=== PATIENT | female | born 2000 | race Caucasian/White ===

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

== ENCOUNTER 2018-01-02 21:38 | Emergency (ER) | payer MEDICAID ==
[2018-01-02] MEDS: ACETAMINOPHEN 325 MG TAB PO (23:54)
== END 2018-01-03 00:13 | disposition home or self-care (01) ==
LOC: M ED 01-03 00:13
DX: S90.02XA Contusion of left ankle, initial encounter (principal); Y04.8XXA Assault by other bodily force, initial encounter; Y92.89 Other specified places as the place of occurrence of the external cause; I10 Essential (primary) hypertension; F60.3 Borderline personality disorder; F41.9 Anxiety disorder, unspecified; F43.10 Post-traumatic stress disorder, unspecified; E28.2 Polycystic ovarian syndrome; Z79.899 Other long term (current) drug therapy
CPT/HCPCS: 73590

== ENCOUNTER 2018-01-07 00:27 | Emergency (ER) | payer MEDICAID | END 2018-01-07 04:36 | disposition home or self-care (01) | LOC: M ED 00:27 | DX: R45.89 Other symptoms and signs involving emotional state (principal); F91.9 Conduct disorder, unspecified; F60.9 Personality disorder, unspecified; Z88.0 Allergy status to penicillin; Z88.1 Allergy status to other antibiotic agents; Z88.2 Allergy status to sulfonamides; Z88.8 Allergy status to other drugs, medicaments and biological substances; Z91.040 Latex allergy status; Z91.048 Other nonmedicinal substance allergy status; F17.210 Nicotine dependence, cigarettes, uncomplicated | CPT/HCPCS: 99284 ==

== ENCOUNTER 2018-01-08 04:23 | Emergency (ER) | payer MEDICAID ==
[2018-01-08] MEDS: NAPROXEN 250 MG TAB PO (04:58)
== END 2018-01-08 05:12 | disposition home or self-care (01) ==
LOC: M ED 04:23
DX: S63.501A Unspecified sprain of right wrist, initial encounter (principal); X50.9XXA Other and unspecified overexertion or strenuous movements or postures, initial encounter; Y92.410 Unspecified street and highway as the place of occurrence of the external cause; Y93.K1 Activity, walking an animal; Z76.5 Malingerer [conscious simulation]; Z88.0 Allergy status to penicillin; Z88.1 Allergy status to other antibiotic agents; Z88.2 Allergy status to sulfonamides; Z88.8 Allergy status to other drugs, medicaments and biological substances; Z91.040 Latex allergy status; Z91.048 Other nonmedicinal substance allergy status; F17.210 Nicotine dependence, cigarettes, uncomplicated
CPT/HCPCS: 99283

== ENCOUNTER 2018-01-11 23:17 | Emergency (ER) | payer MEDICAID | END 2018-01-12 04:53 | disposition home or self-care (01) | LOC: M ED 23:17 | DX: Z73.89 Other problems related to life management difficulty (principal); Z59.9 Problem related to housing and economic circumstances, unspecified; F60.3 Borderline personality disorder; Z91.040 Latex allergy status; Z88.0 Allergy status to penicillin; Z88.2 Allergy status to sulfonamides; Z88.8 Allergy status to other drugs, medicaments and biological substances; Z88.1 Allergy status to other antibiotic agents | CPT/HCPCS: 99283 ==

== ENCOUNTER → 2018-01-13 | Outpatient (REF) | payer MEDICAID ==
[2018-01-13 19:01] LABS: HCG, SERUM QUANTITATIVE < 1.0 MIU/ML
== END ==
LOC: M LAB REF 17:48
DX: N91.0 Primary amenorrhea (principal)

== ENCOUNTER → 2018-01-14 | Outpatient (CLI) | payer MEDICAID ==
[2018-01-14 14:18] LABS: CONTROL LINE UCG INT CTR LINE PRESENT; URINE PREG TEST NEGATIVE (NEGATIVE)
[2018-01-14 14:25] LABS: AMORPHOUS SEDIMENT SMALL (NEGATIVE); APPEARANCE, URINE CLEAR (CLEAR); BACTERIA, URINE AUTO NEGATIVE (NEGATIVE); BILIRUBIN, URINE AUTO NEGATIVE (NEGATIVE); BLOOD, URINE BLOOD 1+ (NEGATIVE); COLOR, URINE STRAW (YELLOW); GLUCOSE, URINE (UA) AUTO NEGATIVE (NEGATIVE); KETONE, URINE AUTO NEGATIVE (NEGATIVE); LEUKOCYTE ESTERASE, URINE AUTO NEGATIVE (NEGATIVE); NITRITE, URINE AUTO NEGATIVE (NEGATIVE); PROTEIN, URINE AUTO NEGATIVE (NEGATIVE); RBC, URINE AUTO 1 /HPF (0-3); SPECIFIC GRAVITY URINE AUTO 1.005 (1.002-1.035); SQUAMOUS EPITHELIAL CELL UR AU 2 /HPF (0-6); UROBILINOGEN, URINE AUTO 0.2 mg/dL (0.0-2.0); WBC, URINE AUTO 1 /HPF (0-3)
== END ==
LOC: M LAB 14:05
DX: O23.40 Unspecified infection of urinary tract in pregnancy, unspecified trimester (principal); Z3A.00 Weeks of gestation of pregnancy not specified
CPT/HCPCS: 84703

== ENCOUNTER 2018-01-15 12:12 | Emergency (ER) | payer OTHER, MEDICAID ==
[2018-01-15 13:21] LABS: CONTROL LINE HCG INT CTR LINE PRESENT; HCG, SERUM QUALITATIVE NEGATIVE (NEGATIVE)
== END 2018-01-15 13:40 | disposition home or self-care (01) ==
LOC: M ED 12:12
DX: R10.9 Unspecified abdominal pain (principal); G89.29 Other chronic pain; I10 Essential (primary) hypertension; E78.00 Pure hypercholesterolemia, unspecified; E28.2 Polycystic ovarian syndrome; F43.10 Post-traumatic stress disorder, unspecified; F41.9 Anxiety disorder, unspecified; F32.9 Major depressive disorder, single episode, unspecified; F60.3 Borderline personality disorder; Z88.8 Allergy status to other drugs, medicaments and biological substances; Z88.2 Allergy status to sulfonamides; Z88.0 Allergy status to penicillin; Z91.048 Other nonmedicinal substance allergy status; Z91.040 Latex allergy status
CPT/HCPCS: 84703

== ENCOUNTER 2018-01-19 00:59 | Emergency (ER) | payer OTHER | END 2018-01-19 05:28 | disposition home or self-care (01) | LOC: M ED 00:59 | DX: R45.89 Other symptoms and signs involving emotional state (principal); R10.9 Unspecified abdominal pain; R11.2 Nausea with vomiting, unspecified; F60.9 Personality disorder, unspecified; F31.9 Bipolar disorder, unspecified; E66.9 Obesity, unspecified; Z88.0 Allergy status to penicillin; Z88.1 Allergy status to other antibiotic agents; Z88.2 Allergy status to sulfonamides; Z88.8 Allergy status to other drugs, medicaments and biological substances; Z91.040 Latex allergy status; Z91.048 Other nonmedicinal substance allergy status | CPT/HCPCS: 99283 ==

== ENCOUNTER 2018-01-23 01:02 | Emergency (ER) | payer OTHER ==
[2018-01-23] MEDS: ACETAMINOPHEN TAB 650MG DOSE (2X325MG) PO (03:30)
== END 2018-01-23 03:36 | disposition home or self-care (01) ==
LOC: M ED 01:02
DX: S93.401A Sprain of unspecified ligament of right ankle, initial encounter (principal); S00.83XA Contusion of other part of head, initial encounter; Y04.8XXA Assault by other bodily force, initial encounter; Y92.018 Other place in single-family (private) house as the place of occurrence of the external cause; Z88.0 Allergy status to penicillin; Z88.1 Allergy status to other antibiotic agents; Z88.2 Allergy status to sulfonamides; Z88.8 Allergy status to other drugs, medicaments and biological substances; Z91.040 Latex allergy status; Z91.048 Other nonmedicinal substance allergy status
CPT/HCPCS: 73600

== ENCOUNTER 2018-03-07 02:12 | Emergency (ER) | payer OTHER ==
[2018-03-07] MEDS: ONDANSETRON 4 MG ORAL DISINTEGRATING TAB (Q0162 PER 1MG) PO (05:22)
== END 2018-03-07 05:35 | disposition home or self-care (01) ==
LOC: M ED 02:12
DX: G89.29 Other chronic pain (principal); R10.9 Unspecified abdominal pain; F60.3 Borderline personality disorder; R11.2 Nausea with vomiting, unspecified; R19.7 Diarrhea, unspecified; F31.9 Bipolar disorder, unspecified; E66.8 Other obesity; Z79.899 Other long term (current) drug therapy; Z88.0 Allergy status to penicillin; Z88.1 Allergy status to other antibiotic agents; Z88.2 Allergy status to sulfonamides; Z88.8 Allergy status to other drugs, medicaments and biological substances; Z91.040 Latex allergy status; Z91.048 Other nonmedicinal substance allergy status
CPT/HCPCS: Q0162

== ENCOUNTER 2018-03-21 21:44 | Inpatient (IN) | payer MEDICAID, OTHER ==
[2018-03-21 23:35] LABS: HEMATOCRIT 35.9 % (36.0-47.0); HEMOGLOBIN 10.9 g/dl (12.0-15.5); MEAN CORPUSCULAR HEMOGLOBIN 26.6 pg (27.0-33.0); MEAN CORPUSCULAR HGB CONC 30.4 g/dl (32.0-36.5); MEAN CORPUSCULAR VOLUME 87.6 fl (80.0-96.0); PLATELET COUNT, AUTOMATED 162 10^3/uL (150-450); RED CELL DISTRIBUTION WIDTH 15.2 % (11.5-14.5); WHITE BLOOD COUNT 4.8 10^3/uL (4.0-10.0)
[2018-03-21 23:42] LABS: AMPHETAMINES LEVEL URINE NEGATIVE (NEGATIVE); BARBITURATES URINE NEGATIVE (NEGATIVE); BENZODIAZEPINES URINE NEGATIVE (NEGATIVE); CANNABINOIDS URINE NEGATIVE (NEGATIVE); COCAINE METABOLITE URINE NEGATIVE (NEGATIVE); METHADONE URINE NEGATIVE (NEGATIVE); OPIATES URINE NEGATIVE (NEGATIVE); PHENCYCLIDINE URINE NEGATIVE (NEGATIVE)
[2018-03-21 23:55] LABS: CONTROL LINE HCG INT CTR LINE PRESENT; HCG, SERUM QUALITATIVE NEGATIVE (NEGATIVE)
[2018-03-22 00:05] LABS: ALBUMIN 3.3 GM/DL (3.2-5.2); ALBUMIN/GLOBULIN RATIO 0.94 (1.00-1.93); ALKALINE PHOSPHATASE 109 U/L (45-117); ALT/SGPT 54 U/L (12-78); ANION GAP 9 MEQ/L (8-16); AST/SGOT 33 U/L (7-37); BILIRUBIN,DIRECT < 0.1 MG/DL (0.0-0.2); BILIRUBIN,TOTAL 0.2 MG/DL (0.2-1.0); BLOOD UREA NITROGEN 11 MG/DL (7-18); CALCIUM LEVEL 8.1 MG/DL (8.5-10.1); CARBON DIOXIDE LEVEL 25 MEQ/L (21-32); CHLORIDE LEVEL 110 MEQ/L (98-107); CREATININE FOR GFR 0.94 MG/DL (0.55-1.30); ETHYL ALCOHOL (ETHANOL) < 0.003 % (0.000-0.010); GLUCOSE, FASTING 115 MG/DL (70-100); POTASSIUM SERUM 3.8 MEQ/L (3.5-5.1); SALICYLATE LEVEL < 1.7 MG/DL (5.0-30.0); SODIUM LEVEL 144 MEQ/L (136-145); TOTAL PROTEIN 6.8 GM/DL (6.4-8.2)
[2018-03-22 00:25] LABS: ACETAMINOPHEN LEVEL < 2.0 UG/ML (10.0-30.0)
[2018-03-22] MEDS ORDERED: MAALOX 30 ML SUSP *UDC PO (01:00)
[2018-03-22] MEDS ORDERED: MOM 30ML SUSPENSION UDC PO (01:00)
[2018-03-22] MEDS: OLANZapine ORAL DISINTEGRATING TAB 5MG PO (08:09)
[2018-03-22] MEDS: NICOTINE 21MG/24HR 1 EA TRANSDERMAL TD (08:09)
[2018-03-22] MEDS: ACETAMINOPHEN TAB 650MG DOSE (2X325MG) PO (08:09)
[2018-03-22] MEDS: SERTRALINE HCL 50 MG TAB PO (09:19)
[2018-03-22] MEDS: QUEtiapine FUMARATE 100 MG TAB PO ×2 (09:19→20:45)
[2018-03-22] MEDS: guaiFENesin ER 600 MG TAB PO ×2 (10:32→20:45)
[2018-03-22] MEDS: CEFDINIR 300 MG CAP (OMNICEF) PO ×2 (10:32→20:45)
[2018-03-22] MEDS: FLUTICASONE PROP 0.05% NASAL SPRAY 16 GM (FLONASE) NARES (10:42)
[2018-03-22] MEDS: IBUPROFEN 400 MG TAB PO (13:26)
[2018-03-22] MEDS: traZODone 50 MG TAB PO (20:45)
[2018-03-23 07:18] LABS: MEAN CORPUSCULAR HEMOGLOBIN 26.3 pg (27.0-33.0); MEAN CORPUSCULAR HGB CONC 30.6 g/dl (32.0-36.5); MEAN CORPUSCULAR VOLUME 85.9 fl (80.0-96.0); PLATELET COUNT, AUTOMATED 135 10^3/uL (150-450); RED BLOOD COUNT 4.19 10^6/uL (4.00-5.40); RED CELL DISTRIBUTION WIDTH 15.2 % (11.5-14.5); WHITE BLOOD COUNT 3.6 10^3/uL (4.0-10.0)
[2018-03-23 07:48] LABS: FERRITIN 11 NG/ML (8-252); IRON (FE) 45 UG/DL (50-170); PERCENT SATURATION 14.4 % (13.2-45.0); TOTAL IRON BINDING CAPACITY 313 UG/DL (250-450)
[2018-03-23] MEDS: NICOTINE 21MG/24HR 1 EA TRANSDERMAL TD (08:12)
[2018-03-23] MEDS: IBUPROFEN 400 MG TAB PO ×2 (08:13→21:10)
[2018-03-23] MEDS: FLUTICASONE PROP 0.05% NASAL SPRAY 16 GM (FLONASE) NARES (08:13)
[2018-03-23] MEDS: CEFDINIR 300 MG CAP (OMNICEF) PO ×2 (08:13→20:46)
[2018-03-23] MEDS: QUEtiapine FUMARATE 100 MG TAB PO ×4 (08:13→20:47)
[2018-03-23] MEDS: SERTRALINE HCL 50 MG TAB PO (08:13)
[2018-03-23] MEDS: guaiFENesin ER 600 MG TAB PO ×2 (08:13→20:46)
[2018-03-23 09:23] LABS: FOLATE 13.7 NG/ML (>5.4); VITAMIN B12 LEVEL 388 PG/ML (247-911)
[2018-03-23] MEDS: OLANZapine ORAL DISINTEGRATING TAB 5MG PO (21:09)
[2018-03-23] MEDS: traZODone 50 MG TAB PO (21:10)
[2018-03-24] MEDS: NICOTINE 21MG/24HR 1 EA TRANSDERMAL TD (08:46)
[2018-03-24] MEDS: FLUTICASONE PROP 0.05% NASAL SPRAY 16 GM (FLONASE) NARES (08:47)
[2018-03-24] MEDS: SERTRALINE HCL 50 MG TAB PO (08:47)
[2018-03-24] MEDS: CEFDINIR 300 MG CAP (OMNICEF) PO (08:47)
[2018-03-24] MEDS: QUEtiapine FUMARATE 100 MG TAB PO ×2 (08:48→12:48)
[2018-03-24] MEDS: guaiFENesin ER 600 MG TAB PO (08:48)
[2018-03-24] MEDS ORDERED: SODIUM CHLORIDE NASAL 0.65% SPRAY BTL (OCEAN) (14:00)
[2018-03-24] MEDS: CETIRIZINE (ZyrTEC) 10 MG TAB PO (14:17)
[2018-03-24] MEDS ORDERED: ERYTHROMYCIN OPHTH OINT OU (16:00)
== END 2018-03-24 15:12 | disposition home or self-care (01) | DRG 885 ==
LOC: M ED INP 03-22 00:54 → M ED 21:44 → M PSY 03-22 01:53
DX: F33.1 Major depressive disorder, recurrent, moderate (principal); F60.3 Borderline personality disorder; F43.10 Post-traumatic stress disorder, unspecified; F17.210 Nicotine dependence, cigarettes, uncomplicated; J30.9 Allergic rhinitis, unspecified; H10.32 Unspecified acute conjunctivitis, left eye; E78.5 Hyperlipidemia, unspecified; E66.9 Obesity, unspecified; E55.9 Vitamin D deficiency, unspecified; R51 Headache; Z62.811 Personal history of psychological abuse in childhood; Z88.0 Allergy status to penicillin; Z88.2 Allergy status to sulfonamides; Z79.899 Other long term (current) drug therapy; Z91.040 Latex allergy status; Z88.8 Allergy status to other drugs, medicaments and biological substances

== ENCOUNTER 2018-03-25 08:51 | Emergency (ER) | payer OTHER, MEDICAID ==
[2018-03-25] MEDS: GENTAMICIN 0.3% OPHTH SOL 5 ML BTL OS (09:29)
== END 2018-03-25 09:37 | disposition home or self-care (01) ==
LOC: M ED 08:51
DX: S50.12XA Contusion of left forearm, initial encounter (principal); H10.9 Unspecified conjunctivitis; Y04.8XXA Assault by other bodily force, initial encounter; Y92.9 Unspecified place or not applicable; Y93.9 Activity, unspecified; Y99.9 Unspecified external cause status; I10 Essential (primary) hypertension; E28.2 Polycystic ovarian syndrome; F41.9 Anxiety disorder, unspecified; F43.10 Post-traumatic stress disorder, unspecified; F60.3 Borderline personality disorder; Z87.891 Personal history of nicotine dependence; Z79.899 Other long term (current) drug therapy; Z91.040 Latex allergy status; Z88.0 Allergy status to penicillin; Z88.8 Allergy status to other drugs, medicaments and biological substances; Z88.2 Allergy status to sulfonamides; Z88.1 Allergy status to other antibiotic agents
CPT/HCPCS: 73090

== ENCOUNTER 2018-03-25 18:44 | Emergency (ER) | payer OTHER ==
[2018-03-25 22:03] LABS: BASO % 0.2 % (0.0-1.0); EOS # 0.1 10^3/uL (0.0-0.50); EOS % 1.7 % (0.0-3.0); HEMATOCRIT 36.5 % (36.0-47.0); HEMOGLOBIN 11.2 g/dl (12.0-15.5); IMMATURE GRANULOCYTE % 0.4 % (0-3.0); KETONE, URINE AUTO RFX NEGATIVE (NEGATIVE); LEUKOCYTE ESTERASE UR AUTO RFX 3+ (NEGATIVE); LYMPH # 2.3 10^3/uL (1.5-6.5); LYMPH % 44.9 % (24.0-44.0); MEAN CORPUSCULAR HEMOGLOBIN 26.9 pg (27.0-33.0); MEAN CORPUSCULAR HGB CONC 30.7 g/dl (32.0-36.5); MEAN CORPUSCULAR VOLUME 87.5 fl (80.0-96.0); MONO # 0.6 10^3/uL (0.0-0.8); MONO % 12.4 % (0.0-5.0); MUCUS, URINE RFX MODERATE (NEGATIVE); NEUTROPHILS # 2.1 10^3/uL (1.8-7.7); NEUTROPHILS % 40.4 % (36.0-66.0); NITRITE, URINE AUTO RFX NEGATIVE (NEGATIVE); PLATELET COUNT, AUTOMATED 159 10^3/uL (150-450); RBC, URINE AUTO RFX 13 /HPF (0-3); RED BLOOD COUNT 4.17 10^6/uL (4.00-5.40); RED CELL DISTRIBUTION WIDTH 14.9 % (11.5-14.5); SPECIFIC GRAVITY UR AUTO RFX 1.027 (1.002-1.035); SQUAM EPITHELIAL CELL UR AURFX 6 /HPF (0-6); WBC, URINE AUTO RFX 37 /HPF (0-3); WHITE BLOOD COUNT 5.2 10^3/uL (4.0-10.0)
[2018-03-25 22:25] LABS: ALBUMIN 3.3 GM/DL (3.2-5.2); ALBUMIN/GLOBULIN RATIO 0.94 (1.00-1.93); ALKALINE PHOSPHATASE 101 U/L (45-117); ALT/SGPT 60 U/L (12-78); AMYLASE 30 U/L (25-115); ANION GAP 6 MEQ/L (8-16); AST/SGOT 38 U/L (7-37); BILIRUBIN,DIRECT < 0.1 MG/DL (0.0-0.2); BILIRUBIN,TOTAL 0.2 MG/DL (0.2-1.0); BLOOD UREA NITROGEN 11 MG/DL (7-18); CALCIUM LEVEL 8.3 MG/DL (8.5-10.1); CARBON DIOXIDE LEVEL 28 MEQ/L (21-32); CHLORIDE LEVEL 111 MEQ/L (98-107); CREATININE FOR GFR 0.76 MG/DL (0.55-1.30); GLUCOSE, FASTING 116 MG/DL (70-100); LIPASE 120 U/L (73-393); POTASSIUM SERUM 4.1 MEQ/L (3.5-5.1); SODIUM LEVEL 145 MEQ/L (136-145); TOTAL PROTEIN 6.8 GM/DL (6.4-8.2)
[2018-03-25] MEDS: ONDANSETRON 4MG/2ML VIAL (J2405) IV (22:26)
[2018-03-25] MEDS: NS 1,000 ML IV (22:26)
[2018-03-25] MEDS ORDERED: ISOVUE-370 76% 100ML VIAL (Q9967) As Ordered (22:27)
[2018-03-25 22:36] LABS: CONTROL LINE UCG INT CTR LINE PRESENT; URINE PREG TEST NEGATIVE (NEGATIVE)
[2018-03-26] MEDS: CIPROFLOXACIN 500 MG TAB PO (00:03)
== END 2018-03-26 00:10 | disposition home or self-care (01) ==
LOC: M ED 03-26 00:10
DX: N39.0 Urinary tract infection, site not specified (principal); I10 Essential (primary) hypertension; E78.00 Pure hypercholesterolemia, unspecified; K21.9 Gastro-esophageal reflux disease without esophagitis; F41.8 Other specified anxiety disorders; R10.9 Unspecified abdominal pain; F43.10 Post-traumatic stress disorder, unspecified
CPT/HCPCS: J2405

== ENCOUNTER 2018-03-28 22:29 | Emergency (ER) | payer OTHER | END 2018-03-29 00:49 | disposition home or self-care (01) | LOC: M ED 03-29 00:49 | DX: Z76.5 Malingerer [conscious simulation] (principal); F33.9 Major depressive disorder, recurrent, unspecified; F60.3 Borderline personality disorder; Z79.899 Other long term (current) drug therapy; Z88.0 Allergy status to penicillin; Z88.1 Allergy status to other antibiotic agents; Z88.2 Allergy status to sulfonamides; Z88.8 Allergy status to other drugs, medicaments and biological substances; Z91.040 Latex allergy status; Z91.048 Other nonmedicinal substance allergy status; F17.210 Nicotine dependence, cigarettes, uncomplicated | CPT/HCPCS: 99284 ==

== ENCOUNTER 2018-03-31 21:06 | Emergency (ER) | payer OTHER | END 2018-04-01 00:46 | disposition left against medical advice (07) | LOC: M ED 21:06 | DX: R11.10 Vomiting, unspecified (principal); Z53.21 Procedure and treatment not carried out due to patient leaving prior to being seen by health care provider ==

== ENCOUNTER 2018-04-12 23:24 | Emergency (ER) | payer OTHER | END 2018-04-13 00:37 | disposition home or self-care (01) | LOC: M ED 23:24 | DX: R05 Cough (principal); M25.531 Pain in right wrist; F17.200 Nicotine dependence, unspecified, uncomplicated; Z79.899 Other long term (current) drug therapy | CPT/HCPCS: 99284 ==

== ENCOUNTER 2018-04-14 20:50 | Inpatient (IN) | payer MEDICAID, OTHER ==
[2018-04-14 21:56] LABS: CONTROL LINE HCG INT CTR LINE PRESENT; HCG, SERUM QUALITATIVE NEGATIVE (NEGATIVE)
[2018-04-14 21:59] LABS: HEMATOCRIT 36.7 % (36.0-47.0); HEMOGLOBIN 11.5 g/dl (12.0-15.5); MEAN CORPUSCULAR HEMOGLOBIN 26.4 pg (27.0-33.0); MEAN CORPUSCULAR HGB CONC 31.3 g/dl (32.0-36.5); MEAN CORPUSCULAR VOLUME 84.2 fl (80.0-96.0); PLATELET COUNT, AUTOMATED 188 10^3/uL (150-450); RED BLOOD COUNT 4.36 10^6/uL (4.00-5.40); RED CELL DISTRIBUTION WIDTH 15.2 % (11.5-14.5); WHITE BLOOD COUNT 6.2 10^3/uL (4.0-10.0)
[2018-04-14 22:02] LABS: AMPHETAMINES LEVEL URINE NEGATIVE (NEGATIVE); BARBITURATES URINE NEGATIVE (NEGATIVE); BENZODIAZEPINES URINE NEGATIVE (NEGATIVE); CANNABINOIDS URINE NEGATIVE (NEGATIVE); COCAINE METABOLITE URINE NEGATIVE (NEGATIVE); METHADONE URINE NEGATIVE (NEGATIVE); OPIATES URINE NEGATIVE (NEGATIVE); PHENCYCLIDINE URINE NEGATIVE (NEGATIVE)
[2018-04-14 22:11] LABS: ALBUMIN 3.7 GM/DL (3.2-5.2); ALBUMIN/GLOBULIN RATIO 1.03 (1.00-1.93); ALKALINE PHOSPHATASE 78 U/L (45-117); ALT/SGPT 40 U/L (12-78); ANION GAP 6 MEQ/L (8-16); AST/SGOT 24 U/L (7-37); BILIRUBIN,DIRECT < 0.1 MG/DL (0.0-0.2); BILIRUBIN,TOTAL 0.1 MG/DL (0.2-1.0); BLOOD UREA NITROGEN 12 MG/DL (7-18); CALCIUM LEVEL 8.5 MG/DL (8.5-10.1); CARBON DIOXIDE LEVEL 28 MEQ/L (21-32); CHLORIDE LEVEL 110 MEQ/L (98-107); CREATININE FOR GFR 0.75 MG/DL (0.55-1.30); ETHYL ALCOHOL (ETHANOL) < 0.003 % (0.000-0.010); GLUCOSE, FASTING 95 MG/DL (70-100); SALICYLATE LEVEL < 1.7 MG/DL (5.0-30.0); SODIUM LEVEL 144 MEQ/L (136-145); THYROID STIMULATING HORMONE 0.738 uIU/ML (0.463-3.98); TOTAL PROTEIN 7.3 GM/DL (6.4-8.2)
[2018-04-14 22:12] LABS: ACETAMINOPHEN LEVEL < 2.0 UG/ML (10.0-30.0)
[2018-04-15] MEDS ORDERED: MAALOX 30 ML SUSP *UDC PO (03:30)
[2018-04-15] MEDS ORDERED: MOM 30ML SUSPENSION UDC PO (03:30)
[2018-04-15] MEDS: SERTRALINE HCL 50 MG TAB PO (09:04)
[2018-04-15] MEDS: QUEtiapine FUMARATE 100 MG TAB PO ×4 (09:04→21:22)
[2018-04-15] MEDS: ACETAMINOPHEN TAB 650MG DOSE (2X325MG) PO (09:19)
[2018-04-15] MEDS: traZODone 50 MG TAB PO (21:22)
[2018-04-16] MEDS: QUEtiapine FUMARATE 100 MG TAB PO ×4 (09:46→21:00)
[2018-04-16] MEDS: SERTRALINE HCL 50 MG TAB PO (09:46)
[2018-04-16] MEDS: INFLUENZA VIRUS VACCINE HIGH DOSE 0.5 ML SYRINGE (90662) IM (09:47)
[2018-04-16] MEDS: LevoFLOXacin 500 MG TABLET PO (12:23)
[2018-04-16] MEDS: BENZONATATE 100 MG CAP PO ×2 (16:14→21:00)
[2018-04-16] MEDS: LACTOBACILLUS ACIDOPHILUS CAP (BACID) PO (17:32)
[2018-04-17] MEDS: LevoFLOXacin 500 MG TABLET PO (06:07)
[2018-04-17] MEDS: LACTOBACILLUS ACIDOPHILUS CAP (BACID) PO ×2 (08:02→17:43)
[2018-04-17] MEDS: QUEtiapine FUMARATE 100 MG TAB PO ×4 (08:02→20:54)
[2018-04-17] MEDS: NAPROXEN 250 MG TAB PO (08:03)
[2018-04-17] MEDS: SERTRALINE HCL 50 MG TAB PO (08:03)
[2018-04-17] MEDS: BENZONATATE 100 MG CAP PO ×3 (08:03→20:54)
[2018-04-17] MEDS: traZODone 50 MG TAB PO (21:55)
[2018-04-18] MEDS: LevoFLOXacin 500 MG TABLET PO (06:05)
[2018-04-18] MEDS: LACTOBACILLUS ACIDOPHILUS CAP (BACID) PO (07:57)
[2018-04-18] MEDS: QUEtiapine FUMARATE 100 MG TAB PO ×2 (08:26→12:48)
[2018-04-18] MEDS: SERTRALINE 100 MG TAB PO (08:27)
[2018-04-18] MEDS: BENZONATATE 100 MG CAP PO ×2 (08:27→15:02)
[2018-04-18] MEDS: LORazepam 1 MG TAB PO (15:02)
== END 2018-04-18 15:20 | disposition home or self-care (01) | DRG 885 ==
LOC: M ED INP 04-15 03:17 → M ED 20:50 → M PSY 04-15 10:25
DX: F33.9 Major depressive disorder, recurrent, unspecified (principal); F43.10 Post-traumatic stress disorder, unspecified; F60.3 Borderline personality disorder; I10 Essential (primary) hypertension; E78.5 Hyperlipidemia, unspecified; J30.9 Allergic rhinitis, unspecified; E66.9 Obesity, unspecified; M25.531 Pain in right wrist; Z88.0 Allergy status to penicillin; Z88.2 Allergy status to sulfonamides; Z81.8 Family history of other mental and behavioral disorders; Z62.810 Personal history of physical and sexual abuse in childhood; Z91.040 Latex allergy status; Z88.8 Allergy status to other drugs, medicaments and biological substances; Z91.048 Other nonmedicinal substance allergy status; Z79.899 Other long term (current) drug therapy

== ENCOUNTER 2018-04-30 03:19 | Inpatient (IN) | payer MEDICAID ==
[2018-04-30 04:08] LABS: HEMOGLOBIN 11.7 g/dl (12.0-15.5); MEAN CORPUSCULAR HEMOGLOBIN 26.1 pg (27.0-33.0); MEAN CORPUSCULAR HGB CONC 30.8 g/dl (32.0-36.5); MEAN CORPUSCULAR VOLUME 84.8 fl (80.0-96.0); PLATELET COUNT, AUTOMATED 176 10^3/uL (150-450); RED BLOOD COUNT 4.48 10^6/uL (4.00-5.40); RED CELL DISTRIBUTION WIDTH 15.1 % (11.5-14.5); WHITE BLOOD COUNT 4.6 10^3/uL (4.0-10.0)
[2018-04-30] MEDS: diphenhydrAMINE INJ 50MG/ML VIAL (J1200) IM (04:09)
[2018-04-30 04:33] LABS: CONTROL LINE HCG INT CTR LINE PRESENT; HCG, SERUM QUALITATIVE NEGATIVE (NEGATIVE)
[2018-04-30 04:34] LABS: AMPHETAMINES LEVEL URINE NEGATIVE (NEGATIVE); BARBITURATES URINE NEGATIVE (NEGATIVE); BENZODIAZEPINES URINE NEGATIVE (NEGATIVE); CANNABINOIDS URINE NEGATIVE (NEGATIVE); COCAINE METABOLITE URINE NEGATIVE (NEGATIVE); METHADONE URINE NEGATIVE (NEGATIVE); OPIATES URINE NEGATIVE (NEGATIVE); PHENCYCLIDINE URINE NEGATIVE (NEGATIVE)
[2018-04-30 04:44] LABS: ACETAMINOPHEN LEVEL < 2.0 UG/ML (10.0-30.0); ALBUMIN 3.9 GM/DL (3.2-5.2); ALBUMIN/GLOBULIN RATIO 1.26 (1.00-1.93); ALKALINE PHOSPHATASE 77 U/L (45-117); ALT/SGPT 33 U/L (12-78); ANION GAP 6 MEQ/L (8-16); AST/SGOT 29 U/L (7-37); BILIRUBIN,DIRECT < 0.1 MG/DL (0.0-0.2); BILIRUBIN,TOTAL 0.2 MG/DL (0.2-1.0); BLOOD UREA NITROGEN 16 MG/DL (7-18); CALCIUM LEVEL 8.5 MG/DL (8.5-10.1); CARBON DIOXIDE LEVEL 24 MEQ/L (21-32); CHLORIDE LEVEL 111 MEQ/L (98-107); CREATININE FOR GFR 0.74 MG/DL (0.55-1.30); GLUCOSE, FASTING 99 MG/DL (70-100); POTASSIUM SERUM 4.1 MEQ/L (3.5-5.1); SALICYLATE LEVEL 2.1 MG/DL (5.0-30.0); SODIUM LEVEL 141 MEQ/L (136-145)
[2018-04-30] MEDS ORDERED: ACETAMINOPHEN TAB 650MG DOSE (2X325MG) PO (05:00)
[2018-04-30] MEDS ORDERED: MOM 30ML SUSPENSION UDC PO (05:00)
[2018-04-30] MEDS: QUEtiapine FUMARATE 200 MG TAB PO ×3 (08:47→21:35)
[2018-04-30] MEDS: SERTRALINE HCL 50 MG TAB PO ×2 (08:48→09:40)
[2018-04-30] MEDS: traZODone 50 MG TAB PO (21:35)
[2018-05-01] MEDS: ONDANSETRON 4 MG ORAL DISINTEGRATING TAB (Q0162 PER 1MG) PO (09:01)
[2018-05-01] MEDS: diphenhydrAMINE 50 MG CAP PO ×2 (09:01→20:07)
[2018-05-01] MEDS: QUEtiapine FUMARATE 200 MG TAB PO ×2 (09:01→20:07)
[2018-05-01] MEDS: SERTRALINE 100 MG TAB PO (09:01)
[2018-05-01] MEDS: MAALOX 30 ML SUSP *UDC PO (20:07)
[2018-05-01] MEDS: traZODone 50 MG TAB PO (20:07)
[2018-05-02] MEDS: SERTRALINE 100 MG TAB PO (08:47)
[2018-05-02] MEDS: QUEtiapine FUMARATE 200 MG TAB PO ×2 (08:47→20:34)
[2018-05-02] MEDS: diphenhydrAMINE 50 MG CAP PO ×3 (08:47→20:34)
[2018-05-02] MEDS: ONDANSETRON 4 MG ORAL DISINTEGRATING TAB (Q0162 PER 1MG) PO ×2 (08:47→20:34)
[2018-05-02 14:20] LABS: ETHYL ALCOHOL (ETHANOL) < 0.003 % (0.000-0.010)
[2018-05-02] MEDS: MAALOX 30 ML SUSP *UDC PO (18:58)
[2018-05-02] MEDS: traZODone 50 MG TAB PO (20:34)
[2018-05-03] MEDS: SERTRALINE 100 MG TAB PO (07:53)
[2018-05-03] MEDS: QUEtiapine FUMARATE 200 MG TAB PO (07:53)
[2018-05-03] MEDS: MAALOX 30 ML SUSP *UDC PO (07:54)
== END 2018-05-03 13:45 | disposition home or self-care (01) | DRG 753 ==
LOC: M PSY 05-02 16:49 → M ED 03:19 → M ED INP 04:57 → M PSY 05:58
DX: F31.9 Bipolar disorder, unspecified (principal); F43.10 Post-traumatic stress disorder, unspecified; F70 Mild intellectual disabilities; L50.0 Allergic urticaria; F60.3 Borderline personality disorder; E66.9 Obesity, unspecified; Z81.8 Family history of other mental and behavioral disorders; Z81.3 Family history of other psychoactive substance abuse and dependence; Z88.0 Allergy status to penicillin; Z88.2 Allergy status to sulfonamides; Z88.8 Allergy status to other drugs, medicaments and biological substances; Z91.040 Latex allergy status; Z91.048 Other nonmedicinal substance allergy status; Z79.899 Other long term (current) drug therapy

== ENCOUNTER 2018-05-09 01:05 | Emergency (ER) | payer OTHER, MEDICAID ==
[2018-05-09 02:24] LABS: KETONE, URINE AUTO RFX NEGATIVE (NEGATIVE); LEUKOCYTE ESTERASE UR AUTO RFX NEGATIVE (NEGATIVE); MUCUS, URINE RFX SMALL (NEGATIVE); NITRITE, URINE AUTO RFX NEGATIVE (NEGATIVE); RBC, URINE AUTO RFX 1 /HPF (0-3); SPECIFIC GRAVITY UR AUTO RFX 1.011 (1.002-1.035); SQUAM EPITHELIAL CELL UR AURFX 2 /HPF (0-6); WBC, URINE AUTO RFX 2 /HPF (0-3)
[2018-05-09] MEDS ORDERED: ONDANSETRON 4 MG TAB (S0181) As Ordered (04:42)
[2018-05-09] MEDS: ONDANSETRON 4 MG ORAL DISINTEGRATING TAB (Q0162 PER 1MG) PO (04:42)
== END 2018-05-09 04:50 | disposition home or self-care (01) ==
LOC: M ED 01:05
DX: R11.0 Nausea (principal); Z79.899 Other long term (current) drug therapy; Z91.040 Latex allergy status; Z88.0 Allergy status to penicillin; Z88.8 Allergy status to other drugs, medicaments and biological substances; Z88.2 Allergy status to sulfonamides
CPT/HCPCS: Q0162

== ENCOUNTER 2018-05-09 20:29 | Emergency (ER) | payer OTHER | END 2018-05-09 21:41 | disposition home or self-care (01) | LOC: M ED 20:29 | DX: Z60.9 Problem related to social environment, unspecified (principal); F98.9 Unspecified behavioral and emotional disorders with onset usually occurring in childhood and adolescence; Z79.899 Other long term (current) drug therapy; Z91.040 Latex allergy status; Z88.0 Allergy status to penicillin; Z88.8 Allergy status to other drugs, medicaments and biological substances; Z88.2 Allergy status to sulfonamides | CPT/HCPCS: 99284 ==

== ENCOUNTER 2018-05-12 22:15 | Emergency (ER) | payer OTHER ==
[2018-05-12] MEDS: ACETAMINOPHEN 325 MG TAB PO (23:00)
== END 2018-05-12 23:29 | disposition home or self-care (01) ==
LOC: M ED 22:15
DX: S00.03XA Contusion of scalp, initial encounter (principal); S63.92XA Sprain of unspecified part of left wrist and hand, initial encounter; W22.8XXA Striking against or struck by other objects, initial encounter; Y92.410 Unspecified street and highway as the place of occurrence of the external cause; Z88.8 Allergy status to other drugs, medicaments and biological substances; Z88.1 Allergy status to other antibiotic agents; Z88.2 Allergy status to sulfonamides; Z88.0 Allergy status to penicillin; Z91.048 Other nonmedicinal substance allergy status; Z79.899 Other long term (current) drug therapy
CPT/HCPCS: 73100

== ENCOUNTER 2018-08-28 19:19 | Emergency (ER) | payer OTHER ==
[~2018-08-28] VITALS: Ht 167.6 cm; Wt 100.0 kg
[~2018-08-28 19:19] MED LIST: ABIL1INJ2 IM; ABIL1TAB12; ABIL400I IM; ALB2.5NEB INH; ALB2.5NEB NEB; ARIP10TAB PO; ATOR1TAB19 PO; AZIT-10 PO; AZIT-12 PO; BENA25CA4 PO; BENA2CRE2 TOP; CEFD1CAP8; CEFD300CAP PO; CELE20TA PO; CEPA1LOZ2 PO; CIPR-249 PO; CITA20TA4 PO; CLAR10CA3 PO; CLAR1TAB2 PO; CLON0.1D3 TD; DEPA250T32 PO; DIPH50CA PO; DIPHCR TOP; DIVA250T67; DOXY100C37 PO; ESCI10TA2 PO; GABA-843 PO; GENT3OPD OP; GUAI100S27 PO; GUAI20TA PO; GUAI400T9 PO; IBUP-1022 PO; IBUP-1114 PO; LEXA1TAB PO; LEXA1TAB2 PO; LIPI10TA PO; LIPI20TA PO; LORA-243 PO; LORA10TA3 PO; MACR100C43 PO; METH75TA PO; MUCI600T37 PO; NAPR-50 PO; NEUR300C PO; NICO2GUM; OCEA0.654; OMEP10CASR PO; OMEP40CA2 PO; ONDA4TAB6 PO; ORTH1TAB9 PO; PEPC1TAB5 PO; PHEN2SUP PR; PRED20TA PO; PROAAER10 INH; PYRI1TAB5 PO; QUET1TAB8 PO; RALT40TA PO; REGL10TA6 PO; SERO200T PO; SERT-138 PO; SERT-155 PO; SERT50TA PO; TRAM50TA2 PO; TRAZ-160 PO; TRAZO50TA PO; TRI-1TAB PO; TRUVTAB PO; VIST50CA PO; VITA-121 PO; VITA-137 PO; ZITHTAB PO; ZOFR4TAB14 PO
[2018-08-28 20:10] LABS: HEMATOCRIT 37.1 % (36.0-47.0); HEMOGLOBIN 11.4 g/dl (12.0-15.5); MEAN CORPUSCULAR HEMOGLOBIN 25.8 pg (27.0-33.0); MEAN CORPUSCULAR HGB CONC 30.7 g/dl (32.0-36.5); MEAN CORPUSCULAR VOLUME 83.9 fl (80.0-96.0); PLATELET COUNT, AUTOMATED 143 10^3/uL (150-450); RED BLOOD COUNT 4.42 10^6/uL (4.00-5.40); WHITE BLOOD COUNT 6.2 10^3/uL (4.0-10.0)
[2018-08-28 20:27] LABS: HCG, SERUM QUALITATIVE NEGATIVE (NEGATIVE)
[2018-08-28 20:37] LABS: AMPHETAMINES LEVEL URINE NEGATIVE (NEGATIVE); BARBITURATES URINE NEGATIVE (NEGATIVE); BENZODIAZEPINES URINE NEGATIVE (NEGATIVE); CANNABINOIDS URINE NEGATIVE (NEGATIVE); COCAINE METABOLITE URINE NEGATIVE (NEGATIVE); METHADONE URINE NEGATIVE (NEGATIVE); OPIATES URINE NEGATIVE (NEGATIVE); PHENCYCLIDINE URINE NEGATIVE (NEGATIVE)
[2018-08-28 20:43] LABS: ACETAMINOPHEN LEVEL < 2.0 UG/ML (10.0-30.0); ALBUMIN 3.7 GM/DL (3.2-5.2); ALT/SGPT 56 U/L (12-78); BILIRUBIN,DIRECT 0.1 MG/DL (0.0-0.2); BILIRUBIN,TOTAL 0.5 MG/DL (0.2-1.0); BLOOD UREA NITROGEN 15 MG/DL (7-18); CALCIUM LEVEL 8.6 MG/DL (8.5-10.1); CARBON DIOXIDE LEVEL 25 MEQ/L (21-32); CHLORIDE LEVEL 109 MEQ/L (98-107); CREATININE FOR GFR 0.78 MG/DL (0.55-1.30); ETHYL ALCOHOL (ETHANOL) 0.003 % (0.000-0.010); GLUCOSE, FASTING 74 MG/DL (70-100); POTASSIUM SERUM 3.9 MEQ/L (3.5-5.1); SALICYLATE LEVEL < 1.7 MG/DL (5.0-30.0); SODIUM LEVEL 144 MEQ/L (136-145); TOTAL PROTEIN 6.6 GM/DL (6.4-8.2)
[2018-08-29] MEDS ORDERED: SERTRALINE 100 MG TAB PO ONE (07:30)
[2018-08-29] MEDS ORDERED: QUEtiapine FUMARATE 200 MG TAB PO ONE (07:30)
[2018-08-29 08:29] VITALS: BP 114/60
--- NOTE | 2018-08-29 19:53 | ECGEPIP ---
Stationary ECG Study [facility] - ED Test Date: 2018-08-29 Pat Name: RAMYA MCCARTNEY Department: Room: - Gender: F Clinical Rn Liaison: af : 2000 Requested By: Jimi Cleveland Order Number: [id number] Reading MD: Naya Hinojosa Measurements Intervals [place] Rate: 56 P: -23 VA: 134 QRS: 29 QRSD: 96 T: 44 QT: 403 QTc: 389 Interpretive Statements SINUS BRADYCARDIA WITH SINUS ARRHYTHMIA SHORT VA INTERVAL NONSPECIFIC ST T WAVE CHANGES 12/01/[address] T WAVE CHANGES Electronically Signed On 08-29-2018 19:53:27 EST by Naya Hinojosa
== END 2018-08-29 08:31 ==
LOC: M ED 19:19
DX: R45.851 Suicidal ideations (principal); F32.9 Major depressive disorder, single episode, unspecified
CPT/HCPCS: 80048; 80076; 80307; 84443; 84703; 85027; 93005; 99285; G0480

== ENCOUNTER 2018-08-31 20:34 | Emergency (ER) | payer OTHER ==
[~2018-08-31] VITALS: Ht 167.6 cm; Wt 101.4 kg
[2018-08-31] MEDS ORDERED: LIPI10TA (20:43)
[2018-08-31] MEDS ORDERED: NICO2GUM40 (20:43)
[2018-08-31] MEDS ORDERED: SERT25TA88 (20:43)
[2018-08-31] MEDS ORDERED: SERO1TAB3 (20:43)
[2018-08-31] MEDS ORDERED: KEFL500C17 PO (22:37)
[2018-08-31] MEDS ORDERED: IBUP-1114 PO (22:42)
[2018-08-31] MEDS ORDERED: CEPHALEXIN 500 MG CAP PO ONE (22:45)
[2018-08-31 22:48] VITALS: BP 124/74
--- NOTE | 2018-09-01 01:11 | REP ---
Clinical: Trauma/fall with right ankle pain . Technique: AP, lateral, bilateral oblique views. Findings: Mild swelling cannot be excluded. No obvious acute fracture identified. No subcutaneous emphysema or radiodense foreign body. Impression: No obvious acute fracture or dislocation noted. Electronically Signed by Tj More MD 09/01/2018 01:03 A
--- NOTE | 2018-09-01 01:14 | REP ---
Clinical: Trauma with right foot pain . Technique: AP, lateral, bilateral oblique views right foot . Findings: The osseous structures and joint spaces are intact and normal. There is no evidence for acute fracture or dislocation. Surrounding soft tissues are unremarkable. No subcutaneous emphysema or radiodense foreign body. Impression: Normal right foot series the . No acute fracture or dislocation. Electronically Signed by Tj More MD 09/01/2018 01:06 A
== END 2018-08-31 22:50 | disposition home or self-care (01) ==
LOC: M ED 20:34
DX: S93.401A Sprain of unspecified ligament of right ankle, initial encounter (principal); L03.031 Cellulitis of right toe; W10.9XXA Fall (on) (from) unspecified stairs and steps, initial encounter; Y92.9 Unspecified place or not applicable; Y93.9 Activity, unspecified; Y99.9 Unspecified external cause status; E78.5 Hyperlipidemia, unspecified; F32.9 Major depressive disorder, single episode, unspecified; F41.9 Anxiety disorder, unspecified; E28.2 Polycystic ovarian syndrome; Z79.899 Other long term (current) drug therapy; Z91.040 Latex allergy status; Z88.0 Allergy status to penicillin; Z88.2 Allergy status to sulfonamides; Z88.1 Allergy status to other antibiotic agents; Z88.8 Allergy status to other drugs, medicaments and biological substances; Z91.018 Allergy to other foods

== ENCOUNTER 2018-10-30 16:10 | Emergency (ER) | payer MEDICAID, OTHER, SELFPAY ==
[~2018-10-30] VITALS: Ht 167.6 cm; Wt 102.3 kg
[~2018-10-30 16:10] MED LIST changes: +KEFL500C17 PO; +LIPI10TA; +NICO2GUM40; +SERO1TAB3; +SERT25TA88
[2018-10-30 16:11] VITALS: BP 101/52
[2018-10-30] MEDS ORDERED: TRAZ-160 PO (16:18)
[2018-10-30] MEDS ORDERED: ZIPR20CA13 PO (16:18)
--- NOTE | 2018-10-30 16:47 | REP ---
Right foot series: Four views. History: Injury in a fall. Findings: Four views of the right foot demonstrate Achilles calcaneal spurring. A normal os perineum is seen. A tiny os naviculare is noted. No fracture or subluxation is seen. No significant change from the August 31, 2018 radiographs. Impression: No fracture noted. Heel spurring. Electronically Signed by Herman Anthony MD 10/30/2018 04:38 P
--- NOTE | 2018-10-30 16:48 | REP ---
Right ankle four views History: Comparison: 08/31/2018 There is no acute fracture or dislocation. The joint space is normal in appearance. An osteophyte is present on the posterior calcaneus. Impression: There is no acute fracture or dislocation. Electronically Signed by Eddie Thakur MD 10/30/2018 04:40 P
[2018-10-31] MEDS ORDERED: IBUP40TA PO (15:57)
[2018-10-31] MEDS ORDERED: DIPH50CA PO (15:57)
[2018-10-31] MEDS ORDERED: CYCL10TA PO (16:04)
== END 2018-10-30 17:09 | disposition home or self-care (01) ==
LOC: M ED 16:10
DX: S93.401A Sprain of unspecified ligament of right ankle, initial encounter (principal); W00.9XXA Unspecified fall due to ice and snow, initial encounter; Y92.89 Other specified places as the place of occurrence of the external cause; Y93.9 Activity, unspecified; Y99.9 Unspecified external cause status; M77.31 Calcaneal spur, right foot; R51 Headache; E78.00 Pure hypercholesterolemia, unspecified; I10 Essential (primary) hypertension; Z87.01 Personal history of pneumonia (recurrent); K21.9 Gastro-esophageal reflux disease without esophagitis; Z87.440 Personal history of urinary (tract) infections; F41.9 Anxiety disorder, unspecified; F32.9 Major depressive disorder, single episode, unspecified; F43.10 Post-traumatic stress disorder, unspecified; F60.3 Borderline personality disorder; Z79.899 Other long term (current) drug therapy; Z88.8 Allergy status to other drugs, medicaments and biological substances; Z88.0 Allergy status to penicillin; Z88.2 Allergy status to sulfonamides; Z91.040 Latex allergy status; Z91.018 Allergy to other foods

== ENCOUNTER 2018-10-31 13:15 | Inpatient (IN) | payer MEDICAID ==
[~2018-10-31] VITALS: Ht 167.6 cm; Wt 132.7 kg
[~2018-10-31 13:15] MED LIST changes: +ZIPR20CA13 PO
[2018-10-31] MEDS ORDERED: MOM 30ML SUSPENSION UDC PO PRN (15:30)
[2018-10-31] MEDS ORDERED: MAALOX 30 ML SUSP *UDC PO PRN (15:30)
[2018-10-31] MEDS ORDERED: ACETAMINOPHEN TAB 650MG DOSE (2X325MG) PO PRN (15:30)
[2018-10-31] MEDS ORDERED: IBUP40TA PO (15:57)
[2018-10-31] MEDS ORDERED: DIPH50CA PO (15:57)
[2018-10-31] MEDS ORDERED: CYCL10TA PO (16:04)
[2018-10-31 17:03] VITALS: BP 160/105
[2018-10-31] MEDS: traZODone 50 MG TAB PO PRN (21:38)
[2018-10-31] MEDS: IBUPROFEN 800 MG TAB PO PRN (21:38)
[2018-10-31] MEDS: CYCLOBENZAPRINE 10 MG TAB PO PRN (21:39)
[2018-10-31] MEDS: diphenhydrAMINE 50 MG CAP PO PRN (21:39)
[2018-11-01 06:36] VITALS: BP 136/74
[2018-11-01] MEDS ORDERED: ZIPRASIDONE 20MG CAPSULE (GEODON) PO SCH (08:00)
[2018-11-01] MEDS: CYCLOBENZAPRINE 10 MG TAB PO PRN ×2 (09:01→20:23)
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
[2018-11-01] MEDS: ZIPRASIDONE 20MG CAPSULE (GEODON) PO SCH (17:27)
[2018-11-01] MEDS: IBUPROFEN 800 MG TAB PO PRN ×2 (17:28→21:30)
[2018-11-01 18:04] VITALS: BP 124/78
[2018-11-01] MEDS: traZODone 50 MG TAB PO PRN (21:27)
[2018-11-01] MEDS: diphenhydrAMINE 50 MG CAP PO PRN (21:27)
[2018-11-02 06:11] VITALS: BP 121/52
[2018-11-02] MEDS: ZIPRASIDONE 20MG CAPSULE (GEODON) PO SCH (08:44)
[2018-11-02] MEDS: CYCLOBENZAPRINE 10 MG TAB PO PRN (08:45)
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
[2018-11-02] MEDS ORDERED: GEOD20CA14 PO (09:49)
== END 2018-11-02 13:20 | disposition home or self-care (01) | DRG 753 ==
LOC: M ED 13:15 → M ED INP 15:22 → M PSY 16:37
PROVIDERS: ADMIT Psychiatry & Neurology Psychiatry; ATTEND Psychiatry & Neurology Psychiatry
DX: F39 Unspecified mood [affective] disorder (principal); E55.9 Vitamin D deficiency, unspecified; E78.5 Hyperlipidemia, unspecified; S93.402A Sprain of unspecified ligament of left ankle, initial encounter; E66.9 Obesity, unspecified; D64.9 Anemia, unspecified; F60.3 Borderline personality disorder; J30.9 Allergic rhinitis, unspecified; F17.200 Nicotine dependence, unspecified, uncomplicated; F43.10 Post-traumatic stress disorder, unspecified; Z91.410 Personal history of adult physical and sexual abuse; Z62.810 Personal history of physical and sexual abuse in childhood; Z79.899 Other long term (current) drug therapy; Z88.0 Allergy status to penicillin; Z88.2 Allergy status to sulfonamides; Z88.8 Allergy status to other drugs, medicaments and biological substances; Z91.018 Allergy to other foods; Z91.040 Latex allergy status; X58.XXXA Exposure to other specified factors, initial encounter; Y92.9 Unspecified place or not applicable; Z76.5 Malingerer [conscious simulation]

== ENCOUNTER 2018-11-05 17:03 | Emergency (ER) | payer MEDICAID ==
[~2018-11-05] VITALS: Ht 167.6 cm; Wt 137.2 kg
[~2018-11-05 17:03] MED LIST changes: -ARIP10TAB PO; +ARIP1TAB PO; +CYCL10TA PO; +GENT0.3S36 OP; -GENT3OPD OP; +GEOD20CA14 PO; +IBUP40TA PO; +SERT-141 PO; -SERT50TA PO
[2018-11-05] MEDS ORDERED: ONDANSETRON 4 MG ORAL DISINTEGRATING TAB (Q0162 PER 1MG) PO ONE (17:30)
[2018-11-05 18:07] LABS: BASO % 0.3 % (0.0-1.0); EOS # 0.3 10^3/uL (0.0-0.50); EOS % 5.3 % (0.0-3.0); HEMATOCRIT 37.2 % (36.0-47.0); HEMOGLOBIN 11.5 g/dl (12.0-15.5); LYMPH # 1.8 10^3/uL (1.5-6.5); LYMPH % 29.3 % (24.0-44.0); MEAN CORPUSCULAR HEMOGLOBIN 25.8 pg (27.0-33.0); MEAN CORPUSCULAR HGB CONC 30.9 g/dl (32.0-36.5); MEAN CORPUSCULAR VOLUME 83.4 fl (80.0-96.0); MONO # 0.5 10^3/uL (0.0-0.8); MONO % 8.8 % (0.0-5.0); NEUTROPHILS # 3.4 10^3/uL (1.8-7.7); NEUTROPHILS % 56.1 % (36.0-66.0); PLATELET COUNT, AUTOMATED 187 10^3/uL (150-450); RED BLOOD COUNT 4.46 10^6/uL (4.00-5.40)
[2018-11-05 18:18] LABS: URINE PREG TEST NEGATIVE (NEGATIVE)
[2018-11-05 18:30] LABS: ALBUMIN 3.8 GM/DL (3.2-5.2); ALT/SGPT 33 U/L (12-78); BILIRUBIN,DIRECT < 0.1 MG/DL (0.0-0.2); BILIRUBIN,TOTAL 0.2 MG/DL (0.2-1.0); BLOOD UREA NITROGEN 11 MG/DL (7-18); CALCIUM LEVEL 8.6 MG/DL (8.5-10.1); CARBON DIOXIDE LEVEL 27 MEQ/L (21-32); CHLORIDE LEVEL 110 MEQ/L (98-107); CREATININE FOR GFR 0.64 MG/DL (0.55-1.30); GLUCOSE, FASTING 101 MG/DL (70-100); POTASSIUM SERUM 4.1 MEQ/L (3.5-5.1); SODIUM LEVEL 143 MEQ/L (136-145); TOTAL PROTEIN 6.7 GM/DL (6.4-8.2)
[2018-11-05] MEDS ORDERED: PEPT262T2 PO (18:47)
[2018-11-05 18:51] VITALS: BP 123/80
== END 2018-11-05 19:11 | disposition home or self-care (01) ==
LOC: M ED 17:03
DX: G89.29 Other chronic pain (principal); R10.84 Generalized abdominal pain; I10 Essential (primary) hypertension; E28.2 Polycystic ovarian syndrome; F43.10 Post-traumatic stress disorder, unspecified; F31.9 Bipolar disorder, unspecified; F60.3 Borderline personality disorder; Z79.899 Other long term (current) drug therapy; Z88.0 Allergy status to penicillin; Z88.8 Allergy status to other drugs, medicaments and biological substances; Z88.2 Allergy status to sulfonamides; Z88.1 Allergy status to other antibiotic agents; Z91.040 Latex allergy status; Z91.018 Allergy to other foods
CPT/HCPCS: 80048; 80076; 81001; 84703; 85025; 99283; Q0162

== ENCOUNTER 2018-11-07 20:27 | Emergency (ER) | payer MEDICAID ==
[~2018-11-07] VITALS: Ht 167.6 cm; Wt 102.3 kg
[~2018-11-07 20:27] MED LIST changes: +PEPT262T2 PO
[2018-11-07 20:39] VITALS: BP 153/70
[2018-11-07 21:10] LABS: HEMATOCRIT 34.9 % (36.0-47.0); MEAN CORPUSCULAR HEMOGLOBIN 26.6 pg (27.0-33.0); MEAN CORPUSCULAR HGB CONC 31.5 g/dl (32.0-36.5); MEAN CORPUSCULAR VOLUME 84.3 fl (80.0-96.0); PLATELET COUNT, AUTOMATED 149 10^3/uL (150-450); RED BLOOD COUNT 4.14 10^6/uL (4.00-5.40); WHITE BLOOD COUNT 6.3 10^3/uL (4.0-10.0)
[2018-11-07 21:30] LABS: AMPHETAMINES LEVEL URINE NEGATIVE (NEGATIVE); BARBITURATES URINE NEGATIVE (NEGATIVE); BENZODIAZEPINES URINE NEGATIVE (NEGATIVE); CANNABINOIDS URINE NEGATIVE (NEGATIVE); COCAINE METABOLITE URINE NEGATIVE (NEGATIVE); METHADONE URINE NEGATIVE (NEGATIVE); OPIATES URINE NEGATIVE (NEGATIVE); PHENCYCLIDINE URINE NEGATIVE (NEGATIVE)
[2018-11-07 21:35] LABS: HCG, SERUM QUALITATIVE NEGATIVE (NEGATIVE)
[2018-11-07 21:41] LABS: ACETAMINOPHEN LEVEL < 2.0 UG/ML (10.0-30.0); ALBUMIN 3.5 GM/DL (3.2-5.2); ALT/SGPT 28 U/L (12-78); BILIRUBIN,DIRECT < 0.1 MG/DL (0.0-0.2); BILIRUBIN,TOTAL 0.1 MG/DL (0.2-1.0); BLOOD UREA NITROGEN 9 MG/DL (7-18); CARBON DIOXIDE LEVEL 26 MEQ/L (21-32); CHLORIDE LEVEL 110 MEQ/L (98-107); CREATININE FOR GFR 0.69 MG/DL (0.55-1.30); ETHYL ALCOHOL (ETHANOL) < 0.003 % (0.000-0.010); GLUCOSE, FASTING 115 MG/DL (70-100); POTASSIUM SERUM 3.6 MEQ/L (3.5-5.1); SALICYLATE LEVEL < 1.7 MG/DL (5.0-30.0); SODIUM LEVEL 143 MEQ/L (136-145); TOTAL PROTEIN 6.1 GM/DL (6.4-8.2)
== END 2018-11-07 23:46 | disposition home or self-care (01) ==
LOC: M ED 20:27
DX: F43.24 Adjustment disorder with disturbance of conduct (principal)
CPT/HCPCS: 80048; 80076; 80307; 84443; 84703; 85027; 99284; G0480

== ENCOUNTER 2018-11-09 18:00 | Emergency (ER) | payer MEDICAID ==
[~2018-11-09] VITALS: Ht 167.6 cm; Wt 102.3 kg
[~2018-11-09 18:00] MED LIST changes: -CITA20TA4 PO; +CITA20TA6 PO; +GUAI100L6 PO; -GUAI100S27 PO; -NAPR-50 PO; +NAPR-837 PO; -NICO2GUM; +NICO2GUM48
--- NOTE | 2018-11-09 20:38 | REP ---
Clinical: Right lower extremity pain and swelling extending to the foot . Technique: Hicks scale and color Doppler evaluation using linear high frequency transducer. Findings: Ultrasound examination of the right lower extremity deep venous structures from the common femoral vein to the popliteal vein demonstrates normal compressibility flow and wave patterns in response to respiration and augmentation. There is no evidence for deep venous thrombosis. Impression: No evidence for deep venous thrombosis. Electronically Signed by Tj More MD 11/09/2018 08:30 P
[2018-11-09 21:02] VITALS: BP 137/74
== END 2018-11-10 00:01 | disposition home or self-care (01) ==
LOC: M ED 18:00
DX: M79.89 Other specified soft tissue disorders (principal); S93.401A Sprain of unspecified ligament of right ankle, initial encounter; X58.XXXA Exposure to other specified factors, initial encounter; Y92.89 Other specified places as the place of occurrence of the external cause; R00.0 Tachycardia, unspecified; Z91.018 Allergy to other foods; Z91.048 Other nonmedicinal substance allergy status; Z88.2 Allergy status to sulfonamides; Z88.0 Allergy status to penicillin; Z88.8 Allergy status to other drugs, medicaments and biological substances; Z91.040 Latex allergy status; Z79.899 Other long term (current) drug therapy; Z87.891 Personal history of nicotine dependence

== ENCOUNTER 2018-11-09 23:48 | Emergency (ER) | payer MEDICAID ==
[~2018-11-09] VITALS: Ht 160 cm; Wt 121.8 kg
[2018-11-10 00:11] VITALS: BP 119/58
== END 2018-11-10 01:03 | disposition home or self-care (01) ==
LOC: M ED 23:48
DX: F91.9 Conduct disorder, unspecified (principal); Z60.9 Problem related to social environment, unspecified; Z73.4 Inadequate social skills, not elsewhere classified; Z91.018 Allergy to other foods; Z91.048 Other nonmedicinal substance allergy status; Z88.2 Allergy status to sulfonamides; Z88.8 Allergy status to other drugs, medicaments and biological substances; Z91.040 Latex allergy status; Z79.899 Other long term (current) drug therapy

== ENCOUNTER 2018-11-12 20:50 | Emergency (ER) | payer MEDICAID ==
[~2018-11-12] VITALS: Ht 167.6 cm; Wt 102.3 kg
[2018-11-12 20:51] VITALS: BP 127/72
[2018-11-12 23:17] LABS: INFLUENZA A AMPLIFICATION NEGATIVE (NEGATIVE); INFLUENZA B AMPLIFICATION NEGATIVE (NEGATIVE)
== END 2018-11-12 23:43 | disposition home or self-care (01) ==
LOC: M ED 20:50
DX: J06.9 Acute upper respiratory infection, unspecified (principal); I10 Essential (primary) hypertension; E78.5 Hyperlipidemia, unspecified; K21.9 Gastro-esophageal reflux disease without esophagitis; E28.2 Polycystic ovarian syndrome; F31.9 Bipolar disorder, unspecified; F43.10 Post-traumatic stress disorder, unspecified; Z79.899 Other long term (current) drug therapy; Z88.0 Allergy status to penicillin; Z91.041 Radiographic dye allergy status; Z88.8 Allergy status to other drugs, medicaments and biological substances; Z88.2 Allergy status to sulfonamides; Z91.040 Latex allergy status; Z88.1 Allergy status to other antibiotic agents

== ENCOUNTER 2018-11-19 17:50 | Emergency (ER) | payer MEDICAID ==
[~2018-11-19] VITALS: Ht 167.6 cm; Wt 101.4 kg
[2018-11-19] MEDS ORDERED: OXYC1TAB23 PO (17:56)
[2018-11-19] MEDS ORDERED: HYDR-3713 (17:56)
[2018-11-19] MEDS ORDERED: NEXP1IMP SC (17:57)
[2018-11-19] MEDS ORDERED: GABAPENTIN 100 MG CAP PO ONE (18:15)
[2018-11-19] MEDS ORDERED: NEUR100C PO (19:15)
[2018-11-19 20:01] VITALS: BP 118/70
== END 2018-11-19 20:04 | disposition home or self-care (01) ==
LOC: M ED 17:50
DX: M54.10 Radiculopathy, site unspecified (principal); I10 Essential (primary) hypertension; E28.2 Polycystic ovarian syndrome; F43.10 Post-traumatic stress disorder, unspecified; F31.9 Bipolar disorder, unspecified; F60.3 Borderline personality disorder; Z79.899 Other long term (current) drug therapy; Z79.3 Long term (current) use of hormonal contraceptives; Z88.0 Allergy status to penicillin; Z88.2 Allergy status to sulfonamides; Z88.8 Allergy status to other drugs, medicaments and biological substances; Z91.018 Allergy to other foods; Z91.040 Latex allergy status; Z91.048 Other nonmedicinal substance allergy status

== ENCOUNTER 2018-11-21 16:51 | Emergency (ER) | payer MEDICAID ==
[~2018-11-21] VITALS: Ht 167.6 cm; Wt 102.3 kg
[~2018-11-21 16:51] MED LIST changes: +HYDR-3713; +NEUR100C PO; +NEXP1IMP SC; +OXYC1TAB23 PO
[2018-11-21 19:16] VITALS: BP 116/53
--- NOTE | 2018-11-22 08:24 | ECGEPIP ---
Stationary ECG Study [facility] - ED Test Date: 2018-11-21 Pat Name: RAMYA MCCARTNEY Department: Room: - Gender: F Director Retirement: : 2000 Requested By: PARTH Hutchinson Order Number: [id number] Reading MD: Courtney Yo Measurements Intervals [place] Rate: 70 P: 15 MS: 129 QRS: 33 QRSD: 95 T: 51 QT: 375 QTc: 406 Interpretive Statements SINUS RHYTHM NSTTW ABNORMALITY INCREASED RATE 08/29/18 Electronically Signed On 11-22-2018 8:24:23 EDT by Courtney Yo
== END 2018-11-21 19:21 | disposition home or self-care (01) ==
LOC: EDBD 16:51 → M ED 16:51
DX: R45.89 Other symptoms and signs involving emotional state (principal); F60.3 Borderline personality disorder; E66.01 Morbid (severe) obesity due to excess calories; F32.9 Major depressive disorder, single episode, unspecified; Z72.0 Tobacco use; Z79.899 Other long term (current) drug therapy; Z91.040 Latex allergy status; Z91.018 Allergy to other foods; Z88.2 Allergy status to sulfonamides; Z88.0 Allergy status to penicillin; Z88.8 Allergy status to other drugs, medicaments and biological substances; Z88.1 Allergy status to other antibiotic agents

== ENCOUNTER 2018-11-25 18:17 | Emergency (ER) | payer MEDICAID ==
[2018-11-25 19:04] LABS: HEMATOCRIT 35.5 % (36.0-47.0); MEAN CORPUSCULAR HEMOGLOBIN 25.9 pg (27.0-33.0); MEAN CORPUSCULAR VOLUME 83.5 fl (80.0-96.0); PLATELET COUNT, AUTOMATED 184 10^3/uL (150-450); RED BLOOD COUNT 4.25 10^6/uL (4.00-5.40); WHITE BLOOD COUNT 6.2 10^3/uL (4.0-10.0)
[2018-11-25 19:31] LABS: AMPHETAMINES LEVEL URINE NEGATIVE (NEGATIVE); BARBITURATES URINE NEGATIVE (NEGATIVE); BENZODIAZEPINES URINE NEGATIVE (NEGATIVE); CANNABINOIDS URINE NEGATIVE (NEGATIVE); COCAINE METABOLITE URINE NEGATIVE (NEGATIVE); METHADONE URINE NEGATIVE (NEGATIVE); OPIATES URINE NEGATIVE (NEGATIVE); PHENCYCLIDINE URINE NEGATIVE (NEGATIVE)
[2018-11-25 19:32] LABS: HCG, SERUM QUALITATIVE NEGATIVE (NEGATIVE)
[2018-11-25 19:34] LABS: ACETAMINOPHEN LEVEL < 2.0 UG/ML (10.0-30.0); ALBUMIN 3.8 GM/DL (3.2-5.2); ALT/SGPT 35 U/L (12-78); BILIRUBIN,DIRECT < 0.1 MG/DL (0.0-0.2); BILIRUBIN,TOTAL 0.2 MG/DL (0.2-1.0); BLOOD UREA NITROGEN 17 MG/DL (7-18); CALCIUM LEVEL 8.1 MG/DL (8.5-10.1); CARBON DIOXIDE LEVEL 26 MEQ/L (21-32); CHLORIDE LEVEL 109 MEQ/L (98-107); CK-MB VALUE MASS < 1.0 NG/ML (<3.6); CPK CREATINE PHOSPHOKINASE 160 U/L (26-192); CREATININE FOR GFR 0.75 MG/DL (0.55-1.30); ETHYL ALCOHOL (ETHANOL) < 0.003 % (0.000-0.010); GLUCOSE, FASTING 86 MG/DL (70-100); MB/CK RELATIVE INDEX 0.62 (< OR =4); POTASSIUM SERUM 3.8 MEQ/L (3.5-5.1); SALICYLATE LEVEL < 1.7 MG/DL (5.0-30.0); SODIUM LEVEL 144 MEQ/L (136-145); THYROID STIMULATING HORMONE 0.604 uIU/ML (0.463-3.98); TOTAL PROTEIN 6.5 GM/DL (6.4-8.2); TROPONIN I < 0.02 NG/ML (< 0.10)
[2018-11-25] MEDS ORDERED: hydrOXYzine 25 MG TAB PO ONE (21:00)
[2018-11-25] MEDS ORDERED: ACETAMINOPHEN 325 MG TAB PO ONE (21:00)
[2018-11-26 01:10] VITALS: BP 105/46
--- NOTE | 2018-11-26 07:23 | ECGEPIP ---
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
== END 2018-11-26 01:39 ==
LOC: M ED 18:17
DX: R45.851 Suicidal ideations (principal); R07.89 Other chest pain; Z91.018 Allergy to other foods; Z88.0 Allergy status to penicillin; Z88.2 Allergy status to sulfonamides; Z88.8 Allergy status to other drugs, medicaments and biological substances; Z88.1 Allergy status to other antibiotic agents
CPT/HCPCS: 80048; 80076; 80307; 82550; 82553; 84443; 84703; 85027; 93005; 99284; G0480

== ENCOUNTER 2018-12-05 23:37 | Inpatient (IN) | payer MEDICAID ==
[~2018-12-05] VITALS: Ht 167.6 cm; Wt 140.9 kg
[2018-12-05] MEDS ORDERED: CYMB1CAP4 (23:56)
[2018-12-05] MEDS ORDERED: PRAZ1CAP (23:56)
[2018-12-05] MEDS ORDERED: MELO7.5T35 (23:56)
[2018-12-05] MEDS ORDERED: LATU40TA (23:56)
[2018-12-06 00:13] LABS: HEMATOCRIT 35.1 % (36.0-47.0); HEMOGLOBIN 10.9 g/dl (12.0-15.5); MEAN CORPUSCULAR HEMOGLOBIN 26.4 pg (27.0-33.0); MEAN CORPUSCULAR HGB CONC 31.1 g/dl (32.0-36.5); PLATELET COUNT, AUTOMATED 153 10^3/uL (150-450); RED BLOOD COUNT 4.13 10^6/uL (4.00-5.40); WHITE BLOOD COUNT 4.8 10^3/uL (4.0-10.0)
[2018-12-06 00:31] LABS: HCG, SERUM QUALITATIVE NEGATIVE (NEGATIVE)
[2018-12-06 00:33] LABS: AMPHETAMINES LEVEL URINE NEGATIVE (NEGATIVE); BARBITURATES URINE NEGATIVE (NEGATIVE); BENZODIAZEPINES URINE NEGATIVE (NEGATIVE); CANNABINOIDS URINE NEGATIVE (NEGATIVE); COCAINE METABOLITE URINE NEGATIVE (NEGATIVE); METHADONE URINE NEGATIVE (NEGATIVE); OPIATES URINE NEGATIVE (NEGATIVE); PHENCYCLIDINE URINE NEGATIVE (NEGATIVE)
[2018-12-06 01:03] LABS: ACETAMINOPHEN LEVEL < 2.0 UG/ML (10.0-30.0); ALBUMIN 3.7 GM/DL (3.2-5.2); ALT/SGPT 30 U/L (12-78); BILIRUBIN,DIRECT < 0.1 MG/DL (0.0-0.2); BILIRUBIN,TOTAL 0.2 MG/DL (0.2-1.0); BLOOD UREA NITROGEN 16 MG/DL (7-18); CALCIUM LEVEL 8.3 MG/DL (8.5-10.1); CARBON DIOXIDE LEVEL 27 MEQ/L (21-32); CHLORIDE LEVEL 109 MEQ/L (98-107); CREATININE FOR GFR 0.82 MG/DL (0.55-1.30); ETHYL ALCOHOL (ETHANOL) < 0.003 % (0.000-0.010); GLUCOSE, FASTING 120 MG/DL (70-100); POTASSIUM SERUM 3.8 MEQ/L (3.5-5.1); SALICYLATE LEVEL < 1.7 MG/DL (5.0-30.0); SODIUM LEVEL 143 MEQ/L (136-145); TOTAL PROTEIN 6.8 GM/DL (6.4-8.2)
[2018-12-06] MEDS ORDERED: PRAZ1CAP PO (02:03)
[2018-12-06] MEDS ORDERED: LATU40TA PO (02:03)
[2018-12-06] MEDS ORDERED: OXYC1TAB23 PO (02:03)
[2018-12-06] MEDS ORDERED: CYMB1CAP4 PO (02:03)
[2018-12-06] MEDS ORDERED: ACETAMINOPHEN TAB 650MG DOSE (2X325MG) PO PRN (04:15)
[2018-12-06] MEDS ORDERED: MOM 30ML SUSPENSION UDC PO PRN (04:15)
[2018-12-06] MEDS ORDERED: MAALOX 30 ML SUSP *UDC PO PRN (04:15)
[2018-12-06 04:32] VITALS: BP 117/72
[2018-12-06] MEDS ORDERED: MELOXICAM (MOBIC) 7.5 MG TAB PO PRN (05:45)
[2018-12-06] MEDS: DULoxetine 20 MG CAP (CYMBALTA) PO SCH (09:33)
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
[2018-12-06] MEDS ORDERED: FLUTICASONE PROP 0.05% NASAL SPRAY 16 GM (FLONASE) NARES PRN (16:00)
--- NOTE | 2018-12-06 16:04 | HPEPDOC ---
[facility] Medical History & Physical Date of Admission Dec 06, 2018 History and Physical CHIEF COMPLAINT: [Depression, suicide ideation, homicidal ideation] HISTORY OF PRESENT ILLNESS: [18-year-old female with no significant medical past medical history but with psychiatric disorder presenting complaining of suicidal ideation homicidal ideation and admitted to the inpatient mental health. Patient complained of postnasal drip cough, chest discomfort, and right ankle sprain pain. Patient had EKG in the inpatient rehabilitation which did not show any ST elevation in normal sinus rhythm. Patient complained of postnasal drip which causes her to cough requests Flonase for her symptomatically. Patient also complained of right ankle pain for which she had Aircast in the past and Phillip stocking which has worked for her in relieving her comfort. Patient is able to ambulate without any significant pain or difficulty on her right ankle and able to bear weight without the faculty as well. No fever.] PAST MEDICAL HISTORY: Psychiatric disorder PAST SURGICAL HISTORY: Adenoidectomy Tonsillectomy Appendectomy Oophorectomy SOCIAL HISTORY: Patient denies smoking, drinking, or drug abuse FAMILY HISTORY: Family history for diabetes ALLERGIES: Please see below. REVIEW OF SYSTEMS: Template review systems negative other than those described in HPI. HOME MEDICATIONS: Please see below. PHYSICAL EXAMINATION: VITAL SIGNS: Please see below GENERAL APPEARANCE: Resting comfortably HEENT: Normocephalic, PERRLA, Mucous moist, CARDIOVASCULAR: S1,S2, pulse present, regularly, regular, no obvious murmur LUNGS: Equal air entry b/l, no wheezes or crackle ABDOMEN: Soft, BS present, no tenderness, no guarding GENITOURINARY: No Crowder EXTREMITIES: B/L no edema, capillary refill present, right ankle discomfort but patient able to bear weight and states that utilizing Phillip stocking helps with the discomfort. SKIN: Warm, No fever NEUROLOGICAL: Cranial nerves grossly intact PSYCHIATRIC: Normal mood and affect for current situation LABORATORY DATA: See below. EKG: Heart rate of 66, sinus, no ST elevation MICROBIOLOGY: Please see below. Assessment and plan: 18-year-old female with psychiatric disorder but no medical condition who is admitted to the inpatient mental health due to depression, suicidal ideation and homicidal thought. Depression, suicide ideation and homicidal thoughts -Defer further management to the primary psychiatric team Postnasal drip cough -Flonase when necessary Right ankle sprain most likely -We'll not obtain x-ray as patient is able to bear weight without difficulty or pain and thus at this time do not believe there is any fracture at this time. Clinically monitor. -Patient may utilize Phillip for her comfort, Aircast as needed Medicine team will sign off at this time and please contact for further assistance. Thank you. Vital Signs Vital Signs Date Time Temp Pulse Resp B/P (MAP) Pulse Ox O2 Delivery O2 Flow Rate FiO2 12/06/18 04:32 98.4 80 18 117/72 (87) 96 12/06/18 04:14 Room Air Laboratory Data Labs 24H Laboratory Tests 2 12/05/18 23:59: Nucleated Red Blood Cells % (auto) 0.0, Anion Gap 7L, Calcium Level 8.3L, Aspartate Amino Transf (AST/SGOT) 22, Alanine Aminotransferase (ALT/SGPT) 30, Alkaline Phosphatase 73, Total Bilirubin 0.2, Direct Bilirubin < 0.1, Total Protein 6.8, Albumin 3.7, Albumin/Globulin Ratio 1.19, Thyroid Stimulating Hormone (TSH) 2.550, Human Chorionic Gonadotropin, Qual NEGATIVE, Salicylates Level < 1.7L, Urine Amphetamines Screen NEGATIVE, Urine Benzodiazepines Screen NEGATIVE, Urine Opiates Screen NEGATIVE, Urine Methadone Screen NEGATIVE, Acetaminophen Level < 2.0L, Urine Barbiturates Screen NEGATIVE, Urine Phencyclidine Screen NEGATIVE, Urine Cocaine Metabolite Screen NEGATIVE, Urine Cannabinoids Screen NEGATIVE, Ethyl Alcohol Level < 0.003 CBC/BMP Laboratory Tests 12/05/18 23:59 Red Blood Count 4.13, Mean Corpuscular Volume 85.0, Mean Corpuscular Hemoglobin 26.4 L, Mean Corpuscular Hemoglobin Concent 31.1 L, Red Cell Distribution Width 15.2 H Home Medications Scheduled Diphenhydramine HCl (Diphenhydramine HCl) 50 Mg Cap, 50 MG PO QHS TAKES WITH TRAZODONE Duloxetine HCl (Cymbalta) 20 Mg Capsule.dr, 20 MG PO DAILY Etonogestrel (Nexplanon) 68 Mg Imp, 68 MG SC ASDIRECTED Lurasidone Hydrochloride (Latuda) 40 Mg Tablet, 40 MG PO QHS Prazosin Hcl (Prazosin HCl) 1 Mg Capsule, 1 MG PO QHS Trazodone HCl (Trazodone HCl) 50 Mg Tab, 50 MG PO QHS Scheduled PRN Oxycodone HCl/Acetaminophen (Oxycodone-Acetaminophen 5-325) 1 Each Tablet, 1 TAB PO DAILY PRN for PAIN Allergies Coded Allergies: RUBBER (Verified Allergy, Intermediate, 08/28/18) Mushroom (Verified Allergy, Unknown, 08/28/18) Penicillins (Verified Allergy, Unknown, 11/21/18) Sulfa (Sulfonamide Antibiotics) (Verified Allergy, Unknown, 11/21/18) TURKEY (Verified Allergy, Unknown, 08/28/18) emtricitabine (Verified Allergy, Unknown, 11/21/18) latex (Verified Allergy, Unknown, 11/21/18) raltegravir (Verified Allergy, Unknown, 11/21/18) sulfamethoxazole (Verified Allergy, Unknown, 11/21/18) tenofovir (Verified Allergy, Unknown, 11/21/18) tomato (Verified Allergy, Unknown, 11/21/18) trimethoprim (Verified Allergy, Unknown, 11/21/18) A-FIB/CHADSVASC Age/Risk Factor Scoring CHADSVASC: CHADSVASC Response (Comments) Value Age Risk Factor Age < 65 years old 0 Gender Risk Factor Female 1 Hx of CHF No 0 Hx of HTN Yes 1 Hx of Stroke/TIA/or VTE No 0 Hx of Diabetes No 0 Hx of Vascular Disease No 0 Total GABE CERVANTES MD Dec 06, 2018 16:03
[2018-12-06 18:00] VITALS: BP 119/68
[2018-12-06] MEDS ORDERED: LURASIDONE HCL 40 MG TAB (LATUDA) PO SCH (18:00)
[2018-12-06] MEDS: SUMAtriptan SUCCINATE 25 MG TAB PO PRN (20:24)
[2018-12-06] MEDS: diphenhydrAMINE 50 MG CAP PO SCH (20:24)
[2018-12-06] MEDS ORDERED: PRAZOSIN 1 MG CAP PO SCH (21:00)
[2018-12-06] MEDS ORDERED: traZODone 100 MG TAB PO SCH (21:00)
--- NOTE | 2018-12-07 00:46 | ECGEPIP ---
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
[2018-12-07 07:10] VITALS: BP 99/53
[2018-12-07] MEDS: DULoxetine 20 MG CAP (CYMBALTA) PO SCH (08:41)
[2018-12-07] MEDS: VITAMIN B COMPLEX/VIT C CAP PO SCH (08:41)
--- NOTE | 2018-12-07 10:04 | MHIPNPDOC ---
[facility] Progress Note Progress Note DATE OF SERVICE: 12/07/18 HISTORY: Patient is a 18 -year-old , female, who has a history of borderline personality disorder and presents after calling police stating SI/HI and being brought in by [facility]. Per ED report 12/06/18: "Pt. states she was d/c from [facility] earlier today(12/05). Pt. was seen at this ER on 11/25 and transferred to [place] due to full census at this facility. pt. reports that after arriving home, she received texts from a "friend" who told her she should just kill herself , that she was worthless and so on. pt. states she then began feeling suicidal with thoughts of cutting her wrists. she reports also feeling homicidal towards people who were "messsing" with her. She will not contract for safety and states that she is afraid she will harm self if d/c home. Pt. is well known to this facility from multiple admissions and ER visits. She is calm and cooperative at this time, states she has a bit of a headache , states she can't take tylenol or ibuprofen because she has overdosed on them in past and she knows the provider won't give her any, denies wanting other meds at this time." Today on interview endorses feeling "the same". Says she continues to hear voices telling her to kill herself. States medications have not made her feel stable and she continues to have homicidal thoughts to kill her real mother and friend Tucker. States mother lives in [place] and Tucker lives in [place] on [facility]. States she does not have their contact information. Denies symptoms of albaro. Today continues to endorse SI/vague HI. Says she continues to be depressed despite being bubbly and VITAL SIGNS: See below. NEW TEST RESULTS: see below. CURRENT MEDICATIONS: See below. MENTAL STATUS EXAMINATION: General Appearance: unkempt, obese, casual clothing Build: overweight Demeanor: very figety Eye Contact: average Activity: average Behavior: cooperative Speech: clear, spontaneous, reg/rate,rhythm,volume Mood: depressed, anxious Affect: full, other (Smiles and laughs.) Thought Content (Other): guarded Thought Content (Aggressive): none reported Perception (Hallucinations): Denies Perception (Other): none reported Cognition (Impairment of): none reported Cognition(Intelligence Est.): borderline Oriented: Awake, Alert, Oriented times three Insight: improving Judgment: improving Psychosis: Associations (intact), Abstract Thinking (intact) DIAGNOSES: 1. Unspecified depressive disorder 2. Borderline Personality disorder 3. R/O malingering 4. Tobacco use disorder ASSESSMENT: Patient states she is not ready to leave, because she remains "the same". no longer AH since yesterday. Affect incongruent with mood, appears bubbly and happy. Has been attending groups. Says she "slept all night" and ate breakfast. Says she feels tired in the morning despite appearing to be full of energy. She says she wants to feel stable and agrees to have her Latuda increased from 40 to 60 mg Po daily for mood lability. Continue other home medications. Continues to endorse vague SI/HI. Morning BP 90's/50's, decreased prazosin from 2 to 1 mg PO QHS and trazodone from 100 mg to 75 mg PO QHS. MANAGEMENT PLAN: See above. TIME SPENT: 15 minutes. Vital Signs Vital Signs Date Time Temp Pulse Resp B/P (MAP) Pulse Ox O2 Delivery O2 Flow Rate FiO2 12/07/18 07:10 98.7 57 16 99/53 (68) 12/06/18 04:32 96 12/06/18 04:14 Room Air Laboratory Data 24H Labs Laboratory Tests 2 12/07/18 06:53: Current Medications Current Medications Acetaminophen (Tylenol Tab) 650 mg Q6HP PRN PO HEADACHE or DISCOMFORT; Start 12/06/18 at 04:15 Al Hydrox/Mg Hydrox/Simethicone (Mylanta) 30 ml Q4HP PRN PO HEARTBURN/INDIGESTION; Start 12/06/18 at 04:15 Diphenhydramine HCl (Benadryl) 50 mg QHS PO Last administered on 12/06/18at 20:24; Start 12/06/18 at 21:00 Duloxetine HCl (Cymbalta) 40 mg DAILY PO Last administered on 12/06/18at 09:33; Start 12/06/18 at 09:00 Fluticasone Propionate (Flonase 0.05% Nasal [place]) 2 spray DAILYPRN PRN NARES congestion; Start 12/06/18 at 16:00 Home Med (Med Rec Complete!) ASDIRECTED XX ; Start 12/06/18 at 02:15; Stop 12/06/18 at 02:15; Status DC Lurasidone HCl (Latuda) 40 mg DAILY@18 PO Last administered on 12/06/18 17:11; Start 12/06/18 at 18:00 Magnesium Hydroxide (Milk Of Magnesia) 30 ml DAILYPRN PRN PO CONSTIPATION; Start 12/06/18 at 04:15 Meloxicam (Mobic) 7.5 mg BIDP PRN PO PAIN Last administered on 12/06/18 20:24; Start 12/06/18 at 05:45 Prazosin HCl (Minipress) 2 mg QHS PO Last administered on 12/06/18 20:25; Start 12/06/18 at 21:00 Sumatriptan Succinate (Imitrex) 25 mg DAILYPRN PRN PO MIGRAINE Last administered on 12/06/18 20:24; Start 12/06/18 at 05:45 Trazodone HCl (Desyrel) 100 mg QHS PO Last administered on 12/06/18 20:24; Start 12/06/18 at 21:00 Vitamin B Complex/ Vitamin C (Therapeutic B Complex w/C) 1 cap DAILY PO ; Start 12/07/18 at 09:00 Allergies Coded Allergies: RUBBER (Verified Allergy, Intermediate, 08/28/18) Mushroom (Verified Allergy, Unknown, 08/28/18) Penicillins (Verified Allergy, Unknown, 11/21/18) Sulfa (Sulfonamide Antibiotics) (Verified Allergy, Unknown, 11/21/18) TURKEY (Verified Allergy, Unknown, 08/28/18) emtricitabine (Verified Allergy, Unknown, 11/21/18) latex (Verified Allergy, Unknown, 11/21/18) raltegravir (Verified Allergy, Unknown, 11/21/18) sulfamethoxazole (Verified Allergy, Unknown, 11/21/18) tenofovir (Verified Allergy, Unknown, 11/21/18) tomato (Verified Allergy, Unknown, 11/21/18) trimethoprim (Verified Allergy, Unknown, 11/21/18) KATHERIN SCRUGGS PGY-1 Dec 07, 2018 08:04
[2018-12-07 10:15] LABS: HEMOGLOBIN A1c 5.8 %
[2018-12-07] MEDS: SUMAtriptan SUCCINATE 25 MG TAB PO PRN (14:37)
[2018-12-07] MEDS ORDERED: LURASIDONE 20 MG TAB (LATUDA) PO SCH (18:00)
[2018-12-07 18:04] VITALS: BP 133/67
[2018-12-07] MEDS: CEPACOL LOZENGE PO PRN (18:44)
[2018-12-07] MEDS: diphenhydrAMINE 50 MG CAP PO SCH (20:24)
[2018-12-07 20:25] VITALS: BP 130/70
[2018-12-07] MEDS ORDERED: PRAZOSIN 1 MG CAP PO SCH (21:00)
[2018-12-07] MEDS ORDERED: traZODone 50 MG TAB PO SCH (21:00)
[2018-12-08 06:21] VITALS: BP 99/51
[2018-12-08] MEDS: VITAMIN B COMPLEX/VIT C CAP PO SCH (07:56)
[2018-12-08] MEDS: DULoxetine 20 MG CAP (CYMBALTA) PO SCH (07:56)
[2018-12-08] MEDS: CEPACOL LOZENGE PO PRN (10:59)
[2018-12-08] MEDS ORDERED: FLUTISP NARES (11:26)
[2018-12-08] MEDS ORDERED: SORE15LO PO (11:26)
[2018-12-08] MEDS ORDERED: LATU20TA PO (11:26)
[2018-12-08] MEDS ORDERED: MINI1CAP PO (11:26)
[2018-12-08] MEDS ORDERED: MELO7.5T35 PO (11:26)
[2018-12-08] MEDS ORDERED: SUMA25TA3 PO (11:26)
[2018-12-08] MEDS ORDERED: VITABCTA PO (11:26)
[2018-12-08] MEDS ORDERED: TRAZ150T90 PO (11:28)
== END 2018-12-08 13:40 | disposition home or self-care (01) | DRG 754 ==
LOC: M ED 23:37 → M ED INP 12-06 04:01 → M PSY 12-06 04:25
PROVIDERS: ADMIT Psychiatry & Neurology Psychiatry; ATTEND Psychiatry & Neurology Psychiatry
DX: F32.9 Major depressive disorder, single episode, unspecified (principal); F60.3 Borderline personality disorder; R09.82 Postnasal drip; F17.200 Nicotine dependence, unspecified, uncomplicated; Z62.810 Personal history of physical and sexual abuse in childhood; Z91.410 Personal history of adult physical and sexual abuse; Z79.899 Other long term (current) drug therapy; Z88.0 Allergy status to penicillin; Z88.2 Allergy status to sulfonamides; Z91.040 Latex allergy status; Z91.018 Allergy to other foods; Z88.8 Allergy status to other drugs, medicaments and biological substances; Z91.048 Other nonmedicinal substance allergy status; S93.401A Sprain of unspecified ligament of right ankle, initial encounter; X58.XXXA Exposure to other specified factors, initial encounter; Y92.9 Unspecified place or not applicable

== ENCOUNTER 2018-12-10 12:01 | Emergency (ER) | payer MEDICAID ==
[~2018-12-10] VITALS: Ht 167.6 cm; Wt 108.6 kg
[~2018-12-10 12:01] MED LIST changes: +CYMB1CAP4; +CYMB1CAP4 PO; +FLUTISP NARES; +LATU20TA PO; +LATU40TA; +LATU40TA PO; +MELO7.5T35; +MELO7.5T35 PO; +MINI1CAP PO; +PRAZ1CAP; +PRAZ1CAP PO; +SORE15LO PO; +SUMA25TA3 PO; +TRAZ150T90 PO; +VITABCTA PO
[2018-12-10 13:53] LABS: BASO % 0.2 % (0.0-1.0); EOS # 0.1 10^3/uL (0.0-0.50); EOS % 1.4 % (0.0-3.0); HEMOGLOBIN 11.6 g/dl (12.0-15.5); LYMPH # 1.5 10^3/uL (1.5-6.5); LYMPH % 29.1 % (24.0-44.0); MEAN CORPUSCULAR HEMOGLOBIN 26.5 pg (27.0-33.0); MEAN CORPUSCULAR HGB CONC 31.4 g/dl (32.0-36.5); MEAN CORPUSCULAR VOLUME 84.5 fl (80.0-96.0); MONO # 0.5 10^3/uL (0.0-0.8); NEUTROPHILS % 59.1 % (36.0-66.0); PLATELET COUNT, AUTOMATED 160 10^3/uL (150-450); RED BLOOD COUNT 4.38 10^6/uL (4.00-5.40); WHITE BLOOD COUNT 5.1 10^3/uL (4.0-10.0)
[2018-12-10 14:15] LABS: HCG, SERUM QUALITATIVE NEGATIVE (NEGATIVE)
[2018-12-10 14:20] LABS: BLOOD UREA NITROGEN 17 MG/DL (7-18); CALCIUM LEVEL 8.7 MG/DL (8.5-10.1); CARBON DIOXIDE LEVEL 25 MEQ/L (21-32); CHLORIDE LEVEL 114 MEQ/L (98-107); CK-MB VALUE MASS < 1.0 NG/ML (<3.6); CPK CREATINE PHOSPHOKINASE 114 U/L (26-192); CREATININE FOR GFR 0.73 MG/DL (0.55-1.30); GLUCOSE, FASTING 90 MG/DL (70-100); MB/CK RELATIVE INDEX 0.88 (< OR =4); SODIUM LEVEL 144 MEQ/L (136-145); TROPONIN I < 0.02 NG/ML (< 0.10)
[2018-12-10] MEDS ORDERED: GASTROGRAFIN SOLUTION 30ML (Q9963) As Ordered ONE (14:44)
[2018-12-10] MEDS: GASTROGRAFIN SOLUTION 30ML PO SCH ×2 (14:47→14:59)
--- NOTE | 2018-12-10 14:50 | REP ---
Chest two views HISTORY: Chest pain Comparison: 05/01/2018 The lungs are clear. The heart is normal in size. The pulmonary vasculature is normal in appearance. The bony structure is intact. IMPRESSION: No acute disease. Electronically Signed by Eddie Thakur MD 12/10/2018 02:42 P
[2018-12-10] MEDS ORDERED: ISOVUE-370 76% 100ML VIAL (Q9967) As Ordered ONE (14:51)
[2018-12-10] MEDS ORDERED: NS 1,000 ML IV ONE (15:00)
[2018-12-10 16:35] LABS: CHLAMYDIA DNA AMPLIFICATION NEGATIVE (NEGATIVE); GC DNA AMPLIFICATION NEGATIVE (NEGATIVE)
--- NOTE | 2018-12-10 16:49 | ECGEPIP ---
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
[2018-12-10] MEDS ORDERED: KETOROLAC 30 MG/ML VIAL (J1885) IV ONE (17:30)
[2018-12-10 18:11] LABS: CK-MB VALUE MASS < 1.0 NG/ML (<3.6); CPK CREATINE PHOSPHOKINASE 98 U/L (26-192); MB/CK RELATIVE INDEX 1.02 (< OR =4); TROPONIN I < 0.02 NG/ML (< 0.10)
[2018-12-10 20:48] VITALS: BP 131/57
--- NOTE | 2018-12-11 07:55 | REP ---
CT ABDOMEN AND PELVIS WITH CONTRAST: HISTORY: Abdominal pain. CONTRAST: Isovue-370 100 mL COMPARISON: 08/24/2017. The liver, gallbladder, pancreas, spleen, adrenal glands and kidneys are normal in appearance. There is no mass adenopathy of free fluid. The visualized lungs are clear. A 2.7 cm fat containing ventral abdominal hernia is present superior to the umbilicus. A second smaller 1.9 cm fat containing ventral abdominal hernia is present inferior to the first ventral hernia. The urinary bladder and uterus are normal in appearance. A 2.4 cm round structure is present along the right internal lateral aspect of the uterus. This may represent an ovarian cyst or possibly bowel loop. There is no fracture or subluxation. IMPRESSION:1. There are two small fat containing ventral abdominal hernias superior to the umbilicus. 2. There is a 2.4 cm round structure along the right anterolateral aspect of the uterus. This may represent an ovarian cyst of bowel loop. Electronically Signed by Eddie Thakur MD 12/11/2018 08:01 A
--- NOTE | 2018-12-11 08:58 | REP ---
PELVIC ULTRASOUND: Real-time sonographic evaluation of the pelvis performed utilized transabdominal abdomen and endovaginal technique. Bladder measures 9.6 x 4.7 x 7.4 cm. This study is somewhat limited due to patient body habitus. Uterus measures 8.4 x 2.9 x 4.8 cm. Endometrial thickness is 6 mm. Patient has had a prior left oophorectomy. Right ovary measures 3.7 x 1.8 x 2.6 cm. There is no right ovarian torsion with resistive index 0.51. Directly adjacent to the right ovary there appears to be a cyst 3.6 x 2.6 x 2.7 cm. No free fluid is seen. IMPRESSION: Left ovary has been previously surgically removed. Right ovary demonstrates a cyst along its margin measuring 3.6 x 2.6 x 2.7 cm. There are internal echoes within this complex cyst. Recommend followup pelvic ultrasound in 6-8 weeks. No evidence of right ovarian torsion. Preliminary report provided by [facility] at the time of the exam. Electronically Signed by Tapan Hicks MD 12/11/2018 04:19 P
== END 2018-12-10 20:50 | disposition home or self-care (01) ==
LOC: M ED 12:01
DX: N83.201 Unspecified ovarian cyst, right side (principal); I49.9 Cardiac arrhythmia, unspecified; I10 Essential (primary) hypertension; E78.5 Hyperlipidemia, unspecified; F17.210 Nicotine dependence, cigarettes, uncomplicated; Z79.899 Other long term (current) drug therapy; Z86.59 Personal history of other mental and behavioral disorders; Z82.49 Family history of ischemic heart disease and other diseases of the circulatory system; Z83.2 Family history of diseases of the blood and blood-forming organs and certain disorders involving the immune mechanism; Z91.018 Allergy to other foods; Z91.048 Other nonmedicinal substance allergy status; Z88.2 Allergy status to sulfonamides; Z88.1 Allergy status to other antibiotic agents; Z91.040 Latex allergy status
CPT/HCPCS: 71046; 74177; 76830; 76856; 80048; 81001; 82550; 82553; 84703; 85025; 85379; 87086; 87661; 93005; 93976; 96374; 99284; J1885; Q9967

== ENCOUNTER 2018-12-19 08:03 | Emergency (ER) | payer MEDICAID ==
[~2018-12-19] VITALS: Ht 167.6 cm; Wt 101.4 kg
[2018-12-19] MEDS ORDERED: METOCLOPRAMIDE INJ 10MG/2ML VIAL (J2765) IV ONE (08:45)
[2018-12-19] MEDS ORDERED: NS 1,000 ML IV ONE (08:45)
[2018-12-19] MEDS ORDERED: KETOROLAC 30 MG/ML VIAL (J1885) As Ordered ONE (08:49)
[2018-12-19 08:53] LABS: BASO % 0.5 % (0.0-1.0); EOS # 0.3 10^3/uL (0.0-0.50); HEMATOCRIT 35.4 % (36.0-47.0); HEMOGLOBIN 10.9 g/dl (12.0-15.5); LYMPH # 1.9 10^3/uL (1.5-6.5); MEAN CORPUSCULAR HEMOGLOBIN 26.6 pg (27.0-33.0); MEAN CORPUSCULAR HGB CONC 30.8 g/dl (32.0-36.5); MEAN CORPUSCULAR VOLUME 86.3 fl (80.0-96.0); MONO # 0.6 10^3/uL (0.0-0.8); MONO % 9.5 % (0.0-5.0); NEUTROPHILS # 3.1 10^3/uL (1.8-7.7); NEUTROPHILS % 52.8 % (36.0-66.0); PLATELET COUNT, AUTOMATED 147 10^3/uL (150-450); WHITE BLOOD COUNT 5.8 10^3/uL (4.0-10.0)
[2018-12-19] MEDS ORDERED: KETOROLAC 30 MG/ML VIAL (J1885) IV ONE (09:00)
[2018-12-19 09:24] LABS: ALBUMIN 3.6 GM/DL (3.2-5.2); ALT/SGPT 32 U/L (12-78); AMYLASE 34 U/L (25-115); BILIRUBIN,TOTAL 0.2 MG/DL (0.2-1.0); BLOOD UREA NITROGEN 12 MG/DL (7-18); CALCIUM LEVEL 8.2 MG/DL (8.5-10.1); CARBON DIOXIDE LEVEL 28 MEQ/L (21-32); CHLORIDE LEVEL 111 MEQ/L (98-107); GLUCOSE, FASTING 97 MG/DL (70-100); LIPASE 163 U/L (73-393); POTASSIUM SERUM 3.7 MEQ/L (3.5-5.1); SODIUM LEVEL 143 MEQ/L (136-145); TOTAL PROTEIN 6.2 GM/DL (6.4-8.2)
[2018-12-19] MEDS ORDERED: DICY10CA13 PO (09:50)
[2018-12-19] MEDS ORDERED: DICYCLOMINE 10 MG CAP PO ONE (10:00)
[2018-12-19 10:04] VITALS: BP 113/61
== END 2018-12-19 10:06 | disposition home or self-care (01) ==
LOC: M ED 08:03 → EDBD 08:03 → M ED 10:06
DX: R10.84 Generalized abdominal pain (principal); R11.2 Nausea with vomiting, unspecified; R51 Headache; E78.00 Pure hypercholesterolemia, unspecified; I10 Essential (primary) hypertension; Z86.718 Personal history of other venous thrombosis and embolism; Z87.01 Personal history of pneumonia (recurrent); K21.9 Gastro-esophageal reflux disease without esophagitis; Z87.440 Personal history of urinary (tract) infections; E28.2 Polycystic ovarian syndrome; F41.9 Anxiety disorder, unspecified; F32.9 Major depressive disorder, single episode, unspecified; F31.9 Bipolar disorder, unspecified; E66.9 Obesity, unspecified; Z79.899 Other long term (current) drug therapy; Z91.040 Latex allergy status; Z91.018 Allergy to other foods; Z88.0 Allergy status to penicillin; Z88.2 Allergy status to sulfonamides; Z88.1 Allergy status to other antibiotic agents
CPT/HCPCS: 80053; 81001; 82150; 83690; 84702; 85025; 96374; 96375; 99284; J1885; J2765

== ENCOUNTER 2018-12-20 19:19 | Emergency (ER) | payer MEDICAID ==
[~2018-12-20] VITALS: Ht 167.6 cm; Wt 144.4 kg
[~2018-12-20 19:19] MED LIST changes: +DICY10CA13 PO
--- NOTE | 2018-12-20 20:09 | REP ---
HISTORY: Pain in the wrist. No history of trauma. COMPARISON: No priors. FINDINGS: No acute fracture or destructive osseous lesion. Electronically Signed by Zay Cochran DO 12/21/2018 01:33 P
[2018-12-20 20:39] VITALS: BP 13/53
[2018-12-21] MEDS ORDERED: TRAZ150T90 PO (03:17)
[2018-12-21] MEDS ORDERED: SUMA25TA3 PO (03:17)
[2018-12-21] MEDS ORDERED: GABA-1171 PO (03:17)
[2018-12-21] MEDS ORDERED: MOBI4TAB PO (03:17)
[2018-12-21] MEDS ORDERED: DICY1CAP8 PO (03:17)
[2018-12-21] MEDS ORDERED: LATU20TA PO (03:17)
[2018-12-21] MEDS ORDERED: FLON1SPR (03:17)
[2018-12-21] MEDS ORDERED: VITATAB73 PO (03:17)
[2018-12-21] MEDS ORDERED: CYMB1CAP4 PO (03:17)
== END 2018-12-20 20:42 | disposition home or self-care (01) ==
LOC: M ED 19:19
DX: M25.532 Pain in left wrist (principal); Z79.899 Other long term (current) drug therapy; Z79.3 Long term (current) use of hormonal contraceptives; Z88.0 Allergy status to penicillin; Z88.1 Allergy status to other antibiotic agents; Z88.2 Allergy status to sulfonamides; Z88.8 Allergy status to other drugs, medicaments and biological substances; Z91.018 Allergy to other foods; Z91.040 Latex allergy status; Z91.048 Other nonmedicinal substance allergy status

== ENCOUNTER 2018-12-20 22:49 | Inpatient (IN) | payer MEDICAID ==
[~2018-12-20] VITALS: Ht 167.6 cm; Wt 141.3 kg
[2018-12-21] MEDS ORDERED: FAMOTIDINE 20 MG TAB PO ONE
[2018-12-21 00:37] LABS: HEMATOCRIT 37.2 % (36.0-47.0); HEMOGLOBIN 11.4 g/dl (12.0-15.5); MEAN CORPUSCULAR HEMOGLOBIN 26.4 pg (27.0-33.0); MEAN CORPUSCULAR HGB CONC 30.6 g/dl (32.0-36.5); MEAN CORPUSCULAR VOLUME 86.1 fl (80.0-96.0); PLATELET COUNT, AUTOMATED 167 10^3/uL (150-450); RED BLOOD COUNT 4.32 10^6/uL (4.00-5.40)
[2018-12-21 00:52] LABS: HCG, SERUM QUALITATIVE NEGATIVE (NEGATIVE)
[2018-12-21 00:55] LABS: AMPHETAMINES LEVEL URINE NEGATIVE (NEGATIVE); BARBITURATES URINE NEGATIVE (NEGATIVE); BENZODIAZEPINES URINE NEGATIVE (NEGATIVE); CANNABINOIDS URINE NEGATIVE (NEGATIVE); COCAINE METABOLITE URINE NEGATIVE (NEGATIVE); METHADONE URINE NEGATIVE (NEGATIVE); OPIATES URINE NEGATIVE (NEGATIVE); PHENCYCLIDINE URINE NEGATIVE (NEGATIVE)
[2018-12-21 01:13] LABS: ACETAMINOPHEN LEVEL < 2.0 UG/ML (10.0-30.0); ALBUMIN 3.5 GM/DL (3.2-5.2); ALT/SGPT 32 U/L (12-78); BILIRUBIN,DIRECT < 0.1 MG/DL (0.0-0.2); BILIRUBIN,TOTAL 0.2 MG/DL (0.2-1.0); BLOOD UREA NITROGEN 9 MG/DL (7-18); CALCIUM LEVEL 8.4 MG/DL (8.5-10.1); CARBON DIOXIDE LEVEL 24 MEQ/L (21-32); CHLORIDE LEVEL 112 MEQ/L (98-107); CREATININE FOR GFR 0.74 MG/DL (0.55-1.30); ETHYL ALCOHOL (ETHANOL) < 0.003 % (0.000-0.010); GLUCOSE, FASTING 101 MG/DL (70-100); SALICYLATE LEVEL < 1.7 MG/DL (5.0-30.0); SODIUM LEVEL 145 MEQ/L (136-145); TOTAL PROTEIN 6.5 GM/DL (6.4-8.2)
[2018-12-21] MEDS ORDERED: MOM 30ML SUSPENSION UDC PO PRN (02:00)
[2018-12-21] MEDS ORDERED: traZODone 50 MG TAB PO PRN ×2 (02:00→02:15)
[2018-12-21] MEDS ORDERED: ACETAMINOPHEN TAB 650MG DOSE (2X325MG) PO PRN (02:00)
[2018-12-21] MEDS ORDERED: MAALOX 30 ML SUSP *UDC PO PRN (02:00)
[2018-12-21] MEDS ORDERED: METAL LOCK LOOP XX ONE ×2 (02:43→02:51)
[2018-12-21 02:59] VITALS: BP 127/69
[2018-12-21] MEDS ORDERED: MELOXICAM (MOBIC) 7.5 MG TAB PO PRN (03:15)
[2018-12-21] MEDS ORDERED: SUMAtriptan SUCCINATE 25 MG TAB PO PRN (03:15)
[2018-12-21] MEDS ORDERED: FLUTICASONE PROP 0.05% NASAL SPRAY 16 GM (FLONASE) PRN (03:15)
[2018-12-21] MEDS ORDERED: SUMA25TA3 PO (03:17)
[2018-12-21] MEDS ORDERED: TRAZ150T90 PO (03:17)
[2018-12-21] MEDS ORDERED: CYMB1CAP4 PO (03:17)
[2018-12-21] MEDS ORDERED: LATU20TA PO (03:17)
[2018-12-21] MEDS ORDERED: MOBI4TAB PO (03:17)
[2018-12-21] MEDS ORDERED: DICY1CAP8 PO (03:17)
[2018-12-21] MEDS ORDERED: GABA-1171 PO (03:17)
[2018-12-21] MEDS ORDERED: VITATAB73 PO (03:17)
[2018-12-21] MEDS ORDERED: FLON1SPR (03:17)
[2018-12-21 06:20] VITALS: BP 121/58
[2018-12-21] MEDS ORDERED: diphenhydrAMINE 50 MG CAP PO STA (09:56)
[2018-12-21] MEDS ORDERED: LORazepam 1 MG TAB PO STA (09:57)
[2018-12-21] MEDS: VITAMIN B COMPLEX/VIT C CAP PO SCH (10:13)
--- NOTE | 2018-12-21 12:48 | HPE ---
DATE OF VISIT: 12/21/2018 PRIMARY CARE PROVIDER: [facility] HISTORY OF PRESENT ILLNESS: The patient is a 18-year-old female with no significant medical history who was admitted to the inpatient mental health unit for suicidal ideation and depression. During the encounter the patient is complaining about generalized itchiness from tomatoes. The patient stated she has been having rash due to tomatoes. Before admission, the patient went to [facility] and [facility] and the k[facility]up caused her to have increased itchiness. The patient denies any acute complaints. PAST MEDICAL HISTORY: Borderline personality disorder. Depressive disorder. Posttraumatic stress disorder (PTSD). Polycystic ovarian syndrome. PAST SURGICAL HISTORY: Adenoidectomy. Tonsillectomy. Appendectomy. Left oophorectomy. SOCIAL HISTORY: Denies smoking. Denies alcohol use. Denies recreational drug use. REVIEW OF SYSTEMS: GENERAL: Denies any fevers, chills. HEENT: No vision changes. No auditory changes. CARDIOVASCULAR: No chest pain. No palpitations. RESPIRATORY: No shortness of breath. No cough. No shortness of breath. No cough. No sputum production. GASTROINTESTINAL (GI): No nausea. No vomiting. No abdominal pain. MUSCULOSKELETAL: Patient has complaint of right ankle pain previously, has improved significantly. Patient can ambulate without any discomfort. OBJECTIVE: VITAL SIGNS: Temperature 97.3, pulse is 73, respirations 18, blood pressure 121/58, pulse oximetry 100% in room air. GENERAL: Morbidly obese. No signs of acute distress. The patient is alert and awake. HEENT: Normocephalic, atraumatic. Extraocular motors grossly intact. CARDIOVASCULAR: Positive S1 and S2, regular rate. LUNGS: Clear to auscultation bilaterally. ABDOMEN: Soft, nontender. Bowel sounds present. EXTREMITIES: No edema. No cyanosis. NEUROLOGICAL: Sensation to fine touch grossly intact. Muscle strength 5/5. LABORATORY DATA: WBC 6, hemoglobin 11.4, hematocrit 37.2, platelet count is 167. Sodium is 145, potassium 4, chloride 112, carbon dioxide 24, BUN 9, creatinine 0.74. Total cholesterol is 101, calcium is 8.4, total bilirubin is 0.2, direct bilirubin less than 0.1, AST 33, ALT 32, alkaline phosphatase 84, total protein is 6.5, albumin 3.5, TSH is 1.45. HCG is negative. Urine toxicology is negative. Alcohol level is negative. ASSESSMENT/PLAN: 1. Psychiatric disorder. The patient has a diagnosis of borderline personality disorder, depressive disorder. Patient has a history of suicidal ideation. The patient is currently being treated in [facility], refer the psychiatric management per psychiatrist. 2. Deep vein thrombosis (DVT) prophylaxis. Encouraged ambulation. The medicine team will sign off at this time. Please contact the medicine team if the patient requires further assistance. FRANCISCO
[2018-12-21] MEDS: VENLAFAXINE 37.5 MG TAB PO SCH (13:34)
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
[2018-12-21 18:00] VITALS: BP 120/58
[2018-12-21] MEDS: LURASIDONE 20 MG TAB (LATUDA) PO SCH (18:31)
[2018-12-21] MEDS: diphenhydrAMINE 50 MG CAP PO SCH (21:03)
[2018-12-21] MEDS: PRAZOSIN 1 MG CAP PO SCH (21:03)
[2018-12-22 06:45] VITALS: BP 97/52
[2018-12-22] MEDS: VITAMIN B COMPLEX/VIT C CAP PO SCH (08:42)
[2018-12-22] MEDS: VENLAFAXINE 37.5 MG TAB PO SCH (08:42)
[2018-12-22] MEDS: hydrOXYzine 50 MG TAB PO PRN (13:37)
--- NOTE | 2018-12-22 17:42 | MHIPNPDOC ---
[facility] Progress Note Progress Note DATE OF SERVICE: 12/22/18 CHIEF COMPLAINT: Pt called 911 initially for allergic reaction, told EMS staff that she "didnt want to be around anymore", upon arrival to ED pt continued to express SI. HISTORY OF PRESENT ILLNESS: Pt well known from prior ED contacts and psych admissions, came to ED tonight c/o allergic reaction after biting into a tomato. Pt expressed SI to EMS staff and ED staff as well. Pt with hx of Bipolar d/o and Borderline PD, has numerous admissions to [facility] and other [facility]. Pt denies HI/AH/VH, denies any substance abuse, has not been compliant with outpt tx at [facility], states "I can't get back in there until the end of the month". Pt states she is "stressed" about "everything", whe asked about plan for suicide reports she would "do anything I need to do", reports hx of prior overdose. Pt continues to voice SI in ED, cannot CFS". VITAL SIGNS: See below. NEW TEST RESULTS: See below CURRENT MEDICATIONS: See below. Mental Status Examination General Appearance: unkempt, disheveled, very poor hygiene Build: overweight Demeanor: very fidgety Eye Contact: average Activity: average Behavior: cooperative, sleepy (she recently received Benadryl, since she complained of itching due to allergic reaction. she also received Ativan) Speech: clear, spontaneous, reg/rate,rhythm,volume Mood: depressed, anxious Affect: inappropriate (smiles at times), not congruent with mood Thought Content (Other): guarded Thought Content (Aggressive): none reported Perception (Hallucinations): none reported Perception (Other): none reported Cognition (Impairment of): none reported Cognition(Intelligence Est.): borderline Oriented: Awake, Alert, Oriented times three Insight: poor Judgment: Poor Psychosis: none reported Diagnoses 1. Unspecified depressive disorder 2. Borderline Personality disorder 3. R/O malingering 4. Tobacco use disorder ASSESSMENT: The mental status examination has not changed since yesterday.The patient was seen in her room. she says she still feels tired because she took too much Benadryl 48 hours ago, due to an allergic reaction. She doesn't seem to be depressed, she still reports SI without a plan. she says that "I'm a mess today, I'm up and down because I've been calling my ex boyfriend to ask him to bring my clothes". spoke with her about why it's not a good idea to contact her ex boyfriend at this time. will increase Effexor to 75 mgs po daily MANAGEMENT PLAN: Increase Effexor to 75 mgs po daily TIME SPENT: 15 minutes. Vital Signs Vital Signs Date Time Temp Pulse Resp B/P (MAP) Pulse Ox O2 Delivery O2 Flow Rate FiO2 12/22/18 06:45 99.2 85 16 97/52 (67) 12/21/18 02:25 100 12/20/18 23:20 Room Air Current Medications Current Medications Acetaminophen (Tylenol Tab) 650 mg Q6HP PRN PO HEADACHE or DISCOMFORT; Start 12/21/18 at 02:00 Al Hydrox/Mg Hydrox/Simethicone (Mylanta) 30 ml Q4HP PRN PO HEARTBURN/INDIGESTION; Start 12/21/18 at 02:00 Diphenhydramine HCl (Benadryl) 50 mg QHS PO Last administered on 12/21/18at 21:03; Start 12/21/18 at 21:00 Diphenhydramine HCl (Benadryl) 50 mg STAT STAT PO Last administered on 12/21/18at 10:12; Start 12/21/18 at 09:56; Stop 12/21/18 at 09:57; Status DC Fluticasone Propionate (Flonase 0.05% Nasal [place]) 2 spray DAILY PRN NA NASAL CONGESTION; Start 12/21/18 at 03:15 Home Med (Med Rec Complete!) ASDIRECTED XX ; Start 12/21/18 at 03:30; Stop 12/21/18 at 03:30; Status DC Hydroxyzine HCl (Atarax) 50 mg Q6HP PRN PO ANXIETY/AGITATION Last administered on 12/22/18at 13:37; Start 12/22/18 at 11:45 Lorazepam (Ativan) 1 mg STAT STAT PO Last administered on 12/21/18at 10:12; Start 12/21/18 at 09:57; Stop 12/21/18 at 09:58; Status DC Lurasidone HCl (Latuda) 60 mg DAILY@1800 PO Last administered on 12/21/18at 18:31; Start 12/21/18 at 18:00 Magnesium Hydroxide (Milk Of Magnesia) 30 ml DAILYPRN PRN PO CONSTIPATION; Start 12/21/18 at 02:00 Meloxicam (Mobic) 7.5 mg BID PRN PO PAIN; Start 12/21/18 at 03:15 Prazosin HCl (Minipress) 1 mg QHS PO Last administered on 12/21/18at 21:03; Start 12/21/18 at 21:00 Sumatriptan Succinate (Imitrex) 25 mg DAILY PRN PO MIGRAINE; Start 12/21/18 at 03:15 Trazodone HCl (Desyrel) 50 mg QHSP PRN PO INSOMNIA; Start 12/21/18 at 02:00; Stop 12/21/18 at 02:13; Status DC Trazodone HCl (Desyrel) 150 mg QHSP PRN PO INSOMNIA; Start 12/21/18 at 02:15 Venlafaxine HCl (Effexor) 37.5 mg DAILY PO Last administered on 12/22/18at 08:42; Start 12/21/18 at 09:00 Vitamin B Complex/ Vitamin C (Therapeutic B Complex w/C) 1 cap DAILY PO Last administered on 12/22/18at 08:42; Start 12/21/18 at 09:00 Allergies Coded Allergies: RUBBER (Verified Allergy, Intermediate, 12/20/18) Mushroom (Verified Allergy, Unknown, 12/20/18) Penicillins (Verified Allergy, Unknown, 12/20/18) Sulfa (Sulfonamide Antibiotics) (Verified Allergy, Unknown, 12/20/18) TURKEY (Verified Allergy, Unknown, 12/20/18) emtricitabine (Verified Allergy, Unknown, 12/20/18) latex (Verified Allergy, Unknown, 12/20/18) raltegravir (Verified Allergy, Unknown, 12/20/18) sulfamethoxazole (Verified Allergy, Unknown, 12/20/18) tenofovir (Verified Allergy, Unknown, 12/20/18) tomato (Verified Allergy, Unknown, 12/20/18) trimethoprim (Verified Allergy, Unknown, 12/20/18) LAILA WHITEHEAD MD December 22, 2018 17:33
[2018-12-22] MEDS: LURASIDONE 20 MG TAB (LATUDA) PO SCH (17:57)
[2018-12-22 18:00] VITALS: BP 122/74
[2018-12-22] MEDS: diphenhydrAMINE 50 MG CAP PO SCH (21:44)
[2018-12-22] MEDS: PRAZOSIN 1 MG CAP PO SCH (21:44)
[2018-12-23 06:42] VITALS: BP 138/63
--- NOTE | 2018-12-23 08:32 | MHIPNPDOC ---
[facility] Progress Note Progress Note DATE OF SERVICE: 12/23/18 CHIEF COMPLAINT: Pt called 911 initially for allergic reaction, told EMS staff that she "didnt want to be around anymore", upon arrival to ED pt continued to express SI. HISTORY OF PRESENT ILLNESS: Per Dr. Lynn: "Pt well known from prior ED contacts and psych admissions, came to ED tonight c/o allergic reaction after biting into a tomato. Pt expressed SI to EMS staff and ED staff as well. Pt with hx of Bipolar d/o and Borderline PD, has numerous admissions to [facility] and other [facility]. Pt denies HI/AH/VH, denies any substance abuse, has not been compliant with outpt tx at [facility], states "I can't get back in there until the end of the month". Pt states she is "stressed" about "everything", whe asked about plan for suicide reports she would "do anything I need to do", reports hx of prior overdose. Pt continues to voice SI in ED, cannot CFS"." VITAL SIGNS: See below. NEW TEST RESULTS: See below CURRENT MEDICATIONS: See below. Mental Status Examination General Appearance: unkempt, disheveled, very poor hygiene Build: overweight Demeanor: agitated Eye Contact: average Activity: agitated Behavior: uncooperative, yelling and cursing at staff in the milieu Speech: clear, spontaneous, reg/rate,rhythm, yelling Mood: "you're all going to loose your jobs" Affect: inappropriate agitated Thought Content (Other): guarded Thought Content (Aggressive): none reported Perception (Hallucinations): none reported Perception (Other): none reported Cognition (Impairment of): none reported Cognition(Intelligence Est.): borderline Oriented: Awake, Alert, Oriented times three Insight: poor Judgment: Poor Psychosis: none reported Diagnoses 1. Unspecified depressive disorder 2. Borderline Personality disorder 3. R/O malingering 4. Tobacco use disorder ASSESSMENT: P uncooperative, yelling and cursing at staff about how she's been here for 72hrs and should be able to leave and that everyone is going to loose their jobs b/c of it. MANAGEMENT PLAN: continue Dr. Lynn's plan. TIME SPENT: 15 minutes. Vital Signs Vital Signs Date Time Temp Pulse Resp B/P (MAP) Pulse Ox O2 Delivery O2 Flow Rate FiO2 12/23/18 06:42 98.8 70 14 138/63 (88) 12/21/18 02:25 100 12/20/18 23:20 Room Air Current Medications Current Medications Acetaminophen (Tylenol Tab) 650 mg Q6HP PRN PO HEADACHE or DISCOMFORT; Start 12/21/18 at 02:00 Al Hydrox/Mg Hydrox/Simethicone (Mylanta) 30 ml Q4HP PRN PO HEARTBURN/INDIGESTION; Start 12/21/18 at 02:00 Diphenhydramine HCl (Benadryl) 50 mg QHS PO Last administered on 12/22/18at 21:44; Start 12/21/18 at 21:00 Diphenhydramine HCl (Benadryl) 50 mg STAT STAT PO Last administered on 12/21/18at 10:12; Start 12/21/18 at 09:56; Stop 12/21/18 at 09:57; Status DC Fluticasone Propionate (Flonase 0.05% Nasal [place]) 2 spray DAILY PRN NA NASAL CONGESTION; Start 12/21/18 at 03:15 Home Med (Med Rec Complete!) ASDIRECTED XX ; Start 12/21/18 at 03:30; Stop 12/21/18 at 03:30; Status DC Hydroxyzine HCl (Atarax) 50 mg Q6HP PRN PO ANXIETY/AGITATION Last administered on 12/22/18at 13:37; Start 12/22/18 at 11:45 Lorazepam (Ativan) 1 mg STAT STAT PO Last administered on 12/21/18at 10:12; Start 12/21/18 at 09:57; Stop 12/21/18 at 09:58; Status DC Lurasidone HCl (Latuda) 60 mg DAILY@1800 PO Last administered on 12/22/18at 17:57; Start 12/21/18 at 18:00 Magnesium Hydroxide (Milk Of Magnesia) 30 ml DAILYPRN PRN PO CONSTIPATION; Start 12/21/18 at 02:00 Meloxicam (Mobic) 7.5 mg BID PRN PO PAIN; Start 12/21/18 at 03:15 Prazosin HCl (Minipress) 1 mg QHS PO Last administered on 12/22/18at 21:44; Start 12/21/18 at 21:00 Sumatriptan Succinate (Imitrex) 25 mg DAILY PRN PO MIGRAINE; Start 12/21/18 at 03:15 Trazodone HCl (Desyrel) 50 mg QHSP PRN PO INSOMNIA; Start 12/21/18 at 02:00; Stop 12/21/18 at 02:13; Status DC Trazodone HCl (Desyrel) 150 mg QHSP PRN PO INSOMNIA; Start 12/21/18 at 02:15 Venlafaxine HCl (Effexor) 37.5 mg DAILY PO Last administered on 12/22/18at 08:42; Start 12/21/18 at 09:00; Stop 12/22/18 at 17:41; Status DC Venlafaxine HCl (Effexor) 75 mg DAILY PO ; Start 12/23/18 at 09:00 Vitamin B Complex/ Vitamin C (Therapeutic B Complex w/C) 1 cap DAILY PO Last administered on 12/22/18at 08:42; Start 12/21/18 at 09:00 Allergies Coded Allergies: RUBBER (Verified Allergy, Intermediate, 12/20/18) Mushroom (Verified Allergy, Unknown, 12/20/18) Penicillins (Verified Allergy, Unknown, 12/20/18) Sulfa (Sulfonamide Antibiotics) (Verified Allergy, Unknown, 12/20/18) TURKEY (Verified Allergy, Unknown, 12/20/18) emtricitabine (Verified Allergy, Unknown, 12/20/18) latex (Verified Allergy, Unknown, 12/20/18) raltegravir (Verified Allergy, Unknown, 12/20/18) sulfamethoxazole (Verified Allergy, Unknown, 12/20/18) tenofovir (Verified Allergy, Unknown, 12/20/18) tomato (Verified Allergy, Unknown, 12/20/18) trimethoprim (Verified Allergy, Unknown, 12/20/18) A-FIB/CHADSVASC A-FIB History Current/History of A-Fib/PAF?: No Current Oral Anticoagulant The: No Treatment Treatment ordered: NONE Reason Anticoagulant not given: Not indicated/[id number] MARY CHAMBERS DO December 23, 2018 8:32 am
[2018-12-23] MEDS: VITAMIN B COMPLEX/VIT C CAP PO SCH (08:46)
[2018-12-23] MEDS: VENLAFAXINE 37.5 MG TAB PO SCH (08:46)
[2018-12-23] MEDS: hydrOXYzine 50 MG TAB PO PRN (17:39)
[2018-12-23] MEDS: LURASIDONE 20 MG TAB (LATUDA) PO SCH (17:56)
[2018-12-23 18:17] VITALS: BP 139/76
[2018-12-23] MEDS: diphenhydrAMINE 50 MG CAP PO SCH (21:39)
[2018-12-23] MEDS: PRAZOSIN 1 MG CAP PO SCH (21:39)
[2018-12-24 06:34] VITALS: BP 109/57
[2018-12-24] MEDS: VITAMIN B COMPLEX/VIT C CAP PO SCH (08:45)
[2018-12-24] MEDS: VENLAFAXINE 37.5 MG TAB PO SCH (08:45)
[2018-12-24] MEDS: hydrOXYzine 50 MG TAB PO PRN (08:45)
[2018-12-24 17:32] VITALS: BP 154/74
[2018-12-24] MEDS: LURASIDONE 20 MG TAB (LATUDA) PO SCH (18:07)
[2018-12-24] MEDS: diphenhydrAMINE 50 MG CAP PO SCH (20:21)
[2018-12-24 20:22] VITALS: BP 123/71
[2018-12-24] MEDS: PRAZOSIN 1 MG CAP PO SCH (20:22)
[2018-12-25 06:25] VITALS: BP 124/60
[2018-12-25] MEDS: VENLAFAXINE 37.5 MG TAB PO SCH (09:02)
[2018-12-25] MEDS: VITAMIN B COMPLEX/VIT C CAP PO SCH (09:02)
[2018-12-25] MEDS ORDERED: TRAZO50TA PO (11:51)
[2018-12-25] MEDS ORDERED: VENL37TA PO (11:51)
[2018-12-26] MEDS ORDERED: ZOFR4TAB16 PO (23:14)
== END 2018-12-25 12:15 | disposition home or self-care (01) | DRG 754 ==
LOC: EDBD 22:49 → M ED 22:49 → M ED INP 12-21 01:59 → M PSY 12-21 02:52
PROVIDERS: ADMIT Psychiatry & Neurology Psychiatry; ATTEND Psychiatry & Neurology Psychiatry
DX: F32.9 Major depressive disorder, single episode, unspecified (principal); E28.2 Polycystic ovarian syndrome; F60.3 Borderline personality disorder; F17.200 Nicotine dependence, unspecified, uncomplicated; F43.10 Post-traumatic stress disorder, unspecified; Z79.899 Other long term (current) drug therapy; Z88.0 Allergy status to penicillin; Z88.2 Allergy status to sulfonamides; Z88.8 Allergy status to other drugs, medicaments and biological substances; Z91.018 Allergy to other foods; Z91.040 Latex allergy status

== ENCOUNTER 2018-12-26 21:11 | Emergency (ER) | payer MEDICAID ==
[~2018-12-26] VITALS: Ht 154.9 cm; Wt 80.0 kg
[~2018-12-26 21:11] MED LIST changes: +DICY1CAP8 PO; +FLON1SPR; +GABA-1171 PO; +MOBI4TAB PO; +VENL37TA PO; +VITATAB73 PO
[2018-12-26] MEDS ORDERED: ONDANSETRON 4 MG ORAL DISINTEGRATING TAB (Q0162 PER 1MG) PO ONE (21:45)
[2018-12-26 22:10] LABS: BASO % 0.3 % (0.0-1.0); EOS # 0.4 10^3/uL (0.0-0.50); EOS % 5.2 % (0.0-3.0); HEMOGLOBIN 11.6 g/dl (12.0-15.5); LYMPH # 2.3 10^3/uL (1.5-6.5); LYMPH % 31.5 % (24.0-44.0); MEAN CORPUSCULAR HEMOGLOBIN 25.6 pg (27.0-33.0); MEAN CORPUSCULAR HGB CONC 30.5 g/dl (32.0-36.5); MEAN CORPUSCULAR VOLUME 83.7 fl (80.0-96.0); MONO # 0.7 10^3/uL (0.0-0.8); MONO % 9.1 % (0.0-5.0); NEUTROPHILS # 3.9 10^3/uL (1.8-7.7); NEUTROPHILS % 53.6 % (36.0-66.0); PLATELET COUNT, AUTOMATED 184 10^3/uL (150-450); RED BLOOD COUNT 4.54 10^6/uL (4.00-5.40); WHITE BLOOD COUNT 7.2 10^3/uL (4.0-10.0)
[2018-12-26] MEDS ORDERED: ZOFR4TAB16 PO (23:14)
[2018-12-26 23:22] VITALS: BP 120/57
[2018-12-26 23:42] LABS: ALBUMIN 3.8 GM/DL (3.2-5.2); ALT/SGPT 37 U/L (12-78); BILIRUBIN,DIRECT < 0.1 MG/DL (0.0-0.2); BILIRUBIN,TOTAL 0.2 MG/DL (0.2-1.0); LIPASE 120 U/L (73-393); TOTAL PROTEIN 6.6 GM/DL (6.4-8.2)
--- NOTE | 2018-12-27 07:28 | REP ---
Acute abdominal series four views including PA chest, two supine views of the abdomen and single upright view of the abdomen: Comparison is 08/19/2017. PA chest: There is a focal density inferomedially in the right lung, similar to the prior study. This could merely represent superimposition artifact, however a lung nodule is not entirely discounted. Follow-up CT might be considered for more assurance. Lung crespo otherwise clear. Cardiac size is normal. The sushma, mediastinum, and skeletal structures are unremarkable per There is no free subdiaphragmatic air. Impression: There is a focal density inferomedially in the right lung as described. Consider follow-up CT for further evaluation. Abdomen, supine upright views: The bowel gas pattern is normal. There are multiple pelvic calcifications, unchanged, likely phleboliths. The skeletal structures and soft tissues are otherwise unremarkable. Impression: Normal bowel gas pattern. Electronically Signed by Tapan Faye MD 12/27/2018 07:20 A
[2019-01-03] MEDS ORDERED: HALO5TA PO (22:53)
[2019-01-03] MEDS ORDERED: MUCI600T31 PO (22:53)
[2019-01-03] MEDS ORDERED: CLAR10CA3 PO (22:53)
[2019-01-03] MEDS ORDERED: PRED20TA PO (22:55)
== END 2018-12-26 23:36 | disposition home or self-care (01) ==
LOC: M ED 21:11 → EDBD 21:11 → M ED 23:36
DX: R11.2 Nausea with vomiting, unspecified (principal); I10 Essential (primary) hypertension; Z79.899 Other long term (current) drug therapy; Z79.3 Long term (current) use of hormonal contraceptives; Z88.0 Allergy status to penicillin; Z88.1 Allergy status to other antibiotic agents; Z88.2 Allergy status to sulfonamides; Z88.8 Allergy status to other drugs, medicaments and biological substances; Z91.018 Allergy to other foods; Z91.040 Latex allergy status
CPT/HCPCS: 36415; 74021; 80076; 81001; 83690; 85025; 99284; Q0162

== ENCOUNTER 2018-12-29 20:30 | Inpatient (IN) | payer MEDICAID ==
[~2018-12-29] VITALS: Ht 167.6 cm; Wt 144.9 kg
[~2018-12-29 20:30] MED LIST changes: +ZOFR4TAB16 PO
[2018-12-29 21:58] LABS: HEMATOCRIT 39.1 % (36.0-47.0); HEMOGLOBIN 11.9 g/dl (12.0-15.5); MEAN CORPUSCULAR HEMOGLOBIN 26.4 pg (27.0-33.0); MEAN CORPUSCULAR HGB CONC 30.4 g/dl (32.0-36.5); MEAN CORPUSCULAR VOLUME 86.7 fl (80.0-96.0); PLATELET COUNT, AUTOMATED 182 10^3/uL (150-450); RED BLOOD COUNT 4.51 10^6/uL (4.00-5.40); WHITE BLOOD COUNT 6.4 10^3/uL (4.0-10.0)
[2018-12-29] MEDS ORDERED: MAALOX 30 ML SUSP *UDC PO PRN (22:00)
[2018-12-29] MEDS ORDERED: MOM 30ML SUSPENSION UDC PO PRN (22:00)
[2018-12-29] MEDS ORDERED: traZODone 50 MG TAB PO PRN (22:00)
[2018-12-29 22:22] LABS: AMPHETAMINES LEVEL URINE NEGATIVE (NEGATIVE); BARBITURATES URINE NEGATIVE (NEGATIVE); BENZODIAZEPINES URINE NEGATIVE (NEGATIVE); CANNABINOIDS URINE NEGATIVE (NEGATIVE); COCAINE METABOLITE URINE NEGATIVE (NEGATIVE); METHADONE URINE NEGATIVE (NEGATIVE); OPIATES URINE NEGATIVE (NEGATIVE); PHENCYCLIDINE URINE NEGATIVE (NEGATIVE)
[2018-12-29 22:28] LABS: HCG, SERUM QUALITATIVE NEGATIVE (NEGATIVE)
[2018-12-29 22:29] LABS: ACETAMINOPHEN LEVEL < 2.0 UG/ML (10.0-30.0); ALBUMIN 3.9 GM/DL (3.2-5.2); ALT/SGPT 37 U/L (12-78); BILIRUBIN,DIRECT < 0.1 MG/DL (0.0-0.2); BILIRUBIN,TOTAL 0.2 MG/DL (0.2-1.0); BLOOD UREA NITROGEN 11 MG/DL (7-18); CALCIUM LEVEL 8.8 MG/DL (8.5-10.1); CARBON DIOXIDE LEVEL 26 MEQ/L (21-32); CHLORIDE LEVEL 110 MEQ/L (98-107); CREATININE FOR GFR 0.75 MG/DL (0.55-1.30); ETHYL ALCOHOL (ETHANOL) < 0.003 % (0.000-0.010); GLUCOSE, FASTING 117 MG/DL (70-100); POTASSIUM SERUM 3.8 MEQ/L (3.5-5.1); SALICYLATE LEVEL < 1.7 MG/DL (5.0-30.0); SODIUM LEVEL 142 MEQ/L (136-145); TOTAL PROTEIN 6.7 GM/DL (6.4-8.2)
[2018-12-29] MEDS ORDERED: TRAZ150T90 PO (23:25)
[2018-12-29] MEDS ORDERED: VENL37TA PO (23:25)
[2018-12-29] MEDS ORDERED: ZOFR4TAB16 PO (23:27)
[2018-12-29] MEDS ORDERED: PATIENT COMMENTS (23:28)
[2018-12-29 23:30] VITALS: BP 130/86
[2018-12-30] MEDS: ACETAMINOPHEN TAB 650MG DOSE (2X325MG) PO PRN ×2 (00:57→18:51)
[2018-12-30] MEDS ORDERED: traZODone 100 MG TAB PO ONE (01:30)
[2018-12-30] MEDS ORDERED: diphenhydrAMINE 50 MG CAP PO ONE (01:30)
[2018-12-30 06:44] VITALS: BP 105/52
--- NOTE | 2018-12-30 08:54 | REP ---
Cough. COMPARISON: Multiple, largest two view exam 12/10/2018. There is a slight haziness throughout the pulmonary vascularity with a subtle increase in the interstitial markings throughout the lung crespo with bilateral perihilar peribronchial cuffing. When compared to the latest prior, this does not appear to be significantly changed. No acute patchy parenchymal opacities or pleural effusions have developed. There is no change in the appearance of the cardiomediastinal silhouette. IMPRESSION: Mild edema versus asthma. Correlate clinically. Electronically Signed by Zay Cochran DO 12/30/2018 10:27 A
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
--- NOTE | 2018-12-30 14:50 | HPEPDOC ---
General Date of Admission December 29, 2018 at 21:46 Chief Complaint The patient is a 18-year-old female admitted with a reason for visit of Unspeci fied Depressive Disorder. History of Present Illness Patient is a 18-year-old female, past medical history significant for obesity, hyperlipidemia, admitted on account of depression and suicidal ideation. On evaluation, patient complains of frequent cough with phlegm production. Chest x-ray completed on admission for complaints of cough showed mild edema versus asthma. Patient complains of postnasal drainage and congestion and also some ear pain. She was unable to sleep last night due to frequent cough. She reports also nausea with prolonged coughing. Otherwise, denies chills, fever, chest pain, shortness of breath. Home Medications Scheduled Diphenhydramine HCl (Diphenhydramine HCl) 50 Mg Cap, 50 MG PO BID for , ( Reported) Etonogestrel (Nexplanon) 68 Mg Imp, 68 MG SC ASDIRECTED for , (Reported) DECEMBER 2016 Gabapentin (Gabapentin) 100 Mg Capsule, 100 MG PO TID, (Reported) Lurasidone Hydrochloride (Latuda) 20 Mg Tablet, 60 MG PO QPM for , (Reported) 1800 Prazosin Hcl (Prazosin HCl) 1 Mg Capsule, 1 MG PO QHS for , (Reported) Venlafaxine HCl (Venlafaxine HCl) 37.5 Mg Tablet, 75 MG PO DAILY, (Reported) HAS NOT STARTED TAKING THIS MED Vitamin B Complex (Vitamin B Complex) 1 Each Tablet, 1 TAB PO DAILY for , (Reported) Scheduled PRN Dicyclomine HCl (Dicyclomine HCl) 10 Mg Capsule, 10 MG PO TID PRN for IBS, (Reported) Fluticasone Propionate (Flonase Allergy Relief) 9.9 Ml Waldron.susp, 2 SPRAYS NA DAILY PRN for NASAL CONGESTION, (Reported) Meloxicam (Mobic) 7.5 Mg Tablet, 7.5 MG PO BID PRN for PAIN, (Reported) WITH FOOD Ondansetron HCl (Zofran) 4 Mg Tablet, 4 MG PO Q6H PRN for NAUSEA, (Reported) Sumatriptan Succinate (Sumatriptan Succinate) 25 Mg Tablet, 25 MG PO DAILY PRN for MIGRAINE, (Reported) Trazodone HCl (Trazodone HCl) 150 Mg Tablet, 150 MG PO QHS PRN for INSOMNIA, (Reported) Miscellaneous Medications [Patient Comments] , (Reported) PATIENT STATES SHE HAS NOT TAKEN ANY MEDICATIONS FOR 3 WEEKS Allergies Coded Allergies: RUBBER (Verified Allergy, Intermediate, 12/20/18) Mushroom (Verified Allergy, Unknown, 12/20/18) Penicillins (Verified Allergy, Unknown, 12/20/18) Sulfa (Sulfonamide Antibiotics) (Verified Allergy, Unknown, 12/20/18) TURKEY (Verified Allergy, Unknown, 12/20/18) emtricitabine (Verified Allergy, Unknown, 12/20/18) latex (Verified Allergy, Unknown, 12/20/18) raltegravir (Verified Allergy, Unknown, 12/20/18) sulfamethoxazole (Verified Allergy, Unknown, 12/20/18) tenofovir (Verified Allergy, Unknown, 12/20/18) tomato (Verified Allergy, Unknown, 12/20/18) trimethoprim (Verified Allergy, Unknown, 12/20/18) Past Medical History Medical History Hyperlipidemia Morbid obesity Ovarian cyst Surgical History Oophorectomy Family History Father: Hyperlipidemia, hypertension, obstructive sleep apnea, COPD Social History Positive for tobacco use, denies alcohol use, polysubstance abuse with THC A-FIB/CHADSVASC A-FIB History Current/History of A-Fib/PAF?: No Current Oral Anticoagulant The: No Review of Systems Other systems A 10 point pertinent ROS was completed, negative except as stated in the history of presentingh illness Physical Examination Other physical findings GENERAL: obese female in NAD SKIN : Warm, dry intact HEENT: Atraumatic, normocephalic, no erythema or tenderness with auditory canal examination, moist mucous membrane CARDIOVASCULAR: Regular rate and rhythm, S1S2, no JVD, no edema, distal pulses + and palpable RESP: CTAB, no accessory muscle use noted ABDOMEN: BS+ non distended non tender MS: no joint deformities NEURO: Alert and oriented x 3, CN2-12 grossly intact PSYCH: no anxiety or agitation, appropriate mood and affect. Vital Signs Vital Signs Date Time Temp Pulse Resp B/P (MAP) Pulse Ox O2 Delivery O2 Flow Rate FiO2 12/30/18 06:44 97.5 59 16 105/52 (69) 12/29/18 23:30 99 12/29/18 20:57 Room Air Laboratory Data Labs 24H Laboratory Tests 2 12/29/18 21:07: Nucleated Red Blood Cells % (auto) 0.0, Anion Gap 6L, Calcium Level 8.8, Aspartate Amino Transf (AST/SGOT) 22, Alanine Aminotransferase (ALT/SGPT) 37, Alkaline Phosphatase 92, Total Bilirubin 0.2, Direct Bilirubin < 0.1, Total Protein 6.7, Albumin 3.9, Albumin/Globulin Ratio 1.39, Thyroid Stimulating Hormone (TSH) 1.260, Human Chorionic Gonadotropin, Qual NEGATIVE, Salicylates Level < 1.7L, Urine Amphetamines Screen NEGATIVE, Urine Benzodiazepines Screen NEGATIVE, Urine Opiates Screen NEGATIVE, Urine Methadone Screen NEGATIVE, Acetaminophen Level < 2.0L, Urine Barbiturates Screen NEGATIVE, Urine Phencyclidine Screen NEGATIVE, Urine Cocaine Metabolite Screen NEGATIVE, Urine Cannabinoids Screen NEGATIVE, Ethyl Alcohol Level < 0.003 CBC/BMP Laboratory Tests 12/29/18 21:07 Red Blood Count 4.51, Mean Corpuscular Volume 86.7, Mean Corpuscular Hemoglobin 26.4 L, Mean Corpuscular Hemoglobin Concent 30.4 L, Red Cell Distribution Width 15.1 H Assessment/Plan Acute bronchitis -with seasonal allergies noted -Start patient on low-dose steroid therapy Morbid obesity -therapeutic lifestyle changes with caloric controlled diet Depression and suicide ideation -treatment and management by primary team Pseudoseizures -has not had any pseudoseizures this hospitalization Schizoaffective disorder -evaluation and management by primary team DVT Prophylaxis -patient is ambulatory frequently, no indication for DVT prophylaxis at this time Disposition to be determined by primary team Plan / VTE VTE Prophylaxis Ordered?: No VTE Exclusion Mechanical Proph: Low Risk for VTE MARY LOU VICENTE December 30, 2018 14:50
[2018-12-30] MEDS: LORATADINE 10 MG TAB PO SCH (15:28)
[2018-12-30] MEDS: predniSONE 20 MG TAB PO SCH (15:28)
[2018-12-30 18:35] VITALS: BP 127/70
[2018-12-30] MEDS: hydrOXYzine 50 MG TAB PO PRN (18:50)
[2018-12-30] MEDS: guaiFENesin ER 600 MG TAB PO SCH (20:39)
[2018-12-30] MEDS: traZODone 50 MG TAB PO SCH (20:39)
[2018-12-30] MEDS: diphenhydrAMINE 50 MG CAP PO SCH (20:39)
[2018-12-30] MEDS: IBUPROFEN 400 MG TAB PO PRN (20:44)
[2018-12-31 06:51] VITALS: BP 104/52
[2018-12-31] MEDS: guaiFENesin ER 600 MG TAB PO SCH ×2 (08:18→20:10)
[2018-12-31] MEDS: diphenhydrAMINE 50 MG CAP PO SCH ×2 (08:18→20:11)
[2018-12-31] MEDS: predniSONE 20 MG TAB PO SCH (08:18)
[2018-12-31] MEDS: LORATADINE 10 MG TAB PO SCH (08:19)
[2018-12-31] MEDS: IBUPROFEN 400 MG TAB PO PRN ×2 (08:19→20:12)
[2018-12-31] MEDS: hydrOXYzine 50 MG TAB PO PRN (16:27)
--- NOTE | 2018-12-31 16:37 | MHIPNPDOC ---
[facility] Progress Note Progress Note DATE OF SERVICE: 12/31/18 HISTORY: 18-year-old with numerous admissions characterized by mood lability, explosiveness, confabulation, and suicidal thoughts VITAL SIGNS: See below. NEW TEST RESULTS:. . CURRENT MEDICATIONS: See below. MENTAL STATUS EXAMINATION: Patient is a 18-year old female, who is once again admitted following almost 20 admissions. She is demanding discharge stating that the air and here is making it difficult for her and that she doesn't want to be around people. She now claims her boyfriend is going to [place] to be treated for cancer. Speech: Is rapid. Language skills are intact. Thought processes including:. Numerous topics, possible confabulation. Explosive outbursts Thought content:, Explosive outbursts. Abstract reasoning, and computation:, Poor abstract reasoning. Description of associations:, No loose association. Description of abnormal or psychotic thoughts: Abnormal thoughts related to confabulation and dramatic stories that have not been fact checked. Judgment:, Poor. Insight:, Poor. Orientation: Full. Recent and remote memory: Intact but possible confabulation. Attention span and concentration:, Poor. Language:, As above. Fund of knowledge:, Full. Mood:, Labile. Affect:, Explosive. DIAGNOSES: 1. Cyclothymic disorder. 2., Personality disorder. 3., Relationship stressors. ASSESSMENT:. This young lady has had over 20 admissions and is extremely explosive and unpredictable MANAGEMENT PLAN: It might be mike at this time to introduce an antipsychotic to her medication regimen in a young lady who appears to be mood unstable and presenting personality disorder symptoms. TIME SPENT: 30 minutes. Vital Signs Vital Signs Date Time Temp Pulse Resp B/P (MAP) Pulse Ox O2 Delivery O2 Flow Rate FiO2 12/31/18 06:51 98.1 82 18 104/52 (69) 12/29/18 23:30 99 12/29/18 20:57 Room Air Current Medications Current Medications Acetaminophen (Tylenol Tab) 650 mg Q6HP PRN PO HEADACHE or DISCOMFORT Last administered on 12/30/18at 18:51; Start 12/29/18 at 22:00; Stop 12/30/18 at 19:43; Status DC Al Hydrox/Mg Hydrox/Simethicone (Mylanta) 30 ml Q4HP PRN PO HEARTBURN/INDIGES TION; Start 12/29/18 at 22:00 Diphenhydramine HCl (Benadryl) 50 mg BID PO Last administered on 12/31/18 08:18; Start 12/30/18 at 21:00 Guaifenesin (Mucinex Tab Er) 600 mg BID PO Last administered on 12/31/18at 08:18; Start 12/30/18 at 21:00 Home Med (Med Rec Complete!) ASDIRECTED XX ; Start 12/29/18 at 23:30; Stop 12/29/18 at 23:31; Status DC Hydroxyzine HCl (Atarax) 50 mg Q6HP PRN PO ANXIETY/AGITATION Last administered on 12/30/18at 18:50; Start 12/30/18 at 17:15 Ibuprofen (Advil) 400 mg Q6HP PRN PO PAIN Last administered on 12/31/18 08:19; Start 12/30/18 at 19:45 Loratadine (Claritin) 10 mg DAILY PO Last administered on 12/31/18at 08:19; Start 12/30/18 at 09:00 Magnesium Hydroxide (Milk Of Magnesia) 30 ml DAILYPRN PRN PO CONSTIPATION; Start 12/29/18 at 22:00 Prednisone (Deltasone) 40 mg DAILY PO Last administered on 12/31/18at 08:18; Start 12/30/18 at 09:00; Stop 01/04/19 at 08:59 Trazodone HCl (Desyrel) 50 mg QHSP PRN PO INSOMNIA Last administered on 12/30/18at 00:56; Start 12/29/18 at 22:00; Stop 12/30/18 at 09:09; Status DC Trazodone HCl (Desyrel) 150 mg QHS PO Last administered on 12/30/18at 20:39; Start 12/30/18 at 21:00 Allergies Coded Allergies: RUBBER (Verified Allergy, Intermediate, 12/20/18) Mushroom (Verified Allergy, Unknown, 12/20/18) Penicillins (Verified Allergy, Unknown, 12/20/18) Sulfa (Sulfonamide Antibiotics) (Verified Allergy, Unknown, 12/20/18) TURKEY (Verified Allergy, Unknown, 12/20/18) emtricitabine (Verified Allergy, Unknown, 12/20/18) latex (Verified Allergy, Unknown, 12/20/18) raltegravir (Verified Allergy, Unknown, 12/20/18) sulfamethoxazole (Verified Allergy, Unknown, 12/20/18) tenofovir (Verified Allergy, Unknown, 12/20/18) tomato (Verified Allergy, Unknown, 12/20/18) trimethoprim (Verified Allergy, Unknown, 12/20/18) A-FIB/CHADSVASC A-FIB History Current/History of A-Fib/PAF?: No Current Oral Anticoagulant The: No Treatment Treatment ordered: NONE RANDY NUÑEZ MD December 31, 2018 16:37
--- NOTE | 2018-12-31 17:30 | IPNPDOC ---
Subjective Date Seen The patient was seen on 12/31/18. Subjective Chief Complaint/HPI Patient is a 18-year-old female, past medical history significant for obesity, hyperlipidemia, admitted on account of depression and suicidal ideation. On evaluation, patient complains of frequent cough with phlegm production. Chest x-ray completed on admission for complaints of cough showed mild edema versus asthma. Events since last encounter Today patient complained symptoms have not improved at all with therapy. She also reports fever with temp of 105. Staff deny patient ever had such a temp.. Patient also initially states she slept well last night because she was very tired and and modified history to state she did not sleep well. Objective Physical Examination Other physical findings GENERAL: obese in NAD SKIN : Warm, dry intact HEENT: Atraumatic, normocephalic, PERRL, moist mucous membrane CARDIOVASCULAR: Regular rate and rhythm, S1S2, no JVD, no edema, distal pulses + and palpable RESP: CTAB, no accessory muscle use noted ABDOMEN: BS+ non distended non tender MS: no joint deformities NEURO: Alert and oriented x 3, CN2-12 grossly intact PSYCH: no anxiety or agitation, appropriate mood and affect. A-FIB/CHADSVASC A-FIB History Current/History of A-Fib/PAF?: No Current Oral Anticoagulant The: No Assessment /Plan Assessment Acute bronchitis -Continue steroid therapy without taper for 5 days -Continue Claritin for seasonal allergies -although the patient complains of fever or no improvement. Staff state patient is improved, no longer coughing as much and has had no fever Morbid obesity -therapeutic lifestyle changes with caloric controlled diet Depression and suicide ideation -treatment and management by primary team Pseudoseizures -has not had any pseudoseizures this hospitalization Schizoaffective disorder -evaluation and management by primary team DVT Prophylaxis -patient is ambulatory frequently, no indication for DVT prophylaxis at this time Disposition to be determined by primary team Plan/VTE VTE Prophylaxis Ordered?: No VTE Exclusion Mechanical Proph: Low Risk for VTE VS, I&O, 24H, Fishbone Vital Signs/I&O Vital Signs Date Time Temp Pulse Resp B/P (MAP) Pulse Ox O2 Delivery O2 Flow Rate FiO2 12/31/18 06:51 98.1 82 18 104/52 (69) 12/29/18 23:30 99 12/29/18 20:57 Room Air MARY LOU VICENTE December 31, 2018 17:30
[2018-12-31 18:00] VITALS: BP 126/84
[2018-12-31 20:11] VITALS: BP 138/82
[2018-12-31] MEDS: traZODone 50 MG TAB PO SCH (20:11)
[2018-12-31] MEDS: GABAPENTIN 100 MG CAP PO SCH (20:12)
[2018-12-31] MEDS: HALOPERIDOL 5 MG TAB PO SCH (20:12)
[2018-12-31] MEDS: BENZTROPINE 1 MG TAB PO SCH (20:12)
[2018-12-31] MEDS ORDERED: PRAZOSIN 1 MG CAP PO SCH (21:00)
[2019-01-01 06:52] VITALS: BP 103/51
[2019-01-01] MEDS: diphenhydrAMINE 50 MG CAP PO SCH (08:18)
[2019-01-01] MEDS: HALOPERIDOL 5 MG TAB PO SCH (08:18)
[2019-01-01] MEDS: LORATADINE 10 MG TAB PO SCH (08:18)
[2019-01-01] MEDS: predniSONE 20 MG TAB PO SCH (08:18)
[2019-01-01] MEDS: GABAPENTIN 100 MG CAP PO SCH (08:18)
[2019-01-01] MEDS: BENZTROPINE 1 MG TAB PO SCH (08:18)
[2019-01-01] MEDS: guaiFENesin ER 600 MG TAB PO SCH (08:18)
[2019-01-01] MEDS ORDERED: VENLAFAXINE 37.5 MG TAB PO SCH (09:00)
[2019-01-01] MEDS ORDERED: CLAR10TA7 PO (11:14)
[2019-01-01] MEDS ORDERED: MUCI600T31 PO (11:14)
[2019-01-01] MEDS ORDERED: HALO5TA PO (11:14)
[2019-01-01] MEDS ORDERED: PRED20TA PO (11:18)
--- NOTE | 2019-01-02 15:24 | MHDSPDOC ---
[facility] Discharge Summary Discharge Summary DATE OF ADMISSION: December 29, 2018 at 21:46 DATE OF DISCHARGE: January 01, 2019 at 13:00 DISCHARGE DIAGNOSES: 1. other specified bipolar disorder 2. borderline personality REASON FOR ADMISSION: As per Dr. Baker: "Patient is a 18 -year-old , female, who has numerous previous admissions. She stated she is having "a bunch of stuff going wrong". States my little one , and I found out at 4:30 that my child in a car accident. She also states that her 4-month-old child last year in her arms. Her ex-boyfriend wants to's "start shit and kick my ass"with his new girlfriend. She states her present boyfriend has cancer and she found out last night. She was previously admitted on December 21 and states she has not been taking any of the medications that she was prescribed. She states she doesn't know her medications. She states I probably will have to go to long-term care. She states she was treated at the [facility] by Herminia and Dr. 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 Her medical history is positive for high cholesterol, high blood pressure and ovarian cyst. States her surgical history is positive for tonsils, appendectomy and oophorectomy. Education history is positive for an IEP diploma sheet. She states her legal history is negative neurological history negative alcohol history is negative. Drug history is positive for marijuana. She does not have permanent housing and lives presently with her mother who is in fact her stepmother. She states she is trying presently to get along with her biological father but generally does not relate with her biological parents. She has a history of having 4 children, 2 who as mentioned to her 5 and 7, who she is not allowed to see. She has no active plans for suicide and her past medications included venlafaxine most recently as well as trazodone, prazosin, and Latuda." CONSULTANTS INVOLVED: None TREATMENT AND PROGRESS ON THE UNIT : Patient was seen on Tuesday morning, she was asleep when she was called to team meeting. she was upset because she was awakened and complained because she was going to be late to a doctor's appointment. his is her usual presentation, she comes in saying that she is suicidal and demands to be discharged one or 2 days after being admitted. According to staff, she was irritable, angry, swearing, cursing, being loud at staff during the weekend. she complained of having a stomachache and at one point she said she was the sickest person in this hospital. She ate well and slept well, she was not suicidal, not homicidal, she was not psychotic. She had a good response to medications, she has a h/o medication non compliance, she has said that she usually forgets to take her medications after she has been discharged. HOSPITAL COURSE: ABOVE DISCHARGE ASSESSMENT: The patient was not suicidal, not homicidal and not psych otic, she was jimmy to contract for safety, she was gol orientated. did not report medication side effects. MENTAL STATUS EXAMINATION ON DISCHARGE: Patient is a 18-year old female, who is alert, disheveled, with poor hygiene, dressed in hospital clothes. Speech is loud, normal tone, rate and rhythm. spontaneous and fluent. Language skills are fair. Thought processes including: linear. Thought content: goal orientated, she denies SI, denies HI, denies AV hallucinations, dnies thought delusions. Abstract reasoning, and computation: fair. Description of associations: good. Description of abnormal or psychotic thoughts: she has cognitive distortions, denies HI, denies SI, denies AV hallucinations, denies thought delusions. Judgment: Poor Insight: Poor. Orientation to x 3 Recent and remote memory: fair. Attention span and concentration: fair Language: Hebrew. Fund of knowledge: below average. Mood: euthymic. Affect: labile. MEDICATIONS ON DISCHARGE: Scheduled Diphenhydramine HCl (Diphenhydramine HCl) 50 Mg Cap, 50 MG PO BID for , (Reported) Etonogestrel (Nexplanon) 68 Mg Imp, 68 MG SC ASDIRECTED for , (Reported) DECEMBER 2016 Gabapentin (Gabapentin) 100 Mg Capsule, 100 MG PO TID, (Reported) Guaifenesin (Mucinex) 600 Mg Tab.er.12h, 600 MG PO BID for cough, #14 Haloperidol (Haloperidol) 5 Mg Tablet, 5 MG PO BID for agitation, #14 Loratadine (Claritin) 10 Mg Tablet, 10 MG PO DAILY for seasonal allergies, #7 Prazosin Hcl (Prazosin HCl) 1 Mg Capsule, 1 MG PO QHS for , (Reported) Prednisone (Prednisone) 20 Mg Tablet, 40 MG PO DAILY for acute bronchitis, #6 2 tablets today and 1 daily thereon Venlafaxine HCl (Venlafaxine HCl) 37.5 Mg Tablet, 75 MG PO DAILY, (Reported) HAS NOT STARTED TAKING THIS MED Vitamin B Complex (Vitamin B Complex) 1 Each Tablet, 1 TAB PO DAILY for , (Reported) Scheduled PRN Dicyclomine HCl (Dicyclomine HCl) 10 Mg Capsule, 10 MG PO TID PRN for IBS, (Reported) Fluticasone Propionate (Flonase Allergy Relief) 9.9 Ml [place].susp, 2 SPRAYS NA DAILY PRN for NASAL CONGESTION, (Reported) Meloxicam (Mobic) 7.5 Mg Tablet, 7.5 MG PO BID PRN for PAIN, (Reported) WITH FOOD Ondansetron HCl (Zofran) 4 Mg Tablet, 4 MG PO Q6H PRN for NAUSEA, (Reported) Sumatriptan Succinate (Sumatriptan Succinate) 25 Mg Tablet, 25 MG PO DAILY PRN for MIGRAINE, (Reported) Trazodone HCl (Trazodone HCl) 150 Mg Tablet, 150 MG PO QHS PRN for INSOMNIA, (Reported) PLAN/FOLLOWUP ARRANGEMENTS: Follow Up Care Education Label * Mental Health Appt 1 * [facility] * Established With This Provider Yes * Therapist AARON * Date January 02, 2019 * Time 11:00 * Address of Clinic or Practice [address] [place] [address] * Follow Up Care Education Label * Mental Health Appt 2 * [facility] * Established With This Provider Yes * Therapist MOISES * Date January 09, 2019 * Time 10:00 * Additional information MEDICATION MANAGEMENT Follow Up Care Education Label * Mental Health Appt 3 * [facility] * Established With This Provider Yes * Therapist ALBERT * Date January 09, 2019 * Time 11:00 * Additional information APPT WITH NURSE Follow Up Care Education Label * Medical * Medical Follow Up [facility] * Established With This Provider Yes * Therapist DEVEN OLSON * Date January 11, 2019 * Time 08:40 * Address of Clinic or Practice [address] [place] [address] * The amount of time spent in the coordination of care for this patient was approximately 30 minutes. Vital Signs/I&Os Vital Signs Date Time Temp Pulse Resp B/P (MAP) Pulse Ox O2 Delivery O2 Flow Rate FiO2 01/01/19 06:52 98.9 71 16 103/51 (68) 12/29/18 23:30 99 12/29/18 20:57 Room Air Medications Scheduled Diphenhydramine HCl (Diphenhydramine HCl) 50 Mg Cap, 50 MG PO BID for , (Reported) Etonogestrel (Nexplanon) 68 Mg Imp, 68 MG SC ASDIRECTED for , (Reported) DECEMBER 2016 Gabapentin (Gabapentin) 100 Mg Capsule, 100 MG PO TID, (Reported) Guaifenesin (Mucinex) 600 Mg Tab.er.12h, 600 MG PO BID for cough, #14 Haloperidol (Haloperidol) 5 Mg Tablet, 5 MG PO BID for agitation, #14 Loratadine (Claritin) 10 Mg Tablet, 10 MG PO DAILY for seasonal allergies, #7 Prazosin Hcl (Prazosin HCl) 1 Mg Capsule, 1 MG PO QHS for , (Reported) Prednisone (Prednisone) 20 Mg Tablet, 40 MG PO DAILY for acute bronchitis, #6 2 tablets today and 1 daily thereon Venlafaxine HCl (Venlafaxine HCl) 37.5 Mg Tablet, 75 MG PO DAILY, (Reported) HAS NOT STARTED TAKING THIS MED Vitamin B Complex (Vitamin B Complex) 1 Each Tablet, 1 TAB PO DAILY for , (Reported) Scheduled PRN Dicyclomine HCl (Dicyclomine HCl) 10 Mg Capsule, 10 MG PO TID PRN for IBS, (Reported) Fluticasone Propionate (Flonase Allergy Relief) 9.9 Ml [place].susp, 2 SPRAYS NA DAILY PRN for NASAL CONGESTION, (Reported) Meloxicam (Mobic) 7.5 Mg Tablet, 7.5 MG PO BID PRN for PAIN, (Reported) WITH FOOD Ondansetron HCl (Zofran) 4 Mg Tablet, 4 MG PO Q6H PRN for NAUSEA, (Reported) Sumatriptan Succinate (Sumatriptan Succinate) 25 Mg Tablet, 25 MG PO DAILY PRN for MIGRAINE, (Reported) Trazodone HCl (Trazodone HCl) 150 Mg Tablet, 150 MG PO QHS PRN for INSOMNIA, (Reported) Miscellaneous Medications [Patient Comments] , (Reported) PATIENT STATES SHE HAS NOT TAKEN ANY MEDICATIONS FOR 3 WEEKS Allergies Coded Allergies: RUBBER (Verified Allergy, Intermediate, 12/20/18) Mushroom (Verified Allergy, Unknown, 12/20/18) Penicillins (Verified Allergy, Unknown, 12/20/18) Sulfa (Sulfonamide Antibiotics) (Verified Allergy, Unknown, 12/20/18) TURKEY (Verified Allergy, Unknown, 12/20/18) emtricitabine (Verified Allergy, Unknown, 12/20/18) latex (Verified Allergy, Unknown, 12/20/18) raltegravir (Verified Allergy, Unknown, 12/20/18) sulfamethoxazole (Verified Allergy, Unknown, 12/20/18) tenofovir (Verified Allergy, Unknown, 12/20/18) tomato (Verified Allergy, Unknown, 12/20/18) trimethoprim (Verified Allergy, Unknown, 12/20/18) LAILA WHITEHEAD MD January 02, 2019 15:20
[2019-01-03] MEDS ORDERED: CLAR10CA3 PO (22:53)
[2019-01-03] MEDS ORDERED: HALO5TA PO (22:53)
[2019-01-03] MEDS ORDERED: MUCI600T31 PO (22:53)
[2019-01-03] MEDS ORDERED: PRED20TA PO (22:55)
== END 2019-01-01 13:00 | disposition home or self-care (01) | DRG 753 ==
LOC: M ED 20:30 → M ED INP 21:46 → M PSY 23:24
PROVIDERS: ADMIT Psychiatry & Neurology Child & Adolescent Psychiatry; ATTEND Psychiatry & Neurology Psychiatry
DX: F31.9 Bipolar disorder, unspecified (principal); E66.01 Morbid (severe) obesity due to excess calories; F60.3 Borderline personality disorder; Z79.899 Other long term (current) drug therapy; Z91.018 Allergy to other foods; Z88.0 Allergy status to penicillin; Z91.040 Latex allergy status; Z88.2 Allergy status to sulfonamides; E78.5 Hyperlipidemia, unspecified; J21.9 Acute bronchiolitis, unspecified

== ENCOUNTER 2019-01-09 21:33 | Emergency (ER) | payer MEDICAID ==
[~2019-01-09 21:33] MED LIST changes: +BENZ2TAB5 PO; +CLAR10TA7 PO; +HALO5TA PO; +MUCI600T31 PO; +PATIENT COMMENTS; -TRAZ-160 PO; +TRAZ-252 PO; +TRAZ1TAB10 PO; -TRAZO50TA PO
[2019-01-09 22:53] LABS: HEMATOCRIT 34.5 % (36.0-47.0); HEMOGLOBIN 10.8 g/dl (12.0-15.5); MEAN CORPUSCULAR HEMOGLOBIN 26.9 pg (27.0-33.0); MEAN CORPUSCULAR HGB CONC 31.3 g/dl (32.0-36.5); PLATELET COUNT, AUTOMATED 147 10^3/uL (150-450); RED BLOOD COUNT 4.01 10^6/uL (4.00-5.40); WHITE BLOOD COUNT 7.8 10^3/uL (4.0-10.0)
[2019-01-09 23:04] LABS: HCG, SERUM QUALITATIVE NEGATIVE (NEGATIVE)
[2019-01-09 23:10] LABS: AMPHETAMINES LEVEL URINE NEGATIVE (NEGATIVE); BARBITURATES URINE NEGATIVE (NEGATIVE); BENZODIAZEPINES URINE NEGATIVE (NEGATIVE); CANNABINOIDS URINE NEGATIVE (NEGATIVE); COCAINE METABOLITE URINE NEGATIVE (NEGATIVE); METHADONE URINE NEGATIVE (NEGATIVE); OPIATES URINE NEGATIVE (NEGATIVE); PHENCYCLIDINE URINE NEGATIVE (NEGATIVE)
[2019-01-09 23:23] LABS: ACETAMINOPHEN LEVEL 4.1 UG/ML (10.0-30.0); ALBUMIN 3.4 GM/DL (3.2-5.2); ALT/SGPT 27 U/L (12-78); BILIRUBIN,DIRECT < 0.1 MG/DL (0.0-0.2); BILIRUBIN,TOTAL 0.2 MG/DL (0.2-1.0); BLOOD UREA NITROGEN 12 MG/DL (7-18); CALCIUM LEVEL 8.5 MG/DL (8.5-10.1); CARBON DIOXIDE LEVEL 27 MEQ/L (21-32); CHLORIDE LEVEL 110 MEQ/L (98-107); CREATININE FOR GFR 0.74 MG/DL (0.55-1.30); ETHYL ALCOHOL (ETHANOL) < 0.003 % (0.000-0.010); GLUCOSE, FASTING 82 MG/DL (70-100); POTASSIUM SERUM 3.8 MEQ/L (3.5-5.1); SALICYLATE LEVEL < 1.7 MG/DL (5.0-30.0); SODIUM LEVEL 143 MEQ/L (136-145); TOTAL PROTEIN 6.1 GM/DL (6.4-8.2)
[2019-01-10 04:19] VITALS: BP 131/70
== END 2019-01-10 04:21 | disposition home or self-care (01) ==
LOC: M ED 21:33
DX: Z60.8 Other problems related to social environment (principal); Z73.4 Inadequate social skills, not elsewhere classified; G31.84 Mild cognitive impairment of uncertain or unknown etiology; F91.9 Conduct disorder, unspecified; Z79.899 Other long term (current) drug therapy; Z88.0 Allergy status to penicillin; Z88.1 Allergy status to other antibiotic agents; Z88.2 Allergy status to sulfonamides; Z88.8 Allergy status to other drugs, medicaments and biological substances; Z91.018 Allergy to other foods; Z91.040 Latex allergy status; Z91.048 Other nonmedicinal substance allergy status
CPT/HCPCS: 36415; 80048; 80076; 80307; 84443; 84703; 85027; 99284; G0480

== ENCOUNTER 2019-01-12 08:53 | Inpatient (IN) | payer MEDICAID ==
[~2019-01-12] VITALS: Ht 167.6 cm; Wt 144.0 kg
[2019-01-12 09:28] LABS: HEMATOCRIT 37.2 % (36.0-47.0); HEMOGLOBIN 11.6 g/dl (12.0-15.5); MEAN CORPUSCULAR HEMOGLOBIN 26.9 pg (27.0-33.0); MEAN CORPUSCULAR HGB CONC 31.2 g/dl (32.0-36.5); MEAN CORPUSCULAR VOLUME 86.1 fl (80.0-96.0); PLATELET COUNT, AUTOMATED 148 10^3/uL (150-450); RED BLOOD COUNT 4.32 10^6/uL (4.00-5.40); WHITE BLOOD COUNT 5.9 10^3/uL (4.0-10.0)
[2019-01-12 09:56] LABS: AMPHETAMINES LEVEL URINE NEGATIVE (NEGATIVE); BARBITURATES URINE NEGATIVE (NEGATIVE); BENZODIAZEPINES URINE NEGATIVE (NEGATIVE); CANNABINOIDS URINE NEGATIVE (NEGATIVE); COCAINE METABOLITE URINE NEGATIVE (NEGATIVE); METHADONE URINE NEGATIVE (NEGATIVE); OPIATES URINE NEGATIVE (NEGATIVE); PHENCYCLIDINE URINE NEGATIVE (NEGATIVE)
[2019-01-12 10:02] LABS: ACETAMINOPHEN LEVEL < 2.0 UG/ML (10.0-30.0); ALBUMIN 3.6 GM/DL (3.2-5.2); ALT/SGPT 40 U/L (12-78); BILIRUBIN,DIRECT < 0.1 MG/DL (0.0-0.2); BILIRUBIN,TOTAL 0.2 MG/DL (0.2-1.0); BLOOD UREA NITROGEN 11 MG/DL (7-18); CALCIUM LEVEL 8.4 MG/DL (8.5-10.1); CARBON DIOXIDE LEVEL 27 MEQ/L (21-32); CHLORIDE LEVEL 112 MEQ/L (98-107); GLUCOSE, FASTING 90 MG/DL (70-100); POTASSIUM SERUM 3.8 MEQ/L (3.5-5.1); SALICYLATE LEVEL < 1.7 MG/DL (5.0-30.0); SODIUM LEVEL 144 MEQ/L (136-145); THYROID STIMULATING HORMONE 0.929 uIU/ML (0.463-3.98); TOTAL PROTEIN 6.3 GM/DL (6.4-8.2)
[2019-01-12 10:03] LABS: ETHYL ALCOHOL (ETHANOL) < 0.003 % (0.000-0.010)
[2019-01-12] MEDS ORDERED: BENZ2TAB5 PO (12:34)
[2019-01-12] MEDS ORDERED: MELOXICAM (MOBIC) 7.5 MG TAB PO PRN (14:00)
[2019-01-12] MEDS ORDERED: FLUTICASONE PROP 0.05% NASAL SPRAY 16 GM (FLONASE) PRN (14:00)
[2019-01-12] MEDS ORDERED: MOM 30ML SUSPENSION UDC PO PRN (14:00)
[2019-01-12] MEDS ORDERED: MAALOX 30 ML SUSP *UDC PO PRN (14:00)
[2019-01-12] MEDS ORDERED: DICYCLOMINE 10 MG CAP PO PRN (14:00)
[2019-01-12] MEDS ORDERED: traZODone 50 MG TAB PO PRN (14:00)
[2019-01-12 15:35] VITALS: BP 108/68
[2019-01-12] MEDS: GABAPENTIN 100 MG CAP PO SCH ×2 (15:49→20:12)
[2019-01-12] MEDS: HALOPERIDOL 5 MG TAB PO SCH (20:12)
[2019-01-12] MEDS: PRAZOSIN 1 MG CAP PO SCH (20:13)
[2019-01-12] MEDS: diphenhydrAMINE 50 MG CAP PO SCH (20:13)
[2019-01-13 07:04] VITALS: BP 131/64
[2019-01-13] MEDS: diphenhydrAMINE 50 MG CAP PO SCH ×2 (09:00→20:01)
[2019-01-13] MEDS: BENZTROPINE 2 MG TAB PO SCH (09:15)
[2019-01-13] MEDS: HALOPERIDOL 5 MG TAB PO SCH ×2 (09:15→20:01)
[2019-01-13] MEDS: GABAPENTIN 100 MG CAP PO SCH ×3 (09:15→20:01)
[2019-01-13] MEDS: VENLAFAXINE 37.5 MG TAB PO SCH (09:16)
[2019-01-13] MEDS: LORATADINE 10 MG TAB PO SCH (09:16)
--- NOTE | 2019-01-13 14:43 | HPEPDOC ---
General Date of Admission January 12, 2019 at 13:58 Date of Service: Jan 13, 2019 Attending Physician: SMITHA ZELAYA MD Chief Complaint The patient is a 18-year-old female admitted with a reason for visit of Depressive Disorder. History of Present Illness Patient is a 18-year-old female, past medical history significant for obesity, hyperlipidemia, admitted on account of depression and suicidal ideation. Past medical history is also notable for multiple readmissions to inpatient psychiatric unit. This admission she presented on account of depression and feeling suicidal. Patient also reported she did not feel her medications were working since she was feeling very depressed and having thoughts of harming himself by jumping off a bridge. On assessment, she is very pleasant, denies chest pain, denies shortness of breath, denies weakness, denies nausea, vomiting, denies abdominal pain Home Medications Scheduled Benztropine Mesylate (Benztropine Mesylate) 2 Mg Tablet, 2 MG PO DAILY, (Reported) Diphenhydramine HCl (Diphenhydramine HCl) 50 Mg Cap, 50 MG PO BID for , (Reported) Etonogestrel (Nexplanon) 68 Mg Imp, 68 MG SC ASDIRECTED for , (Reported) DECEMBER 2016 Gabapentin (Gabapentin) 100 Mg Capsule, 100 MG PO TID, (Reported) Haloperidol (Haloperidol) 5 Mg Tablet, 5 MG PO BID, (Reported) Loratadine (Claritin) 10 Mg Capsule, 10 MG PO DAILY, (Reported) Prazosin Hcl (Prazosin HCl) 1 Mg Capsule, 1 MG PO QHS for , (Reported) Venlafaxine HCl (Venlafaxine HCl) 37.5 Mg Tablet, 75 MG PO DAILY, (Reported) Vitamin B Complex (Vitamin B Complex) 1 Each Tablet, 1 TAB PO DAILY for , (Reported) Scheduled PRN Dicyclomine HCl (Dicyclomine HCl) 10 Mg Capsule, 10 MG PO TID PRN for IBS, (Reported) Fluticasone Propionate (Flonase Allergy Relief) 9.9 Ml [place].susp, 2 SPRAYS NA DAILY PRN for NASAL CONGESTION, (Reported) Meloxicam (Mobic) 7.5 Mg Tablet, 7.5 MG PO BID PRN for PAIN, (Reported) Sumatriptan Succinate (Sumatriptan Succinate) 25 Mg Tablet, 25 MG PO DAILY PRN for MIGRAINE, (Reported) Trazodone HCl (Trazodone HCl) 150 Mg Tablet, 150 MG PO QHS PRN for INSOMNIA, (Reported) Allergies Coded Allergies: RUBBER (Verified Allergy, Intermediate, 12/20/18) Mushroom (Verified Allergy, Unknown, 12/20/18) Penicillins (Verified Allergy, Unknown, 12/20/18) Sulfa (Sulfonamide Antibiotics) (Verified Allergy, Unknown, 12/20/18) TURKEY (Verified Allergy, Unknown, 12/20/18) emtricitabine (Verified Allergy, Unknown, 12/20/18) latex (Verified Allergy, Unknown, 12/20/18) raltegravir (Verified Allergy, Unknown, 12/20/18) sulfamethoxazole (Verified Allergy, Unknown, 12/20/18) tenofovir (Verified Allergy, Unknown, 12/20/18) tomato (Verified Allergy, Unknown, 12/20/18) trimethoprim (Verified Allergy, Unknown, 12/20/18) Past Medical History Medical History Obesity Depression PTSD, Asthma, Borderline Personality disorder, PCOS Surgical History Adenoidectomy Tosillectomy Appendectomy L. Oopherectomy Family History DM and HTN in parents Social History * Smoker: Denies Alcohol: Denies Drugs: marijuana A-FIB/CHADSVASC A-FIB History Current/History of A-Fib/PAF?: No Current PO Anticoag Therapy: No Review of Systems Other systems A 10 point pertinent ROS was completed and was negative except as stated in the HPI Physical Examination General Exam: Positive: Alert, Cooperative, No Acute Distress, Other (Obese) Eye Exam: Positive: PERRLA, Conjunctiva & lids normal, EOMI ENT Exam: Positive: Atraumatic, Mucous membr. moist/pink Neck Exam: Positive: Supple, +2 carotid pulse wo bruit; Negative: JVD, thyromegaly Chest Exam: Positive: Clear to auscultation, Normal air movement; Negative: Rales, Rhonchi Heart Exam: Positive: Rate Normal, Regular Rhythm Abdomen Exam: Positive: Normal bowel sounds, Soft; Negative: Tenderness Extremity Exam: Negative: Clubbing, Cyanosis, Edema Skin Exam: Positive: Nl turgor and temperature; Negative: Rash, Breakdown Neuro Exam: Positive: Normal Speech, Strength at 5/5 X4 ext Psych Exam: Positive: Mental status NL Vital Signs Vital Signs Date Time Temp Pulse Resp B/P (MAP) Pulse Ox O2 Delivery O2 Flow Rate FiO2 01/13/19 07:04 97.0 82 14 131/64 (86) 01/12/19 15:21 100 Room Air Assessment/Plan Obesity Depression Suicidal Ideation Polysubstance Abuse Plan At this time patient has no acute medical problems or underlying comorbidities requiring active follow-up. Acute problems are as managed by primary team. Medical team will sign off, please re-consult as needed. Plan / VTE VTE Prophylaxis Ordered?: No VTE Exclusion Mechanical Proph: Low Risk for VTE MARY LOU VICENTE Jan 13, 2019 14:43
[2019-01-13 18:26] VITALS: BP 132/76
[2019-01-13] MEDS: PRAZOSIN 1 MG CAP PO SCH (20:01)
[2019-01-14 06:48] VITALS: BP 121/56
[2019-01-14] MEDS: LORATADINE 10 MG TAB PO SCH (09:07)
[2019-01-14] MEDS: HALOPERIDOL 5 MG TAB PO SCH ×2 (09:07→22:39)
[2019-01-14] MEDS: VENLAFAXINE 37.5 MG TAB PO SCH (09:07)
[2019-01-14] MEDS: BENZTROPINE 2 MG TAB PO SCH (09:07)
[2019-01-14] MEDS: GABAPENTIN 100 MG CAP PO SCH ×3 (09:07→20:51)
[2019-01-14] MEDS: diphenhydrAMINE 50 MG CAP PO SCH ×2 (09:07→20:51)
[2019-01-14] MEDS: hydrOXYzine 50 MG TAB PO PRN (16:23)
[2019-01-14 18:13] VITALS: BP 103/55
--- NOTE | 2019-01-14 21:47 | MHHPE ---
DATE OF ADMISSION: CHIEF COMPLAINT: Feels suicidal. SUBJECTIVE: She is 18 years old. Says lives with friends and has been there for less than a week or so. She has come in as she says she was feeling stressed related to "family issues", which she tended not to elaborate on. Says was suicidal and has had thoughts of killing herself by jumping off a bridge. Later suggests it would be any bridge. She has a history of considerable difficulties and several inpatient hospitalizations. Within the last few weeks has been admitted on at least three occasions. Please refer to previous summaries for details. Was discharged from the hospital about three days or so ago, only for her to return. Says found out that her father was not doing well, but again did not elaborate. She says is also due to see her outpatient psychiatrist and therapist yesterday and did not come, as she came to the hospital. She indicates she has two children (I am informed by staff that is not entirely accurate), and that they are in foster care or they are going to be placed there, but that she had them just prior to that. Her reliability is quite questionable in terms of her history. PAST PSYCHIATRIC HISTORY: Please refer to previous summary. She carries several diagnoses, including cyclothymic disorder, borderline personality disorder. Has a history of being impulsive, labile. At some point, by the chart, also carries a diagnosis of posttraumatic stress disorder. MENTAL STATUS EXAMINATION: Fair hygiene. A bit guarded. Somewhat superficially cooperative. She is obese. There is no agitation. No psychomotor retardation. At present, she is vague on suicidal thoughts, denies any firm plans. She denies any thoughts of harming anyone else. Currently no convincing evidence of psychosis. Cognition grossly intact. Judgment and insight are compromised. ASSESSMENT: 1. Cyclothymic disorder. 2. Borderline personality disorder. 3. Posttraumatic stress disorder by history. 4. Enduring circumstances. 5. Poor frustration tolerance. 6. Limited social support. 7. Interpersonal difficulties. This is one of several hospitalizations. Symptoms are vague, though suggests that she has been suicidal recently. PLAN: She is admitted to inpatient psychiatric unit, placed on relevant precautions, and I would suggest resuming previous medications, obtaining collateral information. She will receive a medicine consult if indicated. She will be encouraged to participate in activities in the unit. Given the frequent inpatient hospitalizations, even within the last few weeks, and lack of success as an outpatient in the community, I would suggest considering evaluating the patient for usp care, as outpatient care has not been successful lately. Further recommendations will be made depending on the clinical picture. VITAL SIGNS: Blood pressure 131/64, pulse 82, temperature 97. The assessment took 30 minutes.
[2019-01-14] MEDS: PRAZOSIN 1 MG CAP PO SCH (22:39)
[2019-01-15 07:00] VITALS: BP 124/76
[2019-01-15] MEDS ORDERED: **PENDING PPD ENTRY XX SCH (09:00)
[2019-01-15] MEDS: GABAPENTIN 100 MG CAP PO SCH ×3 (09:01→20:07)
[2019-01-15] MEDS: BENZTROPINE 2 MG TAB PO SCH (09:01)
[2019-01-15] MEDS: HALOPERIDOL 5 MG TAB PO SCH ×2 (09:01→20:07)
[2019-01-15] MEDS: LORATADINE 10 MG TAB PO SCH (09:01)
[2019-01-15] MEDS: VENLAFAXINE 37.5 MG TAB PO SCH (09:01)
--- NOTE | 2019-01-15 09:57 | MHIPN ---
DATE: 01/14/2019 CHIEF COMPLAINT: Feels a bit upset. SUBJECTIVE: Seen for follow-up. Indicates has been doing okay, but she has wanted to sleep. Suggests did not get much sleep last night, though is somewhat vague on this. MENTAL STATUS EXAMINATION: She is fairly neat. She is somewhat superficially cooperative. No agitation but displays mild irritability, and was easily upset earlier when we had asked her to leave the room before we saw her roommate. She is coherent. Denies any suicidal thoughts or intents. No homicidal ideas or intents. No evidence of any psychosis. Cognition is grossly intact. Judgment and insight questionable. ASSESSMENT: Cyclothymic disorder. Borderline personality disorder. PLAN: Continue current care and observations, and I would suggest that when she is seen by the treatment team tomorrow, recommendations are made and long term care may need to be considered, given the frequency of her recent admissions, unless outpatient facilities, including housing, can be solidified. It is recommended that she stay out of her room during the daytime, other than an hour in there, this is to enhance her progress. VITAL SIGNS: Blood pressure 121/56, pulse 77, temperature 99.6.
[2019-01-15] MEDS: hydrOXYzine 50 MG TAB PO PRN (11:16)
[2019-01-15] MEDS ORDERED: TUBERCULIN PPD 5 UNITS/0.1 ML ID ONE (11:30)
[2019-01-15] MEDS ORDERED: traZODone 50 MG TAB PO PRN (15:30)
[2019-01-15 18:45] VITALS: BP 109/53
--- NOTE | 2019-01-15 19:19 | MHIPNPDOC ---
[facility] Progress Note Progress Note DATE OF SERVICE: 01/15/19 HISTORY: As per ED report: "Pt. states she is depressed and suicidal, does not think her meds are working because she has been taking them and she still feels suicidal. She states she has thoughts of jumping off a bridge. Pt. was d/c from [facility] on 01/09/2019. She has had multiple psychiatric admissions to this hospital and other facilities for psychiatric treatment and multiple times has presented for admission just days after d/c. Pt. denies AH/VH, she denies past suicide attempts/self harm. She states on going family issues as reason for her depression/SI and she will not contract for safety. VITAL SIGNS: See below. NEW TEST RESULTS: See below CURRENT MEDICATIONS: See below. MENTAL STATUS EXAMINATION: Patient is a 18-year old female, who is alert, cooperative, dressed in personal clothes. Speech: Is coherent, normal in tone, rate, rhythm and volume. Language skills are good. Thought processes including: linear, coherent. Thought content: she denies active SI at this time, she admits to have fleeting suicidal thoughts, she denies HI. Description of abnormal or psychotic thoughts: Denies current AV hallucinations, denies thought delusions Judgment: Poor Insight: Poor. Orientation: x 3. Recent and remote memory: fair. Attention span and concentration: good. Language: average. Fund of knowledge: average. Mood: anxious Affect: cpngruent with mood, anxious, full ,appropriate, congruent. DIAGNOSES: 1. Bipolar 2 disorder. 2. Borderline personality disorder. ASSESSMENT: The patient was seen in behavioral control this time and according to staff she had a good weekend too. She has been hospitalized way too many times at [facility] and she still comes in. Her presentation is usually the same. Exactly for that reason she was told today that she will go to [facility] since nothing we have done seems to work. She was very receptive and she said she was agreeable to going to [facility]. Today in the afternoon she requested to be out of room restrictions and because she has been in behavioral she was told that if she keeps doing that she will be able to stay use her room as long as she keeps attending groups. MANAGEMENT PLAN: As above TIME SPENT: 20 minutes. Vital Signs Vital Signs Date Time Temp Pulse Resp B/P (MAP) Pulse Ox O2 Delivery O2 Flow Rate FiO2 01/15/19 18:45 97.5 102 20 109/53 (71) 01/12/19 15:21 100 Room Air Current Medications Current Medications Acetaminophen (Tylenol Tab) 650 mg Q6HP PRN PO HEADACHE or DISCOMFORT; Start 01/12/19 at 14:00 Al Hydrox/Mg Hydrox/Simethicone (Mylanta) 30 ml Q4HP PRN PO HEARTBURN/INDIGESTION; Start 01/12/19 at 14:00 Benztropine Mesylate (Cogentin) 2 mg DAILY PO Last administered on 01/15/19 09:01; Start 01/13/19 at 09:00 Dicyclomine HCl (Bentyl) 10 mg TIDP PRN PO IBS Last administered on 01/15/19 18:43; Start 01/12/19 at 14:00 Diphenhydramine HCl (Benadryl) 50 mg BID PO Last administered on 01/14/19 20:5 1; Start 01/12/19 at 21:00; Stop 01/14/19 at 21:00; Status DC Fluticasone Propionate (Flonase 0.05% Nasal [place]) 2 spray DAILY PRN NA NASAL CONGESTION; Start 01/12/19 at 14:00 Gabapentin (Neurontin) 100 mg TID PO Last administered on 01/15/19 16:41; Sta rt 01/12/19 at 16:00 Haloperidol (Haldol) 5 mg BID PO Last administered on 01/15/19 09:01; Start 01/12/19 at 21:00 Home Med (Med Rec Complete!) ASDIRECTED XX ; Start 01/12/19 at 12:45; Stop 01/12/19 at 12:45; Status DC Hydroxyzine HCl (Atarax) 50 mg Q6HP PRN PO ANXIETY/AGITATION Last administered on 01/15/19 11:16; Start 01/12/19 at 20:45 Loratadine (Claritin) 10 mg DAILY PO Last administered on 01/15/19 09:01; Start 01/13/19 at 09:00 Magnesium Hydroxide (Milk Of Magnesia) 30 ml DAILYPRN PRN PO CONSTIPATION; Start 01/12/19 at 14:00 Meloxicam (Mobic) 7.5 mg BID PRN PO PAIN; Start 01/12/19 at 14:00; Stop 01/14/19 at 14:00; Status DC Non-Formulary Medication ( See Comment Field Below ) SEE COMMENTS SECTION 1T@10 XX ; Start 01/17/19 at 10:00; Stop 01/17/19 at 10:00; Status DC Non-Formulary Medication ( See Comment Field Below ) SEE LABEL COMMENTS DAILY XX ; Start 01/15/19 at 09:00; Stop 01/15/19 at 11:24; Status DC Prazosin HCl (Minipress) 1 mg QHS PO Last administered on 01/14/19at 22:39; Start 01/12/19 at 21:00 Sumatriptan Succinate (Imitrex) 25 mg DAILY PRN PO MIGRAINE; Start 01/12/19 at 14:00 Trazodone HCl (Desyrel) 75 mg QHSP PRN PO INSOMNIA; Start 01/15/19 at 15:30 Trazodone HCl (Desyrel) 150 mg QHSP PRN PO INSOMNIA Last administered on 01/12/19at 20:12; Start 01/12/19 at 14:00; Stop 01/15/19 at 15:20; Status DC Venlafaxine HCl (Effexor) 75 mg DAILY PO Last administered on 01/15/19at 09:01; Start 01/13/19 at 09:00 Allergies Coded Allergies: RUBBER (Verified Allergy, Intermediate, 12/20/18) Mushroom (Verified Allergy, Unknown, 12/20/18) Penicillins (Verified Allergy, Unknown, 12/20/18) Sulfa (Sulfonamide Antibiotics) (Verified Allergy, Unknown, 12/20/18) TURKEY (Verified Allergy, Unknown, 12/20/18) emtricitabine (Verified Allergy, Unknown, 12/20/18) latex (Verified Allergy, Unknown, 12/20/18) raltegravir (Verified Allergy, Unknown, 12/20/18) sulfamethoxazole (Verified Allergy, Unknown, 12/20/18) tenofovir (Verified Allergy, Unknown, 12/20/18) tomato (Verified Allergy, Unknown, 12/20/18) trimethoprim (Verified Allergy, Unknown, 12/20/18) LAILA WHITEHEAD MD Jan 15, 2019 19:19
[2019-01-15] MEDS: ACETAMINOPHEN TAB 650MG DOSE (2X325MG) PO PRN (19:50)
[2019-01-15] MEDS: PRAZOSIN 1 MG CAP PO SCH (20:07)
[2019-01-16 06:43] VITALS: BP 111/54
[2019-01-16] MEDS: GABAPENTIN 100 MG CAP PO SCH ×3 (08:14→20:28)
[2019-01-16] MEDS: LORATADINE 10 MG TAB PO SCH (08:14)
[2019-01-16] MEDS: HALOPERIDOL 5 MG TAB PO SCH ×2 (08:14→20:28)
[2019-01-16] MEDS: BENZTROPINE 2 MG TAB PO SCH (08:14)
[2019-01-16] MEDS: VENLAFAXINE 37.5 MG TAB PO SCH (08:14)
[2019-01-16] MEDS ORDERED: TUBERCULIN PPD 5 UNITS/0.1 ML ID ONE (10:00)
[2019-01-16] MEDS: ACETAMINOPHEN TAB 650MG DOSE (2X325MG) PO PRN (13:11)
[2019-01-16] MEDS: SUMAtriptan SUCCINATE 25 MG TAB PO PRN (14:59)
[2019-01-16] MEDS: hydrOXYzine 50 MG TAB PO PRN (17:05)
--- NOTE | 2019-01-16 17:06 | MHIPNPDOC ---
[facility] Progress Note Progress Note DATE OF SERVICE: 01/16/19 HISTORY: As per ED report: "Pt. states she is depressed and suicidal, does not think her meds are working because she has been taking them and she still feels suicidal. She states she has thoughts of jumping off a bridge. Pt. was d/c from [facility] on 01/09/2019. She has had multiple psychiatric admissions to this hospital and other facilities for psychiatric treatment and multiple times has presented for admission just days after d/c. Pt. denies AH/VH, she denies past suicide attempts/self harm. She states on going family issues as reason for her depression/SI and she will not contract for safety. VITAL SIGNS: See below. NEW TEST RESULTS: See below CURRENT MEDICATIONS: See below. MENTAL STATUS EXAMINATION: Patient is a 18-year old female, who is alert, cooperative, dressed in personal clothes. Speech: Is coherent, normal in tone, rate, rhythm and volume. Language skills are good. Thought processes including: linear, coherent. Thought content: she denies active SI at this time, she admits to have fleeting suicidal thoughts, she denies HI. Description of abnormal or psychotic thoughts: Denies current AV hallucinations, denies thought delusions Judgment: Poor Insight: Poor. Orientation: x 3. Recent and remote memory: fair. Attention span and concentration: good. Language: average. Fund of knowledge: average. Mood: anxious Affect: congruent with mood, anxious, full ,appropriate, congruent. DIAGNOSES: 1. Bipolar 2 disorder. 2. Borderline personality disorder. ASSESSMENT: The patient has been in behavioral control, she has been compliant with medications. She has complained of having sleep problems, she says that 75 mgs of Trazodone are still too much, she becomes drowsy and she has daytime sleepiness for that reason. MANAGEMENT PLAN: As above TIME SPENT: 20 minutes. Vital Signs Vital Signs Date Time Temp Pulse Resp B/P (MAP) Pulse Ox O2 Delivery O2 Flow Rate FiO2 01/16/19 06:43 98.8 52 16 111/54 (73) 01/12/19 15:21 100 Room Air Current Medications Current Medications Acetaminophen (Tylenol Tab) 650 mg Q6HP PRN PO HEADACHE or DISCOMFORT Last administered on 01/16/19at 13:11; Start 01/12/19 at 14:00 Al Hydrox/Mg Hydrox/Simethicone (Mylanta) 30 ml Q4HP PRN PO HEARTBURN/INDIGESTION; Start 01/12/19 at 14:00 Benztropine Mesylate (Cogentin) 2 mg DAILY PO Last administered on 01/16/19 08:14; Start 01/13/19 at 09:00 Dicyclomine HCl (Bentyl) 10 mg TIDP PRN PO IBS Last administered on 01/15/19 18:43; Start 01/12/19 at 14:00 Diphenhydramine HCl (Benadryl) 50 mg BID PO Last administered on 01/14/19 20:51; Start 01/12/19 at 21:00; Stop 01/14/19 at 21:00; Status DC Fluticasone Propionate (Flonase 0.05% Nasal [place]) 2 spray DAILY PRN NA NASAL CONGESTION; Start 01/12/19 at 14:00 Gabapentin (Neurontin) 100 mg TID PO Last administered on 01/16/19at 15:46; Start 01/12/19 at 16:00 Haloperidol (Haldol) 5 mg BID PO Last administered on 01/16/19 08:14; Start 01/12/19 at 21:00 Home Med (Med Rec Complete!) ASDIRECTED XX ; Start 01/12/19 at 12:45; Stop 01/12/19 at 12:45; Status DC Hydroxyzine HCl (Atarax) 50 mg Q6HP PRN PO ANXIETY/AGITATION Last administered on 01/15/19at 11:16; Start 01/12/19 at 20:45 Loratadine (Claritin) 10 mg DAILY PO Last administered on 01/16/19at 08:14; Start 01/13/19 at 09:00 Magnesium Hydroxide (Milk Of Magnesia) 30 ml DAILYPRN PRN PO CONSTIPATION; Start 01/12/19 at 14:00 Meloxicam (Mobic) 7.5 mg BID PRN PO PAIN; Start 01/12/19 at 14:00; Stop 01/14/19 at 14:00; Status DC Non-Formulary Medication ( See Comment Field Below ) SEE COMMENTS SECTION 1T@10 XX ; Start 01/17/19 at 10:00; Stop 01/17/19 at 10:00; Status DC Non-Formulary Medication ( See Comment Field Below ) SEE LABEL COMMENTS DAILY XX ; Start 01/15/19 at 09:00; Stop 01/15/19 at 11:24; Status DC Prazosin HCl (Minipress) 1 mg QHS PO Last administered on 01/15/19at 20:07; Start 01/12/19 at 21:00 Sumatriptan Succinate (Imitrex) 25 mg DAILY PRN PO MIGRAINE Last administered on 01/16/19at 14:59; Start 01/12/19 at 14:00 Trazodone HCl (Desyrel) 75 mg QHSP PRN PO INSOMNIA Last administered on 01/15/19at 20:08; Start 01/15/19 at 15:30 Trazodone HCl (Desyrel) 150 mg QHSP PRN PO INSOMNIA Last administered on 01/12/19at 20:12; Start 01/12/19 at 14:00; Stop 01/15/19 at 15:20; Status DC Venlafaxine HCl (Effexor) 75 mg DAILY PO Last administered on 01/16/19at 08:14; Start 01/13/19 at 09:00 Allergies Coded Allergies: RUBBER (Verified Allergy, Intermediate, 12/20/18) Mushroom (Verified Allergy, Unknown, 12/20/18) Penicillins (Verified Allergy, Unknown, 12/20/18) Sulfa (Sulfonamide Antibiotics) (Verified Allergy, Unknown, 12/20/18) TURKEY (Verified Allergy, Unknown, 12/20/18) emtricitabine (Verified Allergy, Unknown, 12/20/18) latex (Verified Allergy, Unknown, 12/20/18) raltegravir (Verified Allergy, Unknown, 12/20/18) sulfamethoxazole (Verified Allergy, Unknown, 12/20/18) tenofovir (Verified Allergy, Unknown, 12/20/18) tomato (Verified Allergy, Unknown, 12/20/18) trimethoprim (Verified Allergy, Unknown, 12/20/18) LAILA WHITEHEAD MD Jan 16, 2019 17:06
[2019-01-16 18:46] VITALS: BP 117/66
[2019-01-16] MEDS: PRAZOSIN 1 MG CAP PO SCH (20:28)
[2019-01-16] MEDS: MIRTAZAPINE 15 MG TAB PO SCH (20:28)
[2019-01-17 06:51] VITALS: BP 105/48
[2019-01-17] MEDS: LORATADINE 10 MG TAB PO SCH (08:49)
[2019-01-17] MEDS: VENLAFAXINE 37.5 MG TAB PO SCH (08:49)
[2019-01-17] MEDS: GABAPENTIN 100 MG CAP PO SCH ×3 (08:49→20:14)
[2019-01-17] MEDS: BENZTROPINE 2 MG TAB PO SCH (08:50)
[2019-01-17] MEDS: HALOPERIDOL 5 MG TAB PO SCH ×2 (08:50→20:14)
[2019-01-17] MEDS ORDERED: PPD DOCUMENTATION ENTRY MISC XX SCH (10:00)
[2019-01-17] MEDS: SUMAtriptan SUCCINATE 25 MG TAB PO PRN (10:45)
[2019-01-17] MEDS ORDERED: PPD DOCUMENTATION ENTRY MISC XX ONE (11:30)
[2019-01-17 18:00] VITALS: BP 126/70
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
[2019-01-17] MEDS ORDERED: IBUPROFEN 600 MG TAB PO ONE (18:45)
[2019-01-17] MEDS: MIRTAZAPINE 15 MG TAB PO SCH (20:14)
[2019-01-17] MEDS: PRAZOSIN 1 MG CAP PO SCH (20:14)
[2019-01-18 06:56] VITALS: BP 106/51
[2019-01-18] MEDS: LORATADINE 10 MG TAB PO SCH (09:12)
[2019-01-18] MEDS: VENLAFAXINE 37.5 MG TAB PO SCH (09:12)
[2019-01-18] MEDS: BENZTROPINE 2 MG TAB PO SCH (09:12)
[2019-01-18] MEDS: HALOPERIDOL 5 MG TAB PO SCH ×2 (09:12→20:00)
[2019-01-18] MEDS: GABAPENTIN 100 MG CAP PO SCH ×3 (09:12→20:00)
[2019-01-18] MEDS: IBUPROFEN 600 MG TAB PO PRN (09:13)
--- NOTE | 2019-01-18 15:35 | MHIPNPDOC ---
[facility] Progress Note Progress Note DATE OF SERVICE: 01/18/19 HISTORY: As per ED report: "Patient states she is depressed and suicidal, does not think her meds are working because she has been taking them and she still fe els suicidal. She states she has thoughts of jumping off a bridge." Patient was discharged from inpatient mental health unit on 01/09/2019. She has had multiple psychiatric admissions to this hospital in other facilities for psychiatric treatment and multiple times and had presented for admission just days after discharge. Patient denies auditory or visual hallucinations, she den ies past suicide attempts/self-harm. She states ongoing family issues as a reason for her depression/suicidal ideation and she will not contract for safety. In talking with the patient today, she does not have any suicidal or homicidal ideations. She states that she had a migraine today. Patient has been going to group therapy sessions except for yoga early in the morning and medit ation. She states that she likes to do meditation on her own during quiet time while reading her book. VITAL SIGNS: See below. NEW TEST RESULTS: See below. CURRENT MEDICATIONS: See below. MENTAL STATUS EXAMINATION: Patient is a 18-year old female, who is alert, cooperative, dressed in hospital scrubs. Speech: Is coherent, normal in tone, rate, rhythm and volume. Language skills are good. Thought processes including: Linear, coherent. Thought content: She denies active suicidal ideation at this time, she denies homicidal ideations at this time. Description of abnormal or psychotic thoughts: Denies. Judgment: Poor. Insight: Poor. Orientation: 3. Recent and remote memory: Fair. Attention span and concentration: good. Language: Average. Fund of knowledge: Average. Mood: Anxious. Affect: Congruent with mood, anxious, full, appropriate, congruent. DIAGNOSES: 1. Bipolar 2 disorder. 2. Borderline Personality disorder. ASSESSMENT: Patient was calm and cooperative today during examination. Patient was found in her room sleeping. Patient states that she was trying to get rid of a migraine headache. She says that she was going to go and get her Imitrex at the nurses station after the interview. Patient was encouraged to attend group therapy sessions. Plan is to transfer the patient to [facility] for long-term care. MANAGEMENT PLAN: As above. TIME SPENT: 20 minutes. Vital Signs Vital Signs Date Time Temp Pulse Resp B/P (MAP) Pulse Ox O2 Delivery O2 Flow Rate FiO2 01/18/19 06:56 98.4 52 16 106/51 (69) 01/12/19 15:21 100 Room Air Current Medications Current Medications Acetaminophen (Tylenol Tab) 650 mg Q6HP PRN PO HEADACHE or DISCOMFORT Last administered on 01/16/19 13:11; Start 01/12/19 at 14:00 Al Hydrox/Mg Hydrox/Simethicone (Mylanta) 30 ml Q4HP PRN PO HEARTBURN/INDIGESTION; Start 01/12/19 at 14:00 Benztropine Mesylate (Cogentin) 2 mg DAILY PO Last administered on 01/18/19 09:12; Start 01/13/19 at 09:00 Dicyclomine HCl (Bentyl) 10 mg TIDP PRN PO IBS Last administered on 01/15/19 18:43; Start 01/12/19 at 14:00 Diphenhydramine HCl (Benadryl) 50 mg BID PO Last administered on 01/14/19 20:51; Start 01/12/19 at 21:00; Stop 01/14/19 at 21:00; Status DC Fluticasone Propionate (Flonase 0.05% Nasal [place]) 2 spray DAILY PRN NA NASAL CONGESTION; Start 01/12/19 at 14:00 Gabapentin (Neurontin) 100 mg TID PO Last administered on 01/18/19 09:12; Start 01/12/19 at 16:00 Haloperidol (Haldol) 5 mg BID PO Last administered on 01/18/19 09:12; Start 01/12/19 at 21:00 Home Med (Med Rec Complete!) ASDIRECTED XX ; Start 01/12/19 at 12:45; Stop 01/12/19 at 12:45; Status DC Hydroxyzine HCl (Atarax) 50 mg Q6HP PRN PO ANXIETY/AGITATION Last administered on 01/16/19 17:05; Start 01/12/19 at 20:45 Ibuprofen (Advil) 600 mg Q6H PRN PO PAIN Last administered on 01/18/19 09:13; Start 01/17/19 at 18:45 Loratadine (Claritin) 10 mg DAILY PO Last administered on 01/18/19 09:12; Start 01/13/19 at 09:00 Magnesium Hydroxide (Milk Of Magnesia) 30 ml DAILYPRN PRN PO CONSTIPATION; St art 01/12/19 at 14:00 Meloxicam (Mobic) 7.5 mg BID PRN PO PAIN; Start 01/12/19 at 14:00; Stop 01/14/19 at 14:00; Status DC Mirtazapine (Remeron) 15 mg QHS PO Last administered on 01/17/19at 20:14; Start 01/16/19 at 21:00 Non-Formulary Medication ( See Comment Field Below ) SEE COMMENTS SECTION 1T@10 XX ; Start 01/17/19 at 10:00; Stop 01/17/19 at 10:00; Status DC Non-Formulary Medication ( See Comment Field Below ) SEE LABEL COMMENTS DAILY XX ; Start 01/15/19 at 09:00; Stop 01/15/19 at 11:24; Status DC Prazosin HCl (Minipress) 1 mg QHS PO Last administered on 01/17/19at 20:14; Start 01/12/19 at 21:00 Sumatriptan Succinate (Imitrex) 25 mg DAILY PRN PO MIGRAINE Last administered on 01/17/19at 10:45; Start 01/12/19 at 14:00 Trazodone HCl (Desyrel) 75 mg QHSP PRN PO INSOMNIA Last administered on 01/15/19at 20:08; Start 01/15/19 at 15:30; Stop 01/16/19 at 17:07; Status DC Trazodone HCl (Desyrel) 150 mg QHSP PRN PO INSOMNIA Last administered on 01/12/19at 20:12; Start 01/12/19 at 14:00; Stop 01/15/19 at 15:20; Status DC Venlafaxine HCl (Effexor) 75 mg DAILY PO Last administered on 01/18/19at 09:12; Start 01/13/19 at 09:00 Allergies Coded Allergies: RUBBER (Verified Allergy, Intermediate, 12/20/18) Mushroom (Verified Allergy, Unknown, 12/20/18) Penicillins (Verified Allergy, Unknown, 12/20/18) Sulfa (Sulfonamide Antibiotics) (Verified Allergy, Unknown, 12/20/18) TURKEY (Verified Allergy, Unknown, 12/20/18) emtricitabine (Verified Allergy, Unknown, 12/20/18) latex (Verified Allergy, Unknown, 12/20/18) raltegravir (Verified Allergy, Unknown, 12/20/18) sulfamethoxazole (Verified Allergy, Unknown, 12/20/18) tenofovir (Verified Allergy, Unknown, 12/20/18) tomato (Verified Allergy, Unknown, 12/20/18) trimethoprim (Verified Allergy, Unknown, 12/20/18) GME ATTESTATION GME ATTESTATION My faculty preceptor for this patient encounter was physically present during the encounter and was fully available. All aspects of the patient interview, examination, medical decision making process, and medical care plan development were reviewed and approved by the faculty preceptor. The faculty preceptor is aware and concurs with the plan as stated in the body of this note and will attest to such by his/her cosignature. RAMYA JIMENEZ DO Jan 18, 2019 15:35
[2019-01-18] MEDS: hydrOXYzine 50 MG TAB PO PRN (17:15)
[2019-01-18 18:00] VITALS: BP 110/60
[2019-01-18] MEDS: PRAZOSIN 1 MG CAP PO SCH (20:00)
[2019-01-18] MEDS: MIRTAZAPINE 15 MG TAB PO SCH (20:00)
[2019-01-19 06:44] VITALS: BP 130/62
[2019-01-19] MEDS: BENZTROPINE 2 MG TAB PO SCH (08:44)
[2019-01-19] MEDS: GABAPENTIN 100 MG CAP PO SCH ×3 (08:44→20:09)
[2019-01-19] MEDS: LORATADINE 10 MG TAB PO SCH (08:44)
[2019-01-19] MEDS: VENLAFAXINE 37.5 MG TAB PO SCH (08:44)
[2019-01-19] MEDS: HALOPERIDOL 5 MG TAB PO SCH ×2 (08:44→20:09)
[2019-01-19 18:09] VITALS: BP 105/53
[2019-01-19] MEDS: MIRTAZAPINE 15 MG TAB PO SCH (20:09)
[2019-01-19] MEDS: PRAZOSIN 1 MG CAP PO SCH (20:09)
--- NOTE | 2019-01-19 21:26 | MHIPNPDOC ---
[facility] Progress Note Progress Note DATE OF SERVICE: 01/19/19 HISTORY: As per ED report: "Pt. states she is depressed and suicidal, does not think her meds are working because she has been taking them and she still feels suicidal. She states she has thoughts of jumping off a bridge. Pt. was d/c from [facility] on 01/09/2019. She has had multiple psychiatric admissions to this hospital and other facilities for psychiatric treatment and multiple times has presented for admission just days after d/c. Pt. denies AH/VH, she denies past suicide attempts/self harm. She states on going family issues as reason for her depression/SI and she will not contract for safety. VITAL SIGNS: See below. NEW TEST RESULTS: See below CURRENT MEDICATIONS: See below. MENTAL STATUS EXAMINATION: Patient is a 18-year old female, who is alert, uncooperative, manipulative, dressed in personal clothes. Speech: Is linear although it is illogical Language skills are good. Thought processes including: linear, coherent. Thought content: Active SI, denies HI Description of abnormal or psychotic thoughts: Denies AV hallucinations, denies thought deluisons Judgment: Poor Insight: Poor. Orientation: x 3. Recent and remote memory: fair. Attention span and concentration: good. Language: average. Fund of knowledge: average. Mood: anxious, irritable, angry Affect: congruent with mood, anxious, full ,inappropriate, congruent. DIAGNOSES: 1. Bipolar 2 disorder. 2. Borderline personality disorder. ASSESSMENT: The patient's mental status exam has not changed much from yesterday but she has been ordered to be locked out of her room and ever since that order has been followed she has been acting out saying that she is going to kill herself, because she doesn't want to attend groups. Her Nurse and Safety aids staff have been monitoring her closely. MANAGEMENT PLAN: As above TIME SPENT: 20 minutes. Vital Signs Vital Signs Date Time Temp Pulse Resp B/P (MAP) Pulse Ox O2 Delivery O2 Flow Rate FiO2 01/19/19 20:09 152/90 01/19/19 18:09 100.1 66 16 Current Medications Current Medications Acetaminophen (Tylenol Tab) 650 mg Q6HP PRN PO HEADACHE or DISCOMFORT Last administered on 01/16/19at 13:11; Start 01/12/19 at 14:00 Al Hydrox/Mg Hydrox/Simethicone (Mylanta) 30 ml Q4HP PRN PO HEARTBURN/INDIGESTION; Start 01/12/19 at 14:00 Benztropine Mesylate (Cogentin) 2 mg DAILY PO Last administered on 01/19/19 08:44; Start 01/13/19 at 09:00 Dicyclomine HCl (Bentyl) 10 mg TIDP PRN PO IBS Last administered on 01/15/19 18:43; Start 01/12/19 at 14:00 Diphenhydramine HCl (Benadryl) 50 mg BID PO Last administered on 01/14/19 20:51; Start 01/12/19 at 21:00; Stop 01/14/19 at 21:00; Status DC Fluticasone Propionate (Flonase 0.05% Nasal [place]) 2 spray DAILY PRN NA NASAL CONGESTION; Start 01/12/19 at 14:00 Gabapentin (Neurontin) 100 mg TID PO Last administered on 01/19/19 20:09; Start 01/12/19 at 16:00 Haloperidol (Haldol) 5 mg BID PO Last administered on 01/19/19 20:09; Start 01/12/19 at 21:00 Home Med (Med Rec Complete!) ASDIRECTED XX ; Start 01/12/19 at 12:45; Stop 01/12/19 at 12:45; Status DC Hydroxyzine HCl (Atarax) 50 mg Q6HP PRN PO ANXIETY/AGITATION Last administered on 01/18/19 17:15; Start 01/12/19 at 20:45 Ibuprofen (Advil) 600 mg Q6H PRN PO PAIN Last administered on 01/18/19 09:13; Start 01/17/19 at 18:45 Loratadine (Claritin) 10 mg DAILY PO Last administered on 01/19/19 08:44; Start 01/13/19 at 09:00 Magnesium Hydroxide (Milk Of Magnesia) 30 ml DAILYPRN PRN PO CONSTIPATION; Start 01/12/19 at 14:00 Meloxicam (Mobic) 7.5 mg BID PRN PO PAIN; Start 01/12/19 at 14:00; Stop 01/14/19 at 14:00; Status DC Mirtazapine (Remeron) 15 mg QHS PO Last administered on 01/19/19at 20:09; Start 01/16/19 at 21:00 Non-Formulary Medication ( See Comment Field Below ) SEE COMMENTS SECTION 1T@10 XX ; Start 01/17/19 at 10:00; Stop 01/17/19 at 10:00; Status DC Non-Formulary Medication ( See Comment Field Below ) SEE LABEL COMMENTS DAILY XX ; Start 01/15/19 at 09:00; Stop 01/15/19 at 11:24; Status DC Prazosin HCl (Minipress) 1 mg QHS PO Last administered on 01/19/19at 20:09; Start 01/12/19 at 21:00 Sumatriptan Succinate (Imitrex) 25 mg DAILY PRN PO MIGRAINE Last administered on 01/17/19at 10:45; Start 01/12/19 at 14:00 Trazodone HCl (Desyrel) 75 mg QHSP PRN PO INSOMNIA Last administered on 01/15/19at 20:08; Start 01/15/19 at 15:30; Stop 01/16/19 at 17:07; Status DC Trazodone HCl (Desyrel) 150 mg QHSP PRN PO INSOMNIA Last administered on 01/12/19at 20:12; Start 01/12/19 at 14:00; Stop 01/15/19 at 15:20; Status DC Venlafaxine HCl (Effexor) 75 mg DAILY PO Last administered on 01/19/19at 08:44; Start 01/13/19 at 09:00 Allergies Coded Allergies: RUBBER (Verified Allergy, Intermediate, 12/20/18) Mushroom (Verified Allergy, Unknown, 12/20/18) Penicillins (Verified Allergy, Unknown, 12/20/18) Sulfa (Sulfonamide Antibiotics) (Verified Allergy, Unknown, 12/20/18) TURKEY (Verified Allergy, Unknown, 12/20/18) emtricitabine (Verified Allergy, Unknown, 12/20/18) latex (Verified Allergy, Unknown, 12/20/18) raltegravir (Verified Allergy, Unknown, 12/20/18) sulfamethoxazole (Verified Allergy, Unknown, 12/20/18) tenofovir (Verified Allergy, Unknown, 12/20/18) tomato (Verified Allergy, Unknown, 12/20/18) trimethoprim (Verified Allergy, Unknown, 12/20/18) LAILA WHITEHEAD MD Jan 19, 2019 21:26
[2019-01-20 06:34] VITALS: BP 109/65
[2019-01-20] MEDS: VENLAFAXINE 37.5 MG TAB PO SCH (09:13)
[2019-01-20] MEDS: LORATADINE 10 MG TAB PO SCH (09:14)
[2019-01-20] MEDS: GABAPENTIN 100 MG CAP PO SCH ×3 (09:14→20:27)
[2019-01-20] MEDS: BENZTROPINE 2 MG TAB PO SCH (09:14)
[2019-01-20] MEDS: HALOPERIDOL 5 MG TAB PO SCH ×2 (09:14→20:26)
[2019-01-20 18:11] VITALS: BP 129/78
[2019-01-20] MEDS: MIRTAZAPINE 15 MG TAB PO SCH (20:27)
[2019-01-20] MEDS: IBUPROFEN 600 MG TAB PO PRN (20:27)
[2019-01-20] MEDS: PRAZOSIN 1 MG CAP PO SCH (20:28)
[2019-01-21 06:25] VITALS: BP 101/47
[2019-01-21] MEDS: VENLAFAXINE 37.5 MG TAB PO SCH (08:37)
[2019-01-21] MEDS: BENZTROPINE 2 MG TAB PO SCH (08:38)
[2019-01-21] MEDS: LORATADINE 10 MG TAB PO SCH (08:38)
[2019-01-21] MEDS: GABAPENTIN 100 MG CAP PO SCH ×3 (08:38→20:20)
[2019-01-21] MEDS: HALOPERIDOL 5 MG TAB PO SCH ×2 (08:38→20:20)
[2019-01-21 18:12] VITALS: BP 118/59
[2019-01-21] MEDS: PRAZOSIN 1 MG CAP PO SCH (20:20)
[2019-01-21] MEDS: MIRTAZAPINE 15 MG TAB PO SCH (20:20)
[2019-01-22 06:37] VITALS: BP 99/54
[2019-01-22] MEDS: LORATADINE 10 MG TAB PO SCH (09:18)
[2019-01-22] MEDS: GABAPENTIN 100 MG CAP PO SCH ×3 (09:18→20:09)
[2019-01-22] MEDS: HALOPERIDOL 5 MG TAB PO SCH ×2 (09:18→20:09)
[2019-01-22] MEDS: VENLAFAXINE 37.5 MG TAB PO SCH (09:19)
[2019-01-22] MEDS: BENZTROPINE 2 MG TAB PO SCH (09:19)
--- NOTE | 2019-01-22 17:11 | MHIPNPDOC ---
[facility] Progress Note Progress Note DATE OF SERVICE: 01/22/19 HISTORY: 18-year-old female with severe personality issues numerous crises, depression, suicidal thoughts and family difficulties. VITAL SIGNS: See below. NEW TEST RESULTS: None. CURRENT MEDICATIONS: See below. MENTAL STATUS EXAMINATION: Patient is a 18-year old female, who is in need of long-term placement due to chronic repetitive readmissions with inability to demonstrate any emotional control. Speech: Is. Normal. Language skills no disturbance. Thought processes including:. No obvious disturbance except for reasoning ability and emotional control. Thought content: Scattered. Abstract reasoning, and computation: Poor abstract reasoning. Description of associations:, Loose associations. Description of abnormal or psychotic thoughts: Thoughts are not psychotic but still many suicidal statements. Judgment:, Poor. Insight:, Poor. Orientation: Intact 3. Recent and remote memory:. Distorted. Attention span and concentration: Poor. Language:. As above. Fund of knowledge: Unclear, as patient distorts her history. Mood: Labile. Affect:, Congruent. DIAGNOSES: 1. Depressive disorder. 2. Borderline personality. 3. Mixed substance abuse. ASSESSMENT:. As above MANAGEMENT PLAN: Long-term treatment recommended. TIME SPENT: 35 minutes. Vital Signs Vital Signs Date Time Temp Pulse Resp B/P (MAP) Pulse Ox O2 Delivery O2 Flow Rate FiO2 01/22/19 06:37 98.9 58 16 99/54 (69) Current Medications Current Medications Acetaminophen (Tylenol Tab) 650 mg Q6HP PRN PO HEADACHE or DISCOMFORT Last administered on 01/16/19at 13:11; Start 01/12/19 at 14:00 Al Hydrox/Mg Hydrox/Simethicone (Mylanta) 30 ml Q4HP PRN PO HEARTBURN/INDIGESTION; Start 01/12/19 at 14:00 Benztropine Mesylate (Cogentin) 2 mg DAILY PO Last administered on 01/22/19at 09:19; Start 01/13/19 at 09:00 Dicyclomine HCl (Bentyl) 10 mg TIDP PRN PO IBS Last administered on 01/15/19at 1 8:43; Start 01/12/19 at 14:00 Diphenhydramine HCl (Benadryl) 50 mg BID PO Last administered on 01/14/19at 20:51; Start 01/12/19 at 21:00; Stop 01/14/19 at 21:00; Status DC Fluticasone Propionate (Flonase 0.05% Nasal [place]) 2 spray DAILY PRN NA NASAL CONGESTION; Start 01/12/19 at 14:00 Gabapentin (Neurontin) 100 mg TID PO Last administered on 01/22/19at 15:52; Start 01/12/19 at 16:00 Haloperidol (Haldol) 5 mg BID PO Last administered on 01/22/19at 09:18; Start 01/12/19 at 21:00 Home Med (Med Rec Complete!) ASDIRECTED XX ; Start 01/12/19 at 12:45; Stop 01/12/19 at 12:45; Status DC Hydroxyzine HCl (Atarax) 50 mg Q6HP PRN PO ANXIETY/AGITATION Last administered on 01/18/19at 17:15; Start 01/12/19 at 20:45 Ibuprofen (Advil) 600 mg Q6H PRN PO PAIN Last administered on 01/20/19at 20:27; Start 01/17/19 at 18:45 Loratadine (Claritin) 10 mg DAILY PO Last administered on 01/22/19at 09:18; Start 01/13/19 at 09:00 Magnesium Hydroxide (Milk Of Magnesia) 30 ml DAILYPRN PRN PO CONSTIPATION; Start 01/12/19 at 14:00 Meloxicam (Mobic) 7.5 mg BID PRN PO PAIN; Start 01/12/19 at 14:00; Stop 01/14/19 at 14:00; Status DC Mirtazapine (Remeron) 15 mg QHS PO Last administered on 01/21/19at 20:20; Start 01/16/19 at 21:00 Non-Formulary Medication ( See Comment Field Below ) SEE COMMENTS SECTION 1T@10 XX ; Start 01/17/19 at 10:00; Stop 01/17/19 at 10:00; Status DC Non-Formulary Medication ( See Comment Field Below ) SEE LABEL COMMENTS DAILY XX ; Start 01/15/19 at 09:00; Stop 01/15/19 at 11:24; Status DC Prazosin HCl (Minipress) 1 mg QHS PO Last administered on 01/21/19at 20:20; Start 01/12/19 at 21:00 Sumatriptan Succinate (Imitrex) 25 mg DAILY PRN PO MIGRAINE Last administered on 01/17/19at 10:45; Start 01/12/19 at 14:00 Trazodone HCl (Desyrel) 75 mg QHSP PRN PO INSOMNIA Last administered on 01/15/19at 20:08; Start 01/15/19 at 15:30; Stop 01/16/19 at 17:07; Status DC Trazodone HCl (Desyrel) 150 mg QHSP PRN PO INSOMNIA Last administered on 01/12/19at 20:12; Start 01/12/19 at 14:00; Stop 01/15/19 at 15:20; Status DC Venlafaxine HCl (Effexor) 75 mg DAILY PO Last administered on 01/22/19at 09:19; Start 01/13/19 at 09:00 Allergies Coded Allergies: RUBBER (Verified Allergy, Intermediate, 12/20/18) Mushroom (Verified Allergy, Unknown, 12/20/18) Penicillins (Verified Allergy, Unknown, 12/20/18) Sulfa (Sulfonamide Antibiotics) (Verified Allergy, Unknown, 12/20/18) TURKEY (Verified Allergy, Unknown, 12/20/18) emtricitabine (Verified Allergy, Unknown, 12/20/18) latex (Verified Allergy, Unknown, 12/20/18) raltegravir (Verified Allergy, Unknown, 12/20/18) sulfamethoxazole (Verified Allergy, Unknown, 12/20/18) tenofovir (Verified Allergy, Unknown, 12/20/18) tomato (Verified Allergy, Unknown, 12/20/18) trimethoprim (Verified Allergy, Unknown, 12/20/18) RANDY NUÑEZ MD Jan 22, 2019 17:11
[2019-01-22 18:00] VITALS: BP_SYST 114; BP_SYST 135; BP_DIAS 68; BP_DIAS 84
[2019-01-22] MEDS: IBUPROFEN 600 MG TAB PO PRN (20:09)
[2019-01-22] MEDS: MIRTAZAPINE 15 MG TAB PO SCH (20:09)
[2019-01-22] MEDS: PRAZOSIN 1 MG CAP PO SCH (20:09)
[2019-01-23 06:40] VITALS: BP 102/53
[2019-01-23] MEDS: GABAPENTIN 100 MG CAP PO SCH ×3 (09:10→20:08)
[2019-01-23] MEDS: LORATADINE 10 MG TAB PO SCH (09:11)
[2019-01-23] MEDS: HALOPERIDOL 5 MG TAB PO SCH ×2 (09:11→20:08)
[2019-01-23] MEDS: BENZTROPINE 2 MG TAB PO SCH (09:11)
[2019-01-23] MEDS: VENLAFAXINE 37.5 MG TAB PO SCH (09:11)
--- NOTE | 2019-01-23 13:42 | MHIPNPDOC ---
[facility] Progress Note Progress Note DATE OF SERVICE: 01/23/19 HISTORY: Numerous admissions for this unstable 18-year-old with multiple mood changes, suicidal statements. VITAL SIGNS: See below. NEW TEST RESULTS: None. CURRENT MEDICATIONS: See below. MENTAL STATUS EXAMINATION: Patient is a 18-year old female, who is today saying she is ready to go home to various friends houses for 14 days of the time. Yesterday she said she wanted to anger herself and be on one-to-one. Speech: Is normal. Language skills are, intact. Thought processes including:. No gross disturbance. Thought content:, Variable. Abstract reasoning, and computation: Poor. Description of associations:. No loose associations. Description of abnormal or psychotic thoughts:. No psychotic thought mood changes and ideation changes are rapid and unpredictable. Judgment:, Poor. Insight:, Poor. Orientation: Intact 3. Recent and remote memory:. Variable. Attention span and concentration: Intact. Language: As above. Fund of knowledge:, Intact. Mood: Good. Affect:, Congruent. DIAGNOSES: 1. Cyclothymic disorder. 2., Personality disorder. 3. Stressors of living situation. ASSESSMENT:. Patient's continued changes of mood and mind and repetitive admissions suggest need for long-term treatment MANAGEMENT PLAN: As above. TIME SPENT: minutes. Vital Signs Vital Signs Date Time Temp Pulse Resp B/P (MAP) Pulse Ox O2 Delivery O2 Flow Rate FiO2 01/23/19 06:40 98.6 55 14 102/53 (69) Current Medications Current Medications Acetaminophen (Tylenol Tab) 650 mg Q6HP PRN PO HEADACHE or DISCOMFORT Last administered on 01/16/19at 13:11; Start 01/12/19 at 14:00 Al Hydrox/Mg Hydrox/Simethicone (Mylanta) 30 ml Q4HP PRN PO HEARTBURN/INDIGESTION; Start 01/12/19 at 14:00 Benztropine Mesylate (Cogentin) 2 mg DAILY PO Last administered on 01/23/19at 09:11; Start 01/13/19 at 09:00 Dicyclomine HCl (Bentyl) 10 mg TIDP PRN PO IBS Last administered on 01/15/19at 18:43; Start 01/12/19 at 14:00 Diphenhydramine HCl (Benadryl) 50 mg BID PO Last administered on 01/14/19at 20:51; Start 01/12/19 at 21:00; Stop 01/14/19 at 21:00; Status DC Fluticasone Propionate (Flonase 0.05% Nasal [place]) 2 spray DAILY PRN NA NASAL CONGESTION; Start 01/12/19 at 14:00 Gabapentin (Neurontin) 100 mg TID PO Last administered on 01/23/19at 09:10; Start 01/12/19 at 16:00 Haloperidol (Haldol) 5 mg BID PO Last administered on 01/23/19at 09:11; Start 01/12/19 at 21:00 Home Med (Med Rec Complete!) ASDIRECTED XX ; Start 01/12/19 at 12:45; Stop 01/12/19 at 12:45; Status DC Hydroxyzine HCl (Atarax) 50 mg Q6HP PRN PO ANXIETY/AGITATION Last administered on 01/18/19at 17:15; Start 01/12/19 at 20:45 Ibuprofen (Advil) 600 mg Q6H PRN PO PAIN Last administered on 01/22/19at 20:09; Start 01/17/19 at 18:45 Loratadine (Claritin) 10 mg DAILY PO Last administered on 01/23/19at 09:11; Start 01/13/19 at 09:00 Magnesium Hydroxide (Milk Of Magnesia) 30 ml DAILYPRN PRN PO CONSTIPATION; Start 01/12/19 at 14:00 Meloxicam (Mobic) 7.5 mg BID PRN PO PAIN; Start 01/12/19 at 14:00; Stop 01/14/19 at 14:00; Status DC Mirtazapine (Remeron) 15 mg QHS PO Last administered on 01/22/19at 20:09; Start 01/16/19 at 21:00 Non-Formulary Medication ( See Comment Field Below ) SEE COMMENTS SECTION 1T@10 XX ; Start 01/17/19 at 10:00; Stop 01/17/19 at 10:00; Status DC Non-Formulary Medication ( See Comment Field Below ) SEE LABEL COMMENTS DAILY XX ; Start 01/15/19 at 09:00; Stop 01/15/19 at 11:24; Status DC Prazosin HCl (Minipress) 1 mg QHS PO Last administered on 6/10/19at 20:09; Start 01/12/19 at 21:00 Sumatriptan Succinate (Imitrex) 25 mg DAILY PRN PO MIGRAINE Last administered on 01/17/19 10:45; Start 01/12/19 at 14:00 Trazodone HCl (Desyrel) 75 mg QHSP PRN PO INSOMNIA Last administered on 01/15/19at 20:08; Start 01/15/19 at 15:30; Stop 01/16/19 at 17:07; Status DC Trazodone HCl (Desyrel) 150 mg QHSP PRN PO INSOMNIA Last administered on 01/12/19at 20:12; Start 01/12/19 at 14:00; Stop 01/15/19 at 15:20; Status DC Venlafaxine HCl (Effexor) 75 mg DAILY PO Last administered on 01/23/19at 09:11; Start 01/13/19 at 09:00 Allergies Coded Allergies: RUBBER (Verified Allergy, Intermediate, 12/20/18) Mushroom (Verified Allergy, Unknown, 12/20/18) Penicillins (Verified Allergy, Unknown, 12/20/18) Sulfa (Sulfonamide Antibiotics) (Verified Allergy, Unknown, 12/20/18) TURKEY (Verified Allergy, Unknown, 12/20/18) emtricitabine (Verified Allergy, Unknown, 12/20/18) latex (Verified Allergy, Unknown, 12/20/18) raltegravir (Verified Allergy, Unknown, 12/20/18) sulfamethoxazole (Verified Allergy, Unknown, 12/20/18) tenofovir (Verified Allergy, Unknown, 12/20/18) tomato (Verified Allergy, Unknown, 12/20/18) trimethoprim (Verified Allergy, Unknown, 12/20/18) RANDY NUÑEZ MD Jan 23, 2019 13:42
[2019-01-23 18:00] VITALS: BP 127/70
[2019-01-23] MEDS: PRAZOSIN 1 MG CAP PO SCH (20:08)
[2019-01-23] MEDS: IBUPROFEN 600 MG TAB PO PRN (20:08)
[2019-01-23] MEDS: MIRTAZAPINE 15 MG TAB PO SCH (20:08)
[2019-01-24 06:46] VITALS: BP 135/69
[2019-01-24] MEDS: LORATADINE 10 MG TAB PO SCH (09:03)
[2019-01-24] MEDS: BENZTROPINE 2 MG TAB PO SCH (09:03)
[2019-01-24] MEDS: HALOPERIDOL 5 MG TAB PO SCH ×2 (09:03→20:07)
[2019-01-24] MEDS: VENLAFAXINE 37.5 MG TAB PO SCH (09:03)
[2019-01-24] MEDS: GABAPENTIN 100 MG CAP PO SCH ×3 (09:03→20:08)
[2019-01-24] MEDS: hydrOXYzine 50 MG TAB PO PRN (13:59)
--- NOTE | 2019-01-24 14:37 | MHIPNPDOC ---
[facility] Progress Note Progress Note DATE OF SERVICE: 01/24/19 HISTORY: 18-year-old female repetitive admissions, explosive and mood labile and frequently and crisis. VITAL SIGNS: See below. NEW TEST RESULTS: None. CURRENT MEDICATIONS: See below. MENTAL STATUS EXAMINATION: Patient is a 18-year old female, who is presently calm and aware that long-term treatment has been recommended. Speech: Is. Normal. Language skills are, intact. Thought processes including:. No gross abnormalities today. Thought content:. No gross abnormalities today. Abstract reasoning, and computation:. Poor abstract reasoning. Description of associations:. Loose associations. Description of abnormal or psychotic thoughts:. No present psychotic thought. As of today. Judgment:, Poor. Insight:, Poor. Orientation:. Oriented 3. Recent and remote memory:. Intact. Attention span and concentration: Improved. Language: As above. Fund of knowledge:, Limited. Mood: Calm. Affect:, Congruent. DIAGNOSES: 1. Cyclothymia. 2. Personality cluster. 3. Stress of living situation. ASSESSMENT:. This 18-year-old female was had repetitive admissions as well as her mother having had repetitive admissions. Treatment plan has been discussed and involved not allowing patient to stay in her room and making sure that she went to group. In addition, any reinforcers leading to repetitive admissions that were considered positive were minimized MANAGEMENT PLAN:. Patient will be placed in long-term care. TIME SPENT: 35 minutes. Vital Signs Vital Signs Date Time Temp Pulse Resp B/P (MAP) Pulse Ox O2 Delivery O2 Flow Rate FiO2 01/24/19 06:46 97.8 60 14 135/69 (91) Current Medications Current Medications Acetaminophen (Tylenol Tab) 650 mg Q6HP PRN PO HEADACHE or DISCOMFORT Last administered on 01/16/19at 13:11; Start 01/12/19 at 14:00 Al Hydrox/Mg Hydrox/Simethicone (Mylanta) 30 ml Q4HP PRN PO HEARTBURN/INDIGESTION; Start 01/12/19 at 14:00 Benztropine Mesylate (Cogentin) 2 mg DAILY PO Last administered on 01/24/19at 09:03; Start 01/13/19 at 09:00 Dicyclomine HCl (Bentyl) 10 mg TIDP PRN PO IBS Last administered on 01/15/19at 18:43; Start 01/12/19 at 14:00 Diphenhydramine HCl (Benadryl) 50 mg BID PO Last administered on 01/14/19at 20:51; Start 01/12/19 at 21:00; Stop 01/14/19 at 21:00; Status DC Fluticasone Propionate (Flonase 0.05% Nasal [place]) 2 spray DAILY PRN NA NASAL CONGESTION; Start 01/12/19 at 14:00 Gabapentin (Neurontin) 100 mg TID PO Last administered on 01/24/19at 09:03; Start 01/12/19 at 16:00 Haloperidol (Haldol) 5 mg BID PO Last administered on 01/24/19at 09:03; Start 01/12/19 at 21:00 Home Med (Med Rec Complete!) ASDIRECTED XX ; Start 01/12/19 at 12:45; Stop 01/12/19 at 12:45; Status DC Hydroxyzine HCl (Atarax) 50 mg Q6HP PRN PO ANXIETY/AGITATION Last administered on 01/24/19at 13:59; Start 01/12/19 at 20:45 Ibuprofen (Advil) 600 mg Q6H PRN PO PAIN Last administered on 01/23/19at 20:08; Start 01/17/19 at 18:45 Loratadine (Claritin) 10 mg DAILY PO Last administered on 01/24/19at 09:03; Start 01/13/19 at 09:00 Magnesium Hydroxide (Milk Of Magnesia) 30 ml DAILYPRN PRN PO CONSTIPATION; Start 01/12/19 at 14:00 Meloxicam (Mobic) 7.5 mg BID PRN PO PAIN; Start 01/12/19 at 14:00; Stop 01/14/19 at 14:00; Status DC Mirtazapine (Remeron) 15 mg QHS PO Last administered on 01/23/19at 20:08; Start 01/16/19 at 21:00 Non-Formulary Medication ( See Comment Field Below ) SEE COMMENTS SECTION 1T@10 XX ; Start 01/17/19 at 10:00; Stop 01/17/19 at 10:00; Status DC Non-Formulary Medication ( See Comment Field Below ) SEE LABEL COMMENTS DAILY XX ; Start 01/15/19 at 09:00; Stop 01/15/19 at 11:24; Status DC Prazosin HCl (Minipress) 1 mg QHS PO Last administered on 01/23/19 20:08; Start 01/12/19 at 21:00 Sumatriptan Succinate (Imitrex) 25 mg DAILY PRN PO MIGRAINE Last administered on 01/17/19 10:45; Start 01/12/19 at 14:00 Trazodone HCl (Desyrel) 75 mg QHSP PRN PO INSOMNIA Last administered on 01/15/19 20:08; Start 01/15/19 at 15:30; Stop 01/16/19 at 17:07; Status DC Trazodone HCl (Desyrel) 150 mg QHSP PRN PO INSOMNIA Last administered on 01/12/19at 20:12; Start 01/12/19 at 14:00; Stop 01/15/19 at 15:20; Status DC Venlafaxine HCl (Effexor) 75 mg DAILY PO Last administered on 01/24/19at 09:03; Start 01/13/19 at 09:00 Allergies Coded Allergies: RUBBER (Verified Allergy, Intermediate, 12/20/18) Mushroom (Verified Allergy, Unknown, 12/20/18) Penicillins (Verified Allergy, Unknown, 12/20/18) Sulfa (Sulfonamide Antibiotics) (Verified Allergy, Unknown, 12/20/18) TURKEY (Verified Allergy, Unknown, 12/20/18) emtricitabine (Verified Allergy, Unknown, 12/20/18) latex (Verified Allergy, Unknown, 12/20/18) raltegravir (Verified Allergy, Unknown, 12/20/18) sulfamethoxazole (Verified Allergy, Unknown, 12/20/18) tenofovir (Verified Allergy, Unknown, 12/20/18) tomato (Verified Allergy, Unknown, 12/20/18) trimethoprim (Verified Allergy, Unknown, 12/20/18) RANDY NUÑEZ MD Jan 24, 2019 14:37
[2019-01-24 18:00] VITALS: BP 122/64
[2019-01-24] MEDS: MIRTAZAPINE 15 MG TAB PO SCH (20:07)
[2019-01-24] MEDS: PRAZOSIN 1 MG CAP PO SCH (20:08)
[2019-01-24] MEDS: IBUPROFEN 600 MG TAB PO PRN (20:08)
[2019-01-25 07:17] VITALS: BP 118/64
[2019-01-25] MEDS: LORATADINE 10 MG TAB PO SCH (08:51)
[2019-01-25] MEDS: HALOPERIDOL 5 MG TAB PO SCH ×2 (08:51→20:06)
[2019-01-25] MEDS: BENZTROPINE 2 MG TAB PO SCH (08:51)
[2019-01-25] MEDS: VENLAFAXINE 37.5 MG TAB PO SCH (08:51)
[2019-01-25] MEDS: GABAPENTIN 100 MG CAP PO SCH ×3 (08:51→20:05)
[2019-01-25] MEDS: SUMAtriptan SUCCINATE 25 MG TAB PO PRN (10:00)
--- NOTE | 2019-01-25 10:31 | MHIPNPDOC ---
[facility] Progress Note Progress Note DATE OF SERVICE: 01/25/19 HISTORY: 18-year-old female with numerous admissions and behavioral difficulties. VITAL SIGNS: See below. NEW TEST RESULTS: . CURRENT MEDICATIONS: See below. MENTAL STATUS EXAMINATION: Patient is a 18-year old female, who is improving significantly. She is not demonstrating any behavioral problems or outbursts and has been cooperative with unit rules. Speech: Is. Normal. Language skills are intact. Thought processes including:. No gross disturbance. Thought content:. No gross disturbance. Abstract reasoning, and computation:, Minimal. Description of associations:no Loose associations. Description of abnormal or psychotic thoughts:. No gross psychotic thought. At this time. Judgment:. Good. Insight:, Improved. Orientation: 3. Recent and remote memory: Intact. Attention span and concentration: Improved. Language: As above. Fund of knowledge:. Full. Mood: Euthymic. Affect:, Pleasant and congruent. DIAGNOSES: 1. Cyclothymia. 2. Personality cluster. 3. Stressors of living situation. ASSESSMENT: Patient is significantly improved over admission and per past admissions. Patient is lactating to most likely to Haldol and dosage is slightly reduced. Behavioral program, which motivated further participation in unit has continued to be successful and patient is now allowed back in her room during the day MANAGEMENT PLAN:. Continue treatment plan and continue long-term treatment goals. TIME SPENT: 35 minutes. Vital Signs Vital Signs Date Time Temp Pulse Resp B/P (MAP) Pulse Ox O2 Delivery O2 Flow Rate FiO2 01/25/19 07:17 98.0 50 14 118/64 (82) Current Medications Current Medications Acetaminophen (Tylenol Tab) 650 mg Q6HP PRN PO HEADACHE or DISCOMFORT Last administered on 01/16/19at 13:11; Start 01/12/19 at 14:00 Al Hydrox/Mg Hydrox/Simethicone (Mylanta) 30 ml Q4HP PRN PO HEARTBURN/INDIGESTION; Start 01/12/19 at 14:00 Benztropine Mesylate (Cogentin) 2 mg DAILY PO Last administered on 01/25/19at 08:51; Start 01/13/19 at 09:00 Dicyclomine HCl (Bentyl) 10 mg TIDP PRN PO IBS Last administered on 01/15/19at 18:43; Start 01/12/19 at 14:00 Diphenhydramine HCl (Benadryl) 50 mg BID PO Last administered on 01/14/19at 20:51; Start 01/12/19 at 21:00; Stop 01/14/19 at 21:00; Status DC Fluticasone Propionate (Flonase 0.05% Nasal [place]) 2 spray DAILY PRN NA NASAL CONGESTION; Start 01/12/19 at 14:00 Gabapentin (Neurontin) 100 mg TID PO Last administered on 01/25/19at 08:51; Start 01/12/19 at 16:00 Haloperidol (Haldol) 2.5 mg QHS PO ; Start 01/25/19 at 21:00 Haloperidol (Haldol) 5 mg BID PO Last administered on 01/25/19 08:51; Start 01/12/19 at 21:00; Stop 01/25/19 at 10:04; Status DC Haloperidol (Haldol) 5 mg QAM PO ; Start 01/26/19 at 09:00 Home Med (Med Rec Complete!) ASDIRECTED XX ; Start 01/12/19 at 12:45; Stop 12/15 09/02 at 12:45; Status DC Hydroxyzine HCl (Atarax) 50 mg Q6HP PRN PO ANXIETY/AGITATION Last administered on 01/24/19at 13:59; Start 01/12/19 at 20:45 Ibuprofen (Advil) 600 mg Q6H PRN PO PAIN Last administered on 01/24/19at 20:08; Start 01/17/19 at 18:45 Loratadine (Claritin) 10 mg DAILY PO Last administered on 01/25/19at 08:51; Start 01/13/19 at 09:00 Magnesium Hydroxide (Milk Of Magnesia) 30 ml DAILYPRN PRN PO CONSTIPATION; Start 01/12/19 at 14:00 Meloxicam (Mobic) 7.5 mg BID PRN PO PAIN; Start 01/12/19 at 14:00; Stop 01/14/19 at 14:00; Status DC Mirtazapine (Remeron) 15 mg QHS PO Last administered on 01/24/19at 20:07; Start 01/16/19 at 21:00 Non-Formulary Medication ( See Comment Field Below ) SEE COMMENTS SECTION 1T@10 XX ; Start 01/17/19 at 10:00; Stop 01/17/19 at 10:00; Status DC Non-Formulary Medication ( See Comment Field Below ) SEE LABEL COMMENTS DAILY XX ; Start 01/15/19 at 09:00; Stop 01/15/19 at 11:24; Status DC Prazosin HCl (Minipress) 1 mg QHS PO Last administered on 01/24/19at 20:08; Start 01/12/19 at 21:00 Sumatriptan Succinate (Imitrex) 25 mg DAILY PRN PO MIGRAINE Last administered on 01/25/19at 10:00; Start 01/12/19 at 14:00 Trazodone HCl (Desyrel) 75 mg QHSP PRN PO INSOMNIA Last administered on 01/15/19at 20:08; Start 01/15/19 at 15:30; Stop 01/16/19 at 17:07; Status DC Trazodone HCl (Desyrel) 150 mg QHSP PRN PO INSOMNIA Last administered on 01/12/19at 20:12; Start 01/12/19 at 14:00; Stop 01/15/19 at 15:20; Status DC Venlafaxine HCl (Effexor) 75 mg DAILY PO Last administered on 01/25/19at 08:51; Start 01/13/19 at 09:00 Allergies Coded Allergies: RUBBER (Verified Allergy, Intermediate, 12/20/18) Mushroom (Verified Allergy, Unknown, 12/20/18) Penicillins (Verified Allergy, Unknown, 12/20/18) Sulfa (Sulfonamide Antibiotics) (Verified Allergy, Unknown, 12/20/18) TURKEY (Verified Allergy, Unknown, 12/20/18) emtricitabine (Verified Allergy, Unknown, 12/20/18) latex (Verified Allergy, Unknown, 12/20/18) raltegravir (Verified Allergy, Unknown, 12/20/18) sulfamethoxazole (Verified Allergy, Unknown, 12/20/18) tenofovir (Verified Allergy, Unknown, 12/20/18) tomato (Verified Allergy, Unknown, 12/20/18) trimethoprim (Verified Allergy, Unknown, 12/20/18) RANDY NUÑEZ MD Jan 25, 2019 10:31
[2019-01-25] MEDS: CYCLOBENZAPRINE 5MG TABLET PO PRN ×2 (12:47→20:06)
[2019-01-25 18:00] VITALS: BP 101/66
[2019-01-25] MEDS: MIRTAZAPINE 15 MG TAB PO SCH (20:05)
[2019-01-25] MEDS: PRAZOSIN 1 MG CAP PO SCH (20:05)
[2019-01-25] MEDS: IBUPROFEN 600 MG TAB PO PRN (20:06)
[2019-01-26 07:00] VITALS: BP 92/54
[2019-01-26] MEDS: GABAPENTIN 100 MG CAP PO SCH ×3 (09:02→20:24)
[2019-01-26] MEDS: BENZTROPINE 2 MG TAB PO SCH (09:02)
[2019-01-26] MEDS: HALOPERIDOL 5 MG TAB PO SCH ×2 (09:02→20:24)
[2019-01-26] MEDS: VENLAFAXINE 37.5 MG TAB PO SCH (09:02)
[2019-01-26] MEDS: LORATADINE 10 MG TAB PO SCH (09:02)
--- NOTE | 2019-01-26 14:27 | MHIPNPDOC ---
[facility] Progress Note Progress Note DATE OF SERVICE: 01/26/19 HISTORY: Repetitive admissions of this 18-year-old female who has demonstrated cyclothymia and personality difficulties. [facility] and her behavior on the unit has improved. VITAL SIGNS: See below. NEW TEST RESULTS: None. CURRENT MEDICATIONS: See below. MENTAL STATUS EXAMINATION: Patient is a 18-year old female, who is presently taking Haldol with no significant side effects and having no significant behavioral difficulties on the unit. Speech: Is. Normal. Language skills are, intact. Thought processes including: denies hallucinations, delusions, obsessions, compulsions or phobias. Thought content: No gross abnormalities. Abstract reasoning, and computation:, Minimal. Description of associations:. No loose associations. Description of abnormal or psychotic thoughts:. No gross abnormal or psychotic thoughts. Judgment:, Improving. Insight:, Improving. Orientation: 3 intact. Recent and remote memory:. No noticeable difficulties. Attention span and concentration:. No disturbance at this time. Language: As above. Fund of knowledge:. Reasonable. Mood: Improved. Good. Affect:, Congruent. DIAGNOSES: 1. Cyclothymia. 2., Personality difficulties, borderline type. 3.. Family stressors. Mixed substance abuse ASSESSMENT: As above MANAGEMENT PLAN: Patient will be going to long-term treatment. TIME SPENT: 35 minutes. Vital Signs Vital Signs Date Time Temp Pulse Resp B/P (MAP) Pulse Ox O2 Delivery O2 Flow Rate FiO2 01/26/19 07:00 97.8 75 14 92/54 (67) Current Medications Current Medications Acetaminophen (Tylenol Tab) 650 mg Q6HP PRN PO HEADACHE or DISCOMFORT Last administered on 01/16/19at 13:11; Start 01/12/19 at 14:00 Al Hydrox/Mg Hydrox/Simethicone (Mylanta) 30 ml Q4HP PRN PO HEARTBURN/INDIGESTION; Start 01/12/19 at 14:00 Benztropine Mesylate (Cogentin) 2 mg DAILY PO Last administered on 01/26/19at 09:02; Start 01/13/19 at 09:00 Cyclobenzaprine HCl (Flexeril) 5 mg Q6HP PRN PO SPASMS Last administered on 01/25/19at 20:06; Start 01/25/19 at 10:30 Dicyclomine HCl (Bentyl) 10 mg TIDP PRN PO IBS Last administered on 01/15/19 18:43; Start 01/12/19 at 14:00 Diphenhydramine HCl (Benadryl) 50 mg BID PO Last administered on 01/14/19 20:51; Start 01/12/19 at 21:00; Stop 01/14/19 at 21:00; Status DC Fluticasone Propionate (Flonase 0.05% Nasal [place]) 2 spray DAILY PRN NA NASAL CONGESTION; Start 01/12/19 at 14:00 Gabapentin (Neurontin) 100 mg TID PO Last administered on 01/26/19 09:02; Start 01/12/19 at 16:00 Haloperidol (Haldol) 2.5 mg QHS PO Last administered on 01/25/19 20:06; Start 01/25/19 at 21:00 Haloperidol (Haldol) 5 mg BID PO Last administered on 01/25/19 08:51; Start 01/12/19 at 21:00; Stop 01/25/19 at 10:04; Status DC Haloperidol (Haldol) 5 mg QAM PO Last administered on 01/26/19 09:02; Start 01/26/19 at 09:00 Home Med (Med Rec Complete!) ASDIRECTED XX ; Start 01/12/19 at 12:45; Stop 01/12/19 at 12:45; Status DC Hydroxyzine HCl (Atarax) 50 mg Q6HP PRN PO ANXIETY/AGITATION Last administered on 01/24/19 13:59; Start 01/12/19 at 20:45 Ibuprofen (Advil) 600 mg Q6H PRN PO PAIN Last administered on 01/25/19 20:06; Start 01/17/19 at 18:45 Loratadine (Claritin) 10 mg DAILY PO Last administered on 01/26/19 09:02; Start 01/13/19 at 09:00 Magnesium Hydroxide (Milk Of Magnesia) 30 ml DAILYPRN PRN PO CONSTIPATION; Start 01/12/19 at 14:00 Meloxicam (Mobic) 7.5 mg BID PRN PO PAIN; Start 01/12/19 at 14:00; Stop 01/14/19 at 14:00; Status DC Mirtazapine (Remeron) 15 mg QHS PO Last administered on 01/25/19at 20:05; Start 01/16/19 at 21:00 Non-Formulary Medication ( See Comment Field Below ) SEE COMMENTS SECTION 1T@10 XX ; Start 01/17/19 at 10:00; Stop 01/17/19 at 10:00; Status DC Non-Formulary Medication ( See Comment Field Below ) SEE LABEL COMMENTS DAILY XX ; Start 01/15/19 at 09:00; Stop 01/15/19 at 11:24; Status DC Prazosin HCl (Minipress) 1 mg QHS PO Last administered on 01/25/19at 20:05; Start 01/12/19 at 21:00 Sumatriptan Succinate (Imitrex) 25 mg DAILY PRN PO MIGRAINE Last administered on 01/25/19at 10:00; Start 01/12/19 at 14:00 Trazodone HCl (Desyrel) 75 mg QHSP PRN PO INSOMNIA Last administered on 01/15/19at 20:08; Start 01/15/19 at 15:30; Stop 01/16/19 at 17:07; Status DC Trazodone HCl (Desyrel) 150 mg QHSP PRN PO INSOMNIA Last administered on 01/12/19at 20:12; Start 01/12/19 at 14:00; Stop 01/15/19 at 15:20; Status DC Venlafaxine HCl (Effexor) 75 mg DAILY PO Last administered on 01/26/19at 09:02; Start 01/13/19 at 09:00 Allergies Coded Allergies: RUBBER (Verified Allergy, Intermediate, 12/20/18) Mushroom (Verified Allergy, Unknown, 12/20/18) Penicillins (Verified Allergy, Unknown, 12/20/18) Sulfa (Sulfonamide Antibiotics) (Verified Allergy, Unknown, 12/20/18) TURKEY (Verified Allergy, Unknown, 12/20/18) emtricitabine (Verified Allergy, Unknown, 12/20/18) latex (Verified Allergy, Unknown, 12/20/18) raltegravir (Verified Allergy, Unknown, 12/20/18) sulfamethoxazole (Verified Allergy, Unknown, 12/20/18) tenofovir (Verified Allergy, Unknown, 12/20/18) tomato (Verified Allergy, Unknown, 12/20/18) trimethoprim (Verified Allergy, Unknown, 12/20/18) RANDY NUÑEZ MD Jan 26, 2019 14:26
[2019-01-26 18:46] VITALS: BP 129/58
[2019-01-26] MEDS: IBUPROFEN 600 MG TAB PO PRN (19:57)
[2019-01-26] MEDS: CYCLOBENZAPRINE 5MG TABLET PO PRN (19:57)
[2019-01-26] MEDS: MIRTAZAPINE 15 MG TAB PO SCH (20:24)
[2019-01-26] MEDS: PRAZOSIN 1 MG CAP PO SCH (20:24)
[2019-01-26] MEDS: PILL CUTTER 1 EACH XX PRN (20:25)
[2019-01-27 07:05] VITALS: BP 105/52
[2019-01-27] MEDS: VENLAFAXINE 37.5 MG TAB PO SCH (08:48)
[2019-01-27] MEDS: LORATADINE 10 MG TAB PO SCH (08:48)
[2019-01-27] MEDS: HALOPERIDOL 5 MG TAB PO SCH ×2 (08:48→20:14)
[2019-01-27] MEDS: BENZTROPINE 2 MG TAB PO SCH (08:48)
[2019-01-27] MEDS: GABAPENTIN 100 MG CAP PO SCH ×3 (08:48→20:11)
[2019-01-27] MEDS: CYCLOBENZAPRINE 5MG TABLET PO PRN ×2 (09:43→20:13)
[2019-01-27] MEDS: SUMAtriptan SUCCINATE 25 MG TAB PO PRN ×2 (09:43→20:13)
--- NOTE | 2019-01-27 14:06 | MHIPNPDOC ---
[facility] Progress Note Progress Note DATE OF SERVICE: 01/27/19 HISTORY: 18-year-old female with significant cyclothymia mood changes, explosiveness and repetitive admissions. VITAL SIGNS: See below. NEW TEST RESULTS: None. CURRENT MEDICATIONS: See below. MENTAL STATUS EXAMINATION: Patient is a 18-year old female, who is pleasant and calm today. Speech: Is. Normal. Language skills are. No gross abnormalities. Thought processes including:. No hallucinations, delusions, obsessions, compulsions or phobias noted. Thought content: As above. Abstract reasoning, and computation:, Minimal. Abstract reasoning. Description of associations:, No loose associations. Description of abnormal or psychotic thoughts:. No abnormal or psychotic thought noted. Judgment: Improved. Insight: Improved. Orientation:, Intact 3. Recent and remote memory:. No distortion of recent or remote memory. Attention span and concentration:. No disturbance of attention span or concentration. At this time. Language: As above. Fund of knowledge:, Full. Mood:, Euthymic. Affect:, Congruent. DIAGNOSES: 1. Cyclothymia. 2. Borderline personality traits. 3. Substance abuse. ASSESSMENT:, Much improved with present strategy MANAGEMENT PLAN: Will be going to long-term care. TIME SPENT: 35 minutes. Vital Signs Vital Signs Date Time Temp Pulse Resp B/P (MAP) Pulse Ox O2 Delivery O2 Flow Rate FiO2 01/27/19 07:05 98.1 63 14 105/52 (69) Current Medications Current Medications Acetaminophen (Tylenol Tab) 650 mg Q6HP PRN PO HEADACHE or DISCOMFORT Last adm inistered on 01/16/19at 13:11; Start 01/12/19 at 14:00 Al Hydrox/Mg Hydrox/Simethicone (Mylanta) 30 ml Q4HP PRN PO HEARTBURN/KAYLAH GESTION; Start 01/12/19 at 14:00 Benztropine Mesylate (Cogentin) 2 mg DAILY PO Last administered on 01/27/19at 08:48; Start 01/13/19 at 09:00 Cyclobenzaprine HCl (Flexeril) 5 mg Q6HP PRN PO SPASMS Last administered on 01/27/19 09:43; Start 01/25/19 at 10:30 Dicyclomine HCl (Bentyl) 10 mg TIDP PRN PO IBS Last administered on 01/15/19at 18:43; Start 01/12/19 at 14:00 Diphenhydramine HCl (Benadryl) 50 mg BID PO Last administered on 01/14/19 20:51; Start 01/12/19 at 21:00; Stop 01/14/19 at 21:00; Status DC Fluticasone Propionate (Flonase 0.05% Nasal [place]) 2 spray DAILY PRN NA NASAL CONGESTION; Start 01/12/19 at 14:00 Gabapentin (Neurontin) 100 mg TID PO Last administered on 01/27/19 08:48; Start 01/12/19 at 16:00 Haloperidol (Haldol) 2.5 mg QHS PO Last administered on 01/26/19 20:24; Start 01/25/19 at 21:00 Haloperidol (Haldol) 5 mg BID PO Last administered on 01/25/19 08:51; Start 01/12/19 at 21:00; Stop 01/25/19 at 10:04; Status DC Haloperidol (Haldol) 5 mg QAM PO Last administered on 01/27/19 08:48; Start 01/26/19 at 09:00 Home Med (Med Rec Complete!) ASDIRECTED XX ; Start 01/12/19 at 12:45; Stop 01/12/19 at 12:45; Status DC Hydroxyzine HCl (Atarax) 50 mg Q6HP PRN PO ANXIETY/AGITATION Last administered on 01/24/19 13:59; Start 01/12/19 at 20:45 Ibuprofen (Advil) 600 mg Q6H PRN PO PAIN Last administered on 01/26/19 19:57; Start 01/17/19 at 18:45 Loratadine (Claritin) 10 mg DAILY PO Last administered on 01/27/19 08:48; Start 01/13/19 at 09:00 Magnesium Hydroxide (Milk Of Magnesia) 30 ml DAILYPRN PRN PO CONSTIPATION; Start 01/12/19 at 14:00 Meloxicam (Mobic) 7.5 mg BID PRN PO PAIN; Start 01/12/19 at 14:00; Stop 01/14/19 at 14:00; Status DC Mirtazapine (Remeron) 15 mg QHS PO Last administered on 01/26/19 20:24; Start 01/16/19 at 21:00 Non-Formulary Medication ( See Comment Field Below ) SEE COMMENTS SECTION 1T@10 XX ; Start 01/17/19 at 10:00; Stop 01/17/19 at 10:00; Status DC Non-Formulary Medication ( See Comment Field Below ) SEE LABEL COMMENTS DAILY XX ; Start 01/15/19 at 09:00; Stop 01/15/19 at 11:24; Status DC Prazosin HCl (Minipress) 1 mg QHS PO Last administered on 01/26/19at 20:24; Start 01/12/19 at 21:00 Sumatriptan Succinate (Imitrex) 25 mg DAILY PRN PO MIGRAINE Last administered on 01/27/19at 09:43; Start 01/12/19 at 14:00 Trazodone HCl (Desyrel) 75 mg QHSP PRN PO INSOMNIA Last administered on 01/15/19at 20:08; Start 01/15/19 at 15:30; Stop 01/16/19 at 17:07; Status DC Trazodone HCl (Desyrel) 150 mg QHSP PRN PO INSOMNIA Last administered on 01/12/19at 20:12; Start 01/12/19 at 14:00; Stop 01/15/19 at 15:20; Status DC Venlafaxine HCl (Effexor) 75 mg DAILY PO Last administered on 01/27/19at 08:48; Start 01/13/19 at 09:00 Allergies Coded Allergies: RUBBER (Verified Allergy, Intermediate, 12/20/18) Mushroom (Verified Allergy, Unknown, 12/20/18) Penicillins (Verified Allergy, Unknown, 12/20/18) Sulfa (Sulfonamide Antibiotics) (Verified Allergy, Unknown, 12/20/18) TURKEY (Verified Allergy, Unknown, 12/20/18) emtricitabine (Verified Allergy, Unknown, 12/20/18) latex (Verified Allergy, Unknown, 12/20/18) raltegravir (Verified Allergy, Unknown, 12/20/18) sulfamethoxazole (Verified Allergy, Unknown, 12/20/18) tenofovir (Verified Allergy, Unknown, 12/20/18) tomato (Verified Allergy, Unknown, 12/20/18) trimethoprim (Verified Allergy, Unknown, 12/20/18) RANDY NUÑEZ MD Jan 27, 2019 14:06
[2019-01-27 18:00] VITALS: BP 129/61
[2019-01-27] MEDS: IBUPROFEN 600 MG TAB PO PRN (20:13)
[2019-01-27] MEDS: MIRTAZAPINE 15 MG TAB PO SCH (20:13)
[2019-01-27] MEDS: PRAZOSIN 1 MG CAP PO SCH (20:13)
[2019-01-27] MEDS: PILL CUTTER 1 EACH XX PRN (20:14)
[2019-01-28 06:46] VITALS: BP 102/57
[2019-01-28] MEDS: LORATADINE 10 MG TAB PO SCH (08:45)
[2019-01-28] MEDS: HALOPERIDOL 5 MG TAB PO SCH ×2 (08:45→20:05)
[2019-01-28] MEDS: GABAPENTIN 100 MG CAP PO SCH ×3 (08:45→20:04)
[2019-01-28] MEDS: BENZTROPINE 2 MG TAB PO SCH (08:45)
[2019-01-28] MEDS: VENLAFAXINE 37.5 MG TAB PO SCH (08:45)
--- NOTE | 2019-01-28 10:15 | MHIPNPDOC ---
[facility] Progress Note Progress Note DATE OF SERVICE: 01/28/19 HISTORY: Patient states she slept poorly last night due to migraines. She is agreeable to long-term care and has not shown any further explosiveness or difficulties on the unit. VITAL SIGNS: See below. NEW TEST RESULTS:, None. CURRENT MEDICATIONS: See below. MENTAL STATUS EXAMINATION: Patient is a 18-year old female, who is cyclothymic and explosive with repetitive admissions. Has been calm for several days Speech: Is intact. Normal. Language skills are. No gross abnormalities. Thought processes including:. No gross abnormalities. Denies hallucinations, delusions, obsessions, compulsions, phobias. Thought content:, As above. Abstract reasoning, and computation:, Minimal. Abstract reasoning. Description of associations:, No loose associations. Description of abnormal or psychotic thoughts:. No gross psychotic thought. Judgment:, Improved. Insight:. Fair. Orientation:, Intact 3. Recent and remote memory:. No disturbance. Attention span and concentration: Intact. Language:. No disturbance. Fund of knowledge:. Full. Mood: Good. Affect:, Congruent. DIAGNOSES: 1.. Cyclothymic disorder, bipolar 2. 2.. Borderline personality traits. . ASSESSMENT: As above. Long-term treatment will be recommended due to repetitive admissions MANAGEMENT PLAN: As above. TIME SPENT:, 35 minutes. Vital Signs Vital Signs Date Time Temp Pulse Resp B/P (MAP) Pulse Ox O2 Delivery O2 Flow Rate FiO2 01/28/19 06:46 99.6 60 20 102/57 (72) Current Medications Current Medications Acetaminophen (Tylenol Tab) 650 mg Q6HP PRN PO HEADACHE or DISCOMFORT Last administered on 01/16/19at 13:11; Start 01/12/19 at 14:00 Al Hydrox/Mg Hydrox/Simethicone (Mylanta) 30 ml Q4HP PRN PO HEARTBURN/INDIGESTION; Start 01/12/19 at 14:00 Benztropine Mesylate (Cogentin) 2 mg DAILY PO Last administered on 01/28/19at 08:45; Start 01/13/19 at 09:00 Cyclobenzaprine HCl (Flexeril) 5 mg Q6HP PRN PO SPASMS Last administered on 01/27/19at 20:13; Start 01/25/19 at 10:30 Dicyclomine HCl (Bentyl) 10 mg TIDP PRN PO IBS Last administered on 01/15/19 18:43; Start 01/12/19 at 14:00 Diphenhydramine HCl (Benadryl) 50 mg BID PO Last administered on 01/14/19 20:51; Start 01/12/19 at 21:00; Stop 01/14/19 at 21:00; Status DC Fluticasone Propionate (Flonase 0.05% Nasal [place]) 2 spray DAILY PRN NA NASAL CONGESTION; Start 01/12/19 at 14:00 Gabapentin (Neurontin) 100 mg TID PO Last administered on 01/28/19 08:45; Start 01/12/19 at 16:00 Haloperidol (Haldol) 2.5 mg QHS PO Last administered on 01/27/19 20:14; Start 01/25/19 at 21:00 Haloperidol (Haldol) 5 mg BID PO Last administered on 01/25/19 08:51; Start 01/12/19 at 21:00; Stop 01/25/19 at 10:04; Status DC Haloperidol (Haldol) 5 mg QAM PO Last administered on 01/28/19 08:45; Start 01/26/19 at 09:00 Home Med (Med Rec Complete!) ASDIRECTED XX ; Start 01/12/19 at 12:45; Stop 01/12/19 at 12:45; Status DC Hydroxyzine HCl (Atarax) 50 mg Q6HP PRN PO ANXIETY/AGITATION Last administered on 01/24/19at 13:59; Start 01/12/19 at 20:45 Ibuprofen (Advil) 600 mg Q6H PRN PO PAIN Last administered on 01/27/19 20:13; Start 01/17/19 at 18:45 Loratadine (Claritin) 10 mg DAILY PO Last administered on 01/28/19 08:45; Start 01/13/19 at 09:00 Magnesium Hydroxide (Milk Of Magnesia) 30 ml DAILYPRN PRN PO CONSTIPATION; Start 01/12/19 at 14:00 Meloxicam (Mobic) 7.5 mg BID PRN PO PAIN; Start 01/12/19 at 14:00; Stop 01/14/19 at 14:00; Status DC Mirtazapine (Remeron) 15 mg QHS PO Last administered on 01/27/19at 20:13; Start 01/16/19 at 21:00 Non-Formulary Medication ( See Comment Field Below ) SEE COMMENTS SECTION 1T@10 XX ; Start 01/17/19 at 10:00; Stop 01/17/19 at 10:00; Status DC Non-Formulary Medication ( See Comment Field Below ) SEE LABEL COMMENTS DAILY XX ; Start 01/15/19 at 09:00; Stop 01/15/19 at 11:24; Status DC Prazosin HCl (Minipress) 1 mg QHS PO Last administered on 01/27/19at 20:13; Start 01/12/19 at 21:00 Sumatriptan Succinate (Imitrex) 25 mg DAILY PRN PO MIGRAINE Last administered on 01/27/19at 20:13; Start 01/12/19 at 14:00 Trazodone HCl (Desyrel) 75 mg QHSP PRN PO INSOMNIA Last administered on 01/15/19at 20:08; Start 01/15/19 at 15:30; Stop 01/16/19 at 17:07; Status DC Trazodone HCl (Desyrel) 150 mg QHSP PRN PO INSOMNIA Last administered on 01/12/19at 20:12; Start 01/12/19 at 14:00; Stop 01/15/19 at 15:20; Status DC Venlafaxine HCl (Effexor) 75 mg DAILY PO Last administered on 01/28/19at 08:45; Start 01/13/19 at 09:00 Allergies Coded Allergies: RUBBER (Verified Allergy, Intermediate, 12/20/18) Mushroom (Verified Allergy, Unknown, 12/20/18) Penicillins (Verified Allergy, Unknown, 12/20/18) Sulfa (Sulfonamide Antibiotics) (Verified Allergy, Unknown, 12/20/18) TURKEY (Verified Allergy, Unknown, 12/20/18) emtricitabine (Verified Allergy, Unknown, 12/20/18) latex (Verified Allergy, Unknown, 12/20/18) raltegravir (Verified Allergy, Unknown, 12/20/18) sulfamethoxazole (Verified Allergy, Unknown, 12/20/18) tenofovir (Verified Allergy, Unknown, 12/20/18) tomato (Verified Allergy, Unknown, 12/20/18) trimethoprim (Verified Allergy, Unknown, 12/20/18) RANDY NUÑEZ MD Jan 28, 2019 10:15
[2019-01-28 18:00] VITALS: BP 131/69
[2019-01-28] MEDS: MIRTAZAPINE 15 MG TAB PO SCH (20:04)
[2019-01-28] MEDS: PRAZOSIN 1 MG CAP PO SCH (20:04)
[2019-01-28] MEDS: CYCLOBENZAPRINE 5MG TABLET PO PRN (20:05)
[2019-01-28] MEDS: IBUPROFEN 600 MG TAB PO PRN (20:05)
[2019-01-29 06:11] VITALS: BP 119/65
[2019-01-29] MEDS: HALOPERIDOL 5 MG TAB PO SCH ×2 (08:52→20:04)
[2019-01-29] MEDS: GABAPENTIN 100 MG CAP PO SCH ×3 (08:52→20:03)
[2019-01-29] MEDS: VENLAFAXINE 37.5 MG TAB PO SCH (08:52)
[2019-01-29] MEDS: LORATADINE 10 MG TAB PO SCH (08:52)
[2019-01-29] MEDS: BENZTROPINE 2 MG TAB PO SCH (08:52)
--- NOTE | 2019-01-29 16:56 | MHIPNPDOC ---
[facility] Progress Note Progress Note DATE OF SERVICE: 01/29/19 HISTORY: As per ED report: "Patient states she is depressed and suicidal, does not think her meds are working because she has been taking them and she still f eels suicidal. She states she has thoughts of jumping off a bridge." Patient was discharged from inpatient mental health unit on 01/09/2019. She has had multiple psychiatric admissions to this hospital in other facilities for psychiatric treatment and multiple times and had presented for admission just days after discharge. Patient denies auditory or visual hallucinations, she de nies past suicide attempts/self-harm. She states ongoing family issues as a reason for her depression/suicidal ideation and she will not contract for safety. In talking with the patient today, she does not have any suicidal or homicidal ideations. She states that she had a migraine today. Patient has been going to group therapy sessions except for yoga early in the morning and medi tation. She states that she likes to do meditation on her own during quiet time while reading her book. VITAL SIGNS: See below. NEW TEST RESULTS: See below. CURRENT MEDICATIONS: See below. MENTAL STATUS EXAMINATION: Patient is a 18-year old female, who is alert, cooperative, dressed in her own clothing Speech: Is coherent, normal in tone, rate, rhythm and volume. Language skills are good. Thought processes including: Linear, coherent. Thought content: She denies active suicidal ideation at this time, she denies homicidal ideations at this time. Description of abnormal or psychotic thoughts: Denies. Judgment: Poor. Insight: Poor. Orientation: 3. Recent and remote memory: Fair. Attention span and concentration: good. Language: Average. Fund of knowledge: Average. Mood: Anxious. Affect: Congruent with mood, anxious, full, appropriate, congruent. DIAGNOSES: 1. Bipolar 2 disorder. 2. Borderline Personality disorder. ASSESSMENT:Patient is doing well today. She is excited to be going to [facility] tomorrow. She looks forward to learning more coping skills and hopefully getting better after time there. She says she likes that place better because it is a building that is dedicated to mental health vs a wing in a larger building. She has been to [facility] as a visitor while visiting her mother. MANAGEMENT PLAN: Continue current treatment. Plan to transfer to [facility] tomorrow. TIME SPENT: 20 minutes. Vital Signs Vital Signs Date Time Temp Pulse Resp B/P (MAP) Pulse Ox O2 Delivery O2 Flow Rate FiO2 01/29/19 06:11 99.4 79 18 119/65 (83) Current Medications Current Medications Acetaminophen (Tylenol Tab) 650 mg Q6HP PRN PO HEADACHE or DISCOMFORT Last administered on 01/16/19 13:11; Start 01/12/19 at 14:00 Al Hydrox/Mg Hydrox/Simethicone (Mylanta) 30 ml Q4HP PRN PO HEARTBURN/INDIGESTION; Start 01/12/19 at 14:00 Benztropine Mesylate (Cogentin) 2 mg DAILY PO Last administered on 01/29/19 08:52; Start 01/13/19 at 09:00 Cyclobenzaprine HCl (Flexeril) 5 mg Q6HP PRN PO SPASMS Last administered on 01/28/19 20:05; Start 01/25/19 at 10:30 Dicyclomine HCl (Bentyl) 10 mg TIDP PRN PO IBS Last administered on 01/15/19 18:43; Start 01/12/19 at 14:00 Diphenhydramine HCl (Benadryl) 50 mg BID PO Last administered on 01/14/19 20:51; Start 01/12/19 at 21:00; Stop 01/14/19 at 21:00; Status DC Fluticasone Propionate (Flonase 0.05% Nasal [place]) 2 spray DAILY PRN NA NASAL CONGESTION; Start 01/12/19 at 14:00 Gabapentin (Neurontin) 100 mg TID PO Last administered on 01/29/19at 16:09; Start 01/12/19 at 16:00 Haloperidol (Haldol) 2.5 mg QHS PO Last administered on 01/28/19 20:05; Start 01/25/19 at 21:00 Haloperidol (Haldol) 5 mg BID PO Last administered on 01/25/19 08:51; Start 01/12/19 at 21:00; Stop 01/25/19 at 10:04; Status DC Haloperidol (Haldol) 5 mg QAM PO Last administered on 01/29/19 08:52; Start 01/26/19 at 09:00 Home Med (Med Rec Complete!) ASDIRECTED XX ; Start 01/12/19 at 12:45; Stop 01/12/19 at 12:45; Status DC Hydroxyzine HCl (Atarax) 50 mg Q6HP PRN PO ANXIETY/AGITATION Last administered on 01/24/19at 13:59; Start 01/12/19 at 20:45 Ibuprofen (Advil) 600 mg Q6H PRN PO PAIN Last administered on 01/28/19at 20:05; Start 01/17/19 at 18:45 Loratadine (Claritin) 10 mg DAILY PO Last administered on 01/29/19at 08:52; S tart 01/13/19 at 09:00 Magnesium Hydroxide (Milk Of Magnesia) 30 ml DAILYPRN PRN PO CONSTIPATION; Start 01/12/19 at 14:00 Meloxicam (Mobic) 7.5 mg BID PRN PO PAIN; Start 01/12/19 at 14:00; Stop 01/14/19 at 14:00; Status DC Mirtazapine (Remeron) 15 mg QHS PO Last administered on 01/28/19at 20:04; Start 01/16/19 at 21:00 Non-Formulary Medication ( See Comment Field Below ) SEE COMMENTS SECTION 1T@10 XX ; Start 01/17/19 at 10:00; Stop 01/17/19 at 10:00; Status DC Non-Formulary Medication ( See Comment Field Below ) SEE LABEL COMMENTS DAILY XX ; Start 01/15/19 at 09:00; Stop 01/15/19 at 11:24; Status DC Prazosin HCl (Minipress) 1 mg QHS PO Last administered on 01/28/19at 20:04; Start 01/12/19 at 21:00 Sumatriptan Succinate (Imitrex) 25 mg DAILY PRN PO MIGRAINE Last administered on 01/27/19at 20:13; Start 01/12/19 at 14:00 Trazodone HCl (Desyrel) 75 mg QHSP PRN PO INSOMNIA Last administered on 01/15/19 20:08; Start 01/15/19 at 15:30; Stop 01/16/19 at 17:07; Status DC Trazodone HCl (Desyrel) 150 mg QHSP PRN PO INSOMNIA Last administered on 01/12/19at 20:12; Start 01/12/19 at 14:00; Stop 01/15/19 at 15:20; Status DC Venlafaxine HCl (Effexor) 75 mg DAILY PO Last administered on 01/29/19at 08:52; Start 01/13/19 at 09:00 Allergies Coded Allergies: RUBBER (Verified Allergy, Intermediate, 12/20/18) Mushroom (Verified Allergy, Unknown, 12/20/18) Penicillins (Verified Allergy, Unknown, 12/20/18) Sulfa (Sulfonamide Antibiotics) (Verified Allergy, Unknown, 12/20/18) TURKEY (Verified Allergy, Unknown, 12/20/18) emtricitabine (Verified Allergy, Unknown, 12/20/18) latex (Verified Allergy, Unknown, 12/20/18) raltegravir (Verified Allergy, Unknown, 12/20/18) sulfamethoxazole (Verified Allergy, Unknown, 12/20/18) tenofovir (Verified Allergy, Unknown, 12/20/18) tomato (Verified Allergy, Unknown, 12/20/18) trimethoprim (Verified Allergy, Unknown, 12/20/18) GME ATTESTATION GME ATTESTATION My faculty preceptor for this patient encounter was physically present during the encounter and was fully available. All aspects of the patient interview, e xamination, medical decision making process, and medical care plan development were reviewed and approved by the faculty preceptor. The faculty preceptor is aware and concurs with the plan as stated in the body of this note and will attest to such by his/her cosignature. RAMYA JIMENEZ DO Jan 29, 2019 16:56
[2019-01-29 18:20] VITALS: BP 124/82
[2019-01-29] MEDS: CYCLOBENZAPRINE 5MG TABLET PO PRN (19:46)
[2019-01-29 20:03] VITALS: BP 133/82
[2019-01-29] MEDS: PRAZOSIN 1 MG CAP PO SCH (20:03)
[2019-01-29] MEDS: MIRTAZAPINE 15 MG TAB PO SCH (20:03)
[2019-01-29] MEDS: IBUPROFEN 600 MG TAB PO PRN (20:04)
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
[2019-01-29] MEDS ORDERED: REME15TA PO (22:27)
[2019-01-29] MEDS ORDERED: CYCL5TAB PO (22:27)
[2019-01-29] MEDS ORDERED: IBUP-1022 PO (22:27)
[2019-01-29] MEDS ORDERED: HALO5TA PO ×2 (22:27)
[2019-01-29] MEDS ORDERED: HYDRO50TAB PO (22:27)
[2019-01-30 06:37] VITALS: BP 103/59
[2019-01-30] MEDS: GABAPENTIN 100 MG CAP PO SCH (08:16)
[2019-01-30] MEDS: LORATADINE 10 MG TAB PO SCH (08:16)
[2019-01-30] MEDS: HALOPERIDOL 5 MG TAB PO SCH (08:16)
[2019-01-30] MEDS: VENLAFAXINE 37.5 MG TAB PO SCH (08:16)
[2019-01-30] MEDS: BENZTROPINE 2 MG TAB PO SCH (08:16)
== END 2019-01-30 12:10 | DRG 753 ==
LOC: M ED 08:53 → M ED INP 13:58 → M PSY 15:07
PROVIDERS: ADMIT Psychiatry & Neurology Psychiatry; ATTEND Psychiatry & Neurology Psychiatry
DX: F31.81 Bipolar II disorder (principal); E66.9 Obesity, unspecified; F60.3 Borderline personality disorder; F43.10 Post-traumatic stress disorder, unspecified; F34.0 Cyclothymic disorder; G43.909 Migraine, unspecified, not intractable, without status migrainosus; F19.10 Other psychoactive substance abuse, uncomplicated; J45.909 Unspecified asthma, uncomplicated; Z79.899 Other long term (current) drug therapy; Z91.018 Allergy to other foods; Z88.0 Allergy status to penicillin; Z88.2 Allergy status to sulfonamides; Z91.048 Other nonmedicinal substance allergy status; Z91.040 Latex allergy status; Z88.8 Allergy status to other drugs, medicaments and biological substances; Z62.810 Personal history of physical and sexual abuse in childhood

== ENCOUNTER 2019-10-13 17:44 | Emergency (ER) | payer MEDICAID ==
[~2019-10-13] VITALS: Ht 167.6 cm; Wt 95.0 kg
[~2019-10-13 17:44] MED LIST changes: +CYCL5TAB PO; +HYDR1TAB33 PO; +METH750T2 PO; -METH75TA PO; -OMEP40CA2 PO; +OMEP40CA97 PO; +QUET100T2 PO; -QUET1TAB8 PO; +REME15TA PO; -SERT-155 PO; +SERT25TA21; -SERT25TA88; +SERT50TA29 PO
[2019-10-13] MEDS ORDERED: VENL150C43 (18:05)
[2019-10-13] MEDS ORDERED: ALL10TAB29 PO (18:05)
[2019-10-13] MEDS ORDERED: METF500T13 PO (18:05)
[2019-10-13 18:55] LABS: BASO % 0.4 % (0.0-1.0); EOS # 0.3 10^3/uL (0.0-0.5); EOS % 3.2 % (0.0-3.0); HEMOGLOBIN 12.9 g/dl (12.0-15.5); LYMPH # 2.1 10^3/uL (1.5-5.0); LYMPH % 26.8 % (24.0-44.0); MEAN CORPUSCULAR HEMOGLOBIN 28.2 pg (27.0-33.0); MEAN CORPUSCULAR HGB CONC 31.5 g/dl (32.0-36.5); MEAN CORPUSCULAR VOLUME 89.7 fl (80.0-96.0); MONO # 0.7 10^3/uL (0.0-0.8); MONO % 9.4 % (0.0-5.0); NEUTROPHILS # 4.6 10^3/uL (1.5-8.5); NEUTROPHILS % 59.6 % (36.0-66.0); PLATELET COUNT, AUTOMATED 203 10^3/uL (150-450); RED BLOOD COUNT 4.57 10^6/uL (4.00-5.40); WHITE BLOOD COUNT 7.8 10^3/uL (4.0-10.0)
[2019-10-13 19:22] LABS: BLOOD UREA NITROGEN 17 MG/DL (7-18); CALCIUM LEVEL 8.9 MG/DL (8.5-10.1); CARBON DIOXIDE LEVEL 26 MEQ/L (21-32); CHLORIDE LEVEL 109 MEQ/L (98-107); CREATININE FOR GFR 0.72 MG/DL (0.55-1.30); GLOMERULAR FILTRATION RATE > 60.0 (>60); GLUCOSE, FASTING 101 MG/DL (70-100); SODIUM LEVEL 141 MEQ/L (136-145)
[2019-10-13 19:43] VITALS: BP 128/91
[2019-10-14] MEDS ORDERED: PRAZ2CAP PO (09:28)
[2019-10-14] MEDS ORDERED: REME15TA2 PO (09:28)
[2019-10-14] MEDS ORDERED: VENL150C43 PO (09:28)
[2019-10-14] MEDS ORDERED: HALO5TA PO (16:52)
== END 2019-10-13 19:48 | disposition home or self-care (01) ==
LOC: EDBD 17:44 → M ED 17:44
DX: R11.2 Nausea with vomiting, unspecified (principal); Z88.0 Allergy status to penicillin; Z88.8 Allergy status to other drugs, medicaments and biological substances; Z88.2 Allergy status to sulfonamides; Z91.040 Latex allergy status; Z91.018 Allergy to other foods; Z79.899 Other long term (current) drug therapy

== ENCOUNTER 2019-10-14 03:49 | Emergency (ER) | payer MEDICAID, SELFPAY ==
[~2019-10-14] VITALS: Ht 167.6 cm; Wt 95.0 kg
[~2019-10-14 03:49] MED LIST changes: +ALL10TAB29 PO; +METF500T13 PO; +VENL150C43
[2019-10-14 05:01] LABS: HEMATOCRIT 41.6 % (36.0-47.0); HEMOGLOBIN 13.4 g/dl (12.0-15.5); MEAN CORPUSCULAR HEMOGLOBIN 28.6 pg (27.0-33.0); MEAN CORPUSCULAR HGB CONC 32.2 g/dl (32.0-36.5); MEAN CORPUSCULAR VOLUME 88.7 fl (80.0-96.0); PLATELET COUNT, AUTOMATED 244 10^3/uL (150-450); RED BLOOD COUNT 4.69 10^6/uL (4.00-5.40); WHITE BLOOD COUNT 11.4 10^3/uL (4.0-10.0)
[2019-10-14 05:31] LABS: AMPHETAMINES LEVEL URINE NEGATIVE (NEGATIVE); BARBITURATES URINE NEGATIVE (NEGATIVE); BENZODIAZEPINES URINE NEGATIVE (NEGATIVE); CANNABINOIDS URINE NEGATIVE (NEGATIVE); COCAINE METABOLITE URINE NEGATIVE (NEGATIVE); METHADONE URINE NEGATIVE (NEGATIVE); OPIATES URINE NEGATIVE (NEGATIVE); PHENCYCLIDINE URINE NEGATIVE (NEGATIVE)
[2019-10-14 05:41] LABS: ACETAMINOPHEN LEVEL < 2.0 UG/ML (10.0-30.0); ALBUMIN 3.7 GM/DL (3.2-5.2); ALT/SGPT 69 U/L (12-78); BILIRUBIN,DIRECT < 0.1 MG/DL (0.0-0.2); BILIRUBIN,TOTAL 0.3 MG/DL (0.2-1.0); BLOOD UREA NITROGEN 15 MG/DL (7-18); CALCIUM LEVEL 8.4 MG/DL (8.5-10.1); CARBON DIOXIDE LEVEL 24 MEQ/L (21-32); CHLORIDE LEVEL 110 MEQ/L (98-107); CREATININE FOR GFR 0.79 MG/DL (0.55-1.30); ETHYL ALCOHOL (ETHANOL) 0.003 % (0.000-0.010); GLOMERULAR FILTRATION RATE > 60.0 (>60); GLUCOSE, FASTING 96 MG/DL (70-100); POTASSIUM SERUM 4.1 MEQ/L (3.5-5.1); SALICYLATE LEVEL < 1.7 MG/DL (5.0-30.0); SODIUM LEVEL 141 MEQ/L (136-145); TOTAL PROTEIN 7.3 GM/DL (6.4-8.2)
[2019-10-14 05:45] LABS: HCG, SERUM QUALITATIVE NEGATIVE (NEGATIVE)
[2019-10-14] MEDS ORDERED: ONDANSETRON 4 MG ORAL DISINTEGRATING TAB (Q0162 PER 1MG) PO ONE (05:45)
[2019-10-14] MEDS ORDERED: diphenhydrAMINE 25 MG CAP PO SCH (09:00)
[2019-10-14] MEDS ORDERED: REME15TA2 PO (09:28)
[2019-10-14] MEDS ORDERED: PRAZ2CAP PO (09:28)
[2019-10-14] MEDS ORDERED: VENL150C43 PO (09:28)
[2019-10-14] MEDS: GABAPENTIN 100 MG CAP PO SCH ×3 (10:13→21:18)
[2019-10-14] MEDS: BENZTROPINE 2 MG TAB PO SCH (10:13)
[2019-10-14] MEDS: haloperidoL 5 MG TAB PO SCH (10:13)
[2019-10-14] MEDS: VENLAFAXINE **XR** 75MG CAPSULE PO SCH (10:13)
[2019-10-14] MEDS: metFORMIN (GLUCOPHAGE) 500 MG TAB PO SCH ×2 (12:30→18:00)
[2019-10-14] MEDS ORDERED: HALO5TA PO (16:52)
--- NOTE | 2019-10-14 20:34 | ECGEPIP ---
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
[2019-10-14] MEDS: diphenhydrAMINE 50 MG CAP PO SCH (21:18)
[2019-10-14] MEDS: MIRTAZAPINE 15 MG TAB PO SCH (21:18)
[2019-10-14] MEDS: PRAZOSIN 1 MG CAP PO SCH (21:19)
[2019-10-15] MEDS: VENLAFAXINE **XR** 75MG CAPSULE PO SCH (07:55)
[2019-10-15] MEDS: metFORMIN (GLUCOPHAGE) 500 MG TAB PO SCH ×3 (07:55→18:10)
[2019-10-15] MEDS: GABAPENTIN 100 MG CAP PO SCH ×3 (07:55→21:51)
[2019-10-15] MEDS: BENZTROPINE 2 MG TAB PO SCH (07:55)
[2019-10-15] MEDS: haloperidoL 5 MG TAB PO SCH (07:56)
[2019-10-15 21:51] VITALS: BP 132/60
[2019-10-15] MEDS: diphenhydrAMINE 50 MG CAP PO SCH (21:51)
[2019-10-15] MEDS: PRAZOSIN 1 MG CAP PO SCH (21:51)
[2019-10-15] MEDS: MIRTAZAPINE 15 MG TAB PO SCH (21:51)
[2019-10-16] MEDS: BENZTROPINE 2 MG TAB PO SCH (08:11)
[2019-10-16] MEDS: metFORMIN (GLUCOPHAGE) 500 MG TAB PO SCH (08:11)
[2019-10-16] MEDS: haloperidoL 5 MG TAB PO SCH (08:11)
[2019-10-16] MEDS: GABAPENTIN 100 MG CAP PO SCH (08:11)
[2019-10-16] MEDS: VENLAFAXINE **XR** 75MG CAPSULE PO SCH (08:11)
[2019-10-16 12:26] VITALS: BP 110/67
== END 2019-10-16 12:30 ==
LOC: M ED 03:49
DX: R45.851 Suicidal ideations (principal); J45.909 Unspecified asthma, uncomplicated; E28.2 Polycystic ovarian syndrome; E78.5 Hyperlipidemia, unspecified; F31.9 Bipolar disorder, unspecified; F60.3 Borderline personality disorder; E66.8 Other obesity; Z79.899 Other long term (current) drug therapy; Z88.0 Allergy status to penicillin; Z88.1 Allergy status to other antibiotic agents; Z88.2 Allergy status to sulfonamides; Z88.8 Allergy status to other drugs, medicaments and biological substances; Z91.018 Allergy to other foods; Z91.040 Latex allergy status; Z91.048 Other nonmedicinal substance allergy status
CPT/HCPCS: 36415; 80048; 80076; 80307; 84443; 84703; 85027; 93005; 99285; G0480; Q0162

== ENCOUNTER 2019-11-14 13:06 | Emergency (ER) | payer MEDICAID, SELFPAY ==
[~2019-11-14] VITALS: Ht 167.6 cm; Wt 135.7 kg
[2019-11-14 13:06] VITALS: BP 123/77
[~2019-11-14 13:06] MED LIST changes: +CYCL-707 PO; -CYCL10TA PO; +PRAZ2CAP PO; +REME15TA2 PO; +VENL150C43 PO
[2019-11-14] MEDS ORDERED: IBUPROFEN 600 MG TAB PO ONE (13:30)
[2019-11-14] MEDS ORDERED: IBUP-1022 PO (13:59)
--- NOTE | 2019-11-14 14:44 | REP ---
LEFT KNEE, FIVE VIEWS: There is no evidence of an acute fracture, dislocation or intrinsic bone disease. IMPRESSION: No fracture or dislocation. Electronically Signed by Tapan Hicks MD 11/14/2019 03:08 P
--- NOTE | 2019-11-14 14:45 | REP ---
LEFT ANKLE, FOUR VIEWS: Four views of the left ankle performed. No fracture or dislocation is seen. There is mild posterior calcaneal spurring. The ankle mortise is anatomic. IMPRESSION: No acute fracture or dislocation. Electronically Signed by Tapan Hicks MD 11/14/2019 03:08 P
[2019-11-15] MEDS ORDERED: MIRA3350 PO (20:24)
== END 2019-11-14 14:10 | disposition home or self-care (01) ==
LOC: M ED 13:06
DX: S83.92XA Sprain of unspecified site of left knee, initial encounter (principal); S93.402A Sprain of unspecified ligament of left ankle, initial encounter; X58.XXXA Exposure to other specified factors, initial encounter; Y92.018 Other place in single-family (private) house as the place of occurrence of the external cause; I10 Essential (primary) hypertension; E28.2 Polycystic ovarian syndrome; K21.9 Gastro-esophageal reflux disease without esophagitis; Z79.899 Other long term (current) drug therapy; Z88.0 Allergy status to penicillin; Z88.1 Allergy status to other antibiotic agents; Z88.2 Allergy status to sulfonamides; Z88.8 Allergy status to other drugs, medicaments and biological substances; Z91.018 Allergy to other foods; Z91.040 Latex allergy status; Z91.048 Other nonmedicinal substance allergy status; F17.210 Nicotine dependence, cigarettes, uncomplicated

== ENCOUNTER 2019-11-15 20:11 | Emergency (ER) | payer MEDICAID, SELFPAY ==
[~2019-11-15] VITALS: Ht 167.6 cm; Wt 100.0 kg
[2019-11-15] MEDS ORDERED: MIRA3350 PO (20:24)
--- NOTE | 2019-11-15 21:05 | REPVR ---
PROCEDURE INFORMATION: Exam: US Abdomen Limited, Right Upper Quadrant Exam date and time: 11/15/2019 9:01 PM Age: 19 years old Clinical indication: Abdominal pain; Epigastric; Additional info: Biliary / gb TECHNIQUE: Imaging protocol: Real-time ultrasound of the abdomen with image documentation. Examination was focused on the right upper quadrant. COMPARISON: No relevant prior studies available. FINDINGS: Liver: The liver demonstrates no focal defects but is attenuating and enlarged measuring 21.5 cm. Gallbladder: The gallbladder is contracted with no wall thickening measuring 2 mm. No stones are seen. There is a negative sono Dickson's sign. Common bile duct: The CBD measures 3-4 mm. Pancreas: The pancreas is not seen due to gas shadowing. Right kidney: The right kidney measures 13.7 cm with no hydronephrosis. IMPRESSION: 1. Hepatomegaly with fatty infiltration. 2. Otherwise negative right upper quadrant sonogram. No gallstones. Electronically signed by: Champ Beauchamp On 11/15/2019 21:05:20 PM
[2019-11-15] MEDS ORDERED: ACETAMINOPHEN 500 MG TAB PO ONE (21:45)
[2019-11-15 21:46] VITALS: BP 115/57
--- NOTE | 2019-11-16 08:14 | REP ---
Left hand series: Two views. History: Trauma. Findings: AP and lateral views of the left hand show normal bones joints and soft tissues. No fracture or subluxation is seen. There is soft tissue fullness dorsally over the metacarpals which may be swelling. Impression: No fracture or subluxation seen. Electronically Signed by Herman Anthony MD 11/16/2019 08:05 A
== END 2019-11-15 22:34 | disposition home or self-care (01) ==
LOC: M ED 20:11
DX: K29.70 Gastritis, unspecified, without bleeding (principal); S60.222A Contusion of left hand, initial encounter; W22.8XXA Striking against or struck by other objects, initial encounter; Y92.9 Unspecified place or not applicable; Y93.89 Activity, other specified; Y99.9 Unspecified external cause status; K76.0 Fatty (change of) liver, not elsewhere classified; R16.0 Hepatomegaly, not elsewhere classified; F60.9 Personality disorder, unspecified; E66.9 Obesity, unspecified; Z79.899 Other long term (current) drug therapy; Z91.040 Latex allergy status; Z88.0 Allergy status to penicillin; Z88.2 Allergy status to sulfonamides; Z91.018 Allergy to other foods; Z88.8 Allergy status to other drugs, medicaments and biological substances; Z88.1 Allergy status to other antibiotic agents

== ENCOUNTER 2019-11-20 18:31 | Inpatient (IN) | payer MEDICAID, SELFPAY ==
[~2019-11-20] VITALS: Ht 162.6 cm; Wt 131.8 kg
[~2019-11-20 18:31] MED LIST changes: -CYCL-707 PO; +CYCL10TA PO; +MIRA3350 PO
[2019-11-20 19:24] LABS: BASO % 0.4 % (0.0-1.0); EOS # 0.4 10^3/uL (0.0-0.5); EOS % 6.5 % (0.0-3.0); HEMATOCRIT 35.9 % (36.0-47.0); HEMOGLOBIN 11.5 g/dl (12.0-15.5); LYMPH % 36.2 % (24.0-44.0); MEAN CORPUSCULAR HEMOGLOBIN 29.1 pg (27.0-33.0); MEAN CORPUSCULAR VOLUME 90.9 fl (80.0-96.0); MONO # 0.5 10^3/uL (0.0-0.8); MONO % 9.2 % (0.0-5.0); NEUTROPHILS # 2.6 10^3/uL (1.5-8.5); NEUTROPHILS % 47.3 % (36.0-66.0); PLATELET COUNT, AUTOMATED 149 10^3/uL (150-450); RED BLOOD COUNT 3.95 10^6/uL (4.00-5.40); WHITE BLOOD COUNT 5.5 10^3/uL (4.0-10.0)
[2019-11-20] MEDS ORDERED: CHARCOAL ACTIVATED LIQUID 25 GM/120 ML BTL PO ONE (19:30)
[2019-11-20 20:04] LABS: AMPHETAMINES LEVEL URINE NEGATIVE (NEGATIVE); BARBITURATES URINE NEGATIVE (NEGATIVE); BENZODIAZEPINES URINE NEGATIVE (NEGATIVE); CANNABINOIDS URINE NEGATIVE (NEGATIVE); COCAINE METABOLITE URINE NEGATIVE (NEGATIVE); METHADONE URINE NEGATIVE (NEGATIVE); OPIATES URINE NEGATIVE (NEGATIVE); PHENCYCLIDINE URINE NEGATIVE (NEGATIVE)
[2019-11-20 20:05] LABS: ACETAMINOPHEN LEVEL < 2.0 UG/ML (10.0-30.0); ALBUMIN 3.4 GM/DL (3.2-5.2); ALT/SGPT 37 U/L (12-78); BILIRUBIN,DIRECT < 0.1 MG/DL (0.0-0.2); BILIRUBIN,TOTAL 0.1 MG/DL (0.2-1.0); BLOOD UREA NITROGEN 12 MG/DL (7-18); CALCIUM LEVEL 8.4 MG/DL (8.5-10.1); CARBON DIOXIDE LEVEL 26 MEQ/L (21-32); CHLORIDE LEVEL 112 MEQ/L (98-107); CPK CREATINE PHOSPHOKINASE 260 U/L (26-192); CREATININE FOR GFR 0.76 MG/DL (0.55-1.30); ETHYL ALCOHOL (ETHANOL) < 0.003 % (0.000-0.010); GLOMERULAR FILTRATION RATE > 60.0 (>60); GLUCOSE, FASTING 105 MG/DL (70-100); SALICYLATE LEVEL < 1.7 MG/DL (5.0-30.0); SODIUM LEVEL 143 MEQ/L (136-145); TOTAL PROTEIN 6.3 GM/DL (6.4-8.2)
[2019-11-20] MEDS ORDERED: NS 1,000 ML IV ONE (20:30)
[2019-11-21] MEDS ORDERED: MOM 30ML SUSPENSION UDC PO PRN (03:45)
[2019-11-21] MEDS ORDERED: MAALOX 30 ML SUSP *UDC PO PRN (03:45)
[2019-11-21] MEDS ORDERED: traZODone 50 MG TAB PO PRN (03:45)
[2019-11-21 05:49] VITALS: BP 131/92
[2019-11-21] MEDS: GABAPENTIN 100 MG CAP PO SCH ×3 (08:15→20:31)
[2019-11-21] MEDS: metFORMIN (GLUCOPHAGE) 500 MG TAB PO SCH ×3 (08:16→20:31)
[2019-11-21] MEDS: CETIRIZINE (ZyrTEC) 10 MG TAB PO SCH (08:16)
[2019-11-21] MEDS ORDERED: BENZTROPINE 2 MG TAB PO SCH (09:00)
[2019-11-21] MEDS ORDERED: haloperidoL 5 MG TAB PO SCH (09:00)
--- NOTE | 2019-11-21 10:36 | ECGEPIP ---
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
[2019-11-21] MEDS: ACETAMINOPHEN TAB 650MG DOSE (2X325MG) PO PRN ×2 (11:02→17:33)
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
[2019-11-21 15:55] VITALS: BP 160/85
[2019-11-21 20:33] VITALS: BP 140/66
[2019-11-21] MEDS ORDERED: MIRTAZAPINE 15 MG TAB PO SCH (21:00)
[2019-11-21] MEDS ORDERED: PRAZOSIN 1 MG CAP PO SCH (21:00)
[2019-11-22 06:30] VITALS: BP 116/52
[2019-11-22] MEDS: metFORMIN (GLUCOPHAGE) 500 MG TAB PO SCH (08:24)
[2019-11-22] MEDS: CETIRIZINE (ZyrTEC) 10 MG TAB PO SCH (08:24)
[2019-11-22] MEDS: GABAPENTIN 100 MG CAP PO SCH (08:24)
[2019-11-22] MEDS: ACETAMINOPHEN TAB 650MG DOSE (2X325MG) PO PRN (08:25)
[2019-11-22] MEDS ORDERED: ABIL1TAB11 PO (09:34)
--- NOTE | 2019-11-22 10:03 | HPEPDOC ---
General Date of Admission Nov 21, 2019 at 03:42 Date of Service: Nov 21, 2019 Chief Complaint The patient is a 19-year-old female admitted with a reason for visit of Unspecified Psychotic Disorder. Source: Patient, RN/MD History of Present Illness 19 year old female admitted to [facility] for depression. I am seeing the patient for medical history and physical. Patient complains of headache since this morning and sinus congestion. Says she has problems with the her sinuses off and on and gets sinusitis. Also complained of post nasal gtt and some sore throat. No dysphagia. Home Medications Scheduled Aripiprazole (Abilify) 5 Mg Tablet, 5 MG PO DAILY for mood Cetirizine HCl (Cetirizine HCl) 10 Mg Tablet, 10 MG PO DAILY, (Reported) Metformin HCl (Metformin HCl) 500 Mg Tablet, 500 MG PO TID, (Reported) Mirtazapine (Remeron) 15 Mg Tab.rapdis, 15 MG PO QHS, (Reported) Prazosin Hcl (Prazosin HCl) 2 Mg Capsule, 2 MG PO QHS, (Reported) Allergies Coded Allergies: RUBBER (Verified Allergy, Intermediate, 11/15/19) Mushroom (Verified Allergy, Unknown, 11/15/19) Penicillins (Verified Allergy, Unknown, 11/15/19) Sulfa (Sulfonamide Antibiotics) (Verified Allergy, Unknown, 11/15/19) TURKEY (Verified Allergy, Unknown, 11/15/19) emtricitabine (Verified Allergy, Unknown, 11/15/19) latex (Verified Allergy, Unknown, 11/15/19) raltegravir (Verified Allergy, Unknown, 11/15/19) sulfamethoxazole (Verified Allergy, Unknown, 11/15/19) tomato (Verified Allergy, Unknown, 11/15/19) trimethoprim (Verified Allergy, Unknown, 11/15/19) Past Medical History Medical History Obesity Depression PTSD, Asthma, Borderline Personality disorder, PCOS Adenoidectomy Tosillectomy Appendectomy L. Oopherectomy Family History Significant Family History: Diabetes (parents), Hypertension (parents) Social History * Smoker: Denies Alcohol: Denies Drugs: marijuana A-FIB/CHADSVASC A-FIB History Current/History of A-Fib/PAF?: No Review of Systems Constitutional: Denies: Chills, Fever, Night Sweats Eyes: Denies: Pain, Vision change ENT: Reports: Head Aches, Post Nasal Drip, Sore Throat; Denies: Ear Pain, Dysphagia Skin: Denies: Rash, Lesions, Breakdown Pulmonary: Denies: Dyspnea, Cough Cardiovascular: Denies: Chest Pain, Palpitations, Orthopnea, Paroxysmal Noc. Dyspnea, Lt Headedness Gastrointestinal: Denies: Nausea, Vomiting, Abdominal Pain, Diarrhea Genitourinary: Denies: Dysuria, Frequency, Incontinence, Retention Physical Examination General Exam: Positive: Alert, Cooperative, No Acute Distress Eye Exam: Positive: PERRLA, Conjunctiva & lids normal, EOMI; Negative: Sclera icteric ENT Exam: Positive: Atraumatic, Mucous membr. moist/pink, Pharynx Normal, Other ENT (mild tenderness on frontal and ethmoidal sinus area) Neck Exam: Positive: Supple; Negative: JVD, thyromegaly Chest Exam: Positive: Clear to auscultation, Normal air movement Heart Exam: Positive: Rate Normal, Regular Rhythm, Normal S1, Normal S2; Negative: Murmurs, Rubs Abdomen Exam: Positive: Normal bowel sounds, Soft; Negative: Tenderness, Hepatospenomegaly Extremity Exam: Positive: Normal pulses; Negative: Clubbing, Cyanosis, Edema Vital Signs Vital Signs Date Time Temp Pulse Resp B/P (MAP) Pulse Ox O2 Delivery O2 Flow Rate FiO2 11/21/19 05:49 98.2 84 16 131/92 (105) 98 Room Air Laboratory Data Labs 24H Laboratory Tests 2 11/20/19 18:39: Urine Opiates Screen NEGATIVE, Urine Methadone Screen NEGATIVE, Urine Barbiturates Screen NEGATIVE, Urine Phencyclidine Screen NEGATIVE, Urine Amphetamines Screen NEGATIVE, Urine Benzodiazepines Screen NEGATIVE, Urine Cocaine Metabolite Screen NEGATIVE, Urine Cannabinoids Screen NEGATIVE 11/20/19 19:03: Bedside Glucose (Misc Panel) 106H 11/20/19 19:08: Immature Granulocyte % (Auto) 0.4, Neutrophils (%) (Auto) 47.3, Lymphocytes (%) (Auto) 36.2, Monocytes (%) (Auto) 9.2H, Eosinophils (%) (Auto) 6.5H, Basophils (%) (Auto) 0.4, Neutrophils # (Auto) 2.6, Lymphocytes # (Auto) 2.0, Monocytes # (Auto) 0.5, Eosinophils # (Auto) 0.4, Basophils # (Auto) 0.0, Nucleated Red Blood Cells % (auto) 0.0, Anion Gap 5L, Glomerular Filtration Rate > 60.0, Lactic Acid Level 2.9*H, Calcium Level 8.4L, Total Bilirubin 0.1L, Direct Bilirubin < 0.1, Aspartate Amino Transf (AST/SGOT) 22, Alanine Aminotransferase (ALT/SGPT) 37, Alkaline Phosphatase 94, Total Creatine Kinase 260H, Total Protein 6.3L, Albumin 3.4, Albumin/Globulin Ratio 1.17, Thyroid Stimulating Hormone (TSH) 1.470, Salicylates Level < 1.7L, Acetaminophen Level < 2.0L, Ethyl Alcohol Level < 0.003 11/20/19 22:55: Lactic Acid Level 2.2*H 11/21/19 05:11: Lactic Acid Followup at 4 Hours 1.0 CBC/BMP Laboratory Tests 11/20/19 19:08 Assessment/Plan 19 year old female admitted to [facility] for depression. I am seeing the patient for medical history and physical. She also complains of sinusitis and headache. Sinus congestion continue tylenol prn. flonase and cetrizine PCOS continue glucophage Psychiatric issues as per psychiatry Plan / VTE VTE Prophylaxis Ordered?: No ELLIOTT SMITH MD Nov 21, 2019 07:43
[2019-11-22] MEDS ORDERED: FLUTICASONE PROP 0.05% NASAL SPRAY 16 GM (FLONASE) NARES SCH (12:00)
--- NOTE | 2019-11-22 14:25 | MHDSPDOC ---
[facility] Discharge Summary Discharge Summary DATE OF ADMISSION: Nov 21, 2019 at 03:42 DATE OF DISCHARGE: 11/22/19 Reason for Admission Suicidal ideation. Discharge Diagnoses Borderline personality disorder Hospital and treatment course: Bernice is a 19-year-old woman who was admitted for an endorsed intentional overdose in the setting of command auditory hallucinations for suicide. Once admitted, she consistently denied suicidal thoughts. She also reported an improvement in her auditory hallucinations. Discharge evaluation: On the day of discharge, she denied any SI or auditory hallucinations. Haloperidol, diphenhydramine, and benztropine were discontinued and replaced with aripiprazole due to its more favorable side effect profile and greater efficacy for borderline personality disorder mood dysregulation. She will follow-up with her outpatient psychiatrist and therapist. The patient at the time of discharge did not meet criteria for involuntary admission/extension due to having a normal mental status exam, fair insight into the situation, They are engaged in the discharge process, as well as being friendly and amenable in behavioral control and havent been engaging in any observed concerning behavior or ideation recently. They decline voluntary e xtension/admission at this time and must be discharged in good saniya, as Im unable to make a case for holding the patient against their will. They may have historical risk factors of admissions and other interactions with psychiatry however, those are not modifiable from a clinical perspective. The patient will need to be discharged in good saniya. Exam Vitals: see below General: Well dressed with good hygiene Speech: Spontaneous and fluid Thought processes: Linear and logical MSK: Smooth and coordinated gait, no signs of tremors or involuntary orofacial movements Thought content: Future orientated Abstract reasoning, and computation: Intact Description of associations: Intact Description of abnormal or psychotic thoughts: Denies any suicidal or homicidal ideation. Denies any auditory or visual hallucinations. Does not appear to be responding to internal stimuli. Does not appear to be endorsing any bizarre or paranoid ideation. Judgment: fair Insight: fair Orientation: Alert and orientated 3 Cognition: Grossly normal Recent and remote memory: Intact Attention span and concentration: Intact Fund of knowledge: Adequate Mood: "okay" Affect: Euthymic with a full range Review of Systems General: Denies fever or appetite changes Cardiovascular: Denies Chest pain or palpations GI: Denies Nausea, vomiting, or bowel changes Respiratory: Denies shortness of breath or cough Neuro: Denies dizziness, tremors Derm: Denies any rashes or pruritus : Denies any dysuria or urinary problems MSK: Denies any muscle tightness or stiffness HEENT: Denies any vision changes or headaches Depression: negative Anxiety: negative Tanya: negative Psychosis: negative The amount of time spent in the coordination of care for this patient was approximately 30 minutes. Vital Signs/I&Os Vital Signs Date Time Temp Pulse Resp B/P (MAP) Pulse Ox O2 Delivery O2 Flow Rate FiO2 11/22/19 06:30 99.0 80 18 116/52 (73) 99 Room Air Medications Scheduled Aripiprazole (Abilify) 5 Mg Tablet, 5 MG PO DAILY for mood for 7 Days, #7 Cetirizine HCl (Cetirizine HCl) 10 Mg Tablet, 10 MG PO DAILY, (Reported) Metformin HCl (Metformin HCl) 500 Mg Tablet, 500 MG PO TID, (Reported) Mirtazapine (Remeron) 15 Mg Tab.rapdis, 15 MG PO QHS, (Reported) Prazosin Hcl (Prazosin HCl) 2 Mg Capsule, 2 MG PO QHS, (Reported) Allergies Coded Allergies: RUBBER (Verified Allergy, Intermediate, 11/15/19) Mushroom (Verified Allergy, Unknown, 11/15/19) Penicillins (Verified Allergy, Unknown, 11/15/19) Sulfa (Sulfonamide Antibiotics) (Verified Allergy, Unknown, 11/15/19) TURKEY (Verified Allergy, Unknown, 11/15/19) emtricitabine (Verified Allergy, Unknown, 11/15/19) latex (Verified Allergy, Unknown, 11/15/19) raltegravir (Verified Allergy, Unknown, 11/15/19) sulfamethoxazole (Verified Allergy, Unknown, 11/15/19) tomato (Verified Allergy, Unknown, 11/15/19) trimethoprim (Verified Allergy, Unknown, 11/15/19) GME ATTESTATION GME ATTESTATION My faculty preceptor for this patient encounter was physically present during the encounter and was fully available. All aspects of the patient interview, examination, medical decision making process, and medical care plan development were reviewed and approved by the faculty preceptor. The faculty preceptor is aware and concurs with the plan as stated in the body of this note and will attest to such by his/her cosignature. ATTENDING NOTE I agree with Dr. Orr's assessment and plan for discharge, my assessment as below The patient at the time of discharge did not meet criteria for involuntary admission/extension due to having a normal mental status exam, fair insight into the situation, They are engaged in the discharge process, as well as being fri endly and amenable in behavioral control and havent been engaging in any observed concerning behavior or ideation recently. They decline voluntary extension/admission at this time and must be discharged in good saniya, as Im unable to make a case for holding the patient against their will. They may have historical risk factors of admissions and other interactions with psychiatry h owever, those are not modifiable from a clinical perspective. The patient will need to be discharged in good saniya. RANDY ORR MD Nov 22, 2019 10:25 PHYLLIS RIZZO DO Nov 22, 2019 16:15
[2019-11-22] MEDS ORDERED: ONDA4TAB6 PO (21:51)
[2019-11-23] MEDS ORDERED: EFFE150C2 PO (15:55)
== END 2019-11-22 11:00 | disposition home or self-care (01) | DRG 752 ==
LOC: EDBD 18:31 → M ED 18:31 → M ED INP 11-21 03:42 → M PSY 11-21 05:43
PROVIDERS: ADMIT Psychiatry & Neurology Psychiatry; ATTEND Psychiatry & Neurology Addiction Medicine
DX: F60.3 Borderline personality disorder (principal); E28.2 Polycystic ovarian syndrome; Z79.899 Other long term (current) drug therapy; Z88.0 Allergy status to penicillin; Z88.2 Allergy status to sulfonamides; Z91.040 Latex allergy status; Z91.018 Allergy to other foods; E66.9 Obesity, unspecified; J45.909 Unspecified asthma, uncomplicated

== ENCOUNTER 2019-11-22 20:45 | Emergency (ER) | payer MEDICAID ==
[~2019-11-22] VITALS: Ht 167.6 cm; Wt 95.0 kg
[~2019-11-22 20:45] MED LIST changes: +ABIL1TAB11 PO
[2019-11-22] MEDS ORDERED: ONDANSETRON 4 MG ORAL DISINTEGRATING TAB (Q0162 PER 1MG) PO ONE (21:30)
[2019-11-22] MEDS ORDERED: ONDA4TAB6 PO (21:51)
[2019-11-22 21:56] VITALS: BP 138/85
--- NOTE | 2019-11-23 12:28 | ECGEPIP ---
[facility] - ED Test Date: 2019-11-22 Pat Name: RAMYA MCCARTNEY Department: Room: - Gender: Female Mosaic Tiler: : 2000 Requested By: COLE ADAMS PA-C. Order Number: [id number] Reading MD: Courtney Yo Measurements Intervals [place] Rate: 95 P: 0 [place]: 119 QRS: 22 QRSD: 89 T: 20 QT: 341 QTc: 430 Interpretive Statements SINUS RHYTHM WITH SHORT [place] INTERVAL NSTTW abnormalities SIMILAR 11/20/19 12:27 Electronically Signed on 11-23-2019 12:27:43 EDT by Courtney Yo
[2019-11-23] MEDS ORDERED: EFFE150C2 PO (15:55)
== END 2019-11-22 21:57 | disposition home or self-care (01) ==
LOC: M ED 20:45
DX: R11.2 Nausea with vomiting, unspecified (principal); T43.215A Adverse effect of selective serotonin and norepinephrine reuptake inhibitors, initial encounter; Y92.9 Unspecified place or not applicable; Y93.9 Activity, unspecified; Z79.899 Other long term (current) drug therapy; Z88.0 Allergy status to penicillin; Z88.2 Allergy status to sulfonamides; Z88.1 Allergy status to other antibiotic agents; Z91.018 Allergy to other foods; Z91.040 Latex allergy status
CPT/HCPCS: 93005; 99284; Q0162

== ENCOUNTER 2019-11-23 11:13 | Emergency (ER) | payer MEDICAID ==
[~2019-11-23] VITALS: Ht 167.6 cm; Wt 11.8 kg
[~2019-11-23 11:13] MED LIST changes: +CYCL-707 PO; -CYCL10TA PO
[2019-11-23 13:15] LABS: BASO % 0.4 % (0.0-1.0); EOS # 0.2 10^3/uL (0.0-0.5); EOS % 3.9 % (0.0-3.0); HEMATOCRIT 38.3 % (36.0-47.0); HEMOGLOBIN 11.9 g/dl (12.0-15.5); LYMPH # 1.6 10^3/uL (1.5-5.0); LYMPH % 27.2 % (24.0-44.0); MEAN CORPUSCULAR HEMOGLOBIN 28.1 pg (27.0-33.0); MEAN CORPUSCULAR HGB CONC 31.1 g/dl (32.0-36.5); MEAN CORPUSCULAR VOLUME 90.3 fl (80.0-96.0); MONO # 0.7 10^3/uL (0.0-0.8); MONO % 11.4 % (0.0-5.0); NEUTROPHILS # 3.3 10^3/uL (1.5-8.5); NEUTROPHILS % 56.9 % (36.0-66.0); PLATELET COUNT, AUTOMATED 149 10^3/uL (150-450); RED BLOOD COUNT 4.24 10^6/uL (4.00-5.40); WHITE BLOOD COUNT 5.7 10^3/uL (4.0-10.0)
[2019-11-23 13:40] LABS: AMPHETAMINES LEVEL URINE NEGATIVE (NEGATIVE); BARBITURATES URINE NEGATIVE (NEGATIVE); BENZODIAZEPINES URINE NEGATIVE (NEGATIVE); CANNABINOIDS URINE NEGATIVE (NEGATIVE); COCAINE METABOLITE URINE NEGATIVE (NEGATIVE); METHADONE URINE NEGATIVE (NEGATIVE); OPIATES URINE NEGATIVE (NEGATIVE); PHENCYCLIDINE URINE NEGATIVE (NEGATIVE)
--- NOTE | 2019-11-23 13:44 | REP ---
Chest x-ray: Two views. History: Chest pain . Comparison study: January 04, 2019 . Findings: The lungs are well inflated and free of infiltrate. The pleural angles are sharp. The heart size is normal. Pulmonary vasculature is not increased. No significant bony abnormality is seen. Impression: Negative chest x-ray. Electronically Signed by Herman Anthony MD 11/23/2019 01:36 P
[2019-11-23 13:55] LABS: ACETAMINOPHEN LEVEL < 2.0 UG/ML (10.0-30.0); ALBUMIN 3.6 GM/DL (3.2-5.2); ALT/SGPT 37 U/L (12-78); BILIRUBIN,DIRECT < 0.1 MG/DL (0.0-0.2); BILIRUBIN,TOTAL 0.1 MG/DL (0.2-1.0); BLOOD UREA NITROGEN 10 MG/DL (7-18); CALCIUM LEVEL 8.6 MG/DL (8.5-10.1); CARBON DIOXIDE LEVEL 25 MEQ/L (21-32); CHLORIDE LEVEL 111 MEQ/L (98-107); CK-MB VALUE MASS 3.1 NG/ML (<3.6); CPK CREATINE PHOSPHOKINASE 384 U/L (26-192); CREATININE FOR GFR 0.71 MG/DL (0.55-1.30); ETHYL ALCOHOL (ETHANOL) < 0.003 % (0.000-0.010); GLOMERULAR FILTRATION RATE > 60.0 (>60); GLUCOSE, FASTING 98 MG/DL (70-100); LIPASE 104 U/L (73-393); MB/CK RELATIVE INDEX 0.81 (< OR =4); POTASSIUM SERUM 3.9 MEQ/L (3.5-5.1); SALICYLATE LEVEL < 1.7 MG/DL (5.0-30.0); SODIUM LEVEL 142 MEQ/L (136-145); TOTAL PROTEIN 6.8 GM/DL (6.4-8.2); TROPONIN I < 0.02 NG/ML (< 0.10)
--- NOTE | 2019-11-23 14:29 | REP ---
LEFT FOOT SERIES: FOUR VIEWS. HISTORY: Injury in a fall. Left foot pain. FINDINGS: There is diffuse soft tissue swelling in the forefoot. Achilles and plantar calcaneal spurring are noted. No fracture is seen. No opaque foreign body is noted. IMPRESSION: Soft tissue swelling in the distal forefoot. No fracture or subluxation is seen. Electronically Signed by Herman Anthony MD 11/23/2019 03:28 P
[2019-11-23] MEDS ORDERED: EFFE150C2 PO (15:55)
[2019-11-23 16:23] VITALS: BP 140/91
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
--- NOTE | 2019-11-24 19:23 | ECGEPIP ---
[facility] - ED Test Date: 2019-11-23 Pat Name: RAMYA MCCARTNEY Department: Room: - Gender: Female Family Program Specialist: : 2000 Requested By: PARTH ACE Order Number: [id number] Reading MD: Courtney Yo Measurements Intervals [place] Rate: 90 P: 25 [place]: 112 QRS: 30 QRSD: 97 T: 85 QT: 348 QTc: 428 Interpretive Statements SINUS RHYTHM WITH SHORT [place] INTERVAL baseline artifact may affect interpretation NSTTW abnormalities Electronically Signed on 11-24-2019 19:22:54 EDT by Courtney Yo
== END 2019-11-23 16:26 | disposition home or self-care (01) ==
LOC: M ED 11:13
DX: Z76.5 Malingerer [conscious simulation] (principal); F60.3 Borderline personality disorder; F32.9 Major depressive disorder, single episode, unspecified; M25.572 Pain in left ankle and joints of left foot; R07.89 Other chest pain; F43.10 Post-traumatic stress disorder, unspecified; I10 Essential (primary) hypertension; E78.00 Pure hypercholesterolemia, unspecified; K21.9 Gastro-esophageal reflux disease without esophagitis; J45.909 Unspecified asthma, uncomplicated; G43.909 Migraine, unspecified, not intractable, without status migrainosus; Z88.0 Allergy status to penicillin; Z88.2 Allergy status to sulfonamides; Z88.8 Allergy status to other drugs, medicaments and biological substances; Z91.040 Latex allergy status; Z91.018 Allergy to other foods; Z62.810 Personal history of physical and sexual abuse in childhood; Z91.410 Personal history of adult physical and sexual abuse; Z91.5 Personal history of self-harm; Z79.899 Other long term (current) drug therapy; Z79.84 Long term (current) use of oral hypoglycemic drugs
CPT/HCPCS: 36415; 71046; 73630; 80048; 80076; 80307; 82550; 82553; 83690; 84443; 85025; 93005; 99284; G0480

== ENCOUNTER 2019-11-25 23:24 | Emergency (ER) | payer MEDICAID ==
[~2019-11-25] VITALS: Ht 167.6 cm; Wt 142.0 kg
[~2019-11-25 23:24] MED LIST changes: +EFFE150C2 PO
[2019-11-26 00:25] LABS: BASO % 0.5 % (0.0-1.0); EOS # 0.4 10^3/uL (0.0-0.5); EOS % 5.3 % (0.0-3.0); HEMATOCRIT 38.5 % (36.0-47.0); HEMOGLOBIN 12.3 g/dl (12.0-15.5); LYMPH # 2.2 10^3/uL (1.5-5.0); LYMPH % 28.3 % (24.0-44.0); MEAN CORPUSCULAR HEMOGLOBIN 28.9 pg (27.0-33.0); MEAN CORPUSCULAR HGB CONC 31.9 g/dl (32.0-36.5); MEAN CORPUSCULAR VOLUME 90.4 fl (80.0-96.0); MONO # 0.7 10^3/uL (0.0-0.8); MONO % 8.5 % (0.0-5.0); NEUTROPHILS # 4.5 10^3/uL (1.5-8.5); PLATELET COUNT, AUTOMATED 183 10^3/uL (150-450); RED BLOOD COUNT 4.26 10^6/uL (4.00-5.40); WHITE BLOOD COUNT 7.9 10^3/uL (4.0-10.0)
[2019-11-26 00:41] LABS: AMPHETAMINES LEVEL URINE NEGATIVE (NEGATIVE); BARBITURATES URINE NEGATIVE (NEGATIVE); BENZODIAZEPINES URINE NEGATIVE (NEGATIVE); CANNABINOIDS URINE NEGATIVE (NEGATIVE); COCAINE METABOLITE URINE NEGATIVE (NEGATIVE); METHADONE URINE NEGATIVE (NEGATIVE); OPIATES URINE NEGATIVE (NEGATIVE); PHENCYCLIDINE URINE NEGATIVE (NEGATIVE)
[2019-11-26 00:42] LABS: HCG, SERUM QUALITATIVE NEGATIVE (NEGATIVE)
[2019-11-26 01:06] LABS: ACETAMINOPHEN LEVEL < 2.0 UG/ML (10.0-30.0); ALBUMIN 3.6 GM/DL (3.2-5.2); ALT/SGPT 47 U/L (12-78); BILIRUBIN,DIRECT < 0.1 MG/DL (0.0-0.2); BILIRUBIN,TOTAL 0.1 MG/DL (0.2-1.0); BLOOD UREA NITROGEN 8 MG/DL (7-18); CALCIUM LEVEL 8.7 MG/DL (8.5-10.1); CARBON DIOXIDE LEVEL 26 MEQ/L (21-32); CHLORIDE LEVEL 111 MEQ/L (98-107); CPK CREATINE PHOSPHOKINASE 664 U/L (26-192); CREATININE FOR GFR 0.75 MG/DL (0.55-1.30); ETHYL ALCOHOL (ETHANOL) < 0.003 % (0.000-0.010); GLOMERULAR FILTRATION RATE > 60.0 (>60); GLUCOSE, FASTING 114 MG/DL (70-100); POTASSIUM SERUM 3.8 MEQ/L (3.5-5.1); SALICYLATE LEVEL < 1.7 MG/DL (5.0-30.0); SODIUM LEVEL 144 MEQ/L (136-145); TOTAL PROTEIN 6.8 GM/DL (6.4-8.2)
[2019-11-26 03:00] VITALS: BP 122/61
--- NOTE | 2019-11-27 09:04 | ECGEPIP ---
[facility] - ED Test Date: 2019-11-26 Pat Name: RAMYA MCCARTNEY Department: Room: - Gender: Female Chief Meteorologist: : 2000 Requested By: CHAKA TEJEDA Order Number: [id number] Reading MD: Courtney Yo Measurements Intervals [place] Rate: 112 P: -21 [place]: 118 QRS: 31 QRSD: 90 T: 31 QT: 329 QTc: 450 Interpretive Statements SINUS TACHYCARDIA WITH SHORT [place] INTERVAL ABNORMAL RHYTHM ECG NSTTW abnormalities INCREASED RATE 11/23/19 Electronically Signed on 11-27-2019 9:04:19 EDT by Courtney Yo
== END 2019-11-26 05:02 | disposition home or self-care (01) ==
LOC: M ED 23:24
DX: R00.0 Tachycardia, unspecified (principal); T43.592A Poisoning by other antipsychotics and neuroleptics, intentional self-harm, initial encounter; T38.3X2A Poisoning by insulin and oral hypoglycemic [antidiabetic] drugs, intentional self-harm, initial encounter; X58.XXXA Exposure to other specified factors, initial encounter; Y92.89 Other specified places as the place of occurrence of the external cause; Z73.4 Inadequate social skills, not elsewhere classified; Z60.9 Problem related to social environment, unspecified; F60.3 Borderline personality disorder; Z91.018 Allergy to other foods; Z88.0 Allergy status to penicillin; Z88.2 Allergy status to sulfonamides; Z88.8 Allergy status to other drugs, medicaments and biological substances; Z91.040 Latex allergy status; Z79.899 Other long term (current) drug therapy; Z79.84 Long term (current) use of oral hypoglycemic drugs
CPT/HCPCS: 36415; 80048; 80076; 80307; 82550; 83605; 84443; 84703; 85025; 93005; 93041; 94760; 99285; G0480

== ENCOUNTER 2019-12-03 22:19 | Emergency (ER) | payer MEDICAID ==
[~2019-12-03] VITALS: Ht 167.6 cm; Wt 93.6 kg
[2019-12-03 22:27] VITALS: BP 133/74
== END 2019-12-03 23:05 | disposition home or self-care (01) ==
LOC: M ED 22:19
DX: R45.89 Other symptoms and signs involving emotional state (principal); F41.9 Anxiety disorder, unspecified; E66.9 Obesity, unspecified; F60.3 Borderline personality disorder; Z88.2 Allergy status to sulfonamides; Z88.0 Allergy status to penicillin; Z91.040 Latex allergy status; Z91.018 Allergy to other foods

== ENCOUNTER 2019-12-09 04:11 | Emergency (ER) | payer MEDICAID ==
[2019-12-09 04:14] VITALS: BP 137/87
[2019-12-09 06:34] LABS: CHLAMYDIA DNA AMPLIFICATION NEGATIVE (NEGATIVE); GC DNA AMPLIFICATION POSITIVE (NEGATIVE)
[2019-12-10] MEDS ORDERED: MACR100C43 PO (21:59)
== END 2019-12-09 05:02 | disposition home or self-care (01) ==
LOC: M ED 04:11
DX: R10.9 Unspecified abdominal pain (principal); I10 Essential (primary) hypertension; E78.5 Hyperlipidemia, unspecified; E28.2 Polycystic ovarian syndrome; F17.200 Nicotine dependence, unspecified, uncomplicated; F12.10 Cannabis abuse, uncomplicated; Z79.899 Other long term (current) drug therapy; Z79.84 Long term (current) use of oral hypoglycemic drugs; Z88.0 Allergy status to penicillin; Z88.2 Allergy status to sulfonamides; Z91.040 Latex allergy status; Z91.018 Allergy to other foods; Z91.048 Other nonmedicinal substance allergy status

== ENCOUNTER 2019-12-10 20:12 | Emergency (ER) | payer MEDICAID ==
[2019-12-10] MEDS ORDERED: ONDANSETRON 4 MG ORAL DISINTEGRATING TAB PO ONE (20:45)
[2019-12-10 21:21] LABS: BASO % 0.2 % (0.0-1.0); EOS # 0.2 10^3/uL (0.0-0.5); EOS % 1.9 % (0.0-3.0); HEMATOCRIT 38.9 % (36.0-47.0); HEMOGLOBIN 12.2 g/dl (12.0-15.5); LYMPH % 23.4 % (24.0-44.0); MEAN CORPUSCULAR HEMOGLOBIN 28.1 pg (27.0-33.0); MEAN CORPUSCULAR HGB CONC 31.4 g/dl (32.0-36.5); MEAN CORPUSCULAR VOLUME 89.6 fl (80.0-96.0); MONO # 0.6 10^3/uL (0.0-0.8); MONO % 6.8 % (0.0-5.0); NEUTROPHILS # 5.9 10^3/uL (1.5-8.5); NEUTROPHILS % 67.2 % (36.0-66.0); PLATELET COUNT, AUTOMATED 207 10^3/uL (150-450); RED BLOOD COUNT 4.34 10^6/uL (4.00-5.40); WHITE BLOOD COUNT 8.7 10^3/uL (4.0-10.0)
[2019-12-10 21:46] LABS: ALBUMIN 3.6 GM/DL (3.2-5.2); ALT/SGPT 32 U/L (12-78); BILIRUBIN,DIRECT < 0.1 MG/DL (0.0-0.2); BILIRUBIN,TOTAL 0.2 MG/DL (0.2-1.0); BLOOD UREA NITROGEN 10 MG/DL (7-18); CALCIUM LEVEL 8.7 MG/DL (8.5-10.1); CARBON DIOXIDE LEVEL 26 MEQ/L (21-32); CHLORIDE LEVEL 109 MEQ/L (98-107); CREATININE FOR GFR 0.75 MG/DL (0.55-1.30); GLOMERULAR FILTRATION RATE > 60.0 (>60); GLUCOSE, FASTING 109 MG/DL (70-100); LIPASE 111 U/L (73-393); POTASSIUM SERUM 3.6 MEQ/L (3.5-5.1); SODIUM LEVEL 141 MEQ/L (136-145)
[2019-12-10] MEDS ORDERED: MACR100C43 PO (21:59)
[2019-12-10 22:04] VITALS: BP 118/76
== END 2019-12-10 22:03 | disposition home or self-care (01) ==
LOC: M ED 20:12 → EDBD 20:12 → M ED 22:03
DX: N39.0 Urinary tract infection, site not specified (principal); J45.909 Unspecified asthma, uncomplicated; F17.200 Nicotine dependence, unspecified, uncomplicated; E78.00 Pure hypercholesterolemia, unspecified; I10 Essential (primary) hypertension; Z79.899 Other long term (current) drug therapy; Z91.018 Allergy to other foods; Z88.2 Allergy status to sulfonamides; Z91.048 Other nonmedicinal substance allergy status; Z88.8 Allergy status to other drugs, medicaments and biological substances; Z88.0 Allergy status to penicillin
CPT/HCPCS: 36415; 80048; 80076; 81001; 83690; 85025; 87086; 99284; Q0162

== ENCOUNTER 2019-12-24 19:54 | Emergency (ER) | payer MEDICAID ==
[~2019-12-24] VITALS: Ht 167.6 cm; Wt 93.6 kg
[2019-12-24 20:47] LABS: BASO % 0.3 % (0.0-1.0); EOS # 0.3 10^3/uL (0.0-0.5); EOS % 4.5 % (0.0-3.0); HEMATOCRIT 38.3 % (36.0-47.0); HEMOGLOBIN 11.7 g/dl (12.0-15.5); LYMPH # 1.8 10^3/uL (1.5-5.0); LYMPH % 26.7 % (24.0-44.0); MEAN CORPUSCULAR HEMOGLOBIN 28.1 pg (27.0-33.0); MEAN CORPUSCULAR HGB CONC 30.5 g/dl (32.0-36.5); MEAN CORPUSCULAR VOLUME 91.8 fl (80.0-96.0); MONO # 0.5 10^3/uL (0.0-0.8); MONO % 7.6 % (0.0-5.0); NEUTROPHILS # 4.1 10^3/uL (1.5-8.5); PLATELET COUNT, AUTOMATED 187 10^3/uL (150-450); RED BLOOD COUNT 4.17 10^6/uL (4.00-5.40); WHITE BLOOD COUNT 6.9 10^3/uL (4.0-10.0)
[2019-12-24 21:06] LABS: BLOOD UREA NITROGEN 12 MG/DL (7-18); CALCIUM LEVEL 8.6 MG/DL (8.5-10.1); CARBON DIOXIDE LEVEL 30 MEQ/L (21-32); CHLORIDE LEVEL 108 MEQ/L (98-107); CPK CREATINE PHOSPHOKINASE 129 U/L (26-192); CREATININE FOR GFR 0.72 MG/DL (0.55-1.30); GLOMERULAR FILTRATION RATE > 60.0 (>60); GLUCOSE, FASTING 89 MG/DL (70-100); POTASSIUM SERUM 4.2 MEQ/L (3.5-5.1); SODIUM LEVEL 143 MEQ/L (136-145)
[2019-12-24 21:24] VITALS: BP 139/62
--- NOTE | 2019-12-25 08:17 | REP ---
Chest x-ray: Two views. History: Chest pain . Comparison study: November 23, 2019 . Findings: The lungs are well inflated and free of infiltrate. The pleural angles are sharp. The heart size is normal. Pulmonary vasculature is not increased. No significant bony abnormality is seen. Impression: Negative chest x-ray. Electronically Signed by Herman Anthony MD 12/25/2019 08:08 A
== END 2019-12-24 21:27 | disposition home or self-care (01) ==
LOC: M ED 19:54 → EDBD 19:54 → M ED 21:27
DX: R07.89 Other chest pain (principal); R05 Cough; I10 Essential (primary) hypertension; E28.2 Polycystic ovarian syndrome; E78.5 Hyperlipidemia, unspecified; Z79.899 Other long term (current) drug therapy; Z79.3 Long term (current) use of hormonal contraceptives; Z88.0 Allergy status to penicillin; Z88.1 Allergy status to other antibiotic agents; Z88.2 Allergy status to sulfonamides; Z88.8 Allergy status to other drugs, medicaments and biological substances; Z91.018 Allergy to other foods; Z91.040 Latex allergy status; Z91.048 Other nonmedicinal substance allergy status; F17.210 Nicotine dependence, cigarettes, uncomplicated

== ENCOUNTER 2019-12-31 19:25 | Emergency (ER) | payer MEDICAID ==
[2019-12-31 19:32] VITALS: BP 122/84
[2019-12-31] MEDS ORDERED: PRAZ1CAP PO (19:35)
[2019-12-31] MEDS ORDERED: BENZ2TAB5 PO (19:35)
[2019-12-31] MEDS ORDERED: IBUPROFEN 600 MG TAB PO ONE (20:00)
--- NOTE | 2019-12-31 23:15 | REP ---
LEFT ANKLE, FOUR VIEWS: There is no evidence of an acute fracture, dislocation, or intrinsic bone disease. IMPRESSION: No fracture or dislocation. Electronically Signed by Tapan Hicks MD 01/01/2020 12:15 P
--- NOTE | 2019-12-31 23:16 | REP ---
LEFT FOOT, FOUR VIEWS: There is no evidence of an acute fracture, dislocation, or intrinsic bone disease. IMPRESSION: No fracture or dislocation. Electronically Signed by Tapan Hicks MD 01/01/2020 12:15 P
== END 2019-12-31 20:13 | disposition home or self-care (01) ==
LOC: M ED 19:25
DX: S93.402A Sprain of unspecified ligament of left ankle, initial encounter (principal); W22.8XXA Striking against or struck by other objects, initial encounter; Y92.89 Other specified places as the place of occurrence of the external cause; I10 Essential (primary) hypertension; E28.2 Polycystic ovarian syndrome; E78.5 Hyperlipidemia, unspecified; Z79.899 Other long term (current) drug therapy; Z88.0 Allergy status to penicillin; Z88.1 Allergy status to other antibiotic agents; Z88.2 Allergy status to sulfonamides; Z88.8 Allergy status to other drugs, medicaments and biological substances; Z91.018 Allergy to other foods; Z91.040 Latex allergy status; Z91.048 Other nonmedicinal substance allergy status; F17.210 Nicotine dependence, cigarettes, uncomplicated

== ENCOUNTER 2020-01-02 00:35 | Emergency (ER) | payer MEDICAID ==
[~2020-01-02] VITALS: Ht 167.6 cm; Wt 93.6 kg
[2020-01-02 02:28] LABS: BASO % 0.4 % (0.0-1.0); EOS # 0.3 10^3/uL (0.0-0.5); EOS % 4.3 % (0.0-3.0); HEMATOCRIT 35.8 % (36.0-47.0); HEMOGLOBIN 11.4 g/dl (12.0-15.5); LYMPH # 2.1 10^3/uL (1.5-5.0); LYMPH % 30.9 % (24.0-44.0); MEAN CORPUSCULAR HEMOGLOBIN 28.2 pg (27.0-33.0); MEAN CORPUSCULAR HGB CONC 31.8 g/dl (32.0-36.5); MEAN CORPUSCULAR VOLUME 88.6 fl (80.0-96.0); MONO # 0.6 10^3/uL (0.0-0.8); MONO % 8.5 % (0.0-5.0); NEUTROPHILS # 3.8 10^3/uL (1.5-8.5); NEUTROPHILS % 55.5 % (36.0-66.0); PLATELET COUNT, AUTOMATED 170 10^3/uL (150-450); RED BLOOD COUNT 4.04 10^6/uL (4.00-5.40); WHITE BLOOD COUNT 6.9 10^3/uL (4.0-10.0)
[2020-01-02 02:57] LABS: ALBUMIN 3.5 GM/DL (3.2-5.2); ALT/SGPT 36 U/L (12-78); BILIRUBIN,DIRECT < 0.1 MG/DL (0.0-0.2); BILIRUBIN,TOTAL 0.1 MG/DL (0.2-1.0); BLOOD UREA NITROGEN 16 MG/DL (7-18); CALCIUM LEVEL 8.4 MG/DL (8.5-10.1); CARBON DIOXIDE LEVEL 26 MEQ/L (21-32); CHLORIDE LEVEL 109 MEQ/L (98-107); CREATININE FOR GFR 0.72 MG/DL (0.55-1.30); GLOMERULAR FILTRATION RATE > 60.0 (>60); GLUCOSE, FASTING 102 MG/DL (70-100); LIPASE 84 U/L (73-393); POTASSIUM SERUM 3.9 MEQ/L (3.5-5.1); SODIUM LEVEL 142 MEQ/L (136-145); TOTAL PROTEIN 6.6 GM/DL (6.4-8.2)
[2020-01-02 03:32] LABS: HCG, SERUM QUALITATIVE NEGATIVE (NEGATIVE)
[2020-01-02] MEDS ORDERED: ACETAMINOPHEN TAB 650MG DOSE (2X325MG) PO ONE (03:45)
[2020-01-02 04:05] VITALS: BP 136/70
--- NOTE | 2020-01-02 10:36 | REP ---
CT ABDOMEN AND PELVIS WITHOUT ORAL OR IV CONTRAST: CT abdomen and pelvis performed without oral or IV contrast. Sagittal and coronal reconstruction images are performed. Visualized lung bases demonstrate no infiltrate. The study is limited due to motion. Liver is enlarged measuring about 20 cm in length with no gross intrinsic abnormality. Spleen is mildly enlarged with no intrinsic abnormality measuring 15.2 cm in length. The adrenals, pancreas and kidneys are unremarkable. There is no renal, ureteral or bladder calculus. There is no hydroureteronephrosis. There is no abdominal aortic aneurysm. There is no adenopathy. There is no free air or free fluid. There is no bowel wall thickening. There are two tiny fat-containing ventral hernias with no associated inflammation. No pelvic mass is seen. Urinary bladder is mildly distended and grossly unremarkable. There appears to be a dominant follicle of the right ovary. There is a small hiatal hernia. Gallbladder is markedly contracted. IMPRESSION: Small hiatal hernia and two small ventral hernias containing fat. Mild hepatosplenomegaly with no renal or ureteral calculus and no hydroureteronephrosis. Preliminary report provided by [facility] at the time of the exam. Electronically Signed by Tapan Hicks MD 01/02/2020 04:40 P
== END 2020-01-02 04:42 | disposition home or self-care (01) ==
LOC: M ED 00:35
DX: R10.9 Unspecified abdominal pain (principal); F33.9 Major depressive disorder, recurrent, unspecified; F43.10 Post-traumatic stress disorder, unspecified; E28.2 Polycystic ovarian syndrome; F60.3 Borderline personality disorder; E66.9 Obesity, unspecified; Z79.899 Other long term (current) drug therapy; Z88.0 Allergy status to penicillin; Z88.1 Allergy status to other antibiotic agents; Z88.2 Allergy status to sulfonamides; Z88.8 Allergy status to other drugs, medicaments and biological substances; Z91.018 Allergy to other foods; Z91.040 Latex allergy status; Z91.048 Other nonmedicinal substance allergy status; F17.210 Nicotine dependence, cigarettes, uncomplicated

== ENCOUNTER 2020-01-03 21:51 | Emergency (ER) | payer MEDICAID ==
[~2020-01-03 21:51] MED LIST changes: -CETI10CH PO; -DIPH50CA29 PO; -HYDR50CA2 PO; -MED REC COMMENT; -MIRTAZAPINE; -ONDA-83 PO; -SUCR1TA PO; -SUCR1TAB56 PO; -VENL75CA47 PO
[2020-01-03 22:03] VITALS: BP 125/80
== END 2020-01-03 22:40 | disposition home or self-care (01) ==
LOC: M ED 21:51
DX: Z60.9 Problem related to social environment, unspecified (principal); F60.9 Personality disorder, unspecified; F79 Unspecified intellectual disabilities; Z79.899 Other long term (current) drug therapy; Z88.0 Allergy status to penicillin; Z88.1 Allergy status to other antibiotic agents; Z88.2 Allergy status to sulfonamides; Z88.8 Allergy status to other drugs, medicaments and biological substances; Z91.018 Allergy to other foods; Z91.040 Latex allergy status; Z91.048 Other nonmedicinal substance allergy status

== ENCOUNTER → 2020-01-03 | Outpatient (REF) | payer MEDICAID ==
[~2020-01-03] MED LIST changes: +CETI10CH PO; +DIPH50CA29 PO; +HYDR50CA2 PO; +MED REC COMMENT; +MIRTAZAPINE; +ONDA-83 PO; +SUCR1TA PO; +SUCR1TAB56 PO; +VENL75CA47 PO
[2020-01-03 17:08] LABS: CHOLESTEROL RISK RATIO 4.75 (<5); THYROID STIMULATING HORMONE 1.93 uIU/ML (0.358-3.740)
[2020-01-03 17:09] LABS: TOTAL 25(OH) VITAMIN D 26.3 NG/ML (30.0-100.0)
== END ==
LOC: M LAB REF 16:17
PROVIDERS: ATTEND Family Medicine
DX: E28.2 Polycystic ovarian syndrome (principal)

== ENCOUNTER 2020-01-04 05:19 | Emergency (ER) | payer MEDICAID ==
[~2020-01-04] VITALS: Ht 167.6 cm; Wt 109.1 kg
[2020-01-04] MEDS ORDERED: NS 1,000 ML IV ONE (06:15)
--- NOTE | 2020-01-04 06:31 | ECGEPIP ---
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
[2020-01-04 07:08] LABS: BASO % 0.4 % (0.0-1.0); EOS # 0.2 10^3/uL (0.0-0.5); EOS % 3.8 % (0.0-3.0); HEMATOCRIT 33.7 % (36.0-47.0); HEMOGLOBIN 10.5 g/dl (12.0-15.5); LYMPH # 1.6 10^3/uL (1.5-5.0); LYMPH % 29.4 % (24.0-44.0); MEAN CORPUSCULAR HEMOGLOBIN 27.9 pg (27.0-33.0); MEAN CORPUSCULAR HGB CONC 31.2 g/dl (32.0-36.5); MEAN CORPUSCULAR VOLUME 89.6 fl (80.0-96.0); MONO # 0.4 10^3/uL (0.0-0.8); MONO % 7.8 % (0.0-5.0); NEUTROPHILS # 3.2 10^3/uL (1.5-8.5); NEUTROPHILS % 58.2 % (36.0-66.0); RED BLOOD COUNT 3.76 10^6/uL (4.00-5.40); WHITE BLOOD COUNT 5.5 10^3/uL (4.0-10.0)
[2020-01-04 07:22] LABS: PLATELET COUNT, AUTOMATED 92 10^3/uL (150-450)
[2020-01-04 07:23] LABS: AMPHETAMINES LEVEL URINE NEGATIVE (NEGATIVE); BARBITURATES URINE NEGATIVE (NEGATIVE); BENZODIAZEPINES URINE NEGATIVE (NEGATIVE); CANNABINOIDS URINE NEGATIVE (NEGATIVE); COCAINE METABOLITE URINE NEGATIVE (NEGATIVE); METHADONE URINE NEGATIVE (NEGATIVE); OPIATES URINE NEGATIVE (NEGATIVE); PHENCYCLIDINE URINE NEGATIVE (NEGATIVE)
[2020-01-04 07:47] LABS: ALBUMIN 3.3 GM/DL (3.2-5.2); ALT/SGPT 29 U/L (12-78); BILIRUBIN,TOTAL 0.2 MG/DL (0.2-1.0); BLOOD UREA NITROGEN 8 MG/DL (7-18); CALCIUM LEVEL 8.2 MG/DL (8.5-10.1); CARBON DIOXIDE LEVEL 25 MEQ/L (21-32); CHLORIDE LEVEL 110 MEQ/L (98-107); CREATININE FOR GFR 0.65 MG/DL (0.55-1.30); FREE T4 1.02 NG/DL (0.76-1.46); GLOMERULAR FILTRATION RATE > 60.0 (>60); GLUCOSE, FASTING 82 MG/DL (70-100); SODIUM LEVEL 142 MEQ/L (136-145); TOTAL PROTEIN 6.5 GM/DL (6.4-8.2)
[2020-01-04 08:38] LABS: ACETAMINOPHEN LEVEL < 2.0 UG/ML (10.0-30.0); CPK CREATINE PHOSPHOKINASE 124 U/L (26-192); SALICYLATE LEVEL < 1.7 MG/DL (5.0-30.0)
[2020-01-04 11:37] VITALS: BP 139/82
[2020-01-05] MEDS ORDERED: SUCR1TAB56 PO (22:39)
[2020-01-05] MEDS ORDERED: MACR100C43 PO (22:39)
== END 2020-01-04 12:00 | disposition home or self-care (01) ==
LOC: M ED 05:19
DX: F19.129 Other psychoactive substance abuse with intoxication, unspecified (principal); J45.909 Unspecified asthma, uncomplicated; E28.2 Polycystic ovarian syndrome; F33.9 Major depressive disorder, recurrent, unspecified; F41.9 Anxiety disorder, unspecified; F43.10 Post-traumatic stress disorder, unspecified; F60.3 Borderline personality disorder; K21.9 Gastro-esophageal reflux disease without esophagitis; Z79.899 Other long term (current) drug therapy; Z88.0 Allergy status to penicillin; Z88.1 Allergy status to other antibiotic agents; Z88.2 Allergy status to sulfonamides; Z88.8 Allergy status to other drugs, medicaments and biological substances; Z91.018 Allergy to other foods; Z91.040 Latex allergy status; Z91.041 Radiographic dye allergy status; F17.210 Nicotine dependence, cigarettes, uncomplicated; F12.20 Cannabis dependence, uncomplicated
CPT/HCPCS: 80053; 80307; 82550; 84439; 84443; 85025; 85049; 85055; 93005; 96360; 99284; G0480

== ENCOUNTER 2020-01-04 19:00 | Emergency (ER) | payer MEDICAID ==
[~2020-01-04] VITALS: Ht 167.6 cm; Wt 93.6 kg
[2020-01-04 19:09] VITALS: BP 136/78
[2020-01-05] MEDS ORDERED: SUCR1TAB56 PO (22:39)
[2020-01-05] MEDS ORDERED: MACR100C43 PO (22:39)
== END 2020-01-04 20:04 | disposition home or self-care (01) ==
LOC: M ED 19:00
DX: Z60.9 Problem related to social environment, unspecified (principal); F79 Unspecified intellectual disabilities; Z76.5 Malingerer [conscious simulation]; F60.3 Borderline personality disorder; Z79.899 Other long term (current) drug therapy; Z88.0 Allergy status to penicillin; Z88.1 Allergy status to other antibiotic agents; Z88.2 Allergy status to sulfonamides; Z88.8 Allergy status to other drugs, medicaments and biological substances; Z91.018 Allergy to other foods; Z91.040 Latex allergy status; Z91.048 Other nonmedicinal substance allergy status

== ENCOUNTER 2020-01-05 21:24 | Emergency (ER) | payer MEDICAID ==
[2020-01-05] MEDS ORDERED: GI COCKTAIL 50ML BTL(HYOSCYAMINE/MAALOX/LIDOCAINE VISCOUS)(1:3:1) PO ONE (21:45)
[2020-01-05 22:19] LABS: BASO % 0.4 % (0.0-1.0); EOS # 0.3 10^3/uL (0.0-0.5); EOS % 4.4 % (0.0-3.0); HEMATOCRIT 36.4 % (36.0-47.0); HEMOGLOBIN 11.3 g/dl (12.0-15.5); LYMPH # 1.8 10^3/uL (1.5-5.0); LYMPH % 25.7 % (24.0-44.0); MEAN CORPUSCULAR HEMOGLOBIN 27.7 pg (27.0-33.0); MEAN CORPUSCULAR VOLUME 89.2 fl (80.0-96.0); MONO # 0.7 10^3/uL (0.0-0.8); MONO % 9.5 % (0.0-5.0); NEUTROPHILS # 4.1 10^3/uL (1.5-8.5); NEUTROPHILS % 59.4 % (36.0-66.0); PLATELET COUNT, AUTOMATED 186 10^3/uL (150-450); RED BLOOD COUNT 4.08 10^6/uL (4.00-5.40); WHITE BLOOD COUNT 6.9 10^3/uL (4.0-10.0)
[2020-01-05 22:28] LABS: ALBUMIN 3.4 GM/DL (3.2-5.2); ALT/SGPT 29 U/L (12-78); BILIRUBIN,TOTAL 0.2 MG/DL (0.2-1.0); BLOOD UREA NITROGEN 8 MG/DL (7-18); CALCIUM LEVEL 8.2 MG/DL (8.5-10.1); CARBON DIOXIDE LEVEL 26 MEQ/L (21-32); CHLORIDE LEVEL 110 MEQ/L (98-107); CREATININE FOR GFR 0.65 MG/DL (0.55-1.30); GLOMERULAR FILTRATION RATE > 60.0 (>60); GLUCOSE, FASTING 90 MG/DL (70-100); HCG, SERUM QUANTITATIVE < 1.0 MIU/ML; SODIUM LEVEL 141 MEQ/L (136-145); TOTAL PROTEIN 6.7 GM/DL (6.4-8.2)
[2020-01-05] MEDS ORDERED: MACR100C43 PO (22:39)
[2020-01-05] MEDS ORDERED: SUCR1TAB56 PO (22:39)
[2020-01-05] MEDS ORDERED: NITROFURANTOIN (MACROBID) 100 MG CAP PO ONE (22:45)
[2020-01-05 23:18] VITALS: BP 135/87
== END 2020-01-05 23:20 | disposition home or self-care (01) ==
LOC: M ED 21:24
DX: K29.70 Gastritis, unspecified, without bleeding (principal); N39.0 Urinary tract infection, site not specified; J45.909 Unspecified asthma, uncomplicated; F43.10 Post-traumatic stress disorder, unspecified; Z79.899 Other long term (current) drug therapy; Z88.0 Allergy status to penicillin; Z88.1 Allergy status to other antibiotic agents; Z88.2 Allergy status to sulfonamides; Z88.8 Allergy status to other drugs, medicaments and biological substances; Z91.018 Allergy to other foods; Z91.040 Latex allergy status; Z91.048 Other nonmedicinal substance allergy status

== ENCOUNTER 2020-01-10 17:44 | Emergency (ER) | payer MEDICAID ==
[~2020-01-10] VITALS: Ht 167.6 cm; Wt 150.8 kg
[~2020-01-10 17:44] MED LIST changes: +SUCR1TAB56 PO
[2020-01-10] MEDS ORDERED: HYDR50CA2 PO (17:53)
[2020-01-10] MEDS ORDERED: DIPH50CA29 PO (17:53)
[2020-01-10] MEDS ORDERED: IBUP-1022 PO (17:53)
[2020-01-10 19:53] VITALS: BP 144/74
== END 2020-01-10 19:56 | disposition home or self-care (01) ==
LOC: M ED 17:44
DX: F43.20 Adjustment disorder, unspecified (principal); F33.9 Major depressive disorder, recurrent, unspecified; F60.3 Borderline personality disorder; Z79.899 Other long term (current) drug therapy; Z88.0 Allergy status to penicillin; Z88.1 Allergy status to other antibiotic agents; Z88.2 Allergy status to sulfonamides; Z88.8 Allergy status to other drugs, medicaments and biological substances; Z91.018 Allergy to other foods; Z91.040 Latex allergy status; Z91.048 Other nonmedicinal substance allergy status

== ENCOUNTER 2020-01-12 01:46 | Emergency (ER) | payer MEDICAID ==
[~2020-01-12 01:46] MED LIST changes: +DIPH50CA29 PO; +HYDR50CA2 PO
[2020-01-12 01:52] VITALS: BP 139/65
[2020-01-12] MEDS ORDERED: HALO5TA PO (22:32)
[2020-01-12] MEDS ORDERED: METF500T13 PO (22:32)
[2020-01-12] MEDS ORDERED: MIRTAZAPINE (22:32)
[2020-01-12] MEDS ORDERED: ONDA-83 PO (22:32)
[2020-01-13] MEDS ORDERED: MACR100C43 PO (02:05)
[2020-01-13] MEDS ORDERED: CETI10CH PO (02:05)
[2020-01-13] MEDS ORDERED: SUCR1TA PO (02:07)
[2020-01-13] MEDS ORDERED: VENL150C43 PO (02:07)
[2020-01-13] MEDS ORDERED: REME15TA PO (07:02)
[2020-01-13] MEDS ORDERED: VENL75CA47 PO (07:02)
[2020-01-13] MEDS ORDERED: MED REC COMMENT (09:44)
== END 2020-01-12 02:16 | disposition home or self-care (01) ==
LOC: M ED 01:46
DX: Z73.89 Other problems related to life management difficulty (principal); F60.3 Borderline personality disorder; Z79.899 Other long term (current) drug therapy; Z88.0 Allergy status to penicillin; Z88.1 Allergy status to other antibiotic agents; Z88.2 Allergy status to sulfonamides; Z88.8 Allergy status to other drugs, medicaments and biological substances; Z91.018 Allergy to other foods; Z91.040 Latex allergy status; Z91.048 Other nonmedicinal substance allergy status

== ENCOUNTER 2020-01-12 18:25 | Inpatient (IN) | payer MEDICAID ==
[~2020-01-12] VITALS: Ht 167.6 cm; Wt 94.1 kg
[2020-01-12 20:30] LABS: HEMATOCRIT 38.7 % (36.0-47.0); HEMOGLOBIN 12.1 g/dl (12.0-15.5); MEAN CORPUSCULAR HEMOGLOBIN 28.3 pg (27.0-33.0); MEAN CORPUSCULAR HGB CONC 31.3 g/dl (32.0-36.5); MEAN CORPUSCULAR VOLUME 90.4 fl (80.0-96.0); PLATELET COUNT, AUTOMATED 195 10^3/uL (150-450); RED BLOOD COUNT 4.28 10^6/uL (4.00-5.40); WHITE BLOOD COUNT 8.2 10^3/uL (4.0-10.0)
[2020-01-12 21:01] LABS: HCG, SERUM QUALITATIVE NEGATIVE (NEGATIVE)
[2020-01-12 21:03] LABS: AMPHETAMINES LEVEL URINE NEGATIVE (NEGATIVE); BARBITURATES URINE NEGATIVE (NEGATIVE); BENZODIAZEPINES URINE NEGATIVE (NEGATIVE); CANNABINOIDS URINE NEGATIVE (NEGATIVE); COCAINE METABOLITE URINE NEGATIVE (NEGATIVE); METHADONE URINE NEGATIVE (NEGATIVE); OPIATES URINE NEGATIVE (NEGATIVE); PHENCYCLIDINE URINE NEGATIVE (NEGATIVE)
[2020-01-12 21:15] LABS: ACETAMINOPHEN LEVEL < 2.0 UG/ML (10.0-30.0); ALBUMIN 3.5 GM/DL (3.2-5.2); ALT/SGPT 29 U/L (12-78); BILIRUBIN,DIRECT < 0.1 MG/DL (0.0-0.2); BILIRUBIN,TOTAL 0.1 MG/DL (0.2-1.0); BLOOD UREA NITROGEN 13 MG/DL (7-18); CALCIUM LEVEL 8.2 MG/DL (8.5-10.1); CARBON DIOXIDE LEVEL 28 MEQ/L (21-32); CHLORIDE LEVEL 110 MEQ/L (98-107); CREATININE FOR GFR 0.77 MG/DL (0.55-1.30); ETHYL ALCOHOL (ETHANOL) < 0.003 % (0.000-0.010); GLOMERULAR FILTRATION RATE > 60.0 (>60); GLUCOSE, FASTING 108 MG/DL (70-100); POTASSIUM SERUM 4.3 MEQ/L (3.5-5.1); SALICYLATE LEVEL < 1.7 MG/DL (5.0-30.0); SODIUM LEVEL 146 MEQ/L (136-145)
[2020-01-12] MEDS ORDERED: KETOROLAC 60 MG/2 ML VIAL IM ONE (21:15)
[2020-01-12] MEDS ORDERED: ONDANSETRON 4 MG ORAL DISINTEGRATING TAB PO ONE (21:15)
[2020-01-12] MEDS ORDERED: LORazepam 1 MG TAB PO ONE (21:15)
[2020-01-12] MEDS ORDERED: METF500T13 PO (22:32)
[2020-01-12] MEDS ORDERED: MIRTAZAPINE (22:32)
[2020-01-12] MEDS ORDERED: HALO5TA PO (22:32)
[2020-01-12] MEDS ORDERED: ONDA-83 PO (22:32)
[2020-01-13] MEDS ORDERED: ACETAMINOPHEN TAB 650MG DOSE (2X325MG) PO PRN (00:30)
[2020-01-13] MEDS ORDERED: MAALOX 30 ML SUSP *UDC PO PRN (00:30)
[2020-01-13] MEDS ORDERED: MOM 30ML SUSPENSION UDC PO PRN (00:30)
[2020-01-13] MEDS ORDERED: OLANZapine ORAL DISINTEGRATING TAB 5MG PO PRN (00:30)
[2020-01-13] MEDS ORDERED: NICOTINE 21MG/24HR 1 EA TRANSDERMAL TD PRN (00:30)
[2020-01-13] MEDS ORDERED: CETI10CH PO (02:05)
[2020-01-13] MEDS ORDERED: MACR100C43 PO (02:05)
[2020-01-13] MEDS ORDERED: VENL150C43 PO (02:07)
[2020-01-13] MEDS ORDERED: SUCR1TA PO (02:07)
[2020-01-13] MEDS ORDERED: REME15TA PO (07:02)
[2020-01-13] MEDS ORDERED: VENL75CA47 PO (07:02)
[2020-01-13] MEDS ORDERED: MED REC COMMENT (09:44)
--- NOTE | 2020-01-13 14:23 | HPEPDOC ---
General Date of Admission January 13, 2020 at 00:25 Date of Service: January 13, 2020 Chief Complaint The patient is a 19-year-old female admitted with a reason for visit of Unspecified Depressive Disorder. Source: Patient Exam Limitations: Clinical conditions Timing/Duration: Day(s) Severity: Moderate History of Present Illness History of Present Illness Patient is 19 years old female with past medical history of hypertension, hyperlipidemia, PCOS, anxiety, depression, bipolar disorder who was admitted in the hospital with suicidal ideation. She denied any chest pain, breathing problem, GI problem or dysuria. He denies fever, chills, nausea, vomiting, shortness of breath, palpitations, diarrhea or dysuria Home Medications Scheduled Benztropine Mesylate (Benztropine Mesylate) 2 Mg Tablet, 2 MG PO DAILY for , (Reported) Cetirizine HCl (Cetirizine HCl) 10 Mg Tab.chew, 10 MG PO DAILY for allergy symptoms, (Reported) Diphenhydramine HCl (Banophen) 50 Mg Capsule, 50 MG PO DAILY for , (Reported) Haloperidol (Haloperidol) 5 Mg Tablet, 5 MG PO DAILY for , (Reported) Hydroxyzine Pamoate (Hydroxyzine Pamoate) 50 Mg Capsule, 50 MG PO Q6H for , (Reported) Metformin HCl (Metformin HCl) 500 Mg Tablet, 500 MG PO TID for , (Reported) Prazosin Hcl (Prazosin HCl) 1 Mg Capsule, 2 MG PO QHS for , (Reported) Sucralfate (Sucralfate) 1 Gm Tablet, 1 GRAM PO QID for , (Reported) Venlafaxine HCl (Venlafaxine HCl ER) 75 Mg Cap.er.24h, 150 MG PO DAILY for MOOD, (Reported) Scheduled PRN Ibuprofen (Ibuprofen) 600 Mg Tablet, 600 MG PO TID PRN for PAIN, (Reported) Mirtazapine (Remeron) 15 Mg Tablet, 15 MG PO QHS PRN for INSOMNIA, (Reported) Ondansetron HCl (Ondansetron HCl) 4 Mg Tablet, 4 MG PO Q6H PRN for NAUSEA, (Reported) Miscellaneous Medications [Med Rec Comment] , for ., (Reported) MED LIST OBTAINED FROM PHARMACY AND EXTERNAL MED HISTORY Allergies Coded Allergies: RUBBER (Verified Allergy, Intermediate, 12/31/19) Mushroom (Verified Allergy, Unknown, 12/31/19) Penicillins (Verified Allergy, Unknown, 12/31/19) Sulfa (Sulfonamide Antibiotics) (Verified Allergy, Unknown, 12/31/19) TURKEY (Verified Allergy, Unknown, 12/31/19) emtricitabine (Verified Allergy, Unknown, 12/31/19) latex (Verified Allergy, Unknown, 12/31/19) raltegravir (Verified Allergy, Unknown, 12/31/19) sulfamethoxazole (Verified Allergy, Unknown, 12/31/19) tomato (Verified Allergy, Unknown, 12/31/19) trimethoprim (Verified Allergy, Unknown, 12/31/19) Past Medical History Medical History PCOS, depression, anxiety, hyperlipidemia, hypertension, bipolar disorder Family History Patient refused to provide family history Social History * Smoker: current smoker Alcohol: occationally Drugs: denies A-FIB/CHADSVASC A-FIB History Current/History of A-Fib/PAF?: No Current PO Anticoag Therapy: No Review of Systems Constitutional: Denies: Chills, Fever Eyes: Denies: Pain ENT: Denies: Head Aches Skin: Denies: Rash, Lesions Pulmonary: Denies: Dyspnea, Cough Cardiovascular: Denies: Chest Pain Gastrointestinal: Denies: Nausea, Vomiting Genitourinary: Denies: Dysuria Hematologic: Denies: Bruising, Bleeding Excessively Endocrine: Denies: Polydipsia, Polyphagia Neurological: Denies: Weakness, Numbness Psych: Reports: Anxiety, Depression, Anger Physical Examination General Exam: Positive: Moderate Distress Eye Exam: Positive: PERRLA ENT Exam: Positive: Atraumatic Neck Exam: Positive: Supple; Negative: JVD Chest Exam: Positive: Clear to auscultation Heart Exam: Positive: Rate Normal; Negative: Tachycardic Telemetry: Positive: No significant arrhythmia Abdomen Exam: Positive: Normal bowel sounds Extremity Exam: Negative: Clubbing, Cyanosis Skin Exam: Positive: Nl turgor and temperature Neuro Exam: Positive: Normal Gait, Strength at 5/5 X4 ext, Cranial Nerves 3-12 NL Psych Exam: Positive: Anxiety Vital Signs Vital Signs Date Time Temp Pulse Resp B/P (MAP) Pulse Ox O2 Delivery O2 Flow Rate FiO2 01/13/20 01:00 98.0 84 17 112/63 (79) 100 01/12/20 22:45 Room Air Laboratory Data Labs 24H Laboratory Tests 2 01/12/20 20:17: Nucleated Red Blood Cells % (auto) 0.0, Anion Gap 8, Glomerular Filtration Rate > 60.0, Calcium Level 8.2L, Total Bilirubin 0.1L, Direct Bilirubin < 0.1, Aspartate Amino Transf (AST/SGOT) 15, Alanine Aminotransferase (ALT/SGPT) 29, Alkaline Phosphatase 98, Total Protein 7.0, Albumin 3.5, Albumin/Globulin Ratio 1.0L, Thyroid Stimulating Hormone (TSH) 2.190, Human Chorionic Gonadotropin, Qual NEGATIVE, Salicylates Level < 1.7L, Urine Opiates Screen NEGATIVE, Urine Me thadone Screen NEGATIVE, Acetaminophen Level < 2.0L, Urine Barbiturates Screen NEGATIVE, Urine Phencyclidine Screen NEGATIVE, Urine Amphetamines Screen NEGATIVE, Urine Benzodiazepines Screen NEGATIVE, Urine Cocaine Metabolite Screen NEGATIVE, Urine Cannabinoids Screen NEGATIVE, Ethyl Alcohol Level < 0.003 CBC/BMP Laboratory Tests 01/12/20 20:17 Assessment/Plan Patient is 19 years old female with past medical history of hypertension, hyperlipidemia, PCOS, anxiety, depression, bipolar disorder who was admitted in the hospital with suicidal ideation. She denied any chest pain, breathing problem, GI problem or dysuria. He denies fever, chills, nausea, vomiting, shortness of breath, palpitations, diarrhea or dysuria Problems (1) PCOS (polycystic ovarian syndrome) Status: Chronic Problem Text: Continue metformin (2) Hypertension Status: Chronic Problem Text: Blood pressure under control continue to monitor (3) Hyperlipidemia Status: Chronic Problem Text: Atorvastatin 20 mg Will check lipid panel (4) Morbid obesity Status: Chronic Problem Text: Complicating care BMI 50 Patient will benefit from bariatric surgery (5) Depression with suicidal ideation Status: Acute Problem Text: We'll defer treatment psych team Plan / VTE VTE Prophylaxis Ordered?: Yes VTE Exclusion Mechanical Proph: Low Risk for VTE SHARIFA GANN DO January 13, 2020 14:23
[2020-01-13] MEDS ORDERED: hydrOXYzine 50 MG TAB PO PRN (16:45)
[2020-01-13] MEDS: ATORVASTATIN 20 MG TAB PO SCH (17:02)
[2020-01-13] MEDS: metFORMIN (GLUCOPHAGE) 500 MG TAB PO SCH (17:03)
[2020-01-13] MEDS: PRAZOSIN 1 MG CAP PO SCH (20:10)
[2020-01-14 06:13] VITALS: BP 119/57
[2020-01-14] MEDS: CETIRIZINE (ZyrTEC) 10 MG TAB PO SCH (08:00)
[2020-01-14] MEDS: ATORVASTATIN 20 MG TAB PO SCH (08:00)
[2020-01-14] MEDS: metFORMIN (GLUCOPHAGE) 500 MG TAB PO SCH ×3 (08:00→17:12)
[2020-01-14] MEDS ORDERED: ONDANSETRON 4 MG TAB PO PRN (09:00)
[2020-01-14] MEDS ORDERED: VENLAFAXINE **XR** 75MG CAPSULE PO SCH (09:00)
[2020-01-14 09:17] LABS: CHOLESTEROL RISK RATIO 5.529 (<5)
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
[2020-01-14 15:16] VITALS: BP 136/62
[2020-01-14 20:22] VITALS: BP 136/62
[2020-01-14] MEDS: PRAZOSIN 1 MG CAP PO SCH (20:22)
[2020-01-15] MEDS: metFORMIN (GLUCOPHAGE) 500 MG TAB PO SCH (07:40)
[2020-01-15] MEDS: ATORVASTATIN 20 MG TAB PO SCH (07:41)
[2020-01-15] MEDS: CETIRIZINE (ZyrTEC) 10 MG TAB PO SCH (07:41)
[2020-01-15] MEDS ORDERED: VENLAFAXINE **XR** 75MG CAPSULE PO SCH (09:00)
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
[2020-01-15] MEDS ORDERED: NICO21PAT TD (10:08)
[2020-01-15] MEDS ORDERED: VENL75CA47 PO (10:08)
== END 2020-01-15 12:59 | disposition home or self-care (01) | DRG 754 ==
LOC: M ED 18:25 → M ED INP 01-13 00:25 → M PSY 01-13 01:24
PROVIDERS: ADMIT Psychiatry & Neurology Psychiatry; ATTEND Psychiatry & Neurology Addiction Medicine
DX: F32.9 Major depressive disorder, single episode, unspecified (principal); E28.2 Polycystic ovarian syndrome; E78.5 Hyperlipidemia, unspecified; I10 Essential (primary) hypertension; E66.01 Morbid (severe) obesity due to excess calories; F17.200 Nicotine dependence, unspecified, uncomplicated; R45.851 Suicidal ideations; F60.3 Borderline personality disorder; Z79.84 Long term (current) use of oral hypoglycemic drugs; Z79.899 Other long term (current) drug therapy; Z88.2 Allergy status to sulfonamides; Z88.8 Allergy status to other drugs, medicaments and biological substances; Z91.040 Latex allergy status; Z91.018 Allergy to other foods; Z91.048 Other nonmedicinal substance allergy status; T74.21XA Adult sexual abuse, confirmed, initial encounter; Y07.03 Male partner, perpetrator of maltreatment and neglect

== ENCOUNTER 2020-01-15 18:52 | Emergency (ER) | payer MEDICAID ==
[~2020-01-15] VITALS: Ht 167.6 cm; Wt 94.1 kg
[~2020-01-15 18:52] MED LIST changes: +CETI10CH PO; +MED REC COMMENT; +MIRTAZAPINE; +NICO21PAT TD; +ONDA-83 PO; +SUCR1TA PO; +VENL75CA47 PO
[2020-01-15 21:31] VITALS: BP 140/87
--- NOTE | 2020-01-16 01:34 | REP ---
Clinical: Sprain. Technique: AP, lateral, bilateral oblique views of the left ankle. Findings: Moderate swelling. No acute fracture or dislocation. No subcutaneous emphysema or foreign body. Impression: Moderate swelling. No fracture. Electronically Signed by Tj More MD 01/16/2020 01:26 A
== END 2020-01-15 21:33 | disposition home or self-care (01) ==
LOC: M ED 18:52
DX: S93.402A Sprain of unspecified ligament of left ankle, initial encounter (principal); X50.9XXA Other and unspecified overexertion or strenuous movements or postures, initial encounter; Y92.512 Supermarket, store or market as the place of occurrence of the external cause; E11.9 Type 2 diabetes mellitus without complications; I10 Essential (primary) hypertension; J45.909 Unspecified asthma, uncomplicated; E28.2 Polycystic ovarian syndrome; F31.9 Bipolar disorder, unspecified; F43.10 Post-traumatic stress disorder, unspecified; F60.3 Borderline personality disorder; K21.9 Gastro-esophageal reflux disease without esophagitis; Z79.899 Other long term (current) drug therapy; Z88.0 Allergy status to penicillin; Z88.1 Allergy status to other antibiotic agents; Z88.2 Allergy status to sulfonamides; Z88.8 Allergy status to other drugs, medicaments and biological substances; Z91.018 Allergy to other foods; Z91.040 Latex allergy status; Z91.048 Other nonmedicinal substance allergy status; F17.210 Nicotine dependence, cigarettes, uncomplicated

== ENCOUNTER 2020-01-17 00:38 | Emergency (ER) | payer MEDICAID ==
[2020-01-17] MEDS ORDERED: METOCLOPRAMIDE INJ 10MG/2ML VIAL (J2765 PER 1) IV ONE (01:15)
[2020-01-17] MEDS ORDERED: KETOROLAC 30 MG/ML 1ML VIAL IV ONE (01:15)
[2020-01-17] MEDS ORDERED: NS 1,000 ML IV ONE (01:15)
[2020-01-17] MEDS ORDERED: ACETAMINOPHEN 500 MG TAB PO ONE (01:15)
[2020-01-17 01:51] LABS: HEMATOCRIT 36.6 % (36.0-47.0); HEMOGLOBIN 11.6 g/dl (12.0-15.5); MEAN CORPUSCULAR HEMOGLOBIN 27.8 pg (27.0-33.0); MEAN CORPUSCULAR HGB CONC 31.7 g/dl (32.0-36.5); MEAN CORPUSCULAR VOLUME 87.8 fl (80.0-96.0); PLATELET COUNT, AUTOMATED 182 10^3/uL (150-450); RED BLOOD COUNT 4.17 10^6/uL (4.00-5.40); WHITE BLOOD COUNT 7.1 10^3/uL (4.0-10.0)
[2020-01-17 02:17] LABS: ALBUMIN 3.4 GM/DL (3.2-5.2); ALT/SGPT 30 U/L (12-78); BILIRUBIN,DIRECT < 0.1 MG/DL (0.0-0.2); TOTAL PROTEIN 6.5 GM/DL (6.4-8.2)
[2020-01-17 02:19] LABS: HCG, SERUM QUALITATIVE NEGATIVE (NEGATIVE)
[2020-01-17 03:08] LABS: BILIRUBIN,TOTAL < 0.1 MG/DL (0.2-1.0)
[2020-01-17 04:50] VITALS: BP 118/68
== END 2020-01-17 04:53 | disposition home or self-care (01) ==
LOC: M ED 00:38
DX: G43.909 Migraine, unspecified, not intractable, without status migrainosus (principal); E11.9 Type 2 diabetes mellitus without complications; I10 Essential (primary) hypertension; E78.5 Hyperlipidemia, unspecified; E28.2 Polycystic ovarian syndrome; F33.9 Major depressive disorder, recurrent, unspecified; F41.9 Anxiety disorder, unspecified; Z79.899 Other long term (current) drug therapy; Z79.84 Long term (current) use of oral hypoglycemic drugs; Z88.0 Allergy status to penicillin; Z88.1 Allergy status to other antibiotic agents; Z88.2 Allergy status to sulfonamides; Z88.8 Allergy status to other drugs, medicaments and biological substances; Z91.018 Allergy to other foods; Z91.040 Latex allergy status; F17.210 Nicotine dependence, cigarettes, uncomplicated
CPT/HCPCS: 80047; 80076; 84702; 84703; 85027; 96361; 96374; 96375; 99284; J1885; J2765

== ENCOUNTER 2020-01-21 06:40 | Emergency (ER) | payer MEDICAID, OTHER ==
[~2020-01-21] VITALS: Ht 167.6 cm; Wt 150.3 kg
[~2020-01-21 06:40] MED LIST changes: -ALL10TAB29 PO; +CETI-24 PO; +ESCI10TA16 PO; -ESCI10TA2 PO; +GABA-282 PO; -GABA-843 PO; +IBUP1TAB5 PO; -IBUP40TA PO; +METH-1165 PO; -METH750T2 PO; +MIRT-62 PO; -REME15TA PO
[2020-01-21 06:41] VITALS: BP 133/89
[2020-01-21] MEDS ORDERED: BOOSTRIX/ADACEL VACCINE (DIPHTH/PERTUSS/ACELL/TETANUS) 0.5ML SYR IM ONE (07:15)
[2020-01-21] MEDS ORDERED: CLEO150C PO (07:29)
[2020-01-21] MEDS ORDERED: ONDA4TAB6 PO (20:59)
[2020-01-22] MEDS ORDERED: CLIN150C15 PO (17:41)
[2020-01-22] MEDS ORDERED: VENL75CA47 PO (17:41)
[2020-01-22] MEDS ORDERED: NICO1DIS12 TD (17:41)
[2020-01-22] MEDS ORDERED: CETI10TA4 PO (17:41)
[2020-02-08] MEDS ORDERED: D31000TA2 PO (11:50)
[2020-02-19] MEDS ORDERED: QUET50TA3 PO (16:21)
[2020-04-02] MEDS ORDERED: QUET50TA3 PO (03:03)
[2020-04-10] MEDS ORDERED: PHEN1TAB73 PO (14:53)
[2020-04-14] MEDS ORDERED: CLIN150C15 PO (22:17)
== END 2020-01-21 07:50 | disposition home or self-care (01) ==
LOC: M ED 06:40
DX: L03.116 Cellulitis of left lower limb (principal); Z88.0 Allergy status to penicillin; Z88.2 Allergy status to sulfonamides; Z91.040 Latex allergy status; Z91.018 Allergy to other foods; Z88.8 Allergy status to other drugs, medicaments and biological substances; F43.10 Post-traumatic stress disorder, unspecified; F31.9 Bipolar disorder, unspecified; F25.9 Schizoaffective disorder, unspecified; F60.3 Borderline personality disorder; F17.218 Nicotine dependence, cigarettes, with other nicotine-induced disorders

== ENCOUNTER 2020-01-21 19:51 | Emergency (ER) | payer OTHER ==
[~2020-01-21] VITALS: Ht 167.6 cm; Wt 149.8 kg
[~2020-01-21 19:51] MED LIST changes: +ALL10TAB29 PO; -CETI-24 PO; +CLEO150C PO; -ESCI10TA16 PO; +ESCI10TA2 PO; -GABA-282 PO; +GABA-843 PO; -IBUP1TAB5 PO; +IBUP40TA PO; -METH-1165 PO; +METH750T2 PO; -MIRT-62 PO; +REME15TA PO
[2020-01-21 19:52] VITALS: BP 131/79
[2020-01-21] MEDS ORDERED: ONDANSETRON 4 MG ORAL DISINTEGRATING TAB PO ONE (20:30)
[2020-01-21] MEDS ORDERED: ONDA4TAB6 PO (20:59)
[2020-01-21 22:11] LABS: CHLAMYDIA DNA AMPLIFICATION NEGATIVE (NEGATIVE); GC DNA AMPLIFICATION NEGATIVE (NEGATIVE)
[2020-01-22] MEDS ORDERED: VENL75CA47 PO (17:41)
[2020-01-22] MEDS ORDERED: CETI10TA4 PO (17:41)
[2020-01-22] MEDS ORDERED: CLIN150C14 PO (17:41)
[2020-01-22] MEDS ORDERED: NICO21DI31 TD (17:41)
== END 2020-01-21 21:18 | disposition home or self-care (01) ==
LOC: M ED 19:51
DX: L55.0 Sunburn of first degree (principal); F17.218 Nicotine dependence, cigarettes, with other nicotine-induced disorders; Z88.0 Allergy status to penicillin; Z88.2 Allergy status to sulfonamides; Z91.040 Latex allergy status; Z91.018 Allergy to other foods; Z88.8 Allergy status to other drugs, medicaments and biological substances; F43.10 Post-traumatic stress disorder, unspecified; F25.9 Schizoaffective disorder, unspecified; F60.3 Borderline personality disorder
CPT/HCPCS: 80047; 81001; 84702; 87661; 99283; Q0162

== ENCOUNTER 2020-01-22 01:11 | Inpatient (IN) | payer OTHER ==
[~2020-01-22] VITALS: Ht 167.6 cm; Wt 95.0 kg
[2020-01-22] MEDS ORDERED: CHARCOAL ACTIVATED LIQUID 25 GM/120 ML BTL PO ONE ×2 (01:15→01:30)
[2020-01-22] MEDS ORDERED: CHARCOAL ACTIVATED LIQUID 25 GM/120 ML BTL As Ordered ONE (01:17)
[2020-01-22 01:30] LABS: VENOUS BASE EXCESS -0.1 (-2.0-2.0); VENOUS O2 SATURATION 84.2 % (60.0-80.0); VENOUS PARTIAL PRESSURE CO2 47.9 mmHg (38.0-50.0); VENOUS PARTIAL PRESSURE O2 50.3 mmHg (30.0-50.0); VENOUS PH 7.352 UNITS (7.330-7.430); VENOUS STANDARD HCO3 24.1 MEQ/L; VENOUS TOTAL CO2 27.4 MEQ/L (24.0-28.0)
[2020-01-22] MEDS ORDERED: ONDANSETRON 4MG/2ML VIAL IV ONE (01:30)
[2020-01-22] MEDS ORDERED: ONDANSETRON 4MG/2ML VIAL As Ordered ONE (01:30)
[2020-01-22 01:52] LABS: BASO % 0.3 % (0.0-1.0); EOS # 0.4 10^3/uL (0.0-0.5); EOS % 4.5 % (0.0-3.0); HEMATOCRIT 37.5 % (36.0-47.0); HEMOGLOBIN 11.6 g/dl (12.0-15.5); LYMPH # 2.2 10^3/uL (1.5-5.0); LYMPH % 25.3 % (24.0-44.0); MEAN CORPUSCULAR HEMOGLOBIN 27.8 pg (27.0-33.0); MEAN CORPUSCULAR HGB CONC 30.9 g/dl (32.0-36.5); MEAN CORPUSCULAR VOLUME 89.7 fl (80.0-96.0); MONO # 0.8 10^3/uL (0.0-0.8); MONO % 9.5 % (0.0-5.0); NEUTROPHILS # 5.2 10^3/uL (1.5-8.5); NEUTROPHILS % 59.8 % (36.0-66.0); PLATELET COUNT, AUTOMATED 216 10^3/uL (150-450); RED BLOOD COUNT 4.18 10^6/uL (4.00-5.40); WHITE BLOOD COUNT 8.6 10^3/uL (4.0-10.0)
[2020-01-22 02:05] LABS: AMPHETAMINES LEVEL URINE NEGATIVE (NEGATIVE); BARBITURATES URINE NEGATIVE (NEGATIVE); BENZODIAZEPINES URINE NEGATIVE (NEGATIVE); CANNABINOIDS URINE NEGATIVE (NEGATIVE); COCAINE METABOLITE URINE NEGATIVE (NEGATIVE); METHADONE URINE NEGATIVE (NEGATIVE); OPIATES URINE NEGATIVE (NEGATIVE); PHENCYCLIDINE URINE NEGATIVE (NEGATIVE)
[2020-01-22 02:22] LABS: ACETAMINOPHEN LEVEL < 2.0 UG/ML (10.0-30.0); ALBUMIN 3.7 GM/DL (3.2-5.2); ALT/SGPT 36 U/L (12-78); BILIRUBIN,DIRECT < 0.1 MG/DL (0.0-0.2); BILIRUBIN,TOTAL 0.2 MG/DL (0.2-1.0); BLOOD UREA NITROGEN 12 MG/DL (7-18); CALCIUM LEVEL 8.5 MG/DL (8.5-10.1); CARBON DIOXIDE LEVEL 27 MEQ/L (21-32); CHLORIDE LEVEL 108 MEQ/L (98-107); CPK CREATINE PHOSPHOKINASE 199 U/L (26-192); CREATININE FOR GFR 0.71 MG/DL (0.55-1.30); ETHYL ALCOHOL (ETHANOL) < 0.003 % (0.000-0.010); GLOMERULAR FILTRATION RATE > 60.0 (>60); GLUCOSE, FASTING 91 MG/DL (70-100); POTASSIUM SERUM 3.9 MEQ/L (3.5-5.1); SALICYLATE LEVEL < 1.7 MG/DL (5.0-30.0); SODIUM LEVEL 140 MEQ/L (136-145); TOTAL PROTEIN 7.1 GM/DL (6.4-8.2)
[2020-01-22 02:23] LABS: HCG, SERUM QUALITATIVE NEGATIVE (NEGATIVE)
[2020-01-22 08:53] LABS: BLOOD UREA NITROGEN 11 MG/DL (7-18); CALCIUM LEVEL 8.5 MG/DL (8.5-10.1); CARBON DIOXIDE LEVEL 30 MEQ/L (21-32); CHLORIDE LEVEL 109 MEQ/L (98-107); CREATININE FOR GFR 0.81 MG/DL (0.55-1.30); GLOMERULAR FILTRATION RATE > 60.0 (>60); GLUCOSE, FASTING 91 MG/DL (70-100); POTASSIUM SERUM 4.3 MEQ/L (3.5-5.1); SODIUM LEVEL 143 MEQ/L (136-145)
--- NOTE | 2020-01-22 15:40 | ED PDOC ---
Provider Note patient admitted PHYLLIS RIZZO DO Jan 22, 2020 15:40
[2020-01-22] MEDS ORDERED: VENL75CA47 PO (17:41)
[2020-01-22] MEDS ORDERED: CETI10TA4 PO (17:41)
[2020-01-22] MEDS ORDERED: NICO21DI31 TD (17:41)
[2020-01-22] MEDS ORDERED: CLIN150C14 PO (17:41)
[2020-01-22] MEDS ORDERED: MOM 30ML SUSPENSION UDC PO PRN (18:30)
[2020-01-22] MEDS ORDERED: NICOTINE 21MG/24HR 1 EA TRANSDERMAL TD PRN (18:30)
[2020-01-22] MEDS ORDERED: MAALOX 30 ML SUSP *UDC PO PRN (18:30)
[2020-01-22] MEDS: metFORMIN (GLUCOPHAGE) 500 MG TAB PO SCH (19:23)
--- NOTE | 2020-01-22 20:12 | ECGEPIP ---
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
[2020-01-22] MEDS: ACETAMINOPHEN TAB 650MG DOSE (2X325MG) PO PRN (20:52)
[2020-01-22] MEDS: SUCRALFATE 1 GM TAB PO SCH (20:52)
[2020-01-22] MEDS: PRAZOSIN 1 MG CAP PO SCH (20:53)
[2020-01-22 22:14] VITALS: BP 123/58
[2020-01-22] MEDS ORDERED: diphenhydrAMINE CREAM 30GM TOP PRN (22:15)
[2020-01-22] MEDS: MIRTAZAPINE 15 MG TAB PO PRN (23:05)
[2020-01-22] MEDS: traZODone 50 MG TAB PO PRN (23:05)
[2020-01-23 06:19] VITALS: BP 102/54
[2020-01-23] MEDS: metFORMIN (GLUCOPHAGE) 500 MG TAB PO SCH ×3 (07:46→17:30)
[2020-01-23] MEDS: SUCRALFATE 1 GM TAB PO SCH ×4 (07:46→20:59)
[2020-01-23] MEDS: haloperidoL 5 MG TAB PO SCH (08:12)
[2020-01-23] MEDS: ACETAMINOPHEN TAB 650MG DOSE (2X325MG) PO PRN (08:12)
[2020-01-23] MEDS: VENLAFAXINE **XR** 75MG CAPSULE PO SCH (08:12)
[2020-01-23] MEDS: BENZTROPINE 2 MG TAB PO SCH (08:12)
[2020-01-23] MEDS ORDERED: CETIRIZINE (ZyrTEC) 10 MG TAB PO ONE (09:00)
--- NOTE | 2020-01-23 09:38 | MHHPEPDOC ---
General Date Of Admission: Jan 22, 2020 Legal Status: 9.39 Chief Complaint "Patient refuses interview. History of Present Illness HISTORY OF THE PRESENT ILLNESS: Patient is a 19 -year-old , female, who presented to [facility] where she reported vague suicidal thoughts. She was briefly met with in the ER. However, she became upset when any questions rest and refuse to answer she is admitted out of abundance of caution, she reported an overdose, but it had no signs or symptoms that she had taken Benadryl collateral information did not support any observed overdose. The patient refused to meet with this provider today. MSe patient refuses exam Past Psychiatric History Previous Psychiatric Diagnosis: borderline personality disorder. Previous Psychiatric Admissions: multiple last several weeks ago. Suicide Attempts: reports multiple, however few confirmed if any. Psychiatric Follow-up: noncompliant with [facility] Psychiatric medications: no changes from previous. Past Medical History Medical Problems obesity Family Medical/Psychiatric HX Medical Problems unclear Addiction History other (negative urinary toxicology) Social History Current Living Situation: living with stepmother. Education: unclear. Employment: unemployed. Social Support: few. Legal: no notable. Marital: single unmarried. Assessment 19-year-old woman who presents after reported lead taking overdose malingering is high in the differential as she presents after audibly losing her housing TLS that she was noncompliant with treatment recommendations. She refuses to meet with me. Perhaps out of a concept that this will delay her discharge Problem List Problems: (1) Borderline personality disorder Status: Chronic Problem Specific Plan: Monitor Clinically Problem Text: chronic behavioral problems, will continue to monitor (2) Malingering Status: Chronic Problem Text: likely secondary gain for presenting (3) PTSD (post-traumatic stress disorder) Status: Chronic Problem Text: continue home meds (4) PCOS (polycystic ovarian syndrome) Status: Chronic Problem Text: continue home meds (5) Hypertension Status: Chronic Problem Text: continue home meds (6) Hyperlipidemia Status: Chronic Problem Text: continue home meds (7) Morbid obesity Status: Chronic Problem Text: outpatient PCP referral Initial Treatment Plan 1. Patient was admitted on a [9.39] status. 2. Complete history was obtained. 3. With patients permission, family will be contacted and database will be expanded. 4. Patients medication regimen will be reviewed and changed accordingly. 5. Patient will be provided with protected environment. 6. Patient will be treated with individual, group, and milieu therapies. 7. Patient will receive supportive psych-education. 8. Discharge planning will commence immediately. 9. Outpatient follow-up treatment will be strongly recommended. 10. The initial treatment plan will focus initially on: ineffective coping Risk for suicide. ESTIMATED LENGTH OF STAY: 2-3 DAYS. TIME SPENT COUNSELING AND COORDINATING INITIAL CARE: 20 minutes. Vital Signs Vital Signs Date Time Temp Pulse Resp B/P (MAP) Pulse Ox O2 Delivery O2 Flow Rate FiO2 01/23/20 06:19 98.9 80 18 102/54 (70) 01/22/20 22:14 97 Room Air Medications Scheduled Benztropine Mesylate (Benztropine Mesylate) 2 Mg Tablet, 2 MG PO DAILY for , (Reported) Cetirizine HCl (Cetirizine HCl) 10 Mg Tablet, 10 MG PO DAILY, (Reported) Clindamycin Hcl (Clindamycin HCl) 150 Mg Capsule, 450 MG PO TID, (Reported) FILLED 01/21/20 FOR 7 DAYS - PATIENT HAS NOT STARTED YET Diphenhydramine HCl (Banophen) 50 Mg Capsule, 50 MG PO DAILY for , (Reported) Haloperidol (Haloperidol) 5 Mg Tablet, 5 MG PO DAILY for , (Reported) Metformin HCl (Metformin HCl) 500 Mg Tablet, 500 MG PO TID for , (Reported) Prazosin Hcl (Prazosin HCl) 1 Mg Capsule, 3 MG PO QHS for , (Reported) Sucralfate (Sucralfate) 1 Gm Tablet, 1 GRAM PO ACHS for , (Reported) Venlafaxine HCl (Venlafaxine HCl ER) 75 Mg Cap.er.24h, 225 MG PO DAILY, (Reported) Scheduled PRN Hydroxyzine Pamoate (Hydroxyzine Pamoate) 50 Mg Capsule, 50 MG PO Q6H PRN for ANXIETY, (Reported) Ibuprofen (Ibuprofen) 600 Mg Tablet, 600 MG PO TID PRN for PAIN, (Reported) Mirtazapine (Remeron) 15 Mg Tablet, 15 MG PO QHS PRN for INSOMNIA, (Reported) Nicotine (Nicotine Patch) 21 Mg Patch.td24, 21 MG TD DAILY PRN for SMOKING CESSATION, (Reported) Ondansetron HCl (Ondansetron HCl) 4 Mg Tablet, 4 MG PO Q6H PRN for NAUSEA, (Reported) Allergies Coded Allergies: RUBBER (Verified Allergy, Intermediate, 12/31/19) Mushroom (Verified Allergy, Unknown, 12/31/19) Penicillins (Verified Allergy, Unknown, 12/31/19) Sulfa (Sulfonamide Antibiotics) (Verified Allergy, Unknown, 12/31/19) TURKEY (Verified Allergy, Unknown, 12/31/19) emtricitabine (Verified Allergy, Unknown, 12/31/19) latex (Verified Allergy, Unknown, 12/31/19) raltegravir (Verified Allergy, Unknown, 12/31/19) sulfamethoxazole (Verified Allergy, Unknown, 12/31/19) tomato (Verified Allergy, Unknown, 12/31/19) trimethoprim (Verified Allergy, Unknown, 12/31/19) PHYLLIS RIZZO DO Jan 23, 2020 09:38
--- NOTE | 2020-01-23 14:42 | HPEPDOC ---
General Date of Admission Jan 22, 2020 at 18:21 Date of Service: Jan 23, 2020 Chief Complaint The patient is a 19-year-old female admitted with a reason for visit of Unspecified Depressive Disorder. Source: Patient History of Present Illness 19 year old female with obesity, PCOS, hypertension admitted to [facility] for depression. I am seeing the patient for medical history and physical. Today she complains of sun burn in the upper back and upper chest wall which happened 2 weeks ago. She says it still martinez and stings off and on specially when clothes rub against the areas. No fever or chills. Home Medications Scheduled Benztropine Mesylate (Benztropine Mesylate) 2 Mg Tablet, 2 MG PO DAILY for , (Reported) Cetirizine HCl (Cetirizine HCl) 10 Mg Tablet, 10 MG PO DAILY, (Reported) Clindamycin Hcl (Clindamycin HCl) 150 Mg Capsule, 450 MG PO TID, (Reported) FILLED 01/21/20 FOR 7 DAYS - PATIENT HAS NOT STARTED YET Diphenhydramine HCl (Banophen) 50 Mg Capsule, 50 MG PO DAILY for , (Reported) Haloperidol (Haloperidol) 5 Mg Tablet, 5 MG PO DAILY for , (Reported) Metformin HCl (Metformin HCl) 500 Mg Tablet, 500 MG PO TID for , (Reported) Prazosin Hcl (Prazosin HCl) 1 Mg Capsule, 3 MG PO QHS for , (Reported) Sucralfate (Sucralfate) 1 Gm Tablet, 1 GRAM PO ACHS for , (Reported) Venlafaxine HCl (Venlafaxine HCl ER) 75 Mg Cap.er.24h, 225 MG PO DAILY, (Reported) Scheduled PRN Hydroxyzine Pamoate (Hydroxyzine Pamoate) 50 Mg Capsule, 50 MG PO Q6H PRN for ANXIETY, (Reported) Ibuprofen (Ibuprofen) 600 Mg Tablet, 600 MG PO TID PRN for PAIN, (Reported) Mirtazapine (Remeron) 15 Mg Tablet, 15 MG PO QHS PRN for INSOMNIA, (Reported) Nicotine (Nicotine Patch) 21 Mg Patch.td24, 21 MG TD DAILY PRN for SMOKING CESSATION, (Reported) Ondansetron HCl (Ondansetron HCl) 4 Mg Tablet, 4 MG PO Q6H PRN for NAUSEA, (Reported) Allergies Coded Allergies: RUBBER (Verified Allergy, Intermediate, 12/31/19) Mushroom (Verified Allergy, Unknown, 12/31/19) Penicillins (Verified Allergy, Unknown, 12/31/19) Sulfa (Sulfonamide Antibiotics) (Verified Allergy, Unknown, 12/31/19) TURKEY (Verified Allergy, Unknown, 12/31/19) emtricitabine (Verified Allergy, Unknown, 12/31/19) latex (Verified Allergy, Unknown, 12/31/19) raltegravir (Verified Allergy, Unknown, 12/31/19) sulfamethoxazole (Verified Allergy, Unknown, 12/31/19) tomato (Verified Allergy, Unknown, 12/31/19) trimethoprim (Verified Allergy, Unknown, 12/31/19) Past Medical History Medical History Morbid Obesity Depression PTSD, Asthma, Borderline Personality disorder, PCOS Surgical History Adenoidectomy Tosillectomy Appendectomy L. Oopherectomy Family History Significant Family History: Diabetes, Hypertension Social History * Smoker: current smoker Alcohol: Denies Drugs: marijuana A-FIB/CHADSVASC A-FIB History Current/History of A-Fib/PAF?: No Review of Systems Constitutional: Denies: Chills, Fever, Night Sweats Eyes: Denies: Pain, Vision change ENT: Denies: Head Aches, Ear Pain, Dysphagia Skin: Reports: Rash (red on the upper chest back and front) Pulmonary: Denies: Dyspnea, Cough Cardiovascular: Denies: Chest Pain, Palpitations, Orthopnea, Paroxysmal Noc. Dyspnea, Lt Headedness Gastrointestinal: Denies: Nausea, Vomiting, Abdominal Pain, Diarrhea Genitourinary: Denies: Dysuria, Frequency, Incontinence, Retention Hematologic: Denies: Bruising, Bleeding Excessively Musculoskeletal: Denies: Neck Pain, Back Pain, Joint Pain, Muscle Pain, Spasms Physical Examination General Exam: Positive: Alert, No Acute Distress Eye Exam: Positive: PERRLA, Conjunctiva & lids normal, EOMI; Negative: Sclera icteric ENT Exam: Positive: Atraumatic, Mucous membr. moist/pink, Pharynx Normal Neck Exam: Positive: Supple; Negative: JVD, thyromegaly Chest Exam: Positive: Clear to auscultation, Normal air movement Heart Exam: Positive: Rate Normal, Regular Rhythm, Normal S1, Normal S2; Negative: Murmurs, Rubs Abdomen Exam: Positive: Normal bowel sounds, Soft; Negative: Tenderness, Hepatospenomegaly Extremity Exam: Positive: Normal pulses; Negative: Clubbing, Cyanosis, Edema Skin Exam: Positive: Other skin issue (first degree sunburn on the upper back and upper part of the frondt of the chest and upper part of the breats. ) Neuro Exam: Positive: Normal Gait, Normal Speech, Strength at 5/5 X4 ext, Normal Tone Vital Signs Vital Signs Date Time Temp Pulse Resp B/P (MAP) Pulse Ox O2 Delivery O2 Flow Rate FiO2 01/23/20 06:19 98.9 80 18 102/54 (70) 01/22/20 22:14 97 Room Air Assessment/Plan 19 year old female with obesity, PCOS, hypertension admitted to [facility] for depression. I am seeing the patient for medical history and physical. First degree sunburn improving PCOS (polycystic ovarian syndrome) Continue metformin Hypertension Blood pressure under control continue to monitor Hyperlipidemia Atorvastatin 20 mg Morbid obesity Complicating care BMI 50 Patient will benefit from bariatric surgery Depression with suicidal ideation We'll defer treatment psych team Allergies on cetrizine. Plan / VTE VTE Prophylaxis Ordered?: No (freely ambulatory) ELLIOTT SMITH MD Jan 23, 2020 08:59
[2020-01-23 16:08] VITALS: BP 121/62
[2020-01-23 20:59] VITALS: BP 121/62
[2020-01-23] MEDS: MIRTAZAPINE 15 MG TAB PO PRN (20:59)
[2020-01-23] MEDS: traZODone 50 MG TAB PO PRN (20:59)
[2020-01-23] MEDS: PRAZOSIN 1 MG CAP PO SCH (20:59)
[2020-01-24 06:28] VITALS: BP 139/66
[2020-01-24] MEDS: SUCRALFATE 1 GM TAB PO SCH ×2 (08:27→12:17)
[2020-01-24] MEDS: VENLAFAXINE **XR** 75MG CAPSULE PO SCH (08:27)
[2020-01-24] MEDS: BENZTROPINE 2 MG TAB PO SCH (08:27)
[2020-01-24] MEDS: haloperidoL 5 MG TAB PO SCH (08:27)
[2020-01-24] MEDS: metFORMIN (GLUCOPHAGE) 500 MG TAB PO SCH ×2 (08:27→12:17)
--- NOTE | 2020-01-24 13:45 | MHIPNPDOC ---
[facility] Progress Note Progress Note DATE OF SERVICE: 01/24/20 HISTORY: As per ED report: "Patient is a 19 -year-old , female, who presented to [facility] where she reported vague suicidal thoughts. She was briefly met with in the ER. However, she became upset when any questions rest and refuse to answer she is admitted out of abundance of caution, she reported an overdose, but it had no signs or symptoms that she had taken Benadryl collateral information did not support any observed overdose. The patient refused to meet with this provider today." VITAL SIGNS: See below. NEW TEST RESULTS: See below CURRENT MEDICATIONS: See below. MENTAL STATUS EXAMINATION: Patient is a-year old female, who is alert, dressed in hospital clothes, disheveled Speech: Is normal in r/t/v. Language skills are intact Thought processes including: linear and coherent. Thought content: Denies SI/denies HI, denies paranoid delusions, denies grandiose delusions, denies bizarre delusions Description of abnormal or psychotic thoughts: Denies TAV hallucinations, denies thought delusions Judgment: Improving Insight: Improving Orientation: x 3 Recent and remote memory: Intact Attention span and concentration: Good Language: Adequate Fund of knowledge: Average Mood: Euthymic. Affect: Congruent DIAGNOSES: 1. PTSD 2. Borderline Personality disorder. 3. Malingering ASSESSMENT: Patient seems to be safe to be discharged home MANAGEMENT PLAN: Discharge home today TIME SPENT: 15 minutes. Vital Signs Vital Signs Date Time Temp Pulse Resp B/P (MAP) Pulse Ox O2 Delivery O2 Flow Rate FiO2 01/24/20 06:28 98.4 66 16 139/66 (90) 100 Room Air Current Medications Current Medications Medications (Trade) Dose Ordered Sig/Susy Route PRN Reason Start Time Stop Time Status Last Admin Dose Admin Acetaminophen (Tylenol Tab) 650 mg Q6HP PRN PO HEADACHE or DISCOMFORT 01/22/20 18:30 01/23/20 08:12 Al Hydrox/Mg Hydrox/Simethicone (Mylanta) 30 ml Q4HP PRN PO HEARTBURN/INDIGESTION 01/22/20 18:30 Benztropine Mesylate (Cogentin) 2 mg DAILY PO 01/23/20 09:00 01/24/20 08:27 Diphenhydramine HCl (Benadryl Cream) Apply to the sunb... Q4HP PRN TOP ITCHING 01/22/20 22:15 01/22/20 23:05 Haloperidol (Haldol) 5 mg DAILY PO 01/23/20 09:00 01/24/20 08:27 Home Med (Med Rec Complete!) ASDIRECTED XX 01/22/20 17:45 01/22/20 17:42 DC Magnesium Hydroxide (Milk Of Magnesia) 30 ml DAILYPRN PRN PO CONSTIPATION 01/22/20 18:30 Metformin HCl (Glucophage) 500 mg TID@0800,1200,1800 PO 01/22/20 18:00 01/24/20 12:17 Mirtazapine (Remeron) 15 mg QHSP PRN PO INSOMNIA 01/22/20 18:30 01/23/20 20:59 Nicotine (Nicoderm Cq 21mg) 1 patch DAILYPRN PRN TD SMOKING CESSATION 01/22/20 18:30 Prazosin HCl (Minipress) 3 mg QHS PO 01/22/20 21:00 01/23/20 20:59 Sucralfate (Carafate) 1 gm ACHS PO 01/22/20 21:00 01/24/20 12:17 Trazodone HCl (Desyrel) 50 mg QHSP PRN PO INSOMNIA 01/22/20 18:30 01/23/20 20:59 Venlafaxine HCl (Effexor Xr) 225 mg DAILY PO 01/23/20 09:00 01/24/20 08:27 Allergies Coded Allergies: RUBBER (Verified Allergy, Intermediate, 12/31/19) Mushroom (Verified Allergy, Unknown, 12/31/19) Penicillins (Verified Allergy, Unknown, 12/31/19) Sulfa (Sulfonamide Antibiotics) (Verified Allergy, Unknown, 12/31/19) TURKEY (Verified Allergy, Unknown, 12/31/19) emtricitabine (Verified Allergy, Unknown, 12/31/19) latex (Verified Allergy, Unknown, 12/31/19) raltegravir (Verified Allergy, Unknown, 12/31/19) sulfamethoxazole (Verified Allergy, Unknown, 12/31/19) tomato (Verified Allergy, Unknown, 12/31/19) trimethoprim (Verified Allergy, Unknown, 12/31/19) LAILA WHITHEEAD MD Jan 24, 2020 13:42
[2020-01-24] MEDS ORDERED: DIPHCR TOP (13:51)
[2020-01-24] MEDS ORDERED: TRAZ-252 PO (13:51)
[2020-01-24] MEDS ORDERED: VENL75CA47 PO (13:51)
--- NOTE | 2020-01-24 17:46 | MHDSPDOC ---
[facility] Discharge Summary Discharge Summary DATE OF ADMISSION: Jan 22, 2020 at 18:21 DATE OF DISCHARGE: Jan 24, 2020 at 15:27 DISCHARGE DIAGNOSES: 1. PTSD 2. Borderline Personality disorder. 3. Malingering REASON FOR ADMISSION: As per Dr. Silver notes: " Patient is a 19 -year-old , female, who presented to [facility] where she reported vague suicidal thoughts. She was briefly met with in the ER. However, she became upset when any questions rest and refuse to answer she is admitted out of abundance of caution, she reported an overdose, but it had no signs or symptoms that she had taken Benadryl collateral information did not support any observed overdose. The patient refused to meet with this provider today." CONSULTANTS INVOLVED: None TREATMENT AND PROGRESS ON THE UNIT : patient had a very similar presentation to previous hospitalizations where she stays for 2-3 days and then she says she is ready to leave, saying she is not longer depressed or suicidal. This is exactly what happened today. She denied suicidal ideation, denied homicidal ideation, denied thought delusions and denied TAV hallucinations. She had a good response to medications and never presented with medication side effects. HOSPITAL COURSE: As above DISCHARGE ASSESSMENT: The patient was not suicidal, not homicidal, not psychotic. She was not in danger to self or others. She didn't exhibit self harm, she never threatened to hurt others or hurt herself during her hospitalization period or during her discharge. She was future orientated and happy at the time of her discharge MENTAL STATUS EXAMINATION ON DISCHARGE: Patient is a-year old female, who is alert, dressed in hospital clothes, disheveled Speech: Is normal in r/t/v. Language skills are intact Thought processes including: linear and coherent. Thought content: Denies SI/denies HI, denies paranoid delusions, denies grandiose delusions, denies bizarre delusions Description of abnormal or psychotic thoughts: Denies TAV hallucinations, denies thought delusions Judgment: Improving Insight: Improving Orientation: x 3 Recent and remote memory: Intact Attention span and concentration: Good Language: Adequate Fund of knowledge: Average Mood: Euthymic. Affect: Congruent MEDICATIONS ON DISCHARGE: Scheduled Benztropine Mesylate (Benztropine Mesylate) 2 Mg Tablet, 2 MG PO DAILY for , (Reported) Cetirizine HCl (Cetirizine HCl) 10 Mg Tablet, 10 MG PO DAILY, (Reported) Clindamycin Hcl (Clindamycin HCl) 150 Mg Capsule, 450 MG PO TID, (Reported) FILLED 01/21/20 FOR 7 DAYS - PATIENT HAS NOT STARTED YET Diphenhydramine HCl (Banophen) 50 Mg Capsule, 50 MG PO DAILY for , (Reported) Haloperidol (Haloperidol) 5 Mg Tablet, 5 MG PO DAILY for , (Reported) Metformin HCl (Metformin HCl) 500 Mg Tablet, 500 MG PO TID for , (Reported) Prazosin Hcl (Prazosin HCl) 1 Mg Capsule, 3 MG PO QHS for , (Reported) Sucralfate (Sucralfate) 1 Gm Tablet, 1 GRAM PO ACHS for , (Reported) Venlafaxine HCl (Venlafaxine HCl ER) 75 Mg Cap.er.24h, 225 MG PO DAILY for mood, #21 Scheduled PRN Diphenhydramine HCl (Itch Relief Cream) 28 Gm Cream..g., 0 DOSE TOP Q4HP PRN for ITCHING, #1 Hydroxyzine Pamoate (Hydroxyzine Pamoate) 50 Mg Capsule, 50 MG PO Q6H PRN for ANXIETY, (Reported) Ibuprofen (Ibuprofen) 600 Mg Tablet, 600 MG PO TID PRN for PAIN, (Reported) Mirtazapine (Remeron) 15 Mg Tablet, 15 MG PO QHS PRN for INSOMNIA, (Reported) Nicotine (Nicotine Patch) 21 Mg Patch.td24, 21 MG TD DAILY PRN for SMOKING CESSATION, (Reported) Ondansetron HCl (Ondansetron HCl) 4 Mg Tablet, 4 MG PO Q6H PRN for NAUSEA, (Reported) Trazodone HCl (Trazodone HCl) 50 Mg Tablet, 50 MG PO QHSP PRN for INSOMNIA, #7 PLAN/FOLLOWUP ARRANGEMENTS: * Medical * Medical Follow Up [facility] * Established With This Provider Yes * Therapist DR. Villanueva * Date Feb 05, 2020 * Time 11:20 * Address of Clinic or Practice [address] [place] [address]. * Follow Up Care Education Label * Mental Health Appt 1 * Medical Follow Up [facility] * Mental Health Community [facility] * Established With This Provider Yes * Therapist Angella * Date Jan 28, 2020 * Time 15:00 * Address of Clinic or Practice [address] [place] [address] * Follow Up Care Education Label * Mental Health Appt 2 * Medical Follow Up [facility] * Mental Health [facility] * Established With This Provider Yes * Therapist Saira * Date Feb 05, 2020 * Time 13:00 * Address of Clinic or Practice [address] [place] [address] * The amount of time spent in the coordination of care for this patient was approximately 30 minutes. Vital Signs/I&Os Vital Signs Date Time Temp Pulse Resp B/P (MAP) Pulse Ox O2 Delivery O2 Flow Rate FiO2 01/24/20 06:28 98.4 66 16 139/66 (90) 100 Room Air Medications Scheduled Benztropine Mesylate (Benztropine Mesylate) 2 Mg Tablet, 2 MG PO DAILY for , (Reported) Cetirizine HCl (Cetirizine HCl) 10 Mg Tablet, 10 MG PO DAILY, (Reported) Clindamycin Hcl (Clindamycin HCl) 150 Mg Capsule, 450 MG PO TID, (Reported) FILLED 01/21/20 FOR 7 DAYS - PATIENT HAS NOT STARTED YET Diphenhydramine HCl (Banophen) 50 Mg Capsule, 50 MG PO DAILY for , (Reported) Haloperidol (Haloperidol) 5 Mg Tablet, 5 MG PO DAILY for , (Reported) Metformin HCl (Metformin HCl) 500 Mg Tablet, 500 MG PO TID for , (Reported) Prazosin Hcl (Prazosin HCl) 1 Mg Capsule, 3 MG PO QHS for , (Reported) Sucralfate (Sucralfate) 1 Gm Tablet, 1 GRAM PO ACHS for , (Reported) Venlafaxine HCl (Venlafaxine HCl ER) 75 Mg Cap.er.24h, 225 MG PO DAILY for mood, #21 Scheduled PRN Diphenhydramine HCl (Itch Relief Cream) 28 Gm Cream..g., 0 DOSE TOP Q4HP PRN for ITCHING, #1 Hydroxyzine Pamoate (Hydroxyzine Pamoate) 50 Mg Capsule, 50 MG PO Q6H PRN for ANXIETY, (Reported) Ibuprofen (Ibuprofen) 600 Mg Tablet, 600 MG PO TID PRN for PAIN, (Reported) Mirtazapine (Remeron) 15 Mg Tablet, 15 MG PO QHS PRN for INSOMNIA, (Reported) Nicotine (Nicotine Patch) 21 Mg Patch.td24, 21 MG TD DAILY PRN for SMOKING CESSATION, (Reported) Ondansetron HCl (Ondansetron HCl) 4 Mg Tablet, 4 MG PO Q6H PRN for NAUSEA, (Reported) Trazodone HCl (Trazodone HCl) 50 Mg Tablet, 50 MG PO QHSP PRN for INSOMNIA, #7 Allergies Coded Allergies: RUBBER (Verified Allergy, Intermediate, 12/31/19) Mushroom (Verified Allergy, Unknown, 12/31/19) Penicillins (Verified Allergy, Unknown, 12/31/19) Sulfa (Sulfonamide Antibiotics) (Verified Allergy, Unknown, 12/31/19) TURKEY (Verified Allergy, Unknown, 12/31/19) emtricitabine (Verified Allergy, Unknown, 12/31/19) latex (Verified Allergy, Unknown, 12/31/19) raltegravir (Verified Allergy, Unknown, 12/31/19) sulfamethoxazole (Verified Allergy, Unknown, 12/31/19) tomato (Verified Allergy, Unknown, 12/31/19) trimethoprim (Verified Allergy, Unknown, 12/31/19) LAILA WHITEHEAD MD Jan 24, 2020 17:43
[2020-01-25] MEDS ORDERED: BACI500O21 TOP (20:28)
== END 2020-01-24 15:27 | disposition home or self-care (01) | DRG 755 ==
LOC: M ED 01:11 → EDBD 01:11 → M ED INP 18:21 → M PSY 21:31
PROVIDERS: ADMIT Psychiatry & Neurology Addiction Medicine; ATTEND Psychiatry & Neurology Psychiatry
DX: F43.10 Post-traumatic stress disorder, unspecified (principal); F60.3 Borderline personality disorder; Z76.5 Malingerer [conscious simulation]; E28.2 Polycystic ovarian syndrome; I10 Essential (primary) hypertension; E78.5 Hyperlipidemia, unspecified; L55.0 Sunburn of first degree; E66.01 Morbid (severe) obesity due to excess calories; F17.200 Nicotine dependence, unspecified, uncomplicated; Z79.84 Long term (current) use of oral hypoglycemic drugs; Z79.899 Other long term (current) drug therapy; Z88.0 Allergy status to penicillin; Z88.2 Allergy status to sulfonamides; Z88.8 Allergy status to other drugs, medicaments and biological substances; Z91.040 Latex allergy status; Z91.018 Allergy to other foods

== ENCOUNTER 2020-01-25 00:31 | Emergency (ER) | payer OTHER ==
[~2020-01-25] VITALS: Ht 167.6 cm; Wt 147.8 kg
[~2020-01-25 00:31] MED LIST changes: +CETI10TA4 PO; +CLIN150C14 PO; +NICO21DI31 TD
[2020-01-25 01:14] VITALS: BP 112/66
[2020-01-25] MEDS ORDERED: DICYCLOMINE INJ 20MG/2ML (J0500) IM ONE (01:15)
[2020-01-25] MEDS ORDERED: BACI500O21 TOP (20:28)
== END 2020-01-25 01:22 | disposition home or self-care (01) ==
LOC: M ED 00:31
DX: R10.9 Unspecified abdominal pain (principal); G89.29 Other chronic pain; F60.3 Borderline personality disorder; Z76.5 Malingerer [conscious simulation]; R11.0 Nausea; R19.7 Diarrhea, unspecified; R73.03 Prediabetes; E28.2 Polycystic ovarian syndrome; Z79.899 Other long term (current) drug therapy; Z79.84 Long term (current) use of oral hypoglycemic drugs; Z88.0 Allergy status to penicillin; Z88.2 Allergy status to sulfonamides; Z88.1 Allergy status to other antibiotic agents; Z91.018 Allergy to other foods; Z91.040 Latex allergy status
CPT/HCPCS: 96372; 99284; J0500

== ENCOUNTER 2020-01-25 03:19 | Emergency (ER) | payer OTHER ==
[~2020-01-25] VITALS: Ht 167.6 cm; Wt 95.0 kg
[~2020-01-25 03:19] MED LIST changes: -ALL10TAB29 PO; +CETI-24 PO
[2020-01-25 03:31] VITALS: BP 131/59
[2020-01-25] MEDS ORDERED: BACI500O21 TOP (20:28)
[2020-02-08] MEDS ORDERED: D31000TA2 PO (11:50)
== END 2020-01-25 04:33 | disposition home or self-care (01) ==
LOC: M ED 03:19
DX: Z76.5 Malingerer [conscious simulation] (principal); F60.3 Borderline personality disorder; R10.9 Unspecified abdominal pain; G89.29 Other chronic pain; Z88.0 Allergy status to penicillin; Z88.2 Allergy status to sulfonamides; Z88.1 Allergy status to other antibiotic agents; Z88.8 Allergy status to other drugs, medicaments and biological substances; Z91.018 Allergy to other foods; Z91.040 Latex allergy status; Z79.899 Other long term (current) drug therapy; Z79.84 Long term (current) use of oral hypoglycemic drugs

== ENCOUNTER 2020-01-25 18:35 | Emergency (ER) | payer OTHER ==
[~2020-01-25] VITALS: Ht 167.6 cm; Wt 158.1 kg
[2020-01-25] MEDS ORDERED: BACI500O21 TOP (20:28)
[2020-01-25 20:41] VITALS: BP 136/66
--- NOTE | 2020-01-26 09:55 | REP ---
Two-view chest: 01/25/2020. Indication: Dyspnea. Comparison: 12/24/2019. Findings: There is no airspace consolidation. The lungs are clear. There is no pleural effusion or pneumothorax. The cardiac silhouette is unremarkable. Impression: Clear lungs. Electronically Signed by Derrick Soliman DO 01/26/2020 09:46 A
[2020-02-08] MEDS ORDERED: D31000TA2 PO (11:50)
== END 2020-01-25 20:45 | disposition home or self-care (01) ==
LOC: M ED 18:35
DX: R05 Cough (principal); M25.572 Pain in left ankle and joints of left foot; N61.0 Mastitis without abscess; I10 Essential (primary) hypertension; F17.210 Nicotine dependence, cigarettes, uncomplicated; F12.10 Cannabis abuse, uncomplicated; Z88.0 Allergy status to penicillin; Z88.2 Allergy status to sulfonamides; Z88.8 Allergy status to other drugs, medicaments and biological substances; Z91.018 Allergy to other foods; Z91.040 Latex allergy status; Z79.899 Other long term (current) drug therapy; Z79.84 Long term (current) use of oral hypoglycemic drugs

== ENCOUNTER 2020-01-27 04:49 | Emergency (ER) | payer OTHER ==
[~2020-01-27] VITALS: Ht 167.6 cm; Wt 94.1 kg
[~2020-01-27 04:49] MED LIST changes: +ALL10TAB29 PO; +BACI500O21 TOP; -CETI-24 PO
[2020-01-27] MEDS ORDERED: ACETAMINOPHEN TAB 650MG DOSE (2X325MG) PO ONE (06:30)
[2020-01-27 07:13] LABS: BASO % 0.4 % (0.0-1.0); EOS # 0.5 10^3/uL (0.0-0.5); EOS % 6.4 % (0.0-3.0); HEMATOCRIT 37.2 % (36.0-47.0); HEMOGLOBIN 11.5 g/dl (12.0-15.5); LYMPH # 2.4 10^3/uL (1.5-5.0); LYMPH % 31.3 % (24.0-44.0); MEAN CORPUSCULAR HEMOGLOBIN 27.6 pg (27.0-33.0); MEAN CORPUSCULAR HGB CONC 30.9 g/dl (32.0-36.5); MEAN CORPUSCULAR VOLUME 89.4 fl (80.0-96.0); MONO # 0.7 10^3/uL (0.0-0.8); MONO % 9.7 % (0.0-5.0); NEUTROPHILS # 3.9 10^3/uL (1.5-8.5); NEUTROPHILS % 51.8 % (36.0-66.0); PLATELET COUNT, AUTOMATED 194 10^3/uL (150-450); RED BLOOD COUNT 4.16 10^6/uL (4.00-5.40); WHITE BLOOD COUNT 7.6 10^3/uL (4.0-10.0)
[2020-01-27 07:32] LABS: ALBUMIN 3.4 GM/DL (3.2-5.2); ALT/SGPT 38 U/L (12-78); BILIRUBIN,DIRECT < 0.1 MG/DL (0.0-0.2); BILIRUBIN,TOTAL 0.2 MG/DL (0.2-1.0); BLOOD UREA NITROGEN 6 MG/DL (7-18); CALCIUM LEVEL 8.4 MG/DL (8.5-10.1); CARBON DIOXIDE LEVEL 29 MEQ/L (21-32); CHLORIDE LEVEL 109 MEQ/L (98-107); CREATININE FOR GFR 0.69 MG/DL (0.55-1.30); GLOMERULAR FILTRATION RATE > 60.0 (>60); GLUCOSE, FASTING 86 MG/DL (70-100); LIPASE 112 U/L (73-393); SODIUM LEVEL 142 MEQ/L (136-145); TOTAL PROTEIN 6.6 GM/DL (6.4-8.2)
--- NOTE | 2020-01-27 08:24 | REPVR ---
PROCEDURE INFORMATION: Exam: US Pelvis Complete, Transabdominal and US Pelvis, Transvaginal Exam date and time: 01/27/2020 8:07 AM Age: 19 years old Clinical indication: Pelvic pain; Prior surgery; Surgery date: 6+ months; Additional info: Diffuse lower abd pain, h/o pcos TECHNIQUE: Imaging protocol: Real-time transabdominal and transvaginal pelvic ultrasound (complete) with image documentation. Transvaginal imaging was used for better evaluation of the endometrium and adnexa. COMPARISON: US PELVIC NON-OB COMPLETE 12/10/2018 5:43 PM FINDINGS: Limitations: Bowel gas. Uterus/cervix: The uterus measures 7.9 x 3.4 x 3.1 cm transabdominally. It is homogeneous in echotexture, without demonstrated lesion. The endometrium superiorly measures 3.9 mm in thickness transabdominally and 2.4 mm transvaginally. There is some fluid in the lower uterine endometrium and cervix. Right adnexa: The right ovary could not be identified transabdominally or transvaginally. Left adnexa: There has again been prior left oophorectomy. Free fluid: No significant free fluid is demonstrated in the cul-de-sac. Bladder: Unremarkable as visualized. IMPRESSION: 1. Fluid in the lower uterine endometrium and cervix, significance uncertain. 2. Right ovary not identified. 3. Prior left oophorectomy. Electronically signed by: Satish Oliver On 01/27/2020 08:23:57 AM
[2020-01-27] MEDS ORDERED: NEOM28.3 TP (09:19)
[2020-01-27 09:31] VITALS: BP 108/76
== END 2020-01-27 09:32 | disposition home or self-care (01) ==
LOC: M ED 04:49 → EDBD 04:49 → M ED 09:32
DX: F42.4 Excoriation (skin-picking) disorder (principal); F25.9 Schizoaffective disorder, unspecified; F60.3 Borderline personality disorder; F43.12 Post-traumatic stress disorder, chronic; R10.30 Lower abdominal pain, unspecified; G89.29 Other chronic pain; I10 Essential (primary) hypertension; R73.03 Prediabetes; E78.5 Hyperlipidemia, unspecified; E28.2 Polycystic ovarian syndrome; J45.909 Unspecified asthma, uncomplicated; G43.909 Migraine, unspecified, not intractable, without status migrainosus; F17.200 Nicotine dependence, unspecified, uncomplicated; F12.10 Cannabis abuse, uncomplicated; Z88.0 Allergy status to penicillin; Z88.2 Allergy status to sulfonamides; Z88.8 Allergy status to other drugs, medicaments and biological substances; Z91.018 Allergy to other foods; Z91.040 Latex allergy status; Z79.899 Other long term (current) drug therapy; Z79.2 Long term (current) use of antibiotics; Z79.84 Long term (current) use of oral hypoglycemic drugs

== ENCOUNTER 2020-01-27 20:48 | Emergency (ER) | payer OTHER ==
[~2020-01-27] VITALS: Ht 167.6 cm; Wt 205.0 kg
[~2020-01-27 20:48] MED LIST changes: +NEOM28.3 TP
[2020-01-27 21:00] VITALS: BP 133/75
== END 2020-01-27 21:22 | disposition home or self-care (01) ==
LOC: M ED 20:48
DX: Z60.9 Problem related to social environment, unspecified (principal); Z73.89 Other problems related to life management difficulty

== ENCOUNTER 2020-01-27 21:51 | Emergency (ER) | payer OTHER ==
[2020-01-27 22:13] VITALS: BP 149/79
== END 2020-01-27 23:37 | disposition home or self-care (01) ==
LOC: M ED 21:51
DX: Z60.9 Problem related to social environment, unspecified (principal); Z73.89 Other problems related to life management difficulty; E11.9 Type 2 diabetes mellitus without complications; I10 Essential (primary) hypertension; F60.3 Borderline personality disorder; Z79.899 Other long term (current) drug therapy; Z79.84 Long term (current) use of oral hypoglycemic drugs

== ENCOUNTER 2020-01-28 15:05 | Emergency (ER) | payer OTHER ==
[~2020-01-28] VITALS: Ht 167.6 cm; Wt 152.3 kg
[2020-01-28] MEDS ORDERED: LIDOCAINE W/EPINEPHRINE 1% 20ML VIAL As Ordered ONE (15:51)
[2020-01-28] MEDS ORDERED: LIDOCAINE W/EPINEPHRINE 1% 20ML VIAL SC ONE (16:00)
[2020-01-28 16:33] VITALS: BP 151/99
== END 2020-01-28 16:38 | disposition home or self-care (01) ==
LOC: M ED 15:05
DX: S61.411A Laceration without foreign body of right hand, initial encounter (principal); W26.0XXA Contact with knife, initial encounter; Y92.000 Kitchen of unspecified non-institutional (private) residence as the place of occurrence of the external cause; Y93.9 Activity, unspecified; Y99.9 Unspecified external cause status; F17.210 Nicotine dependence, cigarettes, uncomplicated; F43.10 Post-traumatic stress disorder, unspecified; F31.9 Bipolar disorder, unspecified

== ENCOUNTER 2020-01-28 19:34 | Emergency (ER) | payer OTHER ==
[~2020-01-28] VITALS: Ht 167.6 cm; Wt 152.3 kg
[2020-01-28 19:40] VITALS: BP 132/84
[2020-01-28] MEDS ORDERED: ACETAMINOPHEN TAB 650MG DOSE (2X325MG) PO ONE (20:30)
== END 2020-01-28 20:29 | disposition home or self-care (01) ==
LOC: M ED 19:34
DX: Z76.5 Malingerer [conscious simulation] (principal); E11.9 Type 2 diabetes mellitus without complications; I10 Essential (primary) hypertension; Z88.2 Allergy status to sulfonamides; Z91.040 Latex allergy status; Z88.0 Allergy status to penicillin; Z88.8 Allergy status to other drugs, medicaments and biological substances; Z91.018 Allergy to other foods

== ENCOUNTER 2020-01-29 17:37 | Emergency (ER) | payer OTHER ==
[~2020-01-29] VITALS: Ht 167.6 cm; Wt 95.0 kg
[2020-01-29 18:20] LABS: HEMOGLOBIN 10.9 g/dl (12.0-15.5); MEAN CORPUSCULAR HEMOGLOBIN 27.9 pg (27.0-33.0); MEAN CORPUSCULAR HGB CONC 31.1 g/dl (32.0-36.5); MEAN CORPUSCULAR VOLUME 89.5 fl (80.0-96.0); PLATELET COUNT, AUTOMATED 174 10^3/uL (150-450); RED BLOOD COUNT 3.91 10^6/uL (4.00-5.40); WHITE BLOOD COUNT 5.6 10^3/uL (4.0-10.0)
[2020-01-29 19:11] LABS: ERYTHROCYTE SEDIMENTATION RATE 18 mm/hr (0-20)
[2020-01-29 20:38] VITALS: BP 148/81
== END 2020-01-29 23:25 | disposition home or self-care (01) ==
LOC: EDBD 17:37 → M ED 17:37
DX: L73.9 Follicular disorder, unspecified (principal); I10 Essential (primary) hypertension; F17.200 Nicotine dependence, unspecified, uncomplicated; Z88.0 Allergy status to penicillin; Z88.2 Allergy status to sulfonamides; Z91.040 Latex allergy status; Z91.018 Allergy to other foods

== ENCOUNTER 2020-01-30 11:07 | Emergency (ER) | payer OTHER ==
[~2020-01-30] VITALS: Ht 167.6 cm; Wt 152.3 kg
[2020-01-30] MEDS ORDERED: DERMABOND TOPICAL SKIN ADHESIVE TOP ONE (13:15)
[2020-01-30 13:40] VITALS: BP 137/89
--- NOTE | 2020-01-30 14:22 | REP ---
Right hand series: Four views. History: Swelling and pain. Comparison right wrist radiographs are from April 16, 2018. Findings: Four views of the right hand demonstrate normal bones, joints, and soft unremarkable soft tissues. No fracture or subluxation is seen. Impression: No acute abnormality. Electronically Signed by Herman Anthony MD 01/30/2020 02:13 P
[2020-01-31] MEDS ORDERED: TRAZ-252 PO (16:55)
[2020-01-31] MEDS ORDERED: NEOM28.3 TOP (16:55)
[2020-01-31] MEDS ORDERED: VENL75CA2 PO (16:55)
[2020-01-31] MEDS ORDERED: CYCL-707 PO (16:56)
[2020-01-31] MEDS ORDERED: DOXY100T2 PO (16:56)
== END 2020-01-30 13:42 | disposition home or self-care (01) ==
LOC: M ED 11:07
DX: S61.411D Laceration without foreign body of right hand, subsequent encounter (principal); F17.210 Nicotine dependence, cigarettes, uncomplicated; I10 Essential (primary) hypertension; E78.5 Hyperlipidemia, unspecified; E11.9 Type 2 diabetes mellitus without complications; Z79.84 Long term (current) use of oral hypoglycemic drugs; Z79.899 Other long term (current) drug therapy; Y99.8 Other external cause status; Y92.89 Other specified places as the place of occurrence of the external cause; Y93.89 Activity, other specified; X58.XXXD Exposure to other specified factors, subsequent encounter

== ENCOUNTER 2020-01-30 17:54 | Emergency (ER) | payer OTHER ==
[~2020-01-30] VITALS: Ht 167.6 cm; Wt 152.8 kg
[2020-01-30] MEDS ORDERED: DERMABOND TOPICAL SKIN ADHESIVE TOP ONE (20:00)
[2020-01-30 20:26] VITALS: BP 126/74
[2020-01-31] MEDS ORDERED: NEOM28.3 TOP (16:55)
[2020-01-31] MEDS ORDERED: TRAZ-252 PO (16:55)
[2020-01-31] MEDS ORDERED: VENL75CA2 PO (16:55)
[2020-01-31] MEDS ORDERED: CYCL-707 PO (16:56)
[2020-01-31] MEDS ORDERED: DOXY100T2 PO (16:56)
== END 2020-01-30 20:35 | disposition home or self-care (01) ==
LOC: M ED 17:54
DX: S61.411D Laceration without foreign body of right hand, subsequent encounter (principal); I10 Essential (primary) hypertension; E11.9 Type 2 diabetes mellitus without complications; K21.9 Gastro-esophageal reflux disease without esophagitis; Z79.899 Other long term (current) drug therapy; Z88.0 Allergy status to penicillin; Z88.1 Allergy status to other antibiotic agents; Z88.2 Allergy status to sulfonamides; Z91.018 Allergy to other foods; Z91.040 Latex allergy status

== ENCOUNTER 2020-01-31 11:03 | Inpatient (IN) | payer OTHER ==
[~2020-01-31] VITALS: Ht 167.6 cm; Wt 95.0 kg
[~2020-01-31 11:03] MED LIST changes: -ALL10TAB29 PO; +CETI-24 PO; -CLIN150C14 PO; +CLIN150C15 PO; +ESCI10TA16 PO; -ESCI10TA2 PO; +GABA-282 PO; -GABA-843 PO; +IBUP1TAB5 PO; -IBUP40TA PO; +METH-1165 PO; -METH750T2 PO; +MIRT-62 PO; +NICO1DIS12 TD; -NICO21DI31 TD; -REME15TA PO
[2020-01-31 12:27] LABS: HEMATOCRIT 38.1 % (36.0-47.0); HEMOGLOBIN 11.6 g/dl (12.0-15.5); MEAN CORPUSCULAR HEMOGLOBIN 27.1 pg (27.0-33.0); MEAN CORPUSCULAR HGB CONC 30.4 g/dl (32.0-36.5); PLATELET COUNT, AUTOMATED 173 10^3/uL (150-450); RED BLOOD COUNT 4.28 10^6/uL (4.00-5.40); WHITE BLOOD COUNT 5.7 10^3/uL (4.0-10.0)
[2020-01-31 12:52] LABS: AMPHETAMINES LEVEL URINE NEGATIVE (NEGATIVE); BARBITURATES URINE NEGATIVE (NEGATIVE); BENZODIAZEPINES URINE NEGATIVE (NEGATIVE); CANNABINOIDS URINE NEGATIVE (NEGATIVE); COCAINE METABOLITE URINE NEGATIVE (NEGATIVE); METHADONE URINE NEGATIVE (NEGATIVE); OPIATES URINE NEGATIVE (NEGATIVE); PHENCYCLIDINE URINE NEGATIVE (NEGATIVE)
[2020-01-31 13:02] LABS: ACETAMINOPHEN LEVEL < 2.0 UG/ML (10.0-30.0); ALBUMIN 3.5 GM/DL (3.2-5.2); ALT/SGPT 41 U/L (12-78); BILIRUBIN,DIRECT < 0.1 MG/DL (0.0-0.2); BILIRUBIN,TOTAL 0.4 MG/DL (0.2-1.0); BLOOD UREA NITROGEN 15 MG/DL (7-18); CALCIUM LEVEL 8.6 MG/DL (8.5-10.1); CARBON DIOXIDE LEVEL 29 MEQ/L (21-32); CHLORIDE LEVEL 108 MEQ/L (98-107); CREATININE FOR GFR 0.69 MG/DL (0.55-1.30); ETHYL ALCOHOL (ETHANOL) 0.003 % (0.000-0.010); GLOMERULAR FILTRATION RATE > 60.0 (>60); GLUCOSE, FASTING 80 MG/DL (70-100); POTASSIUM SERUM 4.1 MEQ/L (3.5-5.1); SALICYLATE LEVEL < 1.7 MG/DL (5.0-30.0); SODIUM LEVEL 141 MEQ/L (136-145); TOTAL PROTEIN 6.7 GM/DL (6.4-8.2)
[2020-01-31 13:06] LABS: HCG, SERUM QUALITATIVE NEGATIVE (NEGATIVE)
[2020-01-31] MEDS ORDERED: TRAZ-252 PO (16:55)
[2020-01-31] MEDS ORDERED: VENL75CA2 PO (16:55)
[2020-01-31] MEDS ORDERED: NEOM28.3 TOP (16:55)
[2020-01-31] MEDS ORDERED: CYCL-707 PO (16:56)
[2020-01-31] MEDS ORDERED: DOXY100T2 PO (16:56)
[2020-01-31] MEDS ORDERED: metFORMIN (GLUCOPHAGE) 500MG TAB PO ONE (17:30)
[2020-01-31] MEDS ORDERED: IBUPROFEN 600MG TAB PO ONE (17:30)
[2020-01-31] MEDS ORDERED: SUCRALFATE 1 GM TAB PO ONE (17:30)
[2020-01-31] MEDS: metFORMIN (GLUCOPHAGE) 500MG TAB PO SCH (18:00)
[2020-01-31] MEDS: NEOSPORIN TOP OINT 15GM TOP SCH (18:45)
[2020-01-31] MEDS ORDERED: NICOTINE 21MG/24HR 1 EA TRANSDERMAL TD PRN (18:45)
[2020-01-31 19:11] VITALS: BP 130/74
[2020-01-31] MEDS: DOXYCYCLINE HYCLATE 100MG TABLET PO SCH (20:37)
[2020-01-31] MEDS: SUCRALFATE 1 GM TAB PO SCH (20:37)
[2020-01-31] MEDS: traZODone 50 MG TAB PO SCH (20:38)
[2020-01-31] MEDS: CYCLOBENZAPRINE 10MG TABLET PO SCH (20:38)
[2020-01-31] MEDS: PRAZOSIN 1 MG CAP PO SCH (20:39)
[2020-01-31] MEDS: MIRTAZAPINE 15 MG TAB PO PRN (20:45)
[2020-01-31] MEDS: hydrOXYzine 50 MG TAB PO PRN (20:45)
[2020-01-31] MEDS ORDERED: LORazepam 2 MG TAB As Ordered ONE (20:48)
[2020-01-31] MEDS ORDERED: LORazepam 2 MG TAB PO STA (20:55)
[2020-02-01 06:49] VITALS: BP 117/54
[2020-02-01] MEDS: DOXYCYCLINE HYCLATE 100MG TABLET PO SCH ×2 (08:12→20:22)
[2020-02-01] MEDS: SUCRALFATE 1 GM TAB PO SCH ×4 (08:12→20:22)
[2020-02-01] MEDS: VENLAFAXINE **XR** 75MG CAPSULE PO SCH (08:12)
[2020-02-01] MEDS: IBUPROFEN 600MG TAB PO PRN ×2 (08:13→17:33)
[2020-02-01] MEDS: metFORMIN (GLUCOPHAGE) 500MG TAB PO SCH ×3 (08:13→17:34)
[2020-02-01] MEDS: BENZTROPINE 2 MG TAB PO SCH (08:13)
[2020-02-01] MEDS: CYCLOBENZAPRINE 10MG TABLET PO SCH ×2 (08:13→20:22)
[2020-02-01] MEDS: CETIRIZINE (ZyrTEC) 10 MG TAB PO SCH (08:13)
[2020-02-01] MEDS: haloperidoL 5 MG TAB PO SCH (08:18)
[2020-02-01] MEDS: NEOSPORIN TOP OINT 15GM TOP SCH (09:00)
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
--- NOTE | 2020-02-01 12:24 | HPEPDOC ---
General Date of Admission Jan 31, 2020 at 16:09 Date of Service: Feb 01, 2020 Chief Complaint The patient is a 19-year-old female admitted with a reason for visit of Depressive Disorder. Source: Patient Exam Limitations: No limitations Timing/Duration: Day(s) Severity: Mild History of Present Illness 19 year old female with obesity, PCOS, hypertension admitted to [facility] for depression. I am seeing the patient for medical history and physical. Today she complains of mild laceration of right hand. Patient denied fever, chills, nausea, vomiting, chest pain, palpitations diarrhea or dysuria Home Medications Scheduled Benztropine Mesylate (Benztropine Mesylate) 2 Mg Tablet, 2 MG PO DAILY for , (Reported) Cetirizine HCl (Cetirizine HCl) 10 Mg Tablet, 10 MG PO DAILY, (Reported) Cyclobenzaprine HCl (Cyclobenzaprine HCl) 10 Mg Tablet, 10 MG PO BID, (Reported) Doxycycline Hyclate (Doxycycline Hyclate) 100 Mg Tablet, 100 MG PO BID, (Rep orted) FOR 10 DAYS, NOT STARTED Haloperidol (Haloperidol) 5 Mg Tablet, 5 MG PO DAILY for , (Reported) Metformin HCl (Metformin HCl) 500 Mg Tablet, 500 MG PO TID for , (Reported) Neomycin/Bacitracin/Polymyxinb (Neosporin Ointment) 28.3 Gm Oint...g., 1 APLCT TOP ASDIRECTED, (Reported) WITH EACH DRESSING CHANGE ON RIGHT HAND Prazosin Hcl (Prazosin HCl) 1 Mg Capsule, 3 MG PO QHS for , (Reported) Sucralfate (Sucralfate) 1 Gm Tablet, 1 GRAM PO ACHS for , (Reported) Trazodone HCl (Trazodone HCl) 50 Mg Tablet, 50 MG PO QHS, (Reported) Venlafaxine HCl (Venlafaxine HCl ER) 75 Mg Cap.er.24h, 225 MG PO DAILY, (Reported) Scheduled PRN Hydroxyzine Pamoate (Hydroxyzine Pamoate) 50 Mg Capsule, 50 MG PO Q6H PRN for ANXIETY, (Reported) Ibuprofen (Ibuprofen) 600 Mg Tablet, 600 MG PO TID PRN for PAIN, (Reported) Mirtazapine (Remeron) 15 Mg Tablet, 15 MG PO QHS PRN for INSOMNIA, (Reported) Nicotine (Nicotine Patch) 21 Mg Patch.td24, 21 MG TD DAILY PRN for SMOKING CESSATION, (Reported) Allergies Coded Allergies: RUBBER (Verified Allergy, Intermediate, 12/31/19) Mushroom (Verified Allergy, Unknown, 12/31/19) Penicillins (Verified Allergy, Unknown, 12/31/19) Sulfa (Sulfonamide Antibiotics) (Verified Allergy, Unknown, 12/31/19) TURKEY (Verified Allergy, Unknown, 12/31/19) emtricitabine (Verified Allergy, Unknown, 12/31/19) latex (Verified Allergy, Unknown, 12/31/19) raltegravir (Verified Allergy, Unknown, 12/31/19) sulfamethoxazole (Verified Allergy, Unknown, 12/31/19) tomato (Verified Allergy, Unknown, 12/31/19) trimethoprim (Verified Allergy, Unknown, 12/31/19) Past Medical History Medical History Morbid Obesity Depression PTSD, Asthma, Borderline Personality disorder, PCOS Surgical History Adenoidectomy Tosillectomy Appendectomy L. Oopherectomy Family History Patient refused to discuss family history Social History * Smoker: current smoker Alcohol: Denies Drugs: denies, marijuana A-FIB/CHADSVASC A-FIB History Current/History of A-Fib/PAF?: No Current PO Anticoag Therapy: No Review of Systems Constitutional: Denies: Chills, Fever Eyes: Denies: Pain, Vision change ENT: Denies: Head Aches Skin: Reports: Lesions, Breakdown (small laceration of right hand) Pulmonary: Denies: Dyspnea Cardiovascular: Denies: Chest Pain, Palpitations Gastrointestinal: Denies: Nausea, Vomiting Genitourinary: Denies: Dysuria Hematologic: Denies: Bruising Endocrine: Denies: Polydipsia Musculoskeletal: Denies: Neck Pain Neurological: Denies: Weakness Psych: Reports: Depression; Denies: Mood Normal Physical Examination General Exam: Positive: No Acute Distress Eye Exam: Positive: PERRLA ENT Exam: Positive: Atraumatic Neck Exam: Positive: Supple; Negative: JVD Heart Exam: Positive: Rate Normal Telemetry: Positive: No significant arrhythmia Abdomen Exam: Positive: Normal bowel sounds Extremity Exam: Negative: Clubbing, Cyanosis Skin Exam: Positive: Breakdown (small ulceration of right hand) Neuro Exam: Positive: Normal Gait, Strength at 5/5 X4 ext Psych Exam: Positive: Anxiety; Negative: Mental status NL Vital Signs Vital Signs Date Time Temp Pulse Resp B/P (MAP) Pulse Ox O2 Delivery O2 Flow Rate FiO2 02/01/20 06:49 97.7 82 16 117/54 (75) 93 Room Air Assessment/Plan 19 year old female with obesity, PCOS, hypertension admitted to [facility] for depression. I am seeing the patient for medical history and physical. Today she complains of mild laceration of right hand. Patient denied fever, chills, naus ea, vomiting, chest pain, palpitations diarrhea or dysuria Problems (1) Behavior disorder Status: Acute Problem Text: We'll defer treatment psych team (2) Hand laceration Status: Acute Problem Text: Bacitracin topically (3) Hypertension Status: Chronic Problem Text: Blood pressures under control Continue to monitor (4) Obesity (BMI 30-39.9) Status: Chronic Problem Text: Complicated care [employer] Helper consult in the outpatient settings (5) Hyperlipidemia Status: Chronic Problem Text: Continue Atorvastatin 20 mg Plan / VTE VTE Prophylaxis Ordered?: No VTE Exclusion Mechanical Proph: Low Risk for VTE SHARIFA GANN DO Feb 01, 2020 12:24
[2020-02-01] MEDS: ATORVASTATIN 20 MG TAB PO SCH (12:50)
[2020-02-01] MEDS ORDERED: BACITRACIN OINTMENT 30GM TUBE TOP SCH (15:00)
[2020-02-01 15:39] VITALS: BP 114/53
[2020-02-01] MEDS: hydrOXYzine 50 MG TAB PO PRN (19:35)
[2020-02-01] MEDS: traZODone 50 MG TAB PO SCH (20:22)
[2020-02-01] MEDS: PRAZOSIN 1 MG CAP PO SCH (20:22)
[2020-02-02 06:22] VITALS: BP 103/50
[2020-02-02] MEDS: SUCRALFATE 1 GM TAB PO SCH ×4 (07:47→20:08)
[2020-02-02] MEDS: metFORMIN (GLUCOPHAGE) 500MG TAB PO SCH ×3 (07:47→17:45)
[2020-02-02] MEDS: NEOSPORIN TOP OINT 15GM TOP SCH (08:04)
[2020-02-02] MEDS: CETIRIZINE (ZyrTEC) 10 MG TAB PO SCH (08:09)
[2020-02-02] MEDS: BENZTROPINE 2 MG TAB PO SCH (08:09)
[2020-02-02] MEDS: VENLAFAXINE **XR** 75MG CAPSULE PO SCH (08:09)
[2020-02-02] MEDS: haloperidoL 5 MG TAB PO SCH ×2 (08:09→20:08)
[2020-02-02] MEDS: CYCLOBENZAPRINE 10MG TABLET PO SCH ×2 (08:09→20:08)
[2020-02-02] MEDS: DOXYCYCLINE HYCLATE 100MG TABLET PO SCH ×2 (08:09→20:08)
[2020-02-02] MEDS: ATORVASTATIN 20 MG TAB PO SCH (08:09)
[2020-02-02] MEDS: IBUPROFEN 600MG TAB PO PRN ×3 (08:09→20:45)
[2020-02-02 15:39] VITALS: BP 134/70
[2020-02-02] MEDS: PRAZOSIN 1 MG CAP PO SCH (20:08)
[2020-02-02] MEDS: traZODone 50 MG TAB PO SCH (20:08)
[2020-02-03 06:30] VITALS: BP 118/57
[2020-02-03] MEDS: metFORMIN (GLUCOPHAGE) 500MG TAB PO SCH ×3 (07:40→17:11)
[2020-02-03] MEDS: SUCRALFATE 1 GM TAB PO SCH ×4 (07:40→20:13)
[2020-02-03] MEDS: ATORVASTATIN 20 MG TAB PO SCH (08:11)
[2020-02-03] MEDS: VENLAFAXINE **XR** 75MG CAPSULE PO SCH (08:11)
[2020-02-03] MEDS: BENZTROPINE 2 MG TAB PO SCH (08:11)
[2020-02-03] MEDS: DOXYCYCLINE HYCLATE 100MG TABLET PO SCH ×2 (08:11→20:13)
[2020-02-03] MEDS: CETIRIZINE (ZyrTEC) 10 MG TAB PO SCH (08:11)
[2020-02-03] MEDS: haloperidoL 5 MG TAB PO SCH ×2 (08:11→20:13)
[2020-02-03] MEDS: IBUPROFEN 600MG TAB PO PRN ×2 (08:11→16:46)
[2020-02-03] MEDS: CYCLOBENZAPRINE 10MG TABLET PO SCH ×2 (08:12→20:12)
[2020-02-03] MEDS: NEOSPORIN TOP OINT 15GM TOP SCH (08:12)
--- NOTE | 2020-02-03 09:10 | MHIPN ---
DATE: 02/02/2020 The patient is seen via telepsychiatry due to the current Coronavirus crisis. The patient today states, "I'm feeling tired." She says she is still hearing voices telling her to kill herself. MENTAL STATUS EXAMINATION: This patient is alert and oriented times three. Eye contact is fair. Psychomotor activity is decreased. She responds with appropriate short sentences but is not spontaneous. There is no formal thought disorder noted. She says her mood is "tired." Affect appears to be appropriate to mood. She is having auditory hallucinations, command type, to kill herself. She denies any actual suicidal thoughts or homicidal thoughts. Concentration is fair. Memory intact. Insight and judgment poor. DIAGNOSES: 1. Major depressive disorder, recurrent. 2. Borderline personality disorder. 3. Unspecified intellectual disability. 4. Posttraumatic stress disorder. TREATMENT PLAN: The patient continues to have command auditory hallucinations to kill herself. I would increase the Haldol to 5 mg twice a day and we will continue to monitor the effects of the medications. She is denying suicidal ideations though. [facility]ITALErend[facility]
[2020-02-03] MEDS: hydrOXYzine 50 MG TAB PO PRN ×2 (14:10→20:46)
[2020-02-03 15:54] VITALS: BP 128/66
[2020-02-03] MEDS: MIRTAZAPINE 15 MG TAB PO PRN (20:12)
[2020-02-03] MEDS: traZODone 50 MG TAB PO SCH (20:12)
[2020-02-03] MEDS: CEPACOL LOZENGE PO PRN (20:12)
[2020-02-03] MEDS: PRAZOSIN 1 MG CAP PO SCH (20:15)
[2020-02-04] MEDS: SUCRALFATE 1 GM TAB PO SCH ×4 (07:43→20:10)
[2020-02-04] MEDS: metFORMIN (GLUCOPHAGE) 500MG TAB PO SCH ×3 (07:43→17:02)
[2020-02-04] MEDS: NEOSPORIN TOP OINT 15GM TOP SCH (08:22)
[2020-02-04] MEDS: CETIRIZINE (ZyrTEC) 10 MG TAB PO SCH (08:25)
[2020-02-04] MEDS: CYCLOBENZAPRINE 10MG TABLET PO SCH ×2 (08:25→20:10)
[2020-02-04] MEDS: ATORVASTATIN 20 MG TAB PO SCH (08:25)
[2020-02-04] MEDS: haloperidoL 5 MG TAB PO SCH (08:25)
[2020-02-04] MEDS: BENZTROPINE 2 MG TAB PO SCH (08:25)
[2020-02-04] MEDS: VENLAFAXINE **XR** 75MG CAPSULE PO SCH (08:25)
[2020-02-04] MEDS: DOXYCYCLINE HYCLATE 100MG TABLET PO SCH ×2 (08:25→20:10)
[2020-02-04] MEDS: IBUPROFEN 600MG TAB PO PRN ×2 (08:26→17:02)
--- NOTE | 2020-02-04 11:09 | MHIPN ---
DATE: 02/03/2020 The patient is seen via telepsychiatry due to the current Coronavirus crisis. The patient today is stating "I am feeling better". She said she slept better. She says she continues to hear voices though telling her to kill herself but she is able to contract for safety. MENTAL STATUS EXAMINATION: She is alert and oriented times three. Eye contact is fair. Psychomotor activity is decreased. She has no formal thought disorder noted. She says her mood is "better". Affect is restricted appropriate to mood. She continues to complain of command auditory hallucinations to kill herself but she can contract for safety. She denies homicidal ideations. Concentration is fair. Memory intact. Insight and judgment fair. DIAGNOSES: Major depressive disorder, current unspecified. Borderline personality disorder, unspecified. Intellectual disability. Posttraumatic stress disorder. TREATMENT PLAN: Will continue to monitor the patient for continued command auditory hallucinations. I did increase Haldol yesterday and we will continued to titrate the medication as indicated. MTDD
[2020-02-04 16:38] VITALS: BP 127/75
[2020-02-04] MEDS: CEPACOL LOZENGE PO PRN (17:51)
[2020-02-04] MEDS: hydrOXYzine 50 MG TAB PO PRN (20:10)
[2020-02-04] MEDS: PRAZOSIN 1 MG CAP PO SCH (20:10)
[2020-02-04] MEDS: traZODone 50 MG TAB PO SCH (20:11)
[2020-02-04] MEDS: MIRTAZAPINE 15 MG TAB PO PRN (20:11)
[2020-02-04] MEDS: ACETAMINOPHEN 500 MG TAB PO PRN (20:50)
[2020-02-05 06:18] VITALS: BP 131/64
[2020-02-05] MEDS: SUCRALFATE 1 GM TAB PO SCH ×4 (07:37→20:29)
[2020-02-05] MEDS: metFORMIN (GLUCOPHAGE) 500MG TAB PO SCH ×3 (07:37→17:01)
[2020-02-05] MEDS: ATORVASTATIN 20 MG TAB PO SCH (08:03)
[2020-02-05] MEDS: CETIRIZINE (ZyrTEC) 10 MG TAB PO SCH (08:03)
[2020-02-05] MEDS: VENLAFAXINE **XR** 75MG CAPSULE PO SCH (08:03)
[2020-02-05] MEDS: haloperidoL 5 MG TAB PO SCH (08:03)
[2020-02-05] MEDS: CYCLOBENZAPRINE 10MG TABLET PO SCH ×2 (08:03→20:28)
[2020-02-05] MEDS: IBUPROFEN 600MG TAB PO PRN ×2 (08:04→15:53)
[2020-02-05] MEDS: DOXYCYCLINE HYCLATE 100MG TABLET PO SCH ×2 (08:04→20:29)
[2020-02-05] MEDS: BENZTROPINE 2 MG TAB PO SCH (08:04)
[2020-02-05] MEDS: NEOSPORIN TOP OINT 15GM TOP SCH (08:04)
--- NOTE | 2020-02-05 09:09 | MHIPN ---
DATE OF SERVICE: 02/04/2020 The patient is seen via telepsychiatry due to the current coronavirus crisis. The patient today tells me that she is still having command auditory hallucinations "to kill myself." She then tells me that she wants to be discharged, and I discussed with the patient that if she is having thoughts of killing herself, she is not stable for discharge. MENTAL STATUS EXAMINATION: This patient is alert and oriented times three. She is actually very upset and angry at this time because I told her that I do not feel that it is safe to discharge her. There is no formal thought disorder noted. Mood is angry. Affect is appropriate to mood. She has command auditory hallucinations to kill herself. She tells me she is not suicidal, but I think she is a risk due to her hallucinations. She denies any homicidal ideations. Concentration is fair. Memory intact. Insight and judgment poor. DIAGNOSES: 1. Major depressive disorder, recurrent, unspecified. 2. Borderline personality disorder, unspecified. 3. Intellectual disability. 4. Posttraumatic stress disorder. TREATMENT PLAN: At this point, we will continue to monitor the patient for continued psychotic symptoms. We will go ahead and increase the patient's Haldol to 5 mg every morning and 10 mg nightly.
[2020-02-05] MEDS: ACETAMINOPHEN 500 MG TAB PO PRN ×2 (10:59→18:28)
[2020-02-05 16:34] VITALS: BP 106/56
[2020-02-05] MEDS: CEPACOL LOZENGE PO PRN ×2 (18:28→20:29)
[2020-02-05 20:28] VITALS: BP 137/90
[2020-02-05] MEDS: PRAZOSIN 1 MG CAP PO SCH (20:28)
[2020-02-05] MEDS: traZODone 50 MG TAB PO SCH (20:28)
[2020-02-06 06:27] VITALS: BP 113/57
[2020-02-06] MEDS: SUCRALFATE 1 GM TAB PO SCH ×2 (06:35→11:54)
[2020-02-06] MEDS: metFORMIN (GLUCOPHAGE) 500MG TAB PO SCH ×2 (07:36→11:54)
[2020-02-06] MEDS: NEOSPORIN TOP OINT 15GM TOP SCH (08:31)
[2020-02-06] MEDS: VENLAFAXINE **XR** 75MG CAPSULE PO SCH (08:33)
[2020-02-06] MEDS: haloperidoL 5 MG TAB PO SCH (08:33)
[2020-02-06] MEDS: DOXYCYCLINE HYCLATE 100MG TABLET PO SCH (08:33)
[2020-02-06] MEDS: BENZTROPINE 2 MG TAB PO SCH (08:33)
[2020-02-06] MEDS: ATORVASTATIN 20 MG TAB PO SCH (08:33)
[2020-02-06] MEDS: CYCLOBENZAPRINE 10MG TABLET PO SCH (08:33)
[2020-02-06] MEDS: CETIRIZINE (ZyrTEC) 10 MG TAB PO SCH (08:33)
--- NOTE | 2020-02-06 09:23 | MHIPNPDOC ---
[facility] Progress Note Progress Note DATE OF SERVICE: 02/06/20 HISTORY: . VITAL SIGNS: See below. NEW TEST RESULTS: . CURRENT MEDICATIONS: See below. MENTAL STATUS EXAMINATION: Patient is a -year old female, who is . Speech: Is . Language skills are . Thought processes including: . Thought content: . Abstract reasoning, and computation: . Description of asso ciations: . Description of abnormal or psychotic thoughts: . Judgment: . Insight: [very limited, good, fair. poor]. Orientation: . Recent and remote memory: . Attention span and concentration: . Language: . Fund of knowledge: . Mood: . Affect: . DIAGNOSES: 1. . 2. . 3. . ASSESSMENT: MANAGEMENT PLAN: . TIME SPENT: minutes. Vital Signs Vital Signs Date Time Temp Pulse Resp B/P (MAP) Pulse Ox O2 Delivery O2 Flow Rate FiO2 02/06/20 06:27 98.0 61 14 113/57 (75) Room Air 02/03/20 06:30 96 Current Medications Current Medications Medications (Trade) Dose Ordered Sig/Susy Route PRN Reason Start Time Stop Time Status Last Admin Dose Admin Acetaminophen (Tylenol Tab) 1,000 mg Q6HP PRN PO PAIN / FEVER 02/04/20 20:30 02/05/20 18:28 Atorvastatin Calcium (Lipitor) 20 mg DAILY PO 02/01/20 09:00 02/06/20 08:33 Bacitracin (Bacitracin Oint) Apply Over right hand laceration DAILY TOP 02/01/20 15:00 02/01/20 12:48 DC Benztropine Mesylate (Cogentin) 2 mg DAILY PO 02/01/20 09:00 02/06/20 08:33 Cetirizine HCl (ZyrTEC) 10 mg DAILY PO 02/01/20 09:00 02/06/20 08:33 Cetylpyridinium Chloride (Cepacol) 1 blessing Q2HP PRN PO SORE THROAT 02/03/20 00:00 02/05/20 20:29 Cyclobenzaprine HCl (Flexeril) 10 mg BID PO 01/31/20 21:00 02/06/20 08:33 Doxycycline Hyclate (Vibramycin) 100 mg BID PO 01/31/20 21:00 02/06/20 08:33 Haloperidol (Haldol) 5 mg BID PO 02/02/20 21:00 02/04/20 13:30 DC 02/04/20 08:25 Haloperidol (Haldol) 5 mg DAILY PO 02/01/20 09:00 02/02/20 12:18 DC 02/02/20 08:09 Haloperidol (Haldol) 5 mg QAM PO 02/05/20 09:00 02/06/20 08:33 Haloperidol (Haldol) 10 mg QHS PO 02/04/20 21:00 02/05/20 20:28 Haloperidol (Haldol) 10 mg STAT STAT PO 01/31/20 20:55 01/31/20 20:58 DC 01/31/20 21:10 Home Med (Med Rec Complete!) ASDIRECTED XX 01/31/20 17:00 01/31/20 16:59 DC Hydroxyzine HCl (Atarax) 50 mg Q6H PRN PO ANXIETY 01/31/20 18:45 02/04/20 20:10 Ibuprofen (Advil) 600 mg TID PRN PO PAIN 01/31/20 18:45 02/05/20 15:53 Lorazepam (Ativan) 2 mg STAT STAT PO 01/31/20 20:55 01/31/20 20:58 DC 01/31/20 21:10 Metformin HCl (Glucophage) 500 mg TID@0800,1200,1800 PO 01/31/20 18:00 02/06/20 07:36 Mirtazapine (Remeron) 15 mg QHS PRN PO INSOMNIA 01/31/20 18:45 02/04/20 20:11 Neomycin/ Polymyxin/ Bacitracin (Neosporin) Put on right hand wound Q/am QAM TOP 01/31/20 18:45 Nicotine (Nicoderm Cq 21mg) 1 patch DAILY PRN TD SMOKING CESSATION 01/31/20 18:45 02/02/20 08:08 Prazosin HCl (Minipress) 3 mg QHS PO 01/31/20 21:00 02/05/20 20:28 Sucralfate (Carafate) 1 gm ACHS PO 01/31/20 21:00 02/06/20 06:35 Trazodone HCl (Desyrel) 50 mg QHS PO 01/31/20 21:00 02/05/20 20:28 Venlafaxine HCl (Effexor Xr) 225 mg DAILY PO 02/01/20 09:00 02/06/20 08:33 Allergies Coded Allergies: RUBBER (Verified Allergy, Intermediate, 12/31/19) Mushroom (Verified Allergy, Unknown, 12/31/19) Penicillins (Verified Allergy, Unknown, 12/31/19) Sulfa (Sulfonamide Antibiotics) (Verified Allergy, Unknown, 12/31/19) TURKEY (Verified Allergy, Unknown, 12/31/19) emtricitabine (Verified Allergy, Unknown, 12/31/19) latex (Verified Allergy, Unknown, 12/31/19) raltegravir (Verified Allergy, Unknown, 12/31/19) sulfamethoxazole (Verified Allergy, Unknown, 12/31/19) tomato (Verified Allergy, Unknown, 12/31/19) trimethoprim (Verified Allergy, Unknown, 12/31/19) PHYLLIS RIZZO DO Feb 06, 2020 09:23
[2020-02-06] MEDS: IBUPROFEN 600MG TAB PO PRN (10:24)
--- NOTE | 2020-02-06 10:45 | MHDSPDOC ---
[facility] Discharge Summary Discharge Summary DATE OF ADMISSION: Jan 31, 2020 at 16:09 DATE OF DISCHARGE: 02/06/2020 DISCHARGE DIAGNOSES: See Problem list below REASON FOR ADMISSION: 19-year-old woman admitted for suicidal ideation in the context of recently losing her housing CONSULTANTS INVOLVED:[ None (basic hospitalist screening)] TREATMENT AND PROGRESS ON THE UNIT : Medication changes: kept on previously effective Effexor 225 mg daily, as well as Haldol 5 mg in the morning, the patient had not been taking her medications prior to admission, she was then increased to 10 mg of Haldol at night. In addition to her morning dose with positive effects. The patient stabilized as she was able to find housing and became more euthymic. She had a few episodes of auditory hallucinations telling her to kill herself, however, she did well and improved and had well over 24 hours of stability before discharge Behavior on unit: initially irritable and demeaning, she improved and became more amenable over her mission Treatment attendance: attended at times Notable issues on presentation: housing which was addressed State on discharge: [improved] DISCHARGE ASSESSMENT: The patient a 19 year old woman, with likely adjustment problems in addition to portal and personality disorder, presented to [facility], where they treated with previously effective medications being restarted with minor titrations. Legal status considerations: The patient at the time of discharge did not meet criteria for involuntary admission/extension due to having a baseline mental status exam, baseline insight into the situation, They are engaged in the discharge process, as well as being friendly and amenable in behavioral control and havent been engaging i n any observed concerning behavior or ideation recently. They decline voluntary extension/admission at this time and must be discharged in good saniya, as unable to make a case for holding the patient against their will. They may have historical risk factors of admissions and other interactions with psychiatry however, those are not modifiable from a clinical perspective. The patient will need to be discharged in good saniya. MENTAL STATUS EXAMINATION ON DISCHARGE: General: [Well dressed with good hygiene] Speech: [Spontaneous and fluid] Thought processes: [Linear and logical] Thought content: [Future orientated] Abstract reasoning, and computation: [Intact] Description of associations: [Intact] Description of abnormal or psychotic thoughts:[Denies any suicidal or homicidal ideation. Denies any auditory or visual hallucinations. Does not appear to be responding to internal stimuli. Does not appear to be endorsing any bizarre or paranoid ideation.] Judgment: chronically limited Insight: chronically limited Orientation: [Alert and orientated 3] Recent and remote memory: [Intact] Attention span and concentration: [Intact] Fund of knowledge: [Adequate] Mood: ["okay"] Affect: [Euthymic with a full range] PLAN/FOLLOWUP ARRANGEMENTS: Follow up appointments made (PCP and MH in 5 days of D/C date) and safety plan completed. Safety Planning aspects completed prior to discharge [Medication supplies limited to 7 days with 4 refills to prevent accumulation to OD] [RN reviewed crisis hotline information and other aspects to empower patient to access care in interim before next appointment.] The amount of time spent in the coordination of care for this patient was approximately 30 minutes. Vital Signs/I&Os Vital Signs Date Time Temp Pulse Resp B/P (MAP) Pulse Ox O2 Delivery O2 Flow Rate FiO2 02/06/20 06:27 98.0 61 14 113/57 (75) Room Air 02/03/20 06:30 96 Medications Scheduled Benztropine Mesylate (Benztropine Mesylate) 2 Mg Tablet, 2 MG PO DAILY for , (Reported) Cetirizine HCl (Cetirizine HCl) 10 Mg Tablet, 10 MG PO DAILY, (Reported) Cyclobenzaprine HCl (Cyclobenzaprine HCl) 10 Mg Tablet, 10 MG PO BID, (Reported) Doxycycline Hyclate (Doxycycline Hyclate) 100 Mg Tablet, 100 MG PO BID, (Reported) FOR 10 DAYS, NOT STARTED Haloperidol (Haloperidol) 5 Mg Tablet, 5 MG PO DAILY for , (Reported) Haloperidol (Haloperidol) 10 Mg Tablet, 10 MG PO QHS for thoughts for 7 Days, #7 Metformin HCl (Metformin HCl) 500 Mg Tablet, 500 MG PO TID for , (Reported) Neomycin/Bacitracin/Polymyxinb (Neosporin Ointment) 28.3 Gm Oint...g., 1 APLCT TOP ASDIRECTED, (Reported) WITH EACH DRESSING CHANGE ON RIGHT HAND Prazosin Hcl (Prazosin HCl) 1 Mg Capsule, 3 MG PO QHS for , (Reported) Sucralfate (Sucralfate) 1 Gm Tablet, 1 GRAM PO ACHS for , (Reported) Trazodone HCl (Trazodone HCl) 50 Mg Tablet, 50 MG PO QHS, (Reported) Venlafaxine HCl (Venlafaxine HCl ER) 75 Mg Cap.er.24h, 225 MG PO DAILY, (Reported) Scheduled PRN Hydroxyzine Pamoate (Hydroxyzine Pamoate) 50 Mg Capsule, 50 MG PO Q6H PRN for ANXIETY, (Reported) Ibuprofen (Ibuprofen) 600 Mg Tablet, 600 MG PO TID PRN for PAIN, (Reported) Mirtazapine (Remeron) 15 Mg Tablet, 15 MG PO QHS PRN for INSOMNIA, (Reported) Nicotine (Nicotine Patch) 21 Mg Patch.td24, 21 MG TD DAILY PRN for SMOKING CESSATION, (Reported) Allergies Coded Allergies: RUBBER (Verified Allergy, Intermediate, 12/31/19) Mushroom (Verified Allergy, Unknown, 12/31/19) Penicillins (Verified Allergy, Unknown, 12/31/19) Sulfa (Sulfonamide Antibiotics) (Verified Allergy, Unknown, 12/31/19) TURKEY (Verified Allergy, Unknown, 12/31/19) emtricitabine (Verified Allergy, Unknown, 12/31/19) latex (Verified Allergy, Unknown, 12/31/19) raltegravir (Verified Allergy, Unknown, 12/31/19) sulfamethoxazole (Verified Allergy, Unknown, 12/31/19) tomato (Verified Allergy, Unknown, 12/31/19) trimethoprim (Verified Allergy, Unknown, 12/31/19) Problems (1) Adjustment disorder Response to Treatment: Stable (2) Borderline personality disorder in adult Status: Chronic Response to Treatment: Stable Plan / VTE VTE Prophylaxis Ordered?: PHYLLIS Dwyer DO Feb 06, 2020 10:45
[2020-02-06] MEDS ORDERED: HALO10TA20 PO (10:48)
[2020-02-06] MEDS: hydrOXYzine 50 MG TAB PO PRN (12:04)
--- NOTE | 2020-02-06 15:17 | MHIPN ---
DATE OF SERVICE: 02/05/2020 The current visit is done via telepsychiatry due to the current Coronavirus crisis. Today, the patient again tells me that she is doing really good. However, the staff advised me that last night the patient was still stating that she was hearing voices telling her to kill herself. I advised the patient of this, indicated that I do not she is stable yet for discharge and of course she became upset. MENTAL STATUS EXAMINATION: She is alert and oriented times three. Eye contact is fairly good. There is no formal thought disorder noted. She continues to have command auditory hallucinations to hurt herself. She is denying any suicidal or homicidal thought. Concentration is fair. Memory is intact. Insight and judgment is fair. DIAGNOSES: Major depressive disorder, recurrent, unspecified. Borderline personality disorder, unspecified. Intellectual disability. Posttraumatic stress disorder. TREATMENT PLAN: At this point, we will continue to monitor the patient for continued elevation and stabilization of her mood. I did increase her Haldol yesterday to 5 in the morning and 10 mg at night.
[2020-02-06] MEDS ORDERED: NAPR-837 PO (19:13)
[2020-02-06] MEDS ORDERED: TESS100C PO (19:13)
[2020-02-08] MEDS ORDERED: D31000TA2 PO (11:50)
[2020-02-19] MEDS ORDERED: QUET50TA3 PO (16:21)
[2020-04-02] MEDS ORDERED: QUET50TA3 PO (03:03)
[2020-04-10] MEDS ORDERED: PHEN1TAB73 PO (14:53)
[2020-04-14] MEDS ORDERED: CLIN150C15 PO (22:17)
== END 2020-02-06 13:18 | disposition home or self-care (01) | DRG 755 ==
LOC: M ED 11:03 → M ED INP 16:09 → M PSY 18:27
PROVIDERS: ADMIT Psychiatry & Neurology Addiction Medicine; ATTEND Psychiatry & Neurology Addiction Medicine
DX: F43.20 Adjustment disorder, unspecified (principal); F60.3 Borderline personality disorder; F79 Unspecified intellectual disabilities; F43.12 Post-traumatic stress disorder, chronic; Z59.0 Homelessness; Z79.84 Long term (current) use of oral hypoglycemic drugs; Z79.899 Other long term (current) drug therapy; Z88.0 Allergy status to penicillin; Z88.2 Allergy status to sulfonamides; Z88.8 Allergy status to other drugs, medicaments and biological substances; Z91.018 Allergy to other foods; Z91.040 Latex allergy status; E66.01 Morbid (severe) obesity due to excess calories; E28.2 Polycystic ovarian syndrome; I10 Essential (primary) hypertension; J45.909 Unspecified asthma, uncomplicated; E78.5 Hyperlipidemia, unspecified; Z68.33 Body mass index [BMI] 33.0-33.9, adult

== ENCOUNTER 2020-02-06 17:52 | Emergency (ER) | payer OTHER ==
[~2020-02-06] VITALS: Ht 167.6 cm; Wt 150.0 kg
[2020-02-06 17:52] VITALS: BP 133/77
[~2020-02-06 17:52] MED LIST changes: +ALL10TAB29 PO; -CETI-24 PO; +CLIN150C14 PO; -CLIN150C15 PO; +DOXY100T2 PO; -ESCI10TA16 PO; +ESCI10TA2 PO; -GABA-282 PO; +GABA-843 PO; +HALO10TA20 PO; -IBUP1TAB5 PO; +IBUP40TA PO; -METH-1165 PO; +METH750T2 PO; -MIRT-62 PO; +NEOM28.3 TOP; -NICO1DIS12 TD; +NICO21DI31 TD; +REME15TA PO; +VENL75CA2 PO
[2020-02-06] MEDS ORDERED: NAPROXEN 250 MG TAB PO ONE (18:45)
[2020-02-06] MEDS ORDERED: BENZONATATE 100 MG CAP PO ONE (18:45)
[2020-02-06] MEDS ORDERED: TESS100C PO (19:13)
[2020-02-06] MEDS ORDERED: NAPR-837 PO (19:13)
--- NOTE | 2020-02-07 01:38 | REP ---
CHEST, TWO VIEWS: There is no evidence of acute infiltrate. No pleural effusion is seen. The heart is normal in size. The mediastinal silhouette is unremarkable. The visualized osseous structures are intact. IMPRESSION: No acute pulmonary disease. Electronically Signed by Tapan Hicks MD 02/07/2020 09:53 A
== END 2020-02-06 19:30 | disposition home or self-care (01) ==
LOC: M ED 17:52
DX: R07.89 Other chest pain (principal); R05 Cough; I10 Essential (primary) hypertension; J45.909 Unspecified asthma, uncomplicated; E28.2 Polycystic ovarian syndrome; F17.200 Nicotine dependence, unspecified, uncomplicated; G43.909 Migraine, unspecified, not intractable, without status migrainosus; E78.00 Pure hypercholesterolemia, unspecified; K21.9 Gastro-esophageal reflux disease without esophagitis; R73.03 Prediabetes; F43.10 Post-traumatic stress disorder, unspecified; F41.9 Anxiety disorder, unspecified; F31.9 Bipolar disorder, unspecified; F25.9 Schizoaffective disorder, unspecified; F60.3 Borderline personality disorder; Z88.0 Allergy status to penicillin; Z88.2 Allergy status to sulfonamides; Z88.8 Allergy status to other drugs, medicaments and biological substances; Z91.018 Allergy to other foods; Z91.040 Latex allergy status; Z79.899 Other long term (current) drug therapy

== ENCOUNTER 2020-02-07 11:39 | Inpatient (IN) | payer OTHER ==
[~2020-02-07] VITALS: Ht 167.6 cm; Wt 150.2 kg
[~2020-02-07 11:39] MED LIST changes: +TESS100C PO
[2020-02-07 12:30] LABS: HEMATOCRIT 37.2 % (36.0-47.0); HEMOGLOBIN 11.7 g/dl (12.0-15.5); MEAN CORPUSCULAR HEMOGLOBIN 27.6 pg (27.0-33.0); MEAN CORPUSCULAR HGB CONC 31.5 g/dl (32.0-36.5); MEAN CORPUSCULAR VOLUME 87.7 fl (80.0-96.0); PLATELET COUNT, AUTOMATED 166 10^3/uL (150-450); RED BLOOD COUNT 4.24 10^6/uL (4.00-5.40); WHITE BLOOD COUNT 6.8 10^3/uL (4.0-10.0)
[2020-02-07] MEDS ORDERED: NS 1,000 ML IV ONE (12:45)
[2020-02-07] MEDS ORDERED: CHARCOAL ACTIVATED LIQUID 25 GM/120 ML BTL PO ONE (12:45)
[2020-02-07 12:52] LABS: AMPHETAMINES LEVEL URINE NEGATIVE (NEGATIVE); BARBITURATES URINE NEGATIVE (NEGATIVE); BENZODIAZEPINES URINE NEGATIVE (NEGATIVE); CANNABINOIDS URINE NEGATIVE (NEGATIVE); COCAINE METABOLITE URINE NEGATIVE (NEGATIVE); METHADONE URINE NEGATIVE (NEGATIVE); OPIATES URINE NEGATIVE (NEGATIVE); PHENCYCLIDINE URINE NEGATIVE (NEGATIVE)
[2020-02-07 13:10] LABS: HCG, SERUM QUALITATIVE NEGATIVE (NEGATIVE)
[2020-02-07 13:31] LABS: ACETAMINOPHEN LEVEL < 2.0 UG/ML (10.0-30.0); ALBUMIN 3.4 GM/DL (3.2-5.2); ALT/SGPT 35 U/L (12-78); BILIRUBIN,DIRECT < 0.1 MG/DL (0.0-0.2); BILIRUBIN,TOTAL 0.2 MG/DL (0.2-1.0); BLOOD UREA NITROGEN 10 MG/DL (7-18); CALCIUM LEVEL 8.6 MG/DL (8.5-10.1); CARBON DIOXIDE LEVEL 24 MEQ/L (21-32); CHLORIDE LEVEL 108 MEQ/L (98-107); CREATININE FOR GFR 0.68 MG/DL (0.55-1.30); ETHYL ALCOHOL (ETHANOL) 0.003 % (0.000-0.010); GLOMERULAR FILTRATION RATE > 60.0 (>60); GLUCOSE, FASTING 112 MG/DL (70-100); POTASSIUM SERUM 4.3 MEQ/L (3.5-5.1); SALICYLATE LEVEL < 1.7 MG/DL (5.0-30.0); SODIUM LEVEL 141 MEQ/L (136-145); TOTAL PROTEIN 6.7 GM/DL (6.4-8.2)
[2020-02-07 18:50] LABS: ACETAMINOPHEN LEVEL < 2.0 UG/ML (10.0-30.0); SALICYLATE LEVEL < 1.7 MG/DL (5.0-30.0)
--- NOTE | 2020-02-07 21:22 | ECGEPIP ---
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
--- NOTE | 2020-02-07 21:43 | ECGEPIP ---
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
[2020-02-08] MEDS ORDERED: DOXYCYCLINE HYCLATE 100MG TABLET PO ONE (09:00)
[2020-02-08] MEDS ORDERED: haloperidoL 5 MG TAB PO ONE ×2 (09:00→18:00)
[2020-02-08] MEDS ORDERED: metFORMIN (GLUCOPHAGE) 500 MG TAB PO ONE (09:00)
[2020-02-08] MEDS ORDERED: NAPR-885 PO (11:49)
[2020-02-08] MEDS ORDERED: HALO10TA20 PO (11:49)
[2020-02-08] MEDS ORDERED: TESS100C PO (11:49)
[2020-02-08] MEDS ORDERED: CYAN100049 PO (11:50)
[2020-02-08] MEDS ORDERED: VITAD1000T PO (11:50)
[2020-02-08] MEDS ORDERED: MAALOX 30 ML SUSP *UDC PO PRN (14:30)
[2020-02-08] MEDS ORDERED: MOM 30ML SUSPENSION UDC PO PRN (14:30)
[2020-02-08 15:49] VITALS: BP 134/80
[2020-02-08] MEDS: VENLAFAXINE **XR** 75MG CAPSULE PO SCH (16:01)
[2020-02-08] MEDS: SUCRALFATE 1 GM TAB PO SCH ×2 (17:05→21:22)
[2020-02-08] MEDS: metFORMIN (GLUCOPHAGE) 500 MG TAB PO SCH (17:05)
[2020-02-08] MEDS: IBUPROFEN 600MG TAB PO PRN (18:06)
[2020-02-08] MEDS: CYCLOBENZAPRINE 10MG TABLET PO SCH (21:23)
[2020-02-08] MEDS: MIRTAZAPINE 15 MG TAB PO SCH (21:23)
[2020-02-08] MEDS: PRAZOSIN 1 MG CAP PO SCH (21:23)
[2020-02-08] MEDS: traZODone 50 MG TAB PO SCH (21:23)
[2020-02-09 06:22] VITALS: BP 136/66
[2020-02-09] MEDS: SUCRALFATE 1 GM TAB PO SCH ×4 (06:58→20:01)
[2020-02-09] MEDS: metFORMIN (GLUCOPHAGE) 500 MG TAB PO SCH ×3 (07:16→17:04)
[2020-02-09] MEDS: IBUPROFEN 600MG TAB PO PRN ×2 (08:04→19:27)
[2020-02-09] MEDS: CETIRIZINE (ZyrTEC) 10 MG TAB PO SCH (08:04)
[2020-02-09] MEDS: VENLAFAXINE **XR** 75MG CAPSULE PO SCH (08:04)
[2020-02-09] MEDS: CYCLOBENZAPRINE 10MG TABLET PO SCH ×2 (08:04→20:02)
[2020-02-09] MEDS: haloperidoL 5 MG TAB PO SCH (08:04)
[2020-02-09] MEDS: BENZTROPINE 2 MG TAB PO SCH (09:16)
[2020-02-09] MEDS: MONTELUKAST 10 MG TAB PO SCH (12:03)
--- NOTE | 2020-02-09 14:56 | HPE ---
DATE OF ADMISSION: 02/09/2020 CHIEF COMPLAINT: Admitted for depression. HISTORY OF PRESENTING ILLNESS: A 19-year-old female admitted for depression with a history of morbid obesity, body mass index (BMI) of 33.8, depression, polycystic ovary syndrome (PCOS) and hypertension, has no complaints aside from some rhinorrhea. Chest x-ray was negative for pneumonia. No fever, chills or shortness of breath. Requesting Tessalon Perles. Patient denies any chest pain, pressure, tightness, lightheadedness or dizziness. No insomnia or hypersomnia. No nausea, diarrhea, abdominal pain. Denies any dysuria, urgency frequency. No other acute medical issues. PAST MEDICAL HISTORY: Depression. Post-traumatic stress disorder (PTSD). Asthma. Borderline personality. PCOS. Morbid obesity. PAST SURGICAL HISTORY: Appendectomy. Tonsillectomy. Left oophorectomy. Adenoidectomy. FAMILY HISTORY: Hypercholesterolemia, diabetes. No history of CVA or coronary artery disease. SOCIAL HISTORY: Smokes 4-5 cigarettes daily. No alcohol use. No recreational drug use. REVIEW OF SYSTEMS: Per history of the present illness. 12-point system otherwise negative. PHYSICAL EXAM: Temperature 97.8, pulse 78, respiratory rate 18, blood pressure 138/65, 98% on room air. Generally, patient is awake, alert, oriented to person, place and time, answering questions appropriately. Morbid obesity. Thick neck. Moist mucous membranes. Disheveled appearing. Lungs are clear to auscultation. No wheezing, rales or rhonchi. Heart: S1, S2, sinus rhythm. Abdomen is obese, soft, nontender, nondistended. Extremities: No cyanosis or clubbing. 02/07/2020 CBC, metabolic panel, TSH and hCG have all been reviewed. ASSESSMENT AND PLAN: This is a 19-year-old with a history of PTSD, depression, morbid obesity, asthma, borderline personality, PCOS, hypertension, admitted to the inpatient mental health unit due to severe depression with no acute medical issues but requesting Tessalon Perles for occasional cough. Chest x-ray negative for pneumonia. IMPRESSION: 1. Depression, PTSD. Managed by psychiatrist. 2. Rhinitis. Currently on Zyrtec, Singulair. 3. Obesity. BMI of 33.8, outpatient followup for sleep study, complicating care. 4. Hypertension. Not requiring blood pressure medications. 5. PCOS. On chronic metformin. MTDD
[2020-02-09] MEDS: BENZONATATE 100 MG CAP PO SCH ×2 (15:39→20:03)
[2020-02-09 16:57] VITALS: BP 116/66
[2020-02-09] MEDS: PRAZOSIN 1 MG CAP PO SCH (20:02)
[2020-02-09] MEDS: MIRTAZAPINE 15 MG TAB PO SCH (20:02)
[2020-02-09] MEDS: traZODone 50 MG TAB PO SCH (20:03)
[2020-02-10] MEDS: SUCRALFATE 1 GM TAB PO SCH ×4 (06:23→20:05)
[2020-02-10 06:27] VITALS: BP 116/61
[2020-02-10] MEDS: metFORMIN (GLUCOPHAGE) 500 MG TAB PO SCH ×3 (07:40→17:15)
[2020-02-10] MEDS: haloperidoL 5 MG TAB PO SCH (08:09)
[2020-02-10] MEDS: CETIRIZINE (ZyrTEC) 10 MG TAB PO SCH (08:09)
[2020-02-10] MEDS: CYCLOBENZAPRINE 10MG TABLET PO SCH ×2 (08:09→20:05)
[2020-02-10] MEDS: MONTELUKAST 10 MG TAB PO SCH (08:09)
[2020-02-10] MEDS: VENLAFAXINE **XR** 75MG CAPSULE PO SCH (08:09)
[2020-02-10] MEDS: BENZTROPINE 2 MG TAB PO SCH (08:10)
[2020-02-10] MEDS: BENZONATATE 100 MG CAP PO SCH ×3 (08:10→20:05)
[2020-02-10] MEDS ORDERED: NICOTINE 14 MG/24 HR TRANSDERMAL TD PRN (09:00)
--- NOTE | 2020-02-10 10:35 | IPNPDOC ---
Text Note Date of Service The patient was seen on 02/10/20. NOTE HPI: 19-year-old W admitted for depression with a history of morbid obesity, body mass index (BMI) of 33.8, depression, PCOS, chronic migraines and hypertension who was admitted for severe depression, for whom medicine is reconsulted for a migraine headache with nausea reporting that zofran never works for her. PAST MEDICAL HISTORY: Depression. Post-traumatic stress disorder (PTSD). Asthma. Borderline personality. PCOS. Morbid obesity. PAST SURGICAL HISTORY: Appendectomy. Tonsillectomy. Left oophorectomy. Adenoidectomy. FAMILY HISTORY: Hypercholesterolemia, diabetes. No history of CVA or coronary artery disease. SOCIAL HISTORY: Smokes 4-5 cigarettes daily. No alcohol use. No recreational drug use. REVIEW OF SYSTEMS: Per HPI. otherwise 12-point system negative. PHYSICAL EXAM: HDS, afebrile Genera: Morbid obesity, NAD, conversational HEENT: NCAT, no temporal tenderness to palpation, PERRLA, EOMI, no eye discharge, MMM Neck: Thick, no adenopathy Lungs: clear to auscultation. No wheezing, rales or rhonchi. Heart: S1, S2, sinus rhythm. Abdomen : obese, soft, nontender, nondistended. Extremities: WWP, no edema 02/09/2020 UA was with 1+ bacteria but otherwise bland ASSESSMENT: 19-year-old W admitted for depression with a history of morbid obesity, body ma ss index (BMI) of 33.8, depression, PCOS, chronic migraines and hypertension who was admitted for severe depression, for whom medicine is reconsulted for a migraine headache with nausea reporting that zofran never works for her. Also to note, she reported some dysuria and had a UA last evening that was bland except for 1+ bacteria with no nitrites, leuk esterase and no wbcs and rbcs. IMPRESSION: 1. Depression, PTSD. Managed by psychiatrist. 2. Rhinitis. Currently on Zyrtec, Singulair. 3. Obesity. BMI of 33.8, outpatient followup for sleep study, complicating care. 4. Hypertension. Not requiring blood pressure medications. 5. PCOS. On chronic metformin. 6. Chronic migraines: continue prn ibuprofen and add PRN reglan 7. Dysuria: no evidence of active UTI at this time, encourage hydration. VS,Aston, I+O VS, Fishbone, I+O Vital Signs Date Time Temp Pulse Resp B/P (MAP) Pulse Ox O2 Delivery O2 Flow Rate FiO2 02/10/20 06:27 98.1 68 18 116/61 (79) 02/08/20 15:28 98 Room Air ALEXANDRA JENSEN MD Feb 10, 2020 10:35
[2020-02-10] MEDS ORDERED: PHENAZOPYRIDINE 100 MG TAB PO ONE (12:00)
[2020-02-10] MEDS: METOCLOPRAMIDE 10 MG TAB PO PRN (16:18)
[2020-02-10 16:21] VITALS: BP 130/67
[2020-02-10] MEDS: IBUPROFEN 600MG TAB PO PRN (20:05)
[2020-02-10] MEDS: traZODone 50 MG TAB PO SCH (20:05)
[2020-02-10] MEDS: MIRTAZAPINE 15 MG TAB PO SCH (20:05)
[2020-02-10] MEDS: PRAZOSIN 1 MG CAP PO SCH (20:05)
--- NOTE | 2020-02-10 21:36 | MHHPE ---
DATE OF ADMISSION: 02/09/2020 This is a video assessment. Being done because of the virus pandemic. She is aware of it and agrees to it. She is seen in the presence of staff. CHIEF COMPLAINT: Feels tired. SUBJECTIVE: She is 19 years old. Has a history of considerable psychiatric difficulties, various diagnoses, including posttraumatic stress disorder, major depressive disorder, borderline personality disorder, questions regarding intellect. Has been admitted on several occasions and was discharged just a few days ago. Was here from January 30 to February 05. Please refer to Dr. Silver's discharge summary for details related to the reasons for hospitalization, her course in hospital, and discharge. She was discharged on various medications, which included benztropine 2 mg daily, cetirizine 10 mg daily, cyclobenzaprine 10 mg twice a day, haloperidol 15 mg daily. Was also on metformin, prazosin, sucralfate, trazodone, and venlafaxine at 225 mg daily. She has been re-admitted, and she does not provide much history. Most of it is obtained from the emergency room (ER) record, but she suggests had been feeling distressed and had taken more than 50 pills of hydroxyzine. She called the crisis hotline and then the police. She had informed him that she was hearing voices. Says voices had been intense, and they asked her to take an overdose. She had not spent any substantial period outside the hospital. Apparently stays with her mother locally. PAST PSYCHIATRIC HISTORY AND BACKGROUND HISTORY: Please refer to previously dictated summaries. MENTAL STATUS EXAMINATION: A bit unkempt. Is guarded. Seen in the presence of staff. Currently no agitation. No psychomotor retardation but answers questions very briefly coherent with a restricted affect. Says has suicidal thoughts. No particular plans. She indicates she hears voices. Does not appear to be internally preoccupied. She is alert and oriented. Judgment and insight are poor. INVESTIGATIONS: Laboratory values show complete blood count essentially within normal limits except for hemoglobin at 11.7. A comprehensive metabolic profile essentially within normal limits except for chloride 108. Glucose 112. Urine toxicology essentially negative. ASSESSMENT: 1. Posttraumatic stress disorder by history 2. Major depressive disorder. 3. Intellectual disability. 4. Borderline personality disorder. PLAN: She is admitted to inpatient psychiatry unit, placed on relevant precautions. We will resume her previous medication regimen in essence. We will look at obtaining collateral information, engage her in treatment here as best as possible, and she will be discharged to followup when she is stable. Given frequent hospitalizations, in ability to maintain herself as an outpatient, may need to consider long-term care. Further recommendations will be made depending on the clinical picture. VITAL SIGNS: Blood pressure 136/66, pulse 71, temperature 97.7.
[2020-02-11 06:14] VITALS: BP 103/50
[2020-02-11] MEDS: SUCRALFATE 1 GM TAB PO SCH ×4 (06:57→20:12)
[2020-02-11] MEDS: haloperidoL 5 MG TAB PO SCH (08:06)
[2020-02-11] MEDS: CETIRIZINE (ZyrTEC) 10 MG TAB PO SCH (08:06)
[2020-02-11] MEDS: metFORMIN (GLUCOPHAGE) 500 MG TAB PO SCH ×3 (08:06→17:01)
[2020-02-11] MEDS: CYCLOBENZAPRINE 10MG TABLET PO SCH ×2 (08:07→20:12)
[2020-02-11] MEDS: MONTELUKAST 10 MG TAB PO SCH (08:07)
[2020-02-11] MEDS: VENLAFAXINE **XR** 75MG CAPSULE PO SCH (08:07)
[2020-02-11] MEDS: BENZTROPINE 2 MG TAB PO SCH (08:07)
--- NOTE | 2020-02-11 08:15 | MHIPN ---
DATE: 02/10/2020 VITAL SIGNS: Blood pressure 130/67. Pulse 77. Temperature 98.7. She is see in the presence of staff, this is a video assessment that is being done because of the virus pandemic. CHIEF COMPLAINT: Says feels better. SUBJECTIVE: Seen for followup, in the presence of staff. Says feels better, and that she has rested, had a good night's sleep, moods are better. Her appetite is good. MENTAL STATUS EXAMINATION: She is cooperative, neater than yesterday. Appears more relaxed. She is coherent. Affect broader. Denies any thoughts of harming herself or anyone else. She is alert and oriented. Judgment and insight remain compromised. ASSESSMENT: Major depressive disorder. Post traumatic stress disorder. Intellectual disability. Feels better today, we will continue with current care, and observations. Encourage her to participate in activities on the unit. Should such improvement continue, consider discharge within the next short while.
[2020-02-11] MEDS: BENZONATATE 100 MG CAP PO SCH ×3 (08:28→20:13)
[2020-02-11 16:04] VITALS: BP 135/80
[2020-02-11] MEDS ORDERED: LORazepam 1 MG TAB PO ONE (18:00)
[2020-02-11] MEDS: IBUPROFEN 600MG TAB PO PRN (18:06)
[2020-02-11] MEDS: traZODone 50 MG TAB PO SCH (20:09)
[2020-02-11 20:12] VITALS: BP 130/64
[2020-02-11] MEDS: PRAZOSIN 1 MG CAP PO SCH (20:12)
[2020-02-11] MEDS: METOCLOPRAMIDE 10 MG TAB PO PRN (20:12)
[2020-02-11] MEDS: MIRTAZAPINE 15 MG TAB PO SCH (20:12)
--- NOTE | 2020-02-11 21:40 | MHIPNPDOC ---
[facility] Progress Note Progress Note DATE OF SERVICE: 02/11/20 Bernice is a 19-year-old who was admitted to our inpatient unit on 08 February and has now been on the unit for 2 days She is here because of severe mood swings and depression--she has had numerous psychiatric hospitalizations in the past Her current medications include Haldol 10 mg at night Remeron 15 mg at night Prazosin 3 mg at night Trazodone 50 mg at night Today when I met with her she primarily was insisting on discharge so she could go with her mother to [place]--- she had a difficult time understanding that a discharge plan must be thoroughly constructed by the treatment team and although discharge was conceivable it was not feasible without thorough discussion with the treatment team We told her that we will it make an effort to contact her stepmother and work out a specific discharge plan The changes in medication were decided upon In the past she's had diagnoses of major depressive disorder, PTSD, and borderline personality disorder along with below-average IQ She will remain on the current medication and be reevaluated tomorrow with possible discharge as soon as plans are made specific MENTAL STATUS EXAM Level of consciousness--patient was alert and oriented to time place person Appearance-normal posture, normal dress, no prominent physical abnormalities, alert, cooperative Behavior--like to good, no psychomotor agitation or retardation, no abnormal movements, no tremor Speech--normal rate and rhythm--normal volume Mood--euthymic Affect--normal range and consistent with mood--stable Thought processes--logical and linear , goal directed and coherent--no thought blocking or flight of ideas, no loose associations, no tangential thinking, no word salad, no thought blocking, no circumstantiality Thought content--no ideas of reference no auditory or visual hallucinations, no delusional thinking, no thoughts of derealization or depersonalization, no obses sive thinking, no expressed phobias, Cognition--patient was alert and able to focus-sustained appropriate mental attention-memory immediate and short-term memory intact-abstract thinking present, Insight---fair Judgment or the ability to anticipate consequences of behavior intact Patient denied any suicidal ideation or impulses Patient denied any homicidal impulses or ideation I spent 20 minutes Vital Signs Vital Signs Date Time Temp Pulse Resp B/P (MAP) Pulse Ox O2 Delivery O2 Flow Rate FiO2 02/11/20 20:12 130/64 6/29/20 16:04 98.6 103 18 02/11/20 06:14 97 Room Air Current Medications Current Medications Medications (Trade) Dose Ordered Sig/Susy Route PRN Reason Start Time Stop Time Status Last Admin Dose Admin Al Hydrox/Mg Hydrox/Simethicone (Mylanta) 30 ml Q4HP PRN PO HEARTBURN/INDIGESTION 02/08/20 14:30 Benzonatate (Tessalon Perles) 200 mg TID PO 02/09/20 16:00 02/11/20 20:13 Benztropine Mesylate (Cogentin) 2 mg DAILY PO 02/09/20 09:00 02/11/20 08:07 Cetirizine HCl (ZyrTEC) 10 mg DAILY PO 02/09/20 09:00 02/11/20 08:06 Cyclobenzaprine HCl (Flexeril) 10 mg BID PO 02/08/20 21:00 02/11/20 20:12 Haloperidol (Haldol) 5 mg DAILY PO 02/09/20 09:00 02/11/20 08:06 Haloperidol (Haldol) 10 mg QHS PO 02/09/20 21:00 02/11/20 20:08 Home Med (Med Rec Complete!) ASDIRECTED XX 02/08/20 12:00 02/08/20 11:52 DC Ibuprofen (Advil) 600 mg TID PRN PO PAIN 02/08/20 14:30 02/11/20 18:06 Magnesium Hydroxide (Milk Of Magnesia) 30 ml DAILYPRN PRN PO CONSTIPATION 02/08/20 14:30 Metformin HCl (Glucophage) 500 mg WM PO 02/08/20 18:00 02/11/20 17:01 Metoclopramide HCl (Reglan) 10 mg Q6HP PRN PO NAUSEA OR VOMITING 02/10/20 10:30 02/11/20 20:12 Mirtazapine (Remeron) 15 mg QHS PO 02/08/20 21:00 02/11/20 20:12 Montelukast Sodium (Singulair) 10 mg DAILY PO 02/09/20 09:00 02/11/20 08:07 Nicotine (Nicoderm Cq 14mg) 1 patch DAILYPRN PRN TD NICOTINE WITHDRAWAL 02/10/20 09:00 Prazosin HCl (Minipress) 3 mg QHS PO 02/08/20 21:00 02/11/20 20:12 Sucralfate (Carafate) 1 gm ACHS PO 02/08/20 17:30 02/11/20 20:12 Trazodone HCl (Desyrel) 50 mg QHS PO 02/08/20 21:00 02/11/20 20:09 Venlafaxine HCl (Effexor Xr) 225 mg DAILY PO 02/08/20 09:00 02/11/20 08:07 Allergies Coded Allergies: RUBBER (Verified Allergy, Intermediate, 12/31/19) Mushroom (Verified Allergy, Unknown, 12/31/19) Penicillins (Verified Allergy, Unknown, 12/31/19) Sulfa (Sulfonamide Antibiotics) (Verified Allergy, Unknown, 12/31/19) TURKEY (Verified Allergy, Unknown, 12/31/19) emtricitabine (Verified Allergy, Unknown, 12/31/19) latex (Verified Allergy, Unknown, 12/31/19) raltegravir (Verified Allergy, Unknown, 12/31/19) sulfamethoxazole (Verified Allergy, Unknown, 12/31/19) tomato (Verified Allergy, Unknown, 12/31/19) trimethoprim (Verified Allergy, Unknown, 12/31/19) Harsha Almanza MD Feb 11, 2020 21:40
[2020-02-12 06:18] VITALS: BP 123/55
[2020-02-12] MEDS: SUCRALFATE 1 GM TAB PO SCH ×2 (06:44→12:23)
[2020-02-12] MEDS: metFORMIN (GLUCOPHAGE) 500 MG TAB PO SCH ×2 (08:37→12:23)
[2020-02-12] MEDS: CYCLOBENZAPRINE 10MG TABLET PO SCH (08:37)
[2020-02-12] MEDS: BENZONATATE 100 MG CAP PO SCH ×2 (08:37→16:00)
[2020-02-12] MEDS: MONTELUKAST 10 MG TAB PO SCH (08:37)
[2020-02-12] MEDS: haloperidoL 5 MG TAB PO SCH (08:38)
[2020-02-12] MEDS: BENZTROPINE 2 MG TAB PO SCH (08:38)
[2020-02-12] MEDS: CETIRIZINE (ZyrTEC) 10 MG TAB PO SCH (08:38)
[2020-02-12] MEDS: VENLAFAXINE **XR** 75MG CAPSULE PO SCH (08:38)
[2020-02-12] MEDS: IBUPROFEN 600MG TAB PO PRN (10:47)
[2020-02-12] MEDS: METOCLOPRAMIDE 10 MG TAB PO PRN (10:47)
--- NOTE | 2020-02-12 13:19 | MHDSPDOC ---
[facility] Discharge Summary Discharge Summary Discharge summary Date admissions February 09 2020 Date of discharge February 12, 2020 Bernice is a 19-year-old who was admitted and treated on our inpatient adult psychiatric unit for 4 days--she was admitted with the initial diagnosis of a posttraumatic stress disorder Admitting diagnoses Posttraumatic stress disorder Alex. depressive disorder Intellectual disability Borderline personality disorder Chief complaint on admission was depression and fatigue--noted in the present illness was the fact that she has a long history of psychiatric illness with multiple hospitalizations Course in Hospital focused on treatment of her severe mood swings, depression, and impulsivity Discharge psychiatric medications were the following Haldol 10 mg at bedtime Cogentin 2 mg daily Haldol 5 mg in a.m. Remeron 15 mg at bedtime Prazosin 3 mg at bedtime Trazodone 50 mg at bedtime Condition was stable at the time of discharge Mental status at discharge MENTAL STATUS EXAM Level of consciousness--patient was alert and oriented to time place person Appearance-normal posture, normal dress, no prominent physical abnormalities, alert, cooperative Behavior--like to good, no psychomotor agitation or retardation, no abnormal mo vements, no tremor Speech--normal rate and rhythm--normal volume Mood--euthymic Affect--normal range and consistent with mood--stable Thought processes--logical and linear , goal directed and coherent--no thought blocking or flight of ideas, no loose associations, no tangential thinking, no word salad, no thought blocking, no circumstantiality Thought content--no ideas of reference no auditory or visual hallucinations, no delusional thinking, no thoughts of derealization or depersonalization, no obsessive thinking, no expressed phobias, Cognition--patient was alert and able to focus-sustained appropriate mental attention-memory immediate and short-term memory intact-abstract thinking present, Insight---fair Judgment or the ability to anticipate consequences of behavior intact Patient denied any suicidal ideation or impulses Patient denied any homicidal impulses or ideation Aftercare was arranged Medications were reconciled A safety contract was instructed at the time of discharge Emergency procedures were explained to the patient Time spent involving discharge process and contact the patient was 30 minutes Vital Signs/I&Os Vital Signs Date Time Temp Pulse Resp B/P (MAP) Pulse Ox O2 Delivery O2 Flow Rate FiO2 02/12/20 06:18 98.8 79 14 123/55 (79) 98 Room Air Medications Scheduled Benzonatate (Tessalon Perle) 100 Mg Capsule, 100 MG PO TID, (Reported) Benztropine Mesylate (Benztropine Mesylate) 2 Mg Tablet, 2 MG PO DAILY for , (Reported) Cetirizine HCl (Cetirizine HCl) 10 Mg Tablet, 10 MG PO DAILY, (Reported) Cholecalciferol (Vitamin D3) (Vitamin D3) 1,000 Unit Tablet, 1,000 UNITS PO DAILY, (Reported) Cyanocobalamin (Vitamin B-12) (Vitamin B-12) 1,000 Mcg Tablet, 1,000 MCG PO DAILY, (Reported) Cyclobenzaprine HCl (Cyclobenzaprine HCl) 10 Mg Tablet, 10 MG PO BID, (Reported) Haloperidol (Haloperidol) 5 Mg Tablet, 5 MG PO DAILY for , (Reported) Haloperidol (Haloperidol) 10 Mg Tablet, 10 MG PO QHS, (Reported) Metformin HCl (Metformin HCl) 500 Mg Tablet, 500 MG PO TID for , (Reported) Mirtazapine (Remeron) 15 Mg Tablet, 15 MG PO QHS, (Reported) Naproxen (Naproxen) 500 Mg Tablet, 500 MG PO BID, (Reported) Prazosin Hcl (Prazosin HCl) 1 Mg Capsule, 3 MG PO QHS for , (Reported) Sucralfate (Sucralfate) 1 Gm Tablet, 1 GRAM PO ACHS for , (Reported) Trazodone HCl (Trazodone HCl) 50 Mg Tablet, 50 MG PO QHS, (Reported) Venlafaxine HCl (Venlafaxine HCl ER) 75 Mg Cap.er.24h, 225 MG PO DAILY, (Reported) Scheduled PRN Ibuprofen (Ibuprofen) 600 Mg Tablet, 600 MG PO TID PRN for PAIN, (Reported) Allergies Coded Allergies: RUBBER (Verified Allergy, Intermediate, 12/31/19) Mushroom (Verified Allergy, Unknown, 12/31/19) Penicillins (Verified Allergy, Unknown, 12/31/19) Sulfa (Sulfonamide Antibiotics) (Verified Allergy, Unknown, 12/31/19) TURKEY (Verified Allergy, Unknown, 12/31/19) emtricitabine (Verified Allergy, Unknown, 12/31/19) latex (Verified Allergy, Unknown, 12/31/19) raltegravir (Verified Allergy, Unknown, 12/31/19) sulfamethoxazole (Verified Allergy, Unknown, 12/31/19) tomato (Verified Allergy, Unknown, 12/31/19) trimethoprim (Verified Allergy, Unknown, 12/31/19) Harsha Almanza MD Feb 12, 2020 13:19
[2020-02-13] MEDS ORDERED: DIMEELX PO ×2 (04:28→22:32)
[2020-02-13] MEDS ORDERED: CYAN100050 PO (22:34)
[2020-02-13] MEDS ORDERED: VITAD1000T PO (22:34)
== END 2020-02-12 15:30 | disposition home or self-care (01) | DRG 755 ==
LOC: M ED 11:39 → EDBD 11:39 → M ED INP 02-08 14:28 → M ED 02-08 15:33 → M PSY 02-08 15:35
PROVIDERS: ADMIT Psychiatry & Neurology Addiction Medicine; ATTEND Psychiatry & Neurology Addiction Medicine
DX: F43.10 Post-traumatic stress disorder, unspecified (principal); E66.01 Morbid (severe) obesity due to excess calories; I10 Essential (primary) hypertension; F79 Unspecified intellectual disabilities; F32.9 Major depressive disorder, single episode, unspecified; F60.3 Borderline personality disorder; Z79.899 Other long term (current) drug therapy; Z91.040 Latex allergy status; Z88.2 Allergy status to sulfonamides; Z88.0 Allergy status to penicillin; Z91.018 Allergy to other foods; J45.909 Unspecified asthma, uncomplicated; Z68.33 Body mass index [BMI] 33.0-33.9, adult; G43.909 Migraine, unspecified, not intractable, without status migrainosus; R30.0 Dysuria; E28.2 Polycystic ovarian syndrome

== ENCOUNTER 2020-02-13 03:18 | Emergency (ER) | payer OTHER ==
[~2020-02-13] VITALS: Ht 167.6 cm; Wt 93.6 kg
[~2020-02-13 03:18] MED LIST changes: +CYAN100049 PO; +NAPR-885 PO; +VITAD1000T PO
[2020-02-13] MEDS ORDERED: DIMEELX PO ×2 (04:28→22:32)
[2020-02-13 04:39] VITALS: BP 112/52
--- NOTE | 2020-02-13 08:21 | REP ---
Clinical: Cough . Comparison: 02/06/2020 . Findings: The mediastinum and cardiac silhouette are stable and within normal limits for portable technique. The lung crespo are clear without acute consolidation, effusion, or pneumothorax. Skeletal structures are intact. Impression: No acute cardiopulmonary process appreciated. Electronically Signed by Tj More MD 02/13/2020 08:13 A
[2020-02-13] MEDS ORDERED: VITAD1000T PO (22:34)
[2020-02-13] MEDS ORDERED: CYAN100050 PO (22:34)
== END 2020-02-13 04:40 | disposition home or self-care (01) ==
LOC: M ED 03:18
DX: R05 Cough (principal); F60.3 Borderline personality disorder; F17.200 Nicotine dependence, unspecified, uncomplicated; Z88.0 Allergy status to penicillin; Z88.2 Allergy status to sulfonamides; Z88.8 Allergy status to other drugs, medicaments and biological substances; Z88.1 Allergy status to other antibiotic agents; Z91.040 Latex allergy status; Z91.018 Allergy to other foods; Z79.899 Other long term (current) drug therapy; Z79.84 Long term (current) use of oral hypoglycemic drugs; Z79.1 Long term (current) use of non-steroidal anti-inflammatories (NSAID)

== ENCOUNTER 2020-02-13 14:04 | Inpatient (IN) | payer OTHER ==
[~2020-02-13] VITALS: Ht 167.6 cm; Wt 95.0 kg
[2020-02-13] MEDS: metFORMIN (GLUCOPHAGE) 500 MG TAB PO SCH (04:14)
[~2020-02-13 14:04] MED LIST changes: -ALL10TAB29 PO; +CETI-24 PO; +D31000TA2 PO; +DIMEELX PO; -VITAD1000T PO
[2020-02-13] MEDS ORDERED: NS 1,000 ML IV ONE (14:30)
[2020-02-13] MEDS ORDERED: CHARCOAL ACTIVATED LIQUID 25 GM/120 ML BTL PO ONE (14:30)
[2020-02-13 14:43] LABS: VENOUS BASE EXCESS -3.7 (-2.0-2.0); VENOUS PARTIAL PRESSURE CO2 36.9 mmHg (38.0-50.0); VENOUS PH 7.373 UNITS (7.330-7.430); VENOUS STANDARD HCO3 21.4 MEQ/L; VENOUS TOTAL CO2 22.1 MEQ/L (24.0-28.0)
[2020-02-13 14:51] LABS: BASO % 0.3 % (0.0-1.0); EOS # 0.3 10^3/uL (0.0-0.5); EOS % 4.1 % (0.0-3.0); HEMATOCRIT 36.7 % (36.0-47.0); HEMOGLOBIN 11.7 g/dl (12.0-15.5); LYMPH # 1.6 10^3/uL (1.5-5.0); LYMPH % 23.2 % (24.0-44.0); MEAN CORPUSCULAR HEMOGLOBIN 27.7 pg (27.0-33.0); MEAN CORPUSCULAR HGB CONC 31.9 g/dl (32.0-36.5); MONO # 0.7 10^3/uL (0.0-0.8); MONO % 10.6 % (0.0-5.0); NEUTROPHILS # 4.2 10^3/uL (1.5-8.5); NEUTROPHILS % 61.5 % (36.0-66.0); PLATELET COUNT, AUTOMATED 189 10^3/uL (150-450); RED BLOOD COUNT 4.22 10^6/uL (4.00-5.40); WHITE BLOOD COUNT 6.9 10^3/uL (4.0-10.0)
[2020-02-13 15:16] LABS: AMPHETAMINES LEVEL URINE NEGATIVE (NEGATIVE); BARBITURATES URINE NEGATIVE (NEGATIVE); BENZODIAZEPINES URINE NEGATIVE (NEGATIVE); CANNABINOIDS URINE NEGATIVE (NEGATIVE); COCAINE METABOLITE URINE NEGATIVE (NEGATIVE); METHADONE URINE NEGATIVE (NEGATIVE); OPIATES URINE NEGATIVE (NEGATIVE); PHENCYCLIDINE URINE NEGATIVE (NEGATIVE)
[2020-02-13 15:17] LABS: OSMOLALITY SERUM 285 MOSM/KG (275-295)
[2020-02-13 15:19] LABS: ALBUMIN 4.1 GM/DL (3.2-5.2); ALT/SGPT 28 U/L (12-78); BILIRUBIN,DIRECT < 0.1 MG/DL (0.0-0.2); BILIRUBIN,TOTAL 0.3 MG/DL (0.2-1.0); CPK CREATINE PHOSPHOKINASE 119 U/L (26-192)
[2020-02-13 16:02] LABS: HCG, SERUM QUALITATIVE NEGATIVE (NEGATIVE)
[2020-02-13 16:09] LABS: ACETAMINOPHEN LEVEL < 2.0 UG/ML (10.0-30.0); BLOOD UREA NITROGEN 6 MG/DL (7-18); CALCIUM LEVEL 8.4 MG/DL (8.5-10.1); CARBON DIOXIDE LEVEL 25 MEQ/L (21-32); CHLORIDE LEVEL 108 MEQ/L (98-107); CREATININE FOR GFR 0.75 MG/DL (0.55-1.30); ETHYL ALCOHOL (ETHANOL) 0.009 % (0.000-0.010); GLOMERULAR FILTRATION RATE > 60.0 (>60); GLUCOSE, FASTING 107 MG/DL (70-100); POTASSIUM SERUM 3.7 MEQ/L (3.5-5.1); SALICYLATE LEVEL < 1.7 MG/DL (5.0-30.0); SODIUM LEVEL 140 MEQ/L (136-145)
--- NOTE | 2020-02-13 16:36 | REP ---
Clinical: Drug overdose . Comparison: 02/13/2020 . Findings: The mediastinum and cardiac silhouette are stable and within normal limits for portable technique. The lung crespo are clear without acute consolidation, effusion, or pneumothorax. Skeletal structures are intact. Impression: No acute cardiopulmonary process appreciated. Electronically Signed by Tj More MD 02/13/2020 04:28 P
[2020-02-13] MEDS ORDERED: ONDANSETRON 4 MG ORAL DISINTEGRATING TAB PO ONE (17:00)
[2020-02-13] MEDS: BENZONATATE 100 MG CAP PO SCH (21:00)
[2020-02-13] MEDS: CYCLOBENZAPRINE 10MG TABLET PO SCH (21:00)
[2020-02-13] MEDS ORDERED: traZODone 50 MG TAB PO SCH (21:00)
[2020-02-13] MEDS ORDERED: MIRTAZAPINE 15 MG TAB PO SCH (21:00)
[2020-02-13] MEDS ORDERED: PRAZOSIN 1 MG CAP PO SCH (21:00)
[2020-02-13] MEDS ORDERED: DIMEELX PO (22:32)
[2020-02-13] MEDS ORDERED: D31000TA2 PO (22:34)
[2020-02-13] MEDS ORDERED: CYAN100050 PO (22:34)
[2020-02-14] MEDS ORDERED: METAL LOCK LOOP XX ONE (01:09)
[2020-02-14] MEDS ORDERED: MOM 30ML SUSPENSION UDC PO PRN (01:30)
[2020-02-14] MEDS ORDERED: NICOTINE 21MG/24HR 1 EA TRANSDERMAL TD PRN (01:30)
[2020-02-14 02:02] VITALS: BP 137/82
--- NOTE | 2020-02-14 06:22 | ECGEPIP ---
[facility] - ED Test Date: 2020-02-13 Pat Name: RAMYA MCCARTNEY Department: Room: - Gender: Female Director Money: : 2000 Requested By: PARTH Hutchinson Order Number: [id number] Reading MD: Jimi Meyer Measurements Intervals [place] Rate: 90 P: 15 MS: 129 QRS: 11 QRSD: 106 T: 14 QT: 359 QTc: 440 Interpretive Statements SINUS RHYTHM NSTTW ABNORMALITIES SIMILAR TO 02/07/20 Electronically Signed on 02-14-2020 6:22:34 EDT by Jimi Meyer
[2020-02-14] MEDS: SUCRALFATE 1 GM TAB PO SCH ×4 (06:50→20:15)
[2020-02-14] MEDS ORDERED: haloperidoL 5 MG TAB PO SCH (09:00)
[2020-02-14] MEDS: metFORMIN (GLUCOPHAGE) 500 MG TAB PO SCH ×3 (09:09→20:16)
[2020-02-14] MEDS: BENZONATATE 100 MG CAP PO SCH ×3 (09:09→20:15)
[2020-02-14] MEDS: VITAMIN D 1,000 INTERNATIONAL UNITS TABLET PO SCH (09:09)
[2020-02-14] MEDS: BENZTROPINE 2 MG TAB PO SCH (09:09)
[2020-02-14] MEDS: CETIRIZINE (ZyrTEC) 10 MG TAB PO SCH (09:09)
[2020-02-14] MEDS: CYCLOBENZAPRINE 10MG TABLET PO SCH ×2 (09:09→21:36)
[2020-02-14] MEDS: IBUPROFEN 600MG TAB PO PRN ×2 (12:05→20:18)
--- NOTE | 2020-02-14 12:52 | HPEPDOC ---
[facility] Medical History & Physical Date of Admission Feb 14, 2020 Date of Service: Feb 14, 2020 Attending Physician: Meghan Sanchez MD History and Physical HISTORY OF PRESENT ILLNESS: The patient is a 19-year-old female with past medical history of depression, PTSD, asthma, borderline personality disorder, PCO S, morbid obesity who was admitted on 03-03 after being brought in by police when she contacted them stating that she attempt to kill herself by ingesting venlafaxine and naproxen. Amount included one bottle for both. The patient has a history of auditory hallucinations and states that the voices in her head told her to overdose on these medications. She had had an argument with her [id number] which prompted her to this event she has had prior attempts of suicide by ingesting medications she admits. She also has a long history of psychiatric illness with numerous hospitalizations in the past. The patient was evaluated by myself on 02/14/2020 and states that she still once to kill herself but has known plan at this time. She admits to increased tearfulness, hopelessness and says that "nobody wants her around.". She admits to continuing to have auditory hallucinations that tell her commands. She denies any weight loss at home, visual hallucinations, episodes of increased anger, impulsivity, chest pain, shortness of breath, nausea, vomiting, fevers or chills. On further evaluation of the patient during physical exam, she mentions how she slipped in the shower this morning and rolled her ankle outwards. She currently has moderate pain 7 out of 10 of the left lateral foot and left side of the ankle. There appears to be some mild swelling but she is able to apply weight to that foot and ankle. Will order x-ray to rule out any additional abnormalities. PAST MEDICAL HISTORY: Depression. Post-traumatic stress disorder (PTSD). Asthma. Borderline personality. PCOS. Morbid obesity. PAST SURGICAL HISTORY: Appendectomy. Tonsillectomy. Left oophorectomy. Adenoidectomy. FAMILY HISTORY: Mother: Hyperlipidemia, hypertension, COPD, diabetes mellitus, depression. Alive. Father: Diabetes mellitus, hypertension, hyperlipidemia. Alive. SOCIAL HISTORY: Smokes 4-5 cigarettes daily. No alcohol use. No recreational drug use. Lives independently in the local area. Primary care provider is Devi Orr at [facility]. She is currently unemployed. ALLERGIES: Please see below. CURRENT MEDICATIONS: Please see below. PHYSICAL EXAMINATION: CONSTITUTIONAL: No acute distress, resting comfortably, AAO x 3 EYES: PERRLA, EOM intact HENT, MOUTH: Normocephalic, atraumatic, moist mucous membranes NECK: SUPPLE, no JVD, no lymphadenopathy, no carotid bruit CV: Regular rate and rhythm, S1S2 normal, no murmurs/rubs/gallops RESPIRATORY: Clear to auscultation bilaterally, no rales/rhonchi/wheezes GI: obese abdomen, BS positive in 4 quadrants, soft, nontender, nondistended, no rebound or guarding, no organomegaly : Deferred MUSCULOSKELETAL: Decreased ROM of left ankle, mild swelling with pain illicited with movement and with palpation. No bruising, erythema or trauma lesions. Normal ROM of all other joints. No cyanosis, clubbing, swelling, joint deformity, extremity edema INTEGUMENTARY: Intact, no rashes, no lesions, no erythema NEUROLOGIC: Cranial Nerves II-XII are intact, no focal deficits PSYCHIATRIC: Mood and affect are normal LABORATORY DATA: Please see below IMAGING: F/u XR of left ankle and foot ASSESSMENT: Patient is a 19 y/o F admitted for unspecified depressive disorder, suicidal attempt. PLAN: 1. Unspecified depressive disorder with suicide attempt. -Plan as per psychiatry team. 2. Left ankle/foot pain s/p fall. -unlikely broken as patient can apply all body weight on it still -F/u XR of left ankle, foot. -Ibuprofen PRN. 3. Post-traumatic stress disorder (PTSD)/Borderline personality disorder. -Plan as per psychiatry team 4. Asthma. -Stable 5. PCOS. -C/w home medications. 6. Morbid obesity -Recommend nutrition referral as outpatient. DISPOSITION: Will follow up on XR of left foot and left ankle later today. Other than this, there is no change in her chronic medical conditions. At this time will sign off and if anything needs to be addressed from XR of foot/ankle, will do so. Please feel free to call me to reassess at any time. Thank you. Vital Signs Vital Signs Date Time Temp Pulse Resp B/P (MAP) Pulse Ox O2 Delivery O2 Flow Rate FiO2 02/14/20 02:02 97.6 94 18 137/82 (100) 98 Room Air Laboratory Data Labs 24H Laboratory Tests 2 02/13/20 14:16: Immature Granulocyte % (Auto) 0.3, Neutrophils (%) (Auto) 61.5, Lymphocytes (%) (Auto) 23.2L, Monocytes (%) (Auto) 10.6H, Eosinophils (%) (Auto) 4.1H, Basophils (%) (Auto) 0.3, Neutrophils # (Auto) 4.2, Lymphocytes # (Auto) 1.6, Monocytes # (Auto) 0.7, Eosinophils # (Auto) 0.3, Basophils # (Auto) 0.0, Nucleated Red Blood Cells % (auto) 0.0, Osmolality 285, Lactic Acid Level 2.0, Total Bilirubin 0.3, Direct Bilirubin < 0.1, Aspartate Amino Transf (AST/SGOT) 20, Alanine Aminotransferase (ALT/SGPT) 28, Alkaline Phosphatase 93, Total Creatine Kinase 119, Total Protein 7.0, Albumin 4.1, Albumin/Globulin Ratio 1.4, Urine Opiates Screen NEGATIVE, Urine Methadone Screen NEGATIVE, Urine Barbiturates Screen NEGATIVE, Urine Phencyclidine Screen NEGATIVE, Urine Amphetamines Screen NEGATIVE, Urine Benzodiazepines Screen NEGATIVE, Urine Cocaine Metabolite Screen NEGATIVE, Urine Cannabinoids Screen NEGATIVE 02/13/20 14:32: Blood Gas Bicarbonate Standard 21.4, Venous Blood pH 7.373, Venous Blood Partial Pressure CO2 36.9L, Venous Blood Partial Pressure O2 131.0H, Venous Blood Total Carbon Dioxide 22.1L, Venous Blood HCO3 21.0L, Venous Blood Oxygen Saturation 99.0H, Venous Blood Base Excess -3.7L, Anion Gap 7L, Glomerular Filtration Rate > 60.0, Calcium Level 8.4L, Thyroid Stimulating Hormone (TSH) 1.560, Human Chorionic Gonadotropin, Qual NEGATIVE, Salicylates Level < 1.7L, Acetaminophen Level < 2.0L, Ethyl Alcohol Level 0.009 02/13/20 14:46: Bedside Glucose (Misc Panel) 106H 02/13/20 21:43: Lactic Acid Level 1.3 CBC/BMP Laboratory Tests 02/13/20 14:16 02/13/20 14:32 Microbiology Microbiology 02/13/20 Respiratory Virus Panel (PCR) ([facility]) - Final, Complete Home Medications Scheduled Benzonatate (Tessalon Perle) 100 Mg Capsule, 100 MG PO TID Benztropine Mesylate (Benztropine Mesylate) 2 Mg Tablet, 2 MG PO DAILY Cetirizine HCl (Cetirizine HCl) 10 Mg Tablet, 10 MG PO DAILY Cholecalciferol (Vitamin D3) (Vitamin D3) 1,000 Unit Tablet, 1,000 UNITS PO DAILY HAS NOT STARTED YET Cyanocobalamin (Vitamin B-12) (Vitamin B-12) 1,000 Mcg Tablet, 1,000 MCG PO DAILY HAS NOT STARTED YET Cyclobenzaprine HCl (Cyclobenzaprine HCl) 10 Mg Tablet, 10 MG PO BID Haloperidol (Haloperidol) 5 Mg Tablet, 5 MG PO DAILY Haloperidol (Haloperidol) 10 Mg Tablet, 10 MG PO QHS Metformin HCl (Metformin HCl) 500 Mg Tablet, 500 MG PO TID Mirtazapine (Remeron) 15 Mg Tablet, 15 MG PO QHS Naproxen (Naproxen) 500 Mg Tablet, 500 MG PO BID Prazosin Hcl (Prazosin HCl) 1 Mg Capsule, 3 MG PO QHS Sucralfate (Sucralfate) 1 Gm Tablet, 1 GRAM PO ACHS Trazodone HCl (Trazodone HCl) 50 Mg Tablet, 50 MG PO QHS Venlafaxine HCl (Venlafaxine HCl ER) 75 Mg Cap.er.24h, 225 MG PO DAILY Scheduled PRN Brompheniram/Phenylephrine/Dm (Dimetapp Cold-Cough Liquid) 118 Ml Solution, 5 ML PO TID PRN for COUGH HAS NOT STARTED YET Ibuprofen (Ibuprofen) 600 Mg Tablet, 600 MG PO TID PRN for PAIN Allergies Coded Allergies: Mushroom (Verified Allergy, Unknown, 02/13/20) Penicillins (Verified Allergy, Unknown, 02/13/20) Sulfa (Sulfonamide Antibiotics) (Verified Allergy, Unknown, 02/13/20) TURKEY (Verified Allergy, Unknown, 02/13/20) emtricitabine (Verified Allergy, Unknown, 02/13/20) latex (Verified Allergy, Unknown, 02/13/20) raltegravir (Verified Allergy, Unknown, 02/13/20) sulfamethoxazole (Verified Allergy, Unknown, 02/13/20) tomato (Verified Allergy, Unknown, 02/13/20) trimethoprim (Verified Allergy, Unknown, 02/13/20) A-FIB/CHADSVASC A-FIB History Current/History of A-Fib/PAF?: No Current PO Anticoag Therapy: No Age/Risk Factor Scoring CHADSVASC: CHADSVASC Response (Comments) Value Age Risk Factor Age < 65 years old 0 Gender Risk Factor Female 1 Hx of CHF No 0 Hx of HTN No 0 Hx of Stroke/TIA/or VTE No 0 Hx of Diabetes No 0 Hx of Vascular Disease No 0 Total 1 Treatment Treatment ordered: NONE Meghan Sanchez MD Feb 14, 2020 12:52
--- NOTE | 2020-02-14 15:15 | REP ---
Clinical: Trauma. Technique: AP and lateral views of the left ankle. Findings: Soft tissue swelling is appreciated. No acute fracture or dislocation. No subcutaneous emphysema or foreign body. Impression: Swelling. No fracture. Electronically Signed by Tj More MD 02/14/2020 03:07 P
--- NOTE | 2020-02-14 15:16 | REP ---
Clinical: Trauma. Pain. Technique: AP and lateral views of the left foot. Findings: Soft tissue swelling is appreciated. No obvious acute fracture dislocation. Subtle injury to the midfoot cannot definitively be excluded. If necessary consider complete examination including bilateral oblique views were definitive evaluation. Impression: Soft-tissue swelling. No definite acute fracture. As above. Electronically Signed by Tj More MD 02/14/2020 03:09 P
[2020-02-14 16:59] VITALS: BP 138/71
[2020-02-14] MEDS: MAALOX 30 ML SUSP *UDC PO PRN (18:28)
--- NOTE | 2020-02-14 20:03 | MHHPEPDOC ---
General Legal Status: 9.39 Chief Complaint ". History of Present Illness HISTORY OF THE PRESENT ILLNESS: Patient is a 19 -year-old , female, who Yordy Queen was seen for a psychiatric evaluation today having been recently readmitted to our inpatient psychiatric unit--she has a long history of psychiatric illness despite the fact she is only 19 years of age--she has multiple psychiatric admissions here--in fact she was just discharged earlier this week from our inpatient unit--apparently she went home was very uncomfortable there felt as if she was having suicidal thoughts and voices telling to hurt herself--she then went to her stepmother's and proceeded to overdose on a medication she is unsure as to what in fact it was She has the diagnosis of a depressive disorder along with borderline personality disorder At this point she is requesting that she be placed on a mood stabilizer and Abilify--she does not want any further treatment with Haldol She states that she has been on Abilify and Depakote in the past with positive results At this point time I see no reason why not change the medication because of her highly recidivist that behavior and mood swings that resulted in a rapid rehospitalization and numerous psychiatric hospitalizations The following medications were altered or changed because of clinical condition and ineffectiveness The Haldol was discontinued for lack of efficacy Remeron was discontinued again for lack of efficacy and weight gain Prazosin was decreased by 1 mg Trazodone at bedtime was discontinued for lack of efficacy Particular attention was paid to the fact that elmer has type 2 diabetes and is overweight Mental status She is alert and oriented States that she is continuing to auditory hallucinations telling her to harm herself She was able to contract for safety while on the unit Denies any homicidality Speech is normal eye contact fair Her thoughts were linear though she is highly distractible and has a short attention span She was depressed in terms of her mood Her affect was consistent with her depressed mood She is easily irritated At this point because of lack of efficacy I will discontinue the Haldol and start modest doses of the Abilify and Depakote Psychiatric Review of Systems Depression (2 or more weeks): depressed mood, feelings of excess/guilt, feelings of worthlesness, difficulty concentrating Tanya (4 or more days of): expansive mood Psychosis: auditory hallucination Anxiety: gen/non-specific anxiety Past Psychiatric History Previous Psychiatric Diagnosis: . Previous Psychiatric Admissions: . Suicide Attempts: . Psychiatric Follow-up: . Psychiatric medications: . Past Medical History Medical Problems Diabetes mellitus type 2 Overweight Head Injury: No Seizures: No Hospitalizations: No Surgeries: No Family Medical/Psychiatric HX Psychiatric Disorders: No Addiction: No Suicide Attemps/Completions: No Social History Childhood: . Abuse/Trauma:. Current Living Situation: . Education: . Employment: . Social Support: . Legal: . Marital: . A-FIB/CHADSVASC A-FIB History Current/History of A-Fib/PAF?: No Current PO Anticoag Therapy: No Age/Risk Factor Scoring CHADSVASC: CHADSVASC Response (Comments) Value Age Risk Factor Age < 65 years old 0 Total 0 Initial Treatment Plan 1. Patient was admitted on a [9.39] status. 2. Complete history was obtained. 3. With patients permission, family will be contacted and database will be expanded. 4. Patients medication regimen will be reviewed and changed accordingly. 5. Patient will be provided with protected environment. 6. Patient will be treated with individual, group, and milieu therapies. 7. Patient will receive supportive psych-education. 8. Discharge planning will commence immediately. 9. Outpatient follow-up treatment will be strongly recommended. 10. The initial treatment plan will focus initially on: * Depression. * Risk for suicide. ESTIMATED LENGTH OF STAY: - DAYS. TIME SPENT COUNSELING AND COORDINATING INITIAL CARE: minutes. Vital Signs Vital Signs Date Time Temp Pulse Resp B/P (MAP) Pulse Ox O2 Delivery O2 Flow Rate FiO2 02/14/20 16:59 98.8 86 20 138/71 (93) 02/14/20 02:02 98 Room Air Laboratory Data 24H Labs Laboratory Tests 2 02/13/20 21:43: Lactic Acid Level 1.3 Medications Scheduled Aripiprazole (Abilify) 5 Mg Tablet, 5 MG PO DAILY Benzonatate (Tessalon Perle) 100 Mg Capsule, 100 MG PO TID, (Reported) Benztropine Mesylate (Benztropine Mesylate) 2 Mg Tablet, 2 MG PO DAILY, (Reported) Benztropine Mesylate (Benztropine Mesylate) 2 Mg Tablet, 2 MG PO DAILY Cetirizine HCl (Cetirizine HCl) 10 Mg Tablet, 10 MG PO DAILY, (Reported) Cholecalciferol (Vitamin D3) (Vitamin D3) 1,000 Unit Tablet, 1,000 UNITS PO D AILY, (Reported) HAS NOT STARTED YET Cyanocobalamin (Vitamin B-12) (Vitamin B-12) 1,000 Mcg Tablet, 1,000 MCG PO DAILY, (Reported) HAS NOT STARTED YET Divalproex Sodium (Depakote ER) 500 Mg Tab.er.24h, 500 MG PO BID Hydrocortisone Acetate (Anucort-Hc) 25 Mg Supp.rect, 25 MG [place] Q12H Metformin HCl (Metformin HCl) 500 Mg Tablet, 500 MG PO TID, (Reported) Prazosin HCl (Minipress) 1 Mg Capsule, 2 MG PO QHS Quetiapine Fumarate (Quetiapine Fumarate) 50 Mg Tablet, 50 MG PO QHS Sennosides/Docusate Sodium (Senna Plus Tablet) 1 Each Tablet, 1 TAB PO BID Sucralfate (Sucralfate) 1 Gm Tablet, 1 GRAM PO ACHS, (Reported) Scheduled PRN Brompheniram/Phenylephrine/Dm (Dimetapp Cold-Cough Liquid) 118 Ml Solution, 5 ML PO TID PRN for COUGH, (Reported) HAS NOT STARTED YET Olanzapine (Olanzapine) 5 Mg Tablet, 5 MG PO Q4HP PRN for AGITATION Allergies Coded Allergies: Mushroom (Verified Allergy, Unknown, 02/13/20) Penicillins (Verified Allergy, Unknown, 02/13/20) Sulfa (Sulfonamide Antibiotics) (Verified Allergy, Unknown, 02/13/20) TURKEY (Verified Allergy, Unknown, 02/13/20) emtricitabine (Verified Allergy, Unknown, 02/13/20) latex (Verified Allergy, Unknown, 02/13/20) raltegravir (Verified Allergy, Unknown, 02/13/20) sulfamethoxazole (Verified Allergy, Unknown, 02/13/20) tomato (Verified Allergy, Unknown, 02/13/20) trimethoprim (Verified Allergy, Unknown, 02/13/20) Harsha Almanza MD Feb 14, 2020 20:03
[2020-02-14] MEDS: DIVALPROEX 250 MG TAB PO SCH (20:15)
[2020-02-14] MEDS: PRAZOSIN 1 MG CAP PO SCH (20:17)
[2020-02-14] MEDS: ONDANSETRON 4 MG ORAL DISINTEGRATING TAB PO PRN (20:44)
[2020-02-14] MEDS: QUEtiapine FUMARATE 50 MG TAB PO PRN (20:56)
[2020-02-15] MEDS: SUCRALFATE 1 GM TAB PO SCH ×4 (06:38→20:17)
[2020-02-15 06:52] VITALS: BP 127/84
[2020-02-15] MEDS: CYCLOBENZAPRINE 10MG TABLET PO SCH ×2 (08:22→20:26)
[2020-02-15] MEDS: BENZTROPINE 2 MG TAB PO SCH (08:23)
[2020-02-15] MEDS: CETIRIZINE (ZyrTEC) 10 MG TAB PO SCH (08:23)
[2020-02-15] MEDS: VITAMIN D 1,000 INTERNATIONAL UNITS TABLET PO SCH (08:23)
[2020-02-15] MEDS: metFORMIN (GLUCOPHAGE) 500 MG TAB PO SCH ×3 (08:23→20:22)
[2020-02-15] MEDS: BENZONATATE 100 MG CAP PO SCH ×3 (08:23→20:20)
[2020-02-15] MEDS: DIVALPROEX 250 MG TAB PO SCH (08:23)
[2020-02-15] MEDS: ONDANSETRON 4 MG ORAL DISINTEGRATING TAB PO PRN (08:59)
--- NOTE | 2020-02-15 14:44 | MHIPNPDOC ---
[facility] Progress Note Progress Note DATE OF SERVICE: 02/15/20 Bernice was seen for medical psychotherapy today Patient was seen for a medical psychotherapy session in which the patient's treatment plan was reviewed, mental status exam performed, vital signs reviewed, current medical conditions reviewed, and treatment goals were reviewed This visit was performed as a telehealth visit utilizing an interactive a/v telecommunications system or telephone that permitted real time communication between myself and the patient--permission/consent from patient/guardian was obtained The main issue I discussed with the patient today was her mood swings and irritability along with aggressive responses to conflict --in that regard we decided to increase the dose of the Depakote she was taking in order to address this issue--the new dose will be 500 mg of the extended release twice daily--the patient agreed and understood this change in medication MENTAL STATUS EXAM Level of consciousness--patient was alert and oriented to time place person Appearance-normal posture, normal dress, no prominent physical abnormalities, a lert, cooperative Behavior--like to good, no psychomotor agitation or retardation, no abnormal movements, no tremor Speech--normal rate and rhythm--normal volume Mood--euthymic Affect--normal range and consistent with mood--stable Thought processes--logical and linear , goal directed and coherent--no thought blocking or flight of ideas, no loose associations, no tangential thinking, no word salad, no thought blocking, no circumstantiality Thought content--no ideas of reference no auditory or visual hallucinations, no delusional thinking, no thoughts of derealization or depersonalization, no obsessive thinking, no expressed phobias, Cognition--patient was alert and able to focus-sustained appropriate mental attention-memory immediate and short-term memory intact-abstract thinking present, Insight---fair Judgment or the ability to anticipate consequences of behavior intact Patient denied any suicidal ideation or impulses Patient denied any homicidal impulses or ideation 20 minutes was spent with the patient and documentation The patient remains on prazosin 2 mg at bedtime Abilify 5 mg at bedtime The patient will start the 500 mg of Depakote extended release this evening Vital Signs Vital Signs Date Time Temp Pulse Resp B/P (MAP) Pulse Ox O2 Delivery O2 Flow Rate FiO2 02/15/20 06:52 97.3 88 12 127/84 (98) Room Air 02/14/20 02:02 98 Current Medications Current Medications Medications (Trade) Dose Ordered Sig/Susy Route PRN Reason Start Time Stop Time Status Last Admin Dose Admin Al Hydrox/Mg Hydrox/Simethicone (Mylanta) 30 ml Q4HP PRN PO HEARTBURN/INDIGESTION 02/14/20 01:30 02/14/20 18:28 Aripiprazole (AbiLIFY) 5 mg QHS PO 02/14/20 21:00 02/14/20 20:17 Benzonatate (Tessalon Perles) 100 mg TID PO 02/13/20 21:00 02/15/20 08:23 Benztropine Mesylate (Cogentin) 2 mg DAILY PO 02/14/20 09:00 02/15/20 08:23 Cetirizine HCl (ZyrTEC) 10 mg DAILY PO 02/14/20 09:00 02/15/20 08:23 Cyclobenzaprine HCl (Flexeril) 10 mg BID PO 02/13/20 21:00 02/15/20 08:22 Divalproex Sodium (Depakote Er) 500 mg BID PO 02/15/20 21:00 Divalproex Sodium (Depakote) 250 mg TID PO 02/14/20 21:00 02/15/20 14:42 DC 02/15/20 08:23 Haloperidol (Haldol) 5 mg DAILY PO 02/14/20 09:00 02/14/20 20:02 DC 02/14/20 09:09 Haloperidol (Haldol) 10 mg QHS PO 02/13/20 21:00 02/14/20 20:02 DC Home Med (Med Rec Complete!) ASDIRECTED XX 02/13/20 22:45 02/13/20 22:36 DC Ibuprofen (Advil) 600 mg TID PRN PO PAIN 02/14/20 01:30 02/14/20 20:18 Magnesium Hydroxide (Milk Of Magnesia) 30 ml DAILYPRN PRN PO CONSTIPATION 02/14/20 01:30 Metformin HCl (Glucophage) 500 mg TID PO 02/13/20 21:00 02/15/20 08:23 Metoclopramide HCl (Reglan) 10 mg Q6H PRN PO NAUSEA OR VOMITING 02/15/20 14:15 Mirtazapine (Remeron) 15 mg QHS PO 02/13/20 21:00 02/14/20 20:02 DC Nicotine (Nicoderm Cq 21mg) 1 patch DAILY PRN TD Nicotine withdrawl. 02/14/20 01:30 Olanzapine (ZyPREXA ZYDIS) 5 mg Q4HP PRN PO AGITATION 02/14/20 01:30 Ondansetron HCl (Zofran Odt) 4 mg Q6HP PRN PO NAUSEA OR VOMITING 02/14/20 20:15 02/15/20 14:18 DC 02/15/20 08:59 Prazosin HCl (Minipress) 2 mg QHS PO 02/14/20 21:00 02/14/20 20:17 Prazosin HCl (Minipress) 3 mg QHS PO 02/13/20 21:00 02/14/20 20:02 DC Quetiapine Fumarate (SEROquel) 50 mg QHSP PRN PO insomnia 02/14/20 21:00 02/14/20 20:56 Sucralfate (Carafate) 1 gm ACHS PO 02/14/20 07:30 02/15/20 12:40 Trazodone HCl (Desyrel) 50 mg QHS PO 02/13/20 21:00 02/14/20 20:02 DC Vitamin D (Vitamin D) 1,000 units DAILY PO 02/14/20 09:00 02/15/20 08:23 Allergies Coded Allergies: Mushroom (Verified Allergy, Unknown, 02/13/20) Penicillins (Verified Allergy, Unknown, 02/13/20) Sulfa (Sulfonamide Antibiotics) (Verified Allergy, Unknown, 02/13/20) TURKEY (Verified Allergy, Unknown, 02/13/20) emtricitabine (Verified Allergy, Unknown, 02/13/20) latex (Verified Allergy, Unknown, 02/13/20) raltegravir (Verified Allergy, Unknown, 02/13/20) sulfamethoxazole (Verified Allergy, Unknown, 02/13/20) tomato (Verified Allergy, Unknown, 02/13/20) trimethoprim (Verified Allergy, Unknown, 02/13/20) Harsha Almanza MD Feb 15, 2020 14:44
[2020-02-15] MEDS ORDERED: METOCLOPRAMIDE 5 MG TAB PO ONE (15:00)
[2020-02-15] MEDS: METOCLOPRAMIDE 10 MG TAB PO PRN (15:28)
[2020-02-15 18:16] VITALS: BP 128/69
[2020-02-15] MEDS: MAALOX 30 ML SUSP *UDC PO PRN (19:24)
[2020-02-15] MEDS: DIVALPROEX 500MG *ER* TAB PO SCH (20:18)
[2020-02-15] MEDS: IBUPROFEN 600MG TAB PO PRN (20:18)
[2020-02-15] MEDS: PRAZOSIN 1 MG CAP PO SCH (20:22)
[2020-02-15] MEDS: OLANZapine ORAL DISINTEGRATING TAB 5MG PO PRN (20:48)
[2020-02-16 06:53] VITALS: BP 159/68
[2020-02-16] MEDS: CETIRIZINE (ZyrTEC) 10 MG TAB PO SCH (08:39)
[2020-02-16] MEDS: metFORMIN (GLUCOPHAGE) 500 MG TAB PO SCH ×3 (08:39→20:07)
[2020-02-16] MEDS: VITAMIN D 1,000 INTERNATIONAL UNITS TABLET PO SCH (08:39)
[2020-02-16] MEDS: DIVALPROEX 500MG *ER* TAB PO SCH ×2 (08:39→20:07)
[2020-02-16] MEDS: CYCLOBENZAPRINE 10MG TABLET PO SCH ×2 (08:39→20:07)
[2020-02-16] MEDS: SUCRALFATE 1 GM TAB PO SCH ×4 (08:39→20:07)
[2020-02-16] MEDS: BENZONATATE 100 MG CAP PO SCH ×3 (08:39→20:07)
[2020-02-16] MEDS: BENZTROPINE 2 MG TAB PO SCH (08:39)
[2020-02-16 15:53] VITALS: BP 127/62
[2020-02-16] MEDS: METOCLOPRAMIDE 10 MG TAB PO PRN (17:57)
[2020-02-16] MEDS ORDERED: OLANZapine ORAL DISINTEGRATING TAB 5MG PO ONE (20:05)
[2020-02-16] MEDS: QUEtiapine FUMARATE 50 MG TAB PO PRN (20:07)
[2020-02-16] MEDS: PRAZOSIN 1 MG CAP PO SCH (20:09)
[2020-02-16] MEDS: OLANZapine ORAL DISINTEGRATING TAB 5MG PO PRN (20:10)
[2020-02-16] MEDS ORDERED: diphenhydrAMINE 50MG CAP PO ONE (20:30)
[2020-02-17] MEDS: SUCRALFATE 1 GM TAB PO SCH ×4 (07:14→20:15)
[2020-02-17] MEDS: BENZONATATE 100 MG CAP PO SCH ×3 (08:28→20:15)
[2020-02-17] MEDS: VITAMIN D 1,000 INTERNATIONAL UNITS TABLET PO SCH (08:28)
[2020-02-17] MEDS: CETIRIZINE (ZyrTEC) 10 MG TAB PO SCH (08:28)
[2020-02-17] MEDS: BENZTROPINE 2 MG TAB PO SCH (08:28)
[2020-02-17] MEDS: metFORMIN (GLUCOPHAGE) 500 MG TAB PO SCH ×3 (08:29→20:15)
[2020-02-17] MEDS: DIVALPROEX 500MG *ER* TAB PO SCH ×2 (08:29→20:14)
[2020-02-17] MEDS: CYCLOBENZAPRINE 10MG TABLET PO SCH ×2 (08:29→20:15)
--- NOTE | 2020-02-17 09:28 | MHIPN ---
DATE: 02/16/2020 The patient was not seen today, as she refused to see me.
[2020-02-17] MEDS: METOCLOPRAMIDE 10 MG TAB PO PRN (10:57)
[2020-02-17] MEDS: OLANZapine ORAL DISINTEGRATING TAB 5MG PO PRN ×2 (12:21→19:52)
[2020-02-17 16:05] VITALS: BP 142/65
[2020-02-17] MEDS: IBUPROFEN 600MG TAB PO PRN (16:15)
[2020-02-17] MEDS: QUEtiapine FUMARATE 50 MG TAB PO PRN (20:14)
[2020-02-17 20:15] VITALS: BP 143/96
[2020-02-17] MEDS: PRAZOSIN 1 MG CAP PO SCH (20:15)
[2020-02-18] MEDS: IBUPROFEN 600MG TAB PO PRN (01:22)
[2020-02-18 06:26] VITALS: BP 115/62
[2020-02-18] MEDS: SUCRALFATE 1 GM TAB PO SCH ×3 (06:59→16:57)
[2020-02-18] MEDS ORDERED: PANTOPRAZOLE 40MG TAB (PROTONIX) PO SCH (09:00)
[2020-02-18] MEDS ORDERED: DOCUSATE SODIUM 100 MG CAP PO SCH (09:00)
[2020-02-18] MEDS: BENZTROPINE 2 MG TAB PO SCH (09:19)
[2020-02-18] MEDS: CETIRIZINE (ZyrTEC) 10 MG TAB PO SCH (09:19)
[2020-02-18] MEDS: VITAMIN D 1,000 INTERNATIONAL UNITS TABLET PO SCH (09:19)
[2020-02-18] MEDS: metFORMIN (GLUCOPHAGE) 500 MG TAB PO SCH (09:19)
[2020-02-18] MEDS: BENZONATATE 100 MG CAP PO SCH ×2 (09:19→15:03)
[2020-02-18] MEDS: CYCLOBENZAPRINE 10MG TABLET PO SCH (09:19)
[2020-02-18] MEDS: DIVALPROEX 500MG *ER* TAB PO SCH (09:20)
--- NOTE | 2020-02-18 09:32 | MHIPNPDOC ---
[facility] Progress Note Progress Note DATE OF SERVICE: 02/18/20 HPI: Bernice presents today for a follow up. She reports gastrointestinal issues and notes recent dietary changes, Currently taking Zofran for stomach issues. Cont inues to be irritable and demeaning towards staff. She's very displeased with her diet changes and is focused on housing, she hasn't made much progress from previous admissions. Objective Behavior: disheveled. Affect: irritable. Speech: Normal volume. Normal rate. Thought Form: wants to change her diet. Linear and goal directed. Thought Content: reports suicidal ideation only when being denied what she desires. Judgement: impaired. Insight: impaired. Assessment F33.9 Major depressive disorder, recurrent, unspecified F60.3 Borderline personality disorder F78 Other intellectual disabilities Plan Continue on current medications. Referral to [facility] as this is a possible option to reduce her frequent readmissions. Vital Signs Vital Signs Date Time Temp Pulse Resp B/P (MAP) Pulse Ox O2 Delivery O2 Flow Rate FiO2 02/18/20 06:26 97.8 79 18 115/62 (79) 02/16/20 06:53 99 Room Air Current Medications Current Medications Medications (Trade) Dose Ordered Sig/Susy Route PRN Reason Start Time Stop Time Status Last Admin Dose Admin Al Hydrox/Mg Hydrox/Simethicone (Mylanta) 30 ml Q4HP PRN PO HEARTBURN/INDIGESTION 02/14/20 01:30 02/15/20 19:24 Aripiprazole (AbiLIFY) 5 mg QHS PO 02/14/20 21:00 02/17/20 20:14 Benzonatate (Tessalon Perles) 100 mg TID PO 02/13/20 21:00 02/18/20 09:19 Benztropine Mesylate (Cogentin) 2 mg DAILY PO 02/14/20 09:00 02/18/20 09:19 Cetirizine HCl (ZyrTEC) 10 mg DAILY PO 02/14/20 09:00 02/18/20 09:19 Cyclobenzaprine HCl (Flexeril) 10 mg BID PO 02/13/20 21:00 02/18/20 09:19 Divalproex Sodium (Depakote Er) 500 mg BID PO 02/15/20 21:00 02/18/20 09:20 Divalproex Sodium (Depakote) 250 mg TID PO 02/14/20 21:00 02/15/20 14:42 DC 02/15/20 08:23 Haloperidol (Haldol) 5 mg DAILY PO 02/14/20 09:00 02/14/20 20:02 DC 02/14/20 09:09 Haloperidol (Haldol) 10 mg QHS PO 02/13/20 21:00 02/14/20 20:02 DC Home Med (Med Rec Complete!) ASDIRECTED XX 02/13/20 22:45 02/13/20 22:36 DC Ibuprofen (Advil) 600 mg TID PRN PO PAIN 02/14/20 01:30 02/18/20 01:22 Magnesium Hydroxide (Milk Of Magnesia) 30 ml DAILYPRN PRN PO CONSTIPATION 02/14/20 01:30 Metformin HCl (Glucophage) 500 mg TID PO 02/13/20 21:00 02/18/20 09:19 Metoclopramide HCl (Reglan) 10 mg Q6H PRN PO NAUSEA OR VOMITING 02/15/20 14:15 02/17/20 10:57 Mirtazapine (Remeron) 15 mg QHS PO 02/13/20 21:00 02/14/20 20:02 DC Nicotine (Nicoderm Cq 21mg) 1 patch DAILY PRN TD Nicotine withdrawl. 02/14/20 01:30 Olanzapine (ZyPREXA ZYDIS) 5 mg Q4HP PRN PO AGITATION 02/14/20 01:30 02/17/20 19:52 Ondansetron HCl (Zofran Odt) 4 mg Q6HP PRN PO NAUSEA OR VOMITING 02/14/20 20:15 02/15/20 14:18 DC 02/15/20 08:59 Prazosin HCl (Minipress) 2 mg QHS PO 02/14/20 21:00 02/17/20 20:15 Prazosin HCl (Minipress) 3 mg QHS PO 02/13/20 21:00 02/14/20 20:02 DC Quetiapine Fumarate (SEROquel) 50 mg QHSP PRN PO insomnia 02/14/20 21:00 02/17/20 20:14 Sucralfate (Carafate) 1 gm ACHS PO 02/14/20 07:30 02/18/20 06:59 Trazodone HCl (Desyrel) 50 mg QHS PO 02/13/20 21:00 02/14/20 20:02 DC Vitamin D (Vitamin D) 1,000 units DAILY PO 02/14/20 09:00 02/18/20 09:19 Allergies Coded Allergies: Mushroom (Verified Allergy, Unknown, 02/13/20) Penicillins (Verified Allergy, Unknown, 02/13/20) Sulfa (Sulfonamide Antibiotics) (Verified Allergy, Unknown, 02/13/20) TURKEY (Verified Allergy, Unknown, 02/13/20) emtricitabine (Verified Allergy, Unknown, 02/13/20) latex (Verified Allergy, Unknown, 02/13/20) raltegravir (Verified Allergy, Unknown, 02/13/20) sulfamethoxazole (Verified Allergy, Unknown, 02/13/20) tomato (Verified Allergy, Unknown, 02/13/20) trimethoprim (Verified Allergy, Unknown, 02/13/20) PHYLLIS RIZZO DO Feb 18, 2020 09:32
--- NOTE | 2020-02-18 10:41 | MHIPN ---
DATE OF SERVICE: 02/17/2020 The patient today tells me that she thinks it is because she overdosed on the naproxen. She says that they have been trying different things like Zantac and Reglan on her and nothing seems to help so far. MENTAL STATUS EXAMINATION: The patient is alert. She is oriented. She was pleasant and cooperative today. She was not suicidal, homicidal. She was pleasant. She was not having any formal thought disorder. She said her mood was "okay," Affect was flat. She was not voicing any suicidal or homicidal thoughts, and she was not psychotic. Concentration is fair. Memory is intact. Insight and judgment is poor. DIAGNOSIS: Other specified depressive disorder and borderline personality disorder. TREATMENT PLAN: We will continue to further evaluate and monitor the patient for continued stabilization of her mood and continued resolution of suicidal ideation. FRANCISCO
[2020-02-18] MEDS ORDERED: DEXTROSE 50% 50 ML SYRINGE IV PRN (14:45)
[2020-02-18] MEDS ORDERED: GLUCOSE 4GM CHEW TABLET PO PRN (14:45)
[2020-02-18] MEDS ORDERED: GLUCAGON INJ 1MG VIAL SC PRN (14:45)
--- NOTE | 2020-02-18 14:47 | IPNPDOC ---
Date Seen The patient was seen on 02/18/20. Progress Note SUBJECTIVE: I was called down to evaluate the patient as she had had several episodes of rectal bleeding this afternoon. According to staff most of the blood was on toilet paper but there was also some drops of blood on the hat in the toilet. The patient previously stated that she had hemorrhoids. On examination of the patient's rectum there was an external hemorrhoid which was not actively bleeding at that time. There was also bright red blood around the anal sphincter. Patient denies foreign object or itching. There was also 2 pieces of toilet paper with bright red blood by the hat in the bathroom. The patient had some tenderness to the external hemorrhoid but there was no bleeding elicited on palpitation of that hemorrhoid. Vital signs showed blood pressure 136/81, respiratory rate 18, heart rate 114, temperature 99.1, O2 sat 98% on room air. Patient appears stable with no lightheadedness, dizziness, nausea documented. She recently was advanced to a regular diet from clear liquid diet by psychiatry team for nausea. OBJECTIVE: VITAL SIGNS: BP 136/81, RR 18, HR 114, temp 99.1. Repeat HR 114 PHYSICAL EXAMINATION: CONSTITUTIONAL: No acute distress, resting comfortably, AAO x 3 EYES: PERRLA, EOM intact HENT, MOUTH: Normocephalic, atraumatic, moist mucous membranes NECK: SUPPLE, no JVD, no lymphadenopathy, no carotid bruit CV: Regular rate and rhythm, S1S2 normal, no murmurs/rubs/gallops RESPIRATORY: Clear to auscultation bilaterally, no rales/rhonchi/wheezes GI: obese abdomen, BS positive in 4 quadrants, soft, nontender, nondistended, no rebound or guarding, no organomegaly : BRB around anal sphincter with no clots. External hemorrhoid, tender to touc h but not actively bleeding. Vaginal exam not performed MUSCULOSKELETAL: No cyanosis, clubbing, swelling, joint deformity, extremity edema INTEGUMENTARY: Intact, no rashes, no lesions, no erythema NEUROLOGIC: Cranial Nerves II-XII are intact, no focal deficits PSYCHIATRIC: Mood and affect are normal LABORATORY DATA: Please see below IMAGING: None ASSESSMENT: Patient is a 19 y/o F admitted for unspecified depressive disorder, suicidal attempt who was reevaluated today for rectal bleeding. PLAN: 1. Rectal bleeding likely 2/2 to hemorrhoids vs. GI bleed. Hx of hemorrhoids -External painful but not actively bleeding on exam. Unknown if hemorrhoids present internally that were not seen. -Stopping Ibuprofen -Starting on sitz baths BID x 3 days -Anusol rectal suppository BID -Recommend 20-30 g fiber daily, hydrate with at least 100 ounces water daily, keep water at bedside. -Q6hrs CBC, some mild tachycardia (unknown if this is due to patient walking around alot and with some anxiety). Nutrition consulted. -HR elevated 114 on evaluation; repeat 114. -Changing back to clear liquid diet. -PPI -Patient will be followed daily by our service to ensure improvement and attention to matter. If any bleeding, labs or VS should worsen then medicine should be notified immediately to reevaluate. 2. DM type II -Stopping metformin now in the event that bleeding worsens and may need imaging -Started on AC/HS fingersticks, ISS -On clear liquid diet, monitor for signs of hypoglyemia. May do best with Q6hrs Fingersticks and ISS. -Hypoglycemic protocol initiated. DISPOSITION: Patient should be followed daily by medicine team. DO NOT take off census until patient's active issue has improved. Please call us to reevaluate at anytime needed. VS, I&O, 24H, Fishbone Vital Signs/I&O Vital Signs Date Time Temp Pulse Resp B/P (MAP) Pulse Ox O2 Delivery O2 Flow Rate FiO2 02/18/20 06:26 97.8 79 18 115/62 (79) 02/16/20 06:53 99 Room Air Laboratory Data Microbiology Microbiology 02/13/20 Respiratory Virus Panel (PCR) ([facility]) - Final, Complete Current Medications Current Medications Medications (Trade) Dose Ordered Sig/Susy Route PRN Reason Start Time Stop Time Status Last Admin Dose Admin Al Hydrox/Mg Hydrox/Simethicone (Mylanta) 30 ml Q4HP PRN PO HEARTBURN/INDIGESTION 02/14/20 01:30 02/15/20 19:24 Aripiprazole (AbiLIFY) 5 mg QHS PO 02/14/20 21:00 02/17/20 20:14 Benzonatate (Tessalon Perles) 100 mg TID PO 02/13/20 21:00 02/18/20 09:19 Benztropine Mesylate (Cogentin) 2 mg DAILY PO 02/14/20 09:00 02/18/20 09:19 Cetirizine HCl (ZyrTEC) 10 mg DAILY PO 02/14/20 09:00 02/18/20 09:19 Cyclobenzaprine HCl (Flexeril) 10 mg BID PO 02/13/20 21:00 02/18/20 09:19 Divalproex Sodium (Depakote Er) 500 mg BID PO 02/15/20 21:00 02/18/20 09:20 Divalproex Sodium (Depakote) 250 mg TID PO 02/14/20 21:00 02/15/20 14:42 DC 02/15/20 08:23 Haloperidol (Haldol) 5 mg DAILY PO 02/14/20 09:00 02/14/20 20:02 DC 02/14/20 09:09 Haloperidol (Haldol) 10 mg QHS PO 02/13/20 21:00 02/14/20 20:02 DC Home Med (Med Rec Complete!) ASDIRECTED XX 02/13/20 22:45 02/13/20 22:36 DC Ibuprofen (Advil) 600 mg TID PRN PO PAIN 02/14/20 01:30 02/18/20 01:22 Magnesium Hydroxide (Milk Of Magnesia) 30 ml DAILYPRN PRN PO CONSTIPATION 02/14/20 01:30 Metformin HCl (Glucophage) 500 mg TID PO 02/13/20 21:00 02/18/20 09:19 Metoclopramide HCl (Reglan) 10 mg Q6H PRN PO NAUSEA OR VOMITING 02/15/20 14:15 02/17/20 10:57 Mirtazapine (Remeron) 15 mg QHS PO 02/13/20 21:00 02/14/20 20:02 DC Nicotine (Nicoderm Cq 21mg) 1 patch DAILY PRN TD Nicotine withdrawl. 02/14/20 01:30 Olanzapine (ZyPREXA ZYDIS) 5 mg Q4HP PRN PO AGITATION 02/14/20 01:30 02/17/20 19:52 Ondansetron HCl (Zofran Odt) 4 mg Q6HP PRN PO NAUSEA OR VOMITING 02/14/20 20:15 02/15/20 14:18 DC 02/15/20 08:59 Prazosin HCl (Minipress) 2 mg QHS PO 02/14/20 21:00 02/17/20 20:15 Prazosin HCl (Minipress) 3 mg QHS PO 02/13/20 21:00 02/14/20 20:02 DC Quetiapine Fumarate (SEROquel) 50 mg QHSP PRN PO insomnia 02/14/20 21:00 02/17/20 20:14 Sucralfate (Carafate) 1 gm ACHS PO 02/14/20 07:30 02/18/20 11:45 Trazodone HCl (Desyrel) 50 mg QHS PO 02/13/20 21:00 02/14/20 20:02 DC Vitamin D (Vitamin D) 1,000 units DAILY PO 02/14/20 09:00 02/18/20 09:19 Allergies Coded Allergies: Mushroom (Verified Allergy, Unknown, 02/13/20) Penicillins (Verified Allergy, Unknown, 02/13/20) Sulfa (Sulfonamide Antibiotics) (Verified Allergy, Unknown, 02/13/20) TURKEY (Verified Allergy, Unknown, 02/13/20) emtricitabine (Verified Allergy, Unknown, 02/13/20) latex (Verified Allergy, Unknown, 02/13/20) raltegravir (Verified Allergy, Unknown, 02/13/20) sulfamethoxazole (Verified Allergy, Unknown, 02/13/20) tomato (Verified Allergy, Unknown, 02/13/20) trimethoprim (Verified Allergy, Unknown, 02/13/20) Meghan Sanchez MD Feb 18, 2020 14:47
[2020-02-18] MEDS ORDERED: ANUSOL HC 25MG SUPP PR ONE (15:00)
[2020-02-18 15:26] LABS: HEMATOCRIT 35.7 % (36.0-47.0); MEAN CORPUSCULAR HEMOGLOBIN 27.2 pg (27.0-33.0); MEAN CORPUSCULAR HGB CONC 30.8 g/dl (32.0-36.5); MEAN CORPUSCULAR VOLUME 88.1 fl (80.0-96.0); PLATELET COUNT, AUTOMATED 157 10^3/uL (150-450); RED BLOOD COUNT 4.05 10^6/uL (4.00-5.40); WHITE BLOOD COUNT 5.7 10^3/uL (4.0-10.0)
[2020-02-18 15:58] LABS: ALBUMIN 3.3 GM/DL (3.2-5.2); ALT/SGPT 21 U/L (12-78); BILIRUBIN,TOTAL 0.3 MG/DL (0.2-1.0); BLOOD UREA NITROGEN 6 MG/DL (7-18); CALCIUM LEVEL 8.6 MG/DL (8.5-10.1); CARBON DIOXIDE LEVEL 28 MEQ/L (21-32); CHLORIDE LEVEL 108 MEQ/L (98-107); CREATININE FOR GFR 0.68 MG/DL (0.55-1.30); GLOMERULAR FILTRATION RATE > 60.0 (>60); GLUCOSE, FASTING 104 MG/DL (70-100); POTASSIUM SERUM 3.7 MEQ/L (3.5-5.1); SODIUM LEVEL 139 MEQ/L (136-145); TOTAL PROTEIN 6.4 GM/DL (6.4-8.2)
[2020-02-18] MEDS: OLANZapine ORAL DISINTEGRATING TAB 5MG PO PRN (16:32)
[2020-02-18] MEDS ORDERED: HumaLOG INSULIN (NovoLOG) PER UNIT SC SCH ×2 (17:30→21:00)
[2020-02-18 18:00] VITALS: BP 166/72
[2020-02-18] MEDS ORDERED: ANUSOL HC 25MG SUPP PR SCH (21:00)
[2020-02-19] MEDS ORDERED: MINI1CAP PO (16:21)
[2020-02-19] MEDS ORDERED: ANUSHCSU PR (16:21)
[2020-02-19] MEDS ORDERED: BENZ2TAB5 PO (16:21)
[2020-02-19] MEDS ORDERED: QUET5TAB PO (16:21)
[2020-02-19] MEDS ORDERED: OLAN5TAB PO (16:21)
[2020-02-19] MEDS ORDERED: DEPA500T2 PO (16:21)
[2020-02-19] MEDS ORDERED: ABIL1TAB11 PO (16:21)
[2020-02-19] MEDS ORDERED: SENN-52 PO (16:21)
== END 2020-02-18 18:55 | disposition home or self-care (01) | DRG 751 ==
LOC: M ED 14:04 → EDBD 14:04 → M ED INP 02-14 01:24 → M PSY 02-14 01:59
PROVIDERS: ADMIT Psychiatry & Neurology Psychiatry; ATTEND Psychiatry & Neurology Addiction Medicine
DX: F33.9 Major depressive disorder, recurrent, unspecified (principal); E66.01 Morbid (severe) obesity due to excess calories; E11.9 Type 2 diabetes mellitus without complications; F78 Other intellectual disabilities; F60.3 Borderline personality disorder; J45.909 Unspecified asthma, uncomplicated; E28.2 Polycystic ovarian syndrome; F17.210 Nicotine dependence, cigarettes, uncomplicated; M25.572 Pain in left ankle and joints of left foot; Z68.33 Body mass index [BMI] 33.0-33.9, adult; T39.312A Poisoning by propionic acid derivatives, intentional self-harm, initial encounter; T43.212A Poisoning by selective serotonin and norepinephrine reuptake inhibitors, intentional self-harm, initial encounter; K64.4 Residual hemorrhoidal skin tags; K62.5 Hemorrhage of anus and rectum

== ENCOUNTER 2020-02-18 18:42 | Observation (INO) | payer OTHER ==
[~2020-02-18] VITALS: Ht 167.6 cm; Wt 153.6 kg
[~2020-02-18 18:42] MED LIST changes: +ALL10TAB29 PO; -CETI-24 PO; +CYAN100050 PO; -D31000TA2 PO; +VITAD1000T PO
[2020-02-18 18:55] VITALS: BP 115/79
--- NOTE | 2020-02-18 20:04 | REPVR ---
PROCEDURE INFORMATION: Exam: CT Abdomen And Pelvis Without Contrast Exam date and time: 02/18/2020 7:28 PM Age: 19 years old Clinical indication: Other: Rectal bleeding; Additional info: Abdominal pain, rectal bleeding TECHNIQUE: Imaging protocol: Computed tomography of the abdomen and pelvis without contrast. Axial, coronal and sagittal reformatted images were created and reviewed. Radiation optimization: All CT scans at this facility use at least one of these dose optimization techniques: automated exposure control; mA and/or kV adjustment per patient size (includes targeted exams where dose is matched to clinical indication); or iterative reconstruction. COMPARISON: CT ABD PELVIS W/O CONTRAST 01/02/2020 3:42 AM FINDINGS: Pleural space: Trace left greater than right pleural effusions. Mediastinal space: Small hiatal hernia. Liver: Mild hepatomegaly. Gallbladder and bile ducts: No radiodense gallstones. No biliary ductal dilatation. Pancreas: Unremarkable. Spleen: Mild splenomegaly. Adrenals: Unremarkable. Kidneys and ureters: No mass. No radiodense calculi. No hydronephrosis. Stomach and bowel: No bowel wall thickening. No obstruction. No pneumatosis. Appendix: Normal. Intraperitoneal space: No free fluid. No organized fluid collection. No free air. Vasculature: Unremarkable. No aneurysm. Lymph nodes: No pathologically enlarged lymph nodes. Bladder: Unremarkable. Reproductive: 4.2 x 4.1 cm mildly complex right adnexal cystic lesion. Bones/joints: No acute osseous abnormality. Mild degenerative changes. Soft tissues: Small, fat containing umbilical and supraumbilical hernias. IMPRESSION: 1. Limited noncontrast examination. 2. Mild hepatosplenomegaly. 3. 4.2 x 4.1 cm mildly complex right adnexal cystic lesion. If clinically indicated, pelvic ultrasound may be obtained for further evaluation. 4. Additional findings, as above. Electronically signed by: Satish Osuna On 02/18/2020 20:03:17 PM
[2020-02-18 20:23] LABS: HEMATOCRIT 38.8 % (36.0-47.0); HEMOGLOBIN 11.8 g/dl (12.0-15.5); MEAN CORPUSCULAR HEMOGLOBIN 27.3 pg (27.0-33.0); MEAN CORPUSCULAR HGB CONC 30.4 g/dl (32.0-36.5); MEAN CORPUSCULAR VOLUME 89.8 fl (80.0-96.0); PLATELET COUNT, AUTOMATED 192 10^3/uL (150-450); RED BLOOD COUNT 4.32 10^6/uL (4.00-5.40); WHITE BLOOD COUNT 7.8 10^3/uL (4.0-10.0)
--- NOTE | 2020-02-18 20:29 | HPEPDOC ---
[facility] Medical History & Physical Date of Admission Feb 18, 2020 Date of Service: Feb 18, 2020 Attending Physician: Meghan Sanchez MD History and Physical HISTORY OF PRESENT ILLNESS: The patient is a 19-year-old female with past medical history of depression, PTSD, asthma, borderline personality disorder, PCO S, morbid obesity who was admitted on 03-03 after being brought in by police when she contacted them stating that she attempt to kill herself by ingesting venlafaxine and naproxen. Amount included one bottle for both. The patient has a history of auditory hallucinations and states that the voices in her head told her to overdose on these medications. She had had an argument with her [id number] which prompted her to this event she has had prior attempts of suicide by ingesting medications she admits. She also has a long history of psychiatric illness with numerous hospitalizations in the past. The patient was evaluated by myself on 02/14/2020 and states that she still once to kill herself but has known plan at this time. She admits to increased tearfulness, hopelessness and says that "nobody wants her around.". She admits to continuing to have auditory hallucinations that tell her commands. She denies any weight loss at home, visual hallucinations, episodes of increased anger, impulsivity, chest pain, shortness of breath, nausea, vomiting, fevers or chills. During her [facility] stay, patient slipped in the shower and was treated for left foot swelling. XR ruled out fracture. On 02/18/20, I was called down to evaluate the patient as she had had several episodes of rectal bleeding this afternoon. According to staff most of the blood was on toilet paper but there was also some drops of blood on the hat in the toilet. The patient previously stated that she had hemorrhoids. On examination of the patient's rectum there was an external hemorrhoid which was not actively bleeding at that time. There was also bright red blood around the anal sphincter. Patient denies foreign object or itching. There was also 2 pieces of toilet paper with bright red blood by the hat in the bathroom. The patient had some tenderness to the external hemorrhoid but there was no bleeding elicited on palpitation of that hemorrhoid. Vital signs showed blood pressure 136/81, respiratory rate 18, heart rate 114, temperature 99.1, O2 sat 98% on room air. Patient appears stable with no lightheadedness, dizziness, nausea documented. She recently was advanced to a regular diet from clear liquid diet by psychiatry team for nausea. She was started on sitz baths, Q6H CBC, anusol per rectum and was being watched closely. At 18:10 I was made aware the patient was now complaining of worsening lower abd pain, had increased nausea. Repeat CBC done initially today showed H/H stable compared to admission at . Decision was made to transfer to acute inpatient under observation admission to further workup abdominal pain, GI bleed. PAST MEDICAL HISTORY: Depression. Post-traumatic stress disorder (PTSD). Asthma. Borderline personality. PCOS. Morbid obesity. Left foot swelling 2/2 to fall in shower PAST SURGICAL HISTORY: Appendectomy. Tonsillectomy. Left oophorectomy. Adenoidectomy. FAMILY HISTORY: Mother: Hyperlipidemia, hypertension, COPD, diabetes mellitus, depression. Alive. Father: Diabetes mellitus, hypertension, hyperlipidemia. Alive. SOCIAL HISTORY: Smokes 4-5 cigarettes daily. No alcohol use. No recreational drug use. Lives independently in the local area. Primary care provider is Devi Orr at [facility]. She is currently unemployed. ALLERGIES: Please see below. CURRENT MEDICATIONS: Please see below. PHYSICAL EXAMINATION: VS: 166/72, 98.7, 18, 98, 99% on RA CONSTITUTIONAL: Appears in mild distress, AAO x 3 EYES: PERRLA, EOM intact HENT, MOUTH: Normocephalic, atraumatic, moist mucous membranes NECK: SUPPLE, no JVD, no lymphadenopathy, no carotid bruit CV: Regular rate and rhythm, S1S2 normal, no murmurs/rubs/gallops RESPIRATORY: Clear to auscultation bilaterally, no rales/rhonchi/wheezes GI: obese abdomen, BS positive in 4 quadrants, soft, mild abdominal pain to mid abdomen, nondistended, no rebound or guarding, no organomegaly : BRB around anal sphincter with no clots. External hemorrhoid, tender to touch but not actively bleeding. No blood appeard to be in vaginal vault MUSCULOSKELETAL: No cyanosis, clubbing, swelling, joint deformity, extremity edema INTEGUMENTARY: Intact, no rashes, no lesions, no erythema NEUROLOGIC: Cranial Nerves II-XII are intact, no focal deficits PSYCHIATRIC: Mood and affect are normal LABORATORY DATA: Please see below IMAGING: CT abd/pelvis pending ASSESSMENT: Patient is a 19 y/o F admitted for unspecified depressive disorder, suicidal attempt admitted to acute inpatient for increased abdominal pain, GI bleed . PLAN: 1. Abdominal pain with rectal bleeding likely 2/2 to hemorrhoids vs. GI bleed. Hx of hemorrhoids. -External painful but not actively bleeding on exam. Unknown if hemorrhoids present internally that were not seen. -HR elevated 114 on initial evaluation today, currently 98 -Stopped Ibuprofen -Starting on sitz baths BID x 3 days -Anusol rectal suppository BID -NPO -Q6hrs CBC, type and screen -PPI IV -F/u CT abd/pelvis 2. Unspecified depressive disorder with suicide attempt. -Admitted to [facility] before admission here -Resume medications when taking PO -Psychiatry consulted 3. Post-traumatic stress disorder (PTSD)/Borderline personality disorder. -Displays attention seeking behaviors -Plan as per psychiatry team -Resume medications when taking PO 4. Asthma. -Stable 5. PCOS. -Holding PO metformin while needing CT abd/pelvis -Resume home medications when appropriate 6. Morbid obesity -Recommend nutrition referral DISPOSITION: Admitted under inpatient status from inpatient mental health unit. Psychiatry (Dr. Barajas) made aware of admission and she will be consulted to follow patient while inpatient. Unknown at this time if patient will be discharged back to inpatient mental health when her acute medical problems improve. Vital Signs Vital Signs Date Time Temp Pulse Resp B/P (MAP) Pulse Ox O2 Delivery O2 Flow Rate FiO2 02/18/20 18:55 99.3 98 20 115/79 (91) 100 Room Air Laboratory Data Labs 24H Laboratory Tests 2 02/18/20 19:58: Nucleated Red Blood Cells % (auto) 0.0 CBC/BMP Laboratory Tests 02/18/20 19:58 Home Medications Scheduled Benzonatate (Tessalon Perle) 100 Mg Capsule, 100 MG PO TID Benztropine Mesylate (Benztropine Mesylate) 2 Mg Tablet, 2 MG PO DAILY Cetirizine HCl (Cetirizine HCl) 10 Mg Tablet, 10 MG PO DAILY Cholecalciferol (Vitamin D3) (Vitamin D3) 1,000 Unit Tablet, 1,000 UNITS PO DAILY HAS NOT STARTED YET Cyanocobalamin (Vitamin B-12) (Vitamin B-12) 1,000 Mcg Tablet, 1,000 MCG PO DAILY HAS NOT STARTED YET Cyclobenzaprine HCl (Cyclobenzaprine HCl) 10 Mg Tablet, 10 MG PO BID Haloperidol (Haloperidol) 5 Mg Tablet, 5 MG PO DAILY Haloperidol (Haloperidol) 10 Mg Tablet, 10 MG PO QHS Metformin HCl (Metformin HCl) 500 Mg Tablet, 500 MG PO TID Mirtazapine (Remeron) 15 Mg Tablet, 15 MG PO QHS Naproxen (Naproxen) 500 Mg Tablet, 500 MG PO BID Prazosin Hcl (Prazosin HCl) 1 Mg Capsule, 3 MG PO QHS Sucralfate (Sucralfate) 1 Gm Tablet, 1 GRAM PO ACHS Trazodone HCl (Trazodone HCl) 50 Mg Tablet, 50 MG PO QHS Venlafaxine HCl (Venlafaxine HCl ER) 75 Mg Cap.er.24h, 225 MG PO DAILY Scheduled PRN Brompheniram/Phenylephrine/Dm (Dimetapp Cold-Cough Liquid) 118 Ml Solution, 5 ML PO TID PRN for COUGH HAS NOT STARTED YET Ibuprofen (Ibuprofen) 600 Mg Tablet, 600 MG PO TID PRN for PAIN Allergies Coded Allergies: Mushroom (Verified Allergy, Unknown, 02/13/20) Penicillins (Verified Allergy, Unknown, 02/13/20) Sulfa (Sulfonamide Antibiotics) (Verified Allergy, Unknown, 02/13/20) TURKEY (Verified Allergy, Unknown, 02/13/20) emtricitabine (Verified Allergy, Unknown, 02/13/20) latex (Verified Allergy, Unknown, 02/13/20) raltegravir (Verified Allergy, Unknown, 02/13/20) sulfamethoxazole (Verified Allergy, Unknown, 02/13/20) tomato (Verified Allergy, Unknown, 02/13/20) trimethoprim (Verified Allergy, Unknown, 02/13/20) A-FIB/CHADSVASC A-FIB History Current/History of A-Fib/PAF?: No Current PO Anticoag Therapy: No Age/Risk Factor Scoring CHADSVASC: CHADSVASC Response (Comments) Value Age Risk Factor Age < 65 years old 0 Gender Risk Factor Female 1 Hx of CHF No 0 Hx of HTN No 0 Hx of Stroke/TIA/or VTE No 0 Hx of Diabetes No 0 Hx of Vascular Disease No 0 Total 1 Treatment Treatment ordered: NONE Reason Anticoagulant not given: Current bleeding Meghan Sanchez MD Feb 18, 2020 20:29
[2020-02-18] MEDS ORDERED: SUCRALFATE 1 GM TAB PO SCH (21:00)
[2020-02-18] MEDS: QUEtiapine FUMARATE 50 MG TAB PO SCH (21:01)
[2020-02-18] MEDS: DIVALPROEX 500MG *ER* TAB PO SCH (21:02)
[2020-02-18] MEDS: ANUSOL HC 25MG SUPP PR SCH (21:03)
[2020-02-18] MEDS: ACETAMINOPHEN TAB 650MG DOSE (2X325MG) PO PRN (21:03)
[2020-02-18] MEDS: PRAZOSIN 1 MG CAP PO SCH (21:06)
[2020-02-18] MEDS: OLANZapine 5 MG TAB PO PRN (21:10)
[2020-02-18] MEDS: NS 1,000 ML IV SCH (21:20)
[2020-02-18 22:00] VITALS: BP 116/80
[2020-02-18] MEDS ORDERED: ONDANSETRON 4 MG ORAL DISINTEGRATING TAB PO PRN (23:15)
[2020-02-19 00:58] LABS: HEMATOCRIT 34.3 % (36.0-47.0); HEMOGLOBIN 10.8 g/dl (12.0-15.5); MEAN CORPUSCULAR HEMOGLOBIN 27.7 pg (27.0-33.0); MEAN CORPUSCULAR HGB CONC 31.5 g/dl (32.0-36.5); MEAN CORPUSCULAR VOLUME 87.9 fl (80.0-96.0); PLATELET COUNT, AUTOMATED 166 10^3/uL (150-450)
[2020-02-19] MEDS: NS 1,000 ML IV SCH (05:41)
[2020-02-19 06:00] VITALS: BP 116/86
[2020-02-19 06:23] LABS: HEMATOCRIT 35.4 % (36.0-47.0); HEMOGLOBIN 10.8 g/dl (12.0-15.5); MEAN CORPUSCULAR HEMOGLOBIN 27.3 pg (27.0-33.0); MEAN CORPUSCULAR HGB CONC 30.5 g/dl (32.0-36.5); MEAN CORPUSCULAR VOLUME 89.6 fl (80.0-96.0); PLATELET COUNT, AUTOMATED 147 10^3/uL (150-450); RED BLOOD COUNT 3.95 10^6/uL (4.00-5.40); WHITE BLOOD COUNT 5.5 10^3/uL (4.0-10.0)
[2020-02-19 06:46] LABS: ALT/SGPT 21 U/L (12-78); BILIRUBIN,TOTAL 0.3 MG/DL (0.2-1.0); BLOOD UREA NITROGEN 9 MG/DL (7-18); CALCIUM LEVEL 8.2 MG/DL (8.5-10.1); CARBON DIOXIDE LEVEL 23 MEQ/L (21-32); CHLORIDE LEVEL 111 MEQ/L (98-107); CREATININE FOR GFR 0.56 MG/DL (0.55-1.30); GLOMERULAR FILTRATION RATE > 60.0 (>60); GLUCOSE, FASTING 78 MG/DL (70-100); POTASSIUM SERUM 4.3 MEQ/L (3.5-5.1); SODIUM LEVEL 143 MEQ/L (136-145)
[2020-02-19] MEDS: SENOKOT S TAB PO SCH ×2 (08:34→20:25)
[2020-02-19] MEDS: ANUSOL HC 25MG SUPP PR SCH ×2 (08:34→20:25)
[2020-02-19] MEDS: DIVALPROEX 500MG *ER* TAB PO SCH ×2 (08:34→20:25)
[2020-02-19] MEDS: ACETAMINOPHEN TAB 650MG DOSE (2X325MG) PO PRN ×2 (08:35→15:06)
[2020-02-19] MEDS ORDERED: BENZTROPINE 2 MG TAB PO SCH (09:00)
[2020-02-19 13:03] LABS: HEMOGLOBIN 11.4 g/dl (12.0-15.5); MEAN CORPUSCULAR HEMOGLOBIN 27.7 pg (27.0-33.0); MEAN CORPUSCULAR HGB CONC 30.8 g/dl (32.0-36.5); MEAN CORPUSCULAR VOLUME 89.8 fl (80.0-96.0); PLATELET COUNT, AUTOMATED 164 10^3/uL (150-450); RED BLOOD COUNT 4.12 10^6/uL (4.00-5.40); WHITE BLOOD COUNT 5.5 10^3/uL (4.0-10.0)
[2020-02-19 14:00] VITALS: BP 106/70
[2020-02-19] MEDS: OLANZapine 5 MG TAB PO PRN ×2 (15:05→20:25)
[2020-02-19] MEDS ORDERED: ANUSHCSU PR (16:21)
[2020-02-19] MEDS ORDERED: ABIL1TAB11 PO (16:21)
[2020-02-19] MEDS ORDERED: BENZ2TAB5 PO (16:21)
[2020-02-19] MEDS ORDERED: DEPA500T2 PO (16:21)
[2020-02-19] MEDS ORDERED: QUET5TAB PO (16:21)
[2020-02-19] MEDS ORDERED: SENN-52 PO (16:21)
[2020-02-19] MEDS ORDERED: MINI1CAP PO (16:21)
[2020-02-19] MEDS ORDERED: OLAN5TAB PO (16:21)
--- NOTE | 2020-02-19 17:15 | DS.PDOC ---
Discharge Summary General Date of Admission Feb 18, 2020 at 18:50 Date of Discharge 02/19/2020 Attending Physician: ALEXANDRA JENSEN MD Discharge Summary PROCEDURES PERFORMED DURING STAY: None. ADMITTING DIAGNOSES: 1. Rectal bleeding DISCHARGE DIAGNOSES: Bleeding external hemorrhoids Depression. Post-traumatic stress disorder (PTSD). Asthma. Borderline personality. PCOS. Morbid obesity. Left foot swelling 2/2 to fall in shower COMPLICATIONS/CHIEF COMPLAINT: Rectal Bleeding. HISTORY OF PRESENT ILLNESS: 19-year-old W with a history of depression, PTSD, asthma, borderline personality disorder, PCOS, morbid obesity who was admitted to the [facility] on 03-03 after being brought in by police when she contacted them stating that she attempted to kill herself by ingesting venlafaxine and naproxen, with a long history of psychiatric illness with numerous hospitalizations in the past, with episodic command auditory hallucinations. During her [facility] stay, on 02/18/20, she had had several episodes of rectal bleeding in the setting of known history of hemorrhoids and she was admitted to medicine for LGIB. HOSPITAL COURSE: On medical exam she had external hemorrhoids which was not actively bleeding at the time of examination and she was HDS and efebrile. She was started on sitz baths, Q6H CBC, anusol per rectum and itself remitted while H/H was noted to be stable. She is now being admitted back to [facility] for continued psychiatric evaluation and treatment. of note, she had various complaints including long history of L knee meniscal tear when she was 14yo that has caused much problems and was once told given a brace that did not fit well and wants a brace and requesting evaluation by orthopedics. DISCHARGE MEDICATIONS: Please see below. ALLERGIES: Please see below. PHYSICAL EXAMINATION ON DISCHARGE: VITAL SIGNS: Please see below. GENERAL: NAD, AAO x 3 HEENT: PERRLA, EOMI, MMM NECK: SUPPLE, no JVD, no lymphadenopathy CV: RRR, S1S2 normal, no murmurs/rubs/gallops RESPIRATORY: Clear to auscultation bilaterally, no rales/rhonchi/wheezes GI: obese abdomen, BS positive in 4 quadrants, soft, mild abdominal pain to mid abdomen, nondistended, no rebound or guarding, no organomegaly MUSCULOSKELETAL: No pitting extremity edema SKIN: Intact, no rashes, no lesions, no erythema NEUROLOGIC: Cranial Nerves II-XII are intact, no focal deficits PSYCHIATRIC: Mood and affect are normal LABORATORY DATA: Please see below. IMAGING: CT A/P Mild hepatosplenomegaly. 4.2 x 4.1 cm mildly complex right adnexal cystic lesion. If clinically indicated, pelvic ultrasound may be obtained for further evaluation. PROGNOSIS: Good ACTIVITY: As tolerated DIET: As tolerated. Currently on full liquid diet but may advance to regular DISCHARGE PLAN: [facility] with BID senna/colace DISPOSITION: [facility] DISCHARGE INSTRUCTIONS: 1. [facility] discharge to follow up with orthopedics as an outpatient, or to consider consulting Alfredo Curry for brace while in [facility] ITEMS TO FOLLOWUP ON ON OUTPATIENT: 1. hemorrhoids DISCHARGE CONDITION: Stable TIME SPENT ON DISCHARGE: 34 minutes. Vital Signs/I&Os Vital Signs Date Time Temp Pulse Resp B/P (MAP) Pulse Ox O2 Delivery O2 Flow Rate FiO2 02/19/20 14:00 97.9 89 20 106/70 (82) 99 Room Air I&O- Last 24 Hours up to 6 AM 02/19/20 06:00 Intake Total 1210 ml Output Total 875 ml Balance 335 ml Laboratory Data Labs 24H Laboratory Tests 2 02/18/20 19:58: Nucleated Red Blood Cells % (auto) 0.0, Lactic Acid Level 1.5 02/19/20 00:47: Nucleated Red Blood Cells % (auto) 0.0 02/19/20 05:59: Nucleated Red Blood Cells % (auto) 0.0, Anion Gap 9, Glomerular Filtration Rate > 60.0, Calcium Level 8.2L, Total Bilirubin 0.3, Aspartate Amino Transf (AST/SGOT) 24, Alanine Aminotransferase (ALT/SGPT) 21, Alkaline Phosphatase 65, Total Protein 6.0L, Albumin 3.0L, Albumin/Globulin Ratio 1.0L 02/19/20 12:47: Nucleated Red Blood Cells % (auto) 0.0 CBC/BMP Laboratory Tests 02/18/20 19:58 02/19/20 00:47 02/19/20 05:59 02/19/20 12:47 Discharge Medications Scheduled Aripiprazole (Abilify) 5 Mg Tablet, 5 MG PO DAILY Benzonatate (Tessalon Perle) 100 Mg Capsule, 100 MG PO TID, (Reported) Benztropine Mesylate (Benztropine Mesylate) 2 Mg Tablet, 2 MG PO DAILY, (Reported) Benztropine Mesylate (Benztropine Mesylate) 2 Mg Tablet, 2 MG PO DAILY Cetirizine HCl (Cetirizine HCl) 10 Mg Tablet, 10 MG PO DAILY, (Reported) Cholecalciferol (Vitamin D3) (Vitamin D3) 1,000 Unit Tablet, 1,000 UNITS PO DAILY, (Reported) HAS NOT STARTED YET Cyanocobalamin (Vitamin B-12) (Vitamin B-12) 1,000 Mcg Tablet, 1,000 MCG PO DAILY, (Reported) HAS NOT STARTED YET Divalproex Sodium (Depakote ER) 500 Mg Tab.er.24h, 500 MG PO BID Hydrocortisone Acetate (Anucort-Hc) 25 Mg Supp.rect, 25 MG SC Q12H Metformin HCl (Metformin HCl) 500 Mg Tablet, 500 MG PO TID, (Reported) Prazosin HCl (Minipress) 1 Mg Capsule, 2 MG PO QHS Quetiapine Fumarate (Quetiapine Fumarate) 50 Mg Tablet, 50 MG PO QHS Sennosides/Docusate Sodium (Senna Plus Tablet) 1 Each Tablet, 1 TAB PO BID Sucralfate (Sucralfate) 1 Gm Tablet, 1 GRAM PO ACHS, (Reported) Scheduled PRN Brompheniram/Phenylephrine/Dm (Dimetapp Cold-Cough Liquid) 118 Ml Solution, 5 ML PO TID PRN for COUGH, (Reported) HAS NOT STARTED YET Olanzapine (Olanzapine) 5 Mg Tablet, 5 MG PO Q4HP PRN for AGITATION Allergies Coded Allergies: Mushroom (Verified Allergy, Unknown, 02/13/20) Penicillins (Verified Allergy, Unknown, 02/13/20) Sulfa (Sulfonamide Antibiotics) (Verified Allergy, Unknown, 02/13/20) TURKEY (Verified Allergy, Unknown, 02/13/20) emtricitabine (Verified Allergy, Unknown, 02/13/20) latex (Verified Allergy, Unknown, 02/13/20) raltegravir (Verified Allergy, Unknown, 02/13/20) sulfamethoxazole (Verified Allergy, Unknown, 02/13/20) tomato (Verified Allergy, Unknown, 02/13/20) trimethoprim (Verified Allergy, Unknown, 02/13/20) ALEXANDRA JENSEN MD Feb 19, 2020 17:15
[2020-02-19 18:58] LABS: HEMATOCRIT 37.1 % (36.0-47.0); HEMOGLOBIN 11.6 g/dl (12.0-15.5); MEAN CORPUSCULAR HEMOGLOBIN 27.8 pg (27.0-33.0); MEAN CORPUSCULAR HGB CONC 31.3 g/dl (32.0-36.5); MEAN CORPUSCULAR VOLUME 88.8 fl (80.0-96.0); PLATELET COUNT, AUTOMATED 170 10^3/uL (150-450); RED BLOOD COUNT 4.18 10^6/uL (4.00-5.40)
[2020-02-19 20:26] VITALS: BP 112/75
[2020-02-19] MEDS: QUEtiapine FUMARATE 50 MG TAB PO SCH (20:26)
[2020-02-19] MEDS: PRAZOSIN 1 MG CAP PO SCH (20:26)
--- NOTE | 2020-02-19 21:13 | MHCR ---
DATE OF CONSULTATION: 02/19/2020 I was asked to see this patient who was in the psychiatric unit and had been admitted to the unit on 02/14/2020. She was admitted due to command auditory hallucinations telling her to harm herself. The patient was transferred to the medical unit because she was having some rectal bleeding. This actually happened yesterday and so I was asked to followup today. The patient today tells me that she still feels that she needs to go back to the psychiatric unit once she is medically stable. She is still hearing voices telling her to harm herself. We have continued her on a one-to-one sitter all along. This patient has a long-standing history of psychiatric admissions, many of them being readmissions. The patient, of note, has a significant history of borderline personality disorder and depression, possible bipolar disorder. PAST PSYCHIATRIC HISTORY: Please refer to the prior records for further details of her history. She has a history of multiple hospitalizations. MEDICAL HISTORY: She has a history of polycystic ovarian syndrome, hyperlipidemia, hypertension, and obesity. SUBSTANCE ABUSE: She does not have a history of abusing alcohol. MENTAL STATUS EXAM: The patient was alert and oriented times three. Eye contact was fair. Psychomotor activity was decreased. There was no formal thought disorder noted. She describes her mood as depressed. She is still having auditory hallucinations telling her to hurt herself. She is denying suicidal ideations. Concentration is fair. Memory is intact. Insight and judgment poor. DIAGNOSES: Other specified depressive disorder. Other specified psychotic disorder. History of post-traumatic stress disorder (PTSD). TREATMENT PLAN: At this point, the patient will be transferred to the psychiatric unit when she is stable, and we will resume the current medications that she was on prior to transfer to the medical floor.
[2020-02-19 22:00] VITALS: BP 112/75
== END 2020-02-19 22:24 ==
LOC: M MSPAV 18:50
PROVIDERS: ADMIT Internal Medicine; ATTEND Internal Medicine
DX: K64.4 Residual hemorrhoidal skin tags (principal); F32.9 Major depressive disorder, single episode, unspecified; F43.10 Post-traumatic stress disorder, unspecified; J45.909 Unspecified asthma, uncomplicated; F60.3 Borderline personality disorder; E28.2 Polycystic ovarian syndrome; E66.01 Morbid (severe) obesity due to excess calories; M79.89 Other specified soft tissue disorders; Z91.81 History of falling; M25.562 Pain in left knee; R44.0 Auditory hallucinations; E78.5 Hyperlipidemia, unspecified; Z79.899 Other long term (current) drug therapy; Z79.84 Long term (current) use of oral hypoglycemic drugs; Z88.0 Allergy status to penicillin; Z88.2 Allergy status to sulfonamides; Z88.8 Allergy status to other drugs, medicaments and biological substances; Z91.018 Allergy to other foods; Z91.040 Latex allergy status; F17.210 Nicotine dependence, cigarettes, uncomplicated
CPT/HCPCS: 36415; 74176; 80053; 83605; 85027; 96360; 96361; Q0162

== ENCOUNTER 2020-02-19 20:15 | Inpatient (IN) | payer OTHER ==
[~2020-02-19] VITALS: Ht 167.6 cm; Wt 154.5 kg
[~2020-02-19 20:15] MED LIST changes: -ALL10TAB29 PO; +ANUSHCSU PR; +CETI-24 PO; +D31000TA2 PO; +DEPA500T2 PO; +OLAN5TAB PO; +QUET5TAB PO; +SENN-52 PO; -VITAD1000T PO
[2020-02-19] MEDS ORDERED: MOM 30ML SUSPENSION UDC PO PRN (20:45)
[2020-02-19] MEDS ORDERED: MAALOX 30 ML SUSP *UDC PO PRN (20:45)
[2020-02-19] MEDS: traZODone 50 MG TAB PO PRN (23:11)
[2020-02-19] MEDS: OLANZapine ORAL DISINTEGRATING TAB 5MG PO PRN (23:11)
[2020-02-19] MEDS: ACETAMINOPHEN TAB 650MG DOSE (2X325MG) PO PRN (23:12)
[2020-02-19 23:13] VITALS: BP 119/79
[2020-02-20 06:58] VITALS: BP 126/79
[2020-02-20] MEDS: SUCRALFATE 1 GM TAB PO SCH ×4 (07:43→20:01)
[2020-02-20] MEDS: BENZTROPINE 2 MG TAB PO SCH (08:46)
[2020-02-20] MEDS: DOCUSATE SODIUM 100 MG CAP PO SCH ×2 (08:46→20:02)
[2020-02-20] MEDS: CETIRIZINE (ZyrTEC) 10 MG TAB PO SCH (08:46)
[2020-02-20] MEDS: BENZONATATE 100 MG CAP PO SCH ×3 (08:46→20:00)
[2020-02-20] MEDS: OLANZapine ORAL DISINTEGRATING TAB 5MG PO PRN ×2 (08:46→18:50)
[2020-02-20] MEDS: DIVALPROEX 500MG *ER* TAB PO SCH ×2 (08:46→20:01)
[2020-02-20] MEDS: PANTOPRAZOLE 40MG TAB (PROTONIX) PO SCH (08:46)
[2020-02-20] MEDS: CYCLOBENZAPRINE 10MG TABLET PO SCH ×2 (08:46→20:01)
[2020-02-20] MEDS: VITAMIN D 1,000 INTERNATIONAL UNITS TABLET PO SCH (08:46)
[2020-02-20] MEDS: metFORMIN (GLUCOPHAGE) 500 MG TAB PO SCH ×3 (08:47→20:01)
--- NOTE | 2020-02-20 09:36 | MHIPNPDOC ---
[facility] Progress Note Progress Note DATE OF SERVICE: 02/20/20 HISTORY: . VITAL SIGNS: See below. NEW TEST RESULTS: . CURRENT MEDICATIONS: See below. MENTAL STATUS EXAMINATION: Patient is a -year old female, who is . Speech: Is . Language skills are . Thought processes including: . Thought content: . Abstract reasoning, and computation: . Description of assoc iations: . Description of abnormal or psychotic thoughts: . Judgment: . Insight: [very limited, good, fair. poor]. Orientation: . Recent and remote memory: . Attention span and concentration: . Language: . Fund of knowledge: . Mood: . Affect: . DIAGNOSES: 1. . 2. . 3. . ASSESSMENT: MANAGEMENT PLAN: . TIME SPENT: minutes. Vital Signs Vital Signs Date Time Temp Pulse Resp B/P (MAP) Pulse Ox O2 Delivery O2 Flow Rate FiO2 02/20/20 08:44 Room Air 02/20/20 06:58 98.3 76 14 126/79 (95) Laboratory Data 24H Labs Laboratory Tests 2 02/20/20 06:28: Bedside Glucose (Misc Panel) 99 Current Medications Current Medications Medications (Trade) Dose Ordered Sig/Susy Route PRN Reason Start Time Stop Time Status Last Admin Dose Admin Acetaminophen (Tylenol Tab) 650 mg Q6HP PRN PO HEADACHE or DISCOMFORT 02/19/20 20:45 02/19/20 23:12 Al Hydrox/Mg Hydrox/Simethicone (Mylanta) 30 ml Q4HP PRN PO HEARTBURN/INDIGESTION 02/19/20 20:45 Aripiprazole (AbiLIFY) 5 mg QHS PO 02/20/20 21:00 Benzonatate (Tessalon Perles) 100 mg TID PO 02/20/20 09:00 02/20/20 08:46 Benztropine Mesylate (Cogentin) 2 mg DAILY PO 02/20/20 09:00 02/20/20 08:46 Cetirizine HCl (ZyrTEC) 10 mg DAILY PO 02/20/20 09:00 02/20/20 08:46 Cyclobenzaprine HCl (Flexeril) 10 mg BID PO 02/20/20 09:00 02/20/20 08:46 Divalproex Sodium (Depakote Er) 500 mg BID PO 02/20/20 09:00 02/20/20 08:46 Docusate Sodium (Colace) 100 mg BID PO 02/20/20 09:00 02/20/20 08:46 Magnesium Hydroxide (Milk Of Magnesia) 30 ml DAILYPRN PRN PO CONSTIPATION 02/19/20 20:45 Metformin HCl (Glucophage) 500 mg TID PO 02/20/20 09:00 02/20/20 08:47 Metoclopramide HCl (Reglan) 10 mg Q6HP PRN PO NAUSEA OR VOMITING 02/19/20 21:30 Olanzapine (ZyPREXA ZYDIS) 5 mg Q4HP PRN PO AGITATION 02/19/20 21:30 02/20/20 08:46 Pantoprazole Sodium (Protonix) 40 mg DAILY PO 02/20/20 09:00 02/20/20 08:46 Prazosin HCl (Minipress) 2 mg QHS PO 02/20/20 21:00 Quetiapine Fumarate (SEROquel) 50 mg QHSP PRN PO INSOMNIA 02/19/20 21:30 Sucralfate (Carafate) 1 gm ACHS PO 02/20/20 07:30 02/20/20 07:43 Trazodone HCl (Desyrel) 50 mg QHSP PRN PO INSOMNIA 02/19/20 20:45 02/19/20 23:11 Vitamin D (Vitamin D) 1,000 units DAILY PO 02/20/20 09:00 02/20/20 08:46 Allergies Coded Allergies: Mushroom (Verified Allergy, Unknown, 02/13/20) Penicillins (Verified Allergy, Unknown, 02/13/20) Sulfa (Sulfonamide Antibiotics) (Verified Allergy, Unknown, 02/13/20) TURKEY (Verified Allergy, Unknown, 02/13/20) emtricitabine (Verified Allergy, Unknown, 02/13/20) latex (Verified Allergy, Unknown, 02/13/20) raltegravir (Verified Allergy, Unknown, 02/13/20) sulfamethoxazole (Verified Allergy, Unknown, 02/13/20) tomato (Verified Allergy, Unknown, 02/13/20) trimethoprim (Verified Allergy, Unknown, 02/13/20) PHYLLIS RIZZO DO Feb 20, 2020 09:36
--- NOTE | 2020-02-20 09:37 | MHHPEPDOC ---
[facility] History & Physical History and Physical DATE OF ADMISSION: Feb 19, 2020 at 22:40 HPI: Bernice is seen after her readmission to [facility]. She is entirely focused on her pain in knee and possibly seeing an orthopedist. Bernice reports unable to have a brace on her knee due to it being metal. She also notes wanting to have brace and wheelchair accommodations. Bernice reports a CT scan informed that a cyst is pushing on her colon. She also notes having shots every 8 hours and informs of scar tissue. Bernice reports relapsing and having constant suicidal thoughts throughout the day. She also states telling a nurse if she could cut her leg off. Bernice reports excessive hunger due to limited consumption from liquid diet. She also informs using suppositories. MEDICATIONS: Bernice reports not taking Haldol due to possible bleeding. Sochx/fmhx and pastpsych: no changes since discharge and readmission Objective Appearance: Poor. Behavior: Pleasant. Engaged. Cooperative with good eye contact. Affect: Constricted. Mood: Euthymic. Appropriately reactive. Generally good. Speech: Normal rate. Normal volume. Cognition: Alert, Attentive, and Oriented to person, place, time. Thought Form: Suicidal thoughts. Thought Content: No evidence of aggressive or homicidal ideation. Evidence of suicidal ideation. Evidence of self harm. No evidence of delusions. Judgement: intact as evidenced by decision making in the recent past. Insight: Limited. Assessment F60.3 Borderline personality disorder F32.9 Major depressive disorder, single episode, unspecified F73 Profound intellectual disabilities Plan Patient expected length of stay 5-7 days. Patient will work on risk for suicide, ineffective coping and non-compliance. Continued home medications in conjunction with Orthopedics and hospital service. Referred to [facility] Vital Signs Vital Signs Date Time Temp Pulse Resp B/P (MAP) Pulse Ox O2 Delivery O2 Flow Rate FiO2 02/20/20 08:44 Room Air 02/20/20 06:58 98.3 76 14 126/79 (95) Laboratory Data 24H Labs Laboratory Tests 2 02/20/20 06:28: Bedside Glucose (Misc Panel) 99 FSBS Laboratory Tests Test 02/20/20 06:28 Range/Units Bedside Glucose (Misc Panel) 99 70-105 MG/DL Medications Scheduled Aripiprazole (Abilify) 5 Mg Tablet, 5 MG PO DAILY Benzonatate (Tessalon Perle) 100 Mg Capsule, 100 MG PO TID, (Reported) Benztropine Mesylate (Benztropine Mesylate) 2 Mg Tablet, 2 MG PO DAILY, (Reported) Benztropine Mesylate (Benztropine Mesylate) 2 Mg Tablet, 2 MG PO DAILY Cetirizine HCl (Cetirizine HCl) 10 Mg Tablet, 10 MG PO DAILY, (Reported) Cholecalciferol (Vitamin D3) (Vitamin D3) 1,000 Unit Tablet, 1,000 UNITS PO DAILY, (Reported) HAS NOT STARTED YET Cyanocobalamin (Vitamin B-12) (Vitamin B-12) 1,000 Mcg Tablet, 1,000 MCG PO DAILY, (Reported) HAS NOT STARTED YET Divalproex Sodium (Depakote ER) 500 Mg Tab.er.24h, 500 MG PO BID Hydrocortisone Acetate (Anucort-Hc) 25 Mg Supp.rect, 25 MG TN Q12H Metformin HCl (Metformin HCl) 500 Mg Tablet, 500 MG PO TID, (Reported) Prazosin HCl (Minipress) 1 Mg Capsule, 2 MG PO QHS Quetiapine Fumarate (Quetiapine Fumarate) 50 Mg Tablet, 50 MG PO QHS Sennosides/Docusate Sodium (Senna Plus Tablet) 1 Each Tablet, 1 TAB PO BID Sucralfate (Sucralfate) 1 Gm Tablet, 1 GRAM PO ACHS, (Reported) Scheduled PRN Brompheniram/Phenylephrine/Dm (Dimetapp Cold-Cough Liquid) 118 Ml Solution, 5 ML PO TID PRN for COUGH, (Reported) HAS NOT STARTED YET Olanzapine (Olanzapine) 5 Mg Tablet, 5 MG PO Q4HP PRN for AGITATION Allergies Coded Allergies: Mushroom (Verified Allergy, Unknown, 02/13/20) Penicillins (Verified Allergy, Unknown, 02/13/20) Sulfa (Sulfonamide Antibiotics) (Verified Allergy, Unknown, 02/13/20) TURKEY (Verified Allergy, Unknown, 02/13/20) emtricitabine (Verified Allergy, Unknown, 02/13/20) latex (Verified Allergy, Unknown, 02/13/20) raltegravir (Verified Allergy, Unknown, 02/13/20) sulfamethoxazole (Verified Allergy, Unknown, 02/13/20) tomato (Verified Allergy, Unknown, 02/13/20) trimethoprim (Verified Allergy, Unknown, 02/13/20) A-FIB/CHADSVASC A-FIB History Current/History of A-Fib/PAF?: No PHYLLIS RIZZO DO Feb 20, 2020 09:37
[2020-02-20] MEDS: ACETAMINOPHEN TAB 650MG DOSE (2X325MG) PO PRN ×2 (11:57→18:50)
[2020-02-20 16:17] VITALS: BP 128/63
--- NOTE | 2020-02-20 17:04 | HPEPDOC ---
[facility] Medical History & Physical Date of Admission Feb 20, 2020 Date of Service: Feb 20, 2020 Attending Physician: ALEXANDRA JENSEN MD History and Physical CHIEF COMPLAINT: medical consult for inpatient mental health admission HISTORY OF PRESENT ILLNESS: 19-year-old W with a history of depression, PTSD, asthma, borderline personality disorder, PCOS, morbid obesity who was originally admitted to the [facility] on 03-03 after being brought in by police when she contacted them stating that she attempted to kill herself by ingesting venlafaxine and naproxen, with a long history of psychiatric illness with numerous hospitalizations in the past, with episodic command auditory hallucinations. During her [facility] stay, on 02/18/20, she had several episodes of rectal bleeding in the setting of known history of hemorrhoids and she was admitted to medicine for LGIB. While on the medical floor she was found to have external hemorrhoids and was started on sitz baths, serial CBCs, anusol per rectum and it remitted while H/H was noted to be stable. She was then discharged back to [facility] for continued psychiatric evaluation and treatment on 02/19/20. Of note, she had various complaints including long history of L knee meniscal tear when she was 14yo that has caused much problems and was once told given a brace that did not fit well and wants a brace and requesting evaluation by orthopedics. PAST MEDICAL HISTORY: depression, PTSD, asthma, borderline personality disorder, PCOS, morbid obesity, hemorrhoids ALLERGIES: Please see below. PHYSICAL EXAMINATION ON DISCHARGE: VITAL SIGNS: Please see below. GENERAL: NAD, AAO x 3 HEENT: PERRLA, EOMI, MMM NECK: SUPPLE, no JVD, no lymphadenopathy CV: RRR, S1S2 normal, no murmurs/rubs/gallops RESPIRATORY: Clear to auscultation bilaterally, no rales/rhonchi/wheezes GI: obese abdomen, BS positive in 4 quadrants, soft, mild abdominal pain to mid abdomen, nondistended, no rebound or guarding, no organomegaly MUSCULOSKELETAL: No pitting extremity edema. Full range of motion with no crepitus in knees. SKIN: Intact, no rashes, no lesions, no erythema NEUROLOGIC: Cranial Nerves II-XII are intact, no focal deficits, normal gait PSYCHIATRIC: Mood and affect are normal LABORATORY DATA: Please see below. IMAGING: None this encounter. Assessment: 19-year-old W with a history of depression, PTSD, asthma, borderline personality disorder, PCOS, morbid obesity who was originally admitted to the [facility] on 03-03 after suicide attempt and briefly admitted to medicine for hemorrhoidial bleed who now returned to the [facility] and medicine is consulted for evaluation. Current medical issue is the L knee pain and episodic locking that she reports and she is asking for a knee brace. I will make a referral to [facility] to evaluate and fit her for a brace. 1. External hemorrhoids that recently had some bleeding -Anusol rectal suppository BID -BID senna/colace 2. Unspecified depressive disorder with suicide attempt. -Per psychiatry team 3. Post-traumatic stress disorder (PTSD)/Borderline personality disorder. -Displays attention seeking behaviors -Plan as per psychiatry team 4. Asthma. -Stable 5. PCOS. -reumed metformin 6. Morbid obesity -Recommend nutrition referral as an outpatient 7. L knee pain and history of meniscal damage requesting a brace: -Will fax a request to [facility] Curry to evaluate her. Internal medicine will sign off at this time. Vital Signs Vital Signs Date Time Temp Pulse Resp B/P (MAP) Pulse Ox O2 Delivery O2 Flow Rate FiO2 02/20/20 16:17 98.9 96 18 128/63 (84) 02/20/20 08:44 Room Air Laboratory Data Labs 24H Laboratory Tests 2 02/20/20 06:28: Bedside Glucose (Misc Panel) 99 Home Medications Scheduled Aripiprazole (Abilify) 5 Mg Tablet, 5 MG PO DAILY Benzonatate (Tessalon Perle) 100 Mg Capsule, 100 MG PO TID Benztropine Mesylate (Benztropine Mesylate) 2 Mg Tablet, 2 MG PO DAILY Benztropine Mesylate (Benztropine Mesylate) 2 Mg Tablet, 2 MG PO DAILY Cetirizine HCl (Cetirizine HCl) 10 Mg Tablet, 10 MG PO DAILY Cholecalciferol (Vitamin D3) (Vitamin D3) 1,000 Unit Tablet, 1,000 UNITS PO DAILY HAS NOT STARTED YET Cyanocobalamin (Vitamin B-12) (Vitamin B-12) 1,000 Mcg Tablet, 1,000 MCG PO DAILY HAS NOT STARTED YET Divalproex Sodium (Depakote ER) 500 Mg Tab.er.24h, 500 MG PO BID Hydrocortisone Acetate (Anucort-Hc) 25 Mg Supp.rect, 25 MG DC Q12H Metformin HCl (Metformin HCl) 500 Mg Tablet, 500 MG PO TID Prazosin HCl (Minipress) 1 Mg Capsule, 2 MG PO QHS Quetiapine Fumarate (Quetiapine Fumarate) 50 Mg Tablet, 50 MG PO QHS Sennosides/Docusate Sodium (Senna Plus Tablet) 1 Each Tablet, 1 TAB PO BID Sucralfate (Sucralfate) 1 Gm Tablet, 1 GRAM PO ACHS Scheduled PRN Brompheniram/Phenylephrine/Dm (Dimetapp Cold-Cough Liquid) 118 Ml Solution, 5 ML PO TID PRN for COUGH HAS NOT STARTED YET Olanzapine (Olanzapine) 5 Mg Tablet, 5 MG PO Q4HP PRN for AGITATION Allergies Coded Allergies: Mushroom (Verified Allergy, Unknown, 02/13/20) Penicillins (Verified Allergy, Unknown, 02/13/20) Sulfa (Sulfonamide Antibiotics) (Verified Allergy, Unknown, 02/13/20) TURKEY (Verified Allergy, Unknown, 02/13/20) emtricitabine (Verified Allergy, Unknown, 02/13/20) latex (Verified Allergy, Unknown, 02/13/20) raltegravir (Verified Allergy, Unknown, 02/13/20) sulfamethoxazole (Verified Allergy, Unknown, 02/13/20) tomato (Verified Allergy, Unknown, 02/13/20) trimethoprim (Verified Allergy, Unknown, 02/13/20) A-FIB/CHADSVASC A-FIB History Current/History of A-Fib/PAF?: No Current PO Anticoag Therapy: No Age/Risk Factor Scoring CHADSVASC: CHADSVASC Response (Comments) Value Age Risk Factor Age < 65 years old 0 Gender Risk Factor Female 1 Hx of CHF No 0 Hx of HTN No 0 Hx of Stroke/TIA/or VTE No 0 Hx of Diabetes No 0 Hx of Vascular Disease No 0 Total 1 Treatment Treatment ordered: NONE Reason Anticoagulant not given: Not indicated/[id number] ALEXANDRA JENSEN MD Feb 20, 2020 17:04
[2020-02-20] MEDS: QUEtiapine FUMARATE 50 MG TAB PO PRN (20:01)
[2020-02-20] MEDS: traZODone 50 MG TAB PO PRN (20:02)
[2020-02-20] MEDS: PRAZOSIN 1 MG CAP PO SCH (20:03)
[2020-02-21] MEDS: traMADol 50 MG TAB PO PRN ×2 (06:19→20:00)
[2020-02-21 06:38] VITALS: BP 119/64
[2020-02-21] MEDS: SUCRALFATE 1 GM TAB PO SCH ×4 (06:44→19:57)
[2020-02-21] MEDS: BENZONATATE 100 MG CAP PO SCH ×3 (08:24→19:58)
[2020-02-21] MEDS: metFORMIN (GLUCOPHAGE) 500 MG TAB PO SCH ×3 (08:24→19:58)
[2020-02-21] MEDS: PANTOPRAZOLE 40MG TAB (PROTONIX) PO SCH (08:24)
[2020-02-21] MEDS: DOCUSATE SODIUM 100 MG CAP PO SCH ×2 (08:24→19:58)
[2020-02-21] MEDS: VITAMIN D 1,000 INTERNATIONAL UNITS TABLET PO SCH (08:24)
[2020-02-21] MEDS: CYCLOBENZAPRINE 10MG TABLET PO SCH ×2 (08:24→19:58)
[2020-02-21] MEDS: BENZTROPINE 2 MG TAB PO SCH (08:24)
[2020-02-21] MEDS: CETIRIZINE (ZyrTEC) 10 MG TAB PO SCH (08:24)
[2020-02-21] MEDS: DIVALPROEX 500MG *ER* TAB PO SCH ×2 (08:25→19:56)
[2020-02-21] MEDS: OLANZapine ORAL DISINTEGRATING TAB 5MG PO PRN ×2 (09:16→20:00)
[2020-02-21] MEDS: ACETAMINOPHEN TAB 650MG DOSE (2X325MG) PO PRN (09:16)
--- NOTE | 2020-02-21 09:52 | MHIPNPDOC ---
[facility] Progress Note Progress Note DATE OF SERVICE: 02/21/20 Bernice presents today for concerns regarding a follow up. She reports that she keeps getting migraines. The patient is disheveled laying in bed. Objective Affect: Appropriate to context. Full range. Mood: Generally good. Appropriately reactive. Euthymic. Cognition: Alert, Attentive, and Oriented to person, place, time. Thought Form: Linear and goal directed. Thought Content: No evidence of aggressive or homicidal ideation. No evidence of delusions. Judgement: Poor judgement. Insight: Poor insight. Assessment F33.9 Major depressive disorder, recurrent, unspecified F60.3 Borderline personality disorder F71 Moderate intellectual disabilities Plan We will continue patients medications as current. We will continue to pursue TLS options as it appears to be the primary means of keeping her stable, especially given her long history of borderline personality disorder. It appears that TLS is our primary goal while trying to help control her agitation. We will consider a sleep aid if patient continues to be agitated at night to reduce her potential of sleep-related agitation. Vital Signs Vital Signs Date Time Temp Pulse Resp B/P (MAP) Pulse Ox O2 Delivery O2 Flow Rate FiO2 02/21/20 08:13 Room Air 02/21/20 07:02 16 02/21/20 06:38 97.6 81 119/64 (82) Current Medications Current Medications Medications (Trade) Dose Ordered Sig/Susy Route PRN Reason Start Time Stop Time Status Last Admin Dose Admin Acetaminophen (Tylenol Tab) 650 mg Q6HP PRN PO HEADACHE or DISCOMFORT 02/19/20 20:45 02/21/20 09:16 Al Hydrox/Mg Hydrox/Simethicone (Mylanta) 30 ml Q4HP PRN PO HEARTBURN/INDIGESTION 02/19/20 20:45 Aripiprazole (AbiLIFY) 5 mg QHS PO 02/20/20 21:00 02/20/20 20:01 Benzonatate (Tessalon Perles) 100 mg TID PO 02/20/20 09:00 02/21/20 08:24 Benztropine Mesylate (Cogentin) 2 mg DAILY PO 02/20/20 09:00 02/21/20 08:24 Cetirizine HCl (ZyrTEC) 10 mg DAILY PO 02/20/20 09:00 02/21/20 08:24 Cyclobenzaprine HCl (Flexeril) 10 mg BID PO 02/20/20 09:00 02/21/20 08:24 Divalproex Sodium (Depakote Er) 500 mg BID PO 02/20/20 09:00 02/21/20 08:25 Docusate Sodium (Colace) 100 mg BID PO 02/20/20 09:00 02/21/20 08:24 Magnesium Hydroxide (Milk Of Magnesia) 30 ml DAILYPRN PRN PO CONSTIPATION 02/19/20 20:45 Metformin HCl (Glucophage) 500 mg TID PO 02/20/20 09:00 02/21/20 08:24 Metoclopramide HCl (Reglan) 10 mg Q6HP PRN PO NAUSEA OR VOMITING 02/19/20 21:30 Olanzapine (ZyPREXA ZYDIS) 5 mg Q4HP PRN PO AGITATION 02/19/20 21:30 02/21/20 09:16 Pantoprazole Sodium (Protonix) 40 mg DAILY PO 02/20/20 09:00 02/21/20 08:24 Prazosin HCl (Minipress) 2 mg QHS PO 02/20/20 21:00 02/20/20 20:03 Quetiapine Fumarate (SEROquel) 50 mg QHSP PRN PO INSOMNIA 02/19/20 21:30 02/20/20 20:01 Sucralfate (Carafate) 1 gm ACHS PO 02/20/20 07:30 02/21/20 06:44 Tramadol HCl (Ultram) 50 mg Q12HP PRN PO PAIN 02/20/20 20:45 02/21/20 06:19 Trazodone HCl (Desyrel) 50 mg QHSP PRN PO INSOMNIA 02/19/20 20:45 02/20/20 20:02 Vitamin D (Vitamin D) 1,000 units DAILY PO 02/20/20 09:00 02/21/20 08:24 Allergies Coded Allergies: Mushroom (Verified Allergy, Unknown, 02/13/20) Penicillins (Verified Allergy, Unknown, 02/13/20) Sulfa (Sulfonamide Antibiotics) (Verified Allergy, Unknown, 02/13/20) TURKEY (Verified Allergy, Unknown, 02/13/20) emtricitabine (Verified Allergy, Unknown, 02/13/20) latex (Verified Allergy, Unknown, 02/13/20) raltegravir (Verified Allergy, Unknown, 02/13/20) sulfamethoxazole (Verified Allergy, Unknown, 02/13/20) tomato (Verified Allergy, Unknown, 02/13/20) trimethoprim (Verified Allergy, Unknown, 02/13/20) PHYLLIS RIZZO DO Feb 21, 2020 09:52
--- NOTE | 2020-02-21 14:19 | REP ---
RIGHT WRIST, TWO VIEWS: There is no evidence of an acute fracture, dislocation, or intrinsic bone disease. The joint spaces are unremarkable. IMPRESSION: No fracture or dislocation. Electronically Signed by Tapan Hicks MD 02/24/2020 10:21 P
[2020-02-21 16:12] VITALS: BP 111/58
[2020-02-21] MEDS: PRAZOSIN 1 MG CAP PO SCH (19:57)
[2020-02-21] MEDS: QUEtiapine FUMARATE 50 MG TAB PO PRN (21:42)
[2020-02-21] MEDS: traZODone 50 MG TAB PO PRN (21:42)
[2020-02-22 07:18] VITALS: BP 138/62
[2020-02-22] MEDS: SUCRALFATE 1 GM TAB PO SCH ×4 (07:28→20:02)
[2020-02-22] MEDS: CYCLOBENZAPRINE 10MG TABLET PO SCH ×2 (08:18→20:03)
[2020-02-22] MEDS: BENZONATATE 100 MG CAP PO SCH ×3 (08:18→20:04)
[2020-02-22] MEDS: CETIRIZINE (ZyrTEC) 10 MG TAB PO SCH (08:18)
[2020-02-22] MEDS: traMADol 50 MG TAB PO PRN ×2 (08:19→21:49)
[2020-02-22] MEDS: DOCUSATE SODIUM 100 MG CAP PO SCH ×2 (08:19→20:03)
[2020-02-22] MEDS: DIVALPROEX 500MG *ER* TAB PO SCH ×2 (08:19→20:02)
[2020-02-22] MEDS: PANTOPRAZOLE 40MG TAB (PROTONIX) PO SCH (08:19)
[2020-02-22] MEDS: BENZTROPINE 2 MG TAB PO SCH (08:19)
[2020-02-22] MEDS: VITAMIN D 1,000 INTERNATIONAL UNITS TABLET PO SCH (08:19)
[2020-02-22] MEDS: metFORMIN (GLUCOPHAGE) 500 MG TAB PO SCH ×3 (08:20→20:04)
[2020-02-22] MEDS: OLANZapine ORAL DISINTEGRATING TAB 5MG PO PRN ×2 (10:55→21:49)
[2020-02-22] MEDS: METOCLOPRAMIDE 10 MG TAB PO PRN ×2 (13:15→21:12)
[2020-02-22 16:43] VITALS: BP 117/56
[2020-02-22] MEDS ORDERED: diphenhydrAMINE 25MG CAP PO ONE (20:00)
[2020-02-22] MEDS: QUEtiapine FUMARATE 50 MG TAB PO PRN (20:03)
[2020-02-22] MEDS: traZODone 50 MG TAB PO PRN (20:03)
[2020-02-22] MEDS: PRAZOSIN 1 MG CAP PO SCH (20:05)
[2020-02-23 06:15] VITALS: BP 127/64
[2020-02-23] MEDS: SUCRALFATE 1 GM TAB PO SCH ×4 (06:42→20:02)
[2020-02-23] MEDS: PANTOPRAZOLE 40MG TAB (PROTONIX) PO SCH (08:22)
[2020-02-23] MEDS: DOCUSATE SODIUM 100 MG CAP PO SCH ×2 (08:22→20:02)
[2020-02-23] MEDS: CYCLOBENZAPRINE 10MG TABLET PO SCH ×2 (08:22→20:02)
[2020-02-23] MEDS: BENZONATATE 100 MG CAP PO SCH ×3 (08:22→20:02)
[2020-02-23] MEDS: CETIRIZINE (ZyrTEC) 10 MG TAB PO SCH (08:22)
[2020-02-23] MEDS: DIVALPROEX 500MG *ER* TAB PO SCH ×2 (08:22→20:02)
[2020-02-23] MEDS: metFORMIN (GLUCOPHAGE) 500 MG TAB PO SCH ×3 (08:22→20:02)
[2020-02-23] MEDS: VITAMIN D 1,000 INTERNATIONAL UNITS TABLET PO SCH (08:22)
[2020-02-23] MEDS: BENZTROPINE 2 MG TAB PO SCH (08:22)
[2020-02-23] MEDS ORDERED: diphenhydrAMINE 50MG CAP PO ONE ×2 (09:00→21:15)
--- NOTE | 2020-02-23 09:01 | MHIPN ---
DATE OF EVALUATION: 02/22/2020 The patient today tells me that she continues to hear voices telling her to kill herself. She says that especially now because it is the anniversary of an old boyfriend who . The patient keeps having episodes where she gets agitated but she has Zyprexa that she has been taking on an as needed basis. MENTAL STATUS EXAMINATION: This patient is alert and oriented times three. She is pleasant. She is cooperative today. She says that her mood is "not good." Affect is constricted but appropriate to her mood. She has auditory hallucinations, command type, telling her to hurt herself, but she is able to contract for safety at this point. She is denying suicidal ideations. Her concentration is fair. Her insight and judgment is poor. DIAGNOSIS: 1. Major depressive disorder, recurrent, unspecified. 2. Borderline personality disorder. 3. Moderate intellectual disability. TREATMENT PLAN: At this point, the plan will be to continue to adjust the patient's medications as needed until her hallucinations telling her to kill herself resolve. She is elias for safety at this point, and manage to try find some kind of supportive discharge setting for her such as Transitional Living Services (TLS).
[2020-02-23] MEDS: OLANZapine ORAL DISINTEGRATING TAB 5MG PO PRN ×2 (09:04→19:43)
--- NOTE | 2020-02-23 11:14 | MHIPNPDOC ---
[facility] Progress Note Progress Note DATE OF SERVICE: 02/23/20 HPI: Bernice presents today for a follow-up visit. She mentions she is still in a lot of pain and is waiting for an GI surgeon to visit her. She continues to be somatic and primarily attention seeking. Objective Appearance: Well nourished. Well groomed. Behavior: Pleasant. Cooperative with good eye contact. Engaged. Affect: Fluid affect. Mildly dysphoric and reports pain. No overt suicide reported today. Somatically focused. Speech: Normal rate. Normal volume. Insight: Poor. 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 Will ascertain whether surgery GI can address the chronic nausea. Will further determine TLS referral once the week begins. Vital Signs Vital Signs Date Time Temp Pulse Resp B/P (MAP) Pulse Ox O2 Delivery O2 Flow Rate FiO2 02/23/20 06:15 97.6 77 18 127/64 (85) 02/22/20 09:44 Room Air 02/22/20 07:18 96 Current Medications Current Medications Medications (Trade) Dose Ordered Sig/Susy Route PRN Reason Start Time Stop Time Status Last Admin Dose Admin Acetaminophen (Tylenol Tab) 650 mg Q6HP PRN PO HEADACHE or DISCOMFORT 02/19/20 20:45 02/21/20 09:16 Al Hydrox/Mg Hydrox/Simethicone (Mylanta) 30 ml Q4HP PRN PO HEARTBURN/INDIGESTION 02/19/20 20:45 02/22/20 13:16 Aripiprazole (AbiLIFY) 5 mg QHS PO 02/20/20 21:00 02/22/20 20:04 Benzonatate (Tessalon Perles) 100 mg TID PO 02/20/20 09:00 02/23/20 08:22 Benztropine Mesylate (Cogentin) 2 mg DAILY PO 02/20/20 09:00 02/23/20 08:22 Cetirizine HCl (ZyrTEC) 10 mg DAILY PO 02/20/20 09:00 02/23/20 08:22 Cyclobenzaprine HCl (Flexeril) 10 mg BID PO 02/20/20 09:00 02/23/20 08:22 Divalproex Sodium (Depakote Er) 500 mg BID PO 02/20/20 09:00 02/23/20 08:22 Docusate Sodium (Colace) 100 mg BID PO 02/20/20 09:00 02/23/20 08:22 Magnesium Hydroxide (Milk Of Magnesia) 30 ml DAILYPRN PRN PO CONSTIPATION 02/19/20 20:45 Metformin HCl (Glucophage) 500 mg TID PO 02/20/20 09:00 02/23/20 08:22 Metoclopramide HCl (Reglan) 10 mg Q6HP PRN PO NAUSEA OR VOMITING 02/19/20 21:30 02/22/20 21:12 Olanzapine (ZyPREXA ZYDIS) 5 mg Q4HP PRN PO AGITATION 02/19/20 21:30 02/23/20 09:04 Pantoprazole Sodium (Protonix) 40 mg DAILY PO 02/20/20 09:00 02/23/20 08:22 Prazosin HCl (Minipress) 2 mg QHS PO 02/20/20 21:00 02/22/20 20:05 Quetiapine Fumarate (SEROquel) 50 mg QHSP PRN PO INSOMNIA 02/19/20 21:30 02/22/20 20:03 Sucralfate (Carafate) 1 gm ACHS PO 02/20/20 07:30 02/23/20 06:42 Tramadol HCl (Ultram) 50 mg Q12HP PRN PO PAIN 02/20/20 20:45 02/22/20 21:49 Trazodone HCl (Desyrel) 50 mg QHSP PRN PO INSOMNIA 02/19/20 20:45 02/22/20 20:03 Vitamin D (Vitamin D) 1,000 units DAILY PO 02/20/20 09:00 02/23/20 08:22 Allergies Coded Allergies: Mushroom (Verified Allergy, Unknown, 02/13/20) Penicillins (Verified Allergy, Unknown, 02/13/20) Sulfa (Sulfonamide Antibiotics) (Verified Allergy, Unknown, 02/13/20) TURKEY (Verified Allergy, Unknown, 02/13/20) emtricitabine (Verified Allergy, Unknown, 02/13/20) latex (Verified Allergy, Unknown, 02/13/20) raltegravir (Verified Allergy, Unknown, 02/13/20) sulfamethoxazole (Verified Allergy, Unknown, 02/13/20) tomato (Verified Allergy, Unknown, 02/13/20) trimethoprim (Verified Allergy, Unknown, 02/13/20) PHYLLIS RIZZO DO Feb 23, 2020 11:14
[2020-02-23] MEDS: METOCLOPRAMIDE 10 MG TAB PO PRN ×2 (14:57→21:47)
--- NOTE | 2020-02-23 15:42 | IPNPDOC ---
Text Note Date of Service The patient was seen on 02/23/20. NOTE I called Dr. Cyndee Garsia of gynecology per my discussion with Ms. Carter whom on 02/21 reported pain from her R adnexal cyst and demanded to see a business systems consultant to have it removed or treated outside of pain management. I called Dr. Cyndee Garsia who recommended outpatient follow up and as a guideline they would only consider surgery in cysts over 5cm and hers is 4cm, or if they are persistent beyond three months from the original scan. Will therefore recommend gynecology follow up outpatient and Dr. Garsia expressed that she would be happy to see her in clinic. VS,Fishbone, I+O VS, Fishbone, I+O Vital Signs Date Time Temp Pulse Resp B/P (MAP) Pulse Ox O2 Delivery O2 Flow Rate FiO2 02/23/20 06:15 97.6 77 18 127/64 (85) 02/22/20 09:44 Room Air 02/22/20 07:18 96 ALEXANDRA JENSEN MD Feb 23, 2020 15:42
[2020-02-23 16:33] VITALS: BP 106/58
[2020-02-23] MEDS: traMADol 50 MG TAB PO PRN (19:44)
[2020-02-23] MEDS: QUEtiapine FUMARATE 50 MG TAB PO PRN (20:02)
[2020-02-23] MEDS: traZODone 50 MG TAB PO PRN (20:03)
[2020-02-23] MEDS: PRAZOSIN 1 MG CAP PO SCH (20:03)
[2020-02-24 06:32] VITALS: BP 134/70
[2020-02-24] MEDS: SUCRALFATE 1 GM TAB PO SCH ×4 (06:40→20:03)
[2020-02-24] MEDS: METOCLOPRAMIDE 10 MG TAB PO PRN (07:57)
[2020-02-24] MEDS: metFORMIN (GLUCOPHAGE) 500 MG TAB PO SCH ×3 (08:14→20:03)
[2020-02-24] MEDS: DOCUSATE SODIUM 100 MG CAP PO SCH ×2 (08:14→20:02)
[2020-02-24] MEDS: PANTOPRAZOLE 40MG TAB (PROTONIX) PO SCH (08:14)
[2020-02-24] MEDS: CETIRIZINE (ZyrTEC) 10 MG TAB PO SCH (08:15)
[2020-02-24] MEDS: DIVALPROEX 500MG *ER* TAB PO SCH ×2 (08:15→20:02)
[2020-02-24] MEDS: BENZONATATE 100 MG CAP PO SCH ×3 (08:15→20:02)
[2020-02-24] MEDS: VITAMIN D 1,000 INTERNATIONAL UNITS TABLET PO SCH (08:15)
[2020-02-24] MEDS: CYCLOBENZAPRINE 10MG TABLET PO SCH ×2 (08:15→20:03)
[2020-02-24] MEDS: BENZTROPINE 2 MG TAB PO SCH (08:15)
--- NOTE | 2020-02-24 15:25 | MHIPNPDOC ---
[facility] Progress Note Progress Note DATE OF SERVICE: 02/24/20 HPI: Bernice presents today for a follow up and was very tearful at the time of the appointment. She wants to be with her uncle and grandma and feels that she wants to at this point. MEDICATIONS: She states that Benadryl has been helpful in the past. Objective Appearance: Mildly dysphoric and irritable. Crying at times. Hygiene fair. Affect: Poor. Dysthymic and tearful. Speech: Spontaneous and fluid. Thought Content: Reports hopeless and suicidal thoughts. 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 Continue other medications. Continue to seek TLS referral. Vital Signs Vital Signs Date Time Temp Pulse Resp B/P (MAP) Pulse Ox O2 Delivery O2 Flow Rate FiO2 02/24/20 06:32 97.4 82 18 134/70 (91) 02/22/20 09:44 Room Air 02/22/20 07:18 96 Current Medications Current Medications Medications (Trade) Dose Ordered Sig/Susy Route PRN Reason Start Time Stop Time Status Last Admin Dose Admin Acetaminophen (Tylenol Tab) 650 mg Q6HP PRN PO HEADACHE or DISCOMFORT 02/19/20 20:45 02/21/20 09:16 Al Hydrox/Mg Hydrox/Simethicone (Mylanta) 30 ml Q4HP PRN PO HEARTBURN/INDIGESTION 02/19/20 20:45 02/22/20 13:16 Aripiprazole (AbiLIFY) 5 mg QHS PO 02/20/20 21:00 02/23/20 20:03 Benzonatate (Tessalon Perles) 100 mg TID PO 02/20/20 09:00 02/24/20 15:16 Benztropine Mesylate (Cogentin) 2 mg DAILY PO 02/20/20 09:00 02/24/20 08:15 Cetirizine HCl (ZyrTEC) 10 mg DAILY PO 02/20/20 09:00 02/24/20 08:15 Cyclobenzaprine HCl (Flexeril) 10 mg BID PO 02/20/20 09:00 02/24/20 08:15 Divalproex Sodium (Depakote Er) 500 mg BID PO 02/20/20 09:00 02/24/20 08:15 Docusate Sodium (Colace) 100 mg BID PO 02/20/20 09:00 02/24/20 08:14 Magnesium Hydroxide (Milk Of Magnesia) 30 ml DAILYPRN PRN PO CONSTIPATION 02/19/20 20:45 Metformin HCl (Glucophage) 500 mg TID PO 02/20/20 09:00 02/24/20 15:16 Metoclopramide HCl (Reglan) 10 mg Q6HP PRN PO NAUSEA OR VOMITING 02/19/20 21:30 02/24/20 07:57 Olanzapine (ZyPREXA ZYDIS) 5 mg Q4HP PRN PO AGITATION 02/19/20 21:30 02/23/20 19:43 Pantoprazole Sodium (Protonix) 40 mg DAILY PO 02/20/20 09:00 02/24/20 08:14 Prazosin HCl (Minipress) 2 mg QHS PO 02/20/20 21:00 02/23/20 20:03 Quetiapine Fumarate (SEROquel) 50 mg QHSP PRN PO INSOMNIA 02/19/20 21:30 02/23/20 20:02 Sucralfate (Carafate) 1 gm ACHS PO 02/20/20 07:30 02/24/20 12:00 Tramadol HCl (Ultram) 50 mg Q12HP PRN PO PAIN 02/20/20 20:45 02/23/20 19:44 Trazodone HCl (Desyrel) 50 mg QHSP PRN PO INSOMNIA 02/19/20 20:45 02/23/20 20:03 Vitamin D (Vitamin D) 1,000 units DAILY PO 02/20/20 09:00 02/24/20 08:15 Allergies Coded Allergies: Mushroom (Verified Allergy, Unknown, 02/13/20) Penicillins (Verified Allergy, Unknown, 02/13/20) Sulfa (Sulfonamide Antibiotics) (Verified Allergy, Unknown, 02/13/20) TURKEY (Verified Allergy, Unknown, 02/13/20) emtricitabine (Verified Allergy, Unknown, 02/13/20) latex (Verified Allergy, Unknown, 02/13/20) raltegravir (Verified Allergy, Unknown, 02/13/20) sulfamethoxazole (Verified Allergy, Unknown, 02/13/20) tomato (Verified Allergy, Unknown, 02/13/20) trimethoprim (Verified Allergy, Unknown, 02/13/20) PHYLLIS RIZZO DO Feb 24, 2020 15:25
[2020-02-24] MEDS ORDERED: OXAZEPAM 10 MG CAP PO ONE (16:00)
[2020-02-24 16:35] VITALS: BP 129/72
[2020-02-24] MEDS: traMADol 50 MG TAB PO PRN (20:02)
[2020-02-24] MEDS: OXAZEPAM 10 MG CAP PO PRN (20:02)
[2020-02-24] MEDS: PRAZOSIN 1 MG CAP PO SCH (20:02)
[2020-02-24] MEDS: QUEtiapine FUMARATE 50 MG TAB PO PRN (20:04)
[2020-02-24] MEDS: traZODone 50 MG TAB PO PRN (20:04)
[2020-02-24] MEDS: OLANZapine ORAL DISINTEGRATING TAB 5MG PO PRN (21:02)
[2020-02-25] MEDS: SUCRALFATE 1 GM TAB PO SCH ×4 (06:46→20:06)
[2020-02-25 06:53] VITALS: BP 121/55
[2020-02-25] MEDS: CETIRIZINE (ZyrTEC) 10 MG TAB PO SCH (08:19)
[2020-02-25] MEDS: DOCUSATE SODIUM 100 MG CAP PO SCH ×2 (08:19→20:06)
[2020-02-25] MEDS: VITAMIN D 1,000 INTERNATIONAL UNITS TABLET PO SCH (08:19)
[2020-02-25] MEDS: OXAZEPAM 10 MG CAP PO PRN (08:20)
[2020-02-25] MEDS: CYCLOBENZAPRINE 10MG TABLET PO SCH ×2 (08:20→20:07)
[2020-02-25] MEDS: BENZONATATE 100 MG CAP PO SCH ×3 (08:20→20:07)
[2020-02-25] MEDS: metFORMIN (GLUCOPHAGE) 500 MG TAB PO SCH ×3 (08:20→20:06)
[2020-02-25] MEDS: PANTOPRAZOLE 40MG TAB (PROTONIX) PO SCH (08:20)
[2020-02-25] MEDS: BENZTROPINE 2 MG TAB PO SCH (08:21)
[2020-02-25] MEDS: DIVALPROEX 500MG *ER* TAB PO SCH ×2 (08:21→20:07)
[2020-02-25] MEDS: traMADol 50 MG TAB PO PRN (08:22)
--- NOTE | 2020-02-25 09:24 | MHIPNPDOC ---
[facility] Progress Note Progress Note DATE OF SERVICE: 02/25/20 HPI: Bernice presents today for concerns regarding her follow up. She reports that she still has some anxiety and fleeting suicidal ideation here and there, and is still depressed about her situation where she is unable to find housing. She reports that wyatt still has difficulties with remorse from the loss of cvarious family members in the past. Objective Appearance: Well nourished. Well groomed. Affect: Dysphoric, constricted. Mood: Generally good. Dysthymic. Appropriately reactive. Cognition: Alert, Attentive, and Oriented to person, place, time. Judgement: Limited. Insight: Limited. 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 Continue to pursue TLS referral as it appears social situation is a large part of the patients presentation and will likely do well to keep her stable as she had a notable time of stability after housing was stabilized on previous admissions. Vital Signs Vital Signs Date Time Temp Pulse Resp B/P (MAP) Pulse Ox O2 Delivery O2 Flow Rate FiO2 02/25/20 08:22 18 02/25/20 06:53 98.2 83 121/55 (77) Room Air 02/22/20 07:18 96 Current Medications Current Medications Medications (Trade) Dose Ordered Sig/Susy Route PRN Reason Start Time Stop Time Status Last Admin Dose Admin Acetaminophen (Tylenol Tab) 650 mg Q6HP PRN PO HEADACHE or DISCOMFORT 02/19/20 20:45 02/21/20 09:16 Al Hydrox/Mg Hydrox/Simethicone (Mylanta) 30 ml Q4HP PRN PO HEARTBURN/INDIGESTION 02/19/20 20:45 02/22/20 13:16 Aripiprazole (AbiLIFY) 5 mg QHS PO 02/20/20 21:00 02/24/20 20:03 Benzonatate (Tessalon Perles) 100 mg TID PO 02/20/20 09:00 02/25/20 08:20 Benztropine Mesylate (Cogentin) 2 mg DAILY PO 02/20/20 09:00 02/25/20 08:21 Cetirizine HCl (ZyrTEC) 10 mg DAILY PO 02/20/20 09:00 02/25/20 08:19 Cyclobenzaprine HCl (Flexeril) 10 mg BID PO 02/20/20 09:00 02/25/20 08:20 Divalproex Sodium (Depakote Er) 500 mg BID PO 02/20/20 09:00 02/25/20 08:21 Docusate Sodium (Colace) 100 mg BID PO 02/20/20 09:00 02/25/20 08:19 Magnesium Hydroxide (Milk Of Magnesia) 30 ml DAILYPRN PRN PO CONSTIPATION 02/19/20 20:45 Metformin HCl (Glucophage) 500 mg TID PO 02/20/20 09:00 02/25/20 08:20 Metoclopramide HCl (Reglan) 10 mg Q6HP PRN PO NAUSEA OR VOMITING 02/19/20 21:30 02/24/20 07:57 Olanzapine (ZyPREXA ZYDIS) 5 mg Q4HP PRN PO AGITATION 02/19/20 21:30 02/24/20 21:02 Oxazepam (Serax) 10 mg BIDP PRN PO anxiety 02/24/20 15:30 02/25/20 08:20 Pantoprazole Sodium (Protonix) 40 mg DAILY PO 02/20/20 09:00 02/25/20 08:20 Prazosin HCl (Minipress) 2 mg QHS PO 02/20/20 21:00 02/24/20 20:02 Quetiapine Fumarate (SEROquel) 50 mg QHSP PRN PO INSOMNIA 02/19/20 21:30 02/24/20 20:04 Sucralfate (Carafate) 1 gm ACHS PO 02/20/20 07:30 02/25/20 06:46 Tramadol HCl (Ultram) 50 mg Q12HP PRN PO PAIN 02/20/20 20:45 02/25/20 08:22 Trazodone HCl (Desyrel) 50 mg QHSP PRN PO INSOMNIA 02/19/20 20:45 02/24/20 20:04 Vitamin D (Vitamin D) 1,000 units DAILY PO 02/20/20 09:00 02/25/20 08:19 Allergies Coded Allergies: Mushroom (Verified Allergy, Unknown, 02/13/20) Penicillins (Verified Allergy, Unknown, 02/13/20) Sulfa (Sulfonamide Antibiotics) (Verified Allergy, Unknown, 02/13/20) TURKEY (Verified Allergy, Unknown, 02/13/20) emtricitabine (Verified Allergy, Unknown, 02/13/20) latex (Verified Allergy, Unknown, 02/13/20) raltegravir (Verified Allergy, Unknown, 02/13/20) sulfamethoxazole (Verified Allergy, Unknown, 02/13/20) tomato (Verified Allergy, Unknown, 02/13/20) trimethoprim (Verified Allergy, Unknown, 02/13/20) PHYLLIS RIZZO DO Feb 25, 2020 09:24
[2020-02-25 15:58] VITALS: BP 164/83
[2020-02-25] MEDS: ACETAMINOPHEN TAB 650MG DOSE (2X325MG) PO PRN (17:06)
[2020-02-25] MEDS: OLANZapine ORAL DISINTEGRATING TAB 5MG PO PRN (19:00)
[2020-02-25 19:45] VITALS: BP 132/80
[2020-02-25] MEDS: traZODone 50 MG TAB PO PRN (20:06)
[2020-02-25] MEDS: PRAZOSIN 1 MG CAP PO SCH (20:07)
[2020-02-25] MEDS: QUEtiapine FUMARATE 50 MG TAB PO PRN (20:07)
[2020-02-26 06:47] VITALS: BP 122/79
[2020-02-26] MEDS: CYCLOBENZAPRINE 10MG TABLET PO SCH ×2 (08:09→20:09)
[2020-02-26] MEDS: BENZONATATE 100 MG CAP PO SCH ×3 (08:09→20:15)
[2020-02-26] MEDS: DIVALPROEX 500MG *ER* TAB PO SCH ×2 (08:10→20:13)
[2020-02-26] MEDS: SUCRALFATE 1 GM TAB PO SCH ×4 (08:10→20:09)
[2020-02-26] MEDS: VITAMIN D 1,000 INTERNATIONAL UNITS TABLET PO SCH (08:10)
[2020-02-26] MEDS: PANTOPRAZOLE 40MG TAB (PROTONIX) PO SCH (08:11)
[2020-02-26] MEDS: BENZTROPINE 2 MG TAB PO SCH (08:11)
[2020-02-26] MEDS: CETIRIZINE (ZyrTEC) 10 MG TAB PO SCH (08:11)
[2020-02-26] MEDS: DOCUSATE SODIUM 100 MG CAP PO SCH ×2 (08:11→20:13)
[2020-02-26] MEDS: metFORMIN (GLUCOPHAGE) 500 MG TAB PO SCH ×3 (08:11→20:10)
--- NOTE | 2020-02-26 08:18 | REP ---
REASON: Abdominal pain. FINDINGS: KUB shows the intestinal gas pattern to be nonspecific. The organ silhouettes insofar as delineated are unremarkable. There is no evidence of free intraperitoneal air. IMPRESSION: Nonspecific. The stool pattern is within normal limits. Electronically Signed by Zay Cochran DO 02/26/2020 11:38 A
--- NOTE | 2020-02-26 08:22 | MHIPNPDOC ---
[facility] Progress Note Progress Note DATE OF SERVICE: 02/26/20 HPI: Bernice presents today for concerns regarding her follow up. She reports that she fell asleep at around 5 AM because she had a hard time getting comfortable and heard screaming. She reports having suicidal thoughts last night. Objective Appearance: Well nourished. Well groomed. Behavior: Pleasant. Cooperative with good eye contact. Engaged. Mood: Generally good. Euthymic. Appropriately reactive. Thought Content: No evidence of aggressive or homicidal ideation. Evidence of suicidal ideation. No evidence of delusions. No thoughts of self harm. Judgement: limited judgement. Insight: limited insight. Assessment F33.9 Major depressive disorder, recurrent, unspecified F60.3 Borderline personality disorder F71 Moderate intellectual disabilities Plan Continue Oxazepam and other medications at this time. Continue to work on a TLS referral versus other housing options as is critical to maintain her stability and is likely primary motivator for presentations. Vital Signs Vital Signs Date Time Temp Pulse Resp B/P (MAP) Pulse Ox O2 Delivery O2 Flow Rate FiO2 02/26/20 06:47 97.8 92 14 122/79 (93) 100 Room Air Laboratory Data CBC/BMP Laboratory Tests 02/25/20 21:40 Current Medications Current Medications Medications (Trade) Dose Ordered Sig/Susy Route PRN Reason Start Time Stop Time Status Last Admin Dose Admin Acetaminophen (Tylenol Tab) 650 mg Q6HP PRN PO HEADACHE or DISCOMFORT 02/19/20 20:45 02/25/20 17:06 Al Hydrox/Mg Hydrox/Simethicone (Mylanta) 30 ml Q4HP PRN PO HEARTBURN/INDIGESTION 02/19/20 20:45 02/22/20 13:16 Aripiprazole (AbiLIFY) 5 mg QHS PO 02/20/20 21:00 02/25/20 20:07 Benzonatate (Tessalon Perles) 100 mg TID PO 02/20/20 09:00 02/26/20 08:09 Benztropine Mesylate (Cogentin) 2 mg DAILY PO 02/20/20 09:00 02/26/20 08:11 Cetirizine HCl (ZyrTEC) 10 mg DAILY PO 02/20/20 09:00 02/26/20 08:11 Cyclobenzaprine HCl (Flexeril) 10 mg BID PO 02/20/20 09:00 02/26/20 08:09 Divalproex Sodium (Depakote Er) 500 mg BID PO 02/20/20 09:00 02/26/20 08:10 Docusate Sodium (Colace) 100 mg BID PO 02/20/20 09:00 02/26/20 08:11 Magnesium Hydroxide (Milk Of Magnesia) 30 ml DAILYPRN PRN PO CONSTIPATION 02/19/20 20:45 Metformin HCl (Glucophage) 500 mg TID PO 02/20/20 09:00 02/26/20 08:11 Metoclopramide HCl (Reglan) 10 mg Q6HP PRN PO NAUSEA OR VOMITING 02/19/20 21:30 02/24/20 07:57 Olanzapine (ZyPREXA ZYDIS) 5 mg Q4HP PRN PO AGITATION 02/19/20 21:30 02/25/20 19:00 Oxazepam (Serax) 10 mg BIDP PRN PO anxiety 02/24/20 15:30 02/25/20 08:20 Pantoprazole Sodium (Protonix) 40 mg DAILY PO 02/20/20 09:00 02/26/20 08:11 Prazosin HCl (Minipress) 2 mg QHS PO 02/20/20 21:00 02/25/20 20:07 Quetiapine Fumarate (SEROquel) 50 mg QHSP PRN PO INSOMNIA 02/19/20 21:30 02/25/20 20:07 Sucralfate (Carafate) 1 gm ACHS PO 02/20/20 07:30 02/26/20 08:10 Tramadol HCl (Ultram) 50 mg Q12HP PRN PO PAIN 02/20/20 20:45 02/25/20 08:22 Trazodone HCl (Desyrel) 50 mg QHSP PRN PO INSOMNIA 02/19/20 20:45 02/25/20 20:06 Vitamin D (Vitamin D) 1,000 units DAILY PO 02/20/20 09:00 02/26/20 08:10 Allergies Coded Allergies: Mushroom (Verified Allergy, Unknown, 02/13/20) Penicillins (Verified Allergy, Unknown, 02/13/20) Sulfa (Sulfonamide Antibiotics) (Verified Allergy, Unknown, 02/13/20) TURKEY (Verified Allergy, Unknown, 02/13/20) emtricitabine (Verified Allergy, Unknown, 02/13/20) latex (Verified Allergy, Unknown, 02/13/20) raltegravir (Verified Allergy, Unknown, 02/13/20) sulfamethoxazole (Verified Allergy, Unknown, 02/13/20) tomato (Verified Allergy, Unknown, 02/13/20) trimethoprim (Verified Allergy, Unknown, 02/13/20) PHYLLIS RIZZO DO Feb 26, 2020 08:22
[2020-02-26] MEDS: traMADol 50 MG TAB PO PRN (11:59)
[2020-02-26] MEDS: ACETAMINOPHEN TAB 650MG DOSE (2X325MG) PO PRN (16:33)
[2020-02-26 17:29] VITALS: BP 135/81
[2020-02-26] MEDS: PRAZOSIN 1 MG CAP PO SCH (20:13)
[2020-02-26 21:10] LABS: APPEARANCE, URINE CLEAR (CLEAR); BACTERIA, URINE AUTO 1+ (NEGATIVE); BILIRUBIN, URINE AUTO NEGATIVE (NEGATIVE); BLOOD, URINE BLOOD NEGATIVE (NEGATIVE); COLOR, URINE STRAW (YELLOW); GLUCOSE, URINE (UA) AUTO NEGATIVE (NEGATIVE); KETONE, URINE AUTO NEGATIVE (NEGATIVE); LEUKOCYTE ESTERASE, URINE AUTO NEGATIVE (NEGATIVE); NITRITE, URINE AUTO NEGATIVE (NEGATIVE); PROTEIN, URINE AUTO NEGATIVE (NEGATIVE); RBC, URINE AUTO 0 /HPF (0-3); SPECIFIC GRAVITY URINE AUTO 1.003 (1.002-1.035); SQUAMOUS EPITHELIAL CELL UR AU 0 /HPF (0-6); UROBILINOGEN, URINE AUTO 0.2 mg/dL (0.0-2.0); WBC, URINE AUTO 0 /HPF (0-3)
[2020-02-26] MEDS: traZODone 50 MG TAB PO PRN (21:44)
[2020-02-26] MEDS: QUEtiapine FUMARATE 50 MG TAB PO PRN (21:44)
[2020-02-26 21:45] LABS: BASO % 0.4 % (0.0-1.0); EOS # 0.3 10^3/uL (0.0-0.5); EOS % 4.4 % (0.0-3.0); HEMATOCRIT 36.3 % (36.0-47.0); HEMOGLOBIN 11.1 g/dl (12.0-15.5); LYMPH # 2.2 10^3/uL (1.5-5.0); LYMPH % 30.7 % (24.0-44.0); MEAN CORPUSCULAR HEMOGLOBIN 27.3 pg (27.0-33.0); MEAN CORPUSCULAR HGB CONC 30.6 g/dl (32.0-36.5); MEAN CORPUSCULAR VOLUME 89.4 fl (80.0-96.0); MONO # 0.9 10^3/uL (0.0-0.8); NEUTROPHILS # 3.8 10^3/uL (1.5-8.5); NEUTROPHILS % 51.7 % (36.0-66.0); PLATELET COUNT, AUTOMATED 168 10^3/uL (150-450); RED BLOOD COUNT 4.06 10^6/uL (4.00-5.40); WHITE BLOOD COUNT 7.3 10^3/uL (4.0-10.0)
--- NOTE | 2020-02-26 22:27 | IPNPDOC ---
Text Note Date of Service The patient was seen on 02/26/20. NOTE Subjective: Patient is a 19-year-old female with a PMHx Depression, PTSD, asthma, borderline personality disorder, PCOS, morbid obesity who was originally admitted to the [facility] on 03/03 after being brought in by police when she contacted them stating that she attempted to kill herself by ingesting venlafaxine and naproxen, with a long history of psychiatric illness with numerous hospitalizations in the past, with episodic command auditory hallucinations. During her [facility] stay, on 02/18/20, she had several episodes of rectal bleeding in the setting of known history of hemorrhoids and she was admitted to medicine for LGIB. While on the medical floor she was found to have external hemorrhoids and was started on sitz baths, serial CBCs, anusol per rectum and it remitted while H/H was noted to be stable. She was then discharged back to [facility] for c ontinued psychiatric evaluation and treatment on 02/19/20. Of note, she had various complaints including long history of L knee meniscal tear when she was 14yo that has caused much problems and was once told given a brace that did not fit well and wants a brace and requesting evaluation by orthopedics. Patient was seen and examined at the bedside. Was called by nursing staff evaluate patient for right-sided "kidney pain." Patient reports that she's been having pain on the right side of her flank. Denies any other abdominal pain. No constipation or diarrhea. Denies any urinary discomfort. Does report associated nausea and vomiting. Denies chest pain, shortness of breath or palpitations. Objective: Vitals (See below) General: Lying in bed, sleeping but awoke for exam, AAOx3 HEENT: NC, AT CVS: +S1S2 Lungs: Fair air entry b/l, no appreciable wheezing, rhonchi or rales Abdomen: Soft, ND, question will tenderness around right flank Extremities: Nonpitting edema bilaterally, - Calf tenderness Assessment and plan: R flank pain - possibly 2/2 adnexal cyst - Patient does not appear to be in any distress, was asleep on arrival - Physical with mild tenderness noted at right flank - Patient is hemodynamically stable and afebrile - CBC was acquired that does not reveal any evidence of leukocytosis; hemoglobin has remained stable - UA without any evidence of infection - CT abdomen / pelvis 02/17: 1. Limited noncontrast examination. 2. Mild hepatosplenomegaly. 3. 4.2 x 4.1 cm mildly complex right adnexal cystic lesion. If clinically indicated, pelvic ultrasound may be obtained for further evaluation. 4. Additional findings, as above. - c/w Tylenol PRN - If pain fails to become controlled, consider repeat imaging - Advised continue outpatient follow up with [employer] Hx of PCOS - c/w Metformin Hospitalist service will continue to follow; VS,Fishbone, I+O VS, Fishbone, I+O Laboratory Tests 02/26/20 21:23 Vital Signs Date Time Temp Pulse Resp B/P (MAP) Pulse Ox O2 Delivery O2 Flow Rate FiO2 02/26/20 20:13 139/87 02/26/20 17:29 98.1 110 16 02/26/20 06:47 100 Room Air SACHIN VIZCARRA MD Feb 26, 2020 22:27
[2020-02-27 06:39] VITALS: BP 118/66
[2020-02-27] MEDS: SUCRALFATE 1 GM TAB PO SCH ×4 (06:48→20:02)
[2020-02-27] MEDS: CETIRIZINE (ZyrTEC) 10 MG TAB PO SCH (08:24)
[2020-02-27] MEDS: PANTOPRAZOLE 40MG TAB (PROTONIX) PO SCH (08:25)
[2020-02-27] MEDS: traMADol 50 MG TAB PO PRN ×2 (08:25→20:58)
[2020-02-27] MEDS: BENZTROPINE 2 MG TAB PO SCH (08:25)
[2020-02-27] MEDS: VITAMIN D 1,000 INTERNATIONAL UNITS TABLET PO SCH (08:25)
[2020-02-27] MEDS: DOCUSATE SODIUM 100 MG CAP PO SCH ×2 (08:25→20:01)
[2020-02-27] MEDS: metFORMIN (GLUCOPHAGE) 500 MG TAB PO SCH ×3 (08:26→20:02)
[2020-02-27] MEDS: CYCLOBENZAPRINE 10MG TABLET PO SCH ×2 (08:26→20:01)
[2020-02-27] MEDS: BENZONATATE 100 MG CAP PO SCH ×3 (08:26→20:02)
[2020-02-27] MEDS: DIVALPROEX 500MG *ER* TAB PO SCH ×2 (08:26→20:01)
--- NOTE | 2020-02-27 10:30 | MHIPNPDOC ---
[facility] Progress Note Progress Note DATE OF SERVICE: 02/27/20 Bernice presents today for a follow up. She feels that the medication is helping, but she is getting multiple migraines at night from the screaming. Care management thinks that TLS is the best option for her along with case management. TLS is the best thing to do for cognitive stability. Objective Appearance: Well nourished. Patient appears normal and engaged. Interested in hygiene. Has fair judgement. Well groomed. Behavior: Cooperative with good eye contact. Pleasant. Engaged. Speech: Normal rate. Normal volume. Thought Content: No thoughts of self harm. No evidence of delusions. No evidence of suicidal ideation. No evidence of aggressive or homicidal ideation. Judgement: intact as evidenced by decision making in the recent past. Assessment F33.9 Major depressive disorder, recurrent, unspecified F60.3 Borderline personality disorder F71 Moderate intellectual disabilities Plan The plan is to continue Oxazepam at this time and othr medications. We will attempt to add to diet as patient wants to try food again and limit on the quick eating habit. We will continue to observe will and TLS because it is curry to her stability. Vital Signs Vital Signs Date Time Temp Pulse Resp B/P (MAP) Pulse Ox O2 Delivery O2 Flow Rate FiO2 02/27/20 08:55 16 02/27/20 08:21 Room Air 02/27/20 06:39 97.7 79 118/66 (83) 99 Laboratory Data 24H Labs Laboratory Tests 2 02/26/20 21:00: Urine Color STRAW, Urine Appearance CLEAR, Urine pH 7.0, Urine Specific [place] 1.003, Urine Protein NEGATIVE, Urine Glucose (Auto)(UA) NEGATIVE, Urine Ketones (Auto) NEGATIVE, Urine Blood NEGATIVE, Urine Nitrite NEGATIVE, Urine Bilirubin NEGATIVE, Urine Urobilinogen 0.2, Urine Leukocyte Esterase (Auto) NEGATIVE, Urine WBC (Auto) 0, Urine RBC (Auto) 0, Urine Hyaline Casts (Auto) 0, Urine Bacteria (Auto) 1+H, Urine Squamous Epithelial Cells 0, Urine Sperm (Auto) 02/26/20 21:23: Immature Granulocyte % (Auto) 0.8, Neutrophils (%) (Auto) 51.7, Lymphocytes (%) (Auto) 30.7, Monocytes (%) (Auto) 12.0H, Eosinophils (%) (Auto) 4.4H, Basophils (%) (Auto) 0.4, Neutrophils # (Auto) 3.8, Lymphocytes # (Auto) 2.2, Monocytes # (Auto) 0.9H, Eosinophils # (Auto) 0.3, Basophils # (Auto) 0.0, Nucleated Red Blood Cells % (auto) 0.0 CBC/BMP Laboratory Tests 02/26/20 21:23 Current Medications Current Medications Medications (Trade) Dose Ordered Sig/Susy Route PRN Reason Start Time Stop Time Status Last Admin Dose Admin Acetaminophen (Tylenol Tab) 650 mg Q6HP PRN PO HEADACHE or DISCOMFORT 02/19/20 20:45 02/26/20 16:33 Al Hydrox/Mg Hydrox/Simethicone (Mylanta) 30 ml Q4HP PRN PO HEARTBURN/INDIGESTION 02/19/20 20:45 02/22/20 13:16 Aripiprazole (AbiLIFY) 5 mg QHS PO 02/20/20 21:00 02/26/20 20:13 Benzonatate (Tessalon Perles) 100 mg TID PO 02/20/20 09:00 02/27/20 08:26 Benztropine Mesylate (Cogentin) 2 mg DAILY PO 02/20/20 09:00 02/27/20 08:25 Cetirizine HCl (ZyrTEC) 10 mg DAILY PO 02/20/20 09:00 02/27/20 08:24 Cyclobenzaprine HCl (Flexeril) 10 mg BID PO 02/20/20 09:00 02/27/20 08:26 Divalproex Sodium (Depakote Er) 500 mg BID PO 02/20/20 09:00 02/27/20 08:26 Docusate Sodium (Colace) 100 mg BID PO 02/20/20 09:00 02/27/20 08:25 Magnesium Hydroxide (Milk Of Magnesia) 30 ml DAILYPRN PRN PO CONSTIPATION 02/19/20 20:45 Metformin HCl (Glucophage) 500 mg TID PO 02/20/20 09:00 02/27/20 08:26 Metoclopramide HCl (Reglan) 10 mg Q6HP PRN PO NAUSEA OR VOMITING 02/19/20 21:30 02/24/20 07:57 Olanzapine (ZyPREXA ZYDIS) 5 mg Q4HP PRN PO AGITATION 02/19/20 21:30 02/25/20 19:00 Oxazepam (Serax) 10 mg BIDP PRN PO anxiety 02/24/20 15:30 02/25/20 08:20 Pantoprazole Sodium (Protonix) 40 mg DAILY PO 02/20/20 09:00 02/27/20 08:25 Prazosin HCl (Minipress) 2 mg QHS PO 02/20/20 21:00 02/26/20 20:13 Quetiapine Fumarate (SEROquel) 50 mg QHSP PRN PO INSOMNIA 02/19/20 21:30 02/26/20 21:44 Sucralfate (Carafate) 1 gm ACHS PO 02/20/20 07:30 02/27/20 06:48 Tramadol HCl (Ultram) 50 mg Q12HP PRN PO PAIN 02/20/20 20:45 02/27/20 08:25 Trazodone HCl (Desyrel) 50 mg QHSP PRN PO INSOMNIA 02/19/20 20:45 02/26/20 21:44 Vitamin D (Vitamin D) 1,000 units DAILY PO 02/20/20 09:00 02/27/20 08:25 Allergies Coded Allergies: Mushroom (Verified Allergy, Unknown, 02/13/20) Penicillins (Verified Allergy, Unknown, 02/13/20) Sulfa (Sulfonamide Antibiotics) (Verified Allergy, Unknown, 02/13/20) TURKEY (Verified Allergy, Unknown, 02/13/20) emtricitabine (Verified Allergy, Unknown, 02/13/20) latex (Verified Allergy, Unknown, 02/13/20) raltegravir (Verified Allergy, Unknown, 02/13/20) sulfamethoxazole (Verified Allergy, Unknown, 02/13/20) tomato (Verified Allergy, Unknown, 02/13/20) trimethoprim (Verified Allergy, Unknown, 02/13/20) PHYLLIS RIZZO DO Feb 27, 2020 10:30
[2020-02-27] MEDS: ACETAMINOPHEN TAB 650MG DOSE (2X325MG) PO PRN ×2 (13:02→19:44)
[2020-02-27] MEDS: OLANZapine ORAL DISINTEGRATING TAB 5MG PO PRN (15:23)
[2020-02-27 17:24] VITALS: BP 127/70
[2020-02-27] MEDS: QUEtiapine FUMARATE 50 MG TAB PO PRN (20:01)
[2020-02-27] MEDS: PRAZOSIN 1 MG CAP PO SCH (20:01)
[2020-02-27] MEDS: traZODone 50 MG TAB PO PRN (20:02)
[2020-02-28] MEDS: SUCRALFATE 1 GM TAB PO SCH ×4 (06:47→20:50)
[2020-02-28 06:49] VITALS: BP 107/71
--- NOTE | 2020-02-28 07:46 | MHIPNPDOC ---
[facility] Progress Note Progress Note DATE OF SERVICE: 02/28/20 HISTORY: . VITAL SIGNS: See below. NEW TEST RESULTS: . CURRENT MEDICATIONS: See below. MENTAL STATUS EXAMINATION: Patient is a -year old female, who is . Speech: Is . Language skills are . Thought processes including: . Thought content: . Abstract reasoning, and computation: . Description of asso ciations: . Description of abnormal or psychotic thoughts: . Judgment: . Insight: [very limited, good, fair. poor]. Orientation: . Recent and remote memory: . Attention span and concentration: . Language: . Fund of knowledge: . Mood: . Affect: . DIAGNOSES: 1. . 2. . 3. . ASSESSMENT: MANAGEMENT PLAN: . TIME SPENT: minutes. Vital Signs Vital Signs Date Time Temp Pulse Resp B/P (MAP) Pulse Ox O2 Delivery O2 Flow Rate FiO2 02/28/20 06:49 98.2 84 14 107/71 (83) 97 Room Air Current Medications Current Medications Medications (Trade) Dose Ordered Sig/Susy Route PRN Reason Start Time Stop Time Status Last Admin Dose Admin Acetaminophen (Tylenol Tab) 650 mg Q6HP PRN PO HEADACHE or DISCOMFORT 02/19/20 20:45 02/27/20 19:44 Al Hydrox/Mg Hydrox/Simethicone (Mylanta) 30 ml Q4HP PRN PO HEARTBURN/INDIGESTION 02/19/20 20:45 02/22/20 13:16 Aripiprazole (AbiLIFY) 5 mg QHS PO 02/20/20 21:00 02/27/20 20:02 Benzonatate (Tessalon Perles) 100 mg TID PO 02/20/20 09:00 02/27/20 20:02 Benztropine Mesylate (Cogentin) 2 mg DAILY PO 02/20/20 09:00 02/27/20 08:25 Cetirizine HCl (ZyrTEC) 10 mg DAILY PO 02/20/20 09:00 02/27/20 08:24 Cyclobenzaprine HCl (Flexeril) 10 mg BID PO 02/20/20 09:00 02/27/20 20:01 Divalproex Sodium (Depakote Er) 500 mg BID PO 02/20/20 09:00 02/27/20 20:01 Docusate Sodium (Colace) 100 mg BID PO 02/20/20 09:00 02/27/20 20:01 Magnesium Hydroxide (Milk Of Magnesia) 30 ml DAILYPRN PRN PO CONSTIPATION 02/19/20 20:45 Metformin HCl (Glucophage) 500 mg TID PO 02/20/20 09:00 02/27/20 20:02 Metoclopramide HCl (Reglan) 10 mg Q6HP PRN PO NAUSEA OR VOMITING 02/19/20 21:30 02/24/20 07:57 Olanzapine (ZyPREXA ZYDIS) 5 mg Q4HP PRN PO AGITATION 02/19/20 21:30 02/27/20 15:23 Oxazepam (Serax) 10 mg BIDP PRN PO anxiety 02/24/20 15:30 02/25/20 08:20 Pantoprazole Sodium (Protonix) 40 mg DAILY PO 02/20/20 09:00 02/27/20 08:25 Prazosin HCl (Minipress) 2 mg QHS PO 02/20/20 21:00 02/27/20 20:01 Quetiapine Fumarate (SEROquel) 50 mg QHSP PRN PO INSOMNIA 02/19/20 21:30 02/27/20 20:01 Sucralfate (Carafate) 1 gm ACHS PO 02/20/20 07:30 02/28/20 06:47 Tramadol HCl (Ultram) 50 mg Q12HP PRN PO PAIN 02/20/20 20:45 02/27/20 20:58 Trazodone HCl (Desyrel) 50 mg QHSP PRN PO INSOMNIA 02/19/20 20:45 02/27/20 20:02 Vitamin D (Vitamin D) 1,000 units DAILY PO 02/20/20 09:00 02/27/20 08:25 Allergies Coded Allergies: Mushroom (Verified Allergy, Unknown, 02/13/20) Penicillins (Verified Allergy, Unknown, 02/13/20) Sulfa (Sulfonamide Antibiotics) (Verified Allergy, Unknown, 02/13/20) TURKEY (Verified Allergy, Unknown, 02/13/20) emtricitabine (Verified Allergy, Unknown, 02/13/20) latex (Verified Allergy, Unknown, 02/13/20) raltegravir (Verified Allergy, Unknown, 02/13/20) sulfamethoxazole (Verified Allergy, Unknown, 02/13/20) tomato (Verified Allergy, Unknown, 02/13/20) trimethoprim (Verified Allergy, Unknown, 02/13/20) PHYLLIS RIZZO DO Feb 28, 2020 07:46
[2020-02-28] MEDS: metFORMIN (GLUCOPHAGE) 500 MG TAB PO SCH ×3 (07:58→20:51)
[2020-02-28] MEDS: PANTOPRAZOLE 40MG TAB (PROTONIX) PO SCH (07:58)
[2020-02-28] MEDS: BENZTROPINE 2 MG TAB PO SCH (07:58)
[2020-02-28] MEDS: DOCUSATE SODIUM 100 MG CAP PO SCH ×2 (07:58→20:49)
[2020-02-28] MEDS: BENZONATATE 100 MG CAP PO SCH ×3 (07:58→20:54)
[2020-02-28] MEDS: CYCLOBENZAPRINE 10MG TABLET PO SCH ×2 (07:58→20:51)
[2020-02-28] MEDS: CETIRIZINE (ZyrTEC) 10 MG TAB PO SCH (07:59)
[2020-02-28] MEDS: DIVALPROEX 500MG *ER* TAB PO SCH ×2 (07:59→20:50)
[2020-02-28] MEDS: VITAMIN D 1,000 INTERNATIONAL UNITS TABLET PO SCH (07:59)
[2020-02-28] MEDS: OXAZEPAM 10 MG CAP PO PRN (15:47)
[2020-02-28 18:27] VITALS: BP 138/83
[2020-02-28] MEDS: traZODone 50 MG TAB PO PRN (20:48)
[2020-02-28] MEDS: PRAZOSIN 1 MG CAP PO SCH (20:49)
[2020-02-28] MEDS: QUEtiapine FUMARATE 50 MG TAB PO PRN (20:50)
[2020-02-28] MEDS: traMADol 50 MG TAB PO PRN (20:53)
[2020-02-29 06:21] VITALS: BP 127/55
[2020-02-29] MEDS: SUCRALFATE 1 GM TAB PO SCH ×4 (06:44→20:26)
[2020-02-29] MEDS: CETIRIZINE (ZyrTEC) 10 MG TAB PO SCH (08:46)
[2020-02-29] MEDS: DOCUSATE SODIUM 100 MG CAP PO SCH ×2 (08:47→20:26)
[2020-02-29] MEDS: BENZONATATE 100 MG CAP PO SCH ×3 (08:47→20:27)
[2020-02-29] MEDS: DIVALPROEX 500MG *ER* TAB PO SCH ×2 (08:47→20:26)
[2020-02-29] MEDS: VITAMIN D 1,000 INTERNATIONAL UNITS TABLET PO SCH (08:47)
[2020-02-29] MEDS: PANTOPRAZOLE 40MG TAB (PROTONIX) PO SCH (08:47)
[2020-02-29] MEDS: metFORMIN (GLUCOPHAGE) 500 MG TAB PO SCH ×3 (08:47→20:26)
[2020-02-29] MEDS: CYCLOBENZAPRINE 10MG TABLET PO SCH ×2 (08:47→20:26)
[2020-02-29] MEDS: BENZTROPINE 2 MG TAB PO SCH (08:48)
[2020-02-29 18:06] VITALS: BP 125/80
[2020-02-29] MEDS: PRAZOSIN 1 MG CAP PO SCH (20:26)
[2020-02-29] MEDS: traZODone 50 MG TAB PO PRN (20:26)
[2020-02-29] MEDS: QUEtiapine FUMARATE 50 MG TAB PO PRN (20:26)
[2020-02-29 21:44] LABS: BASO % 0.3 % (0.0-1.0); EOS # 0.3 10^3/uL (0.0-0.5); EOS % 4.1 % (0.0-3.0); HEMATOCRIT 35.1 % (36.0-47.0); LYMPH # 1.8 10^3/uL (1.5-5.0); LYMPH % 26.5 % (24.0-44.0); MEAN CORPUSCULAR HEMOGLOBIN 27.9 pg (27.0-33.0); MEAN CORPUSCULAR HGB CONC 31.3 g/dl (32.0-36.5); MEAN CORPUSCULAR VOLUME 89.1 fl (80.0-96.0); MONO # 0.6 10^3/uL (0.0-0.8); MONO % 8.6 % (0.0-5.0); NEUTROPHILS # 4.1 10^3/uL (1.5-8.5); NEUTROPHILS % 59.9 % (36.0-66.0); PLATELET COUNT, AUTOMATED 167 10^3/uL (150-450); RED BLOOD COUNT 3.94 10^6/uL (4.00-5.40); WHITE BLOOD COUNT 6.8 10^3/uL (4.0-10.0)
--- NOTE | 2020-02-29 21:50 | MHIPN ---
DATE: 02/29/2020 The patient today tells me that she continues to hear the screaming in her head. She tells me that it sounds like her father screaming at her. She denies hearing the voices that were telling her to hurt herself, though, and she is not having suicidal thoughts. MENTAL STATUS EXAM: She appears to be at baseline. She is alert and oriented times three. Eye contact is fair. Psychomotor activity is decreased. She says her mood is sad. Affect is constricted and appropriate to mood. She says she is hearing screaming in her head. It is not clear whether these are actual hallucinations or not in this patient. She denies suicidal or homicidal ideation. She denies command auditory hallucinations telling her to hurt herself. Concentration is fair. Memory intact. Insight and judgment poor. DIAGNOSES: Major depressive disorder, recurrent, unspecified. Borderline personality disorder. Moderate intellectual disability. TREATMENT PLAN: At this point, we will continue to monitor the patient for these reported screaming noises. I am not sure if these are real hallucinations or not. She is not having the command hallucinations to hurt herself. She was just started on oxazepam, and we will continue to titrate her medications as indicated.
[2020-03-01 06:31] VITALS: BP 116/63
[2020-03-01] MEDS: SUCRALFATE 1 GM TAB PO SCH ×4 (07:09→20:36)
[2020-03-01] MEDS: PANTOPRAZOLE 40MG TAB (PROTONIX) PO SCH (08:44)
[2020-03-01] MEDS: DOCUSATE SODIUM 100 MG CAP PO SCH ×2 (08:44→20:35)
[2020-03-01] MEDS: metFORMIN (GLUCOPHAGE) 500 MG TAB PO SCH ×3 (08:45→20:35)
[2020-03-01] MEDS: CYCLOBENZAPRINE 10MG TABLET PO SCH ×2 (08:45→20:35)
[2020-03-01] MEDS: VITAMIN D 1,000 INTERNATIONAL UNITS TABLET PO SCH (08:45)
[2020-03-01] MEDS: BENZTROPINE 2 MG TAB PO SCH (08:45)
[2020-03-01] MEDS: DIVALPROEX 500MG *ER* TAB PO SCH ×2 (08:45→20:35)
[2020-03-01] MEDS: CETIRIZINE (ZyrTEC) 10 MG TAB PO SCH (08:45)
[2020-03-01] MEDS: BENZONATATE 100 MG CAP PO SCH ×3 (08:46→21:00)
[2020-03-01 15:41] VITALS: BP 116/64
[2020-03-01] MEDS: PRAZOSIN 1 MG CAP PO SCH (20:36)
[2020-03-01] MEDS: traZODone 50 MG TAB PO PRN (20:38)
[2020-03-01] MEDS: traMADol 50 MG TAB PO PRN (20:38)
[2020-03-01] MEDS: QUEtiapine FUMARATE 50 MG TAB PO PRN (20:39)
[2020-03-01] MEDS: ACETAMINOPHEN TAB 650MG DOSE (2X325MG) PO PRN (21:16)
[2020-03-02 06:29] VITALS: BP 120/67
[2020-03-02] MEDS: SUCRALFATE 1 GM TAB PO SCH ×4 (06:29→20:45)
[2020-03-02] MEDS: CYCLOBENZAPRINE 10MG TABLET PO SCH ×2 (08:46→20:45)
[2020-03-02] MEDS: VITAMIN D 1,000 INTERNATIONAL UNITS TABLET PO SCH (08:46)
[2020-03-02] MEDS: metFORMIN (GLUCOPHAGE) 500 MG TAB PO SCH ×3 (08:46→20:45)
[2020-03-02] MEDS: CETIRIZINE (ZyrTEC) 10 MG TAB PO SCH (08:46)
[2020-03-02] MEDS: BENZTROPINE 2 MG TAB PO SCH (08:46)
[2020-03-02] MEDS: ACETAMINOPHEN TAB 650MG DOSE (2X325MG) PO PRN ×2 (08:47→20:44)
[2020-03-02] MEDS: PANTOPRAZOLE 40MG TAB (PROTONIX) PO SCH (08:47)
[2020-03-02] MEDS: DOCUSATE SODIUM 100 MG CAP PO SCH ×2 (08:47→20:45)
[2020-03-02] MEDS: BENZONATATE 100 MG CAP PO SCH ×3 (08:47→21:00)
[2020-03-02] MEDS: DIVALPROEX 500MG *ER* TAB PO SCH ×2 (08:47→20:44)
[2020-03-02 16:21] VITALS: BP 130/68
[2020-03-02] MEDS: traMADol 50 MG TAB PO PRN (16:35)
[2020-03-02] MEDS: traZODone 50 MG TAB PO PRN (20:44)
[2020-03-02] MEDS: PRAZOSIN 1 MG CAP PO SCH (20:44)
[2020-03-02] MEDS: QUEtiapine FUMARATE 50 MG TAB PO PRN (20:45)
[2020-03-03 06:25] VITALS: BP 102/54
[2020-03-03] MEDS: SUCRALFATE 1 GM TAB PO SCH ×4 (06:52→20:23)
[2020-03-03] MEDS: BENZONATATE 100 MG CAP PO SCH ×3 (09:00→21:00)
[2020-03-03] MEDS: PANTOPRAZOLE 40MG TAB (PROTONIX) PO SCH (09:09)
[2020-03-03] MEDS: metFORMIN (GLUCOPHAGE) 500 MG TAB PO SCH ×3 (09:09→20:23)
[2020-03-03] MEDS: BENZTROPINE 2 MG TAB PO SCH (09:09)
[2020-03-03] MEDS: DOCUSATE SODIUM 100 MG CAP PO SCH ×2 (09:09→21:00)
[2020-03-03] MEDS: DIVALPROEX 500MG *ER* TAB PO SCH ×2 (09:09→20:23)
[2020-03-03] MEDS: CETIRIZINE (ZyrTEC) 10 MG TAB PO SCH (09:09)
[2020-03-03] MEDS: VITAMIN D 1,000 INTERNATIONAL UNITS TABLET PO SCH (09:09)
[2020-03-03] MEDS: CYCLOBENZAPRINE 10MG TABLET PO SCH ×2 (09:09→20:23)
[2020-03-03] MEDS: ACETAMINOPHEN TAB 650MG DOSE (2X325MG) PO PRN ×2 (16:03→22:36)
[2020-03-03 16:10] VITALS: BP 117/66
[2020-03-03] MEDS: traZODone 50 MG TAB PO PRN (20:23)
[2020-03-03] MEDS: OLANZapine ORAL DISINTEGRATING TAB 5MG PO PRN (20:23)
[2020-03-03] MEDS: QUEtiapine FUMARATE 50 MG TAB PO PRN (20:23)
[2020-03-03] MEDS: traMADol 50 MG TAB PO PRN (20:25)
[2020-03-03] MEDS: PRAZOSIN 1 MG CAP PO SCH (20:27)
[2020-03-03] MEDS: METOCLOPRAMIDE 10 MG TAB PO PRN (21:14)
[2020-03-04 06:29] VITALS: BP 130/63
[2020-03-04] MEDS: SUCRALFATE 1 GM TAB PO SCH ×5 (07:04→22:37)
[2020-03-04 07:39] LABS: BASO % 0.4 % (0.0-1.0); EOS # 0.3 10^3/uL (0.0-0.5); EOS % 5.2 % (0.0-3.0); HEMATOCRIT 34.3 % (36.0-47.0); HEMOGLOBIN 10.6 g/dl (12.0-15.5); LYMPH # 1.5 10^3/uL (1.5-5.0); LYMPH % 29.3 % (24.0-44.0); MEAN CORPUSCULAR HEMOGLOBIN 27.7 pg (27.0-33.0); MEAN CORPUSCULAR HGB CONC 30.9 g/dl (32.0-36.5); MEAN CORPUSCULAR VOLUME 89.6 fl (80.0-96.0); MONO # 0.6 10^3/uL (0.0-0.8); MONO % 11.6 % (0.0-5.0); NEUTROPHILS # 2.7 10^3/uL (1.5-8.5); NEUTROPHILS % 52.9 % (36.0-66.0); PLATELET COUNT, AUTOMATED 149 10^3/uL (150-450); RED BLOOD COUNT 3.83 10^6/uL (4.00-5.40); WHITE BLOOD COUNT 5.2 10^3/uL (4.0-10.0)
[2020-03-04 08:06] LABS: ALBUMIN 3.2 GM/DL (3.2-5.2); ALT/SGPT 18 U/L (12-78); BILIRUBIN,TOTAL 0.4 MG/DL (0.2-1.0); BLOOD UREA NITROGEN 4 MG/DL (7-18); C REACTIVE PROTEIN QUANTITATIV < 0.30 MG/DL (0.00-0.30); CALCIUM LEVEL 8.3 MG/DL (8.5-10.1); CARBON DIOXIDE LEVEL 31 MEQ/L (21-32); CHLORIDE LEVEL 108 MEQ/L (98-107); CREATININE FOR GFR 0.58 MG/DL (0.55-1.30); GLOMERULAR FILTRATION RATE > 60.0 (>60); GLUCOSE, FASTING 74 MG/DL (70-100); MAGNESIUM LEVEL 2.1 MG/DL (1.8-2.4); POTASSIUM SERUM 3.8 MEQ/L (3.5-5.1); SODIUM LEVEL 140 MEQ/L (136-145); TOTAL PROTEIN 6.1 GM/DL (6.4-8.2)
[2020-03-04] MEDS: DIVALPROEX 500MG *ER* TAB PO SCH ×3 (08:17→22:37)
[2020-03-04] MEDS: BENZTROPINE 2 MG TAB PO SCH (08:17)
[2020-03-04] MEDS: CETIRIZINE (ZyrTEC) 10 MG TAB PO SCH (08:17)
[2020-03-04] MEDS: VITAMIN D 1,000 INTERNATIONAL UNITS TABLET PO SCH (08:17)
[2020-03-04] MEDS: BENZONATATE 100 MG CAP PO SCH ×3 (08:17→21:00)
[2020-03-04] MEDS: metFORMIN (GLUCOPHAGE) 500 MG TAB PO SCH ×4 (08:17→22:39)
[2020-03-04] MEDS: CYCLOBENZAPRINE 10MG TABLET PO SCH ×3 (08:17→22:39)
[2020-03-04] MEDS: PANTOPRAZOLE 40MG TAB (PROTONIX) PO SCH (08:17)
[2020-03-04] MEDS: DOCUSATE SODIUM 100 MG CAP PO SCH ×2 (08:17→21:00)
[2020-03-04 11:08] LABS: HCG, SERUM QUALITATIVE NEGATIVE (NEGATIVE)
[2020-03-04] MEDS: DOXYCYCLINE HYCLATE 100MG TABLET PO SCH ×3 (15:10→22:39)
[2020-03-04 16:11] VITALS: BP 125/92
--- NOTE | 2020-03-04 18:18 | REPVR ---
PROCEDURE INFORMATION: Exam: US Abdomen, Limited; Right Upper Quadrant Exam date and time: 03/04/2020 6:09 PM Age: 19 years old Clinical indication: Abdominal pain; Epigastric; Additional info: Ruq abd pain biliary colic R/O gallstones TECHNIQUE: Imaging protocol: US abdomen. Real time ultrasound with image documentation. Limited exam focused on the right upper quadrant. COMPARISON: Abdomen, limited US 11/15/2019 8:44 PM FINDINGS: Liver: Mildly echogenic, consistent with fatty infiltration. Gallbladder: No gallstones. No gallbladder wall thickening or pericholecystic fluid. Negative sonographic Dickson's sign, as per the performing visual merchandising assistant. Common bile duct: No stones. No ductal dilatation. Pancreas: Unremarkable as visualized. Right kidney: No mass. No definite stones. No hydronephrosis. IMPRESSION: Fatty liver. Electronically signed by: Satish Osuna On 03/04/2020 18:18:19 PM
[2020-03-04] MEDS: PRAZOSIN 1 MG CAP PO SCH ×2 (21:00→22:38)
[2020-03-04] MEDS: ONDANSETRON 4 MG ORAL DISINTEGRATING TAB PO PRN (22:16)
[2020-03-04] MEDS: traZODone 50 MG TAB PO PRN (22:38)
[2020-03-04] MEDS: QUEtiapine FUMARATE 50 MG TAB PO PRN (22:38)
[2020-03-04] MEDS: OLANZapine ORAL DISINTEGRATING TAB 5MG PO PRN (23:16)
--- NOTE | 2020-03-05 00:21 | MHIPN ---
DATE: 03/03/2020 The patient today complains that she is having pain in her ankle. She tells me that she is still hearing the screaming in her head. She is no longer hearing any command hallucinations to hurt herself. She is denying suicidal thoughts. MENTAL STATUS EXAM: The patient is alert, oriented times three. Eye contact is fair. Psychomotor activity is decreased. There is no formal thought disorder noted. She says her mood is "no good." Affect is appropriate to mood. She keeps complaining of hearing the screaming in her head but no command hallucinations to hurt herself today. She denies suicidal or homicidal ideations. Concentration is fair. Memory is intact. Insight and judgment is poor. DIAGNOSIS: Major depressive disorder, recurrent, unspecified. Borderline personality disorder and moderate intellectual disability. TREATMENT PLAN: At this point, the patient continues to complain of hearing screaming in her head. I am not quite sure if these are actual hallucinations, but we will continue to monitor the patient for this. She is not having suicidal thoughts today. We will continue to titrate her medications as indicated. At this point, we are looking at trying to place the [facility], which would be a structured setting.
[2020-03-05 06:25] VITALS: BP 135/80
[2020-03-05] MEDS: SUCRALFATE 1 GM TAB PO SCH ×4 (06:41→21:55)
[2020-03-05 08:02] LABS: CHOLESTEROL RISK RATIO 6.129 (<5)
[2020-03-05 08:21] LABS: HEMOGLOBIN A1c 5.6 %
[2020-03-05] MEDS: BENZONATATE 100 MG CAP PO SCH ×3 (08:32→21:56)
[2020-03-05] MEDS: metFORMIN (GLUCOPHAGE) 500 MG TAB PO SCH ×3 (08:34→21:54)
[2020-03-05] MEDS: CYCLOBENZAPRINE 10MG TABLET PO SCH ×2 (08:34→21:56)
[2020-03-05] MEDS: DOCUSATE SODIUM 100 MG CAP PO SCH ×2 (08:34→21:58)
[2020-03-05] MEDS: PANTOPRAZOLE 40MG TAB (PROTONIX) PO SCH (08:34)
[2020-03-05] MEDS: CETIRIZINE (ZyrTEC) 10 MG TAB PO SCH (08:34)
[2020-03-05] MEDS: DIVALPROEX 500MG *ER* TAB PO SCH ×2 (08:34→21:56)
[2020-03-05] MEDS: VITAMIN D 1,000 INTERNATIONAL UNITS TABLET PO SCH (08:34)
[2020-03-05] MEDS: DOXYCYCLINE HYCLATE 100MG TABLET PO SCH ×2 (08:35→21:56)
[2020-03-05] MEDS: BENZTROPINE 2 MG TAB PO SCH (08:35)
--- NOTE | 2020-03-05 08:47 | MHIPN ---
DATE: 03/04/2020 The patient voiced suicidal ideations with a plan to hang herself. She would not contract for safety and so she was placed on one-to-one observation status. She indicated being overwhelmed due to the fact that she has had to continue being on a liquid diet because she continues to have abdominal discomfort. She was sent to get some imaging done on her ankle today. MENTAL STATUS EXAMINATION: This patient is alert and oriented times three. Eye contact is fair. Psychomotor activity is decreased. Mood is depressed. Affect appropriate to mood. I did not elicit any psychotic symptoms today. She is denying homicidal thoughts, but she admits to suicidal thoughts but she is willing to contract for safety at this point. Insight and judgment is poor. Concentration is fair. DIAGNOSES: Major depressive disorder, recurrent, unspecified. Borderline personality disorder. Moderate intellectual disability. TREATMENT PLAN: We will continue one-to-one observation status on this patient and we will continue to titrate her medications as indicated. FRANCISCO
--- NOTE | 2020-03-05 14:19 | REP ---
Clinical: Right adnexal pain. Technique: Transabdominal pelvic ultrasound followed by transvaginal examination for better evaluation of the endometrium and adnexa with color Doppler evaluation of the ovaries. Findings: Bladder appears normal and measures 10.5 x 12.1 x 7.0 cm. Normal anteverted uterus measures 6.4 x 2.8 x 3.1 cm. Endometrial complex measures 4.8 mm thickness. No discrete uterine or endometrial abnormality appreciated. The bilateral ovaries are normal. No evidence for torsion. Right ovary measures 2.4 x 1.7 x 1.8 cm (RI 0.52). Left ovary measures 2.2 x 1.3 x 2.0 cm (RI 0.44). No pelvic fluid or adnexal mass lesion. Impression: Normal pelvic ultrasound. Electronically Signed by Tj More MD 03/05/2020 02:10 P
--- NOTE | 2020-03-05 15:58 | HPE ---
DATE OF ADMISSION: 03/04/2020 CHIEF COMPLAINT: Right upper quadrant abdominal pain. HISTORY OF PRESENT ILLNESS: 19-year-old female with morbid obesity, body mass index (BMI) 55, probable obstructive sleep apnea, depression, posttraumatic stress disorder (PTSD), has borderline personality, PCOS, admitted today inpatient mental health unit for recurrent depression, borderline personality on oxazepam, complained of persistent nausea and vomiting, nonbilious, non-projectile, nonbloody, as well as right upper quadrant pain describes as radiating to the back on and off with blood tinged bowel movement with history of hemorrhoids. The patient said that she has not had any weight gain or weight loss. Worse when she tries to eat something, describes as achy, radiating to the back. No prior history of gallstones. Previous CT abdomen and pelvis on 02/18/2020 showed mild hepatomegaly, small hiatal hernia, trace left greater than right pleural effusions. Gallbladder bile duct had not radiodense gallstones, no biliary ductal dilatation, unremarkable pancreas and mild splenomegaly. The patient h as a 4.2 by 4.1 cm mildly complex right adnexal cystic lesion. Pelvic ultrasound may be obtained for further evaluation. The patient denies any fever or chills. Had two episodes of nausea yesterday and vomiting, non-projectile, non-bilious, nonbloody. The patient says that she had episode of hemoptysis. Hemoglobin remains stable. Vitals also stable with systolic pressure of 116, hemoglobin of 11, hematocrit of 35. Hospitalist was asked to evaluate her medical issues. PAST MEDICAL HISTORY: 1. Polycystic ovary syndrome (PCOS). 2. Morbid obesity. 3. Borderline personality. 4. Asthma. 5. Posttraumatic stress disorder (PTSD). 6. Recurrent depression. 7. Hemorrhoids. PAST SURGICAL HISTORY: Adenoidectomy, tonsillectomy, appendectomy, left oophorectomy. SOCIAL HISTORY: Smokes 2 to 3 cigarettes. Denies alcohol, marijuana use. Never worked. No recreational drug use. FAMILY HISTORY: Father is 61. Mother gallstones. REVIEW OF SYSTEMS: Per history of present illness. 12-point system otherwise negative. PHYSICAL EXAMINATION: Temperature 97.5, pulse 79, respiratory rate 14, blood pressure 130/63, 97% on room air. GENERAL: The patient is awake, alert, and oriented times 3, answers questions appropriately, anicteric sclerae. No jaundice. No cervical lymphadenopathy or thyromegaly. LUNGS: Clear to auscultation. No wheezes, rales or rhonchi. HEART: S1, S2. Sinus rhythm. ABDOMEN: Obese, soft, tender in right lower quadrant. No rebound, guarding, positive bowel sounds in all four quadrants. EXTREMITIES: No cyanosis or clubbing. SKIN: Warm, dry, well perfused. [place] in color. LABORATORY DATA: White count 5, hemoglobin 10, hematocrit 34, platelet count 149, previous platelet count of 157. Sodium 140, potassium 3.8, chloride 108, bicarbonate 31, BUN 4, creatinine 0.58, glucose of 74, calcium 8.3, magnesium 2.1. Total bilirubin 0.4, AST 13, ALT 18, alkaline phosphatase 62. Total protein 6.1, albumin 3.2, procalcitonin pending. HCG is negative. 02/28 wound cultures: Staphylococcus aureus sensitive to oxacillin. The patient has PENICILLIN allergy, TURKEY, EMTRICITABINE, SULFA, BACTRIM AND TOMATO. IMPRESSION: 1. Left breast skin infection. The patient is on doxycycline to complete 7 day course. Keep the area dry. 2. Right upper quadrant abdominal pain, possible biliary colic. Obtain ultrasound of the gallbladder and nothing by mouth for six hours and resume a diet. 3. Hepatosplenomegaly. Check lipid panel. Possible palpable mesh. 4. Depression, recurrent, managed by inpatient psychiatrist. 5. Morbid obesity. Check A1c and lipid panel. Thyroid simulating hormone (TSH) is normal. Weight loss, increase exercise as outpatient. 6. Morbid obesity. Body mass index (BMI) of 55. Probably obstructive sleep apnea. Outpatient followup with a sleep study. 7. Right adnexal mass, outpatient followup with Dr. Garsia.
[2020-03-05 16:06] VITALS: BP 130/75
[2020-03-05] MEDS: traMADol 50 MG TAB PO PRN (21:55)
[2020-03-05] MEDS: ONDANSETRON 4 MG ORAL DISINTEGRATING TAB PO PRN (21:56)
[2020-03-05] MEDS: QUEtiapine FUMARATE 50 MG TAB PO PRN (21:56)
[2020-03-05 21:57] VITALS: BP 130/72
[2020-03-05] MEDS: PRAZOSIN 1 MG CAP PO SCH (21:57)
[2020-03-06] MEDS: SUCRALFATE 1 GM TAB PO SCH ×2 (06:08→11:50)
[2020-03-06 06:35] VITALS: BP 137/86
[2020-03-06] MEDS: BENZONATATE 100 MG CAP PO SCH (08:03)
[2020-03-06] MEDS: metFORMIN (GLUCOPHAGE) 500 MG TAB PO SCH (08:03)
[2020-03-06] MEDS: PANTOPRAZOLE 40MG TAB (PROTONIX) PO SCH (08:03)
[2020-03-06] MEDS: DOCUSATE SODIUM 100 MG CAP PO SCH (08:04)
[2020-03-06] MEDS: BENZTROPINE 2 MG TAB PO SCH (08:04)
[2020-03-06] MEDS: CYCLOBENZAPRINE 10MG TABLET PO SCH (08:04)
[2020-03-06] MEDS: DOXYCYCLINE HYCLATE 100MG TABLET PO SCH (08:05)
[2020-03-06] MEDS: VITAMIN D 1,000 INTERNATIONAL UNITS TABLET PO SCH (08:05)
[2020-03-06] MEDS: CETIRIZINE (ZyrTEC) 10 MG TAB PO SCH (08:05)
[2020-03-06] MEDS: DIVALPROEX 500MG *ER* TAB PO SCH (08:06)
--- NOTE | 2020-03-06 09:08 | MHIPN ---
DATE: 03/05/2020 SUBJECTIVE: The patient today tells me that she is feeling very depressed. She says that her little niece last night. Apparently she had been ill since . She tells me that she continues to have thoughts of wanting to kill herself by hanging herself. She says she continues to hear voices telling her to hang herself. MENTAL STATUS EXAMINATION: She is alert and oriented x3. Eye contact is poor. Psychomotor activity is decreased. She is verbally spontaneous. There is no formal thought disorder noted. Mood is depressed. Affect is of full range and appropriate. She voices command auditory hallucinations. She states that she is having suicidal thoughts. Concentration is fair. Memory intact. Insight and judgment poor. ASSESSMENT: Major depressive disorder recurrent unspecified, borderline personality disorder, and moderate intellectual disability. TREATMENT PLAN: At this point, the patient will be placed back on one-to-one observation level since she continues to voice suicidal thoughts. We will continue to titrate her medications as indicated.
[2020-03-06] MEDS: ACETAMINOPHEN TAB 650MG DOSE (2X325MG) PO PRN (10:03)
[2020-03-08] MEDS ORDERED: CYCLOBENZAPRINE 10MG TABLET ONE ×2 (06:29)
[2020-03-08] MEDS ORDERED: VITAMIN D 1,000 INTERNATIONAL UNITS TABLET ONE (06:29)
[2020-03-08] MEDS ORDERED: BENZONATATE 100 MG CAP ONE ×4 (06:29→11:30)
[2020-03-08] MEDS ORDERED: ACETAMINOPHEN TAB 650MG DOSE (2X325MG) ONE ×2 (06:29)
[2020-03-08] MEDS ORDERED: BENZTROPINE 2 MG TAB ONE (06:29)
[2020-03-08] MEDS ORDERED: DOCUSATE SODIUM 100 MG CAP ONE ×2 (06:29)
[2020-03-08] MEDS ORDERED: traZODone 50 MG TAB ONE (06:29)
[2020-03-08] MEDS ORDERED: SUCRALFATE 1 GM TAB ONE ×4 (06:29)
[2020-03-08] MEDS ORDERED: QUEtiapine FUMARATE 50 MG TAB ONE (06:29)
[2020-03-08] MEDS ORDERED: DIVALPROEX 500 MG TAB ONE (06:29)
[2020-03-08] MEDS ORDERED: DOXYCYCLINE HYCLATE 100MG TABLET ONE ×2 (06:29)
[2020-03-08] MEDS ORDERED: traMADol 50 MG TAB ONE (06:29)
[2020-03-08] MEDS ORDERED: CETIRIZINE (ZyrTEC) 10 MG TAB ONE (06:29)
[2020-03-08] MEDS ORDERED: PRAZOSIN 1 MG CAP ONE (06:29)
[2020-03-08] MEDS ORDERED: metFORMIN (GLUCOPHAGE) 500 MG TAB ONE ×3 (06:29)
[2020-03-08] MEDS ORDERED: PANTOPRAZOLE 40MG TAB (PROTONIX) ONE (06:29)
[2020-03-09] MEDS ORDERED: SUCRALFATE 1 GM TAB ONE ×4 (04:45→08:43)
[2020-03-09] MEDS ORDERED: ACETAMINOPHEN TAB 650MG DOSE (2X325MG) ONE (04:45)
[2020-03-09] MEDS ORDERED: metFORMIN (GLUCOPHAGE) 500 MG TAB ONE ×3 (04:45→08:43)
[2020-03-09] MEDS ORDERED: BENZONATATE 100 MG CAP ONE ×3 (04:45→08:43)
[2020-03-09] MEDS ORDERED: traMADol 50 MG TAB ONE ×2 (08:23→08:43)
[2020-03-09] MEDS ORDERED: VITAMIN D 1,000 INTERNATIONAL UNITS TABLET ONE (08:23)
[2020-03-09] MEDS ORDERED: DOCUSATE SODIUM 100 MG CAP ONE (08:23)
[2020-03-09] MEDS ORDERED: CYCLOBENZAPRINE 10MG TABLET ONE ×2 (08:23→08:43)
[2020-03-09] MEDS ORDERED: DOXYCYCLINE HYCLATE 100MG TABLET ONE ×2 (08:23→08:43)
[2020-03-09] MEDS ORDERED: BENZTROPINE 2 MG TAB ONE (08:23)
[2020-03-09] MEDS ORDERED: CETIRIZINE (ZyrTEC) 10 MG TAB ONE (08:23)
[2020-03-09] MEDS ORDERED: PANTOPRAZOLE 40MG TAB (PROTONIX) ONE ×2 (08:23→08:43)
[2020-03-09] MEDS ORDERED: DIVALPROEX 250MG *ER* TAB ONE (08:26)
[2020-03-09] MEDS ORDERED: DIVALPROEX 500MG *ER* TAB ONE (08:43)
[2020-03-09] MEDS ORDERED: PRAZOSIN 1 MG CAP ONE (08:43)
[2020-03-09] MEDS ORDERED: traZODone 50 MG TAB ONE (08:43)
[2020-03-09] MEDS ORDERED: QUEtiapine FUMARATE 50 MG TAB ONE (08:43)
[2020-03-10] MEDS ORDERED: metFORMIN (GLUCOPHAGE) 500 MG TAB ONE ×3 (04:08→08:34)
[2020-03-10] MEDS ORDERED: SUCRALFATE 1 GM TAB ONE ×4 (04:08→12:01)
[2020-03-10] MEDS ORDERED: BENZONATATE 100 MG CAP ONE ×4 (04:08→12:01)
[2020-03-10] MEDS ORDERED: DOXYCYCLINE HYCLATE 100MG TABLET ONE ×2 (06:22→08:34)
[2020-03-10] MEDS ORDERED: BENZTROPINE 2 MG TAB ONE (06:22)
[2020-03-10] MEDS ORDERED: DIVALPROEX 500MG *ER* TAB ONE ×2 (06:22→08:34)
[2020-03-10] MEDS ORDERED: ACETAMINOPHEN TAB 650MG DOSE (2X325MG) ONE (06:22)
[2020-03-10] MEDS ORDERED: DOCUSATE SODIUM 100 MG CAP ONE ×2 (06:22→08:34)
[2020-03-10] MEDS ORDERED: VITAMIN D 1,000 INTERNATIONAL UNITS TABLET ONE (06:22)
[2020-03-10] MEDS ORDERED: PANTOPRAZOLE 40MG TAB (PROTONIX) ONE (06:22)
[2020-03-10] MEDS ORDERED: CYCLOBENZAPRINE 10MG TABLET ONE ×2 (06:22→08:34)
[2020-03-10] MEDS ORDERED: CETIRIZINE (ZyrTEC) 10 MG TAB ONE (06:22)
[2020-03-10] MEDS ORDERED: ARIPiprazole 10 MG TAB ONE (08:34)
[2020-03-10] MEDS ORDERED: PRAZOSIN 1 MG CAP ONE (08:34)
[2020-03-10] MEDS ORDERED: traMADol 50 MG TAB ONE (08:34)
[2020-03-10] MEDS ORDERED: traZODone 50 MG TAB ONE (08:34)
[2020-03-10] MEDS ORDERED: QUEtiapine FUMARATE 50 MG TAB ONE (08:34)
[2020-03-10] MEDS ORDERED: ARIPiprazole 10 MG TAB As Ordered ONE (20:35)
[2020-03-11] MEDS ORDERED: metFORMIN (GLUCOPHAGE) 500 MG TAB ONE ×3 (03:52→08:43)
[2020-03-11] MEDS ORDERED: BENZONATATE 100 MG CAP ONE ×3 (03:52→08:43)
[2020-03-11] MEDS ORDERED: SUCRALFATE 1 GM TAB ONE ×4 (05:01→12:06)
[2020-03-11] MEDS ORDERED: DIVALPROEX 500MG *ER* TAB ONE ×2 (06:58→08:43)
[2020-03-11] MEDS ORDERED: VITAMIN D 1,000 INTERNATIONAL UNITS TABLET ONE (06:58)
[2020-03-11] MEDS ORDERED: DOXYCYCLINE HYCLATE 100MG TABLET ONE ×2 (06:58→08:43)
[2020-03-11] MEDS ORDERED: BENZTROPINE 2 MG TAB ONE (06:58)
[2020-03-11] MEDS ORDERED: CYCLOBENZAPRINE 10MG TABLET ONE ×2 (06:58→08:43)
[2020-03-11] MEDS ORDERED: CETIRIZINE (ZyrTEC) 10 MG TAB ONE (06:58)
[2020-03-11] MEDS ORDERED: DOCUSATE SODIUM 100 MG CAP ONE ×2 (06:58→08:43)
[2020-03-11] MEDS ORDERED: PANTOPRAZOLE 40MG TAB (PROTONIX) ONE (06:58)
[2020-03-11] MEDS ORDERED: traZODone 50 MG TAB ONE (08:43)
[2020-03-11] MEDS ORDERED: ARIPiprazole 10 MG TAB ONE (08:43)
[2020-03-11] MEDS ORDERED: QUEtiapine FUMARATE 50 MG TAB ONE (08:43)
[2020-03-11] MEDS ORDERED: PRAZOSIN 1 MG CAP ONE (08:43)
[2020-03-11] MEDS ORDERED: traMADol 50 MG TAB ONE (08:43)
[2020-03-11] MEDS ORDERED: ARIPiprazole 10 MG TAB As Ordered ONE (20:45)
[2020-03-12] MEDS ORDERED: BENZONATATE 100 MG CAP ONE ×3 (04:30→20:40)
[2020-03-12] MEDS ORDERED: SUCRALFATE 1 GM TAB ONE ×4 (04:30→20:40)
[2020-03-12] MEDS ORDERED: metFORMIN (GLUCOPHAGE) 500 MG TAB ONE ×3 (04:30→20:40)
[2020-03-12] MEDS ORDERED: ACETAMINOPHEN TAB 650MG DOSE (2X325MG) ONE (04:30)
[2020-03-12] MEDS ORDERED: BENZTROPINE 2 MG TAB ONE (08:40)
[2020-03-12] MEDS ORDERED: CETIRIZINE (ZyrTEC) 10 MG TAB ONE (08:40)
[2020-03-12] MEDS ORDERED: DOXYCYCLINE HYCLATE 100MG TABLET ONE (08:40)
[2020-03-12] MEDS ORDERED: CYCLOBENZAPRINE 10MG TABLET ONE ×2 (08:40→20:40)
[2020-03-12] MEDS ORDERED: DOCUSATE SODIUM 100 MG CAP ONE ×2 (08:40→20:40)
[2020-03-12] MEDS ORDERED: DIVALPROEX 500MG *ER* TAB ONE ×2 (08:40→20:40)
[2020-03-12] MEDS ORDERED: PANTOPRAZOLE 40MG TAB (PROTONIX) ONE (08:40)
[2020-03-12] MEDS ORDERED: VITAMIN D 1,000 INTERNATIONAL UNITS TABLET ONE (08:40)
[2020-03-12] MEDS ORDERED: BACITRACIN OINTMENT 30GM TUBE ONE (09:00)
[2020-03-12] MEDS ORDERED: traMADol 50 MG TAB ONE (11:44)
[2020-03-12] MEDS ORDERED: OLANZapine ORAL DISINTEGRATING TAB 5MG ONE (11:44)
[2020-03-12] MEDS ORDERED: QUEtiapine FUMARATE 50 MG TAB ONE (20:40)
[2020-03-12] MEDS ORDERED: traZODone 50 MG TAB ONE (20:40)
[2020-03-12] MEDS ORDERED: PRAZOSIN 1 MG CAP ONE (20:40)
[2020-03-12] MEDS ORDERED: ARIPiprazole 10 MG TAB As Ordered ONE (20:41)
[2020-03-13] MEDS ORDERED: VITAMIN D 1,000 INTERNATIONAL UNITS TABLET ONE (08:17)
[2020-03-13] MEDS ORDERED: traMADol 50 MG TAB ONE ×2 (08:17→20:05)
[2020-03-13] MEDS ORDERED: DIVALPROEX 500MG *ER* TAB ONE ×2 (08:17→20:05)
[2020-03-13] MEDS ORDERED: CYCLOBENZAPRINE 10MG TABLET ONE ×2 (08:17→20:05)
[2020-03-13] MEDS ORDERED: CETIRIZINE (ZyrTEC) 10 MG TAB ONE (08:17)
[2020-03-13] MEDS ORDERED: DOCUSATE SODIUM 100 MG CAP ONE ×2 (08:17→20:05)
[2020-03-13] MEDS ORDERED: SUCRALFATE 1 GM TAB ONE ×4 (08:17→20:05)
[2020-03-13] MEDS ORDERED: metFORMIN (GLUCOPHAGE) 500 MG TAB ONE ×3 (08:17→20:05)
[2020-03-13] MEDS ORDERED: BENZONATATE 100 MG CAP ONE ×3 (08:17→20:05)
[2020-03-13] MEDS ORDERED: PANTOPRAZOLE 40MG TAB (PROTONIX) ONE (08:17)
[2020-03-13] MEDS ORDERED: BENZTROPINE 1 MG TAB As Ordered ONE (08:21)
[2020-03-13] MEDS ORDERED: OLANZapine ORAL DISINTEGRATING TAB 5MG ONE ×2 (11:39→15:37)
[2020-03-13] MEDS ORDERED: TUBERCULIN PPD 5 UNITS/0.1 ML As Ordered ONE (15:34)
[2020-03-13] MEDS ORDERED: PRAZOSIN 1 MG CAP ONE (20:05)
[2020-03-13] MEDS ORDERED: QUEtiapine FUMARATE 50 MG TAB ONE (20:05)
[2020-03-13] MEDS ORDERED: traZODone 50 MG TAB ONE (20:05)
[2020-03-13] MEDS ORDERED: DOXYCYCLINE HYCLATE 100MG TABLET ONE ×2 (20:05)
[2020-03-14] MEDS ORDERED: SUCRALFATE 1 GM TAB ONE ×5 (06:13→20:35)
[2020-03-14] MEDS ORDERED: DOCUSATE SODIUM 100 MG CAP ONE ×2 (09:01→20:35)
[2020-03-14] MEDS ORDERED: DIVALPROEX 500MG *ER* TAB ONE ×2 (09:01→20:35)
[2020-03-14] MEDS ORDERED: BENZONATATE 100 MG CAP ONE ×2 (09:01→11:00)
[2020-03-14] MEDS ORDERED: BENZTROPINE 2 MG TAB ONE (09:01)
[2020-03-14] MEDS ORDERED: CETIRIZINE (ZyrTEC) 10 MG TAB ONE (09:01)
[2020-03-14] MEDS ORDERED: metFORMIN (GLUCOPHAGE) 500 MG TAB ONE ×3 (09:01→20:35)
[2020-03-14] MEDS ORDERED: CYCLOBENZAPRINE 10MG TABLET ONE ×2 (09:01→20:35)
[2020-03-14] MEDS ORDERED: VITAMIN D 1,000 INTERNATIONAL UNITS TABLET ONE (09:01)
[2020-03-14] MEDS ORDERED: PANTOPRAZOLE 40MG TAB (PROTONIX) ONE (09:01)
[2020-03-14] MEDS ORDERED: ALBUTEROL 90 MCG/ACT 8GM HFA INHALER As Ordered ONE ×2 (13:52→20:40)
[2020-03-14] MEDS ORDERED: ACETAMINOPHEN TAB 650MG DOSE (2X325MG) ONE (13:53)
[2020-03-14] MEDS ORDERED: traMADol 50 MG TAB ONE (20:35)
[2020-03-14] MEDS ORDERED: QUEtiapine FUMARATE 50 MG TAB ONE (20:35)
[2020-03-14] MEDS ORDERED: traZODone 50 MG TAB ONE ×2 (20:35)
[2020-03-14] MEDS ORDERED: PRAZOSIN 1 MG CAP ONE (20:35)
[2020-03-15] MEDS ORDERED: PANTOPRAZOLE 40MG TAB (PROTONIX) ONE (08:18)
[2020-03-15] MEDS ORDERED: DIVALPROEX 500MG *ER* TAB ONE ×2 (08:18→20:47)
[2020-03-15] MEDS ORDERED: CETIRIZINE (ZyrTEC) 10 MG TAB ONE (08:18)
[2020-03-15] MEDS ORDERED: SUCRALFATE 1 GM TAB ONE ×4 (08:18→20:47)
[2020-03-15] MEDS ORDERED: metFORMIN (GLUCOPHAGE) 500 MG TAB ONE ×3 (08:18→20:47)
[2020-03-15] MEDS ORDERED: CYCLOBENZAPRINE 10MG TABLET ONE ×2 (08:18→20:47)
[2020-03-15] MEDS ORDERED: ALBUTEROL 90 MCG/ACT 8GM HFA INHALER ONE ×2 (08:18→20:47)
[2020-03-15] MEDS ORDERED: BENZTROPINE 2 MG TAB ONE (08:18)
[2020-03-15] MEDS ORDERED: VITAMIN D 1,000 INTERNATIONAL UNITS TABLET ONE (08:18)
[2020-03-15] MEDS ORDERED: DOCUSATE SODIUM 100 MG CAP ONE ×2 (08:18→20:47)
[2020-03-15] MEDS ORDERED: ALBUTEROL 90 MCG/ACT 8GM HFA INHALER As Ordered ONE ×2 (08:21→20:56)
[2020-03-15] MEDS ORDERED: traMADol 50 MG TAB ONE (14:55)
[2020-03-15] MEDS ORDERED: QUEtiapine FUMARATE 50 MG TAB ONE (20:47)
[2020-03-15] MEDS ORDERED: PRAZOSIN 1 MG CAP ONE (20:47)
[2020-03-15] MEDS ORDERED: traZODone 50 MG TAB ONE (20:47)
[2020-03-15] MEDS ORDERED: ACETAMINOPHEN TAB 650MG DOSE (2X325MG) ONE (20:47)
[2020-03-15] MEDS ORDERED: ARIPiprazole 10 MG TAB As Ordered ONE (20:48)
[2020-03-16] MEDS ORDERED: CYCLOBENZAPRINE 10MG TABLET ONE ×2 (08:00→08:29)
[2020-03-16] MEDS ORDERED: traMADol 50 MG TAB ONE ×2 (08:00→08:29)
[2020-03-16] MEDS ORDERED: BENZTROPINE 2 MG TAB ONE (08:00)
[2020-03-16] MEDS ORDERED: ALBUTEROL 90 MCG/ACT 8GM HFA INHALER ONE (08:00)
[2020-03-16] MEDS ORDERED: metFORMIN (GLUCOPHAGE) 500 MG TAB ONE ×3 (08:00→16:37)
[2020-03-16] MEDS ORDERED: SUCRALFATE 1 GM TAB ONE ×4 (08:00→16:37)
[2020-03-16] MEDS ORDERED: DOCUSATE SODIUM 100 MG CAP ONE ×2 (08:00→08:29)
[2020-03-16] MEDS ORDERED: VITAMIN D 1,000 INTERNATIONAL UNITS TABLET ONE (08:00)
[2020-03-16] MEDS ORDERED: PANTOPRAZOLE 40MG TAB (PROTONIX) ONE (08:00)
[2020-03-16] MEDS ORDERED: ARIPiprazole 10 MG TAB As Ordered ONE ×2 (08:00→20:31)
[2020-03-16] MEDS ORDERED: CETIRIZINE (ZyrTEC) 10 MG TAB ONE (08:00)
[2020-03-16] MEDS ORDERED: DIVALPROEX 500MG *ER* TAB ONE ×2 (08:00→08:29)
[2020-03-16] MEDS ORDERED: ALBUTEROL 90 MCG/ACT 8GM HFA INHALER As Ordered ONE (08:01)
[2020-03-16] MEDS ORDERED: PRAZOSIN 1 MG CAP ONE (08:29)
[2020-03-16] MEDS ORDERED: QUEtiapine FUMARATE 50 MG TAB ONE (08:29)
[2020-03-16] MEDS ORDERED: traZODone 50 MG TAB ONE (08:29)
[2020-03-17] MEDS ORDERED: SUCRALFATE 1 GM TAB ONE ×4 (06:28→20:51)
[2020-03-17] MEDS ORDERED: CETIRIZINE (ZyrTEC) 10 MG TAB ONE (08:18)
[2020-03-17] MEDS ORDERED: CYCLOBENZAPRINE 10MG TABLET ONE ×2 (08:18→20:51)
[2020-03-17] MEDS ORDERED: DOCUSATE SODIUM 100 MG CAP ONE ×2 (08:18→20:51)
[2020-03-17] MEDS ORDERED: BENZTROPINE 2 MG TAB ONE (08:18)
[2020-03-17] MEDS ORDERED: DIVALPROEX 500MG *ER* TAB ONE ×2 (08:18→20:51)
[2020-03-17] MEDS ORDERED: PANTOPRAZOLE 40MG TAB (PROTONIX) ONE (08:18)
[2020-03-17] MEDS ORDERED: DOXYCYCLINE HYCLATE 100MG TABLET ONE (08:18)
[2020-03-17] MEDS ORDERED: VITAMIN D 1,000 INTERNATIONAL UNITS TABLET ONE (08:18)
[2020-03-17] MEDS ORDERED: metFORMIN (GLUCOPHAGE) 500 MG TAB ONE ×3 (08:18→20:51)
[2020-03-17] MEDS ORDERED: LevoFLOXacin 750 MG TABLET ONE ×2 (09:00→12:34)
[2020-03-17] MEDS ORDERED: predniSONE 10 MG TAB As Ordered ONE (10:25)
[2020-03-17] MEDS ORDERED: predniSONE 20 MG TAB As Ordered ONE (10:27)
[2020-03-17] MEDS ORDERED: traMADol 50 MG TAB ONE (17:12)
[2020-03-17] MEDS ORDERED: traZODone 50 MG TAB ONE (20:51)
[2020-03-17] MEDS ORDERED: QUEtiapine FUMARATE 50 MG TAB ONE (20:51)
[2020-03-17] MEDS ORDERED: OLANZapine ORAL DISINTEGRATING TAB 5MG ONE (20:51)
[2020-03-17] MEDS ORDERED: PRAZOSIN 1 MG CAP ONE (20:51)
[2020-03-18] MEDS ORDERED: BENZTROPINE 2 MG TAB ONE (08:27)
[2020-03-18] MEDS ORDERED: DOCUSATE SODIUM 100 MG CAP ONE ×2 (08:27→20:47)
[2020-03-18] MEDS ORDERED: SUCRALFATE 1 GM TAB ONE ×4 (08:27→20:47)
[2020-03-18] MEDS ORDERED: VITAMIN D 1,000 INTERNATIONAL UNITS TABLET ONE (08:27)
[2020-03-18] MEDS ORDERED: DIVALPROEX 500MG *ER* TAB ONE ×2 (08:27→20:47)
[2020-03-18] MEDS ORDERED: CYCLOBENZAPRINE 10MG TABLET ONE ×2 (08:27→20:47)
[2020-03-18] MEDS ORDERED: metFORMIN (GLUCOPHAGE) 500 MG TAB ONE ×3 (08:27→20:47)
[2020-03-18] MEDS ORDERED: CETIRIZINE (ZyrTEC) 10 MG TAB ONE (08:27)
[2020-03-18] MEDS ORDERED: PANTOPRAZOLE 40MG TAB (PROTONIX) ONE (08:27)
[2020-03-18] MEDS ORDERED: predniSONE 20 MG TAB As Ordered ONE (08:40)
[2020-03-18] MEDS ORDERED: traZODone 50 MG TAB ONE (20:47)
[2020-03-18] MEDS ORDERED: PRAZOSIN 1 MG CAP ONE (20:47)
[2020-03-18] MEDS ORDERED: QUEtiapine FUMARATE 50 MG TAB ONE (20:47)
[2020-03-18] MEDS ORDERED: ARIPiprazole 10 MG TAB As Ordered ONE (20:49)
[2020-03-19] MEDS ORDERED: metFORMIN (GLUCOPHAGE) 500 MG TAB ONE (08:05)
[2020-03-19] MEDS ORDERED: PANTOPRAZOLE 40MG TAB (PROTONIX) ONE (08:05)
[2020-03-19] MEDS ORDERED: SUCRALFATE 1 GM TAB ONE ×2 (08:05→11:51)
[2020-03-19] MEDS ORDERED: CYCLOBENZAPRINE 10MG TABLET ONE (08:05)
[2020-03-19] MEDS ORDERED: CETIRIZINE (ZyrTEC) 10 MG TAB ONE (08:05)
[2020-03-19] MEDS ORDERED: VITAMIN D 1,000 INTERNATIONAL UNITS TABLET ONE (08:05)
[2020-03-19] MEDS ORDERED: DOCUSATE SODIUM 100 MG CAP ONE (08:05)
[2020-03-19] MEDS ORDERED: DIVALPROEX 500MG *ER* TAB ONE (08:05)
[2020-03-19] MEDS ORDERED: BENZTROPINE 2 MG TAB ONE (08:05)
[2020-03-19] MEDS ORDERED: predniSONE 20 MG TAB As Ordered ONE (08:18)
[2020-03-19] MEDS ORDERED: LevoFLOXacin 750 MG TABLET ONE (11:00)
[2020-04-20 03:23] LABS: HEMATOCRIT 40.4 % (36.0-47.0); HEMOGLOBIN 11.6 g/dl (12.0-15.5); MEAN CORPUSCULAR HEMOGLOBIN 27.2 pg (27.0-33.0); MEAN CORPUSCULAR HGB CONC 28.7 g/dl (32.0-36.5); MEAN CORPUSCULAR VOLUME 94.6 fl (80.0-96.0); PLATELET COUNT, AUTOMATED 135 10^3/uL (150-450); RED BLOOD COUNT 4.27 10^6/uL (4.00-5.40); WHITE BLOOD COUNT 10.2 10^3/uL (4.0-10.0)
[2020-04-28 10:46] LABS: BLOOD UREA NITROGEN 8 MG/DL (7-18); CALCIUM LEVEL 9.2 MG/DL (8.5-10.1); CARBON DIOXIDE LEVEL 23 MEQ/L (21-32); CHLORIDE LEVEL 111 MEQ/L (98-107); CREATININE FOR GFR 0.85 MG/DL (0.55-1.30); GLOMERULAR FILTRATION RATE > 60.0 (>60); GLUCOSE, FASTING 161 MG/DL (70-100); MAGNESIUM LEVEL 1.8 MG/DL (1.8-2.4); POTASSIUM SERUM 4.4 MEQ/L (3.5-5.1); SODIUM LEVEL 143 MEQ/L (136-145)
--- NOTE | 2020-05-20 13:24 | MHIPN ---
DATE: 03/17/2020 The patient today tells me that she has not heard any voices since yesterday. She did hear the voices a couple of days ago. That was the last time. She says that she is feeling less depressed. MENTAL STATUS EXAMINATION: This patient is alert and oriented times three. Eye contact is fair. There is no formal thought disorder noted. Verbally spontaneous. She is feeling less depressed. Affect appropriate to mood. She is denying auditory hallucinations. Denies being suicidal or homicidal. Concentration is fair. Memory is intact. Insight and judgment are poor. DIAGNOSES: 1. Major depressive disorder. 2. Borderline personality disorder. 3. Intellectual disability, moderate. TREATMENT PLAN: At this point, we will continue to monitor the patient for any ongoing depressive symptomatology or psychotic symptoms. The patient seems to be beginning to improve. She is no longer on a sitter for a couple of days. FRANCISCO
--- NOTE | 2020-05-20 13:38 | MHIPN ---
DATE: 03/18/2020 SUBJECTIVE: The patient today tells me that she continues to feel better. She says that she is not hearing voices anymore telling her to hurt herself. She is not having suicidal thoughts. She does complain that she is not able to sleep at night, but she says that is because of the other patients that are constantly having to be coded in the unit, and she says this noise keeps her up. At this point, the patient is pressing for discharge. We discussed the fact that she does have an appointment and she says she is going to go to [facility] and tell that them that is a dangerous apartment and asked them to put her up in some kind of motel or ticket so that she can take the bus down to [place] and go to a penitentiary down there. She tells me that she has been in those shelters in [place] before, and I discussed with the patient what is going to happen if DSS says that they really cannot help her because she does have an apartment, and then she tells me that she has money and she will buy the ticket herself to go to [place]. MENTAL STATUS EXAMINATION: She is alert and oriented x3. Eye contact is fair. She is verbally spontaneous. There is no formal thought disorder noted. She said her mood is better. Affect is appropriate to mood. She is not psychotic, suicidal, or homicidal. Concentration is fair. Memory intact. Insight and judgment fair. DIAGNOSES: Major depressive disorder recurrent, unspecified. Borderline personality disorder. Moderate intellectual disability. TREATMENT PLAN: At this point, I discussed with the patient that it sounds like she is no longer suicidal or hearing voices, and her mood has stabilized and we are looking at setting her up for discharge tomorrow. FRANCISCO
--- NOTE | 2020-05-20 13:41 | MHIPN ---
DATE: 03/12/2020 The patient today tells me that she is still having auditory hallucinations telling her to kill herself. She is still having suicidal thoughts. She became angry when I told her we were looking at long-term treatment for her at the [facility], and she got up, became verbally abusive, left, and slammed the door on her way out. MENTAL STATUS EXAMINATION: This patient was not really cooperative with the mental status exam but definitively her mood was angry, and she did voice command auditory hallucinations to kill herself and voiced suicidal ideation. DIAGNOSIS: 1. Major depressive disorder, recurrent, unspecified. 2. Borderline personality disorder. 3. Mild intellectual disability. TREATMENT PLAN: At this point, the patient will be continued on one-to-one observation level. The patient still voices command hallucinations to kill herself and suicidal ideation, and we have started the referral for long-term treatment at [facility] for this patient. FRANCISCO
--- NOTE | 2020-05-20 13:45 | MHIPN ---
DATE: 03/15/2020 SUBJECTIVE: The patient today continues to complain of the coughing, said she did not sleep good last night. She says the primary care provider did see her and did not feel that she needed any further treatment at this point. The patient states that she still hears voices telling her to hurt herself, but she is able to contract for safety today. MENTAL STATUS EXAMINATION: The patient is alert and oriented times 3. Eye contact good. Psychomotor activity is decreased. She is coughing now and then. There is no formal thought disorder noted. Says her mood is not good. Affect appropriate to mood. She continues with command auditory hallucinations to hurt herself, but she is able to contract for safety. Denies homicidal ideation. Concentration is fair. Memory intact. Insight and judgment are fair. DIAGNOSES: 1. Major depressive disorder, recurrent, unspecified. 2. Borderline personality disorder. 3. Moderate intellectual disorder. TREATMENT PLAN: At this point, she is able to contract for safety. I am going to discontinue one-to-one observation level. I just increased her Ability yesterday and we will wait for the clinical response. FRANCISCO
--- NOTE | 2020-05-20 13:48 | MHIPN ---
DATE: 03/14/2020 The patient today tells me she is not feeling good physically. She does have a significant cough. Other than that, she did not have any other physical complaints today. She still continues to complain of command auditory hallucinations to kill herself. She continues to have suicidal thoughts. MENTAL STATUS EXAMINATION: This patient is alert and oriented times three. Eye contact is fair. Psychomotor activity is decreased. She is verbally spontaneous. There is no formal thought disorder noted. Mood is not good. Affect appropriate to mood. She continues to have command hallucinations to kill herself. She has suicidal thoughts. Denies homicidal thoughts. Concentration is fair. Insight and judgment are poor. DIAGNOSES: 1. Major depressive disorder, recurrent. 2. Other specified and borderline personality disorder. 3. Moderate intellectual disability. TREATMENT PLAN: Today we did increase the Abilify to 10 mg twice a day. She will continue to titrate the medications as indicated. We will continue the patient on one-to-one observation level. MTDD
--- NOTE | 2020-05-20 14:03 | MHIPN ---
DATE: 03/13/2020 The patient today states, "I'm still doing the same." She is still having command auditory hallucinations to hurt herself. The patient states that she is still having suicidal thoughts. She says she did not sleep that well last night because another patient was apparently up and screaming. MENTAL STATUS EXAMINATION: She is alert and oriented times three. Eye contact is good. She is verbally spontaneous. There in no formal thought disorder noted. She says her mood is sad. Affect is appropriate. She continues to have command auditory hallucinations to hurt herself. She continues to have suicidal thoughts and denies homicidal thoughts. The patient's insight and judgment is poor. Concentration and memory are intact. DIAGNOSES: 1. Major depressive disorder, recurrent, unspecified. 2. Borderline personality disorder. 3. Moderate intellectual disability. TREATMENT PLAN: At this point, we will continue the patient on her current medications, except I will increase the Abilify to 10 mg three times a day, since the patient continues to have command auditory hallucinations to kill herself. We will continue one-to-one observation. FRANCISCO
--- NOTE | 2020-05-20 14:23 | MHIPN ---
DATE: 03/11/2020 The patient today states that she continues to have command auditory hallucinations telling her to kill herself. MENTAL STATUS EXAMINATION: This patient is alert and oriented times three. Eye contact is fair. She is verbally spontaneous. There is no formal thought disorder noted. Actually, her mood is angry because I told her that we needed to start the process of the referral to [facility]. At this point, the patient is having command auditory hallucinations to hurt herself. Concentration is fair. Memory is intact. Insight and judgment is poor. DIAGNOSES: Major depressive disorder, recurrent, unspecified. Borderline personality disorder. Moderate intellectual disability. TREATMENT PLAN: She continues to complain of command auditory hallucinations to kill herself. She will continue on one-to-one observation level. I just increased her Abilify last week and we will continue to monitor the patient for command auditory hallucinations to kill herself. We will start the referral the [facility] for long-term treatment. FRANCISCO
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
[2020-06-10 09:32] LABS: CREATININE FOR GFR 0.78 MG/DL (0.55-1.30); GLOMERULAR FILTRATION RATE > 60.0 (>60)
== END 2020-03-19 15:15 | disposition home or self-care (01) | DRG 751 ==
LOC: M PSY 22:40
PROVIDERS: ADMIT Psychiatry & Neurology Psychiatry; ATTEND Psychiatry & Neurology Addiction Medicine
DX: F33.9 Major depressive disorder, recurrent, unspecified (principal); E66.01 Morbid (severe) obesity due to excess calories; F71 Moderate intellectual disabilities; F60.3 Borderline personality disorder; J45.909 Unspecified asthma, uncomplicated; K64.4 Residual hemorrhoidal skin tags; E28.2 Polycystic ovarian syndrome; Z79.899 Other long term (current) drug therapy; Z88.2 Allergy status to sulfonamides; Z88.0 Allergy status to penicillin; Z91.018 Allergy to other foods; Z91.040 Latex allergy status

== ENCOUNTER → 2020-03-23 | Emergency (ER) | payer OTHER ==
[~2020-03-23] MED LIST changes: +ACET-908 PO; +ACET1TAB55 PO; +ACET325T43 PO; +ARIP1TAB10 PO; +BENA25TA5; +BENZ200C70 PO; +BUPR1SUB33 SL; +BUPR1SUB4 SL; +CALA1LOT9 EXT; +CIPR-249; +CIPR500T3 PO; +DICYCLOMINE 10 MG CAP As Ordered ONE; +DIPH25CA32 PO; +DOCU100C16 PO; +FAMO1TAB11 PO; +FAMO20TA PO; +FAMO40TA3 PO; +FLUO20CA22 PO; +HYDR-3363; +HYDR-3363 PO; +IBUP1TAB7 PO; +IBUP80TA PO; +METR-265; +METR-265 PO; +MM S100C PO; +NEOM28.32 EXT; +NITR100C2; +NITR100C2 PO; +OLAN10TA2 PO; +OMEP-218; +OMEP1CAP73 PO; +ONDA-83; +ONDA4TAB6; +PANT40TA29 PO; +PATIENT COMMENT; +PHEN-593 PO; +PRAZ5CAP; +PRAZ5CAP PO; +PRAZ5CAP22 PO; +PRIL20TA2; +PRIL20TA2 PO; +PROM12.56 PO; +PYRI0.4T; +SENN-23 PO; +TRAZ-252
[2020-05-08 18:37] LABS: BASO # 0.1 10^3/uL (0.0-0.2); BASO % 0.5 % (0.0-1.0); EOS # 0.5 10^3/uL (0.0-0.5); EOS % 4.6 % (0.0-3.0); HEMATOCRIT 34.4 % (36.0-47.0); HEMOGLOBIN 10.9 g/dl (12.0-15.5); LYMPH # 2.4 10^3/uL (1.5-5.0); MEAN CORPUSCULAR HEMOGLOBIN 28.2 pg (27.0-33.0); MEAN CORPUSCULAR HGB CONC 31.7 g/dl (32.0-36.5); MEAN CORPUSCULAR VOLUME 88.9 fl (80.0-96.0); MONO # 1.1 10^3/uL (0.0-0.8); MONO % 10.5 % (0.0-5.0); NEUTROPHILS # 5.9 10^3/uL (1.5-8.5); NEUTROPHILS % 58.7 % (36.0-66.0); PLATELET COUNT, AUTOMATED 170 10^3/uL (150-450); RED BLOOD COUNT 3.87 10^6/uL (4.00-5.40); WHITE BLOOD COUNT 10.1 10^3/uL (4.0-10.0)
[2020-06-08 02:54] LABS: ALBUMIN 3.2 GM/DL (3.2-5.2); ALT/SGPT 25 U/L (12-78); BILIRUBIN,DIRECT < 0.1 MG/DL (0.0-0.2); BILIRUBIN,TOTAL 0.1 MG/DL (0.2-1.0); BLOOD UREA NITROGEN 8 MG/DL (7-18); CARBON DIOXIDE LEVEL 29 MEQ/L (21-32); CHLORIDE LEVEL 110 MEQ/L (98-107); CREATININE FOR GFR 0.76 MG/DL (0.55-1.30); GLOMERULAR FILTRATION RATE > 60.0 (>60); GLUCOSE, FASTING 100 MG/DL (70-100); LIPASE 88 U/L (73-393); POTASSIUM SERUM 4.3 MEQ/L (3.5-5.1); SODIUM LEVEL 145 MEQ/L (136-145); TOTAL PROTEIN 6.2 GM/DL (6.4-8.2)
[2020-06-08 02:55] LABS: HCG, SERUM QUALITATIVE NEGATIVE (NEGATIVE)
== END | disposition home or self-care (01) ==
LOC: M ED 03-22 00:28
DX: R10.11 Right upper quadrant pain (principal); R11.0 Nausea; Z88.0 Allergy status to penicillin; Z91.040 Latex allergy status; Z79.84 Long term (current) use of oral hypoglycemic drugs; Z79.899 Other long term (current) drug therapy

== ENCOUNTER → 2020-03-28 | Emergency (ER) | payer OTHER ==
[~2020-03-28] MED LIST changes: +ACETAMINOPHEN 325 MG TAB As Ordered ONE; -DICYCLOMINE 10 MG CAP As Ordered ONE
[2020-05-12 10:45] LABS: BASO # 0.1 10^3/uL (0.0-0.2); BASO % 0.4 % (0.0-1.0); EOS # 0.3 10^3/uL (0.0-0.5); EOS % 2.3 % (0.0-3.0); HEMATOCRIT 36.5 % (36.0-47.0); HEMOGLOBIN 11.4 g/dl (12.0-15.5); LYMPH # 2.6 10^3/uL (1.5-5.0); LYMPH % 20.7 % (24.0-44.0); MEAN CORPUSCULAR HEMOGLOBIN 27.5 pg (27.0-33.0); MEAN CORPUSCULAR HGB CONC 31.2 g/dl (32.0-36.5); MONO # 1.3 10^3/uL (0.0-0.8); MONO % 10.3 % (0.0-5.0); NEUTROPHILS # 8.1 10^3/uL (1.5-8.5); NEUTROPHILS % 64.9 % (36.0-66.0); PLATELET COUNT, AUTOMATED 224 10^3/uL (150-450); RED BLOOD COUNT 4.15 10^6/uL (4.00-5.40); WHITE BLOOD COUNT 12.5 10^3/uL (4.0-10.0)
[2020-06-20 13:07] LABS: AMPHETAMINES LEVEL URINE NEGATIVE (NEGATIVE); BARBITURATES URINE NEGATIVE (NEGATIVE); BENZODIAZEPINES URINE NEGATIVE (NEGATIVE); CANNABINOIDS URINE NEGATIVE (NEGATIVE); COCAINE METABOLITE URINE NEGATIVE (NEGATIVE); METHADONE URINE NEGATIVE (NEGATIVE); OPIATES URINE NEGATIVE (NEGATIVE); PHENCYCLIDINE URINE NEGATIVE (NEGATIVE)
[2020-06-20 13:08] LABS: ALT/SGPT 32 U/L (12-78); BILIRUBIN,DIRECT < 0.1 MG/DL (0.0-0.2); BILIRUBIN,TOTAL 0.2 MG/DL (0.2-1.0); BLOOD UREA NITROGEN 17 MG/DL (7-18); CALCIUM LEVEL 8.6 MG/DL (8.5-10.1); CARBON DIOXIDE LEVEL 26 MEQ/L (21-32); CHLORIDE LEVEL 109 MEQ/L (98-107); CREATININE FOR GFR 0.82 MG/DL (0.55-1.30); GLOMERULAR FILTRATION RATE > 60.0 (>60); GLUCOSE, FASTING 100 MG/DL (70-100); POTASSIUM SERUM 4.1 MEQ/L (3.5-5.1); SODIUM LEVEL 140 MEQ/L (136-145); TOTAL PROTEIN 7.1 GM/DL (6.4-8.2)
[2020-06-20 13:09] LABS: ACETAMINOPHEN LEVEL < 2.0 UG/ML (10.0-30.0); ALBUMIN 3.7 GM/DL (3.2-5.2); ETHYL ALCOHOL (ETHANOL) < 0.003 % (0.000-0.010); SALICYLATE LEVEL < 1.7 MG/DL (5.0-30.0); VALPROIC ACID (DEPAKOTE) < 3.0 UG/ML (50.0-100.0)
== END ==
LOC: M ED 04:48
DX: F33.9 Major depressive disorder, recurrent, unspecified (principal); R45.851 Suicidal ideations; F43.10 Post-traumatic stress disorder, unspecified; Z79.899 Other long term (current) drug therapy; Z88.0 Allergy status to penicillin; Z88.1 Allergy status to other antibiotic agents; Z88.2 Allergy status to sulfonamides; Z88.8 Allergy status to other drugs, medicaments and biological substances; Z91.018 Allergy to other foods; Z91.040 Latex allergy status
CPT/HCPCS: 36415; 80048; 80076; 80164; 80307; 84443; 85025; 99285; G0480

== ENCOUNTER → 2020-03-31 | Emergency (ER) | payer OTHER ==
[~2020-03-31] MED LIST changes: -ACETAMINOPHEN 325 MG TAB As Ordered ONE
== END | disposition left against medical advice (07) ==
LOC: M ED
DX: Z53.21 Procedure and treatment not carried out due to patient leaving prior to being seen by health care provider (principal)

== ENCOUNTER 2020-04-01 12:10 | Emergency (ER) | payer OTHER ==
[~2020-04-01 12:10] MED LIST changes: -ACET-908 PO; -ACET1TAB55 PO; -ACET325T43 PO; -ARIP1TAB10 PO; -BENA25TA5; -BENZ200C70 PO; -BUPR1SUB33 SL; -BUPR1SUB4 SL; -CALA1LOT9 EXT; -CIPR-249; -CIPR500T3 PO; -DIPH25CA32 PO; -DOCU100C16 PO; -FAMO1TAB11 PO; -FAMO20TA PO; -FAMO40TA3 PO; -FLUO20CA22 PO; -HYDR-3363; -HYDR-3363 PO; -IBUP1TAB7 PO; -IBUP80TA PO; -METR-265; -METR-265 PO; -MM S100C PO; -NEOM28.32 EXT; -NITR100C2; -NITR100C2 PO; -OLAN10TA2 PO; -OMEP-218; -OMEP1CAP73 PO; -ONDA-83; -ONDA4TAB6; -PANT40TA29 PO; -PATIENT COMMENT; -PHEN-593 PO; -PRAZ5CAP; -PRAZ5CAP PO; -PRAZ5CAP22 PO; -PRIL20TA2; -PRIL20TA2 PO; -PROM12.56 PO; -PYRI0.4T; -SENN-23 PO; -TRAZ-252
[2020-04-01] MEDS ORDERED: BENA25TA5 (21:32)
[2020-04-01] MEDS ORDERED: TRAZ-252 (21:32)
[2020-04-02] MEDS ORDERED: QUET5TAB PO (03:03)
[2020-04-02] MEDS ORDERED: MACR100C43 PO (03:03)
[2020-04-02] MEDS ORDERED: PANT40TA29 PO (03:03)
[2020-04-02] MEDS ORDERED: NEOM28.32 EXT (03:03)
[2020-04-02] MEDS ORDERED: CALA1LOT9 EXT (03:03)
[2020-04-02] MEDS ORDERED: BENA25CA4 PO (03:03)
[2020-04-02] MEDS ORDERED: TRAZ-252 PO (03:03)
[2020-04-02] MEDS ORDERED: DEPA500T2 PO (03:03)
[2020-04-02] MEDS ORDERED: SENN-23 PO (03:03)
[2020-04-02] MEDS ORDERED: PRAZ2CAP PO (03:03)
[2020-04-02] MEDS ORDERED: NAPR-885 PO (03:03)
[2020-04-02] MEDS ORDERED: OLAN10TA2 PO (03:03)
[2020-04-02] MEDS ORDERED: ARIP1TAB PO (03:03)
[2020-04-02] MEDS ORDERED: CYCL-707 PO (03:03)
[2020-04-02] MEDS ORDERED: DOCU100C16 PO (03:03)
[2020-05-12 08:34] LABS: BASO % 0.1 % (0.0-1.0); EOS # 0.2 10^3/uL (0.0-0.5); EOS % 1.9 % (0.0-3.0); HEMATOCRIT 34.4 % (36.0-47.0); HEMOGLOBIN 10.7 g/dl (12.0-15.5); LYMPH # 1.4 10^3/uL (1.5-5.0); LYMPH % 17.3 % (24.0-44.0); MEAN CORPUSCULAR HEMOGLOBIN 27.9 pg (27.0-33.0); MEAN CORPUSCULAR HGB CONC 31.1 g/dl (32.0-36.5); MEAN CORPUSCULAR VOLUME 89.6 fl (80.0-96.0); MONO # 0.6 10^3/uL (0.0-0.8); MONO % 7.8 % (0.0-5.0); NEUTROPHILS # 5.8 10^3/uL (1.5-8.5); NEUTROPHILS % 72.4 % (36.0-66.0); PLATELET COUNT, AUTOMATED 169 10^3/uL (150-450); RED BLOOD COUNT 3.84 10^6/uL (4.00-5.40); WHITE BLOOD COUNT 8.1 10^3/uL (4.0-10.0)
[2020-05-26 04:17] LABS: HIV 1&2 SCREEN CENTAUR NEGATIVE (NEGATIVE)
[2020-05-26 04:24] LABS: HCG, SERUM QUALITATIVE NEGATIVE (NEGATIVE)
== END 2020-04-01 17:23 | disposition home or self-care (01) ==
LOC: M ED 12:10
DX: N83.201 Unspecified ovarian cyst, right side (principal); Z11.4 Encounter for screening for human immunodeficiency virus [HIV]; G89.29 Other chronic pain; F32.9 Major depressive disorder, single episode, unspecified; Z79.899 Other long term (current) drug therapy; Z88.0 Allergy status to penicillin; Z88.2 Allergy status to sulfonamides; Z88.8 Allergy status to other drugs, medicaments and biological substances; Z91.018 Allergy to other foods; Z91.040 Latex allergy status

== ENCOUNTER 2020-04-01 21:11 | Inpatient (IN) | payer OTHER ==
[~2020-04-01] VITALS: Ht 167.6 cm; Wt 150.0 kg
[2020-04-01] MEDS ORDERED: TRAZ-252 (21:32)
[2020-04-01] MEDS ORDERED: BENA25TA5 (21:32)
[2020-04-02 00:33] LABS: AMPHETAMINES LEVEL URINE NEGATIVE (NEGATIVE); BARBITURATES URINE NEGATIVE (NEGATIVE); BENZODIAZEPINES URINE NEGATIVE (NEGATIVE); CANNABINOIDS URINE NEGATIVE (NEGATIVE); COCAINE METABOLITE URINE NEGATIVE (NEGATIVE); METHADONE URINE NEGATIVE (NEGATIVE); OPIATES URINE NEGATIVE (NEGATIVE); PHENCYCLIDINE URINE NEGATIVE (NEGATIVE)
[2020-04-02 00:47] LABS: HEMATOCRIT 31.9 % (36.0-47.0); MEAN CORPUSCULAR HGB CONC 31.3 g/dl (32.0-36.5); MEAN CORPUSCULAR VOLUME 89.4 fl (80.0-96.0); PLATELET COUNT, AUTOMATED 143 10^3/uL (150-450); RED BLOOD COUNT 3.57 10^6/uL (4.00-5.40); WHITE BLOOD COUNT 7.9 10^3/uL (4.0-10.0)
[2020-04-02 01:44] LABS: HCG, SERUM QUALITATIVE NEGATIVE (NEGATIVE)
[2020-04-02 01:53] LABS: ACETAMINOPHEN LEVEL < 2.0 UG/ML (10.0-30.0); ALBUMIN 3.1 GM/DL (3.2-5.2); ALT/SGPT 25 U/L (12-78); BILIRUBIN,DIRECT < 0.1 MG/DL (0.0-0.2); BILIRUBIN,TOTAL 0.2 MG/DL (0.2-1.0); BLOOD UREA NITROGEN 14 MG/DL (7-18); CALCIUM LEVEL 8.6 MG/DL (8.5-10.1); CARBON DIOXIDE LEVEL 29 MEQ/L (21-32); CHLORIDE LEVEL 111 MEQ/L (98-107); CREATININE FOR GFR 0.65 MG/DL (0.55-1.30); ETHYL ALCOHOL (ETHANOL) < 0.003 % (0.000-0.010); GLOMERULAR FILTRATION RATE > 60.0 (>60); GLUCOSE, FASTING 82 MG/DL (70-100); POTASSIUM SERUM 4.2 MEQ/L (3.5-5.1); SALICYLATE LEVEL < 1.7 MG/DL (5.0-30.0); SODIUM LEVEL 143 MEQ/L (136-145)
[2020-04-02] MEDS ORDERED: MAALOX 30 ML SUSP *UDC PO PRN (02:30)
[2020-04-02] MEDS ORDERED: OLANZapine ORAL DISINTEGRATING TAB 5MG PO PRN (02:30)
[2020-04-02] MEDS ORDERED: MOM 30ML SUSPENSION UDC PO PRN (02:30)
[2020-04-02] MEDS ORDERED: DOCU100C16 PO (03:03)
[2020-04-02] MEDS ORDERED: TRAZ-252 PO (03:03)
[2020-04-02] MEDS ORDERED: PRAZ2CAP PO (03:03)
[2020-04-02] MEDS ORDERED: QUET5TAB PO (03:03)
[2020-04-02] MEDS ORDERED: SENN-23 PO (03:03)
[2020-04-02] MEDS ORDERED: DEPA500T2 PO (03:03)
[2020-04-02] MEDS ORDERED: ARIP1TAB PO (03:03)
[2020-04-02] MEDS ORDERED: MACR100C43 PO (03:03)
[2020-04-02] MEDS ORDERED: NAPR-885 PO (03:03)
[2020-04-02] MEDS ORDERED: CALA1LOT9 EXT (03:03)
[2020-04-02] MEDS ORDERED: BENA25CA4 PO (03:03)
[2020-04-02] MEDS ORDERED: PANT40TA29 PO (03:03)
[2020-04-02] MEDS ORDERED: OLAN10TA2 PO (03:03)
[2020-04-02] MEDS ORDERED: NEOM28.32 EXT (03:03)
[2020-04-02] MEDS ORDERED: CYCL-707 PO (03:03)
[2020-04-02 03:47] VITALS: BP 146/79
--- NOTE | 2020-04-02 08:38 | MHHPEPDOC ---
[facility] History & Physical History and Physical DATE OF ADMISSION: Apr 02, 2020 at 02:17 Subjective HPI: Bernice presents today to [facility] up regarding homicidal and suicidal ideation. She notes wanting to kill her family. Last night, her suicidal thoughts returned after having flashbacks. Regarding her suicidal thoughts, Bernice notes they have been the same. Regarding attending her mental health appointments, Bernice notes she had 2 appointments that were canceled by someone else. Tomorrow she has 2 appointments planned in the same time frame. Bernice was previously at [facility] for 1 night, in which she was put on CPAP. She has an infected blister, and her feet have been swelling due to unfitted shoes. Regarding housing, Bernice has been looking for a place with the right bianchi. Bernice does not get along with her family and is negative towards them. She states her family does not care about her. Her 20-year-old boyfriend is long-distance and lives in [place]. MEDICATIONS: Current medications include Abilify and Depakote, which do not help. Objective Mood: Euthymic. Speech: Spontaneous and Fluid. Cognition: Grossly intact. Thought Form: Linear and goal directed. Thought Content: Reports suicidal ideation, but does not appear to be depressed. Judgement: Baseline. Insight: Baseline. Assessment F33.8 Other recurrent depressive disorders F60.3 Borderline personality disorder Z76.5 Malingerer [conscious simulation] Plan Start off-label treatment in the form of Suboxone 2 mg, as she has tried multiple different agents and failed on them. The Patients suicidality I am questionable of. She has multiple admissions, how ever, she contradicts herself even in her chart, with statements that her suicidality is primary for attention. The Patient is generally malingering, as she primarily only comes when she has housing problems, which she currently has. Will observe overnight. However, the Suboxone could be helpful for her relational problem and clear situational depression quickly, and maybe an out patient option. However, there is evidence to support that single-use can be helpful for imminent suicidality in borderline individuals. The Patients treatment priorities are 1) risk for suicide 2) ineffective coping. Estimated length of stay is 1-2 days. Vital Signs Vital Signs Date Time Temp Pulse Resp B/P (MAP) Pulse Ox O2 Delivery O2 Flow Rate FiO2 04/02/20 03:47 99.4 100 18 146/79 (101) 98 Room Air Laboratory Data 24H Labs Laboratory Tests 2 04/01/20 23:35: Urine Opiates Screen NEGATIVE, Urine Methadone Screen NEGATIVE, Urine Barbiturates Screen NEGATIVE, Urine Phencyclidine Screen NEGATIVE, Urine Amphetamines Screen NEGATIVE, Urine Benzodiazepines Screen NEGATIVE, Urine Cocaine Metabolite Screen NEGATIVE, Urine Cannabinoids Screen NEGATIVE Medications Scheduled Aripiprazole (Aripiprazole) 10 Mg Tablet, 10 MG PO BID, (Reported) Benztropine Mesylate (Benztropine Mesylate) 2 Mg Tablet, 2 MG PO QHS, (Reported) Cholecalciferol (Vitamin D3) (Vitamin D3) 1,000 Unit Tablet, 1,000 UNITS PO DAILY, (Reported) Cyanocobalamin (Vitamin B-12) (Vitamin B-12) 1,000 Mcg Tablet, 1,000 MCG PO DAILY, (Reported) Cyclobenzaprine HCl (Cyclobenzaprine HCl) 10 Mg Tablet, 10 MG PO BID, (Reported) Diphenhydramine HCl (Benadryl) 25 Mg Capsule, 25 MG PO QHS, (Reported) Divalproex Sodium (Depakote ER) 500 Mg Tab.er.24h, 500 MG PO BID, (Reported) Docusate Sodium (Docusate Sodium) 100 Mg Capsule, 100 MG PO BID, (Reported) Metformin HCl (Metformin HCl) 500 Mg Tablet, 500 MG PO TID, (Reported) Neomycn/Bacitrc/Polymyx/Pramox (Neosporin + Pain Relief Oint) 28.3 Gm Oint...g., 1 DOSE EXT BID, (Reported) APPLY TO BUG BITES Nitrofurantoin Monohyd/M-Cryst (Macrobid 100 mg Capsule) 100 Mg Capsule, 100 MG PO BID, (Reported) Olanzapine (Olanzapine) 10 Mg Tablet, 10 MG PO QHS, (Reported) Pantoprazole Sodium (Pantoprazole Sodium) 40 Mg Tablet.dr, 40 MG PO DAILY, (Reported) Pramoxine HCl/Calamine (Calamine Medicated Lotion) 177 Ml Lotion, 1 DOSE EXT BID, (Reported) APPLY TO BUG BITES Prazosin Hcl (Prazosin HCl) 2 Mg Capsule, 2 MG PO QHS, (Reported) Quetiapine Fumarate (Quetiapine Fumarate) 50 Mg Tablet, 50 MG PO QHS, (Reported) Sennosides/Docusate Sodium (Senna-S Tablet) 1 Each Tablet, 1 TAB PO BID, (Reported) Sucralfate (Sucralfate) 1 Gm Tablet, 1 GRAM PO BID, (Reported) Scheduled PRN Naproxen (Naproxen) 500 Mg Tablet, 500 MG PO BID PRN for PAIN, (Reported) Trazodone HCl (Trazodone HCl) 50 Mg Tablet, 50 MG PO QHS PRN for INSOMNIA, (Reported) Allergies Coded Allergies: Mushroom (Verified Allergy, Unknown, 02/13/20) Penicillins (Verified Allergy, Unknown, 02/13/20) Sulfa (Sulfonamide Antibiotics) (Verified Allergy, Unknown, 02/13/20) TURKEY (Verified Allergy, Unknown, 02/13/20) emtricitabine (Verified Allergy, Unknown, 02/13/20) latex (Verified Allergy, Unknown, 02/13/20) raltegravir (Verified Allergy, Unknown, 02/13/20) sulfamethoxazole (Verified Allergy, Unknown, 02/13/20) tomato (Verified Allergy, Unknown, 02/13/20) trimethoprim (Verified Allergy, Unknown, 02/13/20) PHYLLIS RIZZO DO Apr 02, 2020 08:38
--- NOTE | 2020-04-02 09:36 | MHDSPDOC ---
[facility] Discharge Summary Discharge Summary DATE OF ADMISSION: Apr 02, 2020 at 02:17 DATE OF DISCHARGE: DISCHARGE DIAGNOSES: 1. . 2. . REASON FOR ADMISSION: CONSULTANTS INVOLVED: TREATMENT AND PROGRESS ON THE UNIT : . HOSPITAL COURSE: DISCHARGE ASSESSMENT: MENTAL STATUS EXAMINATION ON DISCHARGE: Patient is a -year old female, who is . Speech is . Language skills are . Thought processes including: . Thought content: . Abstract reasoning, and computation: . Description of associations: . Description of abnormal or psychotic thoughts: . Judgment: . Insight: . Orientation to . Recent and remote memory: . Attention span and concentration: . Language: . Fund of knowledge: . Mood: . Affect: . MEDICATIONS ON DISCHARGE: - for . - for . - for . PLAN/FOLLOWUP ARRANGEMENTS: . The amount of time spent in the coordination of care for this patient was approximately minutes. Vital Signs/I&Os Vital Signs Date Time Temp Pulse Resp B/P (MAP) Pulse Ox O2 Delivery O2 Flow Rate FiO2 04/02/20 03:47 99.4 100 18 146/79 (101) 98 Room Air Laboratory Data Labs 24H Laboratory Tests 2 04/01/20 23:35: Urine Opiates Screen NEGATIVE, Urine Methadone Screen NEGATIVE, Urine Barbiturates Screen NEGATIVE, Urine Phencyclidine Screen NEGATIVE, Urine Amphetamines Screen NEGATIVE, Urine Benzodiazepines Screen NEGATIVE, Urine Cocaine Metabolite Screen NEGATIVE, Urine Cannabinoids Screen NEGATIVE Medications Scheduled Aripiprazole (Aripiprazole) 10 Mg Tablet, 10 MG PO BID, (Reported) Benztropine Mesylate (Benztropine Mesylate) 2 Mg Tablet, 2 MG PO QHS, (Reported) Cholecalciferol (Vitamin D3) (Vitamin D3) 1,000 Unit Tablet, 1,000 UNITS PO DAILY, (Reported) Cyanocobalamin (Vitamin B-12) (Vitamin B-12) 1,000 Mcg Tablet, 1,000 MCG PO DAILY, (Reported) Cyclobenzaprine HCl (Cyclobenzaprine HCl) 10 Mg Tablet, 10 MG PO BID, (Reported) Diphenhydramine HCl (Benadryl) 25 Mg Capsule, 25 MG PO QHS, (Reported) Divalproex Sodium (Depakote ER) 500 Mg Tab.er.24h, 500 MG PO BID, (Reported) Docusate Sodium (Docusate Sodium) 100 Mg Capsule, 100 MG PO BID, (Reported) Metformin HCl (Metformin HCl) 500 Mg Tablet, 500 MG PO TID, (Reported) Neomycn/Bacitrc/Polymyx/Pramox (Neosporin + Pain Relief Oint) 28.3 Gm Oint...g., 1 DOSE EXT BID, (Reported) APPLY TO BUG BITES Nitrofurantoin Monohyd/M-Cryst (Macrobid 100 mg Capsule) 100 Mg Capsule, 100 MG PO BID, (Reported) Olanzapine (Olanzapine) 10 Mg Tablet, 10 MG PO QHS, (Reported) Pantoprazole Sodium (Pantoprazole Sodium) 40 Mg Tablet.dr, 40 MG PO DAILY, (Reported) Pramoxine HCl/Calamine (Calamine Medicated Lotion) 177 Ml Lotion, 1 DOSE EXT BID, (Reported) APPLY TO BUG BITES Prazosin Hcl (Prazosin HCl) 2 Mg Capsule, 2 MG PO QHS, (Reported) Quetiapine Fumarate (Quetiapine Fumarate) 50 Mg Tablet, 50 MG PO QHS, (Reported) Sennosides/Docusate Sodium (Senna-S Tablet) 1 Each Tablet, 1 TAB PO BID, (Reported) Sucralfate (Sucralfate) 1 Gm Tablet, 1 GRAM PO BID, (Reported) Scheduled PRN Naproxen (Naproxen) 500 Mg Tablet, 500 MG PO BID PRN for PAIN, (Reported) Trazodone HCl (Trazodone HCl) 50 Mg Tablet, 50 MG PO QHS PRN for INSOMNIA, (Reported) Allergies Coded Allergies: Mushroom (Verified Allergy, Unknown, 02/13/20) Penicillins (Verified Allergy, Unknown, 02/13/20) Sulfa (Sulfonamide Antibiotics) (Verified Allergy, Unknown, 02/13/20) TURKEY (Verified Allergy, Unknown, 02/13/20) emtricitabine (Verified Allergy, Unknown, 02/13/20) latex (Verified Allergy, Unknown, 02/13/20) raltegravir (Verified Allergy, Unknown, 02/13/20) sulfamethoxazole (Verified Allergy, Unknown, 02/13/20) tomato (Verified Allergy, Unknown, 02/13/20) trimethoprim (Verified Allergy, Unknown, 02/13/20) PHYLLIS RIZZO DO Apr 02, 2020 09:36
[2020-04-02] MEDS ORDERED: BUPRENORPHINE/NALOXONE 2-0.5MG SUBLINGUAL TABLET(SUBOXONE) SL ONE (10:30)
[2020-04-02] MEDS: ACETAMINOPHEN TAB 650MG DOSE (2X325MG) PO PRN ×2 (13:07→23:51)
[2020-04-02 16:47] VITALS: BP 116/65
[2020-04-02] MEDS ORDERED: NYSTATIN 100,000 UNITS/GM TOPICAL PWD 15 GM TOP PRN (18:45)
[2020-04-02] MEDS ORDERED: ONDANSETRON 4 MG ORAL DISINTEGRATING TAB PO PRN (18:45)
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
[2020-04-02] MEDS: traZODone 50 MG TAB PO PRN (20:19)
[2020-04-02] MEDS: NAPROXEN 250 MG TAB PO PRN (20:20)
[2020-04-03 06:12] LABS: APPEARANCE, URINE MANUAL CLOUDY (CLEAR); COLOR, URINE MANUAL YELLOW (YELLOW); PROTEIN, URINE MANUAL TRACE mg/dL (NEGATIVE); SPECIFIC GRAVITY,URINE MANUAL 1.025 (1.002-1.035)
[2020-04-03 06:13] LABS: BILIRUBIN, URINE MANUAL NEGATIVE (NEGATIVE); BLOOD URINE MANUAL TRACE (NEGATIVE); GLUCOSE, URINE (UA) MANUAL NEGATIVE (NEGATIVE); KETONE, URINE MANUAL NEGATIVE (NEGATIVE); LEUKOCYTE ESTERASE, URINE MAN POSITIVE (NEGATIVE); NITRITE, URINE MANUAL NEGATIVE (NEGATIVE); UROBILINOGEN, URINE MANUAL NORMAL (NORMAL)
[2020-04-03 06:20] LABS: AMORPHOUS SEDIMENT, URINE SMALL AMOUNT (NEGATIVE); BACTERIA, URINE MOD AMOUNT; HYALINE CAST, URINE NONE SEEN /lpf (0-1); SQUAMOUS EPITHELIAL CELL URINE SMALL AMOUNT /hpf (SMALL AMT); WBC, URINE 30-40 /hpf (0-3)
[2020-04-03 06:21] LABS: MUCUS, URINE MOD AMOUNT (NEGATIVE)
[2020-04-03 06:53] VITALS: BP 134/64
[2020-04-03] MEDS: NAPROXEN 250 MG TAB PO PRN ×2 (07:48→20:21)
[2020-04-03] MEDS: BUPRENORPHINE/NALOXONE 2-0.5MG SUBLINGUAL TABLET(SUBOXONE) SL SCH (08:25)
--- NOTE | 2020-04-03 11:47 | MHDSPDOC ---
[facility] Discharge Summary Discharge Summary DATE OF ADMISSION: Apr 02, 2020 at 02:17 DATE OF DISCHARGE: DISCHARGE DIAGNOSES: 1. . 2. . REASON FOR ADMISSION: CONSULTANTS INVOLVED: TREATMENT AND PROGRESS ON THE UNIT : . HOSPITAL COURSE: DISCHARGE ASSESSMENT: MENTAL STATUS EXAMINATION ON DISCHARGE: Patient is a -year old female, who is . Speech is . Language skills are . Thought processes including: . Thought content: . Abstract reasoning, and computation: . Description of associations: . Description of abnormal or psychotic thoughts: . Judgment: . Insight: . Orientation to . Recent and remote memory: . Attention span and concentration: . Language: . Fund of knowledge: . Mood: . Affect: . MEDICATIONS ON DISCHARGE: - for . - for . - for . PLAN/FOLLOWUP ARRANGEMENTS: . The amount of time spent in the coordination of care for this patient was approximately minutes. Vital Signs/I&Os Vital Signs Date Time Temp Pulse Resp B/P (MAP) Pulse Ox O2 Delivery O2 Flow Rate FiO2 04/03/20 06:53 97.1 75 18 134/64 (87) 04/02/20 03:47 98 Room Air Laboratory Data Labs 24H Laboratory Tests 2 04/03/20 05:50: Bedside Urine Color (LAB) YELLOW, Bedside Urine Appearance (LAB) CLOUDYH, Bedside Urine pH (LAB) 6.0, Bedside Urine Specific [place] (LAB 1.025, Bedside Urine Protein (LAB) TRACEH, Bedside Urine Glucose (UA) NEGATIVE, Bedside Urine Ketones (LAB) NEGATIVE, Bedside Urine Blood TRACEH, Bedside Urine Nitrite (LAB) NEGATIVE, Bedside Urine Bilirubin (LAB) NEGATIVE, Bedside Urine Urobilinogen (LAB) NORMAL, Bedside Urine Leukocyte Esterase (L POSITIVEH, Urine Sediment Examination PERFORMED, Urine RBC 1-3, Urine WBC 30-40H, Urine Squamous Epithelial Cells SMALL AMOUNT, Urine Amorphous Sediment SMALL AMOUNTH, Urine Bacteria MOD AMOUNTH, Urine Hyaline Casts NONE SEEN, Urine Mucus MOD AMOUNTH Medications Scheduled Buprenorphine HCl/Naloxone HCl (Buprenorphn-Naloxn 2-0.5 mg Sl) 1 Each Tab.subl, 1 TAB SL DAILY for mood for 7 Days, #7 Docusate Sodium (Docusate Sodium) 100 Mg Capsule, 100 MG PO BID, (Reported) Nitrofurantoin Monohyd/M-Cryst (Macrobid 100 mg Capsule) 100 Mg Capsule, 100 MG PO BID, (Reported) Pantoprazole Sodium (Pantoprazole Sodium) 40 Mg Tablet.dr, 40 MG PO DAILY, (Reported) Pramoxine HCl/Calamine (Calamine Medicated Lotion) 177 Ml Lotion, 1 DOSE EXT BID, (Reported) APPLY TO BUG BITES Sennosides/Docusate Sodium (Senna-S Tablet) 1 Each Tablet, 1 TAB PO BID, (Reported) Sucralfate (Sucralfate) 1 Gm Tablet, 1 GRAM PO BID, (Reported) Scheduled PRN Naproxen (Naproxen) 500 Mg Tablet, 500 MG PO BID PRN for PAIN, (Reported) Allergies Coded Allergies: Mushroom (Verified Allergy, Unknown, 02/13/20) Penicillins (Verified Allergy, Unknown, 02/13/20) Sulfa (Sulfonamide Antibiotics) (Verified Allergy, Unknown, 02/13/20) TURKEY (Verified Allergy, Unknown, 02/13/20) emtricitabine (Verified Allergy, Unknown, 02/13/20) latex (Verified Allergy, Unknown, 02/13/20) raltegravir (Verified Allergy, Unknown, 02/13/20) sulfamethoxazole (Verified Allergy, Unknown, 02/13/20) tomato (Verified Allergy, Unknown, 02/13/20) trimethoprim (Verified Allergy, Unknown, 02/13/20) PHYLLIS RIZZO DO Apr 03, 2020 11:47
[2020-04-03] MEDS ORDERED: BUPR1SUB33 SL (11:57)
--- NOTE | 2020-04-03 12:10 | MHIPNPDOC ---
[facility] Progress Note Progress Note DATE OF SERVICE: 04/03/20 Subjective HPI: Patient I met with today, where initially she was triaged for discharge had been discussed; however, the patient was feeling very unsure about this and subsequently wanted to stay another day. The patient reports that her SI comes and goes. However, it appears quite clear that the patient had been denying SI and HI in the exception of when discharge was approached, but the patient discussed that she would feel more amenable tomorrows, reporting that she is tolerating the Buprenorphine well with better improvement of chronic pain and depression. Objective Appearance: Appears to be stated age. Well nourished. Behavior: Cooperative with good eye contact. Engaged. Pleasant. Affect: Full range. Appropriate to context. Mood: Appropriately reactive. Euthymic. Generally good. Speech: Spontaneous and Fluid. Normal volume. Normal rate. Motor: No gross motor abnormalities. Cognition: Alert, Attentive, and Oriented to person, place, time. 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 No formal testing. Thought Form: Linear and goal directed. Thought Content: "sometimes I get suicidal thoughts" vague with description, appears to be at odds with affect Perception: No perceptual abnormalities noted. Judgement baselined limited Insight: baseline limited Assessment F60.3 Borderline personality disorder Z76.5 Malingerer [conscious simulation] F33.9 Major depressive disorder, recurrent, unspecified vs adjustment Plan Observe tonight, likely discharge tomorrow. Converted to voluntary this evening, and she does not meet criteria in my opinion to be extended onto involuntary. Vital Signs Vital Signs Date Time Temp Pulse Resp B/P (MAP) Pulse Ox O2 Delivery O2 Flow Rate FiO2 04/03/20 06:53 97.1 75 18 134/64 (87) 04/02/20 03:47 98 Room Air Laboratory Data 24H Labs Laboratory Tests 2 04/03/20 05:50: Bedside Urine Color (LAB) YELLOW, Bedside Urine Appearance (LAB) CLOUDYH, Bedside Urine pH (LAB) 6.0, Bedside Urine Specific [place] (LAB 1.025, Bedside Urine Protein (LAB) TRACEH, Bedside Urine Glucose (UA) NEGATIVE, Bedside Urine Ketones (LAB) NEGATIVE, Bedside Urine Blood TRACEH, Bedside Urine Nitrite (LAB) NEGATIVE, Bedside Urine Bilirubin (LAB) NEGATIVE, Bedside Urine Urobilinogen (LAB) NORMAL, Bedside Urine Leukocyte Esterase (L POSITIVEH, Urine Sediment Exa mination PERFORMED, Urine RBC 1-3, Urine WBC 30-40H, Urine Squamous Epithelial Cells SMALL AMOUNT, Urine Amorphous Sediment SMALL AMOUNTH, Urine Bacteria MOD AMOUNTH, Urine Hyaline Casts NONE SEEN, Urine Mucus MOD AMOUNTH Current Medications Current Medications Medications (Trade) Dose Ordered Sig/Susy Route PRN Reason Start Time Stop Time Status Last Admin Dose Admin Acetaminophen (Tylenol Tab) 650 mg Q6HP PRN PO HEADACHE or DISCOMFORT 04/02/20 02:30 04/02/20 23:51 Al Hydrox/Mg Hydrox/Simethicone (Mylanta) 30 ml Q4HP PRN PO HEARTBURN/INDIGESTION 04/02/20 02:30 04/02/20 15:04 Buprenorphine/ Naloxone (Suboxone 2/ 0.5mg) 1 tab DAILY SL 04/03/20 09:00 04/03/20 08:25 Home Med (Med Rec Complete!) ASDIRECTED XX 04/02/20 03:15 04/02/20 03:08 DC Magnesium Hydroxide (Milk Of Magnesia) 30 ml DAILYPRN PRN PO CONSTIPATION 04/02/20 02:30 Naproxen (Naprosyn) 500 mg BIDP PRN PO Migraine 04/02/20 19:15 04/03/20 07:48 Nystatin (Mycostatin Powder, Nystop) 1 dose BIDP PRN TOP RASH 04/02/20 18:45 Olanzapine (ZyPREXA ZYDIS) 5 mg Q6HP PRN PO AGITATION/ANXIETY 04/02/20 02:30 Ondansetron HCl (Zofran Odt) 4 mg Q6HP PRN PO NAUSEA OR VOMITING 04/02/20 18:45 04/03/20 11:54 Trazodone HCl (Desyrel) 50 mg QHSP PRN PO INSOMNIA 04/02/20 02:30 04/02/20 20:19 Allergies Coded Allergies: Mushroom (Verified Allergy, Unknown, 02/13/20) Penicillins (Verified Allergy, Unknown, 02/13/20) Sulfa (Sulfonamide Antibiotics) (Verified Allergy, Unknown, 02/13/20) TURKEY (Verified Allergy, Unknown, 02/13/20) emtricitabine (Verified Allergy, Unknown, 02/13/20) latex (Verified Allergy, Unknown, 02/13/20) raltegravir (Verified Allergy, Unknown, 02/13/20) sulfamethoxazole (Verified Allergy, Unknown, 02/13/20) tomato (Verified Allergy, Unknown, 02/13/20) trimethoprim (Verified Allergy, Unknown, 02/13/20) PHYLLIS RIZZO DO Apr 03, 2020 12:09
[2020-04-03] MEDS: ACETAMINOPHEN TAB 650MG DOSE (2X325MG) PO PRN ×2 (14:53→20:20)
[2020-04-03 18:00] VITALS: BP 132/61
[2020-04-03] MEDS: traZODone 50 MG TAB PO PRN (20:20)
[2020-04-04 07:16] VITALS: BP 131/67
[2020-04-04] MEDS: NAPROXEN 250 MG TAB PO PRN (08:01)
--- NOTE | 2020-04-04 08:01 | MHDSPDOC ---
[facility] Discharge Summary Discharge Summary DATE OF ADMISSION: Apr 02, 2020 at 02:17 DATE OF DISCHARGE: Apr 04, 2020 at 11:05 DISCHARGE DIAGNOSES: F60.3 Borderline personality disorder Z76.5 Malingerer [conscious simulation] F33.9 Major depressive disorder, recurrent, unspecified CONSULTANTS INVOLVED:[ None (basic hospitalist screening)] REASON FOR ADMISSION & TREATMENT AND PROGRESS ON THE UNIT : Bernice presented for concerns regarding her suicidal thoughts and was admitted to the inpatient mental health unit. She has tried multiple medications and they have failed. The patient was admitted and observed for her ideation that centered around her being attention-seeking. The patients borderline personality disorder has yielded to poor results for her treatment. The Buprenorphine taken in a low dose showed some evidence on helping modulate some separation anxiety but made treatment for her borderline personality disorder difficult. Bernice stayed a few days and saw her suicidality disappear quickly and reappear when the topic of discharge was mentioned. On the day of discharge, she made improvements and was feeling ready for discharge showing no signs of suicidal or homicidal ideation and no auditory and visual hallucinations. MEDICATIONS: Patient was trying a low dose of Buprenorphine for chronic pain, anxiety and adjustment difficulties. DISCHARGE ASSESSMENT[stable] Legal status considerations: The patient at the time of discharge did not meet criteria for involuntary admission/extension due to having a basline mental status exam, baseline insight into the situation, They are engaged in the discharge process, as well as being friendly and amenable in behavioral control and havent been engaging in any observed concerning behavior or ideation recently. They decline voluntary extension/admission at this time and must be discharged in good saniya, as Im unable to make a case for holding the patient against their will. They may have historical risk factors of admissions and other interactions with psychiatry however, those are not modifiable from a clinical perspective. The patient will need to be discharged in good saniya. MENTAL STATUS EXAMINATION ON DISCHARGE: [General: Well dressed with good hygiene Speech: Spontaneous and fluid Thought processes: Linear and logical Thought content: Future orientated Abstract reasoning, and computation: Intact Description of associations: Intact Description of abnormal or psychotic thoughts:Denies any suicidal or homicidal ideation. Denies any auditory or visual hallucinations. Does not appear to be responding to internal stimuli. Does not appear to be endorsing any bizarre or paranoid ideation. Judgment: baseline Insight: baseline Orientation: Alert and orientated 3 Recent and remote memory: Intact Attention span and concentration: Intact Fund of knowledge: Adequate Mood: "okay" Affect: Euthymic with a full range] PLAN/FOLLOWUP ARRANGEMENTS: Follow up appointments made (PCP and MH in 5 days of D/C date) and safety plan completed. Safety Planning aspects completed prior to discharge [Medication supplies limited to 7 days with 4 refills to prevent accumulation to OD] [RN reviewed crisis hotline information and other aspects to empower patient to access care in interim before next appointment.] The amount of time spent in the coordination of care for this patient was approximately 30 minutes. Vital Signs/I&Os Vital Signs Date Time Temp Pulse Resp B/P (MAP) Pulse Ox O2 Delivery O2 Flow Rate FiO2 04/04/20 07:16 99.3 81 14 131/67 (88) 96 Room Air Medications Scheduled Buprenorphine HCl/Naloxone HCl (Buprenorphn-Naloxn 2-0.5 mg Sl) 1 Each Tab.subl, 1 TAB SL DAILY, (Reported) Docusate Sodium (Docusate Sodium) 100 Mg Capsule, 100 MG PO BID, (Reported) Nitrofurantoin Monohyd/M-Cryst (Macrobid 100 mg Capsule) 100 Mg Capsule, 100 MG PO BID, (Reported) Pantoprazole Sodium (Pantoprazole Sodium) 40 Mg Tablet.dr, 40 MG PO DAILY, (Reported) Pramoxine HCl/Calamine (Calamine Medicated Lotion) 177 Ml Lotion, 1 DOSE EXT BID, (Reported) APPLY TO BUG BITES Sennosides/Docusate Sodium (Senna-S Tablet) 1 Each Tablet, 1 TAB PO BID, (Reported) Scheduled PRN Naproxen (Naproxen) 500 Mg Tablet, 500 MG PO BID PRN for PAIN, (Reported) Allergies Coded Allergies: Mushroom (Verified Allergy, Unknown, 04/05/20) Penicillins (Verified Allergy, Unknown, 04/05/20) Sulfa (Sulfonamide Antibiotics) (Verified Allergy, Unknown, 04/05/20) TURKEY (Verified Allergy, Unknown, 04/05/20) emtricitabine (Verified Allergy, Unknown, 04/05/20) latex (Verified Allergy, Unknown, 04/05/20) raltegravir (Verified Allergy, Unknown, 04/05/20) sulfamethoxazole (Verified Allergy, Unknown, 04/05/20) tomato (Verified Allergy, Unknown, 04/05/20) trimethoprim (Verified Allergy, Unknown, 04/05/20) PHYLLIS RIZZO DO Apr 04, 2020 08:01
[2020-04-04] MEDS: BUPRENORPHINE/NALOXONE 2-0.5MG SUBLINGUAL TABLET(SUBOXONE) SL SCH (08:07)
[2020-04-05] MEDS ORDERED: PROM12.56 PO (01:44)
[2020-04-05] MEDS ORDERED: BUPR1SUB4 SL (19:31)
== END 2020-04-04 11:05 | disposition home or self-care (01) | DRG 752 ==
LOC: M ED 21:11 → M ED INP 04-02 02:17 → M PSY 04-02 03:21
PROVIDERS: ADMIT Psychiatry & Neurology Psychiatry; ATTEND Psychiatry & Neurology Addiction Medicine
DX: F60.3 Borderline personality disorder (principal); F33.9 Major depressive disorder, recurrent, unspecified; I10 Essential (primary) hypertension; Z76.5 Malingerer [conscious simulation]; Z79.899 Other long term (current) drug therapy; Z88.0 Allergy status to penicillin; Z91.013 Allergy to seafood; Z91.040 Latex allergy status; Z88.2 Allergy status to sulfonamides; E78.5 Hyperlipidemia, unspecified; E66.9 Obesity, unspecified; Z87.891 Personal history of nicotine dependence; G43.909 Migraine, unspecified, not intractable, without status migrainosus

== ENCOUNTER 2020-04-04 23:11 | Emergency (ER) | payer OTHER ==
[~2020-04-04] VITALS: Ht 167.6 cm; Wt 158.7 kg
[~2020-04-04 23:11] MED LIST changes: +BENA25TA5; +BUPR1SUB33 SL; +CALA1LOT9 EXT; +DOCU100C16 PO; +NEOM28.32 EXT; +OLAN10TA2 PO; +PANT40TA29 PO; +SENN-23 PO; +TRAZ-252
[2020-04-04 23:12] VITALS: BP 133/69
[2020-04-05] MEDS ORDERED: PROMETHAZINE 25 MG TAB PO ONE (01:00)
[2020-04-05] MEDS ORDERED: PROM12.56 PO (01:44)
[2020-04-05] MEDS ORDERED: BUPR1SUB4 SL (19:31)
== END 2020-04-05 02:46 | disposition home or self-care (01) ==
LOC: M ED 23:11
DX: R11.0 Nausea (principal); Z79.891 Long term (current) use of opiate analgesic; N92.6 Irregular menstruation, unspecified; I10 Essential (primary) hypertension; K21.9 Gastro-esophageal reflux disease without esophagitis; F43.10 Post-traumatic stress disorder, unspecified; F31.9 Bipolar disorder, unspecified; F20.9 Schizophrenia, unspecified; F60.3 Borderline personality disorder; R73.03 Prediabetes; G43.909 Migraine, unspecified, not intractable, without status migrainosus; J45.909 Unspecified asthma, uncomplicated; Z87.42 Personal history of other diseases of the female genital tract; Z79.899 Other long term (current) drug therapy

== ENCOUNTER 2020-04-05 03:31 | Emergency (ER) | payer OTHER ==
[~2020-04-05 03:31] MED LIST changes: +PROM12.56 PO
[2020-04-05 04:04] VITALS: BP 144/89
[2020-04-05] MEDS ORDERED: BUPR1SUB4 SL (19:31)
== END 2020-04-05 04:35 | disposition home or self-care (01) ==
LOC: M ED 03:31
DX: Z76.5 Malingerer [conscious simulation] (principal); F91.8 Other conduct disorders; F60.3 Borderline personality disorder; Z79.891 Long term (current) use of opiate analgesic; Z79.899 Other long term (current) drug therapy; Z88.0 Allergy status to penicillin; Z88.2 Allergy status to sulfonamides; Z88.1 Allergy status to other antibiotic agents; Z91.018 Allergy to other foods

== ENCOUNTER 2020-04-05 14:06 | Inpatient (IN) | payer OTHER ==
[~2020-04-05] VITALS: Ht 167.6 cm; Wt 158.0 kg
[2020-04-05] MEDS ORDERED: NS 1,000 ML IV ONE (14:45)
[2020-04-05] MEDS ORDERED: ONDANSETRON 4MG/2ML VIAL IV ONE (14:45)
[2020-04-05 15:05] LABS: BASO % 0.3 % (0.0-1.0); EOS # 0.2 10^3/uL (0.0-0.5); EOS % 3.6 % (0.0-3.0); HEMATOCRIT 36.3 % (36.0-47.0); HEMOGLOBIN 11.2 g/dl (12.0-15.5); LYMPH # 1.2 10^3/uL (1.5-5.0); LYMPH % 19.3 % (24.0-44.0); MEAN CORPUSCULAR HEMOGLOBIN 27.7 pg (27.0-33.0); MEAN CORPUSCULAR HGB CONC 30.9 g/dl (32.0-36.5); MEAN CORPUSCULAR VOLUME 89.9 fl (80.0-96.0); MONO # 0.6 10^3/uL (0.0-0.8); MONO % 9.5 % (0.0-5.0); NEUTROPHILS # 4.3 10^3/uL (1.5-8.5); NEUTROPHILS % 67.1 % (36.0-66.0); PLATELET COUNT, AUTOMATED 152 10^3/uL (150-450); RED BLOOD COUNT 4.04 10^6/uL (4.00-5.40); WHITE BLOOD COUNT 6.4 10^3/uL (4.0-10.0)
[2020-04-05 15:40] LABS: HCG, SERUM QUALITATIVE NEGATIVE (NEGATIVE)
[2020-04-05 15:49] LABS: ACETAMINOPHEN LEVEL < 2.0 UG/ML (10.0-30.0); ALBUMIN 3.6 GM/DL (3.2-5.2); ALT/SGPT 37 U/L (12-78); BILIRUBIN,DIRECT 0.1 MG/DL (0.0-0.2); BILIRUBIN,TOTAL 0.3 MG/DL (0.2-1.0); BLOOD UREA NITROGEN 11 MG/DL (7-18); CALCIUM LEVEL 8.6 MG/DL (8.5-10.1); CARBON DIOXIDE LEVEL 26 MEQ/L (21-32); CHLORIDE LEVEL 110 MEQ/L (98-107); CREATININE FOR GFR 0.83 MG/DL (0.55-1.30); ETHYL ALCOHOL (ETHANOL) < 0.003 % (0.000-0.010); GLOMERULAR FILTRATION RATE > 60.0 (>60); GLUCOSE, FASTING 87 MG/DL (70-100); LIPASE 58 U/L (73-393); POTASSIUM SERUM 3.8 MEQ/L (3.5-5.1); SALICYLATE LEVEL < 1.7 MG/DL (5.0-30.0); SODIUM LEVEL 139 MEQ/L (136-145); TOTAL PROTEIN 6.7 GM/DL (6.4-8.2)
[2020-04-05 17:30] LABS: AMPHETAMINES LEVEL URINE NEGATIVE (NEGATIVE); BARBITURATES URINE NEGATIVE (NEGATIVE); BENZODIAZEPINES URINE NEGATIVE (NEGATIVE); CANNABINOIDS URINE NEGATIVE (NEGATIVE); COCAINE METABOLITE URINE NEGATIVE (NEGATIVE); METHADONE URINE NEGATIVE (NEGATIVE); OPIATES URINE NEGATIVE (NEGATIVE); PHENCYCLIDINE URINE NEGATIVE (NEGATIVE)
[2020-04-05] MEDS ORDERED: MOM 30ML SUSPENSION UDC PO PRN (19:00)
[2020-04-05] MEDS ORDERED: MAALOX 30 ML SUSP *UDC PO PRN (19:00)
[2020-04-05] MEDS ORDERED: BUPR1SUB4 SL (19:31)
[2020-04-06 00:26] VITALS: BP 131/79
[2020-04-06 06:42] VITALS: BP 111/52
[2020-04-06] MEDS ORDERED: NITROFURANTOIN (MACROBID) 100 MG CAP PO SCH (09:00)
[2020-04-06 12:00] VITALS: BP 134/83
[2020-04-06] MEDS: PANTOPRAZOLE 40MG TAB (PROTONIX) PO SCH (14:06)
[2020-04-06] MEDS: SENOKOT S TAB PO SCH ×2 (14:06→20:12)
[2020-04-06] MEDS: DOCUSATE SODIUM 100 MG CAP PO SCH ×2 (14:06→20:13)
[2020-04-06] MEDS: NAPROXEN 250 MG TAB PO PRN ×2 (14:07→20:38)
[2020-04-06 16:19] VITALS: BP 121/69
[2020-04-06 16:24] VITALS: BP 135/84
--- NOTE | 2020-04-06 16:25 | HPEPDOC ---
[facility] Medical History & Physical Date of Admission Apr 05, 2020 Date of Service: Apr 06, 2020 Attending Physician: Han Hemphill History and Physical Pt seen and examined with female nurse at bedside. HISTORY OF PRESENT ILLNESS: 20 y/o F PMHX with Hyperlipidemia, Hypertension, Obesity, multiple admission in [facility]. Hospitalist consultation placed for eval of dysuria. Pt states she's had dysuria for a few days. Has a sore throat and a nonproductive cough. State she was recently treated for PNA. Also notes boils on b/l breasts L>R that have popped and are not drainaing. Also c/o groin fungal rash. Denies CP/SOB/palpitations. No N/V/Abd pain,. Currently under care of Dr. Hemphill in [facility]. PAST MEDICAL HISTORY: As per HPI PAST SURGICAL HISTORY: Appendectomy, tonsillectomy, Ovarian cyst removal SOCIAL HISTORY: former Smoker, quit less than 1 year, greater than 1 pack/day, cigarettes. No alcohol or drugs. FAMILY HISTORY: non contributory ALLERGIES: Please see below. REVIEW OF SYSTEMS: HEENT: Denies sore throat/headache CARDIOVASCULAR: Denies chest pain/palpitations RESPIRATORY: Denies shortness of breath.+ sore throat, non productive cough GASTROINTESTINAL: denies nausea/vomiting GENITOURINARY: + dysuria/urinary urgency. MUSCULOSKELETAL: Denies myalgias/arthralgias NEUROLOGICAL: Denies any focal weakness HOME MEDICATIONS: Please see below. PHYSICAL EXAMINATION: Vitals: (see below) General: No acute distress, laying comfortably in bed. HEENT: Moist mucous membranes. Neck: No JVD or lymphadenopathy Cardiac: RRR, No murmurs Pulm: Clear to auscultation b/l. No wheezing, rhonchi Abd: NT/ND + BS. obese Ext: No edema or cyanosis. groin skin folds with fungal rash Breasts with boils that recently broke open; not currently draining. They appear to be superficial at this time with mild cellulitis surrounding them. LABORATORY DATA: See below. ASSESSMENT/PLAN: 1. Dysuria, ? UTI. Repeat UA/Cx 2. Boils on breasts - doxycycline 3. Groin fungal rash - nystatin 4. PTSD - management per Dr. Hemphill in [facility] Thank you for the consultation. Please call for questions. Vital Signs Vital Signs Date Time Temp Pulse Resp B/P (MAP) Pulse Ox O2 Delivery O2 Flow Rate FiO2 04/06/20 12:00 98.0 94 16 134/83 (100) 04/05/20 15:28 96 Room Air Laboratory Data Labs 24H Laboratory Tests 2 04/05/20 16:25: Urine Color YELLOW, Urine Appearance CLOUDYH, Urine pH 5.0, Urine Specific [place] 1.015, Urine Protein 1+H, Urine Glucose (UA) 1+H, Urine Ketones NEGATIVE, Urine Blood 2+H, Urine Nitrite NEGATIVE, Urine Bilirubin NEGATIVE, Urine Urobilinogen 0.2, Urine Leukocyte Esterase 3+H, Urine WBC (Auto) 163H, Urine RBC (Auto) 22H, Urine Hyaline Casts (Auto) 0, Urine Bacteria (Auto) 2+H, Urine Squamous Epithelial Cells 3, Urine Mucus (Auto) SMALL, Urine Sperm (Auto) , Urine Opiates Screen NEGATIVE, Urine Methadone Screen NEGATIVE, Urine Barbiturates Screen NEGATIVE, Urine Phencyclidine Screen NEGATIVE, Urine Amphetamines Screen NEGATIVE, Urine Benzodiazepines Screen NEGATIVE, Urine Cocaine Metabolite Screen NEGATIVE, Urine Cannabinoids Screen NEGATIVE Microbiology Microbiology 04/05/20 Urine Culture - Final, Complete Home Medications Scheduled Famotidine (Famotidine) 20 Mg Tablet, 20 MG PO BID for gerd Pantoprazole Sodium (Pantoprazole Sodium) 40 Mg Tablet.dr, 40 MG PO DAILY for gerd Scheduled PRN Diphenhydramine HCl (Diphenhydramine HCl) 25 Mg Capsule, 25 MG PO QHSP PRN for ANXIETY Ondansetron HCl (Ondansetron HCl) 4 Mg Tablet, 4 MG PO Q8H PRN for NAUSEA OR VOMITING Allergies Coded Allergies: Mushroom (Verified Allergy, Unknown, 04/05/20) Penicillins (Verified Allergy, Unknown, 04/05/20) Sulfa (Sulfonamide Antibiotics) (Verified Allergy, Unknown, 04/05/20) TURKEY (Verified Allergy, Unknown, 04/05/20) emtricitabine (Verified Allergy, Unknown, 04/05/20) latex (Verified Allergy, Unknown, 04/05/20) raltegravir (Verified Allergy, Unknown, 04/05/20) sulfamethoxazole (Verified Allergy, Unknown, 04/05/20) tomato (Verified Allergy, Unknown, 04/05/20) trimethoprim (Verified Allergy, Unknown, 04/05/20) A-FIB/CHADSVASC A-FIB History Current/History of A-Fib/PAF?: No OPAL RIVERA MD Apr 06, 2020 16:25
[2020-04-06 17:05] LABS: APPEARANCE, URINE CLOUDY (CLEAR); BACTERIA, URINE AUTO 1+ (NEGATIVE); BILIRUBIN, URINE AUTO NEGATIVE (NEGATIVE); BLOOD, URINE BLOOD 1+ (NEGATIVE); COLOR, URINE YELLOW (YELLOW); GLUCOSE, URINE (UA) AUTO NEGATIVE (NEGATIVE); KETONE, URINE AUTO NEGATIVE (NEGATIVE); LEUKOCYTE ESTERASE, URINE AUTO 3+ (NEGATIVE); MUCUS, URINE SMALL (NEGATIVE); NITRITE, URINE AUTO NEGATIVE (NEGATIVE); PROTEIN, URINE AUTO NEGATIVE (NEGATIVE); RBC, URINE AUTO 15 /HPF (0-3); SPECIFIC GRAVITY URINE AUTO 1.004 (1.002-1.035); SQUAMOUS EPITHELIAL CELL UR AU 1 /HPF (0-6); UROBILINOGEN, URINE AUTO 0.2 mg/dL (0.0-2.0); WBC, URINE AUTO 110 /HPF (0-3)
[2020-04-06] MEDS: LACTOBACILLUS ACIDOPHILUS CAP (BACID) PO SCH (17:06)
[2020-04-06] MEDS ORDERED: LevoFLOXacin 500 MG TABLET PO SCH (18:00)
[2020-04-06] MEDS: NYSTATIN OINTMENT 15 GM TOP SCH ×2 (18:33→20:14)
[2020-04-06] MEDS: DOXYCYCLINE HYCLATE 100MG TABLET PO SCH (20:12)
[2020-04-06] MEDS: NITROFURANTOIN (MACROBID) 100 MG CAP PO SCH (20:12)
[2020-04-06] MEDS: traZODone 50 MG TAB PO PRN (20:12)
[2020-04-06] MEDS: CEPACOL LOZENGE PO PRN (20:13)
[2020-04-06] MEDS: guaiFENesin ER 600 MG TAB PO SCH (20:13)
[2020-04-06] MEDS: ACETAMINOPHEN TAB 650MG DOSE (2X325MG) PO PRN (23:21)
[2020-04-07] MEDS: OLANZapine ORAL DISINTEGRATING TAB 5MG PO PRN (05:26)
[2020-04-07 06:17] VITALS: BP 141/83
[2020-04-07] MEDS: NITROFURANTOIN (MACROBID) 100 MG CAP PO SCH ×2 (08:01→20:25)
[2020-04-07] MEDS: guaiFENesin ER 600 MG TAB PO SCH ×2 (08:01→20:25)
[2020-04-07] MEDS: DOCUSATE SODIUM 100 MG CAP PO SCH ×2 (08:01→20:26)
[2020-04-07] MEDS: DOXYCYCLINE HYCLATE 100MG TABLET PO SCH ×2 (08:01→20:25)
[2020-04-07] MEDS: PANTOPRAZOLE 40MG TAB (PROTONIX) PO SCH (08:01)
[2020-04-07] MEDS: SENOKOT S TAB PO SCH ×2 (08:01→20:26)
[2020-04-07] MEDS: LACTOBACILLUS ACIDOPHILUS CAP (BACID) PO SCH ×2 (08:01→16:27)
[2020-04-07] MEDS: CEPACOL LOZENGE PO PRN ×3 (08:02→20:26)
[2020-04-07] MEDS: NYSTATIN OINTMENT 15 GM TOP SCH ×4 (08:02→20:27)
--- NOTE | 2020-04-07 11:40 | MHIPNPDOC ---
[facility] Progress Note Progress Note DATE OF SERVICE: 04/07/20 Subjective HPI: Bernice presents today for concerns regarding her medication. She cooperates superficial, appears uninterested in engaging. Objective Behavior: Pleasant. Engaged. Cooperative with good eye contact. Affect: Full range. Appropriate to context. Mood: Generally good. Midly dysthymic. Appropriately reactive. Judgement: Poor Insight: poor Assessment F60.3 Borderline personality disorder F33.9 Major depressive disorder, recurrent, unspecified Z76.5 Malingerer [conscious simulation] Plan Monitor mood because it seems like her mood is stable when she has stable housing. Vital Signs Vital Signs Date Time Temp Pulse Resp B/P (MAP) Pulse Ox O2 Delivery O2 Flow Rate FiO2 04/07/20 06:17 97.9 91 20 141/83 (102) 97 Room Air Laboratory Data 24H Labs Laboratory Tests 2 04/06/20 16:43: Urine Color YELLOW, Urine Appearance CLOUDYH, Urine pH 5.0, Urine Specific [place] 1.004, Urine Protein NEGATIVE, Urine Glucose (Auto)(UA) NEGATIVE, Urine Ketones (Auto) NEGATIVE, Urine Blood 1+H, Urine Nitrite NEGATIVE, Urine Bilirubin NEGATIVE, Urine Urobilinogen 0.2, Urine Leukocyte Esterase (Auto) 3+H, Urine WBC (Auto) 110H, Urine RBC (Auto) 15H, Urine Hyaline Casts (Auto) 0, Urine Bacteria (Auto) 1+H, Urine Squamous Epithelial Cells 1, Urine Mucus (Auto) SMALL, Urine Sperm (Auto) Current Medications Current Medications Medications (Trade) Dose Ordered Sig/Susy Route PRN Reason Start Time Stop Time Status Last Admin Dose Admin Acetaminophen (Tylenol Tab) 650 mg Q6HP PRN PO HEADACHE or DISCOMFORT 04/05/20 19:00 04/06/20 23:21 Al Hydrox/Mg Hydrox/Simethicone (Mylanta) 30 ml Q4HP PRN PO HEARTBURN/INDIGESTION 04/05/20 19:00 Cetylpyridinium Chloride (Cepacol) 1 blessing Q4HP PRN PO COUGH 04/06/20 16:00 04/10/20 15:59 04/07/20 08:02 Docusate Sodium (Colace) 100 mg BID PO 04/06/20 09:00 04/07/20 08:01 Doxycycline Hyclate (Vibramycin) 100 mg BID PO 04/06/20 21:00 04/11/20 20:59 04/07/20 08:01 Guaifenesin (Mucinex Tab Er) 600 mg BID PO 04/06/20 21:00 04/11/20 20:59 04/07/20 08:01 Home Med (Med Rec Complete!) ASDIRECTED XX 04/05/20 19:45 04/05/20 19:38 DC Lactobacillus Acidophilus (Bacid) 1 ea BIDWM PO 04/06/20 18:00 04/07/20 08:01 Levofloxacin (Levaquin) 500 mg DAILY@1800 PO 04/06/20 18:00 04/06/20 16:21 DC Magnesium Hydroxide (Milk Of Magnesia) 30 ml DAILYPRN PRN PO CONSTIPATION 04/05/20 19:00 Naproxen (Naprosyn) 500 mg BID PRN PO PAIN 04/06/20 13:45 04/06/20 20:38 Nitrofurantoin Monoh/Nitrofur Macro (Macrobid) 100 mg BID PO 04/06/20 09:00 04/06/20 15:56 DC 04/06/20 14:21 Nitrofurantoin Monoh/Nitrofur Macro (Macrobid) 100 mg BID PO 04/06/20 21:00 04/11/20 20:59 04/07/20 08:01 Nystatin (Mycostatin) 1 dose QID TOP 04/06/20 17:00 04/13/20 16:59 04/07/20 08:02 Olanzapine (ZyPREXA ZYDIS) 5 mg Q4HP PRN PO ANXIETY/AGITATION 04/07/20 04:45 04/07/20 05:26 Pantoprazole Sodium (Protonix) 40 mg DAILY PO 04/06/20 09:00 04/07/20 08:01 Senna/Docusate Sodium (Senokot S) 1 tab BID PO 04/06/20 09:00 04/07/20 08:01 Trazodone HCl (Desyrel) 50 mg QHSP PRN PO INSOMNIA 04/05/20 19:00 04/06/20 20:12 Allergies Coded Allergies: Mushroom (Verified Allergy, Unknown, 04/05/20) Penicillins (Verified Allergy, Unknown, 04/05/20) Sulfa (Sulfonamide Antibiotics) (Verified Allergy, Unknown, 04/05/20) TURKEY (Verified Allergy, Unknown, 04/05/20) emtricitabine (Verified Allergy, Unknown, 04/05/20) latex (Verified Allergy, Unknown, 04/05/20) raltegravir (Verified Allergy, Unknown, 04/05/20) sulfamethoxazole (Verified Allergy, Unknown, 04/05/20) tomato (Verified Allergy, Unknown, 04/05/20) trimethoprim (Verified Allergy, Unknown, 04/05/20) PHYLLIS RIZZO DO Apr 07, 2020 11:40
[2020-04-07] MEDS: NAPROXEN 250 MG TAB PO PRN (16:27)
[2020-04-07 17:36] VITALS: BP 119/64
[2020-04-07] MEDS: ACETAMINOPHEN TAB 650MG DOSE (2X325MG) PO PRN (20:25)
[2020-04-07] MEDS: traZODone 50 MG TAB PO PRN (20:26)
[2020-04-08] MEDS: OLANZapine ORAL DISINTEGRATING TAB 5MG PO PRN ×2 (02:02→14:33)
[2020-04-08 06:00] VITALS: BP 141/65
--- NOTE | 2020-04-08 08:01 | MHIPNPDOC ---
[facility] Progress Note Progress Note DATE OF SERVICE: 04/08/20 Subjective HPI: The patient was met with today. However, she doesnt really cooperate. She reports that she had nightmares and that suicidal thoughts come and go. Appears that she is also additionally tried to squelch having her new apartment. Objective Appearance: Poor hygeine. Behavior: Doesnt engage much. Lays in bed. Speech: Spontaneous and Fluid. Normal rate. Normal volume. Cognition: Alert, Attentive, and Oriented to person, place, time. Judgement: Poor. Insight: Poor. Assessment Z76.5 Malingerer [conscious simulation] F60.3 Borderline personality disorder F33.9 Major depressive disorder, recurrent, unspecified Plan minipress 1mg QHS for nightmares, difficult to determine if patient will take apartment but frequent readmissions will require discussion across providers as concern for secondary gain. Vital Signs Vital Signs Date Time Temp Pulse Resp B/P (MAP) Pulse Ox O2 Delivery O2 Flow Rate FiO2 04/08/20 06:00 98.0 62 16 141/65 (90) 99 Room Air Current Medications Current Medications Medications (Trade) Dose Ordered Sig/Susy Route PRN Reason Start Time Stop Time Status Last Admin Dose Admin Acetaminophen (Tylenol Tab) 650 mg Q6HP PRN PO HEADACHE or DISCOMFORT 04/05/20 19:00 04/07/20 20:25 Al Hydrox/Mg Hydrox/Simethicone (Mylanta) 30 ml Q4HP PRN PO HEARTBURN/INDIGESTION 04/05/20 19:00 Cetylpyridinium Chloride (Cepacol) 1 blessing Q4HP PRN PO COUGH 04/06/20 16:00 04/10/20 15:59 04/07/20 20:26 Docusate Sodium (Colace) 100 mg BID PO 04/06/20 09:00 04/07/20 20:26 Doxycycline Hyclate (Vibramycin) 100 mg BID PO 04/06/20 21:00 04/11/20 20:59 04/07/20 20:25 Guaifenesin (Mucinex Tab Er) 600 mg BID PO 04/06/20 21:00 04/11/20 20:59 04/07/20 20:25 Home Med (Med Rec Complete!) ASDIRECTED XX 04/05/20 19:45 04/05/20 19:38 DC Lactobacillus Acidophilus (Bacid) 1 ea BIDWM PO 04/06/20 18:00 04/07/20 16:27 Levofloxacin (Levaquin) 500 mg DAILY@1800 PO 04/06/20 18:00 04/06/20 16:21 DC Magnesium Hydroxide (Milk Of Magnesia) 30 ml DAILYPRN PRN PO CONSTIPATION 04/05/20 19:00 Naproxen (Naprosyn) 500 mg BID PRN PO PAIN 04/06/20 13:45 04/07/20 16:27 Nitrofurantoin Monoh/Nitrofur Macro (Macrobid) 100 mg BID PO 04/06/20 09:00 04/06/20 15:56 DC 04/06/20 14:21 Nitrofurantoin Monoh/Nitrofur Macro (Macrobid) 100 mg BID PO 04/06/20 21:00 04/11/20 20:59 04/07/20 20:25 Nystatin (Mycostatin) 1 dose QID TOP 04/06/20 17:00 04/13/20 16:59 04/07/20 20:27 Olanzapine (ZyPREXA ZYDIS) 5 mg Q4HP PRN PO ANXIETY/AGITATION 04/07/20 04:45 04/08/20 02:02 Pantoprazole Sodium (Protonix) 40 mg DAILY PO 04/06/20 09:00 04/07/20 08:01 Senna/Docusate Sodium (Senokot S) 1 tab BID PO 04/06/20 09:00 04/07/20 20:26 Trazodone HCl (Desyrel) 50 mg QHSP PRN PO INSOMNIA 04/05/20 19:00 04/07/20 20:26 Allergies Coded Allergies: Mushroom (Verified Allergy, Unknown, 04/05/20) Penicillins (Verified Allergy, Unknown, 04/05/20) Sulfa (Sulfonamide Antibiotics) (Verified Allergy, Unknown, 04/05/20) TURKEY (Verified Allergy, Unknown, 04/05/20) emtricitabine (Verified Allergy, Unknown, 04/05/20) latex (Verified Allergy, Unknown, 04/05/20) raltegravir (Verified Allergy, Unknown, 04/05/20) sulfamethoxazole (Verified Allergy, Unknown, 04/05/20) tomato (Verified Allergy, Unknown, 04/05/20) trimethoprim (Verified Allergy, Unknown, 04/05/20) PHYLLIS RIZZO DO Apr 08, 2020 08:01
[2020-04-08] MEDS: LACTOBACILLUS ACIDOPHILUS CAP (BACID) PO SCH ×2 (08:05→17:21)
[2020-04-08] MEDS: SENOKOT S TAB PO SCH ×2 (08:06→20:03)
[2020-04-08] MEDS: NAPROXEN 250 MG TAB PO PRN (08:06)
[2020-04-08] MEDS: DOCUSATE SODIUM 100 MG CAP PO SCH ×2 (08:06→20:03)
[2020-04-08] MEDS: guaiFENesin ER 600 MG TAB PO SCH ×2 (08:07→20:04)
[2020-04-08] MEDS: PANTOPRAZOLE 40MG TAB (PROTONIX) PO SCH (08:07)
[2020-04-08] MEDS: NITROFURANTOIN (MACROBID) 100 MG CAP PO SCH ×2 (08:07→20:04)
[2020-04-08] MEDS: DOXYCYCLINE HYCLATE 100MG TABLET PO SCH ×2 (08:07→20:03)
[2020-04-08] MEDS: NYSTATIN OINTMENT 15 GM TOP SCH ×4 (09:00→20:04)
[2020-04-08] MEDS: CEPACOL LOZENGE PO PRN (12:27)
[2020-04-08] MEDS: ACETAMINOPHEN TAB 650MG DOSE (2X325MG) PO PRN (14:33)
[2020-04-08 17:13] VITALS: BP 146/86
[2020-04-08] MEDS ORDERED: FUROSEMIDE 40 MG TAB PO ONE (18:15)
[2020-04-08 20:03] VITALS: BP 133/79
[2020-04-08] MEDS: traZODone 50 MG TAB PO PRN (20:03)
[2020-04-08] MEDS ORDERED: PRAZOSIN 1 MG CAP PO SCH (21:00)
[2020-04-09 06:34] VITALS: BP 126/69
[2020-04-09] MEDS: DOCUSATE SODIUM 100 MG CAP PO SCH (08:06)
[2020-04-09] MEDS: DOXYCYCLINE HYCLATE 100MG TABLET PO SCH (08:06)
[2020-04-09] MEDS: NYSTATIN OINTMENT 15 GM TOP SCH ×2 (08:06→12:14)
[2020-04-09] MEDS: SENOKOT S TAB PO SCH (08:07)
[2020-04-09] MEDS: guaiFENesin ER 600 MG TAB PO SCH (08:07)
[2020-04-09] MEDS: LACTOBACILLUS ACIDOPHILUS CAP (BACID) PO SCH (08:07)
[2020-04-09] MEDS: NITROFURANTOIN (MACROBID) 100 MG CAP PO SCH (08:07)
[2020-04-09] MEDS: NAPROXEN 250 MG TAB PO PRN (08:07)
[2020-04-09] MEDS: PANTOPRAZOLE 40MG TAB (PROTONIX) PO SCH (08:08)
[2020-04-09] MEDS: OLANZapine ORAL DISINTEGRATING TAB 5MG PO PRN (11:00)
--- NOTE | 2020-04-09 11:47 | MHDSPDOC ---
[facility] Discharge Summary Discharge Summary DATE OF ADMISSION: Apr 05, 2020 at 18:54 DATE OF DISCHARGE:Apr 09, 2020 at 13:43 DISCHARGE DIAGNOSES: F60.3 Borderline personality disorder Z76.5 Malingerer [conscious simulation] CONSULTANTS INVOLVED:[ None (basic hospitalist screening)] REASON FOR ADMISSION & TREATMENT AND PROGRESS ON THE UNIT : Bernice presented to the inpatient mental unit after a reported overdose. However, no overdose was confirmed, in regard no medical treatment whatsoever. The patient was admitted to the inpatient unit where she was initially observed more. She was at her baseline level, demanding and demeaning. However, after several days of a behavioral plan where she was not indulged with attention, she became disinterested and wanted to leave. The patient had denies any suicidal or homicidal ideation for 24 hours before her discharge and was no longer interested in wanting to stay. MEDICATIONS: The patient was started on 1 mg Minipress for nightmares. DISCHARGE ASSESSMENT[stable] Legal status considerations: Patient will be discharged as she no longer wants to stay on a voluntary status and does not meet involuntary criteria to the lack of suicidal and homicidal ideation for the last 24 hours. Her chronic history is significant for reported overdoses that have not been confirmed. However, currently her dynamic risk factors have been addressed as much as possible, as she is euthymic and more engaged in the discharged process. Generally, as to be expected with a borderline individual with poor frustration tolerance and poor attachment, her moods vary quite frequently, highly unlikely to be bipolar in my opinion, thus I do not believe she meets involuntary criteria and must be discharged in good saniya. MENTAL STATUS EXAMINATION ON DISCHARGE: Appearance: Well groomed. Appears to be stated age. Well nourished. Behavior: Euthymic. Engaged. Cooperative with good eye contact. Pleasant. Speech: Normal volume. Normal rate. Spontaneous and Fluid. Cognition: Alert, Attentive, and Oriented to person, place, time. Thought Form: Linear and goal directed. Thought Content: No evidence of aggressive or homicidal ideation. No evidence of delusions. No evidence of suicidal ideation. No thoughts of self harm. Judgement: baseline Insight: baseline PLAN/FOLLOWUP ARRANGEMENTS: Follow up appointments made (PCP and MH in 5 days of D/C date) and safety plan completed. Safety Planning aspects completed prior to discharge [Medication supplies limited to 7 days with 4 refills to prevent accumulation to OD] [RN reviewed crisis hotline information and other aspects to empower patient to access care in interim before next appointment.] The amount of time spent in the coordination of care for this patient was approximately 30 minutes. Vital Signs/I&Os Vital Signs Date Time Temp Pulse Resp B/P (MAP) Pulse Ox O2 Delivery O2 Flow Rate FiO2 04/09/20 08:11 Room Air 04/09/20 06:34 98.8 68 16 126/69 (88) 97 Laboratory Data Microbiology Microbiology 04/06/20 Urine Culture - Final, Complete 04/05/20 Urine Culture - Final, Complete Medications Scheduled Famotidine (Famotidine) 20 Mg Tablet, 20 MG PO BID, (Reported) Nitrofurantoin Monohyd/M-Cryst (Nitrofurantoin [place]-Mcr 100 mg) 100 Mg Capsule, 100 MG PO BID, (Reported) FOR 5 DAYS, FILLED 04/10 Pantoprazole Sodium (Pantoprazole Sodium) 40 Mg Tablet.dr, 40 MG PO DAILY, (Reported) Phenazopyridine HCl (Phenazopyridine HCl) 100 Mg Tablet, 100 MG PO TID, (Reported) Prazosin Hcl (Prazosin HCl) 1 Mg Capsule, 1 MG PO QHS, (Reported) Scheduled PRN Ondansetron HCl (Ondansetron HCl) 4 Mg Tablet, 4 MG PO Q8H PRN for NAUSEA OR VOMITING, (Reported) Allergies Coded Allergies: Mushroom (Verified Allergy, Unknown, 04/05/20) Penicillins (Verified Allergy, Unknown, 04/05/20) Sulfa (Sulfonamide Antibiotics) (Verified Allergy, Unknown, 04/05/20) TURKEY (Verified Allergy, Unknown, 04/05/20) emtricitabine (Verified Allergy, Unknown, 04/05/20) latex (Verified Allergy, Unknown, 04/05/20) raltegravir (Verified Allergy, Unknown, 04/05/20) sulfamethoxazole (Verified Allergy, Unknown, 04/05/20) tomato (Verified Allergy, Unknown, 04/05/20) trimethoprim (Verified Allergy, Unknown, 04/05/20) PHYLLIS RIZZO DO Apr 09, 2020 11:47
[2020-04-09] MEDS ORDERED: MINI1CAP PO (11:52)
[2020-04-09] MEDS ORDERED: NITR100C2 PO (14:52)
[2020-04-09] MEDS ORDERED: MM S100C PO (14:52)
[2020-04-09] MEDS ORDERED: PANT40TA29 PO (14:52)
[2020-04-10] MEDS ORDERED: FAMO1TAB11 PO (14:53)
[2020-04-10] MEDS ORDERED: ONDA-83 PO (14:53)
[2020-04-10] MEDS ORDERED: PHEN-593 PO (14:53)
[2020-04-10] MEDS ORDERED: PANT40TA29 PO (19:09)
[2020-04-10] MEDS ORDERED: PRAZ1CAP PO (19:09)
--- NOTE | 2020-05-19 10:33 | MHHPE ---
DATE OF ADMISSION: 04/05/2020 VITAL SIGNS: Blood pressure 111/52, pulse 98, temperature 98.4. She is 20 years old, has several inpatient hospitalizations. CHIEF COMPLAINT: Feels stressed. SUBJECTIVE: She has had multiple hospitalizations, has just discharged from here a few days ago. Please refer to the previous summaries, including recent circumstances relating to the latest admission. She says I have been stressed, and that the voices that she hears had increased in intensity, they were asking her to kill herself. She has been to the emergency room on a few occasions during the last 48 hours or so, discharged, and then would come back, this is after she indicated that she had taken an overdose. She has gone a bit back and forth on this, but more recently has gone on to state that she was suicidal, and that she had taken pills just prior to coming here. Says there were no new stressors, but that the voices had increased in command hallucinations. PAST PSYCHIATRIC HISTORY: As indicated above, was just discharged home here a few days ago. MENTAL STATUS EXAMINATION: She is lying in bed, superficially cooperative, mildly irritable, but not as much as she usually is. She displays no psychomotor retardation. She is coherent. Vague on suicidal thoughts, denies any plans. Does not appear internally preoccupied at present. No overt delusions elicited. Cognition grossly intact. Judgment and insight remain poor. ASSESSMENT: Posttraumatic stress disorder. PLAN: * Admitted to the inpatient psychiatry unit. Placed on relevant precautions. We will look at resuming her on her discharge medications. * Encourage participation in the activities on the unit. She will be discharged on followup when she is stable. * Housing has been unstable, that may need to be explored further. * Further recommendations will be made depending on the clinical picture. She is to see the treating clinician tomorrow. FRANCISCO
--- NOTE | 2020-05-20 15:01 | ECHO ---
DATE OF PROCEDURE: 04/09/2020 Age: 20 Gender: Female Height: 167 cm Weight: 158 kg REFERRING PHYSICIAN: Dr. Bjorn Silver INDICATION: Localized edema unspecified (nonpitting). MEASUREMENTS: 2D Measurements: Left atrium 3.9 cm Aortic root 2.8 cm Proximal ascending aorta 2.6 cm Interventricular septum 1.24 cm Posterior wall 1.25 cm Left ventricle diastole 5.3 cm Inferior vena cava 1.0 cm (more than 50% respiratory variation) Doppler Measurements: No aortic stenosis No aortic regurgitation Aortic valve velocity 133 cm/s LVOT velocity 79.6 cm/s No mitral regurgitation No mitral stenosis Mitral E velocity 77.1 cm/s Mitral A velocity 27.0 cm/s Mitral deceleration time 239 msec No tricuspid regurgitation No pulmonic regurgitation Pulmonary acceleration time 156 msec MITRAL ANNULAR TISSUE DOPPLER E prime septal 6.9 cm/s, E prime lateral 11.2 cm/s DESCRIPTION: Rhythm was sinus. This was a technically difficult echocardiogram. No pericardial effusion. This was a 2D, M-mode, color flow Doppler, and pulsed wave Doppler examination including mitral annular tissue Doppler. CONCLUSIONS: Very mild concentric left ventricular hypertrophy. Normal regional LV wall motion and wall thickening. LV systolic function. LVEF 65% by visual estimate. Normal LV diastolic function. Mild left atrial dilatation. Normal right ventricle size and systolic function. Pulmonary artery systolic pressure not elevated. Normal central venous pressure (5-10 mmHg). Technically difficult echocardiogram. MTDD
== END 2020-04-09 13:43 | disposition home or self-care (01) | DRG 752 ==
LOC: M ED 14:06 → M ED INP 18:54 → M PSY 04-06 00:05
PROVIDERS: ADMIT Psychiatry & Neurology Psychiatry; ATTEND Psychiatry & Neurology Addiction Medicine
DX: F60.3 Borderline personality disorder (principal); F43.10 Post-traumatic stress disorder, unspecified; F33.9 Major depressive disorder, recurrent, unspecified; I10 Essential (primary) hypertension; E78.5 Hyperlipidemia, unspecified; E66.9 Obesity, unspecified; R30.0 Dysuria; Z87.891 Personal history of nicotine dependence; N61.0 Mastitis without abscess; B35.6 Tinea cruris; Z79.899 Other long term (current) drug therapy; Z88.0 Allergy status to penicillin; Z88.2 Allergy status to sulfonamides; Z88.8 Allergy status to other drugs, medicaments and biological substances; Z91.018 Allergy to other foods; Z91.040 Latex allergy status; Z76.5 Malingerer [conscious simulation]

== ENCOUNTER 2020-04-09 14:40 | Emergency (ER) | payer OTHER ==
[~2020-04-09] VITALS: Ht 167.6 cm; Wt 156.8 kg
[~2020-04-09 14:40] MED LIST changes: +BUPR1SUB4 SL
[2020-04-09 14:41] VITALS: BP 109/81
[2020-04-09] MEDS ORDERED: MM S100C PO (14:52)
[2020-04-09] MEDS ORDERED: PANT40TA29 PO (14:52)
[2020-04-09] MEDS ORDERED: NITR100C2 PO (14:52)
[2020-04-10] MEDS ORDERED: PHEN-593 PO (14:53)
[2020-04-10] MEDS ORDERED: FAMO1TAB11 PO (14:53)
[2020-04-10] MEDS ORDERED: ONDA-83 PO (14:53)
[2020-04-10] MEDS ORDERED: PANT40TA29 PO (19:09)
[2020-04-10] MEDS ORDERED: PRAZ1CAP PO (19:09)
== END 2020-04-09 15:18 | disposition left against medical advice (07) ==
LOC: M ED 14:40
DX: Z53.21 Procedure and treatment not carried out due to patient leaving prior to being seen by health care provider (principal)

== ENCOUNTER 2020-04-09 20:04 | Emergency (ER) | payer OTHER ==
[~2020-04-09] VITALS: Ht 167.6 cm; Wt 156.2 kg
[~2020-04-09 20:04] MED LIST changes: +MM S100C PO; +NITR100C2 PO
[2020-04-09 21:36] VITALS: BP 112/65
[2020-04-10] MEDS ORDERED: FAMO1TAB11 PO (14:53)
[2020-04-10] MEDS ORDERED: ONDA-83 PO (14:53)
[2020-04-10] MEDS ORDERED: PHEN-593 PO (14:53)
[2020-04-10] MEDS ORDERED: PRAZ1CAP PO (19:09)
[2020-04-10] MEDS ORDERED: PANT40TA29 PO (19:09)
== END 2020-04-09 21:44 | disposition home or self-care (01) ==
LOC: M ED 20:04
DX: M79.604 Pain in right leg (principal); R29.6 Repeated falls; I10 Essential (primary) hypertension; G43.909 Migraine, unspecified, not intractable, without status migrainosus; E78.00 Pure hypercholesterolemia, unspecified; J45.909 Unspecified asthma, uncomplicated; Z86.718 Personal history of other venous thrombosis and embolism; R73.03 Prediabetes; K21.9 Gastro-esophageal reflux disease without esophagitis; Z87.440 Personal history of urinary (tract) infections; Z87.42 Personal history of other diseases of the female genital tract; F43.10 Post-traumatic stress disorder, unspecified; F41.9 Anxiety disorder, unspecified; F31.9 Bipolar disorder, unspecified; F25.9 Schizoaffective disorder, unspecified; F60.3 Borderline personality disorder; Z79.899 Other long term (current) drug therapy; Z88.0 Allergy status to penicillin; Z88.2 Allergy status to sulfonamides; Z88.8 Allergy status to other drugs, medicaments and biological substances; Z91.040 Latex allergy status; Z91.018 Allergy to other foods

== ENCOUNTER 2020-04-09 23:05 | Emergency (ER) | payer OTHER ==
[2020-04-09 23:48] LABS: HEMOGLOBIN 11.6 g/dl (12.0-15.5); MEAN CORPUSCULAR HGB CONC 31.4 g/dl (32.0-36.5); MEAN CORPUSCULAR VOLUME 89.2 fl (80.0-96.0); PLATELET COUNT, AUTOMATED 179 10^3/uL (150-450); RED BLOOD COUNT 4.15 10^6/uL (4.00-5.40); WHITE BLOOD COUNT 6.6 10^3/uL (4.0-10.0)
[2020-04-10 00:06] LABS: AMPHETAMINES LEVEL URINE NEGATIVE (NEGATIVE); BARBITURATES URINE NEGATIVE (NEGATIVE); BENZODIAZEPINES URINE NEGATIVE (NEGATIVE); CANNABINOIDS URINE NEGATIVE (NEGATIVE); COCAINE METABOLITE URINE NEGATIVE (NEGATIVE); METHADONE URINE NEGATIVE (NEGATIVE); OPIATES URINE NEGATIVE (NEGATIVE); PHENCYCLIDINE URINE NEGATIVE (NEGATIVE)
[2020-04-10 00:18] LABS: ACETAMINOPHEN LEVEL < 2.0 UG/ML (10.0-30.0); ALBUMIN 3.6 GM/DL (3.2-5.2); ALT/SGPT 31 U/L (12-78); BILIRUBIN,DIRECT < 0.1 MG/DL (0.0-0.2); BILIRUBIN,TOTAL 0.2 MG/DL (0.2-1.0); BLOOD UREA NITROGEN 14 MG/DL (7-18); CALCIUM LEVEL 8.7 MG/DL (8.5-10.1); CARBON DIOXIDE LEVEL 30 MEQ/L (21-32); CHLORIDE LEVEL 108 MEQ/L (98-107); CREATININE FOR GFR 0.81 MG/DL (0.55-1.30); ETHYL ALCOHOL (ETHANOL) < 0.003 % (0.000-0.010); GLOMERULAR FILTRATION RATE > 60.0 (>60); GLUCOSE, FASTING 93 MG/DL (70-100); POTASSIUM SERUM 3.6 MEQ/L (3.5-5.1); SALICYLATE LEVEL < 1.7 MG/DL (5.0-30.0); SODIUM LEVEL 143 MEQ/L (136-145); TOTAL PROTEIN 6.8 GM/DL (6.4-8.2)
[2020-04-10] MEDS ORDERED: FAMO1TAB11 PO (14:53)
[2020-04-10] MEDS ORDERED: ONDA-83 PO (14:53)
[2020-04-10] MEDS ORDERED: PHEN-593 PO (14:53)
[2020-04-10] MEDS ORDERED: PRAZ1CAP PO (19:09)
[2020-04-10] MEDS ORDERED: PANT40TA29 PO (19:09)
== END 2020-04-10 01:08 | disposition home or self-care (01) ==
LOC: M ED 23:05
DX: Z76.5 Malingerer [conscious simulation] (principal); Z60.9 Problem related to social environment, unspecified; R11.0 Nausea; F60.3 Borderline personality disorder; E66.01 Morbid (severe) obesity due to excess calories; Z88.0 Allergy status to penicillin; Z88.2 Allergy status to sulfonamides; Z91.040 Latex allergy status; Z91.018 Allergy to other foods; Z79.899 Other long term (current) drug therapy
CPT/HCPCS: 36415; 80048; 80076; 80307; 84443; 85027; 99284; G0480

== ENCOUNTER 2020-04-10 14:15 | Inpatient (IN) | payer OTHER ==
[~2020-04-10] VITALS: Ht 167.6 cm; Wt 156.8 kg
[2020-04-10] MEDS ORDERED: PHEN-593 PO (14:53)
[2020-04-10] MEDS ORDERED: FAMO1TAB11 PO (14:53)
[2020-04-10] MEDS ORDERED: ONDA-83 PO (14:53)
[2020-04-10 16:26] LABS: AMPHETAMINES LEVEL URINE NEGATIVE (NEGATIVE); BARBITURATES URINE NEGATIVE (NEGATIVE); BENZODIAZEPINES URINE NEGATIVE (NEGATIVE); CANNABINOIDS URINE NEGATIVE (NEGATIVE); COCAINE METABOLITE URINE NEGATIVE (NEGATIVE); METHADONE URINE NEGATIVE (NEGATIVE); OPIATES URINE NEGATIVE (NEGATIVE); PHENCYCLIDINE URINE NEGATIVE (NEGATIVE)
[2020-04-10 16:35] LABS: HEMATOCRIT 33.2 % (36.0-47.0); HEMOGLOBIN 10.3 g/dl (12.0-15.5); MEAN CORPUSCULAR HEMOGLOBIN 27.8 pg (27.0-33.0); MEAN CORPUSCULAR VOLUME 89.5 fl (80.0-96.0); PLATELET COUNT, AUTOMATED 141 10^3/uL (150-450); RED BLOOD COUNT 3.71 10^6/uL (4.00-5.40); WHITE BLOOD COUNT 5.2 10^3/uL (4.0-10.0)
[2020-04-10 16:36] LABS: ACETAMINOPHEN LEVEL < 2.0 UG/ML (10.0-30.0); ALBUMIN 3.2 GM/DL (3.2-5.2); ALT/SGPT 32 U/L (12-78); BILIRUBIN,DIRECT < 0.1 MG/DL (0.0-0.2); BILIRUBIN,TOTAL 0.3 MG/DL (0.2-1.0); BLOOD UREA NITROGEN 13 MG/DL (7-18); CALCIUM LEVEL 8.6 MG/DL (8.5-10.1); CARBON DIOXIDE LEVEL 30 MEQ/L (21-32); CHLORIDE LEVEL 111 MEQ/L (98-107); CREATININE FOR GFR 0.67 MG/DL (0.55-1.30); ETHYL ALCOHOL (ETHANOL) < 0.003 % (0.000-0.010); GLOMERULAR FILTRATION RATE > 60.0 (>60); GLUCOSE, FASTING 89 MG/DL (70-100); POTASSIUM SERUM 3.9 MEQ/L (3.5-5.1); SALICYLATE LEVEL < 1.7 MG/DL (5.0-30.0); SODIUM LEVEL 145 MEQ/L (136-145); TOTAL PROTEIN 5.9 GM/DL (6.4-8.2)
[2020-04-10 16:55] LABS: HCG, SERUM QUALITATIVE NEGATIVE (NEGATIVE)
[2020-04-10] MEDS ORDERED: MOM 30ML SUSPENSION UDC PO PRN (18:30)
[2020-04-10] MEDS ORDERED: MAALOX 30 ML SUSP *UDC PO PRN (18:30)
[2020-04-10] MEDS ORDERED: PRAZ1CAP PO (19:09)
[2020-04-10] MEDS ORDERED: PANT40TA29 PO (19:09)
[2020-04-10 20:30] VITALS: BP 123/59
[2020-04-11 06:57] VITALS: BP 124/68
--- NOTE | 2020-04-11 08:20 | MHHPEPDOC ---
[facility] History & Physical History and Physical DATE OF ADMISSION: Apr 10, 2020 at 18:21 HPI: Bernice represents today after her recent overdose. The patient is readmitted to the unit after recently being discharged. The patient was met with. However, she continued to endorse vague SI with no particular symptoms or other explanations as to what brought her in. Reportedly in the ER, she had claimed that she had not eaten in a week. However, she had recently been discharged from our unit where she had been noted to had been eating of which appeared to be in direct conflict with our reported statement. She reported homicidal thoughts to kill her sister. However, She had no plan or reportedly intention to engage in it. She was emitted out of an abundance of caution. However, she has been sleeping the majority of the time shes been here. Patient reports no major changes in her life since she last left. No notable substance use history. MEDICATIONS: She states she overdosed on Trazodone and Doxycycline. MEDICAL HISTORY: She has had multiple admissions; up to 16 the past year. She has a diagnosis of borderline personality disorder that was treated with multiple antipsychotics, neuroleptics, and Suboxone off-label, but all have been ineffective for mkai atment. She has been on 1 mg of Minipress. She has no confirmed suicide attempts. FAMILY HISTORY: No changes from previous. SOCIAL HISTORY - OCCUPATION: She is currently unemployed. SOCIAL HISTORY - LIVING SITUATION: Patient is currently homeless, DSSs housing is attempting to house her in. Hous ing is supposed to start on the ,but reportedly she has been trying to stop this. Objective Appearance: Baseline hygiene. Well nourished. Appears to be stated age. Behavior: Generally unengaged. Affect: Reactive appropriately for patients baseline. Mildy dysthymic. Speech: Normal rate. Spontaneous and Fluid. Normal volume. Judgement: Baseline judgement. Insight: Baseline insight. Assessment F60.3 Borderline personality disorder Plan Patient has represented today shortly after being discharged Patient does not present with any objective changes from her previous discharge furthering my suspicions. She has a villagomez history of presenting after for secondary gain in the form of housing and other aspects. Her presentation today does not appear to be significantly different from her previous as she has had little benefit and appears to be actively trying to sabotage her housing. At this time, I do not believe she meets involuntary criteria as her suicidality is quite vague and fleeting and is ill-defined as is her current baseline. I am not sure whether she meets appropriate voluntary criteria as she has been known to get worse on our unit, becoming more needy and behavioral. Will defer to Dr. Barajas, the on-call provider, tomorrow to decide if extension is warranted over the weekend as 48 hours. Disposition can be made more appropriately and patient will be observed. Her medications may not be indicated at this time as her chronic personality problems and secondary gain make it difficult to ascertain her actual motives in this situation. Treatment priorities are 1 risk for suicide. Estimated length stay is 1-5 days. Vital Signs Vital Signs Date Time Temp Pulse Resp B/P (MAP) Pulse Ox O2 Delivery O2 Flow Rate FiO2 04/11/20 06:57 99.3 85 16 124/68 (86) 100 Room Air Laboratory Data 24H Labs Laboratory Tests 2 04/10/20 15:29: Nucleated Red Blood Cells % (auto) 0.0, Anion Gap 4L, Glomerular Filtration Rate > 60.0, Calcium Level 8.6, Total Bilirubin 0.3, Direct Bilirubin < 0.1, Aspartate Amino Transf (AST/SGOT) 27, Alanine Aminotransferase (ALT/SGPT) 32, Alkaline Phosphatase 67, Total Protein 5.9L, Albumin 3.2, Albumin/Globulin Ratio 1.2, Thyroid Stimulating Hormone (TSH) 1.160, Human Chorionic Gonadotropin, Qual NEGATIVE, Salicylates Level < 1.7L, Urine Opiates Screen NEGATIVE, Urine Methadone Screen NEGATIVE, Acetaminophen Level < 2.0L, Urine Barbiturates Screen NEGATIVE, Urine Phencyclidine Screen NEGATIVE, Urine Amphetamines Screen NEGATIVE, Urine Benzodiazepines Screen NEGATIVE, Urine Cocaine Metabolite Screen NEGATIVE, Urine Cannabinoids Screen NEGATIVE, Ethyl Alcohol Level < 0.003 CBC/BMP Laboratory Tests 04/10/20 15:29 Medications Scheduled Famotidine (Famotidine) 20 Mg Tablet, 20 MG PO BID, (Reported) Nitrofurantoin Monohyd/M-Cryst (Nitrofurantoin [place]-Mcr 100 mg) 100 Mg Capsule, 100 MG PO BID, (Reported) FOR 5 DAYS, FILLED 04/10 Pantoprazole Sodium (Pantoprazole Sodium) 40 Mg Tablet., 40 MG PO DAILY, (Reported) Phenazopyridine HCl (Phenazopyridine HCl) 100 Mg Tablet, 100 MG PO TID, (Reported) Prazosin Hcl (Prazosin HCl) 1 Mg Capsule, 1 MG PO QHS, (Reported) Scheduled PRN Ondansetron HCl (Ondansetron HCl) 4 Mg Tablet, 4 MG PO Q8H PRN for NAUSEA OR VOMITING, (Reported) Allergies Coded Allergies: Mushroom (Verified Allergy, Unknown, 04/05/20) Penicillins (Verified Allergy, Unknown, 04/05/20) Sulfa (Sulfonamide Antibiotics) (Verified Allergy, Unknown, 04/05/20) TURKEY (Verified Allergy, Unknown, 04/05/20) emtricitabine (Verified Allergy, Unknown, 04/05/20) latex (Verified Allergy, Unknown, 04/05/20) raltegravir (Verified Allergy, Unknown, 04/05/20) sulfamethoxazole (Verified Allergy, Unknown, 04/05/20) tomato (Verified Allergy, Unknown, 04/05/20) trimethoprim (Verified Allergy, Unknown, 04/05/20) A-FIB/CHADSVASC A-FIB History Current/History of A-Fib/PAF?: No PHYLLIS RIZZO DO Apr 11, 2020 08:20
[2020-04-11] MEDS: ACETAMINOPHEN TAB 650MG DOSE (2X325MG) PO PRN ×2 (11:12→20:06)
--- NOTE | 2020-04-11 12:23 | HPEPDOC ---
General Date of Admission Apr 10, 2020 at 18:21 Date of Service: Apr 11, 2020 Chief Complaint The patient is a 20-year-old female admitted with a reason for visit of Unspecified Depressive Disorder. Source: Patient Exam Limitations: No limitations Timing/Duration: Other (yesterday) History of Present Illness 20 [place] female with PMHX of depressive disorder, was seen night before at the [facility] and treated for UTI, also was seen at [facility] ED with Malingering behaviour. Pt was brought by PD with CC of Suicidal intentions. according to pt, she missed her GM, and feels that her family doesn't care about her and wanted to " end it all' by taking all her meds. Pt had no plans or Homicidal ideas or intentions. Pt denies any medical complaints at present time. Home Medications Scheduled Famotidine (Famotidine) 20 Mg Tablet, 20 MG PO BID, (Reported) Nitrofurantoin Monohyd/M-Cryst (Nitrofurantoin [place]-Mcr 100 mg) 100 Mg Capsule, 100 MG PO BID, (Reported) FOR 5 DAYS, FILLED 04/10 Pantoprazole Sodium (Pantoprazole Sodium) 40 Mg Tablet.dr, 40 MG PO DAILY, (Reported) Phenazopyridine HCl (Phenazopyridine HCl) 100 Mg Tablet, 100 MG PO TID, (Reported) Prazosin Hcl (Prazosin HCl) 1 Mg Capsule, 1 MG PO QHS, (Reported) Scheduled PRN Ondansetron HCl (Ondansetron HCl) 4 Mg Tablet, 4 MG PO Q8H PRN for NAUSEA OR VOMITING, (Reported) Allergies Coded Allergies: Mushroom (Verified Allergy, Unknown, 04/05/20) Penicillins (Verified Allergy, Unknown, 04/05/20) Sulfa (Sulfonamide Antibiotics) (Verified Allergy, Unknown, 04/05/20) TURKEY (Verified Allergy, Unknown, 04/05/20) emtricitabine (Verified Allergy, Unknown, 04/05/20) latex (Verified Allergy, Unknown, 04/05/20) raltegravir (Verified Allergy, Unknown, 04/05/20) sulfamethoxazole (Verified Allergy, Unknown, 04/05/20) tomato (Verified Allergy, Unknown, 04/05/20) trimethoprim (Verified Allergy, Unknown, 04/05/20) Past Medical History Medical History Hyperlipidemia, Hypertension, Obesity, multiple admission in [facility] for suicide and depression Surgical History Appendectomy, tonsillectomy, Ovarian cyst removal Family History Reviewed, non contributory Social History * Smoker: former Smoker, quit greater than 1 year Alcohol: Denies Drugs: denies Lives with her family A-FIB/CHADSVASC A-FIB History Current/History of A-Fib/PAF?: No Review of Systems Constitutional: Denies: Chills, Fever, Malaise, Night Sweats, Weakness, Fatigue, Weight Loss, Lethargy, Other Eyes: Denies: Pain, Vision change, Conjunctivae inflammation, Eyelid inflammation, Redness, Other ENT: Denies: Head Aches, Ear Pain, Dysphagia, Sinus Congestion, Post Nasal Drip, Sore Throat, Epistaxis, Other Symptoms Skin: Denies: Rash, Lesions, Jaundice, Bruising, Itching, Dry, Breakdown, Nail Changes, Other Pulmonary: Denies: Dyspnea, Cough, Pleuritic Chest Pain, Other Symptoms Cardiovascular: Denies: Chest Pain, Palpitations, Orthopnea, Paroxysmal Noc. Dyspnea, Edema, Lt Headedness, Other Symptoms Gastrointestinal: Denies: Nausea, Vomiting, Abdominal Pain, Diarrhea, Constipation, Melena, Hematochezia, Other Symptoms Genitourinary: Denies: Dysuria, Frequency, Incontinence, Hematuria, Retention, Other Symptoms Hematologic: Denies: Bruising, Bleeding Excessively, Petecchia, Purpura, Enlarged Lymph Nodes, Other Hematologic Endocrine: Denies: Polydipsia, Polyphagia, Polyuria, Heat Intolerance, Cold Intolerance, Other Endocrine Sx Musculoskeletal: Denies: Neck Pain, Back Pain, Shoulder Pain, Arm Pain, Hand Pain, Leg Pain, Foot Pain, Joint Pain, Muscle Pain, Spasms, Other Symptoms Neurological: Denies: Weakness, Numbness, Incoordination, Change in speech, Confusion, Seizures, Other Symptoms Psych: Reports: Thoughts of Self Harm, Other Psych (depression) Physical Examination General Exam: Positive: Alert, Cooperative Eye Exam: Positive: PERRLA, Conjunctiva & lids normal ENT Exam: Positive: Atraumatic Neck Exam: Positive: Supple Chest Exam: Positive: Clear to auscultation, Normal air movement Heart Exam: Positive: Normal S1, Normal S2 Abdomen Exam: Positive: Normal bowel sounds, Soft, Tenderness Extremity Exam: Positive: Normal pulses Skin Exam: Positive: Nl turgor and temperature Neuro Exam: Positive: Normal Tone, Cranial Nerves 3-12 NL Psych Exam: Positive: Mental status NL, Mood NL, Memory Intact, Oriented x 3 Vital Signs Vital Signs Date Time Temp Pulse Resp B/P (MAP) Pulse Ox O2 Delivery O2 Flow Rate FiO2 04/11/20 06:57 99.3 85 16 124/68 (86) 100 Room Air Laboratory Data Labs 24H Laboratory Tests 2 04/10/20 15:29: Nucleated Red Blood Cells % (auto) 0.0, Anion Gap 4L, Glomerular Filtration Rate > 60.0, Calcium Level 8.6, Total Bilirubin 0.3, Direct Bilirubin < 0.1, As partate Amino Transf (AST/SGOT) 27, Alanine Aminotransferase (ALT/SGPT) 32, Alkaline Phosphatase 67, Total Protein 5.9L, Albumin 3.2, Albumin/Globulin Ratio 1.2, Thyroid Stimulating Hormone (TSH) 1.160, Human Chorionic Gonadotropin, Qual NEGATIVE, Salicylates Level < 1.7L, Urine Opiates Screen NEGATIVE, Urine Methadone Screen NEGATIVE, Acetaminophen Level < 2.0L, Urine Barbiturates Screen NEGATIVE, Urine Phencyclidine Screen NEGATIVE, Urine Amphetamines Screen NEGATIVE, Urine Benzodiazepines Screen NEGATIVE, Urine Cocaine Metabolite Screen NEGATIVE, Urine Cannabinoids Screen NEGATIVE, Ethyl Alcohol Level < 0.003 CBC/BMP Laboratory Tests 04/10/20 15:29 Problems (1) Suicidal ideation Status: Acute Problem Text: pt admitted to in-pt Psych unit Individual and group councelling as per Psych Pharmaceutical intervention as per psych (2) Hyperlipidemia Status: Chronic Problem Text: Hyperlipedemia by history but on no meds Will repeat fasting Lipid panel and start meds if indicated (3) Hypertension Status: Chronic Problem Text: Hx of HTN by history but pts BP is well under control without any meds No intervention needed (4) UTI (urinary tract infection) Status: Acute Problem Text: as per pt was Dx with UTI at [facility] 2 nights ago. Pt was started on Macrobid will continue to finish antibiotic course , total 7 days Repeat UA Plan / VTE VTE Prophylaxis Ordered?: Yes SMITHA ZELAYA MD Apr 11, 2020 12:22
[2020-04-11] MEDS ORDERED: ONDANSETRON 4 MG TAB PO PRN (12:30)
[2020-04-11] MEDS: PANTOPRAZOLE 40MG TAB (PROTONIX) PO SCH (14:37)
[2020-04-11] MEDS: NITROFURANTOIN (MACROBID) 100 MG CAP PO SCH ×2 (14:37→20:07)
[2020-04-11] MEDS: FAMOTIDINE 20 MG TAB PO SCH ×2 (14:37→20:07)
[2020-04-11] MEDS: hydrOXYzine 50 MG TAB PO PRN (15:41)
[2020-04-11 17:00] VITALS: BP 138/89
[2020-04-11] MEDS: traZODone 50 MG TAB PO PRN (20:07)
[2020-04-12 06:33] VITALS: BP 124/69
[2020-04-12] MEDS: PANTOPRAZOLE 40MG TAB (PROTONIX) PO SCH (08:38)
[2020-04-12] MEDS: ACETAMINOPHEN TAB 650MG DOSE (2X325MG) PO PRN ×2 (08:38→20:28)
[2020-04-12] MEDS: FAMOTIDINE 20 MG TAB PO SCH ×2 (08:38→20:28)
[2020-04-12] MEDS: NITROFURANTOIN (MACROBID) 100 MG CAP PO SCH ×2 (08:39→20:28)
[2020-04-12 14:00] VITALS: BP 121/73
[2020-04-12] MEDS: hydrOXYzine 50 MG TAB PO PRN ×2 (18:13→22:31)
[2020-04-12] MEDS: traZODone 50 MG TAB PO PRN (20:28)
[2020-04-13 06:44] VITALS: BP 137/57
[2020-04-13] MEDS: PANTOPRAZOLE 40MG TAB (PROTONIX) PO SCH (08:47)
[2020-04-13] MEDS: FAMOTIDINE 20 MG TAB PO SCH ×2 (08:47→20:46)
[2020-04-13] MEDS: NITROFURANTOIN (MACROBID) 100 MG CAP PO SCH ×2 (08:47→20:46)
[2020-04-13] MEDS: ACETAMINOPHEN TAB 650MG DOSE (2X325MG) PO PRN ×2 (08:49→18:50)
[2020-04-13] MEDS ORDERED: diphenhydrAMINE 25MG CAP PO PRN (14:45)
[2020-04-13] MEDS: OLANZapine ORAL DISINTEGRATING TAB 5MG PO PRN (15:45)
[2020-04-13] MEDS: hydrOXYzine 50 MG TAB PO PRN (15:45)
[2020-04-13 18:37] VITALS: BP 166/90
[2020-04-13] MEDS ORDERED: IBUPROFEN 400 MG TAB PO PRN (20:30)
[2020-04-13] MEDS: traZODone 50 MG TAB PO PRN (20:48)
[2020-04-14 06:32] VITALS: BP 117/59
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
[2020-04-14] MEDS: PANTOPRAZOLE 40MG TAB (PROTONIX) PO SCH (08:21)
[2020-04-14] MEDS: FAMOTIDINE 20 MG TAB PO SCH (08:21)
[2020-04-14] MEDS: OLANZapine ORAL DISINTEGRATING TAB 5MG PO PRN (08:21)
[2020-04-14] MEDS: hydrOXYzine 50 MG TAB PO PRN (08:21)
[2020-04-14] MEDS ORDERED: ONDA-83 PO (09:31)
[2020-04-14] MEDS ORDERED: FAMO1TAB11 PO (09:31)
[2020-04-14] MEDS ORDERED: DIPH25CA32 PO (09:32)
[2020-04-14] MEDS ORDERED: PANT40TA29 PO (09:32)
[2020-04-14] MEDS: NITROFURANTOIN (MACROBID) 100 MG CAP PO SCH (11:21)
[2020-04-14] MEDS ORDERED: TRAZ-252 PO (19:59)
[2020-04-14] MEDS ORDERED: CLIN150C14 PO (22:17)
[2020-04-15] MEDS ORDERED: CIPR-249 (11:08)
[2020-04-15] MEDS ORDERED: PYRI0.4T (11:08)
[2020-04-15] MEDS ORDERED: ONDA4TAB6 (11:08)
[2020-04-15] MEDS ORDERED: MACR100C43 PO (13:15)
== END 2020-04-14 11:53 | disposition home or self-care (01) | DRG 752 ==
LOC: M ED 14:15 → M ED INP 18:21 → M PSY 20:39
PROVIDERS: ADMIT Psychiatry & Neurology Psychiatry; ATTEND Psychiatry & Neurology Addiction Medicine
DX: F60.3 Borderline personality disorder (principal); I10 Essential (primary) hypertension; N39.0 Urinary tract infection, site not specified; E66.9 Obesity, unspecified; E78.5 Hyperlipidemia, unspecified; F60.2 Antisocial personality disorder; Z59.0 Homelessness; Z79.899 Other long term (current) drug therapy; Z88.0 Allergy status to penicillin; Z88.2 Allergy status to sulfonamides; Z88.8 Allergy status to other drugs, medicaments and biological substances; Z91.040 Latex allergy status; Z91.018 Allergy to other foods; Z87.891 Personal history of nicotine dependence; Z76.5 Malingerer [conscious simulation]

== ENCOUNTER 2020-04-14 19:45 | Emergency (ER) | payer OTHER ==
[~2020-04-14] VITALS: Ht 167.6 cm; Wt 157.4 kg
[~2020-04-14 19:45] MED LIST changes: +DIPH25CA32 PO; +FAMO1TAB11 PO; +PHEN-593 PO
[2020-04-14] MEDS ORDERED: TRAZ-252 PO (19:59)
[2020-04-14] MEDS ORDERED: CLIN150C14 PO (22:17)
[2020-04-14 22:23] VITALS: BP 134/89
[2020-04-15] MEDS ORDERED: PYRI0.4T (11:08)
[2020-04-15] MEDS ORDERED: CIPR-249 (11:08)
[2020-04-15] MEDS ORDERED: ONDA4TAB6 (11:08)
[2020-04-15] MEDS ORDERED: MACR100C43 PO (13:15)
== END 2020-04-14 22:25 | disposition home or self-care (01) ==
LOC: M ED 19:45
DX: J01.90 Acute sinusitis, unspecified (principal); H92.03 Otalgia, bilateral; I10 Essential (primary) hypertension; K21.9 Gastro-esophageal reflux disease without esophagitis; J45.909 Unspecified asthma, uncomplicated; F31.9 Bipolar disorder, unspecified; F43.10 Post-traumatic stress disorder, unspecified; F25.9 Schizoaffective disorder, unspecified; F60.3 Borderline personality disorder; F41.9 Anxiety disorder, unspecified; Z88.2 Allergy status to sulfonamides; Z88.0 Allergy status to penicillin; Z88.8 Allergy status to other drugs, medicaments and biological substances; Z88.1 Allergy status to other antibiotic agents; Z91.040 Latex allergy status; Z91.018 Allergy to other foods; Z79.899 Other long term (current) drug therapy

== ENCOUNTER 2020-04-15 10:53 | Emergency (ER) | payer OTHER ==
[~2020-04-15] VITALS: Ht 167.6 cm; Wt 158.2 kg
[2020-04-15] MEDS ORDERED: PYRI0.4T (11:08)
[2020-04-15] MEDS ORDERED: CIPR-249 (11:08)
[2020-04-15] MEDS ORDERED: ONDA4TAB6 (11:08)
[2020-04-15 13:04] VITALS: BP 131/65
[2020-04-15] MEDS ORDERED: MACR100C43 PO (13:15)
== END 2020-04-15 13:28 | disposition home or self-care (01) ==
LOC: M ED 10:53
DX: N39.0 Urinary tract infection, site not specified (principal); Z79.2 Long term (current) use of antibiotics; Z79.899 Other long term (current) drug therapy; Z91.018 Allergy to other foods; Z88.0 Allergy status to penicillin; Z88.2 Allergy status to sulfonamides; Z88.1 Allergy status to other antibiotic agents; Z91.040 Latex allergy status

== ENCOUNTER 2020-04-20 03:29 | Emergency (ER) | payer OTHER ==
[~2020-04-20 03:29] MED LIST changes: +CIPR-249; +ONDA4TAB6; +PYRI0.4T
[2020-04-20 03:50] VITALS: BP 128/68
[2020-04-21] MEDS ORDERED: ACET-908 PO (14:20)
[2020-04-21] MEDS ORDERED: DIPH25CA32 PO (18:45)
[2020-04-21] MEDS ORDERED: PANT40TA29 PO (18:45)
[2020-04-21] MEDS ORDERED: FAMO20TA PO (18:45)
== END 2020-04-20 04:47 | disposition home or self-care (01) ==
LOC: M ED 03:29
DX: F60.3 Borderline personality disorder (principal); Z73.89 Other problems related to life management difficulty; Z60.9 Problem related to social environment, unspecified; E66.9 Obesity, unspecified; Z88.0 Allergy status to penicillin; Z88.2 Allergy status to sulfonamides; Z88.8 Allergy status to other drugs, medicaments and biological substances; Z91.040 Latex allergy status; Z91.018 Allergy to other foods; Z79.899 Other long term (current) drug therapy

== ENCOUNTER 2020-04-21 13:31 | Inpatient (IN) | payer OTHER ==
[~2020-04-21] VITALS: Ht 167.6 cm; Wt 153.8 kg
[2020-04-21] MEDS ORDERED: ACET-908 PO (14:20)
[2020-04-21] MEDS ORDERED: ONDANSETRON 4 MG ORAL DISINTEGRATING TAB PO ONE (14:45)
[2020-04-21] MEDS ORDERED: KETOROLAC 60MG 2ML VIAL IM ONE (14:45)
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
[2020-04-21 18:10] LABS: HEMATOCRIT 34.3 % (36.0-47.0); HEMOGLOBIN 10.5 g/dl (12.0-15.5); MEAN CORPUSCULAR HEMOGLOBIN 27.5 pg (27.0-33.0); MEAN CORPUSCULAR HGB CONC 30.6 g/dl (32.0-36.5); MEAN CORPUSCULAR VOLUME 89.8 fl (80.0-96.0); PLATELET COUNT, AUTOMATED 215 10^3/uL (150-450); RED BLOOD COUNT 3.82 10^6/uL (4.00-5.40); WHITE BLOOD COUNT 7.3 10^3/uL (4.0-10.0)
[2020-04-21 18:31] LABS: AMPHETAMINES LEVEL URINE NEGATIVE (NEGATIVE); BARBITURATES URINE NEGATIVE (NEGATIVE); BENZODIAZEPINES URINE NEGATIVE (NEGATIVE); CANNABINOIDS URINE NEGATIVE (NEGATIVE); COCAINE METABOLITE URINE NEGATIVE (NEGATIVE); METHADONE URINE NEGATIVE (NEGATIVE); OPIATES URINE NEGATIVE (NEGATIVE); PHENCYCLIDINE URINE NEGATIVE (NEGATIVE)
[2020-04-21 18:37] LABS: HCG, SERUM QUALITATIVE NEGATIVE (NEGATIVE)
[2020-04-21] MEDS ORDERED: DIPH25CA32 PO (18:45)
[2020-04-21] MEDS ORDERED: PANT40TA29 PO (18:45)
[2020-04-21] MEDS ORDERED: FAMO20TA PO (18:45)
[2020-04-21 19:03] LABS: ACETAMINOPHEN LEVEL < 2.0 UG/ML (10.0-30.0); ALBUMIN 3.6 GM/DL (3.2-5.2); ALT/SGPT 23 U/L (12-78); BILIRUBIN,DIRECT < 0.1 MG/DL (0.0-0.2); BILIRUBIN,TOTAL 0.2 MG/DL (0.2-1.0); BLOOD UREA NITROGEN 16 MG/DL (7-18); CARBON DIOXIDE LEVEL 26 MEQ/L (21-32); CHLORIDE LEVEL 110 MEQ/L (98-107); ETHYL ALCOHOL (ETHANOL) < 0.003 % (0.000-0.010); GLOMERULAR FILTRATION RATE > 60.0 (>60); GLUCOSE, FASTING 95 MG/DL (70-100); POTASSIUM SERUM 4.1 MEQ/L (3.5-5.1); SALICYLATE LEVEL < 1.7 MG/DL (5.0-30.0); SODIUM LEVEL 141 MEQ/L (136-145); TOTAL PROTEIN 6.9 GM/DL (6.4-8.2)
[2020-04-21] MEDS ORDERED: MAALOX 30 ML SUSP *UDC PO PRN (20:45)
[2020-04-21] MEDS ORDERED: MOM 30ML SUSPENSION UDC PO PRN (20:45)
[2020-04-21] MEDS ORDERED: diphenhydrAMINE 25MG CAP PO PRN (20:45)
[2020-04-21 22:29] VITALS: BP 131/95
[2020-04-21] MEDS: ACETAMINOPHEN TAB 650MG DOSE (2X325MG) PO PRN (23:09)
[2020-04-22 06:23] VITALS: BP 122/63
[2020-04-22] MEDS ORDERED: PANTOPRAZOLE 40MG TAB (PROTONIX) PO SCH (09:00)
[2020-04-22] MEDS ORDERED: INFLUENZA QUADRIVALENT PF VACCINE 0.5ML SYRINGE IM ONE (09:00)
[2020-04-22] MEDS ORDERED: FAMOTIDINE 20 MG TAB PO SCH (09:00)
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
--- NOTE | 2020-04-22 10:18 | MHDSPDOC ---
[facility] Discharge Summary Discharge Summary DATE OF ADMISSION: Apr 21, 2020 at 20:38 DATE OF DISCHARGE: Apr 22, 2020 at 17:30 please see h/p for same day discharge Vital Signs/I&Os Vital Signs Date Time Temp Pulse Resp B/P (MAP) Pulse Ox O2 Delivery O2 Flow Rate FiO2 04/22/20 06:23 98.0 82 15 122/63 (82) Room Air 04/21/20 22:05 99 Laboratory Data Labs 24H Laboratory Tests 2 04/21/20 17:58: Nucleated Red Blood Cells % (auto) 0.0, Anion Gap 5L, Glomerular Filtration Rate > 60.0, Calcium Level 9.0, Total Bilirubin 0.2, Direct Bilirubin < 0.1, Aspar mendes Amino Transf (AST/SGOT) 14, Alanine Aminotransferase (ALT/SGPT) 23, Alkaline Phosphatase 74, Total Protein 6.9, Albumin 3.6, Albumin/Globulin Ratio 1.1L, Thyroid Stimulating Hormone (TSH) 1.450, Human Chorionic Gonadotropin, Qual NEGATIVE, Salicylates Level < 1.7L, Urine Opiates Screen NEGATIVE, Urine Methadone Screen NEGATIVE, Acetaminophen Level < 2.0L, Urine Barbiturates Screen NEGATIVE, Urine Phencyclidine Screen NEGATIVE, Urine Amphetamines Screen NEGATIVE, Urine Benzodiazepines Screen NEGATIVE, Urine Cocaine Metabolite Screen NEGATIVE, Urine Cannabinoids Screen NEGATIVE, Ethyl Alcohol Level < 0.003 CBC/BMP Laboratory Tests 04/21/20 17:58 Medications Scheduled Famotidine (Famotidine) 20 Mg Tablet, 20 MG PO BID, (Reported) Pantoprazole Sodium (Pantoprazole Sodium) 40 Mg Tablet.dr, 40 MG PO DAILY, (Reported) Allergies Coded Allergies: Mushroom (Verified Allergy, Unknown, 04/05/20) Penicillins (Verified Allergy, Unknown, 04/05/20) Sulfa (Sulfonamide Antibiotics) (Verified Allergy, Unknown, 04/05/20) TURKEY (Verified Allergy, Unknown, 04/05/20) emtricitabine (Verified Allergy, Unknown, 04/05/20) haloperidol (Verified Allergy, Unknown, GI BLEED, 04/14/20) latex (Verified Allergy, Unknown, 04/05/20) raltegravir (Verified Allergy, Unknown, 04/05/20) sulfamethoxazole (Verified Allergy, Unknown, 04/05/20) tomato (Verified Allergy, Unknown, 04/05/20) trimethoprim (Verified Allergy, Unknown, 04/05/20) PHYLLIS RIZZO DO Apr 22, 2020 10:18
[2020-04-22] MEDS: ACETAMINOPHEN TAB 650MG DOSE (2X325MG) PO PRN (11:01)
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
== END 2020-04-22 17:30 | disposition home or self-care (01) | DRG 752 ==
LOC: M ED 13:31 → M ED INP 20:38 → M PSY 22:30
PROVIDERS: ADMIT Psychiatry & Neurology Addiction Medicine; ATTEND Psychiatry & Neurology Addiction Medicine
DX: F68.10 Factitious disorder imposed on self, unspecified (principal); Z88.0 Allergy status to penicillin; Z59.0 Homelessness; Z79.899 Other long term (current) drug therapy; Z88.2 Allergy status to sulfonamides; Z91.018 Allergy to other foods; Z91.040 Latex allergy status; Z88.8 Allergy status to other drugs, medicaments and biological substances

== ENCOUNTER 2020-05-15 21:32 | Emergency (ER) | payer OTHER ==
[~2020-05-15] VITALS: Ht 167.6 cm; Wt 92.3 kg
[~2020-05-15 21:32] MED LIST changes: +ACET-908 PO; +FAMO20TA PO
[2020-05-15 21:33] VITALS: BP 120/67
[2020-05-15] MEDS ORDERED: FAMO40TA3 PO (21:40)
[2020-05-15] MEDS ORDERED: PRAZ2CAP PO (21:40)
[2020-05-15] MEDS ORDERED: ACETAMINOPHEN 500 MG TAB PO ONE (22:45)
== END 2020-05-15 22:41 | disposition home or self-care (01) ==
LOC: M ED 21:32
DX: S63.502A Unspecified sprain of left wrist, initial encounter (principal); S80.02XA Contusion of left knee, initial encounter; W10.8XXA Fall (on) (from) other stairs and steps, initial encounter; Y92.098 Other place in other non-institutional residence as the place of occurrence of the external cause; Y93.01 Activity, walking, marching and hiking; Y99.8 Other external cause status; G43.909 Migraine, unspecified, not intractable, without status migrainosus; I10 Essential (primary) hypertension; I95.9 Hypotension, unspecified; E78.00 Pure hypercholesterolemia, unspecified; I80.9 Phlebitis and thrombophlebitis of unspecified site; J45.909 Unspecified asthma, uncomplicated; K21.9 Gastro-esophageal reflux disease without esophagitis; E28.2 Polycystic ovarian syndrome; M79.9 Soft tissue disorder, unspecified; F31.9 Bipolar disorder, unspecified; F25.9 Schizoaffective disorder, unspecified; F60.3 Borderline personality disorder; F17.200 Nicotine dependence, unspecified, uncomplicated; Z88.0 Allergy status to penicillin; Z88.2 Allergy status to sulfonamides; Z88.8 Allergy status to other drugs, medicaments and biological substances; Z88.1 Allergy status to other antibiotic agents; Z91.018 Allergy to other foods; Z91.040 Latex allergy status

== ENCOUNTER 2020-05-16 19:20 | Emergency (ER) | payer OTHER ==
[~2020-05-16] VITALS: Ht 167.6 cm; Wt 157.7 kg
[~2020-05-16 19:20] MED LIST changes: +FAMO40TA3 PO
[2020-05-16 20:04] LABS: APPEARANCE, URINE CLOUDY (CLEAR); BACTERIA, URINE AUTO 1+ (NEGATIVE); BILIRUBIN, URINE AUTO NEGATIVE (NEGATIVE); BLOOD, URINE BLOOD NEGATIVE (NEGATIVE); COLOR, URINE YELLOW (YELLOW); GLUCOSE, URINE (UA) AUTO NEGATIVE (NEGATIVE); KETONE, URINE AUTO NEGATIVE (NEGATIVE); LEUKOCYTE ESTERASE, URINE AUTO 2+ (NEGATIVE); MUCUS, URINE MODERATE (NEGATIVE); NITRITE, URINE AUTO NEGATIVE (NEGATIVE); PROTEIN, URINE AUTO NEGATIVE (NEGATIVE); RBC, URINE AUTO 3 /HPF (0-3); SPECIFIC GRAVITY URINE AUTO 1.028 (1.002-1.035); SQUAMOUS EPITHELIAL CELL UR AU 14 /HPF (0-6); UROBILINOGEN, URINE AUTO 0.2 mg/dL (0.0-2.0); WBC, URINE AUTO 9 /HPF (0-3)
[2020-05-16 20:41] LABS: BASO % 0.3 % (0.0-1.0); EOS # 0.3 10^3/uL (0.0-0.5); HEMATOCRIT 34.4 % (36.0-47.0); HEMOGLOBIN 10.3 g/dl (12.0-15.5); LYMPH # 1.5 10^3/uL (1.5-5.0); LYMPH % 21.2 % (24.0-44.0); MEAN CORPUSCULAR HEMOGLOBIN 25.9 pg (27.0-33.0); MEAN CORPUSCULAR HGB CONC 29.9 g/dl (32.0-36.5); MEAN CORPUSCULAR VOLUME 86.4 fl (80.0-96.0); MONO # 0.6 10^3/uL (0.0-0.8); MONO % 8.6 % (0.0-5.0); NEUTROPHILS # 4.7 10^3/uL (1.5-8.5); NEUTROPHILS % 65.1 % (36.0-66.0); PLATELET COUNT, AUTOMATED 205 10^3/uL (150-450); RED BLOOD COUNT 3.98 10^6/uL (4.00-5.40); WHITE BLOOD COUNT 7.2 10^3/uL (4.0-10.0)
[2020-05-16 20:56] LABS: BLOOD UREA NITROGEN 14 MG/DL (7-18); CALCIUM LEVEL 8.4 MG/DL (8.5-10.1); CARBON DIOXIDE LEVEL 25 MEQ/L (21-32); CHLORIDE LEVEL 111 MEQ/L (98-107); CREATININE FOR GFR 0.81 MG/DL (0.55-1.30); GLOMERULAR FILTRATION RATE > 60.0 (>60); GLUCOSE, FASTING 106 MG/DL (70-100); POTASSIUM SERUM 3.5 MEQ/L (3.5-5.1); SODIUM LEVEL 142 MEQ/L (136-145)
[2020-05-16 21:05] LABS: HCG, SERUM QUALITATIVE NEGATIVE (NEGATIVE)
[2020-05-16 21:38] VITALS: BP 159/71
[2020-05-17] MEDS ORDERED: IBUP1TAB7 PO (09:57)
[2020-05-17] MEDS ORDERED: IBUP80TA PO (12:19)
[2020-05-17] MEDS ORDERED: ACET325T43 PO (12:28)
[2020-05-17] MEDS ORDERED: PEPC1TAB5 PO (23:35)
== END 2020-05-16 21:42 | disposition home or self-care (01) ==
LOC: M ED 19:20
DX: R10.30 Lower abdominal pain, unspecified (principal); G43.909 Migraine, unspecified, not intractable, without status migrainosus; I10 Essential (primary) hypertension; E78.00 Pure hypercholesterolemia, unspecified; I95.9 Hypotension, unspecified; Z86.718 Personal history of other venous thrombosis and embolism; J45.909 Unspecified asthma, uncomplicated; K21.9 Gastro-esophageal reflux disease without esophagitis; E28.2 Polycystic ovarian syndrome; F43.10 Post-traumatic stress disorder, unspecified; F32.9 Major depressive disorder, single episode, unspecified; F25.9 Schizoaffective disorder, unspecified; F60.3 Borderline personality disorder; Z90.721 Acquired absence of ovaries, unilateral

== ENCOUNTER 2020-05-16 23:03 | Emergency (ER) | payer OTHER ==
[~2020-05-16] VITALS: Ht 167.6 cm; Wt 157.7 kg
[2020-05-16 23:03] VITALS: BP 125/91
[2020-05-17] MEDS ORDERED: IBUPROFEN 800 MG TAB PO ONE
[2020-05-17] MEDS ORDERED: IBUP1TAB7 PO (09:57)
[2020-05-17] MEDS ORDERED: IBUP80TA PO (12:19)
[2020-05-17] MEDS ORDERED: ACET325T43 PO (12:28)
[2020-05-17] MEDS ORDERED: PEPC1TAB5 PO (23:35)
[2020-05-18] MEDS ORDERED: BENZ200C70 PO (16:26)
== END 2020-05-17 01:01 | disposition home or self-care (01) ==
LOC: M ED 23:03
DX: Z76.5 Malingerer [conscious simulation] (principal); F60.3 Borderline personality disorder; F31.9 Bipolar disorder, unspecified; S52.92XD Unspecified fracture of left forearm, subsequent encounter for closed fracture with routine healing; X58.XXXD Exposure to other specified factors, subsequent encounter; F17.200 Nicotine dependence, unspecified, uncomplicated; Z81.8 Family history of other mental and behavioral disorders; Z91.018 Allergy to other foods; Z88.0 Allergy status to penicillin; Z88.2 Allergy status to sulfonamides; Z88.8 Allergy status to other drugs, medicaments and biological substances; Z91.040 Latex allergy status; Z88.1 Allergy status to other antibiotic agents

== ENCOUNTER 2020-05-17 09:39 | Emergency (ER) | payer OTHER ==
[~2020-05-17] VITALS: Ht 167.6 cm; Wt 157.9 kg
[2020-05-17] MEDS ORDERED: IBUP1TAB7 PO (09:57)
[2020-05-17] MEDS ORDERED: KETOROLAC 60MG 2ML VIAL IM ONE (10:45)
[2020-05-17] MEDS ORDERED: IBUP80TA PO (12:19)
[2020-05-17 12:28] VITALS: BP 126/52
[2020-05-17] MEDS ORDERED: ACET325T43 PO (12:28)
[2020-05-17] MEDS ORDERED: PEPC1TAB5 PO (23:35)
[2020-05-18] MEDS ORDERED: BENZ200C70 PO (16:26)
== END 2020-05-17 12:31 | disposition home or self-care (01) ==
LOC: M ED 09:39
DX: M79.602 Pain in left arm (principal); M79.89 Other specified soft tissue disorders; S52.92XD Unspecified fracture of left forearm, subsequent encounter for closed fracture with routine healing; W19.XXXD Unspecified fall, subsequent encounter; F60.3 Borderline personality disorder; F25.9 Schizoaffective disorder, unspecified; E28.2 Polycystic ovarian syndrome; K21.9 Gastro-esophageal reflux disease without esophagitis; G43.909 Migraine, unspecified, not intractable, without status migrainosus; F17.200 Nicotine dependence, unspecified, uncomplicated
CPT/HCPCS: 96372; 99283; J1885

== ENCOUNTER 2020-05-17 21:47 | Emergency (ER) | payer OTHER ==
[~2020-05-17] VITALS: Ht 167.6 cm; Wt 157.7 kg
[2020-05-17 21:47] VITALS: BP 112/73
[~2020-05-17 21:47] MED LIST changes: +ACET325T43 PO; +IBUP1TAB7 PO; +IBUP80TA PO
[2020-05-17] MEDS ORDERED: GI COCKTAIL 50ML BTL(HYOSCYAMINE/MAALOX/LIDOCAINE VISCOUS)(1:3:1) PO ONE (23:15)
[2020-05-17] MEDS ORDERED: PEPC1TAB5 PO (23:35)
[2020-05-18] MEDS ORDERED: BENZ200C70 PO (16:26)
== END 2020-05-17 23:44 | disposition home or self-care (01) ==
LOC: M ED 21:47
DX: K29.70 Gastritis, unspecified, without bleeding (principal); Z73.3 Stress, not elsewhere classified; Z91.018 Allergy to other foods; Z88.0 Allergy status to penicillin; Z88.2 Allergy status to sulfonamides; Z88.8 Allergy status to other drugs, medicaments and biological substances; Z91.040 Latex allergy status; Z90.89 Acquired absence of other organs; Z90.721 Acquired absence of ovaries, unilateral

== ENCOUNTER 2020-05-18 15:31 | Emergency (ER) | payer OTHER ==
[~2020-05-18] VITALS: Ht 167.6 cm; Wt 157.8 kg
[2020-05-18 15:35] VITALS: BP 124/73
[2020-05-18] MEDS ORDERED: BENZ200C70 PO (16:26)
[2020-05-18] MEDS ORDERED: BENZONATATE 100 MG CAP PO ONE (16:30)
--- NOTE | 2020-05-19 06:16 | ECGEPIP ---
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
== END 2020-05-18 17:40 | disposition home or self-care (01) ==
LOC: M ED 15:31
DX: R05 Cough (principal); R07.9 Chest pain, unspecified; L60.0 Ingrowing nail; B35.1 Tinea unguium; F17.200 Nicotine dependence, unspecified, uncomplicated; Z91.018 Allergy to other foods; Z88.0 Allergy status to penicillin; Z88.2 Allergy status to sulfonamides; Z88.8 Allergy status to other drugs, medicaments and biological substances; Z91.040 Latex allergy status

== ENCOUNTER 2020-05-18 19:54 | Emergency (ER) | payer OTHER ==
[~2020-05-18 19:54] MED LIST changes: +BENZ200C70 PO
[2020-05-18 23:45] VITALS: BP 128/67
== END 2020-05-18 23:53 | disposition home or self-care (01) ==
LOC: M ED 19:54
DX: Z76.5 Malingerer [conscious simulation] (principal); F60.3 Borderline personality disorder; F17.210 Nicotine dependence, cigarettes, uncomplicated; Z91.018 Allergy to other foods; Z88.0 Allergy status to penicillin; Z88.2 Allergy status to sulfonamides; Z88.8 Allergy status to other drugs, medicaments and biological substances; Z79.899 Other long term (current) drug therapy

== ENCOUNTER 2020-05-20 21:43 | Emergency (ER) | payer OTHER ==
[~2020-05-20] VITALS: Ht 167.6 cm; Wt 159.0 kg
[2020-05-20 21:43] VITALS: BP 135/65
== END 2020-05-20 22:11 | disposition left against medical advice (07) ==
LOC: M ED 21:43
DX: Z53.21 Procedure and treatment not carried out due to patient leaving prior to being seen by health care provider (principal)

== ENCOUNTER 2020-05-22 13:22 | Emergency (ER) | payer OTHER ==
[~2020-05-22] VITALS: Ht 167.6 cm; Wt 92.3 kg
[2020-05-22 13:23] VITALS: BP 118/56
== END 2020-05-22 14:23 | disposition home or self-care (01) ==
LOC: M ED 13:22
DX: S91.202A Unspecified open wound of left great toe with damage to nail, initial encounter (principal); X58.XXXA Exposure to other specified factors, initial encounter; Y92.9 Unspecified place or not applicable; Y93.89 Activity, other specified; Y99.9 Unspecified external cause status; F60.3 Borderline personality disorder; E28.2 Polycystic ovarian syndrome; G43.909 Migraine, unspecified, not intractable, without status migrainosus; K21.9 Gastro-esophageal reflux disease without esophagitis; F25.1 Schizoaffective disorder, depressive type; F17.200 Nicotine dependence, unspecified, uncomplicated; Z79.899 Other long term (current) drug therapy; Z91.018 Allergy to other foods; Z88.0 Allergy status to penicillin; Z88.2 Allergy status to sulfonamides; Z91.041 Radiographic dye allergy status; Z88.8 Allergy status to other drugs, medicaments and biological substances

== ENCOUNTER 2020-05-23 02:15 | Emergency (ER) | payer OTHER ==
[~2020-05-23] VITALS: Ht 167.6 cm; Wt 155.0 kg
[2020-05-23] MEDS ORDERED: NS 500 ML IV ONE (02:45)
[2020-05-23 03:35] LABS: BASO % 0.3 % (0.0-1.0); EOS # 0.3 10^3/uL (0.0-0.5); EOS % 4.8 % (0.0-3.0); HEMATOCRIT 34.5 % (36.0-47.0); HEMOGLOBIN 10.3 g/dl (12.0-15.5); LYMPH # 1.6 10^3/uL (1.5-5.0); LYMPH % 25.9 % (24.0-44.0); MEAN CORPUSCULAR HEMOGLOBIN 25.9 pg (27.0-33.0); MEAN CORPUSCULAR HGB CONC 29.9 g/dl (32.0-36.5); MEAN CORPUSCULAR VOLUME 86.7 fl (80.0-96.0); MONO # 0.5 10^3/uL (0.0-0.8); MONO % 8.6 % (0.0-5.0); NEUTROPHILS # 3.8 10^3/uL (1.5-8.5); NEUTROPHILS % 60.2 % (36.0-66.0); PLATELET COUNT, AUTOMATED 211 10^3/uL (150-450); RED BLOOD COUNT 3.98 10^6/uL (4.00-5.40); WHITE BLOOD COUNT 6.3 10^3/uL (4.0-10.0)
[2020-05-23 04:00] LABS: HCG, SERUM QUALITATIVE NEGATIVE (NEGATIVE)
[2020-05-23 04:06] LABS: ALBUMIN 3.3 GM/DL (3.2-5.2); ALT/SGPT 28 U/L (12-78); BILIRUBIN,DIRECT < 0.1 MG/DL (0.0-0.2); BILIRUBIN,TOTAL 0.2 MG/DL (0.2-1.0); BLOOD UREA NITROGEN 15 MG/DL (7-18); CALCIUM LEVEL 8.3 MG/DL (8.5-10.1); CARBON DIOXIDE LEVEL 26 MEQ/L (21-32); CHLORIDE LEVEL 108 MEQ/L (98-107); CREATININE FOR GFR 0.77 MG/DL (0.55-1.30); FREE T4 1.06 NG/DL (0.76-1.46); GLOMERULAR FILTRATION RATE > 60.0 (>60); GLUCOSE, FASTING 122 MG/DL (70-100); LIPASE 100 U/L (73-393); POTASSIUM SERUM 3.8 MEQ/L (3.5-5.1); SODIUM LEVEL 143 MEQ/L (136-145); TOTAL PROTEIN 6.4 GM/DL (6.4-8.2)
--- NOTE | 2020-05-23 04:59 | REPVR ---
PROCEDURE INFORMATION: Exam: XR Chest, 2 Views Exam date and time: 05/23/2020 4:21 AM Age: 20 years old Clinical indication: Cough; Chest pain TECHNIQUE: Imaging protocol: XR of the chest Views: 2 views. COMPARISON: CR Chest, 2 view PA, Lat 03/16/2020 9:25 PM FINDINGS: Lungs: Low lung volume. No consolidation. Pleural space: Unremarkable. No pleural effusion. No pneumothorax. Heart/Mediastinum: Unremarkable. No cardiomegaly. Bones/joints: Unremarkable. IMPRESSION: Low lung volume with no acute findings. Electronically signed by: Jet Gray On 05/23/2020 04:58:38 AM
[2020-05-23 05:51] VITALS: BP 112/58
--- NOTE | 2020-05-23 07:33 | ECGEPIP ---
[facility] - ED Test Date: 2020-05-23 Pat Name: RAMYA MCCARTNEY Department: Room: - Gender: Female Interventional Radiology Technologist: regis LINDOB: 2000 Requested By: GEOFF Mckinney Order Number: [id number] Reading MD: Jimi Meyer Measurements Intervals [place] Rate: 87 P: 7 IN: 141 QRS: 17 QRSD: 93 T: 30 QT: 350 QTc: 422 Interpretive Statements SINUS RHYTHM NSTTW ABNORMALITY(S) SIMILAR TO 05/18/20 Electronically Signed on 05-23-2020 7:33:27 EDT by Jimi Meyer
== END 2020-05-23 05:58 | disposition home or self-care (01) ==
LOC: M ED 02:15
DX: R11.10 Vomiting, unspecified (principal); R07.89 Other chest pain; I10 Essential (primary) hypertension; E66.9 Obesity, unspecified; K21.9 Gastro-esophageal reflux disease without esophagitis; F17.200 Nicotine dependence, unspecified, uncomplicated; Z79.899 Other long term (current) drug therapy; Z88.0 Allergy status to penicillin; Z88.2 Allergy status to sulfonamides; Z88.8 Allergy status to other drugs, medicaments and biological substances; Z88.1 Allergy status to other antibiotic agents; Z91.018 Allergy to other foods; Z91.040 Latex allergy status

== ENCOUNTER 2020-05-27 04:03 | Inpatient (IN) | payer OTHER ==
[~2020-05-27] VITALS: Ht 167.6 cm; Wt 152.1 kg
[2020-05-27] MEDS ORDERED: LORazepam 1 MG TAB PO STA (04:47)
[2020-05-27] MEDS ORDERED: PRAZ5CAP PO (04:50)
[2020-05-27] MEDS ORDERED: CEPHALEXIN 500 MG CAP PO ONE (05:00)
[2020-05-27] MEDS ORDERED: BENZ200C70 PO (06:36)
[2020-05-27] MEDS ORDERED: IBUP1TAB7 PO (06:36)
[2020-05-27] MEDS ORDERED: ACET1TAB55 PO (06:36)
[2020-05-27] MEDS ORDERED: FLUO20CA22 PO (06:36)
[2020-05-27] MEDS ORDERED: PRAZ5CAP22 PO (06:36)
[2020-05-27] MEDS ORDERED: ARIP1TAB10 PO (06:36)
[2020-05-27] MEDS ORDERED: FAMO20TA PO (06:36)
[2020-05-27] MEDS ORDERED: PATIENT COMMENT (06:37)
[2020-05-27] MEDS ORDERED: ARIPiprazole 10 MG TAB PO SCH (09:00)
[2020-05-27] MEDS ORDERED: FLUoxetine 20 MG CAP PO SCH (09:00)
[2020-05-27] MEDS ORDERED: MAALOX 30 ML SUSP *UDC PO PRN (17:00)
[2020-05-27] MEDS ORDERED: BENZONATATE 100 MG CAP PO PRN (17:00)
[2020-05-27] MEDS ORDERED: ACETAMINOPHEN TAB 650MG DOSE (2X325MG) PO PRN (17:00)
[2020-05-27] MEDS ORDERED: MOM 30ML SUSPENSION UDC PO PRN (17:00)
[2020-05-27] MEDS: PRAZOSIN 1 MG CAP PO SCH (20:00)
[2020-05-27] MEDS: traZODone 50 MG TAB PO PRN (20:01)
[2020-05-27] MEDS: FAMOTIDINE 20 MG TAB PO SCH (20:01)
[2020-05-27] MEDS: IBUPROFEN 800 MG TAB PO PRN (20:02)
[2020-05-28] MEDS: FAMOTIDINE 20 MG TAB PO SCH ×2 (08:08→21:01)
[2020-05-28] MEDS: FLUoxetine 20 MG CAP PO SCH (08:08)
[2020-05-28] MEDS: ARIPiprazole 10 MG TAB PO SCH (08:09)
[2020-05-28] MEDS: IBUPROFEN 800 MG TAB PO PRN ×2 (08:10→21:02)
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
--- NOTE | 2020-05-28 13:30 | HPEPDOC ---
[facility] Medical History & Physical Date of Admission May 28, 2020 Date of Service: May 28, 2020 History and Physical CHIEF COMPLAINT: Medical H&P for [facility] HISTORY OF PRESENT ILLNESS: 20 year old female admitted to inpatient mental health unit for suicidal ideation. Hospitalist consulted for medical comanage ment. Patient seen and examined at bedside. Patient complains of recent history of cough, duration 4 weeks, occasionally productive of yellow to green sputum. She also admits to nicotine abuse, but states she quit roughly 3 weeks ago. She states her boyfriend was diagnosed with an upper respiratory tract infection which has resolved. She also notes some pain and tenderness with her right hallux and had a recent ingrown toenail removed about 2 weeks ago. She denies chest pain, shortness of breath, headaches, changes in vision, fevers, chills, nausea, vomiting, diarrhea. PAST MEDICAL HISTORY: Depression, DLP (not on meds), HTN (not on meds), Obesity, GERD ALLERGIES: Please see below. REVIEW OF SYSTEMS: Negative except as per HPI. HOME MEDICATIONS: Please see below. PHYSICAL EXAMINATION: VITAL SIGNS: See below General: NAD, sitting comfortably in chair HEENT: NC/AT, EOMI Lungs: CTA B/L Heart: +S1S2, RRR Abd: soft, obese, NT, +BS Ext: bandages over right hallux LABORATORY DATA: See below. MICROBIOLOGY: Please see below. ASSESSMENT: 20 yo female admitted to [facility], hospitalist consulted for medical co- management. #Suicidal ideation. Follow as per primary team. Psychiatry #cough - likely bronchitis - will get sputum culture, respiratory panel - check CBC #right hallux swelling - recent ingrown toe nail removal - podiatry c/s pending - dr. young #HTN #DLP #obesity - complicates care #GERD #DVT prophylaxis - encourage ambulation Vital Signs Vital Signs Date Time Temp Pulse Resp B/P (MAP) Pulse Ox O2 Delivery O2 Flow Rate FiO2 05/27/20 20:00 133/65 05/27/20 17:34 98.4 90 18 98 05/27/20 04:51 Room Air Home Medications Scheduled Aripiprazole (Aripiprazole) 15 Mg Tablet, 15 MG PO DAILY Famotidine (Famotidine) 20 Mg Tablet, 20 MG PO BID Fluoxetine Hcl (Fluoxetine HCl) 20 Mg Capsule, 20 MG PO DAILY Prazosin HCl (Prazosin HCl) 5 Mg Capsule, 5 MG PO QHS Scheduled PRN Acetaminophen (Acetaminophen) 325 Mg Tablet, 325 MG PO Q4H PRN for PAIN Benzonatate (Benzonatate) 200 Mg Capsule, 200 MG PO TID PRN for COUGH Ibuprofen (Ibuprofen) 800 Mg Tablet, 800 MG PO Q8H PRN for PAIN Miscellaneous Medications [Patient Comment] PATIENT NOT A GOOD HISTORIAN. VERIFIED WITH EXTERNAL MED HISTORY. Allergies Coded Allergies: Mushroom (Verified Allergy, Unknown, 04/05/20) Penicillins (Verified Allergy, Unknown, 04/05/20) Sulfa (Sulfonamide Antibiotics) (Verified Allergy, Unknown, 04/05/20) TURKEY (Verified Allergy, Unknown, 04/05/20) emtricitabine (Verified Allergy, Unknown, 04/05/20) haloperidol (Verified Allergy, Unknown, GI BLEED, 04/14/20) latex (Verified Allergy, Unknown, 04/05/20) raltegravir (Verified Allergy, Unknown, 04/05/20) sulfamethoxazole (Verified Allergy, Unknown, 04/05/20) tomato (Verified Allergy, Unknown, 04/05/20) trimethoprim (Verified Allergy, Unknown, 04/05/20) A-FIB/CHADSVASC A-FIB History Current/History of A-Fib/PAF?: No GARCÍA MUSTAFA MD May 28, 2020 13:30
[2020-05-28 13:56] LABS: BASO % 0.3 % (0.0-1.0); EOS # 0.2 10^3/uL (0.0-0.5); HEMATOCRIT 34.6 % (36.0-47.0); HEMOGLOBIN 10.2 g/dl (12.0-15.5); LYMPH # 1.3 10^3/uL (1.5-5.0); LYMPH % 20.7 % (24.0-44.0); MEAN CORPUSCULAR HEMOGLOBIN 25.2 pg (27.0-33.0); MEAN CORPUSCULAR HGB CONC 29.5 g/dl (32.0-36.5); MEAN CORPUSCULAR VOLUME 85.6 fl (80.0-96.0); MONO # 0.5 10^3/uL (0.0-0.8); MONO % 8.7 % (0.0-5.0); NEUTROPHILS # 4.1 10^3/uL (1.5-8.5); PLATELET COUNT, AUTOMATED 167 10^3/uL (150-450); RED BLOOD COUNT 4.04 10^6/uL (4.00-5.40); WHITE BLOOD COUNT 6.1 10^3/uL (4.0-10.0)
[2020-05-28 14:26] LABS: ALBUMIN 3.4 GM/DL (3.2-5.2); ALT/SGPT 35 U/L (12-78); BILIRUBIN,TOTAL 0.1 MG/DL (0.2-1.0); BLOOD UREA NITROGEN 12 MG/DL (7-18); CALCIUM LEVEL 8.7 MG/DL (8.5-10.1); CARBON DIOXIDE LEVEL 27 MEQ/L (21-32); CHLORIDE LEVEL 107 MEQ/L (98-107); CREATININE FOR GFR 0.76 MG/DL (0.55-1.30); GLOMERULAR FILTRATION RATE > 60.0 (>60); GLUCOSE, FASTING 84 MG/DL (70-100); SODIUM LEVEL 140 MEQ/L (136-145); TOTAL PROTEIN 6.5 GM/DL (6.4-8.2)
[2020-05-28 16:39] VITALS: BP 126/62
[2020-05-28] MEDS: PRAZOSIN 1 MG CAP PO SCH (21:01)
[2020-05-28] MEDS: OLANZapine ORAL DISINTEGRATING TAB 5MG PO PRN (21:02)
[2020-05-28] MEDS: traZODone 50 MG TAB PO PRN (21:02)
[2020-05-29] MEDS: FAMOTIDINE 20 MG TAB PO SCH ×2 (09:17→20:46)
[2020-05-29] MEDS: FLUoxetine 20 MG CAP PO SCH (09:17)
[2020-05-29] MEDS: ARIPiprazole 10 MG TAB PO SCH (09:17)
[2020-05-29] MEDS: PILL CUTTER 1 EACH XX PRN (09:18)
--- NOTE | 2020-05-29 09:39 | MHIPNPDOC ---
[facility] Progress Note Progress Note DATE OF SERVICE: 05/29/20 Subjective HPI: Bernice presents today for concerns regarding her social anxiety and borderline personality disorder. Patient is having intermittent suicidal thoughts and is angered by talk of long-term care. Objective Appearance: Poor Hygiene. Behavior: Irritable. Thought Content: Has Suicidal thoughts. Judgement: Poor. Insight: Poor. Assessment F31.9 Bipolar disorder, unspecified F60.2 Antisocial personality disorder Plan Continue with current medications and will attempt to send a long-term treatment because she is really unstable. Patient needs a residential level program. Vital Signs Vital Signs Date Time Temp Pulse Resp B/P (MAP) Pulse Ox O2 Delivery O2 Flow Rate FiO2 05/28/20 21:01 132/92 05/28/20 16:39 98.8 92 20 05/27/20 17:34 98 05/27/20 04:51 Room Air Laboratory Data 24H Labs Laboratory Tests 2 05/28/20 13:37: Immature Granulocyte % (Auto) 0.3, Neutrophils (%) (Auto) 67.0H, Lymphocytes (%) (Auto) 20.7L, Monocytes (%) (Auto) 8.7H, Eosinophils (%) (Auto) 3.0, Basophils (%) (Auto) 0.3, Neutrophils # (Auto) 4.1, Lymphocytes # (Auto) 1.3L, Monocytes # (Auto) 0.5, Eosinophils # (Auto) 0.2, Basophils # (Auto) 0.0, Nucleated Red Blood Cells % (auto) 0.0, Anion Gap 6L, Glomerular Filtration Rate > 60.0, Calcium Level 8.7, Total Bilirubin 0.1L, Aspartate Amino Transf (AST/SGOT) 22, Alanine Aminotransferase (ALT/SGPT) 35, Alkaline Phosphatase 81, Total Protein 6.5, Albumin 3.4, Albumin/Globulin Ratio 1.1L CBC/BMP Laboratory Tests 05/28/20 13:37 Current Medications Current Medications Medications (Trade) Dose Ordered Sig/Susy Route PRN Reason Start Time Stop Time Status Last Admin Dose Admin Acetaminophen (Tylenol Tab) 650 mg Q6HP PRN PO HEADACHE or DISCOMFORT 05/27/20 17:00 Al Hydrox/Mg Hydrox/Simethicone (Mylanta) 30 ml Q4HP PRN PO HEARTBURN/INDIGESTION 05/27/20 17:00 Aripiprazole (AbiLIFY) 15 mg DAILY PO 05/27/20 09:00 05/27/20 17:07 DC 05/27/20 09:22 Aripiprazole (AbiLIFY) 15 mg DAILY PO 05/28/20 09:00 05/29/20 09:17 Benzonatate (Tessalon Perles) 200 mg TIDP PRN PO cough 05/27/20 17:00 Famotidine (Pepcid) 20 mg BID PO 05/27/20 21:00 05/29/20 09:17 Fluoxetine HCl (PROzac) 20 mg DAILY PO 05/27/20 09:00 05/27/20 17:09 DC 05/27/20 09:21 Fluoxetine HCl (PROzac) 20 mg DAILY PO 05/28/20 09:00 05/29/20 09:17 Home Med (Med Rec Complete!) ASDIRECTED XX 05/27/20 06:45 05/27/20 06:39 DC Ibuprofen (Advil) 800 mg Q8HP PRN PO PAIN 05/27/20 17:00 05/28/20 21:02 Lorazepam (Ativan) 1 mg STAT STAT PO 05/27/20 04:47 05/27/20 04:50 DC 05/27/20 05:04 Magnesium Hydroxide (Milk Of Magnesia) 30 ml DAILYPRN PRN PO CONSTIPATION 05/27/20 17:00 Olanzapine (ZyPREXA ZYDIS) 10 mg Q4HP PRN PO ANXIETY/AGITATION 05/28/20 20:45 05/28/20 21:02 Prazosin HCl (Minipress) 5 mg QHS PO 05/27/20 21:00 05/28/20 21:01 Trazodone HCl (Desyrel) 50 mg QHSP PRN PO INSOMNIA 05/27/20 17:00 05/28/20 21:02 Allergies Coded Allergies: Mushroom (Verified Allergy, Unknown, 04/05/20) Penicillins (Verified Allergy, Unknown, 04/05/20) Sulfa (Sulfonamide Antibiotics) (Verified Allergy, Unknown, 04/05/20) TURKEY (Verified Allergy, Unknown, 04/05/20) emtricitabine (Verified Allergy, Unknown, 04/05/20) haloperidol (Verified Allergy, Unknown, GI BLEED, 04/14/20) latex (Verified Allergy, Unknown, 04/05/20) raltegravir (Verified Allergy, Unknown, 04/05/20) sulfamethoxazole (Verified Allergy, Unknown, 04/05/20) tomato (Verified Allergy, Unknown, 04/05/20) trimethoprim (Verified Allergy, Unknown, 04/05/20) PHYLLIS RIZZO DO May 29, 2020 09:39
[2020-05-29] MEDS: IBUPROFEN 800 MG TAB PO PRN (14:28)
[2020-05-29] MEDS: OLANZapine ORAL DISINTEGRATING TAB 5MG PO PRN (14:29)
[2020-05-29] MEDS: PRAZOSIN 1 MG CAP PO SCH (20:46)
[2020-05-29] MEDS: traZODone 50 MG TAB PO PRN (20:46)
[2020-05-30 07:05] VITALS: BP 125/61
[2020-05-30] MEDS: FLUoxetine 20 MG CAP PO SCH (09:05)
[2020-05-30] MEDS: IBUPROFEN 800 MG TAB PO PRN ×2 (09:05→20:07)
[2020-05-30] MEDS: FAMOTIDINE 20 MG TAB PO SCH ×2 (09:05→20:06)
[2020-05-30] MEDS: ARIPiprazole 10 MG TAB PO SCH (09:05)
[2020-05-30] MEDS: PILL CUTTER 1 EACH XX PRN (09:06)
--- NOTE | 2020-05-30 10:29 | MHIPNPDOC ---
[facility] Progress Note Progress Note DATE OF SERVICE: 05/30/20 Subjective HPI: The patient is met with multiple times throughout the day. She continues to ask about being discharged as she wants to go about her day. However, she's very unamenable to any discussion about long-term after an explanation of the rationale for why long-term is needed due to her multiple presentations as well as continued suicidal ideation that appears highly unstable. The patient at first threatened this provider stating that he would be fired if he did not release. When it was emphasized that she does have recourse to request a court hearing, she reported that she didnt feel this was fast enough and then progressively became more upset demanding, yelling, and then as a final parting, the patient threatened to kill this provider if she was not released. She generally has been behaviorally problematic throughout the day. Objective Appearance: Poor hygiene. Mood: Euthymic. Appropriately reactive. Irritable. Speech: Spontaneous and Fluid. Loud. Thought Content: Reports homicidal thoughts towards this provider. Preservative on discharge. Judgement: Poor. Insight: Poor. Assessment F60.3 Borderline personality disorder F23 Brief psychotic disorder F33.8 Other recurrent depressive disorders Plan Plan is to continue patients Abilify and Prozac at this time. Still believe she will need to go to long-term treatment. She each time, is repulsed about being discharged today. She continues to prove more how her stability is quite fleeting. Reviewing her records reveal that there was a time in which she had gone to [place] with some positive effects for her stability. Shes quite threatening and menacing whenever she doesnt get what she desires, however, firmly reemphasizing this despite her threats and her slurs is critical as she appears to be heavily focused on this. However, long-term treatment would be the most appropriate thing for her although she does not see that as she is primarily focused on other things with no insight into her problem. Vital Signs Vital Signs Date Time Temp Pulse Resp B/P (MAP) Pulse Ox O2 Delivery O2 Flow Rate FiO2 05/30/20 07:05 98.4 80 14 125/61 (82) Room Air 05/27/20 17:34 98 Current Medications Current Medications Medications (Trade) Dose Ordered Sig/Susy Route PRN Reason Start Time Stop Time Status Last Admin Dose Admin Acetaminophen (Tylenol Tab) 650 mg Q6HP PRN PO HEADACHE or DISCOMFORT 05/27/20 17:00 Al Hydrox/Mg Hydrox/Simethicone (Mylanta) 30 ml Q4HP PRN PO HEARTBURN/INDIGESTION 05/27/20 17:00 Aripiprazole (AbiLIFY) 15 mg DAILY PO 05/27/20 09:00 05/27/20 17:07 DC 05/27/20 09:22 Aripiprazole (AbiLIFY) 15 mg DAILY PO 05/28/20 09:00 05/30/20 09:05 Benzonatate (Tessalon Perles) 200 mg TIDP PRN PO cough 05/27/20 17:00 Famotidine (Pepcid) 20 mg BID PO 05/27/20 21:00 05/30/20 09:05 Fluoxetine HCl (PROzac) 20 mg DAILY PO 05/27/20 09:00 05/27/20 17:09 DC 05/27/20 09:21 Fluoxetine HCl (PROzac) 20 mg DAILY PO 05/28/20 09:00 05/30/20 09:05 Home Med (Med Rec Complete!) ASDIRECTED XX 05/27/20 06:45 05/27/20 06:39 DC Ibuprofen (Advil) 800 mg Q8HP PRN PO PAIN 05/27/20 17:00 05/30/20 09:05 Lorazepam (Ativan) 1 mg STAT STAT PO 05/27/20 04:47 05/27/20 04:50 DC 05/27/20 05:04 Magnesium Hydroxide (Milk Of Magnesia) 30 ml DAILYPRN PRN PO CONSTIPATION 05/27/20 17:00 Olanzapine (ZyPREXA ZYDIS) 10 mg Q4HP PRN PO ANXIETY/AGITATION 05/28/20 20:45 05/29/20 14:29 Prazosin HCl (Minipress) 5 mg QHS PO 05/27/20 21:00 05/29/20 20:46 Trazodone HCl (Desyrel) 50 mg QHSP PRN PO INSOMNIA 05/27/20 17:00 05/29/20 20:46 Allergies Coded Allergies: Mushroom (Verified Allergy, Unknown, 04/05/20) Penicillins (Verified Allergy, Unknown, 04/05/20) Sulfa (Sulfonamide Antibiotics) (Verified Allergy, Unknown, 04/05/20) TURKEY (Verified Allergy, Unknown, 04/05/20) emtricitabine (Verified Allergy, Unknown, 04/05/20) haloperidol (Verified Allergy, Unknown, GI BLEED, 04/14/20) latex (Verified Allergy, Unknown, 04/05/20) raltegravir (Verified Allergy, Unknown, 04/05/20) sulfamethoxazole (Verified Allergy, Unknown, 04/05/20) tomato (Verified Allergy, Unknown, 04/05/20) trimethoprim (Verified Allergy, Unknown, 04/05/20) PHYLLIS RIZZO DO May 30, 2020 10:29
[2020-05-30 16:07] VITALS: BP 123/69
[2020-05-30] MEDS: OLANZapine ORAL DISINTEGRATING TAB 5MG PO PRN (20:07)
[2020-05-30] MEDS: traZODone 50 MG TAB PO PRN (20:08)
[2020-05-30] MEDS: PRAZOSIN 1 MG CAP PO SCH (20:08)
[2020-05-31 06:26] VITALS: BP 127/55
[2020-05-31] MEDS: PILL CUTTER 1 EACH XX PRN (08:37)
[2020-05-31] MEDS: ARIPiprazole 10 MG TAB PO SCH (08:38)
[2020-05-31] MEDS: FAMOTIDINE 20 MG TAB PO SCH ×2 (08:39→20:28)
[2020-05-31] MEDS: FLUoxetine 20 MG CAP PO SCH (08:39)
[2020-05-31] MEDS: IBUPROFEN 800 MG TAB PO PRN ×2 (08:39→20:28)
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
[2020-05-31] MEDS: OLANZapine ORAL DISINTEGRATING TAB 5MG PO PRN (15:33)
[2020-05-31 16:27] VITALS: BP 112/70
[2020-05-31] MEDS ORDERED: ONDANSETRON 4 MG TAB PO ONE (17:00)
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
[2020-05-31] MEDS: traZODone 50 MG TAB PO PRN (20:28)
[2020-05-31] MEDS: PRAZOSIN 1 MG CAP PO SCH (20:29)
[2020-06-01 06:24] VITALS: BP 116/55
[2020-06-01] MEDS: FAMOTIDINE 20 MG TAB PO SCH ×2 (08:47→20:51)
[2020-06-01] MEDS: FLUoxetine 20 MG CAP PO SCH (08:47)
[2020-06-01] MEDS: OLANZapine ORAL DISINTEGRATING TAB 5MG PO PRN (08:47)
[2020-06-01] MEDS: IBUPROFEN 800 MG TAB PO PRN ×2 (08:50→20:52)
[2020-06-01] MEDS: ARIPiprazole 10 MG TAB PO SCH (08:50)
--- NOTE | 2020-06-01 09:00 | REPVR ---
PROCEDURE INFORMATION: Exam: CT Abdomen And Pelvis Without Contrast Exam date and time: 06/01/2020 8:37 AM Age: 20 years old Clinical indication: Abdominal pain; Generalized; Additional info: Abd and pelvic discomfort TECHNIQUE: Imaging protocol: Computed tomography of the abdomen and pelvis without contrast. Radiation optimization: All CT scans at this facility use at least one of these dose optimization techniques: automated exposure control; mA and/or kV adjustment per patient size (includes targeted exams where dose is matched to clinical indication); or iterative reconstruction. COMPARISON: CT ABD PELVIS W/O CONTRAST 02/18/2020 7:29 PM FINDINGS: Heart: There is visualization of the left ventricular myocardium which can be seen with anemia. Liver: The liver remains enlarged. Gallbladder and bile ducts: No calcified stones. No ductal dilation. Pancreas: Normal. No ductal dilation. Spleen: The spleen measures 17.1 cm in craniocaudal extent. Adrenals: Normal. No mass. Kidneys and ureters: Normal. No hydronephrosis. Stomach and bowel: No obstruction. Appendix: No evidence of appendicitis. Intraperitoneal space: No free air. No significant fluid collection. Vasculature: No abdominal aortic aneurysm. Lymph nodes: No enlarged lymph nodes. Urinary bladder: Unremarkable as visualized. Reproductive: Unremarkable as visualized. Bones/joints: No acute fracture. Soft tissues: There are small anterior abdominal wall fat containing hernias. IMPRESSION: 1. Stable hepatosplenomegaly. 2. No acute intra-abdominal abnormality. Electronically signed by: Rohit Avina On 06/01/2020 09:00:35 AM
[2020-06-01] MEDS ORDERED: ONDANSETRON 4 MG TAB PO PRN (10:30)
[2020-06-01 17:00] VITALS: BP 138/76
[2020-06-01 20:51] VITALS: BP 132/71
[2020-06-01] MEDS: PRAZOSIN 1 MG CAP PO SCH (20:51)
[2020-06-01] MEDS: traZODone 50 MG TAB PO PRN (20:51)
[2020-06-02 06:40] VITALS: BP 115/80
[2020-06-02] MEDS: FAMOTIDINE 20 MG TAB PO SCH (08:35)
[2020-06-02] MEDS: ARIPiprazole 10 MG TAB PO SCH (08:36)
[2020-06-02] MEDS: FLUoxetine 20 MG CAP PO SCH (08:37)
[2020-06-02] MEDS: IBUPROFEN 800 MG TAB PO PRN (08:37)
[2020-06-02] MEDS: PILL CUTTER 1 EACH XX PRN (08:38)
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
== END 2020-06-02 12:50 | disposition home or self-care (01) | DRG 752 ==
LOC: M ED 04:03 → M ED INP 16:54 → M PSY 17:40
PROVIDERS: ADMIT Psychiatry & Neurology Addiction Medicine; ATTEND Psychiatry & Neurology Addiction Medicine
DX: F60.3 Borderline personality disorder (principal); Z68.43 Body mass index [BMI] 50.0-59.9, adult; I10 Essential (primary) hypertension; E66.01 Morbid (severe) obesity due to excess calories; J40 Bronchitis, not specified as acute or chronic; F33.8 Other recurrent depressive disorders; F23 Brief psychotic disorder; E78.5 Hyperlipidemia, unspecified; M79.89 Other specified soft tissue disorders; K21.9 Gastro-esophageal reflux disease without esophagitis; Z87.891 Personal history of nicotine dependence; R10.9 Unspecified abdominal pain; Z79.899 Other long term (current) drug therapy; Z88.0 Allergy status to penicillin; Z88.2 Allergy status to sulfonamides; Z88.8 Allergy status to other drugs, medicaments and biological substances; Z91.018 Allergy to other foods

== ENCOUNTER 2020-06-03 17:06 | Emergency (ER) | payer OTHER ==
[~2020-06-03] VITALS: Ht 167.6 cm; Wt 159.0 kg
[2020-06-03 17:06] VITALS: BP 115/62
[~2020-06-03 17:06] MED LIST changes: +ACET1TAB55 PO; +ARIP1TAB10 PO; +FLUO20CA22 PO; +PATIENT COMMENT; +PRAZ5CAP PO; +PRAZ5CAP22 PO
== END 2020-06-03 18:00 | disposition left against medical advice (07) ==
LOC: M ED 17:06
DX: Z53.21 Procedure and treatment not carried out due to patient leaving prior to being seen by health care provider (principal)

== ENCOUNTER 2020-06-04 09:27 | Inpatient (IN) | payer OTHER ==
[~2020-06-04] VITALS: Ht 167.6 cm; Wt 159.2 kg
[2020-06-04] MEDS ORDERED: BENZONATATE 100 MG CAP PO PRN (17:15)
[2020-06-04] MEDS ORDERED: OLANZapine ORAL DISINTEGRATING TAB 5MG PO PRN (17:15)
[2020-06-04] MEDS ORDERED: ACETAMINOPHEN 325 MG TAB PO PRN (17:15)
[2020-06-04 18:15] VITALS: BP 126/72
[2020-06-04] MEDS: FAMOTIDINE 20 MG TAB PO SCH (20:46)
[2020-06-04] MEDS: IBUPROFEN 800 MG TAB PO PRN (20:46)
[2020-06-04] MEDS: PRAZOSIN 1 MG CAP PO SCH (20:46)
[2020-06-04] MEDS: traZODone 50 MG TAB PO SCH (22:54)
[2020-06-05 07:19] VITALS: BP 118/62
[2020-06-05] MEDS: FAMOTIDINE 20 MG TAB PO SCH ×2 (08:55→20:38)
[2020-06-05] MEDS: ARIPiprazole 15 MG TAB (AbiLIFY) PO SCH (08:55)
[2020-06-05] MEDS: FLUoxetine 20 MG CAP PO SCH (08:55)
--- NOTE | 2020-06-05 10:26 | MHHPEPDOC ---
[facility] History & Physical History and Physical DATE OF ADMISSION: Jun 04, 2020 at 17:08 Subjective HPI: 20-year-old woman with a long history of borderline personality disorder presents after reportedly getting into an argument with her mother. She reports that she got into an argument was brought into the ER and transferred to this hospital. She was admitted, she reports that she stopped feeling suicidal quickly after she arrived. She continues to state that she gets into arguments and is brought in. She reports no other changes in her life since her last admission or any changes in her history. Screens negative for psychotic and bipolar disorders. At this time. MEDICAL/PSYCHIATRIC HISTORY: Borderline personality disorder multiple admissions back to [facility], no notable history of suicide attempts that's been confirmed, currently on Abilify and Prozac [facility] FAMILY HISTORY: Unclear, but no significant changes SOCIAL HISTORY - OCCUPATION: Unemployed SOCIAL HISTORY - LIVING SITUATION: reports living with [facility] SOCIAL HISTORY- ADDICTION: Denies any substance use Objective General: [Well dressed with good hygiene] Speech: [Spontaneous and fluid] Thought processes: [Linear and logical] Thought content: [Future orientated] Abstract reasoning, and computation: [Intact] Description of associations: [Intact] Description of abnormal or psychotic thoughts:[Denies any suicidal or homicidal ideation. Denies any auditory or visual hallucinations. Does not appear to be responding to internal stimuli. Does not appear to be endorsing any bizarre or paranoid ideation.] Judgment: baseline Insight:, baseline Orientation: [Alert and orientated 3] Recent and remote memory: [Intact] Attention span and concentration: [Intact] Fund of knowledge: [Adequate] Mood: ["okay"] Affect: [Euthymic with a full range] Assessment Borderline personality disorder Plan Resume patient's home medications, observed overnight and discharge, once legal status has lapsed Treatment priorities are 1. Risk for suicide 2.. Ineffective coping Stay for 1-2 days. Vital Signs Vital Signs Date Time Temp Pulse Resp B/P (MAP) Pulse Ox O2 Delivery O2 Flow Rate FiO2 06/05/20 07:19 96.8 81 14 118/62 (80) Room Air 06/04/20 18:00 100 Medications Scheduled Aripiprazole (Aripiprazole) 15 Mg Tablet, 15 MG PO DAILY, (Reported) Famotidine (Famotidine) 20 Mg Tablet, 20 MG PO BID, (Reported) Fluoxetine Hcl (Fluoxetine HCl) 20 Mg Capsule, 20 MG PO DAILY, (Reported) Ondansetron HCl (Zofran) 4 Mg Tablet, 1 TAB PO Q6H Prazosin HCl (Prazosin HCl) 5 Mg Capsule, 5 MG PO QHS, (Reported) Scheduled PRN Acetaminophen (Acetaminophen) 325 Mg Tablet, 325 MG PO Q4H PRN for PAIN, (Reported) Benzonatate (Benzonatate) 200 Mg Capsule, 200 MG PO TID PRN for COUGH, (Reported) Ibuprofen (Ibuprofen) 800 Mg Tablet, 800 MG PO Q8H PRN for PAIN, (Reported) Allergies Coded Allergies: Mushroom (Verified Allergy, Unknown, 04/05/20) Penicillins (Verified Allergy, Unknown, 04/05/20) Sulfa (Sulfonamide Antibiotics) (Verified Allergy, Unknown, 04/05/20) TURKEY (Verified Allergy, Unknown, 04/05/20) emtricitabine (Verified Allergy, Unknown, 04/05/20) haloperidol (Verified Allergy, Unknown, GI BLEED, 04/14/20) latex (Verified Allergy, Unknown, 04/05/20) raltegravir (Verified Allergy, Unknown, 04/05/20) sulfamethoxazole (Verified Allergy, Unknown, 04/05/20) tomato (Verified Allergy, Unknown, 04/05/20) trimethoprim (Verified Allergy, Unknown, 04/05/20) PHYLLIS RIZZO DO Jun 05, 2020 10:26
[2020-06-05] MEDS: IBUPROFEN 800 MG TAB PO PRN (16:21)
[2020-06-05 19:06] VITALS: BP 129/77
[2020-06-05 20:38] VITALS: BP 141/89
[2020-06-05] MEDS: traZODone 50 MG TAB PO SCH (20:38)
[2020-06-05] MEDS: PRAZOSIN 1 MG CAP PO SCH (20:38)
[2020-06-06 06:12] VITALS: BP 126/79
[2020-06-06] MEDS: ARIPiprazole 15 MG TAB (AbiLIFY) PO SCH (08:50)
[2020-06-06] MEDS: FAMOTIDINE 20 MG TAB PO SCH (08:50)
[2020-06-06] MEDS: FLUoxetine 20 MG CAP PO SCH (08:50)
--- NOTE | 2020-06-06 12:29 | MHDSPDOC ---
[facility] Discharge Summary Discharge Summary DATE OF ADMISSION: Jun 04, 2020 at 17:08 DATE OF DISCHARGE: Jun 06, 2020 at 12:00 DISCHARGE DIAGNOSES: Borderline personality disorder adjustment disorder CONSULTANTS INVOLVED:[ None (basic hospitalist screening)] REASON FOR ADMISSION & TREATMENT AND PROGRESS ON THE UNIT : The patient was admitted for suicidal statements made after getting into argument with family, she was resumed on her home Abilify, Prozac and generally was attention seeking as is her baseline. She improved slowly and subsequently was triaged for discharge with little incident. She continued to have difficulties with compulsive lying. DISCHARGE ASSESSMENT[improved] Legal status considerations: The patient at the time of discharge did not meet criteria for involuntary admission/extension due to having a baseline mental status exam, baseline insight into the situation, They are engaged in the discharge process, as well as being friendly and amenable in behavioral control and havent been engaging in any observed concerning behavior or ideation recently. They decline voluntary extension/admission at this time and must be discharged in good saniya, as Im unable to make a case for holding the patient against their will. They may have historical risk factors of admissions and other interactions with psychiatry however, those are not modifiable from a clinical perspective. The patient will need to be discharged in good saniya. MENTAL STATUS EXAMINATION ON DISCHARGE: General: [Well dressed with good hygiene] Speech: [Spontaneous and fluid] Thought processes: [Linear and logical] Thought content: [Future orientated] Abstract reasoning, and computation: [Intact] Description of associations: [Intact] Description of abnormal or psychotic thoughts:[Denies any suicidal or homicidal ideation. Denies any auditory or visual hallucinations. Does not appear to be responding to internal stimuli. Does not appear to be endorsing any bizarre or paranoid ideation.] Judgment: baseline Insight:, baseline Orientation: [Alert and orientated 3] Recent and remote memory: [Intact] Attention span and concentration: [Intact] Fund of knowledge: [Adequate] Mood: ["okay"] Affect: [Euthymic with a full range] PLAN/FOLLOWUP ARRANGEMENTS: Follow up appointments made (PCP and MH in 5 days of D/C date) and safety plan completed. Safety Planning aspects completed prior to discharge [Family contact completed, educated on safe practices, instructed on removal and mitigation of dangerous means] [RN reviewed crisis hotline information and other aspects to empower patient to access care in interim before next appointment.] The amount of time spent in the coordination of care for this patient was approximately 30 minutes. Vital Signs/I&Os Vital Signs Date Time Temp Pulse Resp B/P (MAP) Pulse Ox O2 Delivery O2 Flow Rate FiO2 06/06/20 06:12 98.0 81 14 126/79 (95) Room Air 06/04/20 18:00 100 Medications Scheduled Aripiprazole (Aripiprazole) 15 Mg Tablet, 15 MG PO DAILY, (Reported) Famotidine (Famotidine) 20 Mg Tablet, 20 MG PO BID, (Reported) Fluoxetine Hcl (Fluoxetine HCl) 20 Mg Capsule, 20 MG PO DAILY, (Reported) Metronidazole (Metronidazole) 500 Mg Tablet, 500 MG PO Q8H for 7 Days, (Reported) STARTED 06/09/2020 Nitrofurantoin Monohyd/M-Cryst (Macrobid 100 mg Capsule) 100 Mg Capsule, 100 MG PO BID for 7 Days, (Reported) STARTED ON 06/09/2020 Omeprazole (Omeprazole) 20 Mg Capsule.dr, 20 MG PO DAILY, (Reported) Prazosin HCl (Prazosin HCl) 5 Mg Capsule, 5 MG PO QHS, (Reported) Scheduled PRN Acetaminophen (Acetaminophen) 325 Mg Tablet, 325 MG PO Q4H PRN for PAIN, (Reported) Benzonatate (Benzonatate) 200 Mg Capsule, 200 MG PO TID PRN for COUGH, (Reported) Ibuprofen (Ibuprofen) 800 Mg Tablet, 800 MG PO Q8H PRN for PAIN, (Reported) Ondansetron HCl (Ondansetron HCl) 4 Mg Tablet, 4 MG PO Q6H PRN for NAUSEA OR VOMITING, (Reported) Allergies Coded Allergies: Mushroom (Verified Allergy, Unknown, 04/05/20) Penicillins (Verified Allergy, Unknown, 04/05/20) Sulfa (Sulfonamide Antibiotics) (Verified Allergy, Unknown, 04/05/20) TURKEY (Verified Allergy, Unknown, 04/05/20) emtricitabine (Verified Allergy, Unknown, 04/05/20) haloperidol (Verified Allergy, Unknown, GI BLEED, 04/14/20) latex (Verified Allergy, Unknown, 04/05/20) raltegravir (Verified Allergy, Unknown, 04/05/20) sulfamethoxazole (Verified Allergy, Unknown, 04/05/20) tomato (Verified Allergy, Unknown, 04/05/20) trimethoprim (Verified Allergy, Unknown, 04/05/20) PHYLLIS RIZZO DO Jun 06, 2020 12:29
[2020-06-06] MEDS ORDERED: ZOFR4TAB16 PO (21:57)
== END 2020-06-06 12:00 | disposition home or self-care (01) | DRG 752 ==
LOC: M ED 09:27 → M ED INP 17:08 → M PSY 18:17
PROVIDERS: ADMIT Psychiatry & Neurology Addiction Medicine; ATTEND Psychiatry & Neurology Addiction Medicine
DX: F60.3 Borderline personality disorder (principal); F43.20 Adjustment disorder, unspecified; Z79.899 Other long term (current) drug therapy; Z88.0 Allergy status to penicillin; Z88.2 Allergy status to sulfonamides; Z88.8 Allergy status to other drugs, medicaments and biological substances; Z91.040 Latex allergy status; Z91.018 Allergy to other foods

== ENCOUNTER 2020-06-06 20:23 | Emergency (ER) | payer OTHER ==
[~2020-06-06] VITALS: Ht 167.6 cm; Wt 156.4 kg
[2020-06-06 20:24] VITALS: BP 125/58
[2020-06-06] MEDS ORDERED: ONDANSETRON 4 MG ORAL DISINTEGRATING TAB PO ONE (21:15)
--- NOTE | 2020-06-06 21:39 | REP ---
INDICATION: r/o obstruction COMPARISON: None. TECHNIQUE: Upright view of the chest with supine and upright views of the abdomen and pelvis. FINDINGS: Frontal upright view of the chest demonstrates no acute cardiopulmonary process or free air below the diaphragm to suspect pneumoperitoneum. Supine and upright views of the abdomen and pelvis demonstrate nonspecific bowel gas pattern without obstruction or perforation. No organomegaly. No abnormal calcifications. Incidental phleboliths noted in the pelvis. Skeletal structures normal for age. IMPRESSION: Nonspecific bowel gas pattern. <Electronically signed by Tj More > 06/06/20 [id number]
[2020-06-06] MEDS ORDERED: ZOFR4TAB16 PO (21:57)
== END 2020-06-06 22:37 | disposition home or self-care (01) ==
LOC: M ED 20:23
DX: R11.2 Nausea with vomiting, unspecified (principal); K21.9 Gastro-esophageal reflux disease without esophagitis; Z91.018 Allergy to other foods; Z88.0 Allergy status to penicillin; Z88.2 Allergy status to sulfonamides; Z91.040 Latex allergy status; Z88.8 Allergy status to other drugs, medicaments and biological substances; Z79.899 Other long term (current) drug therapy
CPT/HCPCS: 74021; 99283; Q0162

== ENCOUNTER 2020-06-09 16:10 | Emergency (ER) | payer OTHER ==
[~2020-06-09] VITALS: Ht 167.6 cm; Wt 157.5 kg
[2020-06-09 16:10] VITALS: BP 129/59
[2020-06-09] MEDS ORDERED: PRAZ5CAP (16:20)
[2020-06-09] MEDS ORDERED: OMEP-218 (16:20)
[2020-06-09] MEDS ORDERED: METR-265 (16:20)
[2020-06-09] MEDS ORDERED: PRIL20TA2 (16:20)
[2020-06-09] MEDS ORDERED: ONDA-83 (16:20)
[2020-06-09] MEDS ORDERED: NITR100C2 (16:20)
[2020-06-09] MEDS ORDERED: metroNIDAZOLE (FLAGYL) 500MG TABLET PO ONE (18:00)
[2020-06-09] MEDS ORDERED: NITROFURANTOIN (MACROBID) 100 MG CAP PO ONE (18:00)
[2020-06-10] MEDS ORDERED: METR-265 PO (21:36)
[2020-06-10] MEDS ORDERED: MACR100C43 PO (21:36)
[2020-06-10] MEDS ORDERED: BENZ200C70 PO (21:36)
[2020-06-10] MEDS ORDERED: OMEP1CAP73 PO (21:36)
[2020-06-10] MEDS ORDERED: ONDA-83 PO (21:36)
== END 2020-06-09 18:28 | disposition home or self-care (01) ==
LOC: M ED 16:10
DX: N39.0 Urinary tract infection, site not specified (principal); K52.9 Noninfective gastroenteritis and colitis, unspecified; H61.23 Impacted cerumen, bilateral; E66.9 Obesity, unspecified; Z68.43 Body mass index [BMI] 50.0-59.9, adult; F60.3 Borderline personality disorder; F31.9 Bipolar disorder, unspecified; F41.9 Anxiety disorder, unspecified; K21.9 Gastro-esophageal reflux disease without esophagitis; I10 Essential (primary) hypertension; E78.5 Hyperlipidemia, unspecified; G43.909 Migraine, unspecified, not intractable, without status migrainosus; J45.909 Unspecified asthma, uncomplicated; Z88.0 Allergy status to penicillin; Z88.2 Allergy status to sulfonamides; Z91.018 Allergy to other foods; Z91.040 Latex allergy status; Z88.8 Allergy status to other drugs, medicaments and biological substances; Z79.899 Other long term (current) drug therapy

== ENCOUNTER 2020-06-10 11:09 | Emergency (ER) | payer OTHER ==
[~2020-06-10 11:09] MED LIST changes: +METR-265; +NITR100C2; +OMEP-218; +ONDA-83; +PRAZ5CAP; +PRIL20TA2
[2020-06-10 13:12] LABS: HEMOGLOBIN 10.2 g/dl (12.0-15.5); MEAN CORPUSCULAR HEMOGLOBIN 25.4 pg (27.0-33.0); MEAN CORPUSCULAR HGB CONC 27.6 g/dl (32.0-36.5); PLATELET COUNT, AUTOMATED 190 10^3/uL (150-450); RED BLOOD COUNT 4.02 10^6/uL (4.00-5.40); WHITE BLOOD COUNT 5.2 10^3/uL (4.0-10.0)
[2020-06-10 13:21] LABS: AMPHETAMINES LEVEL URINE NEGATIVE (NEGATIVE); BARBITURATES URINE NEGATIVE (NEGATIVE); BENZODIAZEPINES URINE NEGATIVE (NEGATIVE); CANNABINOIDS URINE NEGATIVE (NEGATIVE); COCAINE METABOLITE URINE NEGATIVE (NEGATIVE); METHADONE URINE NEGATIVE (NEGATIVE); OPIATES URINE NEGATIVE (NEGATIVE); PHENCYCLIDINE URINE NEGATIVE (NEGATIVE)
[2020-06-10 13:35] LABS: HCG, SERUM QUALITATIVE NEGATIVE (NEGATIVE)
[2020-06-10 13:44] LABS: ACETAMINOPHEN LEVEL < 2.0 UG/ML (10.0-30.0); ALBUMIN 3.6 GM/DL (3.2-5.2); ALT/SGPT 24 U/L (12-78); BILIRUBIN,DIRECT < 0.1 MG/DL (0.0-0.2); BILIRUBIN,TOTAL 0.1 MG/DL (0.2-1.0); BLOOD UREA NITROGEN 11 MG/DL (7-18); CALCIUM LEVEL 8.3 MG/DL (8.5-10.1); CARBON DIOXIDE LEVEL 29 MEQ/L (21-32); CHLORIDE LEVEL 110 MEQ/L (98-107); CREATININE FOR GFR 0.66 MG/DL (0.55-1.30); ETHYL ALCOHOL (ETHANOL) < 0.003 % (0.000-0.010); GLOMERULAR FILTRATION RATE > 60.0 (>60); GLUCOSE, FASTING 90 MG/DL (70-100); POTASSIUM SERUM 4.8 MEQ/L (3.5-5.1); SALICYLATE LEVEL < 1.7 MG/DL (5.0-30.0); SODIUM LEVEL 142 MEQ/L (136-145); TOTAL PROTEIN 6.6 GM/DL (6.4-8.2)
--- NOTE | 2020-06-10 14:05 | REP ---
INDICATION: trauma COMPARISON: 10/30/2018. TECHNIQUE: Four views obtained. FINDINGS: No acute fracture or dislocation is seen. There is mild soft tissue swelling. The ankle mortise is anatomic. There is mild posterior calcaneal spurring. IMPRESSION: No fracture or dislocation. <Electronically signed by Tapan Hicks > 06/10/20 [id number]
--- NOTE | 2020-06-10 14:08 | REP ---
INDICATION: trauma COMPARISON: 10/30/2018. TECHNIQUE: Four views obtained. FINDINGS: There is no acute fracture, dislocation or intrinsic bone disease. There is mild posterior calcaneal spurring. IMPRESSION: No fracture or dislocation. <Electronically signed by Tapan Hicks > 06/10/20 [id number]
[2020-06-10] MEDS ORDERED: ACETAMINOPHEN 325 MG TAB PO ONE (14:15)
[2020-06-10] MEDS ORDERED: OMEP1CAP73 PO (21:36)
[2020-06-10] MEDS ORDERED: MACR100C43 PO (21:36)
[2020-06-10] MEDS ORDERED: METR-265 PO (21:36)
[2020-06-10] MEDS ORDERED: ONDA-83 PO (21:36)
[2020-06-10] MEDS ORDERED: BENZ200C70 PO (21:36)
[2020-06-10] MEDS ORDERED: NITROFURANTOIN (MACROBID) 100 MG CAP PO ONE (22:30)
[2020-06-10] MEDS ORDERED: metroNIDAZOLE (FLAGYL) 500MG TABLET PO ONE (22:30)
[2020-06-10] MEDS ORDERED: FAMOTIDINE 20 MG TAB PO ONE (22:30)
[2020-06-10 22:40] VITALS: BP 132/74
[2020-06-10] MEDS ORDERED: PRAZOSIN 1 MG CAP PO ONE (22:45)
--- NOTE | 2020-06-12 07:55 | ECGEPIP ---
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
== END 2020-06-10 23:45 | disposition home or self-care (01) ==
LOC: M ED 11:09
DX: R45.851 Suicidal ideations (principal); F32.9 Major depressive disorder, single episode, unspecified; M25.571 Pain in right ankle and joints of right foot; I10 Essential (primary) hypertension; E78.9 Disorder of lipoprotein metabolism, unspecified; F17.200 Nicotine dependence, unspecified, uncomplicated; Z91.018 Allergy to other foods; Z91.040 Latex allergy status; Z88.0 Allergy status to penicillin; Z88.8 Allergy status to other drugs, medicaments and biological substances; Z88.2 Allergy status to sulfonamides; Z79.899 Other long term (current) drug therapy; Z79.2 Long term (current) use of antibiotics
CPT/HCPCS: 36415; 73610; 73630; 80048; 80076; 80307; 84443; 84703; 85027; 93005; 99284; G0480

== ENCOUNTER 2020-06-11 13:16 | Inpatient (IN) | payer OTHER ==
[~2020-06-11] VITALS: Ht 167.6 cm; Wt 159.5 kg
[~2020-06-11 13:16] MED LIST changes: +METR-265 PO; +OMEP1CAP73 PO
[2020-06-11 15:01] LABS: AMPHETAMINES LEVEL URINE NEGATIVE (NEGATIVE); BARBITURATES URINE NEGATIVE (NEGATIVE); BENZODIAZEPINES URINE NEGATIVE (NEGATIVE); CANNABINOIDS URINE NEGATIVE (NEGATIVE); COCAINE METABOLITE URINE NEGATIVE (NEGATIVE); METHADONE URINE NEGATIVE (NEGATIVE); OPIATES URINE NEGATIVE (NEGATIVE); PHENCYCLIDINE URINE NEGATIVE (NEGATIVE)
[2020-06-11] MEDS ORDERED: BENZONATATE 100 MG CAP PO PRN (17:00)
[2020-06-11] MEDS ORDERED: MOM 30ML SUSPENSION UDC PO PRN (17:00)
[2020-06-11] MEDS ORDERED: MAALOX 30 ML SUSP *UDC PO PRN (17:00)
[2020-06-11] MEDS ORDERED: ONDANSETRON 4 MG TAB PO PRN (17:00)
[2020-06-11 17:44] VITALS: BP 126/99
[2020-06-11] MEDS: ACETAMINOPHEN 325 MG TAB PO PRN (20:25)
[2020-06-11] MEDS: NITROFURANTOIN (MACROBID) 100 MG CAP PO SCH (20:26)
[2020-06-11] MEDS: FAMOTIDINE 20 MG TAB PO SCH (20:26)
[2020-06-11] MEDS: metroNIDAZOLE (FLAGYL) 500MG TABLET PO SCH (20:26)
[2020-06-11] MEDS: traZODone 50 MG TAB PO PRN (20:26)
[2020-06-12] MEDS: metroNIDAZOLE (FLAGYL) 500MG TABLET PO SCH ×3 (06:19→22:31)
[2020-06-12] MEDS: IBUPROFEN 800 MG TAB PO PRN ×2 (06:44→16:00)
[2020-06-12 06:56] VITALS: BP 155/64
[2020-06-12] MEDS: FAMOTIDINE 20 MG TAB PO SCH ×2 (08:24→20:12)
[2020-06-12] MEDS: NITROFURANTOIN (MACROBID) 100 MG CAP PO SCH ×2 (08:24→20:12)
[2020-06-12] MEDS: OMEPRAZOLE 20 MG CAP PO SCH (08:24)
[2020-06-12] MEDS: ARIPiprazole 15 MG TAB (AbiLIFY) PO SCH (08:25)
[2020-06-12] MEDS: FLUoxetine 20 MG CAP PO SCH (08:25)
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
--- NOTE | 2020-06-12 12:32 | HPEPDOC ---
[facility] Medical History & Physical Date of Admission Jun 12, 2020 Date of Service: Jun 12, 2020 Attending Physician: RADHA ADAMES MD History and Physical CHIEF COMPLAINT: suicidal ideation, dysuria HISTORY OF PRESENT ILLNESS: 20 yo F admitted to [facility] for suicidal ideation. [facility] pitalist service was consulted for medical comanagement. She reports having been treated with UTI 3 days ago, and she is completing a course of macrobic and flagyl, likely for BV vs trichomoniasis. She continues to report dysuria and R flank pain, along with reduced PO intake and vomiting. Further, she has a cast on R leg which was placed at [facility] per patient, despite lack of fractures on imaging. Discussed with primary psychiatric service, patient has frequent admissions to [facility] and suffers from numerous somatic symptoms, as well as from pseudologia fantastica. PAST MEDICAL HISTORY: Depression HLD Obesity GERD PCOS PAST SURGICAL HISTORY: Appendectomy Tonsillectomy Ovarian cyst removal SOCIAL HISTORY: Active smoker Social alcohol use marijuana FAMILY HISTORY: patient reports no significant fmhx ALLERGIES: Please see below. REVIEW OF SYSTEMS: CONSTITUTIONAL: patient denies fevers, chills HEENT: patient denies blurred vision, loss of vision, headache,. CARDIOVASCULAR: patient denies chest pain, palpitations. RESPIRATORY: patient denies shortness of breath, cough, hemoptysis. GASTROINTESTINAL: Reports nausea, vomiting. GENITOURINARY: Reports dysuria, right flank pain SKIN: patient denies rashes. MUSCULOSKELETAL: patient denies joint pain, neck pain. NEUROLOGICAL: patient denies focal weakness, numbness, seizures. PSYCHIATRIC: patient denies SI/HI. ENDOCRINE: patient denies polyuria, heat intolerance, cold intolerance. HEMATOLOGIC/LYMPHATIC: patient denies easy bruising. HOME MEDICATIONS: Please see below. PHYSICAL EXAMINATION: VITAL SIGNS: please see below General: NAD, comfortable HEENT: PERRLA, EOMI, sclerae clear Neck: supple, normal ROM, no JVD Respiratory: lungs CTAB, no wheeze, no rales, no crackles CVS: RRR, normal S1, S2, no murmurs Abdo: soft, no masses, no hepatosplenomegaly, BS+, no rebound tenderness, no abdominal pain Back: Extreme response to right flank percussion Extremities: no edema, pulses 2+ MSK: no joint deformities, normal ROM Neuro: no focal neuro deficits, moving all 4 extremities, CN2-12 intact. Strength 5/5 in all 4 extremities. No nystagmus. Psych: calm, cooperative, AAO x 3 LABORATORY DATA: See below. MICROBIOLOGY: Please see below. ASSESSMENT: 20 yo F with a hx of MDD, obesity, PCOS, HLD admitted to [facility] for SI/HI. Hospitalist consulted for medical co-management. . PLAN: #SI/HI: per psychiatry #dysuria: suspect UTI possible BV vs trichimoniasis. Completing course of macrobid and flagyl from outside clinic. Check UA. CBC. Patient had extreme response to percussion of R flank. Will check WBC. #vomiting: patient reports poor PO intake however per [facility] staff, has had great appetite and eats 100% of trays. #obesity: complicating care, advised lifestyle change #R ankle/leg injury: cast. PT eval. #HTN: bp well controlled w/o meds #GERD: famotidine #HDL: PCP f/u Thank you for the consult. Please re-consult as needed. Vital Signs Vital Signs Date Time Temp Pulse Resp B/P (MAP) Pulse Ox O2 Delivery O2 Flow Rate FiO2 06/12/20 06:56 98.9 73 15 155/64 (94) 97 Room Air Laboratory Data Labs 24H Laboratory Tests 2 06/11/20 14:22: Urine Opiates Screen NEGATIVE, Urine Methadone Screen NEGATIVE, Urine Barbitura cynthia Screen NEGATIVE, Urine Phencyclidine Screen NEGATIVE, Urine Amphetamines Screen NEGATIVE, Urine Benzodiazepines Screen NEGATIVE, Urine Cocaine Metabolite Screen NEGATIVE, Urine Cannabinoids Screen NEGATIVE Home Medications Scheduled Aripiprazole (Aripiprazole) 15 Mg Tablet, 15 MG PO DAILY Famotidine (Famotidine) 20 Mg Tablet, 20 MG PO BID Fluoxetine Hcl (Fluoxetine HCl) 20 Mg Capsule, 20 MG PO DAILY Metronidazole (Metronidazole) 500 Mg Tablet, 500 MG PO Q8H STARTED 06/09/2020 Nitrofurantoin Monohyd/M-Cryst (Macrobid 100 mg Capsule) 100 Mg Capsule, 100 MG PO BID STARTED ON 06/09/2020 Omeprazole (Omeprazole) 20 Mg Capsule.dr, 20 MG PO DAILY Prazosin HCl (Prazosin HCl) 5 Mg Capsule, 5 MG PO QHS Scheduled PRN Acetaminophen (Acetaminophen) 325 Mg Tablet, 325 MG PO Q4H PRN for PAIN Benzonatate (Benzonatate) 200 Mg Capsule, 200 MG PO TID PRN for COUGH Ibuprofen (Ibuprofen) 800 Mg Tablet, 800 MG PO Q8H PRN for PAIN Ondansetron HCl (Ondansetron HCl) 4 Mg Tablet, 4 MG PO Q6H PRN for NAUSEA OR VOMITING Allergies Coded Allergies: Mushroom (Verified Allergy, Unknown, 04/05/20) Penicillins (Verified Allergy, Unknown, 04/05/20) Sulfa (Sulfonamide Antibiotics) (Verified Allergy, Unknown, 04/05/20) TURKEY (Verified Allergy, Unknown, 04/05/20) emtricitabine (Verified Allergy, Unknown, 04/05/20) haloperidol (Verified Allergy, Unknown, GI BLEED, 04/14/20) latex (Verified Allergy, Unknown, 04/05/20) raltegravir (Verified Allergy, Unknown, 04/05/20) sulfamethoxazole (Verified Allergy, Unknown, 04/05/20) tomato (Verified Allergy, Unknown, 04/05/20) trimethoprim (Verified Allergy, Unknown, 04/05/20) A-FIB/CHADSVASC A-FIB History Current/History of A-Fib/PAF?: No Current PO Anticoag Therapy: No RADHA ADAMES MD Jun 12, 2020 12:32
[2020-06-12] MEDS: ACETAMINOPHEN 325 MG TAB PO PRN (13:42)
[2020-06-12 16:41] VITALS: BP 144/70
[2020-06-12] MEDS ORDERED: hydrOXYzine 25 MG TAB PO PRN (16:45)
[2020-06-12] MEDS ORDERED: CEPACOL LOZENGE PO PRN (18:00)
[2020-06-12] MEDS: traZODone 50 MG TAB PO PRN (20:12)
[2020-06-13] MEDS: metroNIDAZOLE (FLAGYL) 500MG TABLET PO SCH (06:05)
[2020-06-13 06:48] VITALS: BP 139/72
[2020-06-13 07:28] LABS: BASO % 0.4 % (0.0-1.0); EOS # 0.2 10^3/uL (0.0-0.5); EOS % 3.2 % (0.0-3.0); HEMATOCRIT 36.1 % (36.0-47.0); HEMOGLOBIN 10.5 g/dl (12.0-15.5); LYMPH # 1.5 10^3/uL (1.5-5.0); LYMPH % 28.8 % (24.0-44.0); MEAN CORPUSCULAR HEMOGLOBIN 25.4 pg (27.0-33.0); MEAN CORPUSCULAR HGB CONC 29.1 g/dl (32.0-36.5); MEAN CORPUSCULAR VOLUME 87.2 fl (80.0-96.0); MONO # 0.5 10^3/uL (0.0-0.8); MONO % 10.1 % (0.0-5.0); NEUTROPHILS # 2.9 10^3/uL (1.5-8.5); NEUTROPHILS % 57.1 % (36.0-66.0); PLATELET COUNT, AUTOMATED 168 10^3/uL (150-450); RED BLOOD COUNT 4.14 10^6/uL (4.00-5.40)
[2020-06-13 07:59] LABS: ALBUMIN 3.2 GM/DL (3.2-5.2); ALT/SGPT 23 U/L (12-78); BILIRUBIN,TOTAL 0.2 MG/DL (0.2-1.0); BLOOD UREA NITROGEN 15 MG/DL (7-18); CALCIUM LEVEL 8.6 MG/DL (8.5-10.1); CARBON DIOXIDE LEVEL 27 MEQ/L (21-32); CHLORIDE LEVEL 110 MEQ/L (98-107); CREATININE FOR GFR 0.74 MG/DL (0.55-1.30); GLOMERULAR FILTRATION RATE > 60.0 (>60); GLUCOSE, FASTING 94 MG/DL (70-100); POTASSIUM SERUM 4.1 MEQ/L (3.5-5.1); SODIUM LEVEL 143 MEQ/L (136-145); TOTAL PROTEIN 6.1 GM/DL (6.4-8.2)
[2020-06-13] MEDS: FAMOTIDINE 20 MG TAB PO SCH (09:19)
[2020-06-13] MEDS: NITROFURANTOIN (MACROBID) 100 MG CAP PO SCH (09:19)
[2020-06-13] MEDS: ARIPiprazole 15 MG TAB (AbiLIFY) PO SCH (09:19)
[2020-06-13] MEDS: FLUoxetine 20 MG CAP PO SCH (09:19)
[2020-06-13] MEDS: OMEPRAZOLE 20 MG CAP PO SCH (09:19)
[2020-06-13] MEDS: IBUPROFEN 800 MG TAB PO PRN (09:20)
--- NOTE | 2020-06-13 11:02 | MHDSPDOC ---
[facility] Discharge Summary Discharge Summary DATE OF ADMISSION: Jun 11, 2020 at 16:49 DATE OF DISCHARGE:Jun 13, 2020 at 13:00 DISCHARGE DIAGNOSES: Borderline personality disorder adjustment disorder CONSULTANTS INVOLVED:[ None (basic hospitalist screening)] REASON FOR ADMISSION & TREATMENT AND PROGRESS ON THE UNIT : The patient was admitted to the inpatient mental health unit, resumed on previous home medications with no alterations. She subsequently redacted her suicidal ideation quite quickly after being started on low dose hydroxyzine. It appeared that her presentation is primarily due to adjustment problem, as well as poor frustration tolerance. She was triaged for discharge at her request DISCHARGE ASSESSMENT[improved] Legal status considerations: The patient at the time of discharge did not meet criteria for involuntary admission/extension due to having a baseline mental status exam, baseline insight into the situation, They are engaged in the discharge process, as well as being friendly and amenable in behavioral control and havent been engaging in any observed concerning behavior or ideation recently. They decline voluntary extension/admission at this time and must be discharged in good saniya, as Im unable to make a case for holding the patient against their will. They may have historical risk factors of admissions and other interactions with psychiatry however, those are not modifiable from a clinical perspective. The patient will need to be discharged in good saniya. MENTAL STATUS EXAMINATION ON DISCHARGE: General: [Well dressed with good hygiene] Speech: [Spontaneous and fluid] Thought processes: [Linear and logical] Thought content: [Future orientated] Abstract reasoning, and computation: [Intact] Description of associations: [Intact] Description of abnormal or psychotic thoughts:[Denies any suicidal or homicidal ideation. Denies any auditory or visual hallucinations. Does not appear to be responding to internal stimuli. Does not appear to be endorsing any bizarre or paranoid ideation.] Judgment: baseline Insight:, baseline Orientation: [Alert and orientated 3] Recent and remote memory: [Intact] Attention span and concentration: [Intact] Fund of knowledge: [Adequate] Mood: ["okay"] Affect: [Euthymic with a full range] PLAN/FOLLOWUP ARRANGEMENTS: Follow up appointments made (PCP and MH in 5 days of D/C date) and safety plan completed. Safety Planning aspects completed prior to discharge [RN reviewed crisis hotline information and other aspects to empower patient to access care in interim before next appointment.] The amount of time spent in the coordination of care for this patient was approximately 30 minutes. Vital Signs/I&Os Vital Signs Date Time Temp Pulse Resp B/P (MAP) Pulse Ox O2 Delivery O2 Flow Rate FiO2 06/13/20 06:48 99.0 89 14 139/72 (94) 97 Room Air Laboratory Data Labs 24H Laboratory Tests 2 06/13/20 07:02: Immature Granulocyte % (Auto) 0.4, Neutrophils (%) (Auto) 57.1, Lymphocytes (%) (Auto) 28.8, Monocytes (%) (Auto) 10.1H, Eosinophils (%) (Auto) 3.2H, Basophils (%) (Auto) 0.4, Neutrophils # (Auto) 2.9, Lymphocytes # (Auto) 1.5, Monocytes # (Auto) 0.5, Eosinophils # (Auto) 0.2, Basophils # (Auto) 0.0, Nucleated Red Blood Cells % (auto) 0.0, Anion Gap 6L, Glomerular Filtration Rate > 60.0, Calcium Level 8.6, Total Bilirubin 0.2#, Aspartate Amino Transf (AST/SGOT) 16, Alanine Aminotransferase (ALT/SGPT) 23, Alkaline Phosphatase 72, Total Protein 6.1L, Albumin 3.2, Albumin/Globulin Ratio 1.1L 06/13/20 09:20: Urine Color YELLOW, Urine Appearance HAZY, Urine pH 5.0, Urine Specific [place] 1.020, Urine Protein NEGATIVE, Urine Glucose (UA) NEGATIVE, Urine Ketones NEGATIVE, Urine Blood NEGATIVE, Urine Nitrite NEGATIVE, Urine Bilirubin NEGATIVE, Urine Urobilinogen 0.2, Urine Leukocyte Esterase 2+H, Urine WBC (Auto) 3, Urine RBC (Auto) 1, Urine Hyaline Casts (Auto) 0, Urine Bacteria (Auto) 1+H, Urine Squamous Epithelial Cells 3, Urine Mucus (Auto) SMALL, Urine Sperm (Auto) CBC/BMP Laboratory Tests 06/13/20 07:02 Microbiology Microbiology 06/13/20 Urine Culture, Received Pending Medications Scheduled Aripiprazole (Aripiprazole) 15 Mg Tablet, 15 MG PO DAILY, (Reported) Ciprofloxacin HCl (Ciprofloxacin HCl) 500 Mg Tablet, 1 TAB PO BID for UTI for 7 Days, #14 Famotidine (Famotidine) 20 Mg Tablet, 20 MG PO BID, (Reported) Fluoxetine Hcl (Fluoxetine HCl) 20 Mg Capsule, 20 MG PO DAILY, (Reported) Metronidazole (Metronidazole) 500 Mg Tablet, 500 MG PO Q8H for 7 Days, (Repor levon) STARTED 06/09/2020 Nitrofurantoin Monohyd/M-Cryst (Nitrofurantoin Perkins-Mcr 100 mg) 100 Mg Capsule, 1 CAP PO BID, (Reported) Omeprazole (Omeprazole) 20 Mg Capsule.dr, 20 MG PO DAILY, (Reported) Omeprazole Magnesium (Prilosec Otc) 20 Mg Tablet.dr, 1 TAB PO DAILY, (Reported) Prazosin HCl (Prazosin HCl) 5 Mg Capsule, 5 MG PO QHS, (Reported) Scheduled PRN Acetaminophen (Acetaminophen) 325 Mg Tablet, 325 MG PO Q4H PRN for PAIN, (Reported) Benzonatate (Benzonatate) 200 Mg Capsule, 200 MG PO TID PRN for COUGH, (Reported) Ibuprofen (Ibuprofen) 800 Mg Tablet, 800 MG PO Q8H PRN for PAIN, (Reported) Ondansetron HCl (Ondansetron HCl) 4 Mg Tablet, 4 MG PO Q6H PRN for NAUSEA OR VOMITING, (Reported) Allergies Coded Allergies: Mushroom (Verified Allergy, Unknown, 06/13/20) Penicillins (Verified Allergy, Unknown, 06/13/20) Sulfa (Sulfonamide Antibiotics) (Verified Allergy, Unknown, 06/13/20) TURKEY (Verified Allergy, Unknown, 06/13/20) emtricitabine (Verified Allergy, Unknown, 06/13/20) latex (Verified Allergy, Unknown, 06/13/20) raltegravir (Verified Allergy, Unknown, 06/13/20) sulfamethoxazole (Verified Allergy, Unknown, 06/13/20) tomato (Verified Allergy, Unknown, 06/13/20) trimethoprim (Verified Allergy, Unknown, 06/13/20) haloperidol (Unverified Adverse Reaction, Intermediate, GI BLEED, 06/13/20) PHYLLIS RIZZO DO Jun 13, 2020 11:02
[2020-06-13] MEDS ORDERED: HYDR-3363 PO (12:35)
[2020-06-13] MEDS ORDERED: CIPR500T3 PO (12:50)
[2020-06-13] MEDS ORDERED: PRIL20TA2 PO (16:10)
[2020-06-13] MEDS ORDERED: NITR100C2 PO (16:10)
== END 2020-06-13 13:00 | disposition home or self-care (01) | DRG 752 ==
LOC: M ED 13:16 → M ED INP 16:49 → M PSY 17:43
PROVIDERS: ADMIT Psychiatry & Neurology Addiction Medicine; ATTEND Psychiatry & Neurology Addiction Medicine
DX: F60.3 Borderline personality disorder (principal); F43.20 Adjustment disorder, unspecified; F60.2 Antisocial personality disorder; E66.9 Obesity, unspecified; K21.9 Gastro-esophageal reflux disease without esophagitis; E28.2 Polycystic ovarian syndrome; F17.200 Nicotine dependence, unspecified, uncomplicated; Z79.899 Other long term (current) drug therapy; Z88.0 Allergy status to penicillin; Z88.2 Allergy status to sulfonamides; Z91.040 Latex allergy status; Z88.8 Allergy status to other drugs, medicaments and biological substances; Z91.018 Allergy to other foods

== ENCOUNTER 2020-06-13 15:43 | Emergency (ER) | payer OTHER ==
[~2020-06-13] VITALS: Ht 167.6 cm; Wt 159.6 kg
[~2020-06-13 15:43] MED LIST changes: +CIPR500T3 PO; +HYDR-3363 PO
[2020-06-13] MEDS ORDERED: PRIL20TA2 PO (16:10)
[2020-06-13] MEDS ORDERED: NITR100C2 PO (16:10)
[2020-06-13 16:49] LABS: APPEARANCE, URINE HAZY (CLEAR); BACTERIA, URINE AUTO 1+ (NEGATIVE); BILIRUBIN, URINE AUTO NEGATIVE (NEGATIVE); BLOOD, URINE BLOOD NEGATIVE (NEGATIVE); COLOR, URINE YELLOW (YELLOW); GLUCOSE, URINE (UA) AUTO NEGATIVE (NEGATIVE); KETONE, URINE AUTO NEGATIVE (NEGATIVE); LEUKOCYTE ESTERASE, URINE AUTO 3+ (NEGATIVE); MUCUS, URINE SMALL (NEGATIVE); NITRITE, URINE AUTO NEGATIVE (NEGATIVE); PROTEIN, URINE AUTO NEGATIVE (NEGATIVE); RBC, URINE AUTO 4 /HPF (0-3); SPECIFIC GRAVITY URINE AUTO 1.016 (1.002-1.035); SQUAMOUS EPITHELIAL CELL UR AU 7 /HPF (0-6); UROBILINOGEN, URINE AUTO 0.2 mg/dL (0.0-2.0); WBC, URINE AUTO 7 /HPF (0-3)
[2020-06-13 17:16] VITALS: BP 129/91
== END 2020-06-13 17:35 | disposition home or self-care (01) ==
LOC: M ED 15:43
DX: N39.0 Urinary tract infection, site not specified (principal); R11.0 Nausea; I10 Essential (primary) hypertension; K21.9 Gastro-esophageal reflux disease without esophagitis; Z79.899 Other long term (current) drug therapy

== ENCOUNTER 2020-06-13 20:16 | Emergency (ER) | payer OTHER ==
[~2020-06-13] VITALS: Ht 167.6 cm; Wt 159.2 kg
[~2020-06-13 20:16] MED LIST changes: +PRIL20TA2 PO
--- NOTE | 2020-06-13 21:05 | REPVR ---
PROCEDURE INFORMATION: Exam: XR Chest, 2 Views Exam date and time: 06/13/2020 8:52 PM Age: 20 years old Clinical indication: Other: Overdose TECHNIQUE: Imaging protocol: XR of the chest Views: 2 views. COMPARISON: CR Abdomen,Flat Upright,PA CHEST 06/06/2020 9:09 PM FINDINGS: Lungs: There is decreased inflation of the lungs. There are no interval infiltrates. Pleural space: Unremarkable. No pleural effusion. No pneumothorax. Heart/Mediastinum: The heart and mediastinum are unchanged. Bones/joints: Unremarkable. Soft tissues: There are generous overlying soft tissues. IMPRESSION: Negative essentially stable poor inspiratory chest since 06/06/2020. Electronically signed by: Champ Beauchamp On 06/13/2020 21:05:06 PM
[2020-06-13 21:08] LABS: HEMOGLOBIN 10.6 g/dl (12.0-15.5); MEAN CORPUSCULAR HEMOGLOBIN 25.1 pg (27.0-33.0); MEAN CORPUSCULAR HGB CONC 29.4 g/dl (32.0-36.5); MEAN CORPUSCULAR VOLUME 85.1 fl (80.0-96.0); PLATELET COUNT, AUTOMATED 179 10^3/uL (150-450); RED BLOOD COUNT 4.23 10^6/uL (4.00-5.40); WHITE BLOOD COUNT 6.6 10^3/uL (4.0-10.0)
[2020-06-13 21:11] LABS: AMPHETAMINES LEVEL URINE NEGATIVE (NEGATIVE); BARBITURATES URINE NEGATIVE (NEGATIVE); BENZODIAZEPINES URINE NEGATIVE (NEGATIVE); CANNABINOIDS URINE NEGATIVE (NEGATIVE); COCAINE METABOLITE URINE NEGATIVE (NEGATIVE); METHADONE URINE NEGATIVE (NEGATIVE); OPIATES URINE NEGATIVE (NEGATIVE); PHENCYCLIDINE URINE NEGATIVE (NEGATIVE)
[2020-06-13 21:37] LABS: ACETAMINOPHEN LEVEL < 2.0 UG/ML (10.0-30.0); BLOOD UREA NITROGEN 10 MG/DL (7-18); CALCIUM LEVEL 8.4 MG/DL (8.5-10.1); CARBON DIOXIDE LEVEL 25 MEQ/L (21-32); CHLORIDE LEVEL 109 MEQ/L (98-107); CREATININE FOR GFR 0.88 MG/DL (0.55-1.30); ETHYL ALCOHOL (ETHANOL) < 0.003 % (0.000-0.010); GLOMERULAR FILTRATION RATE > 60.0 (>60); GLUCOSE, FASTING 116 MG/DL (70-100); POTASSIUM SERUM 4.1 MEQ/L (3.5-5.1); SALICYLATE LEVEL < 1.7 MG/DL (5.0-30.0); SODIUM LEVEL 142 MEQ/L (136-145)
[2020-06-13] MEDS ORDERED: CALCIUM CARBONATE 500 MG CHEW U/D PO ONE (22:15)
[2020-06-14 03:01] VITALS: BP 107/49
--- NOTE | 2020-06-14 07:57 | ECGEPIP ---
[facility] - ED Test Date: 2020-06-13 Pat Name: RAMYA MCCARTNEY Department: Room: - Gender: Female [employer]: LR : 2000 Requested By: JIMI MARTINEZ Order Number: [id number] Reading MD: Jimi Meyer Measurements Intervals Sisters Rate: 99 P: 62 NC: 92 QRS: 33 QRSD: 90 T: 40 QT: 323 QTc: 416 Interpretive Statements SINUS RHYTHM WITH SHORT NC INTERVAL POOR R WAVE PROGRESSION NSTTW ABNORMALITY(S) SIMILAR TO 06/10/20 Electronically Signed on 06-14-2020 7:57:30 EDT by Jimi Meyer
== END 2020-06-14 04:16 | disposition home or self-care (01) ==
LOC: M ED 20:16 → EDBD 20:16 → M ED 06-14 04:16
DX: T44.6X2A Poisoning by alpha-adrenoreceptor antagonists, intentional self-harm, initial encounter (principal); R00.0 Tachycardia, unspecified; F43.10 Post-traumatic stress disorder, unspecified
CPT/HCPCS: 36415; 71046; 80048; 80307; 85027; 93005; 93041; 99285; G0480

== ENCOUNTER 2020-06-15 19:48 | Emergency (ER) | payer OTHER ==
[~2020-06-15] VITALS: Ht 167.6 cm; Wt 159.2 kg
[2020-06-15 22:02] LABS: AMPHETAMINES LEVEL URINE NEGATIVE (NEGATIVE); BARBITURATES URINE NEGATIVE (NEGATIVE); BENZODIAZEPINES URINE NEGATIVE (NEGATIVE); CANNABINOIDS URINE NEGATIVE (NEGATIVE); COCAINE METABOLITE URINE NEGATIVE (NEGATIVE); METHADONE URINE NEGATIVE (NEGATIVE); OPIATES URINE NEGATIVE (NEGATIVE); PHENCYCLIDINE URINE NEGATIVE (NEGATIVE)
[2020-06-15 22:11] LABS: HEMATOCRIT 35.9 % (36.0-47.0); HEMOGLOBIN 10.5 g/dl (12.0-15.5); MEAN CORPUSCULAR HEMOGLOBIN 25.1 pg (27.0-33.0); MEAN CORPUSCULAR HGB CONC 29.2 g/dl (32.0-36.5); MEAN CORPUSCULAR VOLUME 85.9 fl (80.0-96.0); PLATELET COUNT, AUTOMATED 193 10^3/uL (150-450); RED BLOOD COUNT 4.18 10^6/uL (4.00-5.40); WHITE BLOOD COUNT 6.2 10^3/uL (4.0-10.0)
[2020-06-15 22:45] LABS: HCG, SERUM QUALITATIVE NEGATIVE (NEGATIVE)
[2020-06-15 22:49] LABS: ACETAMINOPHEN LEVEL < 2.0 UG/ML (10.0-30.0); ALBUMIN 3.8 GM/DL (3.2-5.2); ALT/SGPT 53 U/L (12-78); BILIRUBIN,DIRECT < 0.1 MG/DL (0.0-0.2); BILIRUBIN,TOTAL 0.3 MG/DL (0.2-1.0); BLOOD UREA NITROGEN 12 MG/DL (7-18); CALCIUM LEVEL 8.4 MG/DL (8.5-10.1); CARBON DIOXIDE LEVEL 27 MEQ/L (21-32); CHLORIDE LEVEL 111 MEQ/L (98-107); CREATININE FOR GFR 0.81 MG/DL (0.55-1.30); ETHYL ALCOHOL (ETHANOL) < 0.003 % (0.000-0.010); GLOMERULAR FILTRATION RATE > 60.0 (>60); GLUCOSE, FASTING 86 MG/DL (70-100); POTASSIUM SERUM 4.1 MEQ/L (3.5-5.1); SALICYLATE LEVEL < 1.7 MG/DL (5.0-30.0); SODIUM LEVEL 143 MEQ/L (136-145)
[2020-06-15 23:21] VITALS: BP 124/87
[2020-06-16] MEDS ORDERED: HYDR-3363 (09:20)
== END 2020-06-15 23:24 | disposition home or self-care (01) ==
LOC: M ED 19:48 → EDBD 19:48 → M ED 23:24
DX: Z76.5 Malingerer [conscious simulation] (principal); R45.851 Suicidal ideations; F60.3 Borderline personality disorder; F31.9 Bipolar disorder, unspecified; S92.901D Unspecified fracture of right foot, subsequent encounter for fracture with routine healing; X58.XXXD Exposure to other specified factors, subsequent encounter; F17.210 Nicotine dependence, cigarettes, uncomplicated; Z91.018 Allergy to other foods; Z88.0 Allergy status to penicillin; Z88.2 Allergy status to sulfonamides; Z88.8 Allergy status to other drugs, medicaments and biological substances; Z91.040 Latex allergy status; Z88.1 Allergy status to other antibiotic agents; Z79.899 Other long term (current) drug therapy; Z79.2 Long term (current) use of antibiotics
CPT/HCPCS: 36415; 80048; 80076; 80307; 84443; 84703; 85027; 99284; G0480

== ENCOUNTER 2020-06-16 09:11 | Emergency (ER) | payer OTHER ==
[~2020-06-16] VITALS: Ht 167.6 cm; Wt 155.2 kg
[2020-06-16] MEDS ORDERED: HYDR-3363 (09:20)
[2020-06-16] MEDS ORDERED: KETOROLAC TROMETHAMINE 10 MG TAB PO ONE (09:45)
[2020-06-16] MEDS ORDERED: ONDANSETRON 4 MG ORAL DISINTEGRATING TAB PO ONE (09:45)
[2020-06-16 10:04] LABS: BASO % 0.4 % (0.0-1.0); EOS # 0.1 10^3/uL (0.0-0.5); EOS % 1.5 % (0.0-3.0); HEMATOCRIT 38.9 % (36.0-47.0); HEMOGLOBIN 11.5 g/dl (12.0-15.5); LYMPH # 1.1 10^3/uL (1.5-5.0); LYMPH % 21.6 % (24.0-44.0); MEAN CORPUSCULAR HEMOGLOBIN 25.3 pg (27.0-33.0); MEAN CORPUSCULAR HGB CONC 29.6 g/dl (32.0-36.5); MEAN CORPUSCULAR VOLUME 85.7 fl (80.0-96.0); MONO # 0.4 10^3/uL (0.0-0.8); MONO % 7.4 % (0.0-5.0); NEUTROPHILS # 3.6 10^3/uL (1.5-8.5); NEUTROPHILS % 68.7 % (36.0-66.0); PLATELET COUNT, AUTOMATED 190 10^3/uL (150-450); RED BLOOD COUNT 4.54 10^6/uL (4.00-5.40); WHITE BLOOD COUNT 5.3 10^3/uL (4.0-10.0)
--- NOTE | 2020-06-16 10:59 | REP ---
INDICATION: lower abd pain. COMPARISON: 06/06/2020. TECHNIQUE: Supine and erect views of the abdomen and pelvis performed. FINDINGS: Supine and erect views of the abdomen and pelvis demonstrate no evidence of free intraperitoneal air and no evidence of obstruction. No dilated bowel loops are seen. There are multiple phleboliths in the pelvis. IMPRESSION: No free air or obstruction. <Electronically signed by Tapna Hicks > 06/16/20 [id number]
[2020-06-16 11:38] VITALS: BP 115/59
== END 2020-06-16 11:51 | disposition home or self-care (01) ==
LOC: M ED 09:11
DX: R10.9 Unspecified abdominal pain (principal); R11.2 Nausea with vomiting, unspecified; I10 Essential (primary) hypertension; E78.5 Hyperlipidemia, unspecified; G43.909 Migraine, unspecified, not intractable, without status migrainosus; J45.909 Unspecified asthma, uncomplicated; F31.9 Bipolar disorder, unspecified; F43.10 Post-traumatic stress disorder, unspecified; F17.200 Nicotine dependence, unspecified, uncomplicated; K21.9 Gastro-esophageal reflux disease without esophagitis; F41.9 Anxiety disorder, unspecified; Z88.0 Allergy status to penicillin; Z88.2 Allergy status to sulfonamides; Z88.8 Allergy status to other drugs, medicaments and biological substances; Z91.018 Allergy to other foods; Z91.040 Latex allergy status; Z79.899 Other long term (current) drug therapy
CPT/HCPCS: 36415; 74019; 80047; 81001; 84702; 85025; 87086; 99284; Q0162

== ENCOUNTER 2020-09-19 16:04 | Emergency (ER) | payer MEDICAID, OTHER ==
[~2020-09-19] VITALS: Ht 167.6 cm; Wt 92.3 kg
[~2020-09-19 16:04] MED LIST changes: -CLIN150C14 PO; +CLIN150C15 PO; +ESCI10TA16 PO; -ESCI10TA2 PO; +GABA-282 PO; -GABA-843 PO; +HYDR-3363; +IBUP1TAB5 PO; -IBUP40TA PO; +METH-1165 PO; -METH750T2 PO; +MIRT-62 PO; +NICO1DIS12 TD; -NICO21DI31 TD; -PHEN-593 PO; +PHEN1TAB73 PO; +QUET50TA3 PO; -QUET5TAB PO; -REME15TA PO
[2020-09-19 16:05] VITALS: BP 144/68
[2020-09-19] MEDS ORDERED: IBUPROFEN 600MG TAB PO ONE (17:30)
[2020-09-19] MEDS ORDERED: KETOROLAC TROMETHAMINE 10 MG TAB PO ONE (17:30)
== END 2020-09-19 18:28 | disposition home or self-care (01) ==
LOC: M ED 16:04
DX: M25.562 Pain in left knee (principal); M23.207 Derangement of unspecified meniscus due to old tear or injury, left knee; Z87.440 Personal history of urinary (tract) infections; Z87.09 Personal history of other diseases of the respiratory system; Z87.42 Personal history of other diseases of the female genital tract; G43.909 Migraine, unspecified, not intractable, without status migrainosus; F31.9 Bipolar disorder, unspecified; F43.10 Post-traumatic stress disorder, unspecified; F41.9 Anxiety disorder, unspecified; F60.3 Borderline personality disorder; F17.200 Nicotine dependence, unspecified, uncomplicated; F12.10 Cannabis abuse, uncomplicated; Z88.0 Allergy status to penicillin; Z88.2 Allergy status to sulfonamides; Z88.8 Allergy status to other drugs, medicaments and biological substances; Z91.018 Allergy to other foods; Z91.040 Latex allergy status

== ENCOUNTER 2020-11-30 04:55 | Inpatient (IN) | payer MEDICAID ==
[~2020-11-30] VITALS: Ht 167.6 cm; Wt 169.0 kg
[~2020-11-30 04:55] MED LIST changes: -ACET-908 PO; +ACET-910 PO
[2020-11-30 10:06] LABS: HEMATOCRIT 34.4 % (36.0-47.0); HEMOGLOBIN 9.8 g/dl (12.0-15.5); MEAN CORPUSCULAR HEMOGLOBIN 23.1 pg (27.0-33.0); MEAN CORPUSCULAR HGB CONC 28.5 g/dl (32.0-36.5); MEAN CORPUSCULAR VOLUME 81.1 fl (80.0-96.0); PLATELET COUNT, AUTOMATED 197 10^3/uL (150-450); RED BLOOD COUNT 4.24 10^6/uL (4.00-5.40); WHITE BLOOD COUNT 6.8 10^3/uL (4.0-10.0)
[2020-11-30 10:28] LABS: HCG, SERUM QUALITATIVE NEGATIVE (NEGATIVE)
[2020-11-30 10:41] LABS: ACETAMINOPHEN LEVEL < 2.0 UG/ML (10.0-30.0); ALBUMIN 3.5 GM/DL (3.2-5.2); ALT/SGPT 30 U/L (12-78); AMPHETAMINES LEVEL URINE NEGATIVE (NEGATIVE); BARBITURATES URINE NEGATIVE (NEGATIVE); BENZODIAZEPINES URINE NEGATIVE (NEGATIVE); BILIRUBIN,DIRECT < 0.1 MG/DL (0.0-0.2); BILIRUBIN,TOTAL 0.2 MG/DL (0.2-1.0); BLOOD UREA NITROGEN 15 MG/DL (7-18); CALCIUM LEVEL 8.9 MG/DL (8.5-10.1); CANNABINOIDS URINE NEGATIVE (NEGATIVE); CARBON DIOXIDE LEVEL 27 MEQ/L (21-32); CHLORIDE LEVEL 110 MEQ/L (98-107); COCAINE METABOLITE URINE NEGATIVE (NEGATIVE); CPK CREATINE PHOSPHOKINASE 177 U/L (26-192); CREATININE FOR GFR 0.71 MG/DL (0.55-1.30); ETHYL ALCOHOL (ETHANOL) < 0.003 % (0.000-0.010); GLOMERULAR FILTRATION RATE > 60.0 (>60); GLUCOSE, FASTING 86 MG/DL (70-100); METHADONE URINE NEGATIVE (NEGATIVE); OPIATES URINE NEGATIVE (NEGATIVE); PHENCYCLIDINE URINE NEGATIVE (NEGATIVE); POTASSIUM SERUM 4.2 MEQ/L (3.5-5.1); SALICYLATE LEVEL < 1.7 MG/DL (5.0-30.0); SODIUM LEVEL 142 MEQ/L (136-145); TOTAL PROTEIN 6.3 GM/DL (6.4-8.2)
--- NOTE | 2020-11-30 10:54 | REP ---
INDICATION: trauma. COMPARISON: Comparison study June 13, 2020. TECHNIQUE: Portable upright AP chest radiograph. FINDINGS: Exam quality is inhibited some degree by patient body habitus. The lungs are well inflated and no infiltrate is seen. Pleural angles are sharp. Cardiomediastinal silhouette is unremarkable. No skeletal fracture is visible.. IMPRESSION: No active disease. <Electronically signed by Rakan Anthony > 11/30/20 [id number]
[2020-11-30] MEDS ORDERED: ISOVUE-370 76% 100ML VIAL As Ordered ONE (10:55)
--- NOTE | 2020-11-30 10:55 | REP ---
INDICATION: trauma. COMPARISON: None. TECHNIQUE: Two views of the left clavicle are obtained. FINDINGS: AP and tube angled views of the left clavicle show no evidence of clavicle fracture. The acromioclavicular and manubrial clavicular articulations are unremarkable and normal alignment. IMPRESSION: Negative left clavicle views. <Electronically signed by Rakan Anthony > 11/30/20 [id number]
--- NOTE | 2020-11-30 11:29 | REP ---
INDICATION: epigastric pain. COMPARISON: Comparison CT study June 01, 2020.. TECHNIQUE: Helical scanning was acquired and 4 mm axial images are re-formatted. Coronal and sagittal MPR images were generated and reviewed. The contrast enhancement dose is 100 mL of intravenous Isovue 370. FINDINGS: Preliminary digital tub mender radiograph is unremarkable. Lung bases are clear on axial CT images. The liver and the spleen are homogeneous in texture. The liver and spleen are both mildly enlarged unchanged from prior study. No abnormality is noted in the pancreas or the gallbladder. Normal adrenal glands are observed. The kidneys enhance symmetrically and appear morphologically intact. No retroperitoneal mass or adenopathy is seen. Small and large intestinal bowel loops are unremarkable. The appendix is surgically absent. No uterine or adnexal abnormality is seen. Urinary bladder is intact. No abdominal wall defect is seen. Bone window settings show no bony destructive lesion or other acute abnormality. IMPRESSION: No acute abdominal or pelvic abnormality. A pending is surgically absent. <Electronically signed by Rakan Anthony > 11/30/20 [id number]
--- NOTE | 2020-12-01 09:12 | ECGEPIP ---
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
[2020-12-01] MEDS ORDERED: MAALOX 30 ML SUSP *UDC PO PRN (13:40)
[2020-12-01] MEDS ORDERED: MOM 30ML SUSPENSION UDC PO PRN (13:40)
[2020-12-01] MEDS ORDERED: ACETAMINOPHEN TAB 650MG DOSE (2X325MG) PO PRN (13:40)
[2020-12-01] MEDS ORDERED: traZODone 50 MG TAB PO PRN (13:40)
[2020-12-01 15:32] VITALS: BP 150/86
[2020-12-02 06:50] VITALS: BP 105/58
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
== END 2020-12-02 13:19 | disposition home or self-care (01) | DRG 753 ==
LOC: M ED 04:55 → M ED INP 12-01 13:36 → M PSY 12-01 14:45
PROVIDERS: ADMIT Psychiatry & Neurology Psychiatry; ATTEND Psychiatry & Neurology Psychiatry
DX: F39 Unspecified mood [affective] disorder (principal); F60.3 Borderline personality disorder; F90.9 Attention-deficit hyperactivity disorder, unspecified type; F60.2 Antisocial personality disorder; E66.9 Obesity, unspecified; Z62.810 Personal history of physical and sexual abuse in childhood; Z81.8 Family history of other mental and behavioral disorders; F17.210 Nicotine dependence, cigarettes, uncomplicated; Z88.0 Allergy status to penicillin; Z88.2 Allergy status to sulfonamides; Z88.8 Allergy status to other drugs, medicaments and biological substances; Z91.018 Allergy to other foods; Z91.040 Latex allergy status; Z76.5 Malingerer [conscious simulation]

== ENCOUNTER 2020-12-03 12:33 | Emergency (ER) | payer MEDICAID ==
[~2020-12-03] VITALS: Ht 167.6 cm; Wt 167.7 kg
[2020-12-03 12:33] VITALS: BP 123/65
== END 2020-12-03 15:12 | disposition home or self-care (01) ==
LOC: M ED 12:33
DX: L76.22 Postprocedural hemorrhage of skin and subcutaneous tissue following other procedure (principal); R22.32 Localized swelling, mass and lump, left upper limb; I10 Essential (primary) hypertension; E28.2 Polycystic ovarian syndrome; K21.9 Gastro-esophageal reflux disease without esophagitis; Z88.0 Allergy status to penicillin; Z88.1 Allergy status to other antibiotic agents; Z88.2 Allergy status to sulfonamides; Z88.8 Allergy status to other drugs, medicaments and biological substances; Z79.899 Other long term (current) drug therapy

== ENCOUNTER 2020-12-03 17:50 | Emergency (ER) | payer MEDICAID ==
[2020-12-03 20:20] VITALS: BP 113/62
== END 2020-12-03 20:27 | disposition home or self-care (01) ==
LOC: M ED 17:50
DX: F43.0 Acute stress reaction (principal); F60.3 Borderline personality disorder; I10 Essential (primary) hypertension; K21.9 Gastro-esophageal reflux disease without esophagitis; Z88.0 Allergy status to penicillin; Z88.2 Allergy status to sulfonamides; Z88.8 Allergy status to other drugs, medicaments and biological substances; Z91.040 Latex allergy status; Z79.899 Other long term (current) drug therapy

== ENCOUNTER 2020-12-06 00:04 | Inpatient (IN) | payer MEDICAID ==
[~2020-12-06] VITALS: Ht 167.6 cm; Wt 167.7 kg
[2020-12-06 01:05] LABS: HEMATOCRIT 33.3 % (36.0-47.0); HEMOGLOBIN 9.6 g/dl (12.0-15.5); MEAN CORPUSCULAR HEMOGLOBIN 23.3 pg (27.0-33.0); MEAN CORPUSCULAR HGB CONC 28.8 g/dl (32.0-36.5); MEAN CORPUSCULAR VOLUME 80.8 fl (80.0-96.0); PLATELET COUNT, AUTOMATED 196 10^3/uL (150-450); RED BLOOD COUNT 4.12 10^6/uL (4.00-5.40); WHITE BLOOD COUNT 6.5 10^3/uL (4.0-10.0)
[2020-12-06 01:30] LABS: AMPHETAMINES LEVEL URINE NEGATIVE (NEGATIVE); BARBITURATES URINE NEGATIVE (NEGATIVE); BENZODIAZEPINES URINE NEGATIVE (NEGATIVE); CANNABINOIDS URINE POSITIVE (NEGATIVE); COCAINE METABOLITE URINE NEGATIVE (NEGATIVE); METHADONE URINE NEGATIVE (NEGATIVE); OPIATES URINE NEGATIVE (NEGATIVE); PHENCYCLIDINE URINE NEGATIVE (NEGATIVE)
[2020-12-06 01:32] LABS: HCG, SERUM QUALITATIVE NEGATIVE (NEGATIVE)
[2020-12-06 01:42] LABS: ACETAMINOPHEN LEVEL < 2.0 UG/ML (10.0-30.0); ALBUMIN 3.5 GM/DL (3.2-5.2); ALT/SGPT 36 U/L (12-78); BILIRUBIN,DIRECT < 0.1 MG/DL (0.0-0.2); BILIRUBIN,TOTAL 0.2 MG/DL (0.2-1.0); BLOOD UREA NITROGEN 13 MG/DL (7-18); CALCIUM LEVEL 8.8 MG/DL (8.5-10.1); CARBON DIOXIDE LEVEL 26 MEQ/L (21-32); CHLORIDE LEVEL 112 MEQ/L (98-107); CREATININE FOR GFR 0.72 MG/DL (0.55-1.30); ETHYL ALCOHOL (ETHANOL) < 0.003 % (0.000-0.010); GLOMERULAR FILTRATION RATE > 60.0 (>60); GLUCOSE, FASTING 114 MG/DL (70-100); POTASSIUM SERUM 3.5 MEQ/L (3.5-5.1); SALICYLATE LEVEL < 1.7 MG/DL (5.0-30.0); SODIUM LEVEL 143 MEQ/L (136-145); TOTAL PROTEIN 6.5 GM/DL (6.4-8.2)
[2020-12-06 07:30] LABS: RSV AMPLIFICATION NEGATIVE (NEGATIVE)
[2020-12-06] MEDS ORDERED: traZODone 50 MG TAB PO PRN (09:55)
[2020-12-06] MEDS ORDERED: MOM 30ML SUSPENSION UDC PO PRN (09:55)
[2020-12-06] MEDS ORDERED: OLANZapine ORAL DISINTEGRATING TAB 5MG PO PRN (09:55)
[2020-12-06] MEDS ORDERED: LORazepam 1 MG TAB PO PRN (09:55)
[2020-12-06 11:38] VITALS: BP 142/88
[2020-12-06] MEDS: FLUoxetine 10 MG CAP PO SCH (14:47)
[2020-12-06] MEDS: ARIPiprazole 15 MG TAB (AbiLIFY) PO SCH (14:47)
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
[2020-12-06 18:00] VITALS: BP 142/90
[2020-12-07 06:57] VITALS: BP 143/75
[2020-12-07] MEDS: ARIPiprazole 15 MG TAB (AbiLIFY) PO SCH (08:28)
[2020-12-07] MEDS: FLUoxetine 10 MG CAP PO SCH (08:28)
--- NOTE | 2020-12-07 17:48 | MHIPN ---
[facility] PROGRESS NOTE DATE: 12/07/2020 SUBJECTIVE: The patient today states that she is doing not good. Actually, she says she did not sleep well last night. There was a lot of commotion on the unit, but she says that her suicidal thoughts are "gone since I started on medication again." MENTAL STATUS EXAMINATION: This patient is alert and oriented times three. She is pleasant, verbally spontaneous. There is no formal thought disorder noted. She says her mood is good. Affect is appropriate. She is not psychotic. She says she is no longer having suicidal or homicidal ideations. Concentration is fair. Memory is intact. Insight and judgment is poor.| DIAGNOSES: 1. Unspecified mood disorder. 2. Borderline personality disorder. 3. Attention deficit hyperactivity disorder. 4. Posttraumatic stress disorder by history. 5. Antisocial personality disorder by history. 6. Cannabis use disorder. TREATMENT PLAN: At this point, we will further observe and evaluate the patent for continued elevation and stabilization of her mood and continued resolution of suicidal ideation and we will titrate medications as indicated.
[2020-12-07] MEDS: hydrOXYzine 25 MG TAB PO PRN (20:41)
[2020-12-07] MEDS: MAALOX 30 ML SUSP *UDC PO PRN (20:41)
[2020-12-07] MEDS: ACETAMINOPHEN TAB 650MG DOSE (2X325MG) PO PRN (20:41)
[2020-12-08 06:24] VITALS: BP 111/58
[2020-12-08] MEDS: FLUoxetine 10 MG CAP PO SCH (08:40)
[2020-12-08] MEDS: ARIPiprazole 15 MG TAB (AbiLIFY) PO SCH (08:40)
[2020-12-08] MEDS: hydrOXYzine 25 MG TAB PO PRN (12:55)
--- NOTE | 2020-12-08 15:02 | MHIPNPDOC ---
[facility] Progress Note Progress Note DATE OF SERVICE: 12/08/20 HISTORY: This is one of multiple psychiatric admissions. She presented to the hospital after she had been using cannabis for 4 days and stating that she wanted to murder all of her exes and then kill herself by taking an overdose of her pills. She has a history of multiple psychiatric hospitalizations, and the last time she was discharged on no psychotropic medication, and she says "that was the biggest mistake of my life." She was brought to the hospital by a pickup order. Patient had called the police to say she was homicidal and suicidal. The patient had been smoking cannabis for 4 days. She says that she has not been on any medications, as I noted above. She reported having no place to sleep that night and that she was having suicidal thoughts. She was refusing to give the name of any of her exes. Per ED report; patient presented to ED with MAYRA, Phan #[id number], on a 9:41 continuous pickling line pickler helper order. Pt called police and stated she was going to kill "all her ex's and then kill herself." Pt repeated stated the same to TW. Pt stated she has been smoking Cannabis past 4 days, "must have had something in it, making me feel funny," sleeping ok, eating increased, not taking her medications, "I don't have any, after I was DC 4 days ago from upstairs." Pt reports no place to sleep tonight, and was having these terrible thoughts. Pt reports no ETOH, no AH, no VH, no place to stay, 2 attempts of killing self-last year, and "it just seems hopeless", refused to share names of her EX'S. Pt went back to sleep, refused to discuss anything with this worker at this time. Dr. Kruger wants the psyche MD to come in and see if this person meets criteria for admission or discharge. Dr. Da hodges states ok to be DC from [facility] ED at this time. Insist on psyche interview. Relay to next shift for Dr. Barajas.. VITAL SIGNS: See below. CURRENT MEDICATIONS: See below. MENTAL STATUS EXAMINATION: Patient is a 20-year old domicile, single- says she is engaged, ,female, who is was was admitted after calling police and stating she was going to kill "all her ex's and then kill herself." Speech: Is normal tone, rate, volume. Language skills are Intact. Thought processes including: Disorganized Thought content: Denies SI/HI/AH/VH. Description of abnormal or psychotic thoughts: None. Judgment: Poor Insight: poor Orientation: Alert and oriented X3. Recent and remote memory: Intact Attention span and concentration: Limited. Language: Intact. Fund of knowledge:Average Mood: Irritable. Affect: Labile. DIAGNOSES: Unspecified Mood Disorder Borderline Personality Disorder ADHD PTSD Antisocial Personality Disorder History of Malingering Bipolar History per patient's report ASSESSMENT:Assessment; Patient was discharged from this facility on the 12/02/20. At the time of discharge patient reported that she had not been on medications for many months, indicated that she did not want medications. She reported no SI or hallucinations. At the time of her 12/02/20 initial assessment, she demanded to be discharged saying she no longer had suicidal ideation. Throughout the day patient has approaching staff demanding to be discharged. In todays interview, patient again starts by demanding to be discharged. She states that she went to her fathers place over the weekend and used weed laced with something, said she started having hallucinations, says she was seeing shit. Says she had not uses cannabis for a long time before Tuesday. She is alert and oriented X3. Making childlike conversations about her boyfriend, father, stepmother, and children ages 15 and 16 born to her when she was 8 who both of unusual circumstances. These appear to be fictitious stories. Says she had an appointment at [facility] today. Says that she attended group therapy on Tuesday and she learned some coping skills that she will use going forward. Says she will stay her fathers place because there is drugs there. Says she will go to her baby- fathers place post discharge because it is safer there. Says she will not go to [facility]. Probable discharge tomorrow. Reporting she has no SI/HI/AH/VH today. MANAGEMENT PLAN: Continue all medication. Probable discharge tomorrow. Patient no longer meets criteria for continue hospitalization. TIME SPENT: 25 minutes. Vital Signs Vital Signs Date Time Temp Pulse Resp B/P (MAP) Pulse Ox O2 Delivery O2 Flow Rate FiO2 12/08/20 06:24 98.2 67 16 111/58 (75) 96 Room Air Current Medications Current Medications Medications (Trade) Dose Ordered Sig/Susy Route PRN Reason Start Time Stop Time Status Last Admin Dose Admin Acetaminophen (Tylenol Tab) 650 mg Q6HP PRN PO HEADACHE or DISCOMFORT 12/06/20 09:55 12/07/20 20:41 Al Hydrox/Mg Hydrox/Simethicone (Mylanta) 30 ml Q4HP PRN PO HEARTBURN/INDIGESTION 12/06/20 09:55 12/07/20 20:41 Aripiprazole (AbiLIFY) 15 mg DAILY PO 12/06/20 09:00 12/08/20 08:40 Fluoxetine HCl (PROzac) 10 mg QAM PO 12/06/20 09:00 12/08/20 08:40 Home Med (Med Rec Complete!) ASDIRECTED XX 12/06/20 07:05 12/06/20 07:09 DC Hydroxyzine HCl (Atarax) 25 mg Q6HP PRN PO ANXIETY 12/06/20 12:20 12/08/20 12:55 Lorazepam (Ativan) 1 mg Q4HP PRN PO ANXIETY/AGITATION 12/06/20 09:55 Magnesium Hydroxide (Milk Of Magnesia) 30 ml DAILYPRN PRN PO CONSTIPATION 12/06/20 09:55 Olanzapine (ZyPREXA ZYDIS) 10 mg Q4HP PRN PO ANXIETY/AGITATION 12/06/20 09:55 Trazodone HCl (Desyrel) 50 mg QHSP PRN PO INSOMNIA 12/06/20 09:55 12/07/20 20:41 Allergies Coded Allergies: Mushroom (Verified Allergy, Unknown, 12/06/20) Penicillins (Verified Allergy, Unknown, 12/06/20) Sulfa (Sulfonamide Antibiotics) (Verified Allergy, Unknown, 12/06/20) TURKEY (Verified Allergy, Unknown, 12/06/20) emtricitabine (Verified Allergy, Unknown, 12/06/20) latex (Verified Allergy, Unknown, 12/06/20) raltegravir (Verified Allergy, Unknown, 12/06/20) sulfamethoxazole (Verified Allergy, Unknown, 12/06/20) tomato (Verified Allergy, Unknown, 12/06/20) trimethoprim (Verified Allergy, Unknown, 12/06/20) haloperidol (Unverified Adverse Reaction, Intermediate, GI BLEED, 12/06/20) HARMONY OSPINA PARIMUTUEL CLERK Dec 08, 2020 14:54
[2020-12-08 18:53] VITALS: BP 131/67
[2020-12-08] MEDS: MAALOX 30 ML SUSP *UDC PO PRN (20:00)
[2020-12-08] MEDS: ACETAMINOPHEN TAB 650MG DOSE (2X325MG) PO PRN (20:01)
[2020-12-09 06:39] VITALS: BP 114/51
[2020-12-09] MEDS: FLUoxetine 10 MG CAP PO SCH (08:34)
[2020-12-09] MEDS: ARIPiprazole 15 MG TAB (AbiLIFY) PO SCH (08:34)
[2020-12-09] MEDS ORDERED: FLUO20CA20 PO (09:38)
[2020-12-09] MEDS ORDERED: ABIL1TAB12 PO (09:38)
--- NOTE | 2020-12-09 10:10 | MHDSPDOC ---
[facility] Discharge Summary Discharge Summary DATE OF ADMISSION: Dec 06, 2020 at 09:55 DATE OF DISCHARGE: 12/09/20 0940 DISCHARGE DIAGNOSES: Unspecified Mood Disorder Borderline Personality Disorder ADHD PTSD Antisocial Personality Disorder History of Malingering Bipolar History per patient's report Morbid Obesity REASON FOR ADMISSION: This is one of multiple psychiatric admissions. She presented to the hospital after she had been using cannabis for 4 days and stating that she wanted to murder all of her exes and then kill herself by taking an overdose of her pills. She has a history of multiple psychiatric hospitalizations, and the last time she was discharged on no psychotropic medication, and she says "that was the biggest mistake of my life." She was brought to the hospital by a pickup order. Patient had called the police to say she was homicidal and suicidal. The patient had been smoking cannabis for 4 days. She says that she has not been on any medications, as I noted above. She reported having no place to sleep that night and that she was having suicidal th oughts. She was refusing to give the name of any of her exes. Per ED report; patient presented to ED with Phan NUNEZ #[id number], on a 9:41 picker/puller order. Pt called police and stated she was going to kill "all her ex's and then kill herself." Pt repeated stated the same to TW. Pt stated she has been smoking Cannabis past 4 days, "must have had something in it, making me feel funny," sl eeping ok, eating increased, not taking her medications, "I don't have any, after I was DC 4 days ago from upstairs." Pt reports no place to sleep tonight, and was having these terrible thoughts. Pt reports no ETOH, no AH, no VH, no place to stay, 2 attempts of killing self-last year, and "it just seems hopeless", refused to share names of her EX'S. Pt went back to sleep, refused to discuss anything with this worker at this time. Dr. Kruger wants the psyche MD to come in and see if this person meets criteria for admission or discharge. Dr. Kruger states ok to be DC from [facility] ED at this time. Insist on psyche interview. CONSULTANTS INVOLVED: See Medical H + P by Hospitalist TREATMENT AND PROGRESS ON THE UNIT: Patient was admitted to the [facility] on a 9.39 legal status he was afforded the following treatment modalities: 1) Individual Therapy 2) Group Therapy 3) Medication Management 4) Milieu Therapy 5) Safe Environment HOSPITAL COURSE: Patient was admitted to [facility] on a legal status after Pt called police and stated she was going to kill "all her ex's and then kill herself." Patient was recently discharged on 12/02/20, she had no medications at that time, declined medications. She returned on 12/06/20. She reports that she was smoking marijuana for 4 days with last use being on Tuesday. Her drug screen is positive for cannabis. Patient has been grandiose and often tells stories that sound fabricated, for example, patient reports she had 2 children ages 15 and 16 who both under mysterious circumstances but this patient is only 20 years old and couldn't possibly have birthed teenage children. During yesterdays meeting she demanded to be discharged, was verbally aggressive and slammed the door when she was told that discharge would not happen until the next day. Patient called the police saying she would kill all her ex's but it's unclear if she has any ex's since she will not sign a release for staff to contact any exe's. Patient has a long history of fabricated stories that are uns ubstantiated. DISCHARGE ASSESSMENT: In today's interview, patient is alert and oriented, pt is dishevelled, her hygiene and grooming is well-kempt. She is engaged in the the interview but continues to have child like and grandiose story lines about her boyfriend and other family members. She exaggerates her relationships with "boyfriend and former boyfriends". Denies depression and anxiety. Denies suicidal and homicidal ideation, planning or intent. Denies and is not observed with albaro, psychotic symptoms of delusions, bizarre thinking, obsessions, paranoia, ruminations illogical thoughts, flight of ideas or having poor insight and judgement. Patient has normal mentation, declines further hospitalization on a voluntary status and meets criteria for discharge today. Encouraged patient consider what avenues she needs to take to curb her repeated admissions. We reiterated to her the importance of staying in treatment, keeping her followup therapy appointments, taking her prescribed medication and not using substances. MENTAL STATUS EXAMINATION ON DISCHARGE: Patient is a 20-year old, single female who is admitted for homicidal threats Speech: Is fluid, conversant, normal rate, tone and volume Language skills are intact Thought processes including: linear and goal oriented Thought content: denies depression and anxiety. Denies suicidal/homicidal ideation, planning or intent. Abstract reasoning, and computation: fair Description of associations: denies, none observed Description of abnormal or psychotic thoughts: denies, none observed. Judgment: fair Insight: fair Orientation: alert and oriented to person, place, time and situation Recent and remote memory: intact Attention span and concentration: good Language: expansive Fund of knowledge: average Mood: Euthymic Mood Affect: reactive PLAN/FOLLOWUP ARRANGEMENTS:Follow up with [facility] The amount of time spent in the coordination of care for this patient was approximately 25 minutes. ETOH/Disorder Med Rx ETOH/DRUG DISORDER RX: Offrd @ d/c & pt refused Vital Signs/I&Os Vital Signs Date Time Temp Pulse Resp B/P (MAP) Pulse Ox O2 Delivery O2 Flow Rate FiO2 12/09/20 06:39 98.3 61 16 114/51 (72) 98 Room Air Medications Scheduled Aripiprazole (Abilify) 15 Mg Tablet, 15 MG PO DAILY for mood, #7 Fluoxetine Hcl (Fluoxetine HCl) 20 Mg Capsule, 20 MG PO DAILY for mood, #7 Allergies Coded Allergies: Mushroom (Verified Allergy, Unknown, 12/06/20) Penicillins (Verified Allergy, Unknown, 12/06/20) Sulfa (Sulfonamide Antibiotics) (Verified Allergy, Unknown, 12/06/20) TURKEY (Verified Allergy, Unknown, 12/06/20) emtricitabine (Verified Allergy, Unknown, 12/06/20) latex (Verified Allergy, Unknown, 12/06/20) raltegravir (Verified Allergy, Unknown, 12/06/20) sulfamethoxazole (Verified Allergy, Unknown, 12/06/20) tomato (Verified Allergy, Unknown, 12/06/20) trimethoprim (Verified Allergy, Unknown, 12/06/20) haloperidol (Unverified Adverse Reaction, Intermediate, GI BLEED, 12/06/20) HARMONY OSPINA NP Dec 09, 2020 09:42
== END 2020-12-09 10:04 | disposition home or self-care (01) | DRG 753 ==
LOC: M ED 00:04 → M ED INP 09:55 → M PSY 11:33
PROVIDERS: ADMIT Psychiatry & Neurology Psychiatry; ATTEND Psychiatry & Neurology Psychiatry
DX: F39 Unspecified mood [affective] disorder (principal); F60.3 Borderline personality disorder; F43.10 Post-traumatic stress disorder, unspecified; F60.2 Antisocial personality disorder; F12.10 Cannabis abuse, uncomplicated; F90.9 Attention-deficit hyperactivity disorder, unspecified type; Z91.5 Personal history of self-harm; Z81.8 Family history of other mental and behavioral disorders; Z62.810 Personal history of physical and sexual abuse in childhood; E66.9 Obesity, unspecified; Z79.899 Other long term (current) drug therapy; Z88.0 Allergy status to penicillin; Z88.2 Allergy status to sulfonamides; Z88.8 Allergy status to other drugs, medicaments and biological substances; Z91.018 Allergy to other foods; Z91.040 Latex allergy status

== ENCOUNTER 2020-12-09 21:34 | Emergency (ER) | payer MEDICAID ==
[~2020-12-09] VITALS: Ht 167.6 cm; Wt 104.5 kg
[~2020-12-09 21:34] MED LIST changes: +ABIL1TAB12 PO; +EMTR1TAB16 PO; +FLUO20CA20 PO; -TRUVTAB PO
[2020-12-09 21:35] VITALS: BP 129/71
[2020-12-10] MEDS ORDERED: ACETAMINOPHEN TAB 650MG DOSE (2X325MG) PO ONE (00:20)
--- NOTE | 2020-12-26 17:28 | REP ---
INDICATION: fall COMPARISON: None. TECHNIQUE: 06/10/2020. FINDINGS: There is no evidence of acute fracture, dislocation, or intrinsic bone disease.There is diffuse soft tissue swelling. The ankle mortise is anatomic. There is stable calcaneal spurring. IMPRESSION: No fracture or dislocation. Soft tissue swelling. Calcaneal spurring. Preliminary report provided by virtual Radiology at the time of the exam. <Electronically signed by Tapan Hicks > 12/26/20 1181
== END 2020-12-10 00:29 | disposition home or self-care (01) ==
LOC: M ED 21:34
DX: S93.401A Sprain of unspecified ligament of right ankle, initial encounter (principal); W18.40XA Slipping, tripping and stumbling without falling, unspecified, initial encounter; Z88.0 Allergy status to penicillin; Z88.1 Allergy status to other antibiotic agents; Z88.2 Allergy status to sulfonamides; Z91.018 Allergy to other foods; Z91.040 Latex allergy status; Y92.9 Unspecified place or not applicable; Y93.9 Activity, unspecified; Y99.9 Unspecified external cause status

== ENCOUNTER 2020-12-10 03:51 | Emergency (ER) | payer MEDICAID ==
[~2020-12-10] VITALS: Ht 167.6 cm; Wt 104.5 kg
[~2020-12-10 03:51] MED LIST changes: -EMTR1TAB16 PO; +TRUVTAB PO
[2020-12-10 07:29] LABS: HEMATOCRIT 37.5 % (36.0-47.0); HEMOGLOBIN 10.6 g/dl (12.0-15.5); MEAN CORPUSCULAR HEMOGLOBIN 22.6 pg (27.0-33.0); MEAN CORPUSCULAR HGB CONC 28.3 g/dl (32.0-36.5); MEAN CORPUSCULAR VOLUME 79.8 fl (80.0-96.0); PLATELET COUNT, AUTOMATED 246 10^3/uL (150-450); WHITE BLOOD COUNT 8.4 10^3/uL (4.0-10.0)
[2020-12-10 07:35] LABS: HCG, SERUM QUALITATIVE NEGATIVE (NEGATIVE)
[2020-12-10 07:38] LABS: ACETAMINOPHEN LEVEL < 2.0 UG/ML (10.0-30.0); ALBUMIN 3.6 GM/DL (3.2-5.2); ALT/SGPT 42 U/L (12-78); BILIRUBIN,DIRECT < 0.1 MG/DL (0.0-0.2); BILIRUBIN,TOTAL 0.2 MG/DL (0.2-1.0); BLOOD UREA NITROGEN 13 MG/DL (7-18); CALCIUM LEVEL 8.9 MG/DL (8.5-10.1); CARBON DIOXIDE LEVEL 25 MEQ/L (21-32); CHLORIDE LEVEL 110 MEQ/L (98-107); CREATININE FOR GFR 0.74 MG/DL (0.55-1.30); ETHYL ALCOHOL (ETHANOL) < 0.003 % (0.000-0.010); GLOMERULAR FILTRATION RATE > 60.0 (>60); GLUCOSE, FASTING 100 MG/DL (70-100); POTASSIUM SERUM 4.3 MEQ/L (3.5-5.1); SALICYLATE LEVEL < 1.7 MG/DL (5.0-30.0); SODIUM LEVEL 142 MEQ/L (136-145); TOTAL PROTEIN 6.7 GM/DL (6.4-8.2)
[2020-12-10 07:41] LABS: AMPHETAMINES LEVEL URINE NEGATIVE (NEGATIVE); BARBITURATES URINE NEGATIVE (NEGATIVE); BENZODIAZEPINES URINE NEGATIVE (NEGATIVE); CANNABINOIDS URINE NEGATIVE (NEGATIVE); COCAINE METABOLITE URINE NEGATIVE (NEGATIVE); METHADONE URINE NEGATIVE (NEGATIVE); OPIATES URINE NEGATIVE (NEGATIVE); PHENCYCLIDINE URINE NEGATIVE (NEGATIVE)
[2020-12-10] MEDS ORDERED: ACETAMINOPHEN TAB 650MG DOSE (2X325MG) PO ONE (07:45)
--- NOTE | 2020-12-10 08:02 | REP ---
INDICATION: fall. COMPARISON: Comparison left hand radiographs 15 November 2019.. TECHNIQUE: Four views of the left hand are provided. FINDINGS: Four views of the left hand demonstrate overall normal mineralization. No fracture or subluxation is seen. Joint spaces are preserved.. . No opaque foreign body noted. IMPRESSION: Negative left hand series. <Electronically signed by Rakan Anthony > 12/10/20 0751
[2020-12-10 09:45] VITALS: BP 131/66
== END 2020-12-10 09:47 | disposition home or self-care (01) ==
LOC: M ED 03:51
DX: S60.222A Contusion of left hand, initial encounter (principal); Z88.0 Allergy status to penicillin; Z88.1 Allergy status to other antibiotic agents; Z88.2 Allergy status to sulfonamides; Z91.018 Allergy to other foods; Z91.040 Latex allergy status; Z88.8 Allergy status to other drugs, medicaments and biological substances; Y92.9 Unspecified place or not applicable; Y93.9 Activity, unspecified; Y99.9 Unspecified external cause status

== ENCOUNTER 2020-12-12 14:06 | Emergency (ER) | payer MEDICAID ==
[~2020-12-12] VITALS: Ht 167.6 cm; Wt 92.3 kg
--- NOTE | 2020-12-12 16:58 | REP ---
INDICATION: cough/ pain inspiration COMPARISON: 11/30/2020. TECHNIQUE: PA/Lateral FINDINGS: Lungs: Clear, no infiltrate. Heart: Normal in size. Mediastinum: Mediastinal silhouette unremarkable. Pleural angles: Unremarkable.. Bones and soft tissues: Unremarkable. IMPRESSION: No acute pulmonary disease. <Electronically signed by Tapan Hicks > 12/12/20 [id number]
[2020-12-12 17:23] LABS: BASO % 0.5 % (0.0-1.0); EOS # 0.3 10^3/uL (0.0-0.5); EOS % 3.4 % (0.0-3.0); HEMATOCRIT 34.8 % (36.0-47.0); HEMOGLOBIN 9.7 g/dl (12.0-15.5); LYMPH # 1.7 10^3/uL (1.5-5.0); LYMPH % 20.5 % (24.0-44.0); MEAN CORPUSCULAR HEMOGLOBIN 22.6 pg (27.0-33.0); MEAN CORPUSCULAR HGB CONC 27.9 g/dl (32.0-36.5); MEAN CORPUSCULAR VOLUME 80.9 fl (80.0-96.0); MONO # 0.8 10^3/uL (0.0-0.8); MONO % 9.2 % (2.0-8.0); NEUTROPHILS # 5.5 10^3/uL (1.5-8.5); PLATELET COUNT, AUTOMATED 196 10^3/uL (150-450); WHITE BLOOD COUNT 8.3 10^3/uL (4.0-10.0)
[2020-12-12 17:48] LABS: BLOOD UREA NITROGEN 9 MG/DL (7-18); CALCIUM LEVEL 9.1 MG/DL (8.5-10.1); CARBON DIOXIDE LEVEL 29 MEQ/L (21-32); CHLORIDE LEVEL 109 MEQ/L (98-107); CK-MB VALUE MASS < 1.0 NG/ML (<3.6); CPK CREATINE PHOSPHOKINASE 111 U/L (26-192); CREATININE FOR GFR 0.68 MG/DL (0.55-1.30); GLOMERULAR FILTRATION RATE > 60.0 (>60); GLUCOSE, FASTING 78 MG/DL (70-100); SODIUM LEVEL 143 MEQ/L (136-145); TROPONIN I < 0.02 NG/ML (< 0.10)
[2020-12-12] MEDS ORDERED: FERR325T3 PO (18:06)
[2020-12-12 18:36] VITALS: BP 132/74
--- NOTE | 2020-12-13 06:20 | ECGEPIP ---
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
== END 2020-12-12 18:36 | disposition home or self-care (01) ==
LOC: M ED 14:06 → EDBD 14:06 → M ED 18:36
DX: D64.9 Anemia, unspecified (principal); J00 Acute nasopharyngitis [common cold]; I10 Essential (primary) hypertension; E78.5 Hyperlipidemia, unspecified; Z88.0 Allergy status to penicillin; Z88.1 Allergy status to other antibiotic agents; Z88.2 Allergy status to sulfonamides; Z88.8 Allergy status to other drugs, medicaments and biological substances; Z91.018 Allergy to other foods; Z91.040 Latex allergy status

== ENCOUNTER 2020-12-13 21:45 | Emergency (ER) | payer MEDICAID, OTHER ==
[~2020-12-13] VITALS: Ht 167.6 cm; Wt 104.5 kg
[~2020-12-13 21:45] MED LIST changes: +FERR325T3 PO
[2020-12-13 23:20] LABS: HEMATOCRIT 34.6 % (36.0-47.0); HEMOGLOBIN 9.8 g/dl (12.0-15.5); MEAN CORPUSCULAR HGB CONC 28.3 g/dl (32.0-36.5); PLATELET COUNT, AUTOMATED 197 10^3/uL (150-450); RED BLOOD COUNT 4.27 10^6/uL (4.00-5.40); WHITE BLOOD COUNT 7.4 10^3/uL (4.0-10.0)
[2020-12-13 23:35] LABS: HCG, SERUM QUALITATIVE NEGATIVE (NEGATIVE)
[2020-12-13 23:46] LABS: AMPHETAMINES LEVEL URINE NEGATIVE (NEGATIVE); BARBITURATES URINE NEGATIVE (NEGATIVE); BENZODIAZEPINES URINE NEGATIVE (NEGATIVE); CANNABINOIDS URINE POSITIVE (NEGATIVE); COCAINE METABOLITE URINE NEGATIVE (NEGATIVE); METHADONE URINE NEGATIVE (NEGATIVE); OPIATES URINE NEGATIVE (NEGATIVE); PHENCYCLIDINE URINE NEGATIVE (NEGATIVE)
[2020-12-13 23:49] LABS: RSV AMPLIFICATION NEGATIVE (NEGATIVE)
[2020-12-13 23:50] LABS: ACETAMINOPHEN LEVEL < 2.0 UG/ML (10.0-30.0); ALBUMIN 3.3 GM/DL (3.2-5.2); ALT/SGPT 39 U/L (12-78); BILIRUBIN,DIRECT < 0.1 MG/DL (0.0-0.2); BILIRUBIN,TOTAL 0.1 MG/DL (0.2-1.0); BLOOD UREA NITROGEN 10 MG/DL (7-18); CALCIUM LEVEL 8.2 MG/DL (8.5-10.1); CARBON DIOXIDE LEVEL 25 MEQ/L (21-32); CHLORIDE LEVEL 112 MEQ/L (98-107); CREATININE FOR GFR 0.64 MG/DL (0.55-1.30); ETHYL ALCOHOL (ETHANOL) < 0.003 % (0.000-0.010); GLOMERULAR FILTRATION RATE > 60.0 (>60); GLUCOSE, FASTING 104 MG/DL (70-100); POTASSIUM SERUM 3.8 MEQ/L (3.5-5.1); SALICYLATE LEVEL < 1.7 MG/DL (5.0-30.0); SODIUM LEVEL 143 MEQ/L (136-145); TOTAL PROTEIN 6.5 GM/DL (6.4-8.2)
--- NOTE | 2020-12-14 06:23 | ECGEPIP ---
[facility] - ED Test Date: 2020-12-13 Pat Name: RAMYA MCCARTNEY Department: Room: - Gender: Female Cushion Maker Hand: MELODY : 2000 Requested By: Musa Pham Order Number: [id number] Reading MD: Naya Hinojosa Measurements Intervals [place] Rate: 102 P: 31 SC: 120 QRS: 17 QRSD: 90 T: 16 QT: 350 QTc: 456 Interpretive Statements Sinus tachycardia Nonspecific ST T wave changes Delayed R wave progression 12/12/[address] T wave changes Electronically Signed on 12-14-2020 6:23:21 EDT by Naya Hinojosa
[2020-12-14] MEDS ORDERED: FERROUS SULFATE 325MG TAB PO SCH (09:00)
[2020-12-14] MEDS ORDERED: FLUoxetine 20 MG CAP PO SCH (09:00)
[2020-12-14] MEDS ORDERED: ARIPiprazole 10 MG TAB PO SCH (09:00)
[2020-12-14 10:40] VITALS: BP 134/78
== END 2020-12-14 10:42 | disposition home or self-care (01) ==
LOC: M ED 21:45
DX: F43.0 Acute stress reaction (principal); F32.9 Major depressive disorder, single episode, unspecified; Z88.0 Allergy status to penicillin; Z88.8 Allergy status to other drugs, medicaments and biological substances; Z91.018 Allergy to other foods; Z91.040 Latex allergy status

== ENCOUNTER 2020-12-15 21:54 | Emergency (ER) | payer OTHER ==
[~2020-12-15] VITALS: Ht 167.6 cm; Wt 169.2 kg
[2020-12-16 03:50] VITALS: BP 148/82
[2020-12-16] MEDS ORDERED: ONDANSETRON 4MG/2ML VIAL IV ONE (04:00)
[2020-12-16] MEDS ORDERED: MORPHINE 4 MG/ML 1ML VIAL/SYRINGE (J2270) IV ONE (04:00)
[2020-12-16 05:09] LABS: HEMATOCRIT 33.7 % (36.0-47.0); HEMOGLOBIN 9.4 g/dl (12.0-15.5); MEAN CORPUSCULAR HEMOGLOBIN 22.6 pg (27.0-33.0); MEAN CORPUSCULAR HGB CONC 27.9 g/dl (32.0-36.5); PLATELET COUNT, AUTOMATED 199 10^3/uL (150-450); RED BLOOD COUNT 4.16 10^6/uL (4.00-5.40); WHITE BLOOD COUNT 7.6 10^3/uL (4.0-10.0)
[2020-12-16 05:36] LABS: HCG, SERUM QUALITATIVE NEGATIVE (NEGATIVE)
[2020-12-16 05:37] LABS: ALBUMIN 3.3 GM/DL (3.2-5.2); ALT/SGPT 35 U/L (12-78); BILIRUBIN,TOTAL 0.3 MG/DL (0.2-1.0); BLOOD UREA NITROGEN 12 MG/DL (7-18); CALCIUM LEVEL 8.7 MG/DL (8.5-10.1); CARBON DIOXIDE LEVEL 27 MEQ/L (21-32); CHLORIDE LEVEL 111 MEQ/L (98-107); CK-MB VALUE MASS < 1.0 NG/ML (<3.6); CPK CREATINE PHOSPHOKINASE 115 U/L (26-192); CREATININE FOR GFR 0.66 MG/DL (0.55-1.30); GLOMERULAR FILTRATION RATE > 60.0 (>60); GLUCOSE, FASTING 84 MG/DL (70-100); LIPASE 47 U/L (73-393); MB/CK RELATIVE INDEX 0.87 (< OR =4); SODIUM LEVEL 144 MEQ/L (136-145); TOTAL PROTEIN 6.4 GM/DL (6.4-8.2); TROPONIN I < 0.02 NG/ML (< 0.10)
[2020-12-16] MEDS ORDERED: ISOVUE-370 76% 100ML VIAL As Ordered ONE (05:38)
--- NOTE | 2020-12-16 06:39 | REPVR ---
PROCEDURE INFORMATION: Exam: CT Abdomen And Pelvis With Contrast Exam date and time: 12/16/2020 5:46 AM Age: 20 years old Clinical indication: Abdominal pain; Other: Whole abdomen pain, ruq ttp TECHNIQUE: Imaging protocol: Computed tomography of the abdomen and pelvis with contrast. Radiation optimization: All CT scans at this facility use at least one of these dose optimization techniques: automated exposure control; mA and/or kV adjustment per patient size (includes targeted exams where dose is matched to clinical indication); or iterative reconstruction. Contrast material: ISOVUE 370; Contrast volume: 100 ml; Contrast route: INTRAVENOUS (IV); COMPARISON: CT ABD/PEL W/IV CONTRAST ONLY 11/30/2020 10:59 AM FINDINGS: Liver: Normal. No mass. Gallbladder and bile ducts: Normal. No calcified stones. No ductal dilation. Pancreas: Normal. No ductal dilation. Spleen: Normal. No splenomegaly. Adrenal glands: Normal. No mass. Kidneys and ureters: Normal. No hydronephrosis. Stomach and bowel: Unremarkable. No obstruction. No mucosal thickening. Appendix: The appendix is not visualized however there is no definite indirect signs of acute appendicitis. Intraperitoneal space: Unremarkable. No free air. No significant fluid collection. Vasculature: Unremarkable. No abdominal aortic aneurysm. Lymph nodes: Unremarkable. No enlarged lymph nodes. Urinary bladder: The urinary bladder is collapsed limiting its evaluation. Reproductive: Unremarkable as visualized. Bones/joints: Unremarkable. No acute fracture. Soft tissues: Multifocal small anterior abdominal wall defects with small hernias containing fat. IMPRESSION: 1. No CT evidence of acute abdominal or pelvic pathology. 2. Appendix not visualized with no indirect signs of acute appendicitis. 3. Few multifocal small anterior abdominal wall fat containing hernias seen. Electronically signed by: Jet Gray On 12/16/2020 06:39:16 AM
--- NOTE | 2020-12-16 17:51 | ECGEPIP ---
[facility] - ED Test Date: 2020-12-16 Pat Name: RAMYA MCCARTNEY Department: Room: - Gender: Female Test Designer: : 2000 Requested By: Musa Pham Order Number: [id number] Reading MD: Courtney Yo Measurements Intervals [place] Rate: 78 P: 14 NE: 128 QRS: 24 QRSD: 84 T: 29 QT: 390 QTc: 444 Interpretive Statements Normal sinus rhythm nsttw abnormality decreased rate 12/13/20 Electronically Signed on 12-16-2020 17:50:45 EDT by Courtney Yo
== END 2020-12-16 08:33 | disposition home or self-care (01) ==
LOC: M ED 21:54
DX: R10.13 Epigastric pain (principal); R07.9 Chest pain, unspecified; R11.2 Nausea with vomiting, unspecified; I10 Essential (primary) hypertension; E78.5 Hyperlipidemia, unspecified; F31.9 Bipolar disorder, unspecified; F41.9 Anxiety disorder, unspecified; K21.9 Gastro-esophageal reflux disease without esophagitis; J45.909 Unspecified asthma, uncomplicated; Z88.0 Allergy status to penicillin; Z88.2 Allergy status to sulfonamides; Z88.8 Allergy status to other drugs, medicaments and biological substances; Z91.040 Latex allergy status; Z79.899 Other long term (current) drug therapy
CPT/HCPCS: 74177; 80053; 81001; 82550; 82553; 83690; 84703; 85027; 87086; 93005; 96374; 96375; 99284; J2270; J2405; Q9967

== ENCOUNTER 2020-12-16 23:48 | Emergency (ER) | payer OTHER ==
[2020-12-17 01:08] LABS: HEMATOCRIT 34.8 % (36.0-47.0); HEMOGLOBIN 9.8 g/dl (12.0-15.5); MEAN CORPUSCULAR HGB CONC 28.2 g/dl (32.0-36.5); MEAN CORPUSCULAR VOLUME 81.5 fl (80.0-96.0); PLATELET COUNT, AUTOMATED 211 10^3/uL (150-450); RED BLOOD COUNT 4.27 10^6/uL (4.00-5.40); WHITE BLOOD COUNT 8.3 10^3/uL (4.0-10.0)
[2020-12-17 01:14] LABS: APPEARANCE, URINE HAZY (CLEAR); BACTERIA, URINE AUTO 1+ (NEGATIVE); BILIRUBIN, URINE AUTO NEGATIVE (NEGATIVE); BLOOD, URINE BLOOD NEGATIVE (NEGATIVE); COLOR, URINE YELLOW (YELLOW); GLUCOSE, URINE (UA) AUTO NEGATIVE (NEGATIVE); KETONE, URINE AUTO NEGATIVE (NEGATIVE); LEUKOCYTE ESTERASE, URINE AUTO 1+ (NEGATIVE); MUCUS, URINE SMALL (NEGATIVE); NITRITE, URINE AUTO NEGATIVE (NEGATIVE); PROTEIN, URINE AUTO NEGATIVE (NEGATIVE); RBC, URINE AUTO 3 /HPF (0-3); SPECIFIC GRAVITY URINE AUTO 1.019 (1.002-1.035); SQUAMOUS EPITHELIAL CELL UR AU 5 /HPF (0-6); UROBILINOGEN, URINE AUTO 0.2 mg/dL (0.0-2.0); WBC, URINE AUTO 2 /HPF (0-3)
[2020-12-17 01:41] LABS: HCG, SERUM QUALITATIVE NEGATIVE (NEGATIVE)
[2020-12-17 01:45] LABS: AMPHETAMINES LEVEL URINE NEGATIVE (NEGATIVE); BARBITURATES URINE NEGATIVE (NEGATIVE); BENZODIAZEPINES URINE NEGATIVE (NEGATIVE); CANNABINOIDS URINE NEGATIVE (NEGATIVE); COCAINE METABOLITE URINE NEGATIVE (NEGATIVE); METHADONE URINE NEGATIVE (NEGATIVE); OPIATES URINE NEGATIVE (NEGATIVE); PHENCYCLIDINE URINE NEGATIVE (NEGATIVE)
[2020-12-17 01:57] LABS: ACETAMINOPHEN LEVEL < 2.0 UG/ML (10.0-30.0); ALBUMIN 3.5 GM/DL (3.2-5.2); ALT/SGPT 38 U/L (12-78); BILIRUBIN,DIRECT < 0.1 MG/DL (0.0-0.2); BILIRUBIN,TOTAL 0.2 MG/DL (0.2-1.0); BLOOD UREA NITROGEN 10 MG/DL (7-18); CALCIUM LEVEL 8.8 MG/DL (8.5-10.1); CARBON DIOXIDE LEVEL 26 MEQ/L (21-32); CHLORIDE LEVEL 107 MEQ/L (98-107); CREATININE FOR GFR 0.72 MG/DL (0.55-1.30); ETHYL ALCOHOL (ETHANOL) < 0.003 % (0.000-0.010); GLOMERULAR FILTRATION RATE > 60.0 (>60); GLUCOSE, FASTING 115 MG/DL (70-100); POTASSIUM SERUM 3.9 MEQ/L (3.5-5.1); SALICYLATE LEVEL < 1.7 MG/DL (5.0-30.0); SODIUM LEVEL 142 MEQ/L (136-145); TOTAL PROTEIN 6.6 GM/DL (6.4-8.2)
[2020-12-17] MEDS ORDERED: PILL CUTTER 1 EACH XX PRN (08:55)
[2020-12-17] MEDS ORDERED: ARIPiprazole 10 MG TAB PO SCH (09:00)
[2020-12-17] MEDS ORDERED: FERROUS SULFATE 325MG TAB PO SCH (09:00)
[2020-12-17] MEDS ORDERED: FLUoxetine 20 MG CAP PO SCH (09:00)
[2020-12-17 10:27] VITALS: BP 140/83
== END 2020-12-17 10:29 | disposition home or self-care (01) ==
LOC: M ED 23:48
DX: F43.0 Acute stress reaction (principal); I10 Essential (primary) hypertension; F31.9 Bipolar disorder, unspecified; F41.9 Anxiety disorder, unspecified; K21.9 Gastro-esophageal reflux disease without esophagitis; G43.909 Migraine, unspecified, not intractable, without status migrainosus; Z88.0 Allergy status to penicillin; Z88.1 Allergy status to other antibiotic agents; Z88.2 Allergy status to sulfonamides; Z88.8 Allergy status to other drugs, medicaments and biological substances; Z79.899 Other long term (current) drug therapy

== ENCOUNTER 2020-12-18 16:43 | Emergency (ER) | payer OTHER ==
[~2020-12-18] VITALS: Ht 167.6 cm; Wt 101.0 kg
[2020-12-18 20:24] VITALS: BP 124/78
[2020-12-19] MEDS ORDERED: DOXY100C PO (01:02)
[2020-12-19] MEDS ORDERED: FLUO20CA22 PO (10:00)
[2020-12-19] MEDS ORDERED: ARIP1TAB10 PO (10:00)
[2020-12-19] MEDS ORDERED: FERR324T2 PO (10:00)
== END 2020-12-18 20:26 | disposition home or self-care (01) ==
LOC: M ED 16:43
DX: R45.851 Suicidal ideations (principal); Z76.5 Malingerer [conscious simulation]; I10 Essential (primary) hypertension; F32.9 Major depressive disorder, single episode, unspecified; G89.29 Other chronic pain; R10.9 Unspecified abdominal pain; F60.3 Borderline personality disorder; Z91.018 Allergy to other foods; Z88.0 Allergy status to penicillin; Z88.2 Allergy status to sulfonamides; Z91.040 Latex allergy status; Z88.1 Allergy status to other antibiotic agents

== ENCOUNTER 2020-12-19 00:50 | Emergency (ER) | payer OTHER ==
[~2020-12-19] VITALS: Ht 167.6 cm; Wt 92.2 kg
[~2020-12-19 00:50] MED LIST changes: +EMTR1TAB16 PO; -TRUVTAB PO
[2020-12-19] MEDS ORDERED: DOXY100C PO (01:02)
[2020-12-19 01:54] LABS: HEMATOCRIT 34.3 % (36.0-47.0); HEMOGLOBIN 9.6 g/dl (12.0-15.5); MEAN CORPUSCULAR HEMOGLOBIN 23.1 pg (27.0-33.0); MEAN CORPUSCULAR VOLUME 82.7 fl (80.0-96.0); PLATELET COUNT, AUTOMATED 182 10^3/uL (150-450); RED BLOOD COUNT 4.15 10^6/uL (4.00-5.40); WHITE BLOOD COUNT 7.5 10^3/uL (4.0-10.0)
[2020-12-19 02:17] LABS: AMPHETAMINES LEVEL URINE NEGATIVE (NEGATIVE); BARBITURATES URINE NEGATIVE (NEGATIVE); BENZODIAZEPINES URINE NEGATIVE (NEGATIVE); CANNABINOIDS URINE NEGATIVE (NEGATIVE); COCAINE METABOLITE URINE NEGATIVE (NEGATIVE); METHADONE URINE NEGATIVE (NEGATIVE); OPIATES URINE NEGATIVE (NEGATIVE); PHENCYCLIDINE URINE NEGATIVE (NEGATIVE)
[2020-12-19 02:35] LABS: ACETAMINOPHEN LEVEL < 2.0 UG/ML (10.0-30.0); ALBUMIN 3.1 GM/DL (3.2-5.2); ALT/SGPT 35 U/L (12-78); BILIRUBIN,DIRECT < 0.1 MG/DL (0.0-0.2); BILIRUBIN,TOTAL 0.1 MG/DL (0.2-1.0); BLOOD UREA NITROGEN 9 MG/DL (7-18); CALCIUM LEVEL 8.2 MG/DL (8.5-10.1); CARBON DIOXIDE LEVEL 30 MEQ/L (21-32); CHLORIDE LEVEL 110 MEQ/L (98-107); CREATININE FOR GFR 0.64 MG/DL (0.55-1.30); ETHYL ALCOHOL (ETHANOL) < 0.003 % (0.000-0.010); GLOMERULAR FILTRATION RATE > 60.0 (>60); GLUCOSE, FASTING 98 MG/DL (70-100); POTASSIUM SERUM 4.3 MEQ/L (3.5-5.1); SALICYLATE LEVEL < 1.7 MG/DL (5.0-30.0); SODIUM LEVEL 143 MEQ/L (136-145); TOTAL PROTEIN 6.1 GM/DL (6.4-8.2)
[2020-12-19 02:39] LABS: HCG, SERUM QUALITATIVE NEGATIVE (NEGATIVE)
[2020-12-19 09:42] VITALS: BP 126/68
[2020-12-19] MEDS ORDERED: FLUO20CA22 PO (10:00)
[2020-12-19] MEDS ORDERED: ARIP1TAB10 PO (10:00)
[2020-12-19] MEDS ORDERED: FERR324T2 PO (10:00)
== END 2020-12-19 10:38 | disposition home or self-care (01) ==
LOC: M ED 00:50
DX: F43.0 Acute stress reaction (principal); Z91.018 Allergy to other foods; Z88.0 Allergy status to penicillin; Z88.1 Allergy status to other antibiotic agents; Z88.2 Allergy status to sulfonamides; Z88.6 Allergy status to analgesic agent

== ENCOUNTER 2021-01-22 22:41 | Emergency (ER) | payer OTHER ==
[~2021-01-22 22:41] MED LIST changes: +DOXY100C PO; +FERR324T2 PO
[2021-01-23 00:25] LABS: HEMATOCRIT 34.5 % (36.0-47.0); HEMOGLOBIN 9.7 g/dl (12.0-15.5); MEAN CORPUSCULAR HEMOGLOBIN 22.7 pg (27.0-33.0); MEAN CORPUSCULAR HGB CONC 28.1 g/dl (32.0-36.5); MEAN CORPUSCULAR VOLUME 80.8 fl (80.0-96.0); PLATELET COUNT, AUTOMATED 198 10^3/uL (150-450); RED BLOOD COUNT 4.27 10^6/uL (4.00-5.40); WHITE BLOOD COUNT 7.3 10^3/uL (4.0-10.0)
[2021-01-23 00:35] LABS: HCG, SERUM QUALITATIVE NEGATIVE (NEGATIVE)
[2021-01-23 00:45] LABS: ACETAMINOPHEN LEVEL < 2.0 UG/ML (10.0-30.0); ALBUMIN 3.3 GM/DL (3.2-5.2); ALT/SGPT 29 U/L (12-78); BILIRUBIN,DIRECT < 0.1 MG/DL (0.0-0.2); BILIRUBIN,TOTAL 0.2 MG/DL (0.2-1.0); BLOOD UREA NITROGEN 14 MG/DL (7-18); CALCIUM LEVEL 8.4 MG/DL (8.5-10.1); CARBON DIOXIDE LEVEL 30 MEQ/L (21-32); CHLORIDE LEVEL 108 MEQ/L (98-107); CREATININE FOR GFR 0.66 MG/DL (0.55-1.30); ETHYL ALCOHOL (ETHANOL) 0.003 % (0.000-0.010); GLOMERULAR FILTRATION RATE > 60.0 (>60); GLUCOSE, FASTING 84 MG/DL (70-100); POTASSIUM SERUM 3.9 MEQ/L (3.5-5.1); SALICYLATE LEVEL < 1.7 MG/DL (5.0-30.0); SODIUM LEVEL 143 MEQ/L (136-145); TOTAL PROTEIN 6.5 GM/DL (6.4-8.2)
[2021-01-23 01:06] LABS: AMPHETAMINES LEVEL URINE NEGATIVE (NEGATIVE); BARBITURATES URINE NEGATIVE (NEGATIVE); BENZODIAZEPINES URINE NEGATIVE (NEGATIVE); CANNABINOIDS URINE NEGATIVE (NEGATIVE); COCAINE METABOLITE URINE NEGATIVE (NEGATIVE); METHADONE URINE NEGATIVE (NEGATIVE); OPIATES URINE NEGATIVE (NEGATIVE); PHENCYCLIDINE URINE NEGATIVE (NEGATIVE)
[2021-01-23 03:12] VITALS: BP 136/62
== END 2021-01-23 03:13 | disposition home or self-care (01) ==
LOC: M ED 22:41
DX: F60.3 Borderline personality disorder (principal); Z73.4 Inadequate social skills, not elsewhere classified; Z76.5 Malingerer [conscious simulation]; E66.01 Morbid (severe) obesity due to excess calories; Z88.0 Allergy status to penicillin; Z88.2 Allergy status to sulfonamides; Z88.8 Allergy status to other drugs, medicaments and biological substances; Z91.018 Allergy to other foods

== ENCOUNTER 2021-03-11 18:38 | Emergency (ER) | payer OTHER ==
[~2021-03-11] VITALS: Ht 167.6 cm; Wt 168.2 kg
[~2021-03-11 18:38] MED LIST changes: -DOXY100C37 PO; +DOXY1CAP62 PO; -OLAN10TA2 PO; +OLAN1TAB16 PO; +OLAN1TAB20 PO; -OLAN5TAB PO; +OMEP40CA4 PO; -OMEP40CA97 PO
[2021-03-11 20:50] LABS: HEMATOCRIT 34.2 % (36.0-47.0); HEMOGLOBIN 9.8 g/dl (12.0-15.5); MEAN CORPUSCULAR HEMOGLOBIN 23.4 pg (27.0-33.0); MEAN CORPUSCULAR HGB CONC 28.7 g/dl (32.0-36.5); MEAN CORPUSCULAR VOLUME 81.6 fl (80.0-96.0); PLATELET COUNT, AUTOMATED 182 10^3/uL (150-450); RED BLOOD COUNT 4.19 10^6/uL (4.00-5.40); WHITE BLOOD COUNT 9.1 10^3/uL (4.0-10.0)
[2021-03-11 21:17] LABS: AMPHETAMINES LEVEL URINE NEGATIVE (NEGATIVE); BARBITURATES URINE NEGATIVE (NEGATIVE); BENZODIAZEPINES URINE NEGATIVE (NEGATIVE); CANNABINOIDS URINE NEGATIVE (NEGATIVE); COCAINE METABOLITE URINE NEGATIVE (NEGATIVE); METHADONE URINE NEGATIVE (NEGATIVE); OPIATES URINE NEGATIVE (NEGATIVE); PHENCYCLIDINE URINE NEGATIVE (NEGATIVE)
[2021-03-11 21:24] LABS: HCG, SERUM QUALITATIVE NEGATIVE (NEGATIVE)
[2021-03-11 21:28] LABS: ACETAMINOPHEN LEVEL < 2.0 UG/ML (10.0-30.0); ALBUMIN 3.4 GM/DL (3.2-5.2); ALT/SGPT 32 U/L (12-78); BILIRUBIN,DIRECT < 0.1 MG/DL (0.0-0.2); BILIRUBIN,TOTAL 0.1 MG/DL (0.2-1.0); BLOOD UREA NITROGEN 8 MG/DL (7-18); CALCIUM LEVEL 8.4 MG/DL (8.5-10.1); CARBON DIOXIDE LEVEL 28 MEQ/L (21-32); CHLORIDE LEVEL 110 MEQ/L (98-107); CREATININE FOR GFR 0.71 MG/DL (0.55-1.30); ETHYL ALCOHOL (ETHANOL) < 0.003 % (0.000-0.010); GLOMERULAR FILTRATION RATE > 60.0 (>60); GLUCOSE, FASTING 88 MG/DL (70-100); POTASSIUM SERUM 4.1 MEQ/L (3.5-5.1); SALICYLATE LEVEL < 1.7 MG/DL (5.0-30.0); SODIUM LEVEL 141 MEQ/L (136-145); TOTAL PROTEIN 6.5 GM/DL (6.4-8.2)
[2021-03-12 00:16] LABS: RSV AMPLIFICATION NEGATIVE (NEGATIVE)
[2021-03-12 12:10] VITALS: BP 146/86
--- NOTE | 2021-03-13 04:21 | ECGEPIP ---
[facility] - ED Test Date: 2021-03-11 Pat Name: RAMYA MCCARTNEY Department: Room: - Gender: Female Manager Of Operations: FRED : 2000 Requested By: RAMONE Krishna Order Number: [id number] Reading MD: Jimi Meyer Measurements Intervals [place] Rate: 86 P: 32 MD: 126 QRS: 41 QRSD: 88 T: 36 QT: 374 QTc: 447 Interpretive Statements Normal sinus rhythm POOR R WAVE PROGRESSION SIMILAR TO 12/16/20 Electronically Signed on 03-13-2021 4:21:14 EDT by Jimi Meyer
== END 2021-03-12 12:18 ==
LOC: M ED 18:38
DX: R45.851 Suicidal ideations (principal); F31.9 Bipolar disorder, unspecified; F17.200 Nicotine dependence, unspecified, uncomplicated; Z88.0 Allergy status to penicillin; Z88.2 Allergy status to sulfonamides; Z88.8 Allergy status to other drugs, medicaments and biological substances; Z91.040 Latex allergy status

== ENCOUNTER 2021-07-01 15:02 | Inpatient (IN) | payer OTHER ==
[~2021-07-01] VITALS: Ht 167.6 cm; Wt 173.6 kg
[~2021-07-01 15:02] MED LIST changes: -CLIN150C15 PO; +CLIN150C17 PO; +DOXY-443 PO; -DOXY100C PO; +DOXY100C3 PO; -DOXY1CAP62 PO; -QUET50TA3 PO; +QUET50TA4 PO
[2021-07-01] MEDS ORDERED: NS 1,000 ML IV ONE (15:30)
[2021-07-01] MEDS ORDERED: LORazepam 2 MG/ML VIAL IV STA (15:31)
[2021-07-01] MEDS ORDERED: LORazepam 2 MG/ML VIAL As Ordered ONE (16:02)
[2021-07-01 16:05] LABS: HEMATOCRIT 34.2 % (36.0-47.0); HEMOGLOBIN 9.8 g/dl (12.0-15.5); MEAN CORPUSCULAR HEMOGLOBIN 23.3 pg (27.0-33.0); MEAN CORPUSCULAR HGB CONC 28.7 g/dl (32.0-36.5); MEAN CORPUSCULAR VOLUME 81.4 fl (80.0-96.0); PLATELET COUNT, AUTOMATED 181 10^3/uL (150-450); WHITE BLOOD COUNT 9.5 10^3/uL (4.0-10.0)
[2021-07-01 16:43] LABS: AMPHETAMINES LEVEL URINE NEGATIVE (NEGATIVE); BARBITURATES URINE NEGATIVE (NEGATIVE); BENZODIAZEPINES URINE NEGATIVE (NEGATIVE); CANNABINOIDS URINE POSITIVE (NEGATIVE); COCAINE METABOLITE URINE NEGATIVE (NEGATIVE); METHADONE URINE NEGATIVE (NEGATIVE); OPIATES URINE NEGATIVE (NEGATIVE); PHENCYCLIDINE URINE NEGATIVE (NEGATIVE)
[2021-07-01] MEDS ORDERED: ONDANSETRON 4MG/2ML VIAL IV ONE (19:20)
[2021-07-01] MEDS ORDERED: ACETAMINOPHEN 325 MG TAB PO ONE (22:25)
[2021-07-01 23:57] LABS: ACETAMINOPHEN LEVEL < 2.0 UG/ML (10.0-30.0); ALBUMIN 3.2 GM/DL (3.2-5.2); ALT/SGPT 29 U/L (12-78); BILIRUBIN,DIRECT 0.1 MG/DL (0.0-0.2); BILIRUBIN,TOTAL 0.4 MG/DL (0.2-1.0); BLOOD UREA NITROGEN 10 MG/DL (7-18); CALCIUM LEVEL 8.7 MG/DL (8.5-10.1); CARBON DIOXIDE LEVEL 29 MEQ/L (21-32); CHLORIDE LEVEL 103 MEQ/L (98-107); CREATININE FOR GFR 0.65 MG/DL (0.55-1.30); ETHYL ALCOHOL (ETHANOL) < 0.003 % (0.000-0.010); GLOMERULAR FILTRATION RATE > 60.0 (>60); GLUCOSE, FASTING 90 MG/DL (70-100); POTASSIUM SERUM 4.2 MEQ/L (3.5-5.1); SALICYLATE LEVEL < 1.7 MG/DL (5.0-30.0); SODIUM LEVEL 139 MEQ/L (136-145); TOTAL PROTEIN 6.6 GM/DL (6.4-8.2)
--- NOTE | 2021-07-02 08:44 | ECGEPIP ---
[facility] Test Date: 2021-07-02 Pat Name: RAMYA MCCARTNEY Department: Room: - Gender: Female E Commerce Analyst: ER : 2000 Requested By: PARTH Hutchinson Order Number: [id number] Reading MD: Vijay Webster Measurements Intervals [place] Rate: 66 P: 28 OR: 126 QRS: 27 QRSD: 90 T: 23 QT: 412 QTc: 431 Interpretive Statements normal sinus rhythm Within normal limits. No change from 03/11/21 Electronically Signed on 07-02-2021 8:43:56 EST by Vijay Webster
[2021-07-02] MEDS ORDERED: MAALOX 30 ML SUSP *UDC PO PRN (15:20)
[2021-07-02] MEDS ORDERED: ACETAMINOPHEN TAB 650MG DOSE (2X325MG) PO ONE (15:20)
[2021-07-02] MEDS ORDERED: MOM 30ML SUSPENSION UDC PO PRN (15:20)
[2021-07-02] MEDS ORDERED: NICOTINE 21MG/24HR 1 EA TRANSDERMAL TD PRN (15:20)
[2021-07-02] MEDS ORDERED: ONDANSETRON 4 MG TAB PO ONE (15:20)
[2021-07-02] MEDS ORDERED: HYDR50TA70 PO (15:53)
[2021-07-02] MEDS ORDERED: ONDA8TAB8 PO (15:53)
[2021-07-02] MEDS ORDERED: FLUO20CA22 PO (15:53)
[2021-07-02] MEDS ORDERED: ARIP1TAB6 PO ×2 (15:53)
[2021-07-02] MEDS ORDERED: HOME MED LIST COMPLETE! XX SCH (15:55)
[2021-07-02 15:59] LABS: RSV AMPLIFICATION NEGATIVE (NEGATIVE)
[2021-07-02 17:01] VITALS: BP 145/71
[2021-07-02] MEDS ORDERED: ONDANSETRON 4 MG ORAL DISINTEGRATING TAB PO PRN (20:20)
[2021-07-02] MEDS: ACETAMINOPHEN TAB 650MG DOSE (2X325MG) PO PRN (22:14)
[2021-07-03 06:39] VITALS: BP 119/69
[2021-07-03] MEDS: ACETAMINOPHEN TAB 650MG DOSE (2X325MG) PO PRN ×2 (11:09→19:47)
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
[2021-07-03] MEDS: FLUoxetine 20 MG CAP PO SCH (12:11)
[2021-07-03] MEDS: TOPIRAMATE (TopAMAX) 25 MG TAB PO SCH ×2 (12:11→20:59)
[2021-07-03 17:51] VITALS: BP 132/61
--- NOTE | 2021-07-03 19:37 | HPEPDOC ---
[facility] Medical History & Physical Date of Admission Jul 03, 2021 Date of Service: Jul 03, 2021 History and Physical CHIEF COMPLAINT: "I had suicide thoughts" HISTORY OF PRESENT ILLNESS: 21-year-old female with a past medical history of depression, anxiety, posttraumatic stress disorder, borderline personality disorder, antisocial personality disorder, and malingering presented to the emergency room department herself with complaints of hearing voices that were telling her to [place] down on the [place]. She reports smoking cannabis for the last 3 days and attributes the auditory hallucinations to this. At this junction, she complains of headaches which are not new. There are diffuse and was unable to get into details. She also reports having chronic hernia pain therefore like to remain on clear liquid diet. Otherwise, she denies chest pain, shortness of breath, palpitations, nausea, vomiting, problems with urination and bowel movements. PAST MEDICAL HISTORY: As mentioned above PAST SURGICAL HISTORY: Reports " a bunch of surgeries" without going into details SOCIAL HISTORY: Uses cannabis FAMILY HISTORY: Was not able to provide detailed family history ALLERGIES: Please see below. REVIEW OF SYSTEMS: 10 point review of system was negative except for what is noted in the HPI HOME MEDICATIONS: Please see below. PHYSICAL EXAMINATION: VITAL SIGNS: Please see below General: Lying in bed, no acute distress, obese Head/Neck/Throat: Trachea midline, mucous membranes moist Eyes: Sclera anicteric, no erythema or discharge appreciated bilaterally Thorax: Normal respiratory effort on room air, lungs clear to auscultation bilaterally, no wheezes/rales/rhonchi Cardiovascular: Normal rate, regular rhythm, normal S1, S2; no S3, S4, rubs/gallops/murmurs Abdomen: Bowel sounds present, soft/nontender/nondistended Genitourinary: No CVA tenderness, no Crowder in place Musculoskeletal: Moving all extremities, no edema Skin: Warm, dry Neurologic: AAOx3, speech fluent and goal-directed, no focal deficits, grossly intact LABORATORY DATA: See below. IMAGING: No imaging to review at this time MICROBIOLOGY: Please see below. ASSESSMENT/PLAN: #Chronic abdominal pain -Reports having hernia that needs to be repaired. She reports she will follow up as an outpatient with her primary care physician. She likes to remain on clear liquid diet at this time as this is helping. She did pass flatulence and is having bowel movements. #Headaches -Chronic. She was started on topiramate by psychiatry team. #Normocytic anemia -Hemoglobin is at baseline from previous admission. She should follow-up with her primary care physician for further work-up when she is deemed stable from psychiatric perspective. #Mood disorder -Defer management to psychiatric team. #DVT prophylaxis -Encourage ambulation Thank you for involving us in the care of . Medicine team will sign off at this time if needed please reconsult. History and physical examination done in the presence of female bar waiter/waitress. Vital Signs Vital Signs Date Time Temp Pulse Resp B/P (MAP) Pulse Ox O2 Delivery O2 Flow Rate FiO2 07/03/21 17:51 98.6 74 18 132/61 (84) 07/03/21 06:39 95 Room Air Home Medications Scheduled Aripiprazole (Aripiprazole) 5 Mg Tablet, 5 MG PO QAM Aripiprazole (Aripiprazole) 5 Mg Tablet, 2.5 MG PO QHS Fluoxetine Hcl (Fluoxetine HCl) 20 Mg Capsule, 20 MG PO DAILY Scheduled PRN Hydroxyzine HCl (Hydroxyzine HCl) 50 Mg Tablet, 50 MG PO Q6H PRN for ANXIETY Ondansetron (Ondansetron Odt) 8 Mg Tab.rapdis, 8 MG PO Q8H PRN for NAUSEA OR VOMITING Allergies Coded Allergies: Mushroom (Verified Allergy, Unknown, 12/06/20) Penicillins (Verified Allergy, Unknown, 12/06/20) Sulfa (Sulfonamide Antibiotics) (Verified Allergy, Unknown, 12/06/20) TURKEY (Verified Allergy, Unknown, 12/06/20) emtricitabine (Verified Allergy, Unknown, 12/06/20) latex (Verified Allergy, Unknown, 12/06/20) raltegravir (Verified Allergy, Unknown, 12/06/20) sulfamethoxazole (Verified Allergy, Unknown, 12/06/20) tomato (Verified Allergy, Unknown, 12/06/20) trimethoprim (Verified Allergy, Unknown, 12/06/20) haloperidol (Unverified Adverse Reaction, Intermediate, GI BLEED, 12/06/20) A-FIB/CHADSVASC A-FIB History Current/History of A-Fib/PAF?: No Age/Risk Factor Scoring CHADSVASC: CHADSVASC Response (Comments) Value Age Risk Factor Age < 65 years old 0 Gender Risk Factor Female 1 Hx of CHF No 0 Hx of HTN Yes 1 Hx of Stroke/TIA/or VTE No 0 Hx of Diabetes No 0 Hx of Vascular Disease No 0 Total 2 KRYSTEN ESPAÑA M.D. Jul 03, 2021 19:37
[2021-07-03] MEDS: traZODone 50 MG TAB PO PRN (20:58)
[2021-07-03] MEDS: ARIPiprazole 2 MG TAB PO SCH (20:59)
[2021-07-04] MEDS: ACETAMINOPHEN TAB 650MG DOSE (2X325MG) PO PRN ×2 (02:54→20:08)
[2021-07-04 06:37] VITALS: BP 146/66
[2021-07-04 08:06] LABS: CHOLESTEROL RISK RATIO 6.093 (<5)
[2021-07-04] MEDS: FLUoxetine 20 MG CAP PO SCH (09:07)
[2021-07-04] MEDS: TOPIRAMATE (TopAMAX) 25 MG TAB PO SCH ×2 (09:07→20:09)
[2021-07-04 19:02] VITALS: BP 131/73
[2021-07-04] MEDS: traZODone 50 MG TAB PO PRN (20:08)
[2021-07-04] MEDS: ARIPiprazole 2 MG TAB PO SCH (20:09)
[2021-07-05 06:38] VITALS: BP 124/78
[2021-07-05] MEDS: TOPIRAMATE (TopAMAX) 25 MG TAB PO SCH ×2 (08:55→21:10)
[2021-07-05] MEDS: FLUoxetine 20 MG CAP PO SCH (08:56)
[2021-07-05] MEDS: ACETAMINOPHEN TAB 650MG DOSE (2X325MG) PO PRN ×2 (08:56→21:10)
[2021-07-05 18:44] VITALS: BP 134/76
[2021-07-05] MEDS: ARIPiprazole 2 MG TAB PO SCH (21:10)
[2021-07-05] MEDS: traZODone 50 MG TAB PO PRN (21:10)
[2021-07-06 06:24] VITALS: BP 130/88
[2021-07-06] MEDS: TOPIRAMATE (TopAMAX) 25 MG TAB PO SCH (08:34)
[2021-07-06] MEDS: FLUoxetine 20 MG CAP PO SCH (08:35)
[2021-07-06] MEDS ORDERED: TRAZ-252 PO (08:46)
[2021-07-06] MEDS ORDERED: ABIL1TAB13 PO (08:46)
[2021-07-06] MEDS ORDERED: FLUO20CA22 PO (08:46)
[2021-07-06] MEDS ORDERED: TOPA1TAB PO (08:46)
[2021-07-06] MEDS ORDERED: NICO21PAT TD (08:46)
[2021-07-06] MEDS ORDERED: ARIP1TAB6 PO (08:46)
--- NOTE | 2021-07-06 10:39 | MHDSPDOC ---
[facility] Discharge Summary Discharge Summary DATE OF ADMISSION: Jul 02, 2021 at 15:17 DATE OF DISCHARGE: July 06, 2021 Discharge diagnoses: Posttraumatic stress disorder Somatic symptom disorder, Borderline personality disorder Cannabis use disorder Reason for admission: Patient is a 21 -year-old , female, who has a past history of depression, anxiety, PTSD, borderline personality disorder, antisocial personality disorder, malingering with multiple past admissions last time in November 2020, who self presents to emergency department, states she can hear voices in context of smoking cannabis for last 3 days of being off her medications including Abilify and Prozac, per chart review and patient states she had suicidal thoughts wanting to live in road, but today is not feeling suicidal to the same extent, states she takes Prozac 20 mg p.o. daily and Abilify 5 mg a.m. 1.5 mg nightly, reports having headaches and multiple somatic complaints, reports can be anxious at times I think that there is things medically wrong with her with physical sensations, states she just came to the area to visit family which was a mistake, and that she has a fianc down in [place] whom she has been with for 7 months, patient is agreeable to being started on medications, stabilized and hopefully discharged early next week. Labs show likely iron deficiency anemia, patient reportedly is only been on clear liquid diet in context of multiple reported somatic GI complaints, reports has headache and is agreeable to starting topiramate 50 mg twice daily, reportedly has taken before without allergy or side effects. Also agreeable to starting her Prozac, and starting Abilify 5 mg every morning, 2 mg nightly. Vital signs: See below Consultants involved: See medical H&P by hospitalist Treatment and progress on the unit: Patient was admitted to the [facility] on a .39 legal status and was afforded the following treatment modalities: 1. Individual therapy 2. Group therapy 3. Medication management 4. Milieu therapy 5. Safe environment Hospital course: Patient was admitted to the [facility] on a 939 legal status. Was medically cleared prior to coming up to the [facility]. Toxicology screen is positive for cannabis, was educated on the risks of cannabis use and other drug use including worsening mood, anxiety, psychotic symptoms. She was restarted on medications including fluoxetine 20 mg p.o. daily, Abilify 5 mg every morning, increase to 2 mg nightly, patient found medications beneficial and tolerated the m well. Was started on topiramate 50 mg p.o. twice daily for headaches, with reported reduction of migraines per patient. Reported she no longer heard voices, mood improved, no longer was suicidal since starting medications and felt ready for discharge. Patient reports multiple somatic complaints, has history of getting multiple medical tests and having concerns about multiple m ultiple illnesses and physical complaints during verified, was encouraged to follow-up without patient primary doctor routinely to address medical concerns. denies mood anxiety and intrusive thoughts which improved with treatment. Patient attended groups daily during stay. Patient symptoms improved with treatment. On day of discharge patient denied depression, anxiety, insomnia, suicidal or homicidal ideations intent or plan, hallucinations, delusions. Patient was discharged home with follow-up. Patient felt safe for discharge. Was offered continued stay on voluntary admission but refused. Discharge assessment: On today's interview patient is alert and oriented, dressed appropriately. Hygiene and grooming is well-kept. Smiles on approach and is pleasant and engaged on interview. Denies depression and anxiety. Denies suicidal homicidal ideation, intent or planning. Denies and is not observed with albaro or psychotic symptoms of delusions, hallucinations, bizarre thinking, obsessions, paranoia, ruminations, illogical thoughts, flight of ideas or having poor insight or judgment. Patient has normal mentation, declines further hospitalization of voluntary status and meets criteria for discharge today, patient encouraged to return the hospital if symptoms worsen or change and encouraged to call unit if they feel they need provider's questions to be answered or help with medications or care. Mental status: General Appearance: Mildly unkempt, hospital scubs/clothing, other (BMI), appe ars somewhat older than stated age, good eye contact Build: overweight Demeanor: Relaxed Eye Contact: avoidant Activity: Normal Behavior: cooperative, calm Speech: rapid, spontaneous Mood: "good" Affect: Calmer, less anxious, full, laughs and smiles at times Thought Process: logical/linear Thought Content (Delusions): none reported Thought Content (Other): Denies suicidal ideation, intent or plan. Denies homicidal ideation, intent or plan. Thought Content (Aggressive): none reported Perception (Hallucinations): none reported Perception (Other): none reported Cognition (Impairment of): none reported Cognition(Intelligence Est.): average Oriented: Awake, Alert, Oriented times three Insight: fair Judgment: fair, improved Psychosis: Denies Medications on discharge: -see medication reconciliation: CSSRS on discharge: Wish to be : No nonspecific active suicidal thoughts: No lifetime attempts: One-time overdose on ibuprofen in 2019 interrupted attempts: 0 aborted attempts: 0 preparatory acts or behavior: None Taking into consideration safety state, status, safety plan, protective factors, modifiable, non-modifiable risk factors patient is at low risk on discharge for suicide according to [facility] suicide evaluation. PLAN/FOLLOWUP ARRANGEMENTS: Follow Up Care Education Label * Medical * Medical Follow Up [facility] * Established With This Provider Yes * Therapist NATIVIDAD MACK * Date Jul 14, 2021 * Time 14:40 * Address of Clinic or Practice [address] [place] [address] * Follow Up Care Education Label * Mental Health Appt 1 * Mental Health [facility] WALDRON * Established With This Provider Yes * Therapist ROSE * Date Jul 15, 2021 * Time 09:00 * Address of Clinic or Practice [address] [place] [address], [place] [address] * The amount of time spent in the coordination of care for this patient was approximately 35 minutes. ETOH/Disorder Med Rx ETOH/DRUG DISORDER RX: Offrd @ d/c & pt refused Vital Signs/I&Os Vital Signs Date Time Temp Pulse Resp B/P (MAP) Pulse Ox O2 Delivery O2 Flow Rate FiO2 07/06/21 06:24 98.8 83 20 130/88 (102) 100 Room Air Medications Scheduled Aripiprazole (Aripiprazole) 5 Mg Tablet, 5 MG PO QAM for mood stabilization, #7 Aripiprazole (Abilify) 2 Mg Tablet, 2 MG PO QHS for mood stabilization, #7 Fluoxetine Hcl (Fluoxetine HCl) 20 Mg Capsule, 20 MG PO DAILY for mood, #7 Topiramate (Topamax) 25 Mg Tablet, 50 MG PO BID for migraines, #14 Scheduled PRN Hydroxyzine HCl (Hydroxyzine HCl) 50 Mg Tablet, 50 MG PO Q6H PRN for ANXIETY, (R eported) Nicotine (Nicotine Patch) 21 Mg Patch.td24, 1 PATCH TD DAILY PRN for NICOTINE WITHDRAWAL, #7 Ondansetron (Ondansetron Odt) 8 Mg Tab.rapdis, 8 MG PO Q8H PRN for NAUSEA OR VOMITING, (Reported) Trazodone HCl (Trazodone HCl) 50 Mg Tablet, 50 MG PO QHSP PRN for INSOMNIA, #7 Allergies Coded Allergies: Mushroom (Verified Allergy, Unknown, 12/06/20) Penicillins (Verified Allergy, Unknown, 12/06/20) Sulfa (Sulfonamide Antibiotics) (Verified Allergy, Unknown, 12/06/20) TURKEY (Verified Allergy, Unknown, 12/06/20) emtricitabine (Verified Allergy, Unknown, 12/06/20) latex (Verified Allergy, Unknown, 12/06/20) raltegravir (Verified Allergy, Unknown, 12/06/20) sulfamethoxazole (Verified Allergy, Unknown, 12/06/20) tomato (Verified Allergy, Unknown, 12/06/20) trimethoprim (Verified Allergy, Unknown, 12/06/20) haloperidol (Unverified Adverse Reaction, Intermediate, GI BLEED, 12/06/20) KATHERIN SCRUGGS MD Jul 06, 2021 10:39
[2021-07-06] MEDS: ACETAMINOPHEN TAB 650MG DOSE (2X325MG) PO PRN (11:19)
--- NOTE | 2021-07-07 10:02 | MHIPN ---
[facility] PROGRESS NOTE DATE: 07/04/2021 VITAL SIGNS: Blood pressure 146/66, pulse 70, temperature 99.1. This is a video assessment, she is in the inpatient psychiatry unit at [facility], I am at home, she is seen in the presence of staff. We are doing this because of the pandemic. CHIEF COMPLAINT: "I want to leave." SUBJECTIVE: Seen for followup, says wants to eat, and that she is on a liquid diet, says has been feeling better, and did not throw up, has kept her medications down. Says slept well, denies any suicidal thoughts or intents. MENTAL STATUS EXAMINATION: Cooperative, mildly irritable, insistent on eating, no agitation as such, coherent. Denies suicidal thoughts or intents, no homicidal ideas or intents, no overt psychotic features elicited given this brief assessment. Judgment and insight remain compromised. ASSESSMENT: Posttraumatic stress disorder. Borderline personality disorder. Cannabis use disorder. PLAN: Continue current care, observations, and I would suggest deferring to the hospitalist, regarding the patient resuming a solid diet. Will continue the rest of the observations.
--- NOTE | 2021-07-07 10:49 | MHIPN ---
[facility] PROGRESS NOTE DATE: 07/05/2021 VITAL SIGNS: Blood pressure 124/78, pulse 64, temperature 99.7. This is a video assessment, we are doing this because of the pandemic, she is in the inpatient unit, she is seen in the presence of staff, I am at home. CHIEF COMPLAINT: Says feels okay. SUBJECTIVE: Seen for followup, indicates had felt frustrated yesterday, but better today, says slept reasonably well. MENTAL STATUS EXAMINATION: Neat, somewhat guarded, possibly disinterested, no agitation, no psychomotor retardation, affect is restricted in range. Denies any suicidal thoughts or intents at present, no homicidal ideas or intents. Cognition grossly intact. Judgment and insight remain compromised. ASSESSMENT: Posttraumatic stress disorder. PLAN: Continue current care, and observations. She is also pleased that she is eating solid food again. She will be seeing the assigned clinicians tomorrow, and further recommendations will be made.
== END 2021-07-06 13:31 | disposition home or self-care (01) | DRG 755 ==
LOC: M ED 15:02 → EDBD 07-02 15:17 → M ED INP 07-02 15:17 → M PSY 07-02 16:57
PROVIDERS: ADMIT Student in an Organized Health Care Education/Training Program; ATTEND Student in an Organized Health Care Education/Training Program
DX: F43.10 Post-traumatic stress disorder, unspecified (principal); F45.1 Undifferentiated somatoform disorder; F60.3 Borderline personality disorder; F12.10 Cannabis abuse, uncomplicated; F41.9 Anxiety disorder, unspecified; F32.A Depression, unspecified; R45.851 Suicidal ideations; R44.0 Auditory hallucinations; Z62.810 Personal history of physical and sexual abuse in childhood; Z79.899 Other long term (current) drug therapy; Z88.2 Allergy status to sulfonamides; Z88.0 Allergy status to penicillin; Z88.8 Allergy status to other drugs, medicaments and biological substances; Z91.040 Latex allergy status; Z91.018 Allergy to other foods; R51.9 Headache, unspecified; D64.9 Anemia, unspecified; R10.9 Unspecified abdominal pain; Z20.822 Contact with and (suspected) exposure to COVID-19

== ENCOUNTER 2022-01-26 20:07 | Emergency (ER) | payer OTHER ==
[~2022-01-26] VITALS: Ht 167.6 cm; Wt 118.9 kg
[~2022-01-26 20:07] MED LIST changes: +ABIL1TAB13 PO; +ARIP1TAB6 PO; +BENZ1LOZ10 PO; -CEFD1CAP8; +CEFD300C41; -CEPA1LOZ2 PO; -D31000TA2 PO; +FLUO-96 PO; -FLUO20CA20 PO; -HALO5TA PO; +HALO5TAB33 PO; +HYDR50TA70 PO; -LATU40TA; -LATU40TA PO; +LATU40TA2; +LATU40TA2 PO; +OMEP-173; -OMEP-218; +ONDA8TAB8 PO; +TOPA1TAB PO; +VITA100093 PO
[2022-01-26 20:26] VITALS: BP 123/75
== END 2022-01-26 23:24 | disposition home or self-care (01) ==
LOC: M ED 20:07
DX: Z04.6 Encounter for general psychiatric examination, requested by authority (principal); F33.9 Major depressive disorder, recurrent, unspecified; F41.9 Anxiety disorder, unspecified; F43.10 Post-traumatic stress disorder, unspecified; F60.3 Borderline personality disorder; E66.9 Obesity, unspecified; Z79.899 Other long term (current) drug therapy; Z88.0 Allergy status to penicillin; Z88.1 Allergy status to other antibiotic agents; Z88.2 Allergy status to sulfonamides; Z88.8 Allergy status to other drugs, medicaments and biological substances; Z91.018 Allergy to other foods; Z91.040 Latex allergy status

== ENCOUNTER 2022-03-12 15:46 | Emergency (ER) | payer OTHER ==
[~2022-03-12] VITALS: Ht 167.6 cm; Wt 158.7 kg
[~2022-03-12 15:46] MED LIST changes: +ETON68IM SC; -NEXP1IMP SC
[2022-03-12 15:51] VITALS: BP 109/55
[2022-03-13] MEDS ORDERED: METF500T13 PO (04:15)
[2022-03-13] MEDS ORDERED: DIVA500T94 PO (04:15)
[2022-03-13] MEDS ORDERED: LEXA1TAB PO (04:15)
[2022-03-13] MEDS ORDERED: ARIP1TAB6 PO (04:16)
[2022-03-13] MEDS ORDERED: TOPI25TA10 PO (04:17)
== END 2022-03-12 18:03 | disposition left against medical advice (07) ==
LOC: EDBD 15:46 → M ED 16:34
DX: Z53.29 Procedure and treatment not carried out because of patient's decision for other reasons (principal)

== ENCOUNTER 2022-03-12 19:44 | Emergency (ER) | payer OTHER ==
[~2022-03-12] VITALS: Ht 167.6 cm; Wt 117.0 kg
[2022-03-12 20:11] LABS: HEMATOCRIT 36.4 % (36.0-47.0); HEMOGLOBIN 10.9 g/dl (12.0-15.5); MEAN CORPUSCULAR HEMOGLOBIN 24.3 pg (27.0-33.0); MEAN CORPUSCULAR HGB CONC 29.9 g/dl (32.0-36.5); MEAN CORPUSCULAR VOLUME 81.1 fl (80.0-96.0); PLATELET COUNT, AUTOMATED 194 10^3/uL (150-450); RED BLOOD COUNT 4.49 10^6/uL (4.00-5.40); WHITE BLOOD COUNT 8.8 10^3/uL (4.0-10.0)
[2022-03-12 20:42] LABS: AMPHETAMINES LEVEL URINE NEGATIVE (NEGATIVE); BARBITURATES URINE NEGATIVE (NEGATIVE); BENZODIAZEPINES URINE NEGATIVE (NEGATIVE); CANNABINOIDS URINE NEGATIVE (NEGATIVE); COCAINE METABOLITE URINE NEGATIVE (NEGATIVE); METHADONE URINE NEGATIVE (NEGATIVE); OPIATES URINE NEGATIVE (NEGATIVE); PHENCYCLIDINE URINE NEGATIVE (NEGATIVE)
[2022-03-12 20:48] LABS: RSV AMPLIFICATION NEGATIVE (NEGATIVE)
[2022-03-12 20:51] LABS: ACETAMINOPHEN LEVEL < 2.0 UG/ML (10.0-30.0); ALBUMIN 3.5 GM/DL (3.2-5.2); ALT/SGPT 28 U/L (12-78); BILIRUBIN,DIRECT < 0.1 MG/DL (0.0-0.2); BILIRUBIN,TOTAL 0.2 MG/DL (0.2-1.0); BLOOD UREA NITROGEN 9 MG/DL (7-18); CALCIUM LEVEL 9.1 MG/DL (8.5-10.1); CARBON DIOXIDE LEVEL 28 MEQ/L (21-32); CHLORIDE LEVEL 109 MEQ/L (98-107); CREATININE FOR GFR 0.77 MG/DL (0.55-1.30); ETHYL ALCOHOL (ETHANOL) 0.004 % (0.000-0.010); GLOMERULAR FILTRATION RATE > 60.0 (>60); GLUCOSE, FASTING 107 MG/DL (70-100); POTASSIUM SERUM 4.2 MEQ/L (3.5-5.1); SALICYLATE LEVEL < 1.7 MG/DL (5.0-30.0); SODIUM LEVEL 143 MEQ/L (136-145); TOTAL PROTEIN 6.7 GM/DL (6.4-8.2)
[2022-03-13] MEDS ORDERED: DIVA500T94 PO (04:15)
[2022-03-13] MEDS ORDERED: METF500T13 PO (04:15)
[2022-03-13] MEDS ORDERED: LEXA1TAB PO (04:15)
[2022-03-13] MEDS ORDERED: ARIP1TAB6 PO (04:16)
[2022-03-13] MEDS ORDERED: TOPI25TA10 PO (04:17)
[2022-03-13] MEDS ORDERED: HOME MED LIST COMPLETE! XX SCH (04:20)
[2022-03-13 08:34] LABS: URINE PREG TEST NEGATIVE (NEGATIVE)
[2022-03-13 08:42] LABS: VALPROIC ACID (DEPAKOTE) 30.5 UG/ML (50.0-100.0)
[2022-03-13] MEDS: ESCITALOPRAM OXALATE 10 MG TAB (LEXAPRO) PO SCH (09:00)
[2022-03-13] MEDS: metFORMIN (GLUCOPHAGE) 500MG TAB PO SCH (10:25)
[2022-03-13] MEDS: DIVALPROEX 500 MG TAB PO SCH (10:25)
[2022-03-13] MEDS: TOPIRAMATE (TopAMAX) 25 MG TAB PO SCH ×2 (10:25→20:26)
[2022-03-14] MEDS ORDERED: ESCITALOPRAM OXALATE 10 MG TAB (LEXAPRO) PO SCH (09:00)
[2022-03-14] MEDS: metFORMIN (GLUCOPHAGE) 500MG TAB PO SCH (09:37)
[2022-03-14] MEDS: ESCITALOPRAM OXALATE 10 MG TAB (LEXAPRO) PO SCH (09:37)
[2022-03-14] MEDS: DIVALPROEX 500 MG TAB PO SCH (09:37)
[2022-03-14] MEDS: TOPIRAMATE (TopAMAX) 25 MG TAB PO SCH (09:38)
[2022-03-14 19:27] VITALS: BP 127/78
== END 2022-03-14 19:29 | disposition home or self-care (01) ==
LOC: M ED 19:44
DX: F60.3 Borderline personality disorder (principal); Z76.5 Malingerer [conscious simulation]; F31.9 Bipolar disorder, unspecified; F79 Unspecified intellectual disabilities; Z88.0 Allergy status to penicillin; Z88.1 Allergy status to other antibiotic agents; Z88.2 Allergy status to sulfonamides; Z88.8 Allergy status to other drugs, medicaments and biological substances; Z91.018 Allergy to other foods; Z91.040 Latex allergy status; Z79.899 Other long term (current) drug therapy

== ENCOUNTER 2022-03-30 02:44 | Emergency (ER) | payer OTHER ==
[~2022-03-30] VITALS: Ht 167.6 cm; Wt 102.7 kg
[~2022-03-30 02:44] MED LIST changes: +DIVA500T94 PO; +TOPI25TA10 PO
[2022-03-30 02:59] VITALS: BP 133/82
[2022-03-30] MEDS ORDERED: QUET1TAB17 (06:36)
[2022-03-30] MEDS ORDERED: CEFD300C41 PO (06:36)
[2022-03-30] MEDS ORDERED: PANT40TA29 (06:36)
[2022-03-30] MEDS ORDERED: PRAZ1CAP (06:36)
== END 2022-03-30 04:25 | disposition left against medical advice (07) ==
LOC: M ED 02:44 → EDBD 02:44 → M ED 04:25
DX: Z53.29 Procedure and treatment not carried out because of patient's decision for other reasons (principal)

== ENCOUNTER 2022-03-30 06:12 | Emergency (ER) | payer OTHER ==
[~2022-03-30] VITALS: Ht 167.6 cm; Wt 101.4 kg
[2022-03-30] MEDS ORDERED: PRAZ1CAP (06:36)
[2022-03-30] MEDS ORDERED: CEFD300C41 PO (06:36)
[2022-03-30] MEDS ORDERED: PANT40TA29 (06:36)
[2022-03-30] MEDS ORDERED: QUET1TAB17 (06:36)
[2022-03-30 08:08] LABS: HEMOGLOBIN 10.2 g/dl (12.0-15.5); MEAN CORPUSCULAR HEMOGLOBIN 24.3 pg (27.0-33.0); MEAN CORPUSCULAR HGB CONC 29.1 g/dl (32.0-36.5); MEAN CORPUSCULAR VOLUME 83.3 fl (80.0-96.0); PLATELET COUNT, AUTOMATED 110 10^3/uL (150-450)
[2022-03-30 08:14] LABS: RSV AMPLIFICATION NEGATIVE (NEGATIVE)
[2022-03-30 08:16] LABS: AMPHETAMINES LEVEL URINE NEGATIVE (NEGATIVE); BARBITURATES URINE NEGATIVE (NEGATIVE); BENZODIAZEPINES URINE NEGATIVE (NEGATIVE); CANNABINOIDS URINE NEGATIVE (NEGATIVE); COCAINE METABOLITE URINE NEGATIVE (NEGATIVE); METHADONE URINE NEGATIVE (NEGATIVE); OPIATES URINE NEGATIVE (NEGATIVE); PHENCYCLIDINE URINE NEGATIVE (NEGATIVE)
[2022-03-30 08:26] LABS: HCG, SERUM QUALITATIVE NEGATIVE (NEGATIVE)
[2022-03-30 08:49] LABS: ACETAMINOPHEN LEVEL < 2.0 UG/ML (10.0-30.0); ALBUMIN 3.3 GM/DL (3.2-5.2); ALT/SGPT 32 U/L (12-78); BILIRUBIN,DIRECT 0.1 MG/DL (0.0-0.2); BILIRUBIN,TOTAL 0.1 MG/DL (0.2-1.0); BLOOD UREA NITROGEN 9 MG/DL (7-18); CALCIUM LEVEL 8.7 MG/DL (8.5-10.1); CARBON DIOXIDE LEVEL 28 MEQ/L (21-32); CHLORIDE LEVEL 111 MEQ/L (98-107); CREATININE FOR GFR 0.73 MG/DL (0.55-1.30); ETHYL ALCOHOL (ETHANOL) < 0.003 % (0.000-0.010); GLOMERULAR FILTRATION RATE > 60.0 (>60); GLUCOSE, FASTING 90 MG/DL (70-100); POTASSIUM SERUM 4.1 MEQ/L (3.5-5.1); SALICYLATE LEVEL < 1.7 MG/DL (5.0-30.0); SODIUM LEVEL 141 MEQ/L (136-145); TOTAL PROTEIN 6.4 GM/DL (6.4-8.2)
[2022-03-30 09:26] VITALS: BP 122/82
== END 2022-03-30 09:28 | disposition home or self-care (01) ==
LOC: M ED 06:12
DX: F43.20 Adjustment disorder, unspecified (principal); J45.909 Unspecified asthma, uncomplicated; G43.909 Migraine, unspecified, not intractable, without status migrainosus; Z79.899 Other long term (current) drug therapy; Z88.0 Allergy status to penicillin; Z88.1 Allergy status to other antibiotic agents; Z88.2 Allergy status to sulfonamides; Z88.8 Allergy status to other drugs, medicaments and biological substances; Z91.018 Allergy to other foods; Z91.040 Latex allergy status

== ENCOUNTER 2022-04-16 11:59 | Emergency (ER) | payer OTHER ==
[~2022-04-16] VITALS: Ht 167.6 cm; Wt 101.4 kg
[~2022-04-16 11:59] MED LIST changes: +CEFD300C41 PO; +QUET1TAB17
[2022-04-16 14:04] LABS: AMPHETAMINES LEVEL URINE NEGATIVE (NEGATIVE); BARBITURATES URINE NEGATIVE (NEGATIVE); BENZODIAZEPINES URINE NEGATIVE (NEGATIVE); CANNABINOIDS URINE NEGATIVE (NEGATIVE); COCAINE METABOLITE URINE NEGATIVE (NEGATIVE); METHADONE URINE NEGATIVE (NEGATIVE); OPIATES URINE NEGATIVE (NEGATIVE); PHENCYCLIDINE URINE NEGATIVE (NEGATIVE)
[2022-04-16 14:11] LABS: RSV AMPLIFICATION NEGATIVE (NEGATIVE)
[2022-04-16 14:41] LABS: HEMATOCRIT 34.7 % (36.0-47.0); HEMOGLOBIN 10.2 g/dl (12.0-15.5); MEAN CORPUSCULAR HGB CONC 29.4 g/dl (32.0-36.5); MEAN CORPUSCULAR VOLUME 81.6 fl (80.0-96.0); PLATELET COUNT, AUTOMATED 198 10^3/uL (150-450); RED BLOOD COUNT 4.25 10^6/uL (4.00-5.40); WHITE BLOOD COUNT 7.7 10^3/uL (4.0-10.0)
[2022-04-16 15:20] LABS: ACETAMINOPHEN LEVEL < 2.0 UG/ML (10.0-30.0); ALBUMIN 3.3 GM/DL (3.2-5.2); ALT/SGPT 38 U/L (12-78); BILIRUBIN,DIRECT 0.1 MG/DL (0.0-0.2); BILIRUBIN,TOTAL 0.3 MG/DL (0.2-1.0); BLOOD UREA NITROGEN 9 MG/DL (7-18); CALCIUM LEVEL 8.8 MG/DL (8.5-10.1); CARBON DIOXIDE LEVEL 22 MEQ/L (21-32); CHLORIDE LEVEL 108 MEQ/L (98-107); CREATININE FOR GFR 0.87 MG/DL (0.55-1.30); ETHYL ALCOHOL (ETHANOL) < 0.003 % (0.000-0.010); GLOMERULAR FILTRATION RATE > 60.0 (>60); GLUCOSE, FASTING 118 MG/DL (70-100); POTASSIUM SERUM 3.5 MEQ/L (3.5-5.1); SALICYLATE LEVEL < 1.7 MG/DL (5.0-30.0); SODIUM LEVEL 140 MEQ/L (136-145); THYROID STIMULATING HORMONE 0.731 uIU/ML (0.358-3.740); TOTAL PROTEIN 6.7 GM/DL (6.4-8.2)
[2022-04-16] MEDS ORDERED: IBUPROFEN 600MG TAB PO ONE (17:25)
[2022-04-16] MEDS ORDERED: QUET50TA4 PO (20:37)
[2022-04-16] MEDS ORDERED: METF500T13 PO (20:37)
[2022-04-16] MEDS ORDERED: SERT25TA21 PO (20:37)
[2022-04-16] MEDS ORDERED: MED REC COMMENT (20:38)
[2022-04-16] MEDS ORDERED: HOME MED LIST COMPLETE! XX SCH (20:40)
[2022-04-16] MEDS ORDERED: ACETAMINOPHEN TAB 650MG DOSE (2X325MG) PO ONE (23:40)
[2022-04-16] MEDS ORDERED: QUEtiapine FUMARATE 50MG TAB PO ONE (23:40)
[2022-04-17 09:43] LABS: HCG, SERUM QUALITATIVE NEGATIVE (NEGATIVE)
[2022-04-17] MEDS: IBUPROFEN 600MG TAB PO PRN ×2 (12:21→20:26)
[2022-04-17] MEDS ORDERED: LORazepam 2 MG TAB PO STA (14:59)
[2022-04-17] MEDS ORDERED: QUEtiapine FUMARATE 50MG TAB PO SCH (21:00)
[2022-04-17] MEDS ORDERED: PRAZOSIN 1 MG CAP PO SCH (21:00)
[2022-04-18] MEDS: IBUPROFEN 600MG TAB PO PRN (08:01)
[2022-04-18] MEDS ORDERED: SERTRALINE HCL 25 MG TABLET PO SCH (09:00)
[2022-04-18] MEDS ORDERED: PANTOPRAZOLE 40MG TAB (PROTONIX) PO SCH (09:00)
[2022-04-18] MEDS ORDERED: metFORMIN (GLUCOPHAGE) 500MG TAB PO SCH (09:00)
[2022-04-18 14:45] VITALS: BP 131/63
== END 2022-04-18 15:04 | disposition home or self-care (01) ==
LOC: M ED 11:59
DX: F32.A Depression, unspecified (principal); S93.401A Sprain of unspecified ligament of right ankle, initial encounter; J45.909 Unspecified asthma, uncomplicated; F31.9 Bipolar disorder, unspecified; F41.9 Anxiety disorder, unspecified; F43.10 Post-traumatic stress disorder, unspecified; G43.909 Migraine, unspecified, not intractable, without status migrainosus; Z87.09 Personal history of other diseases of the respiratory system; Z88.0 Allergy status to penicillin; Z88.1 Allergy status to other antibiotic agents; Z88.2 Allergy status to sulfonamides; Z88.8 Allergy status to other drugs, medicaments and biological substances; Z91.018 Allergy to other foods; Z91.040 Latex allergy status; Z79.899 Other long term (current) drug therapy; Z79.84 Long term (current) use of oral hypoglycemic drugs

== ENCOUNTER 2022-04-19 17:50 | Inpatient (IN) | payer OTHER ==
[~2022-04-19 17:50] MED LIST changes: +SERT25TA21 PO
[2022-04-19 19:04] LABS: HEMATOCRIT 33.7 % (36.0-47.0); HEMOGLOBIN 10.1 g/dl (12.0-15.5); PLATELET COUNT, AUTOMATED 196 10^3/uL (150-450); RED BLOOD COUNT 4.21 10^6/uL (4.00-5.40); WHITE BLOOD COUNT 10.4 10^3/uL (4.0-10.0)
[2022-04-19 19:26] LABS: HCG, SERUM QUALITATIVE NEGATIVE (NEGATIVE)
[2022-04-19 19:35] LABS: AMPHETAMINES LEVEL URINE NEGATIVE (NEGATIVE); BARBITURATES URINE NEGATIVE (NEGATIVE); BENZODIAZEPINES URINE NEGATIVE (NEGATIVE); CANNABINOIDS URINE NEGATIVE (NEGATIVE); COCAINE METABOLITE URINE NEGATIVE (NEGATIVE); METHADONE URINE NEGATIVE (NEGATIVE); OPIATES URINE NEGATIVE (NEGATIVE); PHENCYCLIDINE URINE NEGATIVE (NEGATIVE)
[2022-04-19 19:44] LABS: ACETAMINOPHEN LEVEL < 2.0 UG/ML (10.0-30.0); ALBUMIN 3.3 GM/DL (3.2-5.2); ALT/SGPT 31 U/L (12-78); BILIRUBIN,DIRECT < 0.1 MG/DL (0.0-0.2); BILIRUBIN,TOTAL 0.1 MG/DL (0.2-1.0); BLOOD UREA NITROGEN 7 MG/DL (7-18); CALCIUM LEVEL 8.6 MG/DL (8.5-10.1); CARBON DIOXIDE LEVEL 26 MEQ/L (21-32); CHLORIDE LEVEL 108 MEQ/L (98-107); CREATININE FOR GFR 0.68 MG/DL (0.55-1.30); ETHYL ALCOHOL (ETHANOL) < 0.003 % (0.000-0.010); GLOMERULAR FILTRATION RATE > 60.0 (>60); GLUCOSE, FASTING 89 MG/DL (70-100); POTASSIUM SERUM 3.9 MEQ/L (3.5-5.1); SALICYLATE LEVEL < 1.7 MG/DL (5.0-30.0); SODIUM LEVEL 140 MEQ/L (136-145); TOTAL PROTEIN 6.7 GM/DL (6.4-8.2)
[2022-04-19] MEDS: QUEtiapine FUMARATE 50MG TAB PO SCH (21:00)
[2022-04-19 21:49] LABS: RSV AMPLIFICATION NEGATIVE (NEGATIVE)
[2022-04-19] MEDS: IBUPROFEN 400MG TAB PO PRN (22:14)
[2022-04-20] MEDS ORDERED: HOME MED LIST COMPLETE! XX SCH (09:25)
[2022-04-20] MEDS: metFORMIN (GLUCOPHAGE) 500MG TAB PO SCH (12:29)
[2022-04-20] MEDS: PANTOPRAZOLE 40MG TAB (PROTONIX) PO SCH (12:29)
[2022-04-20] MEDS: SERTRALINE HCL 50 MG TAB PO SCH (12:29)
[2022-04-20] MEDS: IBUPROFEN 400MG TAB PO PRN (21:41)
[2022-04-20] MEDS: QUEtiapine FUMARATE 50MG TAB PO SCH (21:41)
[2022-04-20] MEDS: PRAZOSIN 1 MG CAP PO SCH (21:41)
[2022-04-21] MEDS: SERTRALINE HCL 50 MG TAB PO SCH (09:00)
[2022-04-21] MEDS: PANTOPRAZOLE 40MG TAB (PROTONIX) PO SCH (09:00)
[2022-04-21] MEDS: metFORMIN (GLUCOPHAGE) 500MG TAB PO SCH (09:00)
[2022-04-21] MEDS: PRAZOSIN 1 MG CAP PO SCH (20:29)
[2022-04-21] MEDS: QUEtiapine FUMARATE 50MG TAB PO SCH (20:29)
[2022-04-21] MEDS ORDERED: traZODone 50 MG TAB PO PRN (21:55)
[2022-04-21] MEDS ORDERED: MOM 30ML SUSPENSION UDC PO PRN (21:55)
[2022-04-21] MEDS ORDERED: ACETAMINOPHEN TAB 650MG DOSE (2X325MG) PO PRN (21:55)
[2022-04-21] MEDS ORDERED: MAALOX 30 ML SUSP *UDC PO PRN (21:55)
[2022-04-21 22:52] VITALS: BP 142/84
[2022-04-22 06:43] VITALS: BP 106/55
[2022-04-22] MEDS: PANTOPRAZOLE 40MG TAB (PROTONIX) PO SCH (08:43)
[2022-04-22] MEDS: SERTRALINE HCL 50 MG TAB PO SCH (08:43)
[2022-04-22] MEDS: metFORMIN (GLUCOPHAGE) 500MG TAB PO SCH (08:44)
[2022-04-22] MEDS: guaiFENesin ER 600 MG TAB PO SCH ×2 (09:00→20:50)
[2022-04-22 15:05] LABS: HEMOGLOBIN A1c 5.8 %
[2022-04-22 18:07] VITALS: BP 114/66
[2022-04-22] MEDS: LACTOBACILLUS ACIDOPHILUS CAP (BACID) PO SCH (19:31)
[2022-04-22 20:11] LABS: AMYLASE 36 U/L (25-115); LIPASE 145 U/L (73-393)
[2022-04-22 20:50] VITALS: BP 114/66
[2022-04-22] MEDS ORDERED: QUEtiapine FUMARATE 50MG TAB PO SCH (21:00)
[2022-04-22] MEDS ORDERED: PRAZOSIN 1 MG CAP PO SCH (21:00)
[2022-04-23] MEDS: SERTRALINE HCL 50 MG TAB PO SCH (08:57)
[2022-04-23] MEDS: PANTOPRAZOLE 40MG TAB (PROTONIX) PO SCH (08:57)
[2022-04-23] MEDS: LACTOBACILLUS ACIDOPHILUS CAP (BACID) PO SCH (08:57)
[2022-04-23] MEDS: guaiFENesin ER 600 MG TAB PO SCH (08:57)
[2022-04-23] MEDS: metFORMIN (GLUCOPHAGE) 500MG TAB PO SCH (08:58)
[2022-04-23 10:47] LABS: CHOLESTEROL RISK RATIO 4.714 (<5)
[2022-04-23] MEDS ORDERED: TRAZ-252 PO (10:53)
== END 2022-04-23 12:40 | disposition home or self-care (01) | DRG 753 ==
LOC: M ED 17:50 → M ED INP 04-21 21:51 → M PSY 04-21 22:38
PROVIDERS: ADMIT Student in an Organized Health Care Education/Training Program; ATTEND Student in an Organized Health Care Education/Training Program
DX: F32.89 Other specified depressive episodes (principal); R16.1 Splenomegaly, not elsewhere classified; I10 Essential (primary) hypertension; F43.10 Post-traumatic stress disorder, unspecified; F60.3 Borderline personality disorder; F12.10 Cannabis abuse, uncomplicated; E28.2 Polycystic ovarian syndrome; E78.5 Hyperlipidemia, unspecified; R51.9 Headache, unspecified; K21.9 Gastro-esophageal reflux disease without esophagitis; R19.7 Diarrhea, unspecified; R10.819 Abdominal tenderness, unspecified site; R11.0 Nausea; Z76.5 Malingerer [conscious simulation]; Z63.8 Other specified problems related to primary support group; Z79.84 Long term (current) use of oral hypoglycemic drugs; Z88.0 Allergy status to penicillin; Z88.2 Allergy status to sulfonamides; Z91.040 Latex allergy status; Z91.018 Allergy to other foods; Z88.8 Allergy status to other drugs, medicaments and biological substances; Z90.49 Acquired absence of other specified parts of digestive tract; Z79.899 Other long term (current) drug therapy; Z62.810 Personal history of physical and sexual abuse in childhood; Z81.8 Family history of other mental and behavioral disorders

== ENCOUNTER 2022-12-06 20:33 | Emergency (ER) | payer OTHER, MEDICAID ==
[~2022-12-06] VITALS: Ht 167.6 cm; Wt 168.5 kg
[~2022-12-06 20:33] MED LIST changes: +BENZ1LOZ2 PO; +BENZ2TAB48 PO; -BENZ2TAB5 PO; +DIPH-435 PO; -DIPH25CA32 PO; +FLUT50SP17 NARES; -FLUTISP NARES; -SORE15LO PO
[2022-12-06] MEDS ORDERED: ELIQ5TAB PO (21:12)
[2022-12-06] MEDS ORDERED: SUMA25TA3 PO (21:19)
[2022-12-06] MEDS ORDERED: ARIP1TAB6 (21:19)
[2022-12-06] MEDS ORDERED: DOXY100T27 (21:19)
[2022-12-06] MEDS ORDERED: DOXY100C3 PO (21:19)
[2022-12-06] MEDS ORDERED: PRAZ2CAP PO (21:19)
[2022-12-06] MEDS ORDERED: FLUO20CA22 PO (21:22)
[2022-12-06] MEDS ORDERED: CIPR-249 PO (21:23)
[2022-12-06] MEDS ORDERED: PROC10TA5 PO (21:26)
[2022-12-06 21:35] LABS: HEMATOCRIT 35.3 % (36.0-47.0); HEMOGLOBIN 10.7 g/dl (12.0-15.5); MEAN CORPUSCULAR HEMOGLOBIN 26.2 pg (27.0-33.0); MEAN CORPUSCULAR HGB CONC 30.3 g/dl (32.0-36.5); MEAN CORPUSCULAR VOLUME 86.5 fl (80.0-96.0); PLATELET COUNT, AUTOMATED 176 10^3/uL (150-450); RED BLOOD COUNT 4.08 10^6/uL (4.00-5.40); WHITE BLOOD COUNT 7.4 10^3/uL (4.0-10.0)
[2022-12-06 21:37] LABS: AMPHETAMINES LEVEL URINE NEGATIVE (NEGATIVE); BARBITURATES URINE NEGATIVE (NEGATIVE); BENZODIAZEPINES URINE NEGATIVE (NEGATIVE); CANNABINOIDS URINE NEGATIVE (NEGATIVE); COCAINE METABOLITE URINE NEGATIVE (NEGATIVE); METHADONE URINE NEGATIVE (NEGATIVE); OPIATES URINE NEGATIVE (NEGATIVE); PHENCYCLIDINE URINE NEGATIVE (NEGATIVE)
[2022-12-06 21:52] LABS: ETHYL ALCOHOL (ETHANOL) < 0.003 % (0.000-0.010)
[2022-12-06 21:53] LABS: ACETAMINOPHEN LEVEL < 2.0 UG/ML (10.0-20.0)
[2022-12-06 21:54] LABS: ALBUMIN 3.5 G/DL (3.2-5.2); ALKALINE PHOSPHATASE 96 U/L (46-116); ALT/SGPT 31 U/L (7.0-40); AST/SGOT 18 U/L (<34); BILIRUBIN,DIRECT < 0.1 MG/DL (<0.4); BILIRUBIN,TOTAL < 0.2 MG/DL (0.3-1.2); BLOOD UREA NITROGEN 11 MG/DL (9-23); CALCIUM LEVEL 8.7 MG/DL (8.5-10.1); CARBON DIOXIDE LEVEL 28 MMOL/L (20-31); CHLORIDE LEVEL 107 MMOL/L (98-107); CREATININE FOR GFR 0.58 MG/DL (0.55-1.30); GLOMERULAR FILTRATION RATE > 60.0 (>60); GLUCOSE, FASTING 104 MG/DL (60-100); SALICYLATE LEVEL < 3.0 MG/DL (<30); SODIUM LEVEL 141 MMOL/L (136-145); TOTAL PROTEIN 6.3 G/DL (5.7-8.2)
[2022-12-06 21:57] LABS: THYROID STIMULATING HORMONE 2.135 uIU/ML (0.55-4.78)
[2022-12-06 23:21] LABS: HCG, SERUM QUALITATIVE NEGATIVE (NEGATIVE)
[2022-12-06] MEDS ORDERED: FLUoxetine 20MG CAP PO ONE (23:55)
[2022-12-06] MEDS ORDERED: PROCHLORPERAZINE 5MG TAB PO PRN (23:55)
[2022-12-07] MEDS: traMADol 50 MG TAB PO PRN ×3 (02:39→14:51)
[2022-12-07] MEDS ORDERED: SUMAtriptan SUCCINATE 25 MG TAB PO ONE ×2 (04:05→11:05)
[2022-12-07] MEDS ORDERED: LACTOBACILLUS ACIDOPHILUS CAP (BACID) PO SCH (08:00)
[2022-12-07] MEDS ORDERED: BREXPIPRAZOLE 0.5MG TABLET (REXULTI) PO SCH (09:00)
[2022-12-07] MEDS ORDERED: MAGNESIUM OXIDE 400MG TAB (MAG-OX) PO SCH (09:00)
[2022-12-07] MEDS ORDERED: DOXYCYCLINE HYCLATE 100MG TABLET PO SCH (09:00)
[2022-12-07] MEDS ORDERED: DULoxetine 30MG CAPSULE (CYMBALTA) PO SCH (09:00)
[2022-12-07] MEDS ORDERED: CIPROFLOXACIN 500MG TABLET PO SCH (09:00)
[2022-12-07] MEDS ORDERED: APIXABAN 5 MG TAB (ELIQUIS) PO SCH (09:00)
[2022-12-07] MEDS ORDERED: REXU1TAB2 PO (10:09)
[2022-12-07] MEDS ORDERED: TRAM50TA2 PO (10:14)
[2022-12-07] MEDS ORDERED: PROC10TA5 PO (10:14)
[2022-12-07] MEDS ORDERED: DULO30CA47 PO (10:14)
[2022-12-07] MEDS ORDERED: FLOR250C PO (10:14)
[2022-12-07] MEDS ORDERED: MAGN400T2 PO (10:14)
[2022-12-07] MEDS ORDERED: TRAZ-189 PO (10:14)
[2022-12-07] MEDS ORDERED: HOME MED LIST COMPLETE! XX SCH (10:15)
[2022-12-07 15:01] VITALS: BP 122/63
[2022-12-07] MEDS ORDERED: PRAZOSIN 1 MG CAP PO SCH (21:00)
[2022-12-07] MEDS ORDERED: traZODone 100 MG TAB PO SCH (21:00)
== END 2022-12-07 15:02 | disposition home or self-care (01) ==
LOC: M ED 20:33
DX: R45.851 Suicidal ideations (principal); F43.9 Reaction to severe stress, unspecified; I10 Essential (primary) hypertension; E28.2 Polycystic ovarian syndrome; F32.A Depression, unspecified; F41.9 Anxiety disorder, unspecified; Z88.0 Allergy status to penicillin; Z88.2 Allergy status to sulfonamides; Z88.8 Allergy status to other drugs, medicaments and biological substances; Z91.018 Allergy to other foods; Z91.014 Allergy to mammalian meats

== ENCOUNTER 2022-12-11 16:46 | Emergency (ER) | payer MEDICAID, OTHER ==
[~2022-12-11] VITALS: Ht 154.9 cm; Wt 164.9 kg
[~2022-12-11 16:46] MED LIST changes: +ARIP1TAB6; +DOXY100T27; +DULO30CA47 PO; +ELIQ5TAB PO; +FLOR250C PO; +MAGN400T2 PO; +PROC10TA5 PO; +REXU1TAB2 PO; +TRAZ-189 PO
[2022-12-11 17:55] LABS: BASO % 0.4 % (0.0-1.0); EOS # 0.2 10^3/uL (0.0-0.5); EOS % 2.6 % (0.0-3.0); HEMATOCRIT 36.5 % (36.0-47.0); HEMOGLOBIN 11.1 g/dl (12.0-15.5); LYMPH # 1.4 10^3/uL (1.5-5.0); LYMPH % 19.5 % (24.0-44.0); MEAN CORPUSCULAR HEMOGLOBIN 26.3 pg (27.0-33.0); MEAN CORPUSCULAR HGB CONC 30.4 g/dl (32.0-36.5); MEAN CORPUSCULAR VOLUME 86.5 fl (80.0-96.0); MONO # 0.6 10^3/uL (0.0-0.8); MONO % 7.8 % (2.0-8.0); NEUTROPHILS # 5.1 10^3/uL (1.5-8.5); NEUTROPHILS % 69.2 % (36.0-66.0); PLATELET COUNT, AUTOMATED 198 10^3/uL (150-450); RED BLOOD COUNT 4.22 10^6/uL (4.00-5.40); WHITE BLOOD COUNT 7.3 10^3/uL (4.0-10.0)
[2022-12-11 18:19] LABS: BLOOD UREA NITROGEN 12 MG/DL (9-23); CALCIUM LEVEL 8.8 MG/DL (8.5-10.1); CARBON DIOXIDE LEVEL 26 MMOL/L (20-31); CHLORIDE LEVEL 107 MMOL/L (98-107); CREATININE FOR GFR 0.61 MG/DL (0.55-1.30); GLOMERULAR FILTRATION RATE > 60.0 (>60); GLUCOSE, FASTING 85 MG/DL (60-100); POTASSIUM SERUM 3.9 MMOL/L (3.5-5.1); SODIUM LEVEL 141 MMOL/L (136-145)
[2022-12-11 18:26] LABS: HCG, SERUM QUALITATIVE NEGATIVE (NEGATIVE)
[2022-12-11 18:30] VITALS: BP 120/58
[2022-12-11] MEDS ORDERED: BENA25CA4 PO (22:42)
[2022-12-11] MEDS ORDERED: med rec comment (22:42)
[2022-12-11] MEDS ORDERED: SUMA50TA2 PO (22:42)
== END 2022-12-11 18:51 | disposition home or self-care (01) ==
LOC: EDBD 16:46 → M ED 16:46
DX: R07.9 Chest pain, unspecified (principal); I10 Essential (primary) hypertension; E78.5 Hyperlipidemia, unspecified; F41.9 Anxiety disorder, unspecified; E28.2 Polycystic ovarian syndrome; Z87.891 Personal history of nicotine dependence; Z88.0 Allergy status to penicillin; Z88.2 Allergy status to sulfonamides; Z88.8 Allergy status to other drugs, medicaments and biological substances; Z91.018 Allergy to other foods; Z91.040 Latex allergy status; Z79.899 Other long term (current) drug therapy

== ENCOUNTER 2022-12-11 21:28 | Emergency (ER) | payer MEDICAID, OTHER ==
[~2022-12-11] VITALS: Ht 167.6 cm; Wt 146.8 kg
[2022-12-11 22:27] LABS: BARBITURATES URINE NEGATIVE (NEGATIVE); CANNABINOIDS URINE NEGATIVE (NEGATIVE); COCAINE METABOLITE URINE NEGATIVE (NEGATIVE); METHADONE URINE NEGATIVE (NEGATIVE); OPIATES URINE NEGATIVE (NEGATIVE); PHENCYCLIDINE URINE NEGATIVE (NEGATIVE)
[2022-12-11 22:28] LABS: AMPHETAMINES LEVEL URINE NEGATIVE (NEGATIVE); BENZODIAZEPINES URINE NEGATIVE (NEGATIVE)
[2022-12-11 22:30] LABS: ETHYL ALCOHOL (ETHANOL) < 0.003 % (0.000-0.010)
[2022-12-11 22:31] LABS: ACETAMINOPHEN LEVEL < 2.0 UG/ML (10.0-20.0); SALICYLATE LEVEL < 3.0 MG/DL (<30)
[2022-12-11 22:32] LABS: ALBUMIN 3.7 G/DL (3.2-5.2); ALKALINE PHOSPHATASE 96 U/L (46-116); ALT/SGPT 23 U/L (7.0-40); AST/SGOT 20 U/L (<34); BILIRUBIN,DIRECT < 0.1 MG/DL (<0.4); BILIRUBIN,TOTAL 0.2 MG/DL (0.3-1.2)
[2022-12-11 22:34] LABS: THYROID STIMULATING HORMONE 2.515 uIU/ML (0.55-4.78)
[2022-12-11] MEDS ORDERED: med rec comment (22:42)
[2022-12-11] MEDS ORDERED: SUMA50TA2 PO (22:42)
[2022-12-11] MEDS ORDERED: BENA25CA4 PO (22:42)
[2022-12-11] MEDS ORDERED: HOME MED LIST COMPLETE! XX SCH (22:45)
[2022-12-12 03:22] VITALS: BP 134/81
[2022-12-12] MEDS ORDERED: traMADol 50 MG TAB PO ONE (10:20)
== END 2022-12-12 11:18 | disposition home or self-care (01) ==
LOC: M ED 21:28
DX: F43.9 Reaction to severe stress, unspecified (principal); F32.A Depression, unspecified; F31.9 Bipolar disorder, unspecified; F60.2 Antisocial personality disorder; Z88.0 Allergy status to penicillin; Z88.2 Allergy status to sulfonamides; Z88.8 Allergy status to other drugs, medicaments and biological substances; Z91.040 Latex allergy status; Z91.018 Allergy to other foods; Z79.899 Other long term (current) drug therapy

== ENCOUNTER 2022-12-15 17:37 | Inpatient (IN) | payer OTHER ==
[~2022-12-15] VITALS: Ht 167.6 cm; Wt 159.0 kg
[~2022-12-15 17:37] MED LIST changes: +SUMA50TA2 PO; +med rec comment
[2022-12-15 18:45] LABS: HEMATOCRIT 39.1 % (36.0-47.0); HEMOGLOBIN 11.4 g/dl (12.0-15.5); MEAN CORPUSCULAR HGB CONC 29.2 g/dl (32.0-36.5); MEAN CORPUSCULAR VOLUME 89.1 fl (80.0-96.0); PLATELET COUNT, AUTOMATED 212 10^3/uL (150-450); RED BLOOD COUNT 4.39 10^6/uL (4.00-5.40); WHITE BLOOD COUNT 7.6 10^3/uL (4.0-10.0)
[2022-12-15 19:06] LABS: AMPHETAMINES LEVEL URINE NEGATIVE (NEGATIVE); ETHYL ALCOHOL (ETHANOL) < 0.003 % (0.000-0.010)
[2022-12-15 19:07] LABS: BARBITURATES URINE NEGATIVE (NEGATIVE); BENZODIAZEPINES URINE NEGATIVE (NEGATIVE); CANNABINOIDS URINE NEGATIVE (NEGATIVE); COCAINE METABOLITE URINE NEGATIVE (NEGATIVE); METHADONE URINE NEGATIVE (NEGATIVE); OPIATES URINE NEGATIVE (NEGATIVE); PHENCYCLIDINE URINE NEGATIVE (NEGATIVE)
[2022-12-15 19:08] LABS: ACETAMINOPHEN LEVEL < 2.0 UG/ML (10.0-20.0); ALBUMIN 3.6 G/DL (3.2-5.2); ALKALINE PHOSPHATASE 104 U/L (46-116); ALT/SGPT 44 U/L (7.0-40); AST/SGOT 27 U/L (<34); BILIRUBIN,DIRECT < 0.1 MG/DL (<0.4); BILIRUBIN,TOTAL 0.2 MG/DL (0.3-1.2); BLOOD UREA NITROGEN 7 MG/DL (9-23); CALCIUM LEVEL 8.2 MG/DL (8.5-10.1); CARBON DIOXIDE LEVEL 26 MMOL/L (20-31); CHLORIDE LEVEL 108 MMOL/L (98-107); CREATININE FOR GFR 0.61 MG/DL (0.55-1.30); GLOMERULAR FILTRATION RATE > 60.0 (>60); GLUCOSE, FASTING 84 MG/DL (60-100); SALICYLATE LEVEL < 3.0 MG/DL (<30); SODIUM LEVEL 141 MMOL/L (136-145); TOTAL PROTEIN 6.3 G/DL (5.7-8.2)
[2022-12-15 19:12] LABS: LITHIUM LEVEL 0.34 MMOL/L (0.60-1.20)
[2022-12-15 19:13] LABS: THYROID STIMULATING HORMONE 1.436 uIU/ML (0.55-4.78)
[2022-12-15 19:15] LABS: HCG, SERUM QUALITATIVE NEGATIVE (NEGATIVE)
[2022-12-15] MEDS ORDERED: LITH300C (21:24)
[2022-12-15] MEDS ORDERED: QUET50TA4 PO (22:53)
[2022-12-15] MEDS ORDERED: MELA5TAB7 PO (22:53)
[2022-12-15] MEDS ORDERED: LITH300T2 PO (22:53)
[2022-12-15] MEDS ORDERED: HOME MED LIST COMPLETE! XX SCH (22:55)
[2022-12-15] MEDS ORDERED: diphenhydrAMINE 25MG CAP PO PRN (23:15)
[2022-12-15] MEDS ORDERED: MAALOX 30 ML SUSP *UDC PO PRN (23:15)
[2022-12-15] MEDS ORDERED: ACETAMINOPHEN TAB 650MG DOSE (2X325MG) PO PRN (23:15)
[2022-12-15] MEDS ORDERED: MOM 30ML SUSPENSION UDC PO PRN (23:15)
[2022-12-15] MEDS ORDERED: PRAZOSIN 1 MG CAP PO ONE (23:25)
[2022-12-15] MEDS ORDERED: SUMAtriptan SUCCINATE 25 MG TAB PO ONE (23:25)
[2022-12-15] MEDS ORDERED: QUEtiapine FUMARATE 50MG TAB PO ONE (23:25)
[2022-12-15] MEDS ORDERED: traZODone 100 MG TAB PO ONE (23:25)
[2022-12-15] MEDS ORDERED: APIXABAN 5 MG TAB (ELIQUIS) PO ONE (23:25)
[2022-12-15 23:36] VITALS: BP 166/74
[2022-12-16 00:30] VITALS: BP 130/66
[2022-12-16] MEDS ORDERED: APIXABAN 5 MG TAB (ELIQUIS) PO SCH (09:00)
[2022-12-16] MEDS ORDERED: LITHIUM CARBONATE 600MG CAP PO SCH ×2 (11:00→21:00)
[2022-12-16] MEDS ORDERED: SUMAtriptan SUCCINATE 25 MG TAB PO PRN (11:25)
[2022-12-16] MEDS ORDERED: traZODone 50 MG TAB PO PRN (18:00)
[2022-12-16] MEDS ORDERED: PRAZOSIN 1 MG CAP PO SCH (21:00)
[2022-12-16] MEDS ORDERED: QUEtiapine FUMARATE 50MG TAB PO SCH (21:00)
== END 2022-12-16 14:59 | disposition home or self-care (01) | DRG 753 ==
LOC: M ED 17:37 → M ED INP 23:11 → UNDOADMIN 23:30 → M PSY 12-16 00:55
PROVIDERS: ADMIT Psychiatry & Neurology Psychiatry; ATTEND Psychiatry & Neurology Psychiatry
DX: F39 Unspecified mood [affective] disorder (principal); F79 Unspecified intellectual disabilities; R45.851 Suicidal ideations; Z56.0 Unemployment, unspecified; F60.2 Antisocial personality disorder; F43.10 Post-traumatic stress disorder, unspecified; F41.9 Anxiety disorder, unspecified; G43.909 Migraine, unspecified, not intractable, without status migrainosus; I10 Essential (primary) hypertension; E78.5 Hyperlipidemia, unspecified; E28.2 Polycystic ovarian syndrome; Z90.49 Acquired absence of other specified parts of digestive tract; Z90.721 Acquired absence of ovaries, unilateral; Z81.8 Family history of other mental and behavioral disorders; Z62.810 Personal history of physical and sexual abuse in childhood; Z59.00 Homelessness unspecified; F60.3 Borderline personality disorder; Z76.5 Malingerer [conscious simulation]; F12.10 Cannabis abuse, uncomplicated; Z73.9 Problem related to life management difficulty, unspecified; Z62.820 Parent-biological child conflict

== ENCOUNTER 2023-05-19 20:12 | Emergency (ER) | payer OTHER ==
[~2023-05-19] VITALS: Ht 167.6 cm; Wt 110.9 kg
[~2023-05-19 20:12] MED LIST changes: +CYAN-1 PO; -CYAN100050 PO; +DICY-61 PO; -DICY10CA13 PO; +LITH300C; +LITH300T2 PO; +MELA5TAB7 PO; -MIRT-62 PO; +MIRT-84 PO; +MIRT-88 PO; -REME15TA2 PO
[2023-05-19 22:27] LABS: BASO % 0.3 % (0.0-1.0); EOS # 0.3 10^3/uL (0.0-0.5); HEMOGLOBIN 10.5 g/dl (12.0-15.5); LYMPH # 1.8 10^3/uL (1.5-5.0); LYMPH % 23.5 % (24.0-44.0); MEAN CORPUSCULAR HEMOGLOBIN 23.6 pg (27.0-33.0); MEAN CORPUSCULAR HGB CONC 29.2 g/dl (32.0-36.5); MEAN CORPUSCULAR VOLUME 81.1 fl (80.0-96.0); MONO # 0.6 10^3/uL (0.0-0.8); MONO % 8.3 % (2.0-8.0); NEUTROPHILS # 4.7 10^3/uL (1.5-8.5); NEUTROPHILS % 63.5 % (36.0-66.0); PLATELET COUNT, AUTOMATED 237 10^3/uL (150-450); RED BLOOD COUNT 4.44 10^6/uL (4.00-5.40); WHITE BLOOD COUNT 7.4 10^3/uL (4.0-10.0)
[2023-05-19 22:39] LABS: LIPASE 28 U/L (12-53)
[2023-05-19 22:41] LABS: ALBUMIN 3.6 G/DL (3.2-5.2); ALKALINE PHOSPHATASE 74 U/L (46-116); ALT/SGPT 34 U/L (7.0-40); AST/SGOT 20 U/L (<34); BILIRUBIN,DIRECT 0.1 MG/DL (<0.4); BILIRUBIN,TOTAL 0.3 MG/DL (0.3-1.2); BLOOD UREA NITROGEN 12 MG/DL (9-23); CALCIUM LEVEL 8.8 MG/DL (8.5-10.1); CARBON DIOXIDE LEVEL 27 MMOL/L (20-31); CHLORIDE LEVEL 114 MMOL/L (98-107); CREATININE FOR GFR 0.74 MG/DL (0.55-1.30); GLOMERULAR FILTRATION RATE > 60.0 (>60); GLUCOSE, FASTING 87 MG/DL (60-100); POTASSIUM SERUM 3.9 MMOL/L (3.5-5.1); SODIUM LEVEL 148 MMOL/L (136-145); TOTAL PROTEIN 6.7 G/DL (5.7-8.2)
[2023-05-19 22:42] LABS: HCG, SERUM QUALITATIVE NEGATIVE (NEGATIVE)
[2023-05-20] MEDS ORDERED: PANTOPRAZOLE 40MG TAB (PROTONIX) PO ONE (03:40)
[2023-05-20] MEDS ORDERED: ONDANSETRON 4MG ORAL DISINTEGRATING TAB PO ONE (03:40)
[2023-05-20 03:51] VITALS: BP 139/80; TEMP 97.7; O2SAT 98
[2023-05-20 10:16] LABS: ACETAMINOPHEN LEVEL < 2.0 UG/ML (10.0-20.0); SALICYLATE LEVEL < 3.0 MG/DL (<30)
[2023-05-20 10:22] LABS: THYROID STIMULATING HORMONE 2.117 uIU/ML (0.55-4.78)
[2023-05-20 10:23] LABS: FREE T4 1.04 NG/DL (0.89-1.76)
[2023-05-20 10:31] LABS: AMPHETAMINES LEVEL URINE NEGATIVE (NEGATIVE); BARBITURATES URINE NEGATIVE (NEGATIVE); BENZODIAZEPINES URINE NEGATIVE (NEGATIVE); COCAINE METABOLITE URINE NEGATIVE (NEGATIVE); METHADONE URINE NEGATIVE (NEGATIVE); OPIATES URINE NEGATIVE (NEGATIVE); PHENCYCLIDINE URINE NEGATIVE (NEGATIVE)
[2023-05-20 10:35] LABS: CANNABINOIDS URINE POSITIVE (NEGATIVE)
== END 2023-05-20 12:08 | disposition home or self-care (01) ==
LOC: M ED 20:12
DX: R10.9 Unspecified abdominal pain (principal); R11.10 Vomiting, unspecified; F31.9 Bipolar disorder, unspecified; F60.3 Borderline personality disorder; Z79.899 Other long term (current) drug therapy

== ENCOUNTER 2023-10-11 15:10 | Emergency (ER) | payer OTHER ==
[~2023-10-11] VITALS: Ht 167.6 cm; Wt 172.5 kg
[~2023-10-11 15:10] MED LIST changes: -BENZ1LOZ2 PO; +CEFD1CAP9; +CEFD1CAP9 PO; -CEFD300C41; -CEFD300C41 PO; -EFFE150C2 PO; +EFFE150C3 PO; -FLUT50SP17 NARES; +FLUTISP NARES; +SORE15LO PO
[2023-10-11 17:56] VITALS: BP 129/78; TEMP 98.7; O2SAT 98
[2023-10-11 18:39] LABS: RSV AMPLIFICATION NEGATIVE (NEGATIVE)
[2023-10-12] MEDS ORDERED: PRAZ1CAP46 PO (20:34)
[2023-10-12] MEDS ORDERED: MEDR10TA9 PO (20:40)
[2023-10-12] MEDS ORDERED: FURO20TA2 PO (20:40)
[2023-10-12] MEDS ORDERED: SUMA50TA2 PO (20:40)
[2023-10-12] MEDS ORDERED: METF500T13 PO (20:40)
[2023-10-12] MEDS ORDERED: ONDA-83 PO (20:40)
[2023-10-12] MEDS ORDERED: VENTAER INH (20:40)
[2023-10-12] MEDS ORDERED: LORA-1041 PO (20:40)
[2023-10-12] MEDS ORDERED: CHLOR50TA PO (20:50)
[2023-10-12] MEDS ORDERED: ZOLO100T PO (20:50)
[2023-10-12] MEDS ORDERED: SUCR1TAB56 PO (20:50)
[2023-10-12] MEDS ORDERED: DOCU100C16 PO (20:50)
[2023-10-12] MEDS ORDERED: FERR1TAB8 PO (20:50)
[2023-10-12] MEDS ORDERED: CHLO100T30 PO (20:50)
== END 2023-10-11 19:30 | disposition home or self-care (01) ==
LOC: M ED 15:10
DX: S93.401A Sprain of unspecified ligament of right ankle, initial encounter (principal); Y92.9 Unspecified place or not applicable; Y93.9 Activity, unspecified; Y99.9 Unspecified external cause status; Z88.0 Allergy status to penicillin; Z88.2 Allergy status to sulfonamides; Z91.040 Latex allergy status; Z91.018 Allergy to other foods; Z88.8 Allergy status to other drugs, medicaments and biological substances; Z79.51 Long term (current) use of inhaled steroids; Z79.899 Other long term (current) drug therapy; Z79.84 Long term (current) use of oral hypoglycemic drugs

== ENCOUNTER 2023-10-12 09:29 | Emergency (ER) | payer OTHER ==
[~2023-10-12] VITALS: Ht 167.6 cm; Wt 101.4 kg
[2023-10-12 12:52] LABS: BASO % 0.4 % (0.0-1.0); EOS # 0.2 10^3/uL (0.0-0.5); EOS % 2.6 % (0.0-3.0); HEMATOCRIT 37.6 % (36.0-47.0); HEMOGLOBIN 11.7 g/dl (12.0-15.5); LYMPH # 1.5 10^3/uL (1.5-5.0); LYMPH % 26.6 % (24.0-44.0); MEAN CORPUSCULAR HEMOGLOBIN 25.1 pg (27.0-33.0); MEAN CORPUSCULAR HGB CONC 31.1 g/dl (32.0-36.5); MEAN CORPUSCULAR VOLUME 80.5 fl (80.0-96.0); MONO # 0.6 10^3/uL (0.0-0.8); MONO % 10.8 % (2.0-8.0); NEUTROPHILS # 3.4 10^3/uL (1.5-8.5); NEUTROPHILS % 59.2 % (36.0-66.0); PLATELET COUNT, AUTOMATED 221 10^3/uL (150-450); RED BLOOD COUNT 4.67 10^6/uL (4.00-5.40); WHITE BLOOD COUNT 5.7 10^3/uL (4.0-10.0)
[2023-10-12 13:20] LABS: RSV AMPLIFICATION NEGATIVE (NEGATIVE)
[2023-10-12] MEDS: NS 1,000 ML IV ONE (13:26)
[2023-10-12] MEDS: ONDANSETRON 4MG 2ML VIAL IV ONE (13:26)
[2023-10-12] MEDS: KETOROLAC 30 MG/ML 1ML VIAL IV ONE (13:32)
[2023-10-12 14:40] LABS: CK-MB VALUE MASS < 1.0 NG/ML (<3.6)
[2023-10-12 14:43] LABS: CPK CREATINE PHOSPHOKINASE 183 U/L (34-145); MB/CK RELATIVE INDEX 0.54 (< OR =4)
[2023-10-12 15:05] VITALS: BP 113/56; TEMP 98.7; O2SAT 97
[2023-10-12] MEDS ORDERED: PRAZ1CAP46 PO (20:34)
[2023-10-12] MEDS ORDERED: FURO20TA2 PO (20:40)
[2023-10-12] MEDS ORDERED: ONDA-83 PO (20:40)
[2023-10-12] MEDS ORDERED: VENTAER INH (20:40)
[2023-10-12] MEDS ORDERED: MEDR10TA9 PO (20:40)
[2023-10-12] MEDS ORDERED: METF500T13 PO (20:40)
[2023-10-12] MEDS ORDERED: SUMA50TA2 PO (20:40)
[2023-10-12] MEDS ORDERED: LORA-1041 PO (20:40)
[2023-10-12] MEDS ORDERED: DOCU100C16 PO (20:50)
[2023-10-12] MEDS ORDERED: CHLO100T30 PO (20:50)
[2023-10-12] MEDS ORDERED: SUCR1TAB56 PO (20:50)
[2023-10-12] MEDS ORDERED: ZOLO100T PO (20:50)
[2023-10-12] MEDS ORDERED: FERR1TAB8 PO (20:50)
[2023-10-12] MEDS ORDERED: CHLOR50TA PO (20:50)
[2023-10-13] MEDS ORDERED: DOXY100C3 PO (13:19)
== END 2023-10-12 15:33 | disposition home or self-care (01) ==
LOC: M ED 09:29 → EDBD 09:29 → M ED 15:33
DX: J20.9 Acute bronchitis, unspecified (principal); R00.0 Tachycardia, unspecified; I10 Essential (primary) hypertension; K21.9 Gastro-esophageal reflux disease without esophagitis; Z86.711 Personal history of pulmonary embolism; Z86.718 Personal history of other venous thrombosis and embolism; Z88.0 Allergy status to penicillin; Z88.1 Allergy status to other antibiotic agents; Z88.2 Allergy status to sulfonamides; Z88.8 Allergy status to other drugs, medicaments and biological substances; Z91.018 Allergy to other foods; Z79.2 Long term (current) use of antibiotics; Z79.52 Long term (current) use of systemic steroids; Z79.891 Long term (current) use of opiate analgesic; Z79.811 Long term (current) use of aromatase inhibitors; Z79.899 Other long term (current) drug therapy
CPT/HCPCS: 71046; 80047; 82550; 82553; 84702; 85025; 87631; 93005; 96361; 96374; 96375; 99284; J1885; J2405

== ENCOUNTER 2023-10-12 16:35 | Inpatient (IN) | payer OTHER ==
[~2023-10-12] VITALS: Ht 167.6 cm; Wt 171.0 kg
[2023-10-12 20:31] LABS: BASO % 0.4 % (0.0-1.0); EOS # 0.2 10^3/uL (0.0-0.5); EOS % 2.5 % (0.0-3.0); HEMATOCRIT 36.5 % (36.0-47.0); MEAN CORPUSCULAR HEMOGLOBIN 24.7 pg (27.0-33.0); MEAN CORPUSCULAR HGB CONC 30.1 g/dl (32.0-36.5); MONO # 0.7 10^3/uL (0.0-0.8); MONO % 9.8 % (2.0-8.0); NEUTROPHILS # 4.2 10^3/uL (1.5-8.5); NEUTROPHILS % 58.9 % (36.0-66.0); PLATELET COUNT, AUTOMATED 218 10^3/uL (150-450); RED BLOOD COUNT 4.45 10^6/uL (4.00-5.40); WHITE BLOOD COUNT 7.1 10^3/uL (4.0-10.0)
[2023-10-12] MEDS ORDERED: PRAZ1CAP46 PO (20:34)
[2023-10-12] MEDS ORDERED: LORA-1041 PO (20:40)
[2023-10-12] MEDS ORDERED: ONDA-83 PO (20:40)
[2023-10-12] MEDS ORDERED: VENTAER INH (20:40)
[2023-10-12] MEDS ORDERED: MEDR10TA9 PO (20:40)
[2023-10-12] MEDS ORDERED: SUMA50TA2 PO (20:40)
[2023-10-12] MEDS ORDERED: METF500T13 PO (20:40)
[2023-10-12] MEDS ORDERED: FURO20TA2 PO (20:40)
[2023-10-12] MEDS ORDERED: CHLOR50TA PO (20:50)
[2023-10-12] MEDS ORDERED: SUCR1TAB56 PO (20:50)
[2023-10-12] MEDS ORDERED: DOCU100C16 PO (20:50)
[2023-10-12] MEDS ORDERED: FERR1TAB8 PO (20:50)
[2023-10-12] MEDS ORDERED: CHLO100T30 PO (20:50)
[2023-10-12] MEDS ORDERED: ZOLO100T PO (20:50)
[2023-10-12 20:55] LABS: AMPHETAMINES LEVEL URINE NEGATIVE (NEGATIVE); BARBITURATES URINE NEGATIVE (NEGATIVE); CANNABINOIDS URINE NEGATIVE (NEGATIVE); COCAINE METABOLITE URINE NEGATIVE (NEGATIVE); METHADONE URINE NEGATIVE (NEGATIVE); OPIATES URINE NEGATIVE (NEGATIVE); PHENCYCLIDINE URINE NEGATIVE (NEGATIVE)
[2023-10-12 20:56] LABS: BENZODIAZEPINES URINE POSITIVE (NEGATIVE)
[2023-10-12 20:57] LABS: ETHYL ALCOHOL (ETHANOL) 0.004 % (0.000-0.010)
[2023-10-12 20:59] LABS: ALBUMIN 3.3 G/DL (3.2-5.2); ALKALINE PHOSPHATASE 70 U/L (46-116); ALT/SGPT 30 U/L (7.0-40); AST/SGOT 17 U/L (<34); BILIRUBIN,DIRECT < 0.1 MG/DL (<0.4); BILIRUBIN,TOTAL 0.2 MG/DL (0.3-1.2); BLOOD UREA NITROGEN 12 MG/DL (9-23); CALCIUM LEVEL 8.7 MG/DL (8.5-10.1); CARBON DIOXIDE LEVEL 27 MMOL/L (20-31); CHLORIDE LEVEL 110 MMOL/L (98-107); CREATININE FOR GFR 0.91 MG/DL (0.55-1.30); GLOMERULAR FILTRATION RATE > 60.0 (>60); GLUCOSE, FASTING 91 MG/DL (60-100); POTASSIUM SERUM 3.9 MMOL/L (3.5-5.1); SALICYLATE LEVEL < 3.0 MG/DL (<30); SODIUM LEVEL 143 MMOL/L (136-145); TOTAL PROTEIN 6.3 G/DL (5.7-8.2)
[2023-10-12 21:01] LABS: THYROID STIMULATING HORMONE 1.888 uIU/ML (0.55-4.78)
[2023-10-12 21:03] LABS: HCG, SERUM QUALITATIVE NEGATIVE (NEGATIVE)
[2023-10-12] MEDS ORDERED: HOME MED LIST COMPLETE! XX SCH (21:05)
[2023-10-12] MEDS ORDERED: MOM 30ML SUSPENSION UDC PO PRN (21:10)
[2023-10-12] MEDS ORDERED: ACETAMINOPHEN TAB 650MG DOSE (2X325MG) PO PRN (21:10)
[2023-10-12] MEDS ORDERED: traZODone 50 MG TAB PO PRN (21:10)
[2023-10-12] MEDS ORDERED: MAALOX 30 ML SUSP *UDC PO PRN (21:10)
[2023-10-12] MEDS ORDERED: diphenhydrAMINE 25MG CAP PO PRN (21:10)
[2023-10-12 23:06] VITALS: BP 114/65; TEMP 98.1; O2SAT 96
[2023-10-12] MEDS: IBUPROFEN 400MG TAB PO PRN (23:47)
[2023-10-13 06:24] VITALS: BP 130/71; TEMP 98.5; O2SAT 97
[2023-10-13] MEDS ORDERED: ONDANSETRON 4MG TAB PO PRN (10:00)
[2023-10-13] MEDS ORDERED: BENZONATATE 100MG CAPSULE PO PRN (10:00)
[2023-10-13] MEDS ORDERED: ALBUTEROL 90 MCG/ACT 8GM HFA INHALER INH PRN (10:00)
[2023-10-13] MEDS: FERROUS SULFATE 325MG TAB PO SCH (10:13)
[2023-10-13] MEDS: DOCUSATE SODIUM 100MG CAPSULE PO SCH (10:13)
[2023-10-13] MEDS: LORATADINE 10 MG TAB PO SCH (10:13)
[2023-10-13] MEDS: FUROSEMIDE 20 MG TAB PO SCH (10:13)
[2023-10-13] MEDS: SUCRALFATE 1 GM TAB PO SCH (10:43)
[2023-10-13] MEDS: SUMAtriptan SUCCINATE 25 MG TAB PO PRN (10:43)
[2023-10-13] MEDS: PANTOPRAZOLE 40MG TAB (PROTONIX) PO SCH (10:44)
[2023-10-13] MEDS: metFORMIN (GLUCOPHAGE) 500MG TAB PO SCH (10:44)
[2023-10-13] MEDS: TOPIRAMATE (TopAMAX) 25 MG TAB PO SCH (10:44)
[2023-10-13] MEDS: SERTRALINE 100 MG TAB PO SCH (10:44)
[2023-10-13] MEDS: GABAPENTIN 100 MG CAP PO SCH (10:47)
[2023-10-13] MEDS: medroxyPROGESTERone 5MG TABLET PO SCH (10:58)
[2023-10-13] MEDS ORDERED: DOXY100C3 PO (13:19)
[2023-10-13] MEDS ORDERED: traZODone 100 MG TAB PO SCH (21:00)
[2023-10-14] MEDS ORDERED: BUSP10TA79 PO (06:49)
[2023-10-14] MEDS ORDERED: LOPE2TAB12 PO (06:49)
== END 2023-10-13 13:36 | disposition home or self-care (01) | DRG 755 ==
LOC: M ED 16:35 → M ED INP 21:20 → M PSY 23:01
PROVIDERS: ADMIT Student in an Organized Health Care Education/Training Program; ATTEND Student in an Organized Health Care Education/Training Program
DX: F43.20 Adjustment disorder, unspecified (principal); E66.01 Morbid (severe) obesity due to excess calories; I10 Essential (primary) hypertension; F79 Unspecified intellectual disabilities; F43.10 Post-traumatic stress disorder, unspecified; F60.3 Borderline personality disorder; F60.2 Antisocial personality disorder; F12.10 Cannabis abuse, uncomplicated; Z76.5 Malingerer [conscious simulation]; K21.9 Gastro-esophageal reflux disease without esophagitis; E78.5 Hyperlipidemia, unspecified; J45.909 Unspecified asthma, uncomplicated; G43.909 Migraine, unspecified, not intractable, without status migrainosus; E28.2 Polycystic ovarian syndrome; F17.200 Nicotine dependence, unspecified, uncomplicated; J20.9 Acute bronchitis, unspecified; Z79.84 Long term (current) use of oral hypoglycemic drugs; Z79.899 Other long term (current) drug therapy; Z88.0 Allergy status to penicillin; Z88.2 Allergy status to sulfonamides; Z88.8 Allergy status to other drugs, medicaments and biological substances; Z91.018 Allergy to other foods; Z91.040 Latex allergy status

== ENCOUNTER 2023-10-13 16:42 | Emergency (ER) | payer OTHER ==
[~2023-10-13] VITALS: Ht 167.6 cm; Wt 172.8 kg
[~2023-10-13 16:42] MED LIST changes: +CHLO100T30 PO; +CHLOR50TA PO; +FERR1TAB8 PO; +FURO20TA2 PO; +LORA-1041 PO; +MEDR10TA9 PO; +PRAZ1CAP46 PO; +VENTAER INH; +ZOLO100T PO
[2023-10-13 17:51] LABS: HEMOGLOBIN 11.6 g/dl (12.0-15.5); MEAN CORPUSCULAR HEMOGLOBIN 24.9 pg (27.0-33.0); MEAN CORPUSCULAR HGB CONC 29.7 g/dl (32.0-36.5); MEAN CORPUSCULAR VOLUME 83.7 fl (80.0-96.0); PLATELET COUNT, AUTOMATED 198 10^3/uL (150-450); RED BLOOD COUNT 4.66 10^6/uL (4.00-5.40); WHITE BLOOD COUNT 5.7 10^3/uL (4.0-10.0)
[2023-10-13 18:12] LABS: AMPHETAMINES LEVEL URINE NEGATIVE (NEGATIVE); BARBITURATES URINE NEGATIVE (NEGATIVE); BENZODIAZEPINES URINE NEGATIVE (NEGATIVE); CANNABINOIDS URINE NEGATIVE (NEGATIVE); COCAINE METABOLITE URINE NEGATIVE (NEGATIVE); ETHYL ALCOHOL (ETHANOL) 0.005 % (0.000-0.010); METHADONE URINE NEGATIVE (NEGATIVE); OPIATES URINE NEGATIVE (NEGATIVE); PHENCYCLIDINE URINE NEGATIVE (NEGATIVE)
[2023-10-13 18:14] LABS: ALBUMIN 3.3 G/DL (3.2-5.2); ALKALINE PHOSPHATASE 74 U/L (46-116); ALT/SGPT 30 U/L (7.0-40); AST/SGOT 29 U/L (<34); BILIRUBIN,DIRECT < 0.1 MG/DL (<0.4); BILIRUBIN,TOTAL < 0.2 MG/DL (0.3-1.2); BLOOD UREA NITROGEN 12 MG/DL (9-23); CALCIUM LEVEL 8.5 MG/DL (8.5-10.1); CARBON DIOXIDE LEVEL 25 MMOL/L (20-31); CHLORIDE LEVEL 111 MMOL/L (98-107); CREATININE FOR GFR 0.76 MG/DL (0.55-1.30); GLOMERULAR FILTRATION RATE > 60.0 (>60); GLUCOSE, FASTING 98 MG/DL (60-100); POTASSIUM SERUM 4.4 MMOL/L (3.5-5.1); SALICYLATE LEVEL < 3.0 MG/DL (<30); SODIUM LEVEL 145 MMOL/L (136-145); TOTAL PROTEIN 6.3 G/DL (5.7-8.2)
[2023-10-13 18:15] LABS: THYROID STIMULATING HORMONE 1.489 uIU/ML (0.55-4.78)
[2023-10-13 18:23] LABS: HCG, SERUM QUALITATIVE NEGATIVE (NEGATIVE)
[2023-10-13] MEDS ORDERED: FUROSEMIDE 20 MG TAB PO ONE (22:50)
[2023-10-13] MEDS: LORATADINE 10 MG TAB PO ONE (23:08)
[2023-10-13] MEDS: DOCUSATE SODIUM 100MG CAPSULE PO ONE (23:09)
[2023-10-13] MEDS: PANTOPRAZOLE 40MG TAB (PROTONIX) PO ONE (23:09)
[2023-10-13] MEDS: GABAPENTIN 100 MG CAP PO ONE (23:09)
[2023-10-13] MEDS: traZODone 50 MG TAB PO ONE (23:09)
[2023-10-13] MEDS: SERTRALINE 100 MG TAB PO ONE (23:09)
[2023-10-13] MEDS: metFORMIN (GLUCOPHAGE) 500MG TAB PO ONE (23:09)
[2023-10-13] MEDS: SUMAtriptan SUCCINATE 25 MG TAB PO ONE (23:09)
[2023-10-13] MEDS: TOPIRAMATE (TopAMAX) 25 MG TAB PO ONE (23:09)
[2023-10-13] MEDS: SUCRALFATE 1 GM TAB PO ONE (23:09)
[2023-10-14] MEDS ORDERED: LOPE2TAB12 PO (06:49)
[2023-10-14] MEDS ORDERED: BUSP10TA79 PO (06:49)
[2023-10-14] MEDS ORDERED: HOME MED LIST COMPLETE! XX SCH (06:50)
[2023-10-14] MEDS ORDERED: FUROSEMIDE 20 MG TAB PO ONE (08:00)
[2023-10-14] MEDS ORDERED: FERROUS SULFATE 325MG TAB PO SCH (09:00)
[2023-10-14] MEDS ORDERED: medroxyPROGESTERone 5MG TABLET PO SCH (09:00)
[2023-10-14 09:14] VITALS: BP 142/86; TEMP 97.2; O2SAT 98
== END 2023-10-14 09:46 | disposition home or self-care (01) ==
LOC: M ED 16:42
DX: F60.3 Borderline personality disorder (principal); I10 Essential (primary) hypertension; J45.909 Unspecified asthma, uncomplicated; F32.A Depression, unspecified; F43.10 Post-traumatic stress disorder, unspecified; F31.9 Bipolar disorder, unspecified; K21.9 Gastro-esophageal reflux disease without esophagitis; Z88.2 Allergy status to sulfonamides; Z88.0 Allergy status to penicillin; Z88.8 Allergy status to other drugs, medicaments and biological substances; Z91.018 Allergy to other foods; Z79.51 Long term (current) use of inhaled steroids; Z79.899 Other long term (current) drug therapy; Z79.84 Long term (current) use of oral hypoglycemic drugs

== ENCOUNTER 2023-10-14 14:07 | Inpatient (IN) | payer OTHER ==
[~2023-10-14] VITALS: Ht 167.6 cm; Wt 172.8 kg
[~2023-10-14 14:07] MED LIST changes: +BUSP10TA79 PO; +LOPE2TAB12 PO
[2023-10-14] MEDS: IBUPROFEN 400MG TAB PO ONE (15:16)
[2023-10-14] MEDS: LORATADINE 10 MG TAB PO ONE (20:06)
[2023-10-14] MEDS: traZODone 100 MG TAB PO ONE (20:06)
[2023-10-14] MEDS: SUCRALFATE 1 GM TAB PO ONE (20:07)
[2023-10-14] MEDS: TOPIRAMATE (TopAMAX) 25 MG TAB PO ONE (20:07)
[2023-10-14] MEDS: busPIRone 10 MG TAB PO ONE (20:07)
[2023-10-14] MEDS: DOCUSATE SODIUM 100MG CAPSULE PO ONE (20:07)
[2023-10-14] MEDS: PANTOPRAZOLE 40MG TAB (PROTONIX) PO ONE (20:07)
[2023-10-14] MEDS: SERTRALINE 100 MG TAB PO ONE (20:07)
[2023-10-14] MEDS: GABAPENTIN 100 MG CAP PO ONE (20:07)
[2023-10-14] MEDS: CYCLOBENZAPRINE 10MG TABLET PO ONE (20:07)
[2023-10-14] MEDS: metFORMIN (GLUCOPHAGE) 500MG TAB PO ONE (20:07)
[2023-10-14] MEDS: FERROUS SULFATE 325MG TAB PO ONE (21:12)
[2023-10-14] MEDS: PRAZOSIN 1 MG CAP PO SCH (21:13)
[2023-10-15] MEDS ORDERED: PRAZOSIN 1 MG CAP PO SCH (09:00)
[2023-10-15] MEDS ORDERED: MED REC IN PROGRESS XX SCH (09:15)
[2023-10-15] MEDS ORDERED: HOME MED LIST COMPLETE! XX SCH (09:35)
[2023-10-15] MEDS ORDERED: traZODone 50 MG TAB PO PRN (12:10)
[2023-10-15] MEDS ORDERED: MOM 30ML SUSPENSION UDC PO PRN (12:10)
[2023-10-15] MEDS ORDERED: MAALOX 30 ML SUSP *UDC PO PRN (12:10)
[2023-10-15 16:50] VITALS: BP 134/67; TEMP 99.1; O2SAT 96
[2023-10-15] MEDS: IBUPROFEN 400MG TAB PO PRN (20:53)
[2023-10-15] MEDS: FERROUS SULFATE 325MG TAB PO SCH (20:59)
[2023-10-15] MEDS: SUCRALFATE 1 GM TAB PO SCH (20:59)
[2023-10-15] MEDS: PRAZOSIN 1 MG CAP PO SCH (21:00)
[2023-10-15] MEDS: busPIRone 10 MG TAB PO SCH (21:00)
[2023-10-15] MEDS: GABAPENTIN 100 MG CAP PO SCH (21:00)
[2023-10-15] MEDS: traZODone 100 MG TAB PO SCH (21:00)
[2023-10-15] MEDS: TOPIRAMATE (TopAMAX) 25 MG TAB PO SCH (21:29)
[2023-10-16 06:47] VITALS: BP 117/96; TEMP 98.5
[2023-10-16] MEDS: PANTOPRAZOLE 40MG TAB (PROTONIX) PO SCH (08:46)
[2023-10-16] MEDS: DOCUSATE SODIUM 100MG CAPSULE PO SCH (08:46)
[2023-10-16] MEDS: FUROSEMIDE 20 MG TAB PO SCH (09:00)
[2023-10-16 13:00] VITALS: BP 123/77; TEMP 98.8; O2SAT 100
[2023-10-16] MEDS: SUMAtriptan SUCCINATE 25 MG TAB PO PRN (13:08)
[2023-10-16] MEDS: SERTRALINE 100 MG TAB PO SCH (13:51)
[2023-10-16] MEDS: INFLUENZA QUADRIVALENT PF VACCINE 0.5ML SYRINGE IM.IMMUN ONE (13:56)
[2023-10-16] MEDS: diphenhydrAMINE 25MG CAP PO PRN (15:30)
[2023-10-16 16:06] VITALS: BP 107/62; TEMP 98.6; O2SAT 98
[2023-10-16] MEDS: LORATADINE 10 MG TAB PO SCH (20:14)
[2023-10-16] MEDS: metFORMIN (GLUCOPHAGE) 500MG TAB PO SCH (20:14)
[2023-10-16 21:16] LABS: BASO % 0.1 % (0.0-1.0); EOS # 0.2 10^3/uL (0.0-0.5); EOS % 2.4 % (0.0-3.0); HEMATOCRIT 38.8 % (36.0-47.0); HEMOGLOBIN 11.4 g/dl (12.0-15.5); LYMPH # 2.3 10^3/uL (1.5-5.0); LYMPH % 30.3 % (24.0-44.0); MEAN CORPUSCULAR HEMOGLOBIN 24.3 pg (27.0-33.0); MEAN CORPUSCULAR HGB CONC 29.4 g/dl (32.0-36.5); MEAN CORPUSCULAR VOLUME 82.7 fl (80.0-96.0); MONO # 0.7 10^3/uL (0.0-0.8); MONO % 8.6 % (2.0-8.0); NEUTROPHILS # 4.4 10^3/uL (1.5-8.5); NEUTROPHILS % 58.2 % (36.0-66.0); PLATELET COUNT, AUTOMATED 217 10^3/uL (150-450); RED BLOOD COUNT 4.69 10^6/uL (4.00-5.40); WHITE BLOOD COUNT 7.5 10^3/uL (4.0-10.0)
[2023-10-16 21:28] LABS: CK-MB VALUE MASS < 1.0 NG/ML (<3.6)
[2023-10-16 21:29] LABS: CPK CREATINE PHOSPHOKINASE 162 U/L (34-145); MB/CK RELATIVE INDEX 0.61 (< OR =4)
[2023-10-16 21:30] LABS: ALBUMIN 3.5 G/DL (3.2-5.2); ALKALINE PHOSPHATASE 81 U/L (46-116); ALT/SGPT 27 U/L (7.0-40); AST/SGOT 14 U/L (<34); BILIRUBIN,TOTAL < 0.2 MG/DL (0.3-1.2); BLOOD UREA NITROGEN 10 MG/DL (9-23); CARBON DIOXIDE LEVEL 23 MMOL/L (20-31); CHLORIDE LEVEL 111 MMOL/L (98-107); GLOMERULAR FILTRATION RATE > 60.0 (>60); GLUCOSE, FASTING 135 MG/DL (60-100); MAGNESIUM LEVEL 1.9 MG/DL (1.8-2.4); SODIUM LEVEL 142 MMOL/L (136-145); TOTAL PROTEIN 6.4 G/DL (5.7-8.2)
[2023-10-17 00:46] LABS: MB/CK RELATIVE INDEX 0.6 (< OR =4)
[2023-10-17 04:49] LABS: CK-MB VALUE MASS < 1.0 NG/ML (<3.6)
[2023-10-17 05:05] LABS: CPK CREATINE PHOSPHOKINASE 137 U/L (34-145); MB/CK RELATIVE INDEX 0.72 (< OR =4)
[2023-10-17 06:48] VITALS: BP 127/74; TEMP 99.5; O2SAT 99
[2023-10-17] MEDS: medroxyPROGESTERone 5MG TABLET PO SCH (09:56)
[2023-10-17 11:58] VITALS: O2SAT 97
[2023-10-17] MEDS ORDERED: ISOVUE-370 76% 100ML VIAL As Ordered ONE (14:44)
[2023-10-17 18:36] VITALS: BP 136/78; TEMP 98.2; O2SAT 98
[2023-10-17] MEDS: ACETAMINOPHEN TAB 650MG DOSE (2X325MG) PO PRN (20:11)
[2023-10-17] MEDS: busPIRone 10 MG TAB PO SCH (20:11)
[2023-10-18 06:26] VITALS: BP 146/77; TEMP 98.7; O2SAT 96
[2023-10-18] MEDS: ALBUTEROL 90 MCG/ACT 8GM HFA INHALER INH PRN (12:54)
[2023-10-18 14:36] VITALS: BP 148/88; TEMP 99.2; O2SAT 97
[2023-10-19 06:48] VITALS: BP 124/81; TEMP 99; O2SAT 97
[2023-10-19 08:32] LABS: CHOLESTEROL RISK RATIO 5.6 (<5); HDL CHOLESTEROL 26.6 MG/DL (>40); LDL CHOLESTEROL 100.2 MG/DL (<100); NON-HDL-C 122.4 MG/DL
[2023-10-19] MEDS: guaiFENesin ER TABLET 600 MG TAB PO PRN (09:51)
[2023-10-19 17:40] VITALS: BP 110/62; TEMP 98.2; O2SAT 99
[2023-10-20 06:27] VITALS: BP 114/69; TEMP 98.6; O2SAT 98
[2023-10-20 18:51] VITALS: BP 133/73; TEMP 98.5; O2SAT 99
[2023-10-20 20:13] VITALS: BP 132/85
[2023-10-21 06:10] VITALS: BP 125/59; TEMP 97.2; O2SAT 95
[2023-10-21 13:44] VITALS: BP 128/76; TEMP 98.2; O2SAT 98
[2023-10-21] MEDS: BACITRACIN OINTMENT 30GM TUBE TOP PRN (14:52)
[2023-10-21] MEDS: BENZONATATE 100MG CAPSULE PO PRN (15:31)
[2023-10-22 06:27] VITALS: BP 130/67; TEMP 98.2; O2SAT 96
[2023-10-22 16:01] VITALS: BP 120/63; TEMP 98.1; O2SAT 99
[2023-10-23 06:42] VITALS: BP 113/57; TEMP 98.2; O2SAT 94
[2023-10-23 17:41] VITALS: BP 137/77; TEMP 97.7; O2SAT 98
[2023-10-24 06:43] VITALS: BP 124/77; TEMP 98.3; O2SAT 99
[2023-10-24 18:26] VITALS: BP 139/78; TEMP 98.8
[2023-10-24 21:45] VITALS: BP 139/82
[2023-10-24 21:46] VITALS: BP 139/82; TEMP 98.8; O2SAT 99
[2023-10-25 06:47] VITALS: BP 140/81; TEMP 98; O2SAT 100
[2023-10-25] MEDS ORDERED: ZOLO100T PO (09:34)
[2023-10-25] MEDS ORDERED: CHLO100T30 PO (09:34)
[2023-10-25] MEDS ORDERED: CHLOR25TA PO (09:34)
[2023-10-25] MEDS ORDERED: TRAZ-189 PO (09:34)
[2023-10-25] MEDS ORDERED: PRAZ1CAP46 PO (09:34)
[2023-10-25] MEDS ORDERED: BUSP10TA79 PO (09:34)
== END 2023-10-25 10:32 | disposition home or self-care (01) | DRG 756 ==
LOC: M ED 14:07 → M ED INP 10-15 12:06 → M PSY 10-15 15:30
PROVIDERS: ADMIT Psychiatry & Neurology Psychiatry; ATTEND Student in an Organized Health Care Education/Training Program
DX: F41.8 Other specified anxiety disorders (principal); Z68.44 Body mass index [BMI] 60.0-69.9, adult; I10 Essential (primary) hypertension; E66.01 Morbid (severe) obesity due to excess calories; F79 Unspecified intellectual disabilities; Z76.5 Malingerer [conscious simulation]; F43.10 Post-traumatic stress disorder, unspecified; F60.3 Borderline personality disorder; F60.2 Antisocial personality disorder; F12.10 Cannabis abuse, uncomplicated; R07.9 Chest pain, unspecified; E78.5 Hyperlipidemia, unspecified; F17.200 Nicotine dependence, unspecified, uncomplicated; K21.9 Gastro-esophageal reflux disease without esophagitis; J45.909 Unspecified asthma, uncomplicated; G47.00 Insomnia, unspecified; Z63.8 Other specified problems related to primary support group; Z79.899 Other long term (current) drug therapy; Z88.0 Allergy status to penicillin; Z88.2 Allergy status to sulfonamides; Z88.8 Allergy status to other drugs, medicaments and biological substances; Z91.018 Allergy to other foods; Z91.040 Latex allergy status; Z81.8 Family history of other mental and behavioral disorders; Z62.810 Personal history of physical and sexual abuse in childhood; Z59.00 Homelessness unspecified

== ENCOUNTER 2023-12-28 02:19 | Emergency (ER) | payer MEDICAID, OTHER ==
[~2023-12-28] VITALS: Ht 172.7 cm; Wt 90.9 kg
[~2023-12-28 02:19] MED LIST changes: +CHLOR25TA PO; +DOXY-323 PO; -DOXY-443 PO
[2023-12-28 03:00] LABS: HEMATOCRIT 42.2 % (36.0-47.0); HEMOGLOBIN 13.1 g/dl (12.0-15.5); MEAN CORPUSCULAR HEMOGLOBIN 27.2 pg (27.0-33.0); MEAN CORPUSCULAR VOLUME 87.6 fl (80.0-96.0); PLATELET COUNT, AUTOMATED 210 10^3/uL (150-450); RED BLOOD COUNT 4.82 10^6/uL (4.00-5.40)
[2023-12-28 03:14] LABS: AMPHETAMINES LEVEL URINE NEGATIVE (NEGATIVE); BARBITURATES URINE NEGATIVE (NEGATIVE); BENZODIAZEPINES URINE NEGATIVE (NEGATIVE); COCAINE METABOLITE URINE NEGATIVE (NEGATIVE)
[2023-12-28 03:15] LABS: CANNABINOIDS URINE NEGATIVE (NEGATIVE); METHADONE URINE NEGATIVE (NEGATIVE); OPIATES URINE NEGATIVE (NEGATIVE); PHENCYCLIDINE URINE NEGATIVE (NEGATIVE)
[2023-12-28 03:16] LABS: ETHYL ALCOHOL (ETHANOL) < 0.003 % (0.000-0.010)
[2023-12-28 03:18] LABS: ALBUMIN 3.7 G/DL (3.2-5.2); ALKALINE PHOSPHATASE 124 U/L (46-116); ALT/SGPT 163 U/L (7.0-40); AST/SGOT 77 U/L (<34); BILIRUBIN,DIRECT 0.2 MG/DL (<0.4); BILIRUBIN,TOTAL 0.3 MG/DL (0.3-1.2); BLOOD UREA NITROGEN 14 MG/DL (9-23); CARBON DIOXIDE LEVEL 21 MMOL/L (20-31); CHLORIDE LEVEL 112 MMOL/L (98-107); CREATININE FOR GFR 0.81 MG/DL (0.55-1.30); GLOMERULAR FILTRATION RATE > 60.0 (>60); GLUCOSE, FASTING 99 MG/DL (60-100); POTASSIUM SERUM 4.4 MMOL/L (3.5-5.1); SALICYLATE LEVEL < 3.0 MG/DL (<30); SODIUM LEVEL 143 MMOL/L (136-145); TOTAL PROTEIN 6.9 G/DL (5.7-8.2)
[2023-12-28 03:20] LABS: THYROID STIMULATING HORMONE 6.135 uIU/ML (0.55-4.78)
[2023-12-28] MEDS ORDERED: metroNIDAZOLE (FLAGYL) 500MG TABLET PO ONE (09:00)
[2023-12-28] MEDS ORDERED: metroNIDAZOLE (FLAGYL) 500MG TABLET PO SCH (09:00)
[2023-12-28] MEDS ORDERED: ENTER DRUG NAME HERE (PATIENT'S OWN MED) PO ONE (09:25)
[2023-12-28] MEDS ORDERED: ENTER DRUG NAME HERE (PATIENT'S OWN MED) PO SCH (09:25)
[2023-12-28] MEDS: CIPROFLOXACIN 500MG TABLET PO ONE (10:28)
[2023-12-28] MEDS: metroNIDAZOLE (FLAGYL) 500MG TABLET PO ONE (10:29)
[2023-12-28 11:10] VITALS: BP 116/85; TEMP 98.4; O2SAT 96
== END 2023-12-28 11:12 | disposition home or self-care (01) ==
LOC: M ED 02:19
DX: F60.3 Borderline personality disorder (principal); Z76.5 Malingerer [conscious simulation]; F32.A Depression, unspecified; Z88.0 Allergy status to penicillin; Z88.2 Allergy status to sulfonamides; Z88.8 Allergy status to other drugs, medicaments and biological substances; Z91.018 Allergy to other foods; Z79.51 Long term (current) use of inhaled steroids; Z79.2 Long term (current) use of antibiotics; Z79.84 Long term (current) use of oral hypoglycemic drugs; Z79.899 Other long term (current) drug therapy

== ENCOUNTER 2024-01-01 02:11 | Emergency (ER) | payer OTHER ==
[~2024-01-01] VITALS: Ht 157.5 cm; Wt 168.9 kg
[2024-01-01 03:30] LABS: AMPHETAMINES LEVEL URINE NEGATIVE (NEGATIVE); BARBITURATES URINE NEGATIVE (NEGATIVE); BENZODIAZEPINES URINE NEGATIVE (NEGATIVE); CANNABINOIDS URINE NEGATIVE (NEGATIVE); COCAINE METABOLITE URINE NEGATIVE (NEGATIVE); METHADONE URINE NEGATIVE (NEGATIVE); OPIATES URINE NEGATIVE (NEGATIVE); PHENCYCLIDINE URINE NEGATIVE (NEGATIVE)
[2024-01-01 03:32] LABS: ETHYL ALCOHOL (ETHANOL) 0.003 % (0.000-0.010)
[2024-01-01 03:34] LABS: ALBUMIN 3.3 G/DL (3.2-5.2); ALKALINE PHOSPHATASE 96 U/L (46-116); ALT/SGPT 66 U/L (7.0-40); AST/SGOT 33 U/L (<34); BILIRUBIN,DIRECT 0.2 MG/DL (<0.4); BILIRUBIN,TOTAL 0.4 MG/DL (0.3-1.2); BLOOD UREA NITROGEN 15 MG/DL (9-23); CALCIUM LEVEL 8.4 MG/DL (8.5-10.1); CARBON DIOXIDE LEVEL 22 MMOL/L (20-31); CHLORIDE LEVEL 111 MMOL/L (98-107); CREATININE FOR GFR 0.75 MG/DL (0.55-1.30); GLOMERULAR FILTRATION RATE > 60.0 (>60); GLUCOSE, FASTING 85 MG/DL (60-100); POTASSIUM SERUM 3.8 MMOL/L (3.5-5.1); SALICYLATE LEVEL < 3.0 MG/DL (<30); SODIUM LEVEL 141 MMOL/L (136-145)
[2024-01-01 03:36] LABS: THYROID STIMULATING HORMONE 3.887 uIU/ML (0.55-4.78)
[2024-01-01 03:55] LABS: HEMATOCRIT 37.5 % (36.0-47.0); HEMOGLOBIN 11.8 g/dl (12.0-15.5); MEAN CORPUSCULAR HEMOGLOBIN 27.2 pg (27.0-33.0); MEAN CORPUSCULAR HGB CONC 31.5 g/dl (32.0-36.5); MEAN CORPUSCULAR VOLUME 86.4 fl (80.0-96.0); PLATELET COUNT, AUTOMATED 152 10^3/uL (150-450); RED BLOOD COUNT 4.34 10^6/uL (4.00-5.40); WHITE BLOOD COUNT 6.2 10^3/uL (4.0-10.0)
[2024-01-01 07:54] LABS: HCG, SERUM QUALITATIVE NEGATIVE (NEGATIVE)
[2024-01-01] MEDS ORDERED: BUSP10TA PO (08:28)
[2024-01-01] MEDS ORDERED: CHLOR25TA PO (08:28)
[2024-01-01] MEDS ORDERED: RIZA10TA58 PO (08:31)
[2024-01-01] MEDS ORDERED: HOME MED LIST COMPLETE! XX SCH (08:45)
[2024-01-01] MEDS ORDERED: RIZA10TA66 PO (09:09)
[2024-01-01] MEDS ORDERED: SENN-186 PO (09:09)
[2024-01-01] MEDS: CIPROFLOXACIN 500MG TABLET PO SCH (09:43)
[2024-01-01] MEDS: RIZATRIPTAN MLT 10 MG TAB PO PRN (09:43)
[2024-01-01] MEDS: LORazepam 2 MG TAB PO STA (13:27)
[2024-01-02 13:35] VITALS: BP 155/96; TEMP 98.9; O2SAT 98
== END 2024-01-02 13:39 | disposition home or self-care (01) ==
LOC: M ED 02:11
DX: F60.3 Borderline personality disorder (principal); I10 Essential (primary) hypertension; J45.909 Unspecified asthma, uncomplicated; E78.5 Hyperlipidemia, unspecified; F60.2 Antisocial personality disorder; Z88.0 Allergy status to penicillin; Z88.2 Allergy status to sulfonamides; Z88.8 Allergy status to other drugs, medicaments and biological substances; Z91.040 Latex allergy status; Z91.018 Allergy to other foods; Z79.51 Long term (current) use of inhaled steroids; Z79.84 Long term (current) use of oral hypoglycemic drugs; Z79.899 Other long term (current) drug therapy

== ENCOUNTER 2024-01-30 20:36 | Emergency (ER) | payer OTHER ==
[~2024-01-30] VITALS: Ht 167.6 cm; Wt 175.0 kg
[~2024-01-30 20:36] MED LIST changes: +BUSP10TA PO; +FLUO-365 PO; -FLUO20CA22 PO; +ONDA-282; +ONDA-282 PO; +ONDA-284 PO; -ONDA4TAB6; -ONDA4TAB6 PO; -ONDA8TAB8 PO; +RIZA10TA58 PO; +RIZA10TA66 PO; +SENN-186 PO
[2024-01-30 22:58] LABS: BASO % 0.5 % (0.0-1.0); EOS # 0.4 10^3/uL (0.0-0.5); EOS % 5.9 % (0.0-3.0); HEMATOCRIT 37.1 % (36.0-47.0); HEMOGLOBIN 11.3 g/dl (12.0-15.5); LYMPH # 1.6 10^3/uL (1.5-5.0); LYMPH % 24.5 % (24.0-44.0); MEAN CORPUSCULAR HEMOGLOBIN 26.5 pg (27.0-33.0); MEAN CORPUSCULAR HGB CONC 30.5 g/dl (32.0-36.5); MEAN CORPUSCULAR VOLUME 86.9 fl (80.0-96.0); MONO # 0.6 10^3/uL (0.0-0.8); MONO % 8.8 % (2.0-8.0); NEUTROPHILS # 3.9 10^3/uL (1.5-8.5); NEUTROPHILS % 59.7 % (36.0-66.0); PLATELET COUNT, AUTOMATED 138 10^3/uL (150-450); RED BLOOD COUNT 4.27 10^6/uL (4.00-5.40); WHITE BLOOD COUNT 6.5 10^3/uL (4.0-10.0)
[2024-01-30 23:09] LABS: PROTHROMBIN TIME 12.9 SECONDS (12.5-14.5)
[2024-01-30 23:22] LABS: ALBUMIN 3.3 G/DL (3.2-5.2); ALKALINE PHOSPHATASE 87 U/L (46-116); ALT/SGPT 39 U/L (7.0-40); AST/SGOT 39 U/L (<34); BILIRUBIN,DIRECT < 0.1 MG/DL (<0.4); BILIRUBIN,TOTAL 0.2 MG/DL (0.3-1.2); BLOOD UREA NITROGEN 6 MG/DL (9-23); CALCIUM LEVEL 8.5 MG/DL (8.5-10.1); CARBON DIOXIDE LEVEL 23 MMOL/L (20-31); CHLORIDE LEVEL 110 MMOL/L (98-107); CK-MB VALUE MASS < 1.0 NG/ML (<3.6); CPK CREATINE PHOSPHOKINASE 124 U/L (34-145); CREATININE FOR GFR 0.57 MG/DL (0.55-1.30); GLOMERULAR FILTRATION RATE > 60.0 (>60); GLUCOSE, FASTING 98 MG/DL (60-100); LIPASE 31 U/L (12-53); POTASSIUM SERUM 4.5 MMOL/L (3.5-5.1); SODIUM LEVEL 141 MMOL/L (136-145); TOTAL PROTEIN 6.4 G/DL (5.7-8.2)
[2024-01-30] MEDS: ACETAMINOPHEN 500 MG TAB PO ONE (23:35)
[2024-01-30] MEDS ORDERED: ISOVUE-370 76% 100ML VIAL As Ordered ONE (23:38)
[2024-01-31] MEDS: ONDANSETRON 4MG ORAL DISINTEGRATING TAB PO ONE (00:10)
[2024-01-31 00:24] LABS: CK-MB VALUE MASS < 1.0 NG/ML (<3.6)
[2024-01-31 00:27] LABS: CPK CREATINE PHOSPHOKINASE 110 U/L (34-145)
[2024-01-31 01:34] VITALS: BP 124/64; TEMP 97; O2SAT 97
[2024-02-01] MEDS ORDERED: CIPR500T39 (08:09)
[2024-02-01] MEDS ORDERED: RIZA10TA58 PO (09:40)
[2024-02-01] MEDS ORDERED: LIDO5CRE6 TOP (09:40)
[2024-02-01] MEDS ORDERED: MELA10CA6 PO (09:40)
[2024-02-01] MEDS ORDERED: CHLOR50TA PO (09:40)
[2024-02-01] MEDS ORDERED: CLIN150C17 PO (09:44)
== END 2024-01-31 01:37 | disposition home or self-care (01) ==
LOC: M ED 20:36
DX: R07.81 Pleurodynia (principal); I10 Essential (primary) hypertension; E78.5 Hyperlipidemia, unspecified; J45.909 Unspecified asthma, uncomplicated; G43.909 Migraine, unspecified, not intractable, without status migrainosus; E28.2 Polycystic ovarian syndrome; R94.31 Abnormal electrocardiogram [ECG] [EKG]; Z88.0 Allergy status to penicillin; Z88.2 Allergy status to sulfonamides; Z88.8 Allergy status to other drugs, medicaments and biological substances; Z91.040 Latex allergy status; Z91.018 Allergy to other foods; Z79.84 Long term (current) use of oral hypoglycemic drugs; Z79.899 Other long term (current) drug therapy
CPT/HCPCS: 36415; 71045; 71275; 80048; 80076; 82550; 82553; 83690; 84484; 85025; 85610; 93005; 99284; Q9967

== ENCOUNTER 2024-01-31 14:23 | Emergency (ER) | payer OTHER ==
[~2024-01-31] VITALS: Ht 167.6 cm; Wt 179.2 kg
[2024-01-31 16:55] VITALS: BP 140/76; TEMP 97.8; O2SAT 98
[2024-02-01] MEDS ORDERED: CIPR500T39 (08:09)
[2024-02-01] MEDS ORDERED: CHLOR50TA PO (09:40)
[2024-02-01] MEDS ORDERED: LIDO5CRE6 TOP (09:40)
[2024-02-01] MEDS ORDERED: RIZA10TA58 PO (09:40)
[2024-02-01] MEDS ORDERED: MELA10CA6 PO (09:40)
[2024-02-01] MEDS ORDERED: CLIN150C17 PO (09:44)
== END 2024-01-31 17:45 | disposition home or self-care (01) ==
LOC: M ED 14:23
DX: S93.401A Sprain of unspecified ligament of right ankle, initial encounter (principal); Y92.9 Unspecified place or not applicable; Y93.9 Activity, unspecified; Y99.9 Unspecified external cause status; I10 Essential (primary) hypertension; Z88.0 Allergy status to penicillin; Z88.2 Allergy status to sulfonamides; Z88.8 Allergy status to other drugs, medicaments and biological substances; Z91.040 Latex allergy status; Z91.018 Allergy to other foods; Z79.84 Long term (current) use of oral hypoglycemic drugs; Z79.899 Other long term (current) drug therapy

== ENCOUNTER 2024-02-01 00:39 | Emergency (ER) | payer OTHER ==
[~2024-02-01] VITALS: Ht 167.6 cm; Wt 164.0 kg
[2024-02-01 01:53] LABS: AMPHETAMINES LEVEL URINE NEGATIVE (NEGATIVE); BARBITURATES URINE NEGATIVE (NEGATIVE); BENZODIAZEPINES URINE NEGATIVE (NEGATIVE); CANNABINOIDS URINE NEGATIVE (NEGATIVE); COCAINE METABOLITE URINE NEGATIVE (NEGATIVE); METHADONE URINE NEGATIVE (NEGATIVE); OPIATES URINE NEGATIVE (NEGATIVE); PHENCYCLIDINE URINE NEGATIVE (NEGATIVE)
[2024-02-01 01:56] LABS: HEMATOCRIT 36.1 % (36.0-47.0); HEMOGLOBIN 11.3 g/dl (12.0-15.5); MEAN CORPUSCULAR HEMOGLOBIN 27.2 pg (27.0-33.0); MEAN CORPUSCULAR HGB CONC 31.3 g/dl (32.0-36.5); PLATELET COUNT, AUTOMATED 167 10^3/uL (150-450); RED BLOOD COUNT 4.15 10^6/uL (4.00-5.40)
[2024-02-01 02:20] LABS: ETHYL ALCOHOL (ETHANOL) 0.007 % (0.000-0.010)
[2024-02-01 02:21] LABS: SALICYLATE LEVEL < 3.0 MG/DL (<30)
[2024-02-01 02:22] LABS: ALBUMIN 3.4 G/DL (3.2-5.2); ALKALINE PHOSPHATASE 99 U/L (46-116); ALT/SGPT 35 U/L (7.0-40); AST/SGOT 18 U/L (<34); BILIRUBIN,DIRECT < 0.1 MG/DL (<0.4); BILIRUBIN,TOTAL 0.2 MG/DL (0.3-1.2); BLOOD UREA NITROGEN 9 MG/DL (9-23); CALCIUM LEVEL 9.2 MG/DL (8.5-10.1); CARBON DIOXIDE LEVEL 29 MMOL/L (20-31); CHLORIDE LEVEL 107 MMOL/L (98-107); CREATININE FOR GFR 0.73 MG/DL (0.55-1.30); GLOMERULAR FILTRATION RATE > 60.0 (>60); GLUCOSE, FASTING 89 MG/DL (60-100); POTASSIUM SERUM 3.9 MMOL/L (3.5-5.1); SODIUM LEVEL 140 MMOL/L (136-145); TOTAL PROTEIN 6.3 G/DL (5.7-8.2)
[2024-02-01 02:24] LABS: THYROID STIMULATING HORMONE 5.049 uIU/ML (0.55-4.78)
[2024-02-01 02:25] LABS: HCG, SERUM QUALITATIVE NEGATIVE (NEGATIVE)
[2024-02-01] MEDS: ACETAMINOPHEN 325 MG TAB PO ONE (08:05)
[2024-02-01] MEDS ORDERED: CIPR500T39 (08:09)
[2024-02-01] MEDS ORDERED: CHLOR50TA PO (09:40)
[2024-02-01] MEDS ORDERED: MELA10CA6 PO (09:40)
[2024-02-01] MEDS ORDERED: RIZA10TA58 PO (09:40)
[2024-02-01] MEDS ORDERED: LIDO5CRE6 TOP (09:40)
[2024-02-01] MEDS ORDERED: CLIN150C17 PO (09:44)
[2024-02-01] MEDS ORDERED: HOME MED LIST COMPLETE! XX SCH (09:45)
[2024-02-01 10:53] VITALS: BP 133/82; TEMP 98.3; O2SAT 98
[2024-02-02] MEDS ORDERED: METH-1165 PO (07:22)
== END 2024-02-01 12:58 | disposition home or self-care (01) ==
LOC: M ED 00:39
DX: F60.3 Borderline personality disorder (principal); I10 Essential (primary) hypertension; J45.909 Unspecified asthma, uncomplicated; E78.5 Hyperlipidemia, unspecified; F17.210 Nicotine dependence, cigarettes, uncomplicated; F12.10 Cannabis abuse, uncomplicated; Z88.0 Allergy status to penicillin; Z88.1 Allergy status to other antibiotic agents; Z88.2 Allergy status to sulfonamides; Z88.8 Allergy status to other drugs, medicaments and biological substances; Z91.018 Allergy to other foods; Z91.040 Latex allergy status; Z79.84 Long term (current) use of oral hypoglycemic drugs; Z79.899 Other long term (current) drug therapy

== ENCOUNTER 2024-02-01 23:16 | Emergency (ER) | payer OTHER ==
[~2024-02-01] VITALS: Ht 167.6 cm; Wt 181.1 kg
[~2024-02-01 23:16] MED LIST changes: +CIPR500T39; +LIDO5CRE6 TOP; +MELA10CA6 PO
[2024-02-02 06:21] VITALS: BP 105/54; TEMP 97.2; O2SAT 97
[2024-02-02] MEDS ORDERED: METH-1165 PO (07:22)
[2024-02-02] MEDS: methocarbamoL 750 MG TAB PO ONE (07:29)
[2024-02-02] MEDS: ACETAMINOPHEN 325 MG TAB PO ONE (07:29)
== END 2024-02-02 08:10 | disposition home or self-care (01) ==
LOC: M ED 23:16
DX: F60.3 Borderline personality disorder (principal); M54.50 Low back pain, unspecified; M62.830 Muscle spasm of back; F17.210 Nicotine dependence, cigarettes, uncomplicated; F12.10 Cannabis abuse, uncomplicated; Z88.0 Allergy status to penicillin; Z88.2 Allergy status to sulfonamides; Z88.8 Allergy status to other drugs, medicaments and biological substances; Z91.040 Latex allergy status; Z91.018 Allergy to other foods; Z79.899 Other long term (current) drug therapy; Z79.84 Long term (current) use of oral hypoglycemic drugs

== ENCOUNTER 2024-05-07 17:56 | Emergency (ER) | payer OTHER ==
[~2024-05-07] VITALS: Ht 167.6 cm; Wt 179.1 kg
[2024-05-08 02:20] LABS: BASO % 0.4 % (0.0-1.0); EOS # 0.3 10^3/uL (0.0-0.5); EOS % 3.6 % (0.0-3.0); HEMATOCRIT 38.9 % (36.0-47.0); LYMPH # 1.7 10^3/uL (1.5-5.0); LYMPH % 22.3 % (24.0-44.0); MEAN CORPUSCULAR HEMOGLOBIN 27.2 pg (27.0-33.0); MEAN CORPUSCULAR HGB CONC 30.8 g/dl (32.0-36.5); MEAN CORPUSCULAR VOLUME 88.2 fl (80.0-96.0); MONO # 0.6 10^3/uL (0.0-0.8); MONO % 7.2 % (2.0-8.0); NEUTROPHILS # 5.2 10^3/uL (1.5-8.5); NEUTROPHILS % 66.1 % (36.0-66.0); PLATELET COUNT, AUTOMATED 197 10^3/uL (150-450); RED BLOOD COUNT 4.41 10^6/uL (4.00-5.40); WHITE BLOOD COUNT 7.8 10^3/uL (4.0-10.0)
[2024-05-08 02:52] LABS: BLOOD UREA NITROGEN 11 MG/DL (9-23); CARBON DIOXIDE LEVEL 28 MMOL/L (20-31); CHLORIDE LEVEL 108 MMOL/L (98-107); CREATININE FOR GFR 0.61 MG/DL (0.55-1.30); GLOMERULAR FILTRATION RATE > 60.0 (>60); GLUCOSE, FASTING 86 MG/DL (60-100); SODIUM LEVEL 139 MMOL/L (136-145)
[2024-05-08 04:14] LABS: ERYTHROCYTE SEDIMENTATION RATE 44 mm/hr (0-20)
[2024-05-08 04:40] VITALS: BP 122/59; TEMP 98.8; O2SAT 96
[2024-05-08] MEDS: traMADol 50 MG TAB PO ONE (04:42)
[2024-05-08] MEDS: DALBAVANCIN 1,500 MG in D5W 250 ML IV ONE (05:19)
== END 2024-05-08 08:15 | disposition home or self-care (01) ==
LOC: EDBD 17:56 → M ED 17:56
DX: L03.113 Cellulitis of right upper limb (principal); F32.A Depression, unspecified; I10 Essential (primary) hypertension; E78.5 Hyperlipidemia, unspecified; F17.210 Nicotine dependence, cigarettes, uncomplicated; F12.10 Cannabis abuse, uncomplicated; Z88.0 Allergy status to penicillin; Z88.2 Allergy status to sulfonamides; Z88.8 Allergy status to other drugs, medicaments and biological substances; Z91.018 Allergy to other foods; Z91.040 Latex allergy status; Z79.01 Long term (current) use of anticoagulants; Z79.84 Long term (current) use of oral hypoglycemic drugs; Z79.899 Other long term (current) drug therapy
CPT/HCPCS: 80048; 83605; 85025; 85652; 86140; 87040; 93971; 96374; 99284; J0875

== ENCOUNTER 2024-05-14 15:51 | Emergency (ER) | payer OTHER ==
[2024-05-14 16:33] VITALS: BP 145/86; TEMP 98.8; O2SAT 98
== END 2024-05-14 18:58 | disposition home or self-care (01) ==
LOC: M ED 15:51
DX: S80.01XA Contusion of right knee, initial encounter (principal); Y92.410 Unspecified street and highway as the place of occurrence of the external cause; Y93.9 Activity, unspecified; Y99.9 Unspecified external cause status; I10 Essential (primary) hypertension; J45.909 Unspecified asthma, uncomplicated; F41.9 Anxiety disorder, unspecified; F32.A Depression, unspecified; Z88.0 Allergy status to penicillin; Z88.2 Allergy status to sulfonamides; Z88.8 Allergy status to other drugs, medicaments and biological substances; Z91.018 Allergy to other foods; Z79.01 Long term (current) use of anticoagulants; Z79.84 Long term (current) use of oral hypoglycemic drugs; Z79.899 Other long term (current) drug therapy

== ENCOUNTER 2024-05-16 17:35 | Inpatient (IN) | payer MEDICAID, OTHER, SELFPAY ==
[~2024-05-16] VITALS: Ht 167.6 cm; Wt 179.1 kg
[~2024-05-16 17:35] MED LIST changes: -DOXY-323 PO; +DOXY-441 PO; +GABA-1172 PO; -GABA-282 PO
[2024-05-16 21:40] LABS: AMPHETAMINES LEVEL URINE NEGATIVE (NEGATIVE); BARBITURATES URINE NEGATIVE (NEGATIVE)
[2024-05-16 21:41] LABS: BENZODIAZEPINES URINE NEGATIVE (NEGATIVE); COCAINE METABOLITE URINE NEGATIVE (NEGATIVE); METHADONE URINE NEGATIVE (NEGATIVE); OPIATES URINE NEGATIVE (NEGATIVE); PHENCYCLIDINE URINE NEGATIVE (NEGATIVE)
[2024-05-16 21:43] LABS: HEMATOCRIT 38.8 % (36.0-47.0); MEAN CORPUSCULAR HEMOGLOBIN 27.6 pg (27.0-33.0); MEAN CORPUSCULAR HGB CONC 30.9 g/dl (32.0-36.5); MEAN CORPUSCULAR VOLUME 89.2 fl (80.0-96.0); PLATELET COUNT, AUTOMATED 194 10^3/uL (150-450); RED BLOOD COUNT 4.35 10^6/uL (4.00-5.40); WHITE BLOOD COUNT 8.7 10^3/uL (4.0-10.0)
[2024-05-16 21:45] LABS: CANNABINOIDS URINE POSITIVE (NEGATIVE)
[2024-05-16 22:12] LABS: ETHYL ALCOHOL (ETHANOL) < 0.003 % (0.000-0.010)
[2024-05-16 22:14] LABS: ALBUMIN 3.7 G/DL (3.2-5.2); ALKALINE PHOSPHATASE 91 U/L (46-116); ALT/SGPT 28 U/L (7.0-40); AST/SGOT 15 U/L (<34); BILIRUBIN,DIRECT 0.1 MG/DL (<0.4); BILIRUBIN,TOTAL 0.3 MG/DL (0.3-1.2); BLOOD UREA NITROGEN 14 MG/DL (9-23); CALCIUM LEVEL 9.1 MG/DL (8.5-10.1); CARBON DIOXIDE LEVEL 26 MMOL/L (20-31); CHLORIDE LEVEL 109 MMOL/L (98-107); CREATININE FOR GFR 0.67 MG/DL (0.55-1.30); GLOMERULAR FILTRATION RATE > 60.0 (>60); GLUCOSE, FASTING 82 MG/DL (60-100); HCG, SERUM QUALITATIVE NEGATIVE (NEGATIVE); POTASSIUM SERUM 3.9 MMOL/L (3.5-5.1); SALICYLATE LEVEL < 3.0 MG/DL (<30); SODIUM LEVEL 140 MMOL/L (136-145); TOTAL PROTEIN 6.9 G/DL (5.7-8.2)
[2024-05-16 22:15] LABS: THYROID STIMULATING HORMONE 2.358 uIU/ML (0.55-4.78)
[2024-05-16] MEDS ORDERED: ACETAMINOPHEN TAB 650MG DOSE (2X325MG) PO PRN (22:40)
[2024-05-16] MEDS: RIZATRIPTAN MLT 10 MG TAB PO PRN (22:53)
[2024-05-16] MEDS ORDERED: ADDE20TA PO (23:03)
[2024-05-16] MEDS ORDERED: AMPH1CAP16 PO (23:03)
[2024-05-16] MEDS ORDERED: CHLO25TA88 PO (23:03)
[2024-05-16] MEDS ORDERED: DOCU100C16 PO (23:03)
[2024-05-16 23:58] VITALS: BP 132/84; TEMP 97.4; O2SAT 99
[2024-05-17] MEDS ORDERED: RAMELTEON 8 MG TAB (ROZEREM) PO PRN (00:45)
[2024-05-17] MEDS ORDERED: IBUPROFEN 400MG TAB PO PRN (00:50)
[2024-05-17] MEDS ORDERED: diphenhydrAMINE 25MG CAP PO PRN (00:50)
[2024-05-17] MEDS ORDERED: MAALOX 30 ML SUSP *UDC PO PRN (00:50)
[2024-05-17] MEDS ORDERED: MOM 30ML SUSPENSION UDC PO PRN (00:50)
[2024-05-17] MEDS ORDERED: traZODone 50 MG TAB PO PRN (00:50)
== END 2024-05-17 13:15 | disposition home or self-care (01) | DRG 755 ==
LOC: M ED 17:35 → M ED INP 22:34 → M PSY 23:54
PROVIDERS: ADMIT Psychiatry & Neurology Psychiatry; ATTEND Psychiatry & Neurology Psychiatry
DX: F43.20 Adjustment disorder, unspecified (principal); F79 Unspecified intellectual disabilities; F60.3 Borderline personality disorder; F43.10 Post-traumatic stress disorder, unspecified; F12.10 Cannabis abuse, uncomplicated; F60.2 Antisocial personality disorder; Z63.8 Other specified problems related to primary support group; Z76.5 Malingerer [conscious simulation]; Z79.84 Long term (current) use of oral hypoglycemic drugs; Z79.899 Other long term (current) drug therapy; Z88.0 Allergy status to penicillin; Z88.2 Allergy status to sulfonamides; Z88.8 Allergy status to other drugs, medicaments and biological substances; Z91.018 Allergy to other foods; Z91.040 Latex allergy status

== ENCOUNTER 2024-06-01 18:23 | Inpatient (IN) | payer MEDICAID ==
[~2024-06-01] VITALS: Ht 167.6 cm; Wt 176.7 kg
[~2024-06-01 18:23] MED LIST changes: +ADDE20TA PO; +AMPH1CAP16 PO; +CHLO25TA88 PO
[2024-06-01] MEDS ORDERED: IBUPROFEN 400MG TAB PO PRN (22:05)
[2024-06-01] MEDS ORDERED: traZODone 50 MG TAB PO PRN (22:05)
[2024-06-01] MEDS ORDERED: MOM 30ML SUSPENSION UDC PO PRN (22:05)
[2024-06-01] MEDS ORDERED: MAALOX 30 ML SUSP *UDC PO PRN (22:05)
[2024-06-01] MEDS ORDERED: RA M10TA PO (23:04)
[2024-06-01] MEDS ORDERED: HOME MED LIST COMPLETE! XX SCH (23:05)
[2024-06-01] MEDS: BENZONATATE 100MG CAPSULE PO PRN (23:51)
[2024-06-01] MEDS: RAMELTEON 8 MG TAB (ROZEREM) PO PRN (23:51)
[2024-06-02 06:42] VITALS: BP 137/73; TEMP 97.7; O2SAT 99
[2024-06-02 08:47] LABS: RSV AMPLIFICATION NEGATIVE (NEGATIVE)
[2024-06-02] MEDS ORDERED: DOCUSATE SODIUM 100MG CAPSULE PO PRN (09:20)
[2024-06-02] MEDS: GABAPENTIN 100 MG CAP PO SCH (09:56)
[2024-06-02] MEDS: CETIRIZINE (ZyrTEC) 10 MG TAB PO ONE (09:56)
[2024-06-02] MEDS: metFORMIN (GLUCOPHAGE) 500MG TAB PO SCH (09:56)
[2024-06-02] MEDS: PANTOPRAZOLE 40MG TAB (PROTONIX) PO SCH (09:56)
[2024-06-02] MEDS: FUROSEMIDE 20 MG TAB PO SCH (09:56)
[2024-06-02] MEDS: QUEtiapine FUMARATE 25 MG TAB PO SCH (09:56)
[2024-06-02] MEDS: SERTRALINE 100 MG TAB PO SCH (09:56)
[2024-06-02] MEDS: MONTELUKAST 10 MG TAB PO ONE (09:56)
[2024-06-02] MEDS: ALBUTEROL 90 MCG/ACT 8GM HFA INHALER INH PRN (09:59)
[2024-06-02 11:04] LABS: ALBUMIN 3.4 G/DL (3.2-5.2); ALKALINE PHOSPHATASE 92 U/L (46-116); ALT/SGPT 51 U/L (7.0-40); AST/SGOT 24 U/L (<34); BILIRUBIN,TOTAL 0.2 MG/DL (0.3-1.2); BLOOD UREA NITROGEN 12 MG/DL (9-23); CARBON DIOXIDE LEVEL 26 MMOL/L (20-31); CHLORIDE LEVEL 109 MMOL/L (98-107); CHOLESTEROL LEVEL 199 MG/DL (<200); CHOLESTEROL RISK RATIO 5.18 (<5); CREATININE FOR GFR 0.55 MG/DL (0.55-1.30); GLOMERULAR FILTRATION RATE > 60.0 (>60); GLUCOSE, FASTING 123 MG/DL (60-100); HDL CHOLESTEROL 38.4 MG/DL (>40); LDL CHOLESTEROL 125.2 MG/DL (<100); NON-HDL-C 160.6 MG/DL; POTASSIUM SERUM 4.2 MMOL/L (3.5-5.1); SODIUM LEVEL 139 MMOL/L (136-145); TOTAL PROTEIN 6.7 G/DL (5.7-8.2); TRIGLYCERIDES LEVEL 177 MG/DL (<150)
[2024-06-02 11:07] LABS: THYROXINE (T4) 5.8 UG/DL (4.5-10.9)
[2024-06-02 11:08] LABS: THYROID STIMULATING HORMONE 1.273 uIU/ML (0.55-4.78)
[2024-06-02 11:12] LABS: PROCALCITONIN <0.04 ng/ml
[2024-06-02 11:32] LABS: HEMOGLOBIN A1c 5.4 % (4.0-6.0)
[2024-06-02] MEDS: ACETAMINOPHEN 325 MG TAB PO PRN (12:09)
[2024-06-02 12:15] LABS: FREE THYROXINE INDEX 1.8 % (1.3-4.8); T UPTAKE 31.5 % (22.5-37.0)
[2024-06-02] MEDS: CEPACOL LOZENGE PO PRN (13:54)
[2024-06-02] MEDS: diphenhydrAMINE 25MG CAP PO PRN (15:10)
[2024-06-02 15:21] VITALS: BP 119/74; TEMP 97.8; O2SAT 98
[2024-06-02] MEDS ORDERED: HYDR-3363 PO (16:44)
[2024-06-02] MEDS ORDERED: ISOVUE-370 76% 100ML VIAL As Ordered ONE (17:12)
[2024-06-02] MEDS ORDERED: metFORMIN (GLUCOPHAGE) 500MG TAB PO SCH (18:00)
[2024-06-02] MEDS: guaiFENesin ER TABLET 600 MG TAB PO SCH (20:19)
[2024-06-02] MEDS: APIXABAN 5 MG TAB (ELIQUIS) PO SCH (20:19)
[2024-06-02] MEDS: PRAZOSIN 1 MG CAP PO SCH (20:19)
[2024-06-03] MEDS: CETIRIZINE (ZyrTEC) 10 MG TAB PO SCH (09:10)
[2024-06-03] MEDS: MONTELUKAST 10 MG TAB PO SCH (09:10)
[2024-06-03 16:33] VITALS: BP 124/60; TEMP 98; O2SAT 99
[2024-06-03] MEDS: traZODone 100 MG TAB PO PRN (20:21)
[2024-06-03 20:22] VITALS: BP 124/78
[2024-06-04] MEDS ORDERED: MONT10TA97 PO (08:01)
[2024-06-04] MEDS ORDERED: TRAZ-257 PO (08:01)
[2024-06-04] MEDS ORDERED: QUET1TAB17 PO (08:01)
[2024-06-04] MEDS ORDERED: BENZ1LOZ9 PO (08:01)
[2024-06-05] MEDS ORDERED: DOXY-441 PO (18:05)
== END 2024-06-04 11:54 | disposition home or self-care (01) | DRG 752 ==
LOC: M ED 18:23 → EDBD 18:23 → M ED INP 22:03 → M PSY 22:46
PROVIDERS: ADMIT Psychiatry & Neurology Psychiatry; ATTEND Psychiatry & Neurology Psychiatry
DX: F60.3 Borderline personality disorder (principal); F79 Unspecified intellectual disabilities; I10 Essential (primary) hypertension; J45.909 Unspecified asthma, uncomplicated; E78.5 Hyperlipidemia, unspecified; K21.9 Gastro-esophageal reflux disease without esophagitis; G47.00 Insomnia, unspecified; F17.200 Nicotine dependence, unspecified, uncomplicated; Z79.84 Long term (current) use of oral hypoglycemic drugs; Z79.899 Other long term (current) drug therapy; Z88.0 Allergy status to penicillin; Z88.2 Allergy status to sulfonamides; Z88.8 Allergy status to other drugs, medicaments and biological substances; Z91.018 Allergy to other foods; Z91.040 Latex allergy status; Z59.00 Homelessness unspecified; Z62.810 Personal history of physical and sexual abuse in childhood; Z56.0 Unemployment, unspecified

== ENCOUNTER 2024-06-05 13:32 | Emergency (ER) | payer MEDICAID ==
[~2024-06-05] VITALS: Ht 167.6 cm; Wt 179.1 kg
[~2024-06-05 13:32] MED LIST changes: +BENZ1LOZ9 PO; +MONT10TA97 PO; +QUET1TAB17 PO; +RA M10TA PO; +TRAZ-257 PO
[2024-06-05 17:39] LABS: BASO % 0.3 % (0.0-1.0); EOS # 0.2 10^3/uL (0.0-0.5); EOS % 2.4 % (0.0-3.0); HEMATOCRIT 39.3 % (36.0-47.0); HEMOGLOBIN 12.4 g/dl (12.0-15.5); LYMPH # 1.5 10^3/uL (1.5-5.0); LYMPH % 21.7 % (24.0-44.0); MEAN CORPUSCULAR HEMOGLOBIN 27.6 pg (27.0-33.0); MEAN CORPUSCULAR HGB CONC 31.6 g/dl (32.0-36.5); MEAN CORPUSCULAR VOLUME 87.5 fl (80.0-96.0); MONO # 0.5 10^3/uL (0.0-0.8); MONO % 7.1 % (2.0-8.0); NEUTROPHILS # 4.8 10^3/uL (1.5-8.5); NEUTROPHILS % 68.1 % (36.0-66.0); PLATELET COUNT, AUTOMATED 199 10^3/uL (150-450); RED BLOOD COUNT 4.49 10^6/uL (4.00-5.40)
[2024-06-05] MEDS ORDERED: DOXY-441 PO (18:05)
[2024-06-05] MEDS: DOXYCYCLINE HYCLATE 100MG TABLET PO ONE (18:09)
[2024-06-05 18:16] VITALS: BP 141/72; TEMP 97.8; O2SAT 97
== END 2024-06-05 18:42 | disposition home or self-care (01) ==
LOC: M ED 13:32 → EDBD 13:32 → M ED 18:42
DX: L03.113 Cellulitis of right upper limb (principal); J45.909 Unspecified asthma, uncomplicated; I10 Essential (primary) hypertension; K21.9 Gastro-esophageal reflux disease without esophagitis; F41.9 Anxiety disorder, unspecified; Z88.0 Allergy status to penicillin; Z88.2 Allergy status to sulfonamides; Z88.8 Allergy status to other drugs, medicaments and biological substances; Z91.018 Allergy to other foods; Z79.01 Long term (current) use of anticoagulants; Z79.2 Long term (current) use of antibiotics; Z79.84 Long term (current) use of oral hypoglycemic drugs; Z79.899 Other long term (current) drug therapy

== ENCOUNTER 2024-08-06 00:06 | Emergency (ER) | payer MEDICAID, OTHER ==
[~2024-08-06] VITALS: Ht 167.6 cm; Wt 182.8 kg
[~2024-08-06 00:06] MED LIST changes: -CYCL5TAB PO; +CYCL5TAB4 PO
[2024-08-06 01:36] LABS: BASO % 0.4 % (0.0-1.0); EOS # 0.2 10^3/uL (0.0-0.5); EOS % 2.3 % (0.0-3.0); HEMATOCRIT 36.3 % (36.0-47.0); HEMOGLOBIN 11.1 g/dl (12.0-15.5); LYMPH # 1.9 10^3/uL (1.5-5.0); LYMPH % 22.6 % (24.0-44.0); MEAN CORPUSCULAR HGB CONC 30.6 g/dl (32.0-36.5); MEAN CORPUSCULAR VOLUME 88.3 fl (80.0-96.0); MONO # 0.7 10^3/uL (0.0-0.8); MONO % 7.8 % (2.0-8.0); NEUTROPHILS # 5.5 10^3/uL (1.5-8.5); NEUTROPHILS % 66.4 % (36.0-66.0); PLATELET COUNT, AUTOMATED 181 10^3/uL (150-450); RED BLOOD COUNT 4.11 10^6/uL (4.00-5.40); WHITE BLOOD COUNT 8.3 10^3/uL (4.0-10.0)
[2024-08-06 01:53] LABS: BLOOD UREA NITROGEN 14 MG/DL (9-23); CALCIUM LEVEL 8.8 MG/DL (8.5-10.1); CARBON DIOXIDE LEVEL 28 MMOL/L (20-31); CHLORIDE LEVEL 108 MMOL/L (98-107); CK-MB VALUE MASS < 1.0 NG/ML (<3.6); CPK CREATINE PHOSPHOKINASE 171 U/L (34-145); CREATININE FOR GFR 0.73 MG/DL (0.55-1.30); GLOMERULAR FILTRATION RATE > 60.0 (>60); GLUCOSE, FASTING 97 MG/DL (60-100); MB/CK RELATIVE INDEX 0.58 (< OR =4); POTASSIUM SERUM 3.8 MMOL/L (3.5-5.1); SODIUM LEVEL 143 MMOL/L (136-145)
[2024-08-06 03:28] LABS: CK-MB VALUE MASS < 1.0 NG/ML (<3.6)
[2024-08-06 03:29] LABS: CPK CREATINE PHOSPHOKINASE 166 U/L (34-145)
[2024-08-06 04:05] LABS: ETHYL ALCOHOL (ETHANOL) < 0.003 % (0.000-0.010)
[2024-08-06 04:07] LABS: SALICYLATE LEVEL < 3.0 MG/DL (<30)
[2024-08-06 04:09] LABS: THYROID STIMULATING HORMONE 3.765 uIU/ML (0.55-4.78)
[2024-08-06 04:17] LABS: AMPHETAMINES LEVEL URINE NEGATIVE (NEGATIVE); BARBITURATES URINE NEGATIVE (NEGATIVE); BENZODIAZEPINES URINE NEGATIVE (NEGATIVE); COCAINE METABOLITE URINE NEGATIVE (NEGATIVE); METHADONE URINE NEGATIVE (NEGATIVE); OPIATES URINE NEGATIVE (NEGATIVE); PHENCYCLIDINE URINE NEGATIVE (NEGATIVE)
[2024-08-06 04:18] LABS: CANNABINOIDS URINE POSITIVE (NEGATIVE)
[2024-08-06] MEDS ORDERED: FAMO20TA PO (08:40)
[2024-08-06] MEDS ORDERED: TRAZ-186 PO (08:41)
[2024-08-06] MEDS ORDERED: FERR325T19 PO (08:46)
[2024-08-06] MEDS ORDERED: NYST1POW3 TOP (08:48)
[2024-08-06] MEDS ORDERED: DICY-61 PO (08:50)
[2024-08-06] MEDS ORDERED: VENTAER INH (08:53)
[2024-08-06] MEDS ORDERED: APAP325T4 PO (08:57)
[2024-08-06] MEDS ORDERED: BUSP5TA PO (08:58)
[2024-08-06] MEDS ORDERED: DEBL1TAB PO (09:01)
[2024-08-06] MEDS ORDERED: HOME MED LIST COMPLETE! XX SCH (09:10)
[2024-08-06 10:25] VITALS: BP 128/72; TEMP 98.6; O2SAT 97
== END 2024-08-06 11:00 | disposition home or self-care (01) ==
LOC: M ED 00:06
DX: Z04.6 Encounter for general psychiatric examination, requested by authority (principal); R07.89 Other chest pain; I10 Essential (primary) hypertension; E78.5 Hyperlipidemia, unspecified; J45.909 Unspecified asthma, uncomplicated; F41.9 Anxiety disorder, unspecified; F32.A Depression, unspecified; F20.9 Schizophrenia, unspecified; F17.210 Nicotine dependence, cigarettes, uncomplicated; Z88.0 Allergy status to penicillin; Z88.1 Allergy status to other antibiotic agents; Z88.2 Allergy status to sulfonamides; Z88.8 Allergy status to other drugs, medicaments and biological substances; Z91.040 Latex allergy status; Z91.018 Allergy to other foods; Z79.1 Long term (current) use of non-steroidal anti-inflammatories (NSAID); Z79.01 Long term (current) use of anticoagulants; Z79.51 Long term (current) use of inhaled steroids; Z79.899 Other long term (current) drug therapy

== ENCOUNTER 2024-08-06 18:51 | Inpatient (IN) | payer OTHER ==
[~2024-08-06] VITALS: Ht 172.7 cm; Wt 180.0 kg
[~2024-08-06 18:51] MED LIST changes: +APAP325T4 PO; +BUSP5TA PO; +DEBL1TAB PO; +FERR325T19 PO; +NYST1POW3 TOP; +TRAZ-186 PO
[2024-08-06 19:39] LABS: HEMATOCRIT 37.2 % (36.0-47.0); HEMOGLOBIN 11.5 g/dl (12.0-15.5); MEAN CORPUSCULAR HEMOGLOBIN 27.2 pg (27.0-33.0); MEAN CORPUSCULAR HGB CONC 30.9 g/dl (32.0-36.5); MEAN CORPUSCULAR VOLUME 87.9 fl (80.0-96.0); PLATELET COUNT, AUTOMATED 154 10^3/uL (150-450); RED BLOOD COUNT 4.23 10^6/uL (4.00-5.40); WHITE BLOOD COUNT 8.1 10^3/uL (4.0-10.0)
[2024-08-06] MEDS ORDERED: HOME MED LIST COMPLETE! XX SCH (19:50)
[2024-08-06 20:03] LABS: AMPHETAMINES LEVEL URINE NEGATIVE (NEGATIVE); BARBITURATES URINE NEGATIVE (NEGATIVE); BENZODIAZEPINES URINE NEGATIVE (NEGATIVE); COCAINE METABOLITE URINE NEGATIVE (NEGATIVE); METHADONE URINE NEGATIVE (NEGATIVE); OPIATES URINE NEGATIVE (NEGATIVE); PHENCYCLIDINE URINE NEGATIVE (NEGATIVE)
[2024-08-06 20:04] LABS: CANNABINOIDS URINE POSITIVE (NEGATIVE)
[2024-08-06 20:05] LABS: ETHYL ALCOHOL (ETHANOL) < 0.003 % (0.000-0.010)
[2024-08-06 20:07] LABS: ALBUMIN 3.5 G/DL (3.2-5.2); ALKALINE PHOSPHATASE 88 U/L (35-104); ALT/SGPT 34 U/L (7.0-40); AST/SGOT 22 U/L (<34); BILIRUBIN,DIRECT < 0.1 MG/DL (<0.4); BILIRUBIN,TOTAL 0.2 MG/DL (0.3-1.2); BLOOD UREA NITROGEN 13 MG/DL (9-23); CALCIUM LEVEL 8.9 MG/DL (8.5-10.1); CARBON DIOXIDE LEVEL 27 MMOL/L (20-31); CHLORIDE LEVEL 107 MMOL/L (98-107); CREATININE FOR GFR 0.66 MG/DL (0.55-1.30); GLOMERULAR FILTRATION RATE > 60.0 (>60); GLUCOSE, FASTING 85 MG/DL (60-100); POTASSIUM SERUM 4.3 MMOL/L (3.5-5.1); SALICYLATE LEVEL < 3.0 MG/DL (<30); SODIUM LEVEL 142 MMOL/L (136-145); TOTAL PROTEIN 6.9 G/DL (5.7-8.2)
[2024-08-06 20:09] LABS: THYROID STIMULATING HORMONE 3.306 uIU/ML (0.55-4.78)
[2024-08-06 20:10] LABS: HCG, SERUM QUALITATIVE NEGATIVE (NEGATIVE)
[2024-08-06] MEDS: SUMAtriptan SUCCINATE 25 MG TAB PO ONE (20:15)
[2024-08-06] MEDS ORDERED: diphenhydrAMINE 25MG CAP PO PRN (21:50)
[2024-08-06] MEDS ORDERED: MAALOX 30 ML SUSP *UDC PO PRN (21:50)
[2024-08-06] MEDS ORDERED: MOM 30ML SUSPENSION UDC PO PRN (21:50)
[2024-08-06] MEDS ORDERED: OLANZapine 5 MG TAB PO PRN (21:50)
[2024-08-06] MEDS: traZODone 50 MG TAB PO ONE (21:55)
[2024-08-06 23:49] VITALS: BP 153/97; TEMP 97.4
[2024-08-07] MEDS: ACETAMINOPHEN 325 MG TAB PO PRN (05:41)
[2024-08-07 06:31] VITALS: BP 122/94; TEMP 98.2; O2SAT 97
[2024-08-07] MEDS ORDERED: FAMOTIDINE 20 MG TAB PO PRN (08:05)
[2024-08-07] MEDS ORDERED: ALBUTEROL 90 MCG/ACT 8GM HFA INHALER INH PRN (08:05)
[2024-08-07] MEDS ORDERED: DICYCLOMINE 10 MG CAP PO PRN (08:05)
[2024-08-07] MEDS: NICOTINE 14 MG/24 HR TRANSDERMAL TD SCH (09:00)
[2024-08-07] MEDS: GABAPENTIN 300 MG CAP PO SCH (09:04)
[2024-08-07] MEDS: FUROSEMIDE 20 MG TAB PO SCH (09:04)
[2024-08-07] MEDS: FERROUS SULFATE 325MG TAB PO SCH (09:04)
[2024-08-07] MEDS: LORATADINE 10 MG TAB PO SCH (09:04)
[2024-08-07 17:10] VITALS: BP 138/77; TEMP 98.6; O2SAT 98
[2024-08-07] MEDS: APIXABAN 5 MG TAB (ELIQUIS) PO SCH (21:20)
[2024-08-07] MEDS: QUEtiapine FUMARATE 100 MG TAB PO SCH (21:21)
[2024-08-07] MEDS: traZODone 50 MG TAB PO PRN (21:21)
[2024-08-07] MEDS: SUMAtriptan SUCCINATE 25 MG TAB PO PRN (21:21)
[2024-08-08 06:23] VITALS: BP 127/80; TEMP 97.2; O2SAT 94
[2024-08-08 16:13] VITALS: BP 120/69; TEMP 98.2; O2SAT 98
[2024-08-09 06:23] VITALS: BP 117/70; TEMP 97.8; O2SAT 98
== END 2024-08-09 13:23 | disposition home or self-care (01) | DRG 753 ==
LOC: M ED 18:51 → EDBD 18:51 → M ED INP 21:50 → M PSY 23:45
PROVIDERS: ADMIT Psychiatry & Neurology Neurology; ATTEND Psychiatry & Neurology Psychiatry
DX: F31.9 Bipolar disorder, unspecified (principal); F79 Unspecified intellectual disabilities; R45.851 Suicidal ideations; F43.10 Post-traumatic stress disorder, unspecified; F41.1 Generalized anxiety disorder; F17.210 Nicotine dependence, cigarettes, uncomplicated; E66.813 Obesity, class 3; E28.2 Polycystic ovarian syndrome; I10 Essential (primary) hypertension; E78.5 Hyperlipidemia, unspecified; J45.909 Unspecified asthma, uncomplicated; G47.00 Insomnia, unspecified; K21.9 Gastro-esophageal reflux disease without esophagitis; G43.709 Chronic migraine without aura, not intractable, without status migrainosus; Z91.51 Personal history of suicidal behavior; Z56.0 Unemployment, unspecified; Z91.148 Patient's other noncompliance with medication regimen for other reason; Z59.00 Homelessness unspecified; Z62.810 Personal history of physical and sexual abuse in childhood; Z90.49 Acquired absence of other specified parts of digestive tract; Z91.018 Allergy to other foods; Z91.040 Latex allergy status; Z88.8 Allergy status to other drugs, medicaments and biological substances; Z86.711 Personal history of pulmonary embolism; Z79.01 Long term (current) use of anticoagulants; Z79.899 Other long term (current) drug therapy; Z88.0 Allergy status to penicillin; Z88.2 Allergy status to sulfonamides

== ENCOUNTER 2025-05-18 19:18 | Emergency (ER) | payer OTHER, MEDICAID ==
[~2025-05-18] VITALS: Ht 167.6 cm; Wt 150.0 kg
[~2025-05-18 19:18] MED LIST changes: -ABIL400I IM; +ARIP400S IM; -DEPA250T32 PO; -DIPH50CA PO; +DIPH50CA31 PO; +DIVA-41 PO; +DIVA-65 PO; -DIVA500T94 PO; -IBUP-1022 PO; +IBUP600T42 PO; +MELA5TAB44 PO; -MELA5TAB7 PO; +TOPI-256 PO; -TOPI25TA10 PO
[2025-05-18 22:56] VITALS: BP 136/81; TEMP 98.7; O2SAT 98
== END 2025-05-18 23:03 | disposition home or self-care (01) ==
LOC: M ED 19:18
DX: S93.401A Sprain of unspecified ligament of right ankle, initial encounter (principal); Y92.410 Unspecified street and highway as the place of occurrence of the external cause; Y93.9 Activity, unspecified; Y99.9 Unspecified external cause status; W01.0XXA Fall on same level from slipping, tripping and stumbling without subsequent striking against object, initial encounter; Z88.0 Allergy status to penicillin; Z88.2 Allergy status to sulfonamides; Z88.8 Allergy status to other drugs, medicaments and biological substances; Z91.040 Latex allergy status; Z91.018 Allergy to other foods

== ENCOUNTER 2025-05-19 19:57 | Emergency (ER) | payer MEDICAID, OTHER ==
[~2025-05-19] VITALS: Ht 167.6 cm; Wt 150.0 kg
[2025-05-19 20:49] LABS: PLATELET COUNT, AUTOMATED 240 10^3/uL (150-450)
[2025-05-19 20:51] LABS: AMPHETAMINES LEVEL URINE NEGATIVE (NEGATIVE); BARBITURATES URINE NEGATIVE (NEGATIVE); BENZODIAZEPINES URINE NEGATIVE (NEGATIVE); COCAINE METABOLITE URINE NEGATIVE (NEGATIVE); METHADONE URINE NEGATIVE (NEGATIVE); OPIATES URINE NEGATIVE (NEGATIVE); PHENCYCLIDINE URINE NEGATIVE (NEGATIVE)
[2025-05-19 20:52] LABS: CANNABINOIDS URINE POSITIVE (NEGATIVE)
[2025-05-19 21:19] LABS: ETHYL ALCOHOL (ETHANOL) 0.004 % (0.000-0.010)
[2025-05-19 21:20] LABS: SALICYLATE LEVEL < 3.0 MG/DL (<30)
[2025-05-19 21:21] LABS: ALT/SGPT 35 U/L (7.0-40); AST/SGOT 24 U/L (<34); CALCIUM LEVEL 8.9 MG/DL (8.5-10.1); CARBON DIOXIDE LEVEL 24 MMOL/L (20-31); CHLORIDE LEVEL 109 MMOL/L (98-107); CREATININE FOR GFR 0.73 MG/DL (0.55-1.30); GLOMERULAR FILTRATION RATE > 90.0 (>60); POTASSIUM SERUM 4.1 MMOL/L (3.5-5.1); SODIUM LEVEL 143 MMOL/L (136-145)
[2025-05-19 21:24] LABS: HCG, SERUM QUALITATIVE NEGATIVE (NEGATIVE)
[2025-05-20] MEDS ORDERED: ERGO500029 PO (00:37)
[2025-05-20] MEDS ORDERED: FLUT1BLS8 INH (00:37)
[2025-05-20] MEDS ORDERED: TRAZ-257 PO (00:37)
[2025-05-20] MEDS ORDERED: GABA-284 PO (00:37)
[2025-05-20] MEDS ORDERED: VENTAER INH (00:39)
[2025-05-20] MEDS ORDERED: LURA20TA PO (00:39)
[2025-05-20] MEDS ORDERED: HOME MED LIST COMPLETE! XX SCH (00:40)
[2025-05-20 12:24] VITALS: BP 136/83; TEMP 97.6; O2SAT 97
== END 2025-05-20 12:47 | disposition home or self-care (01) ==
LOC: M ED 19:57
DX: F60.3 Borderline personality disorder (principal); I10 Essential (primary) hypertension; J45.909 Unspecified asthma, uncomplicated; E78.5 Hyperlipidemia, unspecified; K21.9 Gastro-esophageal reflux disease without esophagitis; G47.00 Insomnia, unspecified; F43.10 Post-traumatic stress disorder, unspecified; F32.A Depression, unspecified; F17.210 Nicotine dependence, cigarettes, uncomplicated; Z88.0 Allergy status to penicillin; Z88.2 Allergy status to sulfonamides; Z88.8 Allergy status to other drugs, medicaments and biological substances; Z91.018 Allergy to other foods

== ENCOUNTER 2025-07-28 17:57 | Inpatient (IN) | payer OTHER ==
[~2025-07-28] VITALS: Ht 165.1 cm; Wt 162.0 kg
[~2025-07-28 17:57] MED LIST changes: +ERGO500029 PO; +FLUT1BLS8 INH; +GABA-284 PO; +LURA20TA PO; +MELA10TA30 PO; -RA M10TA PO
[2025-07-28 19:04] LABS: PLATELET COUNT, AUTOMATED 214 10^3/uL (150-450)
[2025-07-28 19:27] LABS: AMPHETAMINES LEVEL URINE NEGATIVE (NEGATIVE); BARBITURATES URINE NEGATIVE (NEGATIVE); BENZODIAZEPINES URINE NEGATIVE (NEGATIVE); CANNABINOIDS URINE NEGATIVE (NEGATIVE); COCAINE METABOLITE URINE NEGATIVE (NEGATIVE); METHADONE URINE NEGATIVE (NEGATIVE); OPIATES URINE NEGATIVE (NEGATIVE); PHENCYCLIDINE URINE NEGATIVE (NEGATIVE)
[2025-07-28 19:29] LABS: ETHYL ALCOHOL (ETHANOL) 0.005 % (0.000-0.010)
[2025-07-28 19:31] LABS: ALT/SGPT 29 U/L (7.0-40); AST/SGOT 24 U/L (<34); CALCIUM LEVEL 8.3 MG/DL (8.5-10.1); CARBON DIOXIDE LEVEL 26 MMOL/L (20-31); CHLORIDE LEVEL 109 MMOL/L (98-107); CREATININE FOR GFR 0.71 MG/DL (0.55-1.30); GLOMERULAR FILTRATION RATE > 90.0 (>60); POTASSIUM SERUM 3.9 MMOL/L (3.5-5.1); SALICYLATE LEVEL < 3.0 MG/DL (<30); SODIUM LEVEL 143 MMOL/L (136-145)
[2025-07-28] MEDS ORDERED: OLANZapine 5 MG TAB PO PRN (21:40)
[2025-07-28] MEDS ORDERED: traZODone 50 MG TAB PO PRN (21:40)
[2025-07-28] MEDS ORDERED: MOM 30 ML SUSPENSION UDC PO PRN (21:40)
[2025-07-28] MEDS ORDERED: MAALOX 30 ML SUSP *UDC PO PRN (21:40)
[2025-07-28] MEDS ORDERED: ACETAMINOPHEN 325 MG TAB PO PRN (21:40)
[2025-07-28 23:24] VITALS: BP 132/75; TEMP 97.8; O2SAT 99
[2025-07-29] MEDS: CEPACOL LOZENGE PO PRN (00:06)
[2025-07-29 06:38] VITALS: BP 115/63; TEMP 98.2; O2SAT 98
== END 2025-07-29 10:40 | disposition home or self-care (01) | DRG 752 ==
LOC: M ED 17:57 → M ED INP 21:38 → M PSY 22:51
PROVIDERS: ADMIT Psychiatry & Neurology Neurology; ATTEND Psychiatry & Neurology Psychiatry
DX: F60.3 Borderline personality disorder (principal); F41.1 Generalized anxiety disorder; F43.10 Post-traumatic stress disorder, unspecified; F17.200 Nicotine dependence, unspecified, uncomplicated; Z88.0 Allergy status to penicillin; Z88.2 Allergy status to sulfonamides; Z88.8 Allergy status to other drugs, medicaments and biological substances; Z91.018 Allergy to other foods; Z62.810 Personal history of physical and sexual abuse in childhood; Z91.040 Latex allergy status; Z56.0 Unemployment, unspecified; Z79.01 Long term (current) use of anticoagulants; Z79.899 Other long term (current) drug therapy; Z86.711 Personal history of pulmonary embolism